=== PATIENT | male | born 1950 | race Caucasian/White ===

== ENCOUNTER → 2018-02-05 | Outpatient (CLI) | payer MEDICARE, MEDICAID ==
[2018-02-05 12:55] LABS: CHOLESTEROL 174.94 mg/dL (0-200); TRIGLYCERIDES 130 mg/dL (<150)
[2018-02-05 13:06] LABS: DIRECT LDL 117 mg/dL (<100)
== END ==
LOC: OD 11:35
PROVIDERS: ATTEND Internal Medicine
DX: E78.4 Other hyperlipidemia (principal); I10 Essential (primary) hypertension; I48.0 Paroxysmal atrial fibrillation; I42.8 Other cardiomyopathies; G47.30 Sleep apnea, unspecified; Z79.899 Other long term (current) drug therapy
CPT/HCPCS: 36415; 80061

== ENCOUNTER → 2018-09-16 | Outpatient (CLI) | payer MEDICARE, MEDICAID ==
--- NOTE | 2018-09-16 11:23 | RADIOLOGY REPORT (SQ) ---
EXAM DESCRIPTION: CT CHEST WITHOUT COMPLETED DATE/TIME: 09/16/2018 9:41 am REASON FOR STUDY: PULMONARY INFILTRATE (R91.8) R91.8 OTHER NONSPECIFIC ABNORMAL FINDING OF LUNG FIE LD COMPARISON: 01/07/2016 TECHNIQUE: CT scan performed of the chest without intravenous contrast. Images reviewed with lung, soft tissue and bone windows. Reconstructed coronal and sagittal MPR images reviewed. All images st ored on PACS. All CT scanners at this facility use dose modulation, iterative reconstruction, and/or weight based d osing when appropriate to reduce radiation dose to as low as reasonably achievable (ALARA). [facility]: Dose Right [facility]: CareDose [facility]: Dose Right [facility]: Teradose 4D [facility]: ADOP RADIATION DOSE: CT Rad equipment meets quality standard of care and radiation dose reduction techniq ues were employed. CTDIvol: 20.1 mGy. DLP: 764 mGy-cm. mGy. LIMITATIONS: No technical limitations. FINDINGS: LUNGS AND PLEURA: There are scattered part solid nodules, majority of which are either sta ble or now partially calcified - image 28 left lower lobe 6 mm nodule, previously same size but now p artially calcified. There are a few new nodules, for example image 41 right lower lobe pleural-based 7 mm. Largest new nodule is 10 mm pleural-based anterior right upper lobe. HILAR AND MEDIASTINAL STRUCTURES: No identified masses or abnormal nodes. No obvious aneurysm. HEART AND VASCULAR STRUCTURES: No aneurysm. No pericardial effusion. UPPER ABDOMEN: No significant findings. Limited exam. THYROID AND OTHER SOFT TISSUES: Subcentimeter nodule left lobe. Partially calcified subcentimeter no dule right lobe, unchanged. BONES: Nothing acute. HARDWARE: None in the chest. OTHER: No other significant findings. IMPRESSION: Mostly stable subcentimeter pulmonary nodules. There is a new 1 cm nodule in the right upper lobe. Low suspicion for malignancy, however accelerated follow-up in 6 months is recommended. Most of the nodules are too small to characterize by PET. TECHNICAL DOCUMENTATION: JOB ID: [id number] Quality ID # [id number]: Final reports with documentation of one or more dose reduction techniques (e.g., Au tomated exposure control, adjustment of the mA and/or kV according to patient size, use of iterative reconstruction technique) 2010 [employer]- All Rights Reserved Reading location - IP/workstation name: [email or web address]
== END ==
LOC: RAD 09:08
PROVIDERS: ATTEND Internal Medicine Critical Care Medicine
DX: R91.8 Other nonspecific abnormal finding of lung field (principal)
CPT/HCPCS: 71250

== ENCOUNTER → 2019-01-26 | Outpatient (CLI) | payer MEDICARE, MEDICAID ==
--- NOTE | 2019-01-26 15:34 | RADIOLOGY REPORT (SQ) ---
EXAM DESCRIPTION: ARTERIAL LOWER EXTREM BILAT COMPLETED DATE/TIME: 01/26/2019 3:23 pm REASON FOR STUDY: PAD I73.9 PERIPHERAL VASCULAR DISEASE, UNSPECIFIED COMPARISON: None. TECHNIQUE: Dynamic and static ronquillo scale and color images acquired of the lower extremity arteries. Additional selected spectral images recorded. ABIs recorded. LIMITATIONS: None. FINDINGS: RIGHT LEG: ABIS: Normal, over 1.0. INFLOW ARTERIES: Normal, no obstruction evident. FEMORAL ARTERIES:Multiphasic waveforms. Normal, no velocity elevation to suggest focal stenosis. Norm al color Doppler evaluation. No aneurysm. POPLITEAL ARTERY:Multiphasic waveforms. Normal, no velocity elevation to suggest focal stenosis. Norm al color Doppler evaluation. No aneurysm. PATENT TIBIOPERONEAL TRUNK AND 3 VESSEL RUNOFF: Yes, normal vessels. TBI: Not performed. OTHER: There is a popliteal cyst noted. This measures 2.8 x 2.6 x 1.0 cm. LEFT LEG: ABIS: Normal, over 1.0. INFLOW ARTERIES: Normal, no obstruction evident. FEMORAL ARTERIES:Multiphasic waveforms. Normal, no velocity elevation to suggest focal stenosis. Norm al color Doppler evaluation. No aneurysm. POPLITEAL ARTERY:Multiphasic waveforms. Normal, no velocity elevation to suggest focal stenosis. Norm al color Doppler evaluation. No aneurysm. PATENT TIBIOPERONEAL TRUNK AND 3 VESSEL RUNOFF: Yes, normal vessels. TBI: Not performed. OTHER: No other significant finding. IMPRESSION: NORMAL BILATERAL LOWER EXTREMITY ARTERIAL DOPPLER WITH ABIs. INCIDENTAL NOTE IS MADE OF A SMALL RIGHT POPLITEAL CYST. COMMENT: [facility] NORMAL: Greater than 1.0 MINIMAL DISEASE: 0.9 to 1.0 CLAUDICATION: 0.5 to 0.9 SEVERE ARTERIAL DISEASE: Less than 0.5 [facility] NORMAL: Greater than 1.0 (1.2 If Heavy Calcifications) NORMAL TO MILD ISCHEMIA: 0.8 to 1.0 MODERATE ISCHEMIA: 0.4 to 0.8 SEVERE ISCHEMIA: Less than 0.4 TECHNICAL DOCUMENTATION: JOB ID: [id number] [employer]- All Rights Reserved Reading location - IP/workstation name: [email or web address]
== END ==
LOC: SP 13:51
PROVIDERS: ATTEND Specialist
DX: I73.9 Peripheral vascular disease, unspecified (principal)
CPT/HCPCS: 93925

== ENCOUNTER → 2019-07-13 | Outpatient (CLI) | payer MEDICAID, MEDICARE ==
--- NOTE | 2019-07-13 10:16 | RADIOLOGY REPORT (SQ) ---
EXAM DESCRIPTION: CT CHEST WITHOUT COMPLETED DATE/TIME: 07/13/2019 9:54 am REASON FOR STUDY: COUGH R05 COUGH R91.1 SOLITARY PULMONARY NODULE COMPARISON: CT chest dated 09/16/2018 and 01/07/2016 TECHNIQUE: CT scan performed of the chest without intravenous contrast. Images reviewed with lung, soft tissue and bone windows. Reconstructed coronal and sagittal MPR images reviewed. All images st ored on PACS. All CT scanners at this facility use dose modulation, iterative reconstruction, and/or weight based d osing when appropriate to reduce radiation dose to as low as reasonably achievable (ALARA). [facility]: Dose Right [facility]: CareDose [facility]: Dose Right [facility]: Teradose 4D [facility]: Smart Dec[employer] RADIATION DOSE: CT Rad equipment meets quality standard of care and radiation dose reduction techniq ues were employed. CTDIvol: 17.8 mGy. DLP: 811 mGy-cm. mGy. LIMITATIONS: No technical limitations. FINDINGS: LUNGS AND PLEURA: Previously described 1 cm nodule in the medial aspect of the right upper lobe adjacent to the anterior mediastinum has increased in size and now 1.7 cm. It is slightly lobu lar in appearance. This is best demonstrated on series 4, image 53. There is a subpleural nodule in the right lower lobe. This is best demonstrated on series 4, image 76. This measures 1.8 cm in darwin meter. It has increased in size as well. Small ground-glass opacity best demonstrated on series 4, image 39 is grossly unchanged. This measures 8.9 mm in diameter. HILAR AND MEDIASTINAL STRUCTURES: Enlarging pretracheal and precarinal lymph nodes. There is bulky s ub- carinal adenopathy. There is right hilar adenopathy. HEART AND VASCULAR STRUCTURES: Unremarkable. UPPER ABDOMEN: No significant findings. Limited exam. THYROID AND OTHER SOFT TISSUES: No masses. No adenopathy. BONES: No significant finding. HARDWARE: None in the chest. OTHER: No other significant findings. IMPRESSION: 1. Enlarging pulmonary nodules in the right upper and lower lobes as described above. F airly extensive mediastinal, right hilar and subcarinal adenopathy. Findings are suspicious for neop lasm. Correlation with PET-CT is recommended. TECHNICAL DOCUMENTATION: JOB ID: [id number] Quality ID # 436: Final reports with documentation of one or more dose reduction techniques (e.g., Au tomated exposure control, adjustment of the mA and/or kV according to patient size, use of iterative reconstruction technique) 2010 [employer]- All Rights Reserved Reading location - IP/workstation name: [email or web address]
== END ==
LOC: RAD 09:43
PROVIDERS: ATTEND Internal Medicine Critical Care Medicine
DX: R05 Cough (principal); R91.1 Solitary pulmonary nodule
CPT/HCPCS: 71250

== ENCOUNTER → 2019-08-03 | Outpatient (CLI) | payer MEDICAID, MEDICARE ==
--- NOTE | 2019-08-03 13:27 | RADIOLOGY REPORT (SQ) ---
EXAM DESCRIPTION: MRI RT LOWER JOINT WITHOUT COMPLETED DATE/TIME: 08/03/2019 9:05 am REASON FOR STUDY: RIGHT KNEE PAIN (M25.561) M25.561 PAIN IN RIGHT KNEE COMPARISON: None. TECHNIQUE: Rightknee images acquired and stored on PACS. Multiplanar images include fat sensitive s equences as T1, water sensitive sequences as FST2 or STIR, cartilage sensitive sequences as FSPD, and gradient echo sequences. LIMITATIONS: Motion. FINDINGS: JOINT AND BURSAE: No effusion. BONE CORTEX AND MARROW: No alteration of signal to suggest marrow replacement. No worrisome bone lesi ons. No occult fracture. ACL: Intact. PCL: Intact. MCL: Intact. No periligamentous edema or fluid. LCL: Intact. No periligamentous edema or fluid. MEDIAL MENISCUS: Medial extrusion. Very little normal remaining meniscal tissue. LATERAL MENISCUS: Lateral extrusion. Very little normal remaining meniscal tissue. MEDIAL COMPARTMENT: Bulky osteophytes. No subchondral edema. LATERAL COMPARTMENT: Bulky osteophytes. Very little remaining normal cartilage. Mild subchondral ed brian tibial plateau. PATELLA: Moderate osteophytes. Subchondral cyst formation. Intact retinaculum EXTENSOR MECHANISM: Intact. Quadriceps and patella tendons normal. SOFT TISSUES: Moderate size Cazares's cyst. OTHER: No other significant finding. IMPRESSION: 1. Chronic medial and lateral meniscal tears. 2. Advanced tricompartment osteoarthritis. TECHNICAL DOCUMENTATION: JOB ID: [id number]- All Rights Reserved Reading location - IP/workstation name: [facility] [facility] [employer] [email or web address]
== END ==
LOC: RAD 07:59
PROVIDERS: ATTEND Orthopaedic Surgery
DX: M17.11 Unilateral primary osteoarthritis, right knee (principal); M23.203 Derangement of unspecified medial meniscus due to old tear or injury, right knee; M23.200 Derangement of unspecified lateral meniscus due to old tear or injury, right knee; M25.561 Pain in right knee

== ENCOUNTER → 2019-11-30 | Outpatient (CLI) | payer MEDICARE ==
[2019-11-30 17:28] LABS: ANION GAP 11 (5-19); BLOOD UREA NITROGEN 21 mg/dL (7-20); CALCIUM 10.9 mg/dL (8.4-10.2); CARBON DIOXIDE 26 mmol/L (22-30); CHLORIDE 101 mmol/L (98-107); GLUCOSE 81 mg/dL (75-110); POTASSIUM 4.8 mmol/L (3.6-5.0)
== END ==
LOC: OD 15:59
PROVIDERS: ATTEND Specialist
DX: I48.0 Paroxysmal atrial fibrillation (principal); R06.02 Shortness of breath; E78.49 Other hyperlipidemia; E78.5 Hyperlipidemia, unspecified
CPT/HCPCS: 36415; 80048

== ENCOUNTER 2020-02-21 11:34 | Inpatient (IN) | payer MEDICARE ==
[~2020-02-21 11:34] MED LIST: ROCURONIUM BROMIDE INJ 50 MG/5 ML VIAL IV ONE; SUCCINYLCHOLINE CHLORIDE INJ 200 MG/10 ML VIAL ONE
[2020-02-21] MEDS ORDERED: LEVOFLOXACIN 750 MG/D5W RTU 750 MG/150 ML RTUPB IV ONE (12:35)
[2020-02-21] MEDS ORDERED: RINGERS LACTATED IV ONE (12:35)
--- NOTE | 2020-02-21 12:38 | ER Document Report ---
ED Medical Screen (RME) - General Chief Complaint: Abdominal Pain Stated Complaint: FLANK PAIN Time Seen by Provider: 02/21/20 12:28 Primary Care Provider: SKYLER RUIZ MD [Primary Care Provider] - Follow up as needed Notes: HPI: 69-year-old male with history of hypertension high cholesterol, atrial fibrillation, cholecystectomy presenting to the emergency department complaining of right flank right lower quadrant pain over the last 4 days. Has had chills at home no definite fevers. No dysuria penile or testicular pain. Denies nausea vomiting. PHYSICAL EXAMINATION: Moderately uncomfortable. Slightly diaphoretic. Irregularly irregular heartbeat. Obese abdomen, moderate tenderness with slight guarding right lower quadrant, limited by triage positioning. Patient was given Toradol 30 mg and fentanyl 100 mcg by EMS already I have greeted and performed a rapid initial assessment of this patient. A comprehensive ED assessment and evaluation of the patient, analysis of test results and completion of medical decision making process will be conducted by an additional ED providers. TRAVEL OUTSIDE OF THE [place] IN LAST 30 DAYS: No - Related Data Allergies/Adverse Reactions: Penicillins Allergy (Severe, Verified 06/16/13 08:53) Anaphylaxis Tetanus Vaccines and Toxoid [Tetanus] Allergy (Severe, Verified 06/16/13 08:53) Anaphylaxis Past Medical History - Social History Frequency of alcohol use: None Drug Abuse: None - Past Medical History Cardiac Medical History: Reports: Hx Congestive Heart Failure, Hx Hypertension Pulmonary Medical History: Reports: Hx COPD Denies: Hx Tuberculosis GI Medical History: Reports: Hx Gastroesophageal Reflux Disease Past Surgical History: Reports: Hx Cardiac Catheterization - ablasion February 2014 Physical Exam - Vital signs Vitals: Temp Pulse Resp BP Pulse Ox 100.4 F 108 H 20 112/61 94 02/21/20 12:01 02/21/20 12:01 02/21/20 12:01 02/21/20 12:01 02/21/20 12:01 Course - Vital Signs Vital signs: Temp Pulse Resp BP Pulse Ox 99.4 F 108 H 20 112/61 94 02/21/20 12:27 02/21/20 12:01 02/21/20 12:01 02/21/20 12:01 02/21/20 12:01 Doctor's Discharge - Discharge Referrals: SKYLER RUIZ MD [Primary Care Provider] - Follow up as needed
[2020-02-21 13:08] LABS: VENOUS BLOOD BASE EXCESS -0.8 mmol/L; VENOUS BLOOD HCO3 21.7 mmol/L (20-32); VENOUS BLOOD PCO2 29.6 mmHg (35-63); VENOUS BLOOD PH 7.48 (7.30-7.42)
[2020-02-21 13:13] LABS: HEMOGLOBIN 11.4 g/dL (13.5-17.0); MEAN CORPUSCULAR HEMOGLOBIN 31.7 pg (27.0-33.4); MEAN CORPUSCULAR HGB CONC 33.4 g/dL (32.0-36.0); MEAN CORPUSCULAR VOLUME 95 fl (80-97); PLATELET COUNT 200 10^3/uL (150-450); RED BLOOD COUNT 3.58 10^6/uL (4.35-5.55); RED CELL DISTRIBUTION WIDTH 13.3 % (11.5-14.0); WHITE BLOOD COUNT 20.4 10^3/uL (4.0-10.5)
[2020-02-21 13:14] LABS: INTERNATIONAL RATION (INR) 1.22; PROTHROMBIN TIME 15.5 SEC (11.4-15.4)
[2020-02-21 13:30] LABS: ALBUMIN 3.9 g/dL (3.5-5.0); ALKALINE PHOSPHATASE 213 U/L (38-126); ANION GAP 10 (5-19); ASPARTATE AMINO TRANSFERASE 27 U/L (17-59); BILIRUBIN,DIRECT 0.4 mg/dL (0.0-0.4); BILIRUBIN,TOTAL 1.7 mg/dL (0.2-1.3); BLOOD UREA NITROGEN 20 mg/dL (7-20); CALCIUM 10.9 mg/dL (8.4-10.2); CARBON DIOXIDE 23 mmol/L (22-30); CHLORIDE 100 mmol/L (98-107); GLUCOSE 111 mg/dL (75-110); POTASSIUM 3.8 mmol/L (3.6-5.0); TOTAL PROTEIN 7.1 g/dL (6.3-8.2)
[2020-02-21 13:41] LABS: ABSOLUTE LYMPHOCYTES# (MANUAL) 1.4 10^3/uL (0.5-4.7); ABSOLUTE MONOCYTES # (MANUAL) 0.6 10^3/uL (0.1-1.4); BAND NEUTROPHILS % (MANUAL) 1 % (3-5); BASOPHILS % (MANUAL) 0 % (0-2); EOSINOPHILS % (MANUAL) 0 % (0-6); LYMPHOCYTES % (MANUAL) 7 % (13-45); MONOCYTES % (MANUAL) 3 % (3-13); RBC MORPHOLOGY COMMENT NORMO-CYTIC/CHROMIC; SEGMENTED NEUTROPHILS % (MAN) 89 % (42-78); TOTAL CELLS COUNTED 100
[2020-02-21 13:43] LABS: PLATELET COMMENT ADEQUATE; PLATELET LARGE PRESENT
[2020-02-21] MEDS ORDERED: DEXAMETHASONE SOD PHOSPHATE INJ 4 MG/1 ML VIAL ONE (14:04)
[2020-02-21] MEDS ORDERED: ONDANSETRON HCL INJ/PF 4 MG/2 ML SDV ONE (14:04)
[2020-02-21] MEDS ORDERED: LIDOCAINE 2% INJ-PF (20 MG/ML) 2 ML AMPUL ONE (14:04)
[2020-02-21] MEDS ORDERED: ROCURONIUM BROMIDE INJ 50 MG/5 ML VIAL IV ONE (14:04)
[2020-02-21] MEDS ORDERED: VECURONIUM BROMIDE INJ 10 MG VIAL IV ONE (14:04)
[2020-02-21] MEDS ORDERED: PHENYLEPHRINE HCL INJ/PF 10 MG/1 ML SDV ONE (14:04)
--- NOTE | 2020-02-21 14:38 | ER Document Report ---
ED General - General Chief Complaint: Abdominal Pain Stated Complaint: FLANK PAIN Time Seen by Provider: 02/21/20 12:28 Mode of Arrival: Medic Information source: Patient TRAVEL OUTSIDE OF THE [place] IN LAST 30 DAYS: No - HPI Onset: Other - over the last 3 days Onset/Duration: Gradual Quality of pain: Stabbing Severity: Moderate Pain Level: 3 Associated symptoms: Other - hematuria, right sided flank and groin pain, chills Exacerbated by: Movement Relieved by: Denies Similar symptoms previously: No Recently seen / treated by doctor: No Notes: 69 year old male with a history of Paroxysmal AFib s/p Ablation, CHF, HTN, HLD, GERD who has had his gallbladder removed here in the ER for right sided flank p ain, RLQ pain, and right groin pain with associated hematuria and chills for the last 3-4 days. The patient has no history of kidney stones and he still has his appendix. The patient denies fevers, sweat, pain with urination. The patient also has been having left shoulder pains for months but this is a chronic issue. - Related Data Allergies/Adverse Reactions: Penicillins Allergy (Severe, Verified 06/16/13 08:53) Anaphylaxis Tetanus Vaccines and Toxoid [Tetanus] Allergy (Severe, Verified 06/16/13 08:53) Anaphylaxis Past Medical History - General Information source: Patient - Social History Smoking Status: Former Smoker Frequency of alcohol use: None Drug Abuse: None Family History: Reviewed & Not Pertinent Patient has homicidal ideation: No - Past Medical History Cardiac Medical History: Reports: Hx Atrial Fibrillation, Hx Congestive Heart Failure, Hx Hypercholesterolemia, Hx Hypertension Pulmonary Medical History: Reports: Hx COPD Denies: Hx Tuberculosis GI Medical History: Reports: Hx Gastroesophageal Reflux Disease Past Surgical History: Reports: Hx Cardiac Catheterization - ablasion February 2014 Review of Systems - Review of Systems Constitutional: Chills EENT: No symptoms reported Cardiovascular: No symptoms reported Respiratory: No symptoms reported Gastrointestinal: Abdominal pain - right sided Genitourinary: Flank pain - right sided, Hematuria Male Genitourinary: No symptoms reported Musculoskeletal: Joint pain - left shoulder Skin: No symptoms reported Hematologic/Lymphatic: No symptoms reported Neurological/Psychological: No symptoms reported -: Yes All other systems reviewed and negative Physical Exam - Vital signs Vitals: Temp Pulse Resp BP Pulse Ox 100.4 F 108 H 20 112/61 94 02/21/20 12:01 02/21/20 12:01 02/21/20 12:01 02/21/20 12:01 02/21/20 12:01 - Notes Notes: GENERAL: Well-appearing, well-nourished and in no acute distress. HEAD: Atraumatic, normocephalic. EYES: Pupils equal round and reactive to light, extraocular movements intact, sclera anicteric, conjunctiva are normal. ENT: External ears normal, nares patent, oropharynx clear without exudates. Moist mucous membranes. NECK: Normal range of motion, supple without lymphadenopathy or JVD. LUNGS: Breath sounds clear to auscultation bilaterally and equal. No wheezes rales or rhonchi. HEART: Regular rate and rhythm without murmurs, rubs or gallops. ABDOMEN: Soft, moderate tenderness in RLQ and Suprapubic area. Mild tenderness in right flank and left lower quadrant. Normoactive bowel sounds. No guarding, no rebound. No masses appreciated. EXTREMITIES: Normal range of motion, no pitting or edema. No clubbing or cyanosis. NEUROLOGICAL: Cranial nerves II through XII grossly intact. Normal speech, normal gait. PSYCH: Normal mood, normal affect. SKIN: Warm, Dry, normal turgor, no rashes or lesions noted. Course - Re-evaluation Re-evalutation: 02/21/20 14:46 I arrived to my shift at 2PM. The patient had been waiting for over 2 hours after his MSE exam to be seen by a provider. Fluids and antibiotics were ordered without an infectious source identified at the time I saw the patient. Patient sounds like he either has a kidney stone or pyelonephrtitis although appendicitis is also on the differential. Will obtain a CT scan at this time. 02/21/20 15:41 The patient has acute appendicitis on CT but he also seems to have diffuse metastatic disease. When speaking with the Radiologist, it would seem the patient had lung nodules about a year ago which now seem bigger and there are now concerning lymph nodes and bone lesions concerning for metastatic disease. The patient was told of all his findings. Patient had already received IV Levaquin so IV Flagyl added. Dr. Doherty of Surgery was consulted and he will see the patient in the ER. 02/21/20 16:24 Dr. Doherty admitted the patient. Medicine was also consulted for help with management of his multiple medical issues. - Vital Signs Vital signs: Temp Pulse Resp BP Pulse Ox 99.4 F 108 H 20 112/61 94 02/21/20 12:27 02/21/20 12:01 02/21/20 12:01 02/21/20 12:01 02/21/20 12:01 - Laboratory Result Diagrams: 02/21/20 12:39 02/21/20 12:39 Laboratory results interpreted by me: 02/21/20 02/21/20 02/21/20 12:39 12:39 12:39 WBC 20.4 H RBC 3.58 L Hgb 11.4 L Hct 34.0 L Seg Neuts % (Manual) 89 H Band Neutrophils % 1 L Lymphocytes % (Manual) 7 L Abs Neuts (Manual) 18.4 H PT 15.5 H VBG pH VBG pCO2 Sodium 132.8 L Glucose 111 H Calcium 10.9 H Total Bilirubin 1.7 H Alkaline Phosphatase 213 H Urine Blood 02/21/20 02/21/20 12:39 14:40 WBC RBC Hgb Hct Seg Neuts % (Manual) Band Neutrophils % Lymphocytes % (Manual) Abs Neuts (Manual) PT VBG pH 7.48 H VBG pCO2 29.6 L Sodium Glucose Calcium Total Bilirubin Alkaline Phosphatase Urine Blood MODERATE H - Diagnostic Test Radiology reviewed: Image reviewed, Reports reviewed Critical Care Note - Critical Care Note Total time excluding time spent on procedures (mins): 31 Discharge - Discharge Clinical Impression: Appendicitis Qualifiers: Appendicitis type: acute appendicitis Acute appendicitis type: with localized peritonitis Appendicitis gangrene presence: unspecified whether gangrene present Appendicitis perforation presence: without perforation Appendicitis abscess presence: unspecified whether abscess present Qualified Code(s): K35.30 - Acute appendicitis with localized peritonitis, without perforation or gangrene Metastasis Qualifiers: Area of secondary neoplastic involvement: bone Qualified Code(s): C79.51 - Secondary malignant neoplasm of bone Condition: Stable Disposition: ADMITTED INPATIENT Admitting Provider: Surgicalist Unit Admitted: [facility]
[2020-02-21 15:01] LABS: APPEARANCE,URINE SLIGHTLY-CLOUDY; BILIRUBIN,URINE NEGATIVE (NEGATIVE); COLOR,URINE YELLOW; GLUCOSE, URINE NEGATIVE (NEGATIVE); KETONES,URINE NEGATIVE (NEGATIVE); LEUKOCYTE ESTERASE,URINE NEGATIVE (NEGATIVE); NITRITE,URINE NEGATIVE (NEGATIVE); PROTEIN,URINE NEGATIVE (NEGATIVE); URINE SPECIFIC GRAVITY 1.013; UROBILINOGEN,URINE NEGATIVE mg/dL (<2.0)
--- NOTE | 2020-02-21 15:25 | RADIOLOGY REPORT (SQ) ---
EXAM DESCRIPTION: CT ABD/PELVIS NO ORAL OR IV IMAGES COMPLETED DATE/TIME: 02/21/2020 2:55 pm REASON FOR STUDY: eval for kidney stone COMPARISON: None. TECHNIQUE: CT scan of the abdomen and pelvis performed without intravenous or oral contrast. Images reviewed with lung, soft tissue, and bone windows. Reconstructed coronal and sagittal MPR images revi ewed. All images stored on PACS. All CT scanners at this facility use dose modulation, iterative reconstruction, and/or weight based d osing when appropriate to reduce radiation dose to as low as reasonably achievable (ALARA). [facility]: Dose Right [facility]: CareDose [facility]: Dose Right [facility]: Teradose 4D [facility]: Smart [employer] RADIATION DOSE: CT Rad equipment meets quality standard of care and radiation dose reduction techniq ues were employed. CTDIvol: 17.9 mGy. DLP: 966 mGy-cm.mGy. LIMITATIONS: None. FINDINGS: LOWER CHEST: Increased size of a 2.1 cm ovoid right lower lobe peripheral pulmonary nodule with low internal attenuation (Hounsfield units 13), previously measuring 1.6 cm (series 3, image 9) . NON-CONTRASTED LIVER, SPLEEN, ADRENALS: Evaluation limited by lack of IV contrast. No identified sign ificant masses. PANCREAS: No masses. No peripancreatic inflammatory changes. GALLBLADDER: Surgically absent. RIGHT KIDNEY AND URETER: No suspicious masses. Assessment limited by lack of IV contrast. Stable exo phytic upper pole cyst. Likely punctate nonobstructing interpolar stone (image 40). No hydronephro sis or hydroureter. LEFT KIDNEY AND URETER: No suspicious masses. Assessment limited by lack of IV contrast. Likely vas cular calcifications, although punctate nonobstructing stones not excluded. No hydronephrosis or hy droureter. AORTA AND RETROPERITONEUM: No aneurysm. No retroperitoneal masses or adenopathy. BOWEL AND PERITONEAL CAVITY: The appendix is dilated measuring up to 18 mm (series 3, image 70) with extensive fatty stranding about the cecum. No evidence of free intraperitoneal gas or focal drainabl e collection. Prominent right lower quadrant lymph nodes measuring up to 16 mm in short axis (series 3, image 44). No evidence of intestinal obstruction. No additional focal bowel wall thickening ski n. Scattered colonic diverticula. Likely intramural lipoma along the rectosigmoid colon (series 3, image 72) APPENDIX: As above. PELVIS, BLADDER, AND ABDOMINAL WALL:Decompressed urinary bladder. Scattered prostatic calcifications with an enlarged prostate gland measuring 5.9 cm transversely. BONES: Multiple lucent lesions throughout the visualized skeleton. For reference there is a left fred ac lesion measuring 3.3 cm (series 3, image 62). Multiple additional lytic lesions involving the sac rum, bilateral ilium and multiple vertebral bodies. There is L2 inferior endplate compression deform ity, possibly pathologic, chronicity uncertain. OTHER: No other significant finding. IMPRESSION: 1. Increased size of the right lower lobe pulmonary nodule measuring 2.1 cm, previously 1.6 cm. Malignancy is highy suspected. PET-CT or tissue sampling should be considered 2. Dilated appendix with significant pericecal inflammatory change compatible with acute appendiciti s. No focal drainable collection. Recommend surgical consultation. 3. Innumerable lucent osseous lesions suggestive neoplasm, likely metastatic disease versus multiple myeloma. Findings discussed with Dr. Gamble At 1519 hours on 02/21/2020. COMMENT: Quality ID # [id number]: Final reports with documentation of one or more dose reduction techniques (e.g., Automated exposure control, adjustment of the mA and/or kV according to patient size, use of iterative reconstruction technique) TECHNICAL DOCUMENTATION: JOB ID: [id number] 2010 [employer]- All Rights Reserved Reading location - IP/workstation name: [email or web address]
[2020-02-21] MEDS: METRONIDAZOLE 500 MG/NS RTU 500 MG/100 ML RTUPB IV ONE ×2 (16:06→17:14)
--- NOTE | 2020-02-21 16:16 | PDOC H&P ---
History of Present Illness Admission Date/PCP: ETELVINA IBRAHIM MD Patient complains of: Abdominal pain History of Present Illness: EDINSON BLOCK is a 69 year old male presenting with 4-day history of right lower quadrant abdominal pain that has progressively worsened along with fevers and chills today. He has had some constipation over the last couple of days. Patient notes that he did have a colonoscopy done 2 years ago and was noted with some polyps at that time. He has a history of laparoscopic cholecystectomy that was complicated requiring open liver resection a number of years ago. No other abdominal surgeries. Patient has known history of pulmonary nodules and currently has multiple bony complaints including left shoulder pain and lower back pain. He has not had completion of his work-up for his pulmonary nodules in the past although CT scan was suspicious for malignancy. He has a remote history of cigarette smoking abuse. Past Medical History Cardiac Medical History: Reports: Atrial Fibrillation, Congestive Heart Failure - Patient notes that he does have good exercise tolerance walking 3 miles/day, Hyperlipidema, Hypertension Pulmonary Medical History: Reports: Sleep Apnea - Patient uses a BiPAP at night. He denies any history of COPD. Denies: Tuberculosis GI Medical History: Reports: Gastroesophageal Reflux Disease Past Surgical History Past Surgical History: Reports: Cardiac Catheterization - ablasion February 2014, Cholecystectomy - Cholecystectomy complicated requiring liver resection. Social History Smoking Status: Former Smoker Frequency of Alcohol Use: None Hx Recreational Drug Use: No Hx Prescription Drug Abuse: No Family History Family History: Reviewed & Not Pertinent Parental Family History Reviewed: No Children Family History Reviewed: No Sibling(s) Family History Reviewed.: No Medication/Allergy Home Medications: Fiber [Fiber Choice] 1 each PO DAILY 06/13/13 Furosemide [Lasix 40 mg Tablet] 40 mg PO QAM #30 tablet 06/20/13 Lisinopril [Prinivil 10 mg Tablet] 10 mg PO DAILY #30 tablet 06/20/13 Spironolactone 25 mg PO DAILY #30 tablet 06/20/13 Albuterol Sulfate [Proair HFA] 1 - 2 puff IH Q4 PRN 10/29/14 Meloxicam [Mobic 7.5 mg Tablet] 7.5 mg PO BID PRN 10/29/14 Omeprazole [Prilosec] 40 mg PO DAILY 10/29/14 Carvedilol [Coreg 12.5 mg Tablet] 12.5 mg PO Q12 10/30/14 Hydrocodone/Chlorphen P-Stirex [Hydrocodone-Chlorphen ER Susp] 5 ml PO Q12H 10/30/14 Levofloxacin [Levaquin 750 mg Tablet] 750 mg PO DAILY #6 tablet 11/03/14 Montelukast Sodium [Singulair 10 mg Tablet] 10 mg PO QHS #30 tablet 11/03/14 Prednisone [Deltasone 10 mg Tablet] 10 mg PO ASDIR PRN #21 tablet 11/04/14 Allergies/Adverse Reactions: Penicillins Allergy (Severe, Verified 06/16/13 08:53) Anaphylaxis Tetanus Vaccines and Toxoid [Tetanus] Allergy (Severe, Verified 06/16/13 08:53) Anaphylaxis Review of Systems All systems: reviewed and no additional remarkable complaints except as stated Constitutional: PRESENT: as per HPI Cardiovascular: PRESENT: as per HPI - Patient denies any active chest pain although he does have some pain in his left shoulder radiating across his upper chest which has been present for several weeks now. Respiratory: PRESENT: as per HPI - Patient denies any active cough. Gastrointestinal: PRESENT: as per HPI Genitourinary: PRESENT: difficulty urinating Musculoskeletal: PRESENT: back pain Physical Exam Vital Signs: Temp Pulse Resp BP Pulse Ox 99.4 F 108 H 20 112/61 94 02/21/20 12:27 02/21/20 12:01 02/21/20 12:01 02/21/20 12:01 02/21/20 12:01 Intake & Output 02/20/20 02/21/20 02/22/20 06:59 06:59 06:59 Weight 110.4 kg General appearance: PRESENT: no acute distress, cooperative Eye exam: PRESENT: conjunctiva pink Neck exam: PRESENT: other - Supple with no masses and no tenderness Respiratory exam: PRESENT: clear to auscultation anshul Cardiovascular exam: PRESENT: RRR GI/Abdominal exam: PRESENT: other - Soft, mildly distended, focal tenderness to palpation the right lower quadrant with guarding and rebound. Well-healed right subcostal scar. Extremities exam: PRESENT: other - No edema and no tenderness Neurological exam: PRESENT: alert, awake Psychiatric exam: PRESENT: appropriate affect Skin exam: PRESENT: warm Results Laboratory Results: 02/21/20 12:39 02/21/20 12:39 02/21/20 02/21/20 02/21/20 12:39 12:39 12:39 WBC 20.4 H RBC 3.58 L Hgb 11.4 L Hct 34.0 L MCV 95 MCH 31.7 MCHC 33.4 RDW 13.3 Plt Count 200 Seg Neutrophils % Not Reportable VBG pH 7.48 H VBG pCO2 29.6 L VBG HCO3 21.7 VBG Base Excess -0.8 Sodium 132.8 L Potassium 3.8 Chloride 100 Carbon Dioxide 23 Anion Gap 10 BUN 20 Creatinine 0.86 Est GFR ( Amer) > 60 Glucose 111 H Lactic Acid Calcium 10.9 H Total Bilirubin 1.7 H AST 27 Alkaline Phosphatase 213 H Total Protein 7.1 Albumin 3.9 Urine Color Urine Appearance Urine pH Ur Specific [place] Urine Protein Urine Glucose (UA) Urine Ketones Urine Blood Urine Nitrite Ur Leukocyte Esterase Urine WBC (Auto) Urine RBC (Auto) 02/21/20 02/21/20 02/21/20 12:39 14:38 14:40 WBC RBC Hgb Hct MCV MCH MCHC RDW Plt Count Seg Neutrophils % VBG pH VBG pCO2 VBG HCO3 VBG Base Excess Sodium Potassium Chloride Carbon Dioxide Anion Gap BUN Creatinine Est GFR ( Amer) Glucose Lactic Acid 0.7 1.0 Calcium Total Bilirubin AST Alkaline Phosphatase Total Protein Albumin Urine Color YELLOW Urine Appearance SLIGHTLY-CLOUDY Urine pH 5.0 Ur Specific [place] 1.013 Urine Protein NEGATIVE Urine Glucose (UA) NEGATIVE Urine Ketones NEGATIVE Urine Blood MODERATE H Urine Nitrite NEGATIVE Ur Leukocyte Esterase NEGATIVE Urine WBC (Auto) 1 Urine RBC (Auto) 2 Impressions: Abdomen/Pelvis CT 02/21/20 14:37 IMPRESSION: 1. Increased size of the right lower lobe pulmonary nodule measuring 2.1 cm, previously 1.6 cm. Malignancy is highy suspected. PET-CT or tissue sampling should be considered 2. Dilated appendix with significant pericecal inflammatory change compatible with acute appendicitis. No focal drainable collection. Recommend surgical consultation. 3. Innumerable lucent osseous lesions suggestive neoplasm, likely metastatic disease versus multiple myeloma. Findings discussed with Dr. Gamble At 1519 hours on 02/21/2020. Assessment & Plan - Diagnosis (1) Appendicitis Qualifiers: Appendicitis type: acute appendicitis Acute appendicitis type: with localized peritonitis Appendicitis gangrene presence: unspecified whether gangrene present Appendicitis perforation presence: without perforation Appendicitis abscess presence: unspecified whether abscess present Qualified Code(s): K35.30 - Acute appendicitis with localized peritonitis, without perforation or gangrene Is this a current diagnosis for this admission?: Yes Plan: Lot of inflammatory changes seen around the cecum in the setting of 4 days of symptoms. But no evidence of perforation by CT scan. Antibiotics have already been given in the ER. We will plan laparoscopic appendectomy possible open appendectomy. May require a hand port. I have had a long discussion with the patient concerning the risks and benefits of the surgery including risk of mistaken diagnosis, distinct possibility of requiring an open or a hand-assisted approach, wound complications including hernia, heart-lung complications, infection, bleeding, adjacent structure injury, and stump leak. Patient understands all my concerns and agrees to proceed. 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 Will need further work-up after he has recovered from his appendicitis.
[2020-02-21] MEDS ORDERED: MORPHINE SULFATE 10 MG/ML INJ IV ONE (16:28)
[2020-02-21] MEDS ORDERED: ALBUTEROL SULFATE 0.083% NEB 2.5 MG/3 ML AMPUL NEB PRN (16:31)
[2020-02-21] MEDS ORDERED: ACETAMINOPHEN 650 MG SUPP.RECT PR PRN (16:33)
[2020-02-21] MEDS ORDERED: ACETAMINOPHEN 325 MG TABLET PO PRN (16:33)
[2020-02-21] MEDS ORDERED: HYDRALAZINE HCL INJ/PF 20 MG/1 ML SDV IV PRN (16:34)
[2020-02-21] MEDS ORDERED: IPRATROPIUM/ALBUTEROL 0.5-2.5 MG/3 ML AMPUL NEB ONE (16:45)
[2020-02-21] MEDS ORDERED: BUPIVACAINE HCL 0.25 % INJ/PF (2.5 MG/1 ML) 30 ML VIAL ONE (17:06)
[2020-02-21 17:22] LABS: HEMATOCRIT 32.2 % (37.9-51.0); HEMOGLOBIN 10.8 g/dL (13.5-17.0); MEAN CORPUSCULAR HEMOGLOBIN 31.8 pg (27.0-33.4); MEAN CORPUSCULAR HGB CONC 33.4 g/dL (32.0-36.0); MEAN CORPUSCULAR VOLUME 95 fl (80-97); PLATELET COUNT 188 10^3/uL (150-450); RED BLOOD COUNT 3.39 10^6/uL (4.35-5.55); RED CELL DISTRIBUTION WIDTH 13.6 % (11.5-14.0); WHITE BLOOD COUNT 20.5 10^3/uL (4.0-10.5)
[2020-02-21 17:47] LABS: ANION GAP 9 (5-19); BLOOD UREA NITROGEN 20 mg/dL (7-20); CALCIUM 10.6 mg/dL (8.4-10.2); CARBON DIOXIDE 24 mmol/L (22-30); CHLORIDE 100 mmol/L (98-107); GLUCOSE 111 mg/dL (75-110); POTASSIUM 3.8 mmol/L (3.6-5.0)
[2020-02-21] MEDS ORDERED: HYDROMORPHONE HCL INJ/PF 2 MG/ML AMPULE ONE (17:47)
[2020-02-21] MEDS ORDERED: MIDAZOLAM 2 MG/2 ML INJ ONE ×2 (17:47→22:44)
[2020-02-21] MEDS ORDERED: PROPOFOL INJ 200 MG/20 ML VIAL IV ONE (17:47)
[2020-02-21 17:55] LABS: ABSOLUTE LYMPHOCYTES# (MANUAL) 1.2 10^3/uL (0.5-4.7); ABSOLUTE MONOCYTES # (MANUAL) 2.3 10^3/uL (0.1-1.4); BASOPHILS % (MANUAL) 0 % (0-2); EOSINOPHILS % (MANUAL) 0 % (0-6); LYMPHOCYTES % (MANUAL) 6 % (13-45); MONOCYTES % (MANUAL) 11 % (3-13); SEGMENTED NEUTROPHILS % (MAN) 83 % (42-78); TOTAL CELLS COUNTED 100
[2020-02-21 17:56] LABS: PLATELET COMMENT ADEQUATE
[2020-02-21 17:59] LABS: OVALOCYTES SLIGHT
[2020-02-21] MEDS ORDERED: TIZANIDINE HCL 4 MG TABLET PO PRN (18:01)
[2020-02-21] MEDS ORDERED: PROMETHAZINE HCL INJ 25 MG/1 ML VIAL IV PRN ×3 (18:12→20:15)
[2020-02-21] MEDS ORDERED: NORMAL SALINE 1000 ML 1,000 ML IV PRN (18:12)
[2020-02-21] MEDS ORDERED: MAGNESIUM HYDROXIDE SUSP 30 ML UDCUP PO PRN (18:12)
[2020-02-21] MEDS ORDERED: MAG HYDROX/AL HYDROX/SIMETH SUSP 30 ML UDCUP PO PRN (18:12)
[2020-02-21] MEDS ORDERED: MORPHINE SULFATE 10 MG/ML INJ IV PRN (18:22)
--- NOTE | 2020-02-21 18:44 | PDOC H&P ---
History of Present Illness Admission Date/PCP: 02/21/20 16:04 ETELVINA IBRAHIM MD Patient complains of: abdominal pain History of Present Illness: EDINSON DIAZ is a 69 year old male with the past medical history significant for chronic CHF, hypertension, atrial fibrillation post ablation (not requiring rhythm/rate control or anticoagulant), COPD, HAIDER (BiPAP nightly), and known lung nodules without completed work-up due to COVID 19 delays who presented to the emergency department today with a complaint of 4 days of progressively worsening abdominal discomfort, nausea, vomiting, anorexia, with generalized sense of unwellness and low-grade temperature. Evaluation emergency department revealed fever (100.4), tachycardia (HR 117), tachypnea (RR 26), leukocytosis (WBCs 20.5 with left-sided shift), and CT imaging demonstrating dilated appendix with significant pericecal inflammatory changes compatible with acute appendicitis, increased size of the pulmonary nodules; malignancy highly suspected. Numerous lucent osseous lesions suggestive of neoplasm; metastatic disease versus multiple myeloma. Patient has been provided IV fluids, IV Levaquin and metronidazole. He has been referred to the surgical service for operative management of his acute si nusitis. Cardiology has been consulted related to elevated troponin of 1.17. Oncology consulted to assist with the metastatic work-up. He is referred to the hospitalist service for admission and management of the above-stated complaints findings. Past Medical History Cardiac Medical History: Reports: Atrial Fibrillation, Congestive Heart Failure, Hyperlipidema, Hypertension Pulmonary Medical History: Reports: Chronic Obstructive Pulmonary Disease (COPD), Sleep Apnea - Patient uses a BiPAP at night. Denies: Tuberculosis EENT Medical History: Reports: None Neurological Medical History: Reports: None Endocrine Medical History: Reports: Obesity Denies: Diabetes Mellitus Type 2, Hypothyroidism Renal/ Medical History: Reports: None Malignancy Medical History: Reports: Other - new Dx lung nodules w/ bone mets GI Medical History: Reports: Gastroesophageal Reflux Disease Skin Medical History: Reports: None Psychiatric Medical History: Reports: None Traumatic Medical History: Reports: None Hematology: Reports: None Infectious Medical History: Reports: None Past Surgical History Past Surgical History: Reports: Cardiac Catheterization - ablasion February 2014, Cholecystectomy - Cholecystectomy complicated requiring liver resection. Social History Information Source: Patient Lives with: Family Smoking Status: Former Smoker Frequency of Alcohol Use: None Hx Recreational Drug Use: No Hx Prescription Drug Abuse: No - Advance Directive Resuscitation Status: Full Code Surrogate healthcare decision maker:: Patient's , Katja Diaz Family History Family History: Reviewed & Not Pertinent Parental Family History Reviewed: Yes Children Family History Reviewed: Yes Sibling(s) Family History Reviewed.: Yes Medication/Allergy Home Medications: Furosemide [Lasix 40 mg Tablet] 40 mg PO QAM #30 tablet 06/20/13 Lisinopril [Prinivil 10 mg Tablet] 10 mg PO DAILY #30 tablet 06/20/13 Spironolactone 25 mg PO DAILY #30 tablet 06/20/13 Carvedilol [Coreg 12.5 mg Tablet] 12.5 mg PO Q12 10/30/14 Montelukast Sodium [Singulair 10 mg Tablet] 10 mg PO QHS #30 tablet 11/03/14 Aspirin [Ecotrin 81 mg EC Tablet] 81 mg PO DAILY 02/21/20 Atorvastatin Calcium [Lipitor 20 mg Tablet] 20 mg PO QHS 02/21/20 Cyanocobalamin (Vitamin B-12) [Vitamin B-12 1000 Mcg Tablet] 2,000 mcg PO BID 02/21/20 Diclofenac Sodium 2 gm TOP QIDP PRN 02/21/20 Docusate Sodium [Colace 100 mg Capsule] 100 mg PO DAILY 02/21/20 Flecainide Acetate [Tambocor 100 mg Tablet] 100 mg PO DAILY 02/21/20 Hydrocodone/Acetaminophen [[place] 5-325 mg Tablet] 1 tab PO Q6HP PRN MDD filled 02/16 for 5 day supply 02/21/20 [place]-3 Fatty Acids/Fish Oil [[place] 3 Fish Oil Softgel] 1 each PO BID 02/21/20 Tizanidine HCl 4 mg PO Q8HP PRN 02/21/20 Allergies/Adverse Reactions: Penicillins Allergy (Severe, Verified 06/16/13 08:53) Anaphylaxis Tetanus Vaccines and Toxoid [Tetanus] Allergy (Severe, Verified 06/16/13 08:53) Anaphylaxis Review of Systems Constitutional: PRESENT: anorexia, fatigue, fever(s). ABSENT: chills, headache(s), weight gain, weight loss Eyes: ABSENT: visual disturbances Ears: ABSENT: hearing changes Cardiovascular: ABSENT: chest pain, dyspnea on exertion, edema, orthropnea, palpitations Respiratory: ABSENT: cough, hemoptysis Gastrointestinal: PRESENT: as per HPI, abdominal pain, nausea. ABSENT: constipation, diarrhea, hematemesis, hematochezia, vomiting Genitourinary: ABSENT: dysuria, hematuria Musculoskeletal: PRESENT: back pain. ABSENT: joint swelling Integumentary: ABSENT: rash, wounds Neurological: ABSENT: abnormal gait, abnormal speech, confusion, dizziness, focal weakness, syncope Psychiatric: ABSENT: anxiety, depression, homidical ideation, suicidal ideation Endocrine: ABSENT: cold intolerance, heat intolerance, polydipsia, polyuria Hematologic/Lymphatic: ABSENT: easy bleeding, easy bruising Physical Exam Vital Signs: Temp Pulse Resp BP Pulse Ox 99.1 F 100 24 H 136/102 H 98 02/21/20 17:48 02/21/20 17:48 02/21/20 17:48 02/21/20 17:48 02/21/20 17:48 Intake & Output 02/20/20 02/21/20 02/22/20 06:59 06:59 06:59 Intake Total 1117 Balance 1117 Weight 110.4 kg General appearance: PRESENT: no acute distress, mild distress - acutely ill appearing, well-developed, well-nourished, other Head exam: PRESENT: atraumatic, normocephalic Eye exam: PRESENT: conjunctiva pink, EOMI, PERRLA. ABSENT: scleral icterus Mouth exam: PRESENT: moist, tongue midline Respiratory exam: PRESENT: rhonchi, symmetrical, unlabored. ABSENT: rales, wheezes Cardiovascular exam: PRESENT: RRR, +S1, +S2, tachycardia. ABSENT: diastolic murmur, rubs, systolic murmur Pulses: PRESENT: normal dorsalis pedis pul Vascular exam: PRESENT: pallor GI/Abdominal exam: PRESENT: guarding, hypoactive bowel sounds, soft, tenderness. ABSENT: distended, mass, organolmegaly, rebound Rectal exam: PRESENT: deferred Extremities exam: PRESENT: full ROM. ABSENT: calf tenderness, clubbing, pedal edema Neurological exam: PRESENT: alert, awake, oriented to person, oriented to place, oriented to time, oriented to situation, CN II-XII grossly intact. ABSENT: motor sensory deficit Psychiatric exam: PRESENT: appropriate affect, normal mood. ABSENT: homicidal ideation, suicidal ideation Skin exam: PRESENT: dry, intact, warm, other - pale/diaphoretic. ABSENT: cyanosis, rash Results Laboratory Results: 02/21/20 16:58 02/21/20 16:58 02/21/20 02/21/20 02/21/20 12:39 12:39 12:39 WBC 20.4 H RBC 3.58 L Hgb 11.4 L Hct 34.0 L MCV 95 MCH 31.7 MCHC 33.4 RDW 13.3 Plt Count 200 Seg Neutrophils % Not Reportable VBG pH 7.48 H VBG pCO2 29.6 L VBG HCO3 21.7 VBG Base Excess -0.8 Sodium 132.8 L Potassium 3.8 Chloride 100 Carbon Dioxide 23 Anion Gap 10 BUN 20 Creatinine 0.86 Est GFR ( Amer) > 60 Glucose 111 H Lactic Acid Calcium 10.9 H Total Bilirubin 1.7 H AST 27 Alkaline Phosphatase 213 H Total Protein 7.1 Albumin 3.9 Urine Color Urine Appearance Urine pH Ur Specific [place] Urine Protein Urine Glucose (UA) Urine Ketones Urine Blood Urine Nitrite Ur Leukocyte Esterase Urine WBC (Auto) Urine RBC (Auto) 02/21/20 02/21/20 02/21/20 12:39 14:38 14:40 WBC RBC Hgb Hct MCV MCH MCHC RDW Plt Count Seg Neutrophils % VBG pH VBG pCO2 VBG HCO3 VBG Base Excess Sodium Potassium Chloride Carbon Dioxide Anion Gap BUN Creatinine Est GFR ( Amer) Glucose Lactic Acid 0.7 1.0 Calcium Total Bilirubin AST Alkaline Phosphatase Total Protein Albumin Urine Color YELLOW Urine Appearance SLIGHTLY-CLOUDY Urine pH 5.0 Ur Specific [place] 1.013 Urine Protein NEGATIVE Urine Glucose (UA) NEGATIVE Urine Ketones NEGATIVE Urine Blood MODERATE H Urine Nitrite NEGATIVE Ur Leukocyte Esterase NEGATIVE Urine WBC (Auto) 1 Urine RBC (Auto) 2 02/21/20 02/21/20 16:58 16:58 WBC 20.5 H RBC 3.39 L Hgb 10.8 L Hct 32.2 L MCV 95 MCH 31.8 MCHC 33.4 RDW 13.6 Plt Count 188 Seg Neutrophils % Not Reportable VBG pH VBG pCO2 VBG HCO3 VBG Base Excess Sodium 132.7 L Potassium 3.8 Chloride 100 Carbon Dioxide 24 Anion Gap 9 BUN 20 Creatinine 0.90 Est GFR ( Amer) > 60 Glucose 111 H Lactic Acid Calcium 10.6 H Total Bilirubin AST Alkaline Phosphatase Total Protein Albumin Urine Color Urine Appearance Urine pH Ur Specific [place] Urine Protein Urine Glucose (UA) Urine Ketones Urine Blood Urine Nitrite Ur Leukocyte Esterase Urine WBC (Auto) Urine RBC (Auto) 02/21/20 16:15 Troponin I 1.170 Impressions: Abdomen/Pelvis CT 02/21/20 14:37 IMPRESSION: 1. Increased size of the right lower lobe pulmonary nodule measuring 2.1 cm, previously 1.6 cm. Malignancy is highy suspected. PET-CT or tissue sampling should be considered 2. Dilated appendix with significant pericecal inflammatory change compatible with acute appendicitis. No focal drainable collection. Recommend surgical consultation. 3. Innumerable lucent osseous lesions suggestive neoplasm, likely metastatic disease versus multiple myeloma. Findings discussed with Dr. Gamble At 1519 hours on 02/21/2020. Assessment and Plan - Diagnosis (1) Appendicitis Qualifiers: Appendicitis type: acute appendicitis Acute appendicitis type: with localized peritonitis Appendicitis gangrene presence: unspecified whether gangrene present Appendicitis perforation presence: without perforation A ppendicitis abscess presence: unspecified whether abscess present Qualified Code(s): K35.30 - Acute appendicitis with localized peritonitis, without perforation or gangrene Is this a current diagnosis for this admission?: Yes Plan: Patient is admitted to [facility] on continuous telemetry. Blood cultures pending. He is empirically placed on IV Levaquin (penicillin allergy; anaphylaxis) and metronidazole. Remain in n.p.o. status with IV fluids for hydration. Surgery is consulted; primary management per Dr. Rondon's expertise. Dr. Vargas consulted for cardiac clearance given elevated troponin and cardiac history. Antiemetics and analgesics as needed. (2) Elevated troponin Is this a current diagnosis for this admission?: Yes Plan: Troponin 1.17; possibly demand ischemia r/t sepsis/acute appendicitis. EKG shows sinus rhythm; nonsepcific intraventricular delay. No ST segment changes. Patient denied chest discomfort and palpitations on my discussion. Admitted to chronic shoulder discomfort to ED provider. Per Dr. Rondon, patient had indicated right shoulder pain that radiated across his chest and to back; unclear if cardiac vs related to his bone mets. Discussed with Dr. Sen. STAT echo ordered per Dr. Sen's request. Cardiology consult placed. Dr. Rondon updated on Dr. Sen's plan to obtain echo and to see patient for surgic al clearance. 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 Known from prior CT imagining last year. Patient reports Dr. Soni had arranged for PET scan that was cancelled in November r/t COVID. Has not had any further work up. Patient reports remote tobacco use. Heme/Onc is consulted for assistance. (4) Metastasis Qualifiers: Area of secondary neoplastic involvement: bone Qualified Code(s): C79.51 - Secondary malignant neoplasm of bone Is this a current diagnosis for this admission?: Yes Plan: As above. (5) HAIDER (obstructive sleep apnea) Is this a current diagnosis for this admission?: Yes Plan: Supplemental oxygen as needed to maintain sats >89% BiPAP qHS and prn sleep - Time Time Spent with patient: 35 or more minutes Medications reviewed and adjusted accordingly: Yes - Inpatient Certification Based on my medical assessment, after consideration of the patient's comorbidities, presenting symptoms, or acuity I expect that the services needed warrant INPATIENT care.: Yes I certify that my determination is in accordance with my understanding of Medicare's requirements for reasonable and necessary INPATIENT services [42 CFR 412.3e].: Yes Medical Necessity: Significant Comorbidiites Make Outpatient Treatment Too Risky, Need Close Monitoring Due to Risk of Patient Decompensation, Need For IV Fluids, Need For Continuous Telemetry Monitoring, Need for Pain Control, Need for IV Antibiotics, Need for Surgery
--- NOTE | 2020-02-21 19:39 | PDOC CONSULTATION ---
Consultation-Blank Consultation: CARDIOLOGY consultation by Dr. Paris Vargas on 02/21/2020. Patient seen at 6:45 PM. 60 minutes spent with patient with more than 50% of time spent in direct patient care. CONSULT REQUESTING PHYSICIAN: Surgicalist , . REASON FOR CONSULTATION: Patient needing urgent surgery for acute appendicitis/ sepsis with elevated troponin levels. Hence preoperative cardiac risk assessment. PRELIMINARY CARDIOLOGY NOTE: Patient examined. After interviewing the patient. Formal consult to follow IMPRESSION/RECOMMENDATION: 1. Elevated troponin I secondary to supply demand mismatch. This is due to the patient's acute appendicitis. No evidence of acute coronary syndrome or non-ST elevation MD. 2. Acute appendicitis. For surgical treatment approach. 3. No evidence of acute coronary syndrome. The patient has no anginal symptoms. The patient on 10/25/2019 has had a negative Cardiolite stress test. Also he has no known history of coronary artery disease. 4. Proximal atrial fibrillation: Status post ablation with no recurrence of atrial fibrillation. Note that the patient is implantable loop monitor/recorder as per Dr. Adithya Castle his EP fundraising coordinator shows no events since 2018. 5. Hypertension: 6. Hyperlipidemia. 7. COPD: Without exacerbation. 8. Most likely lung cancer with bony mets. This needs to be worked up later. 9. Prior history of cardiomyopathy. The patient's echo in September 2019 showed LV ejection fraction 65 to 70%. 10. Preoperative cardiac risk assessment The patient had an echocardiogram done as a stat order and I was there at the bedside when the echo was done. This shows no wall motion normality and normal LV ejection fraction. There is no significant valvular disease. Hence I am fully convinced that the patient's troponin I leak is secondary to supply demand mismatch [type II myocardial infarction and not a non-ST patient MD.] THE PATIENT WILL BE ACCEPTABLE /LOW CARDIAC RISK FOR THIS SURGICAL PROCEDURE. Discussed with the surgicalist, and and the anesthesiologist. Postop would recommend observing the patient for recurrence of atrial fibrillation. Would strongly advise against trending troponins unless there are EKG changes or if the patient is typical or atypical anginal symptoms. Will follow. HISTORY OF PRESENT ILLNESS: Patient is a 69-year-old male with a known history of hypertension, hyperlipidemia, and history of atrial flutter fibrillation status post ablation with no recurrence. The patient has a im plantable loop recorder and on discussion with his EP fundraising coordinator who implanted the loop recorder there has been no recurrence of any arrhythmic events including atrial fibrillation since 2018. The patient has no known history of coronary artery disease. The patient admitted with right lower quadrant pain since Thursday. Patient started getting worse. He has been having nausea but no vomiting. There is no GI bleed. The patient be diagnosed with acute appendicitis. The patient also has a history of pulmonary lung nodule. This is increased in size in the recent CT scanning. The patient was supposedly to have a PET scan and November 2019, but due to the COVID pandemic this was not done. Now there are some osseous lesions suggestive of metastatic disease. The patient denies any chest pain or discomfort. He does have left shoulder pain which is reproducible by movements of the patient's shoulder consistent with arthritis pain. His EKG does not show any acute changes, but his troponin is elevated at 1.17. This is most likely secondary to supply demand mismatch consistent with a type II myocardial infarction and not a non-ST elevation MD. There is no clinical evidence of acute coronary artery disease. Hence we will let the patient have surgery. As discussed with the surgical hist. Please see impression/recommendation. The patient denies any recent palpitations. There is no wheezing or cough and his COPD is stable. He has dyspnea on exertion with more than mild exertion, but the patient is obese, deconditioned and has COPD. He has no palpitations PND orthopnea or typical or atypical anginal symptoms. There is no syncope. There is no leg edema. There is no symptoms consistent with or suggestive of heart failure. The patient had an echocardiogram in September 2019 which showed normal LV ejection fraction and no evidence of pulmonary hypertension. There is no significant valvular disease. The patient had a IV Lexiscan Cardiolite stress test in October 2019 which showed no reversible ischemia and no evidence of MD or scar. Past Medical History Cardiac Medical History: Reports: Atrial Fibrillation, Congestive Heart Failure, Hyperlipidema, Hypertension Pulmonary Medical History: Reports: Chronic Obstructive Pulmonary Disease (COPD), Sleep Apnea - Patient uses a BiPAP at night. Denies: Tuberculosis EENT Medical History: Reports: None Neurological Medical History: Reports: None Endocrine Medical History: Reports: Obesity Denies: Diabetes Mellitus Type 2, Hypothyroidism Renal/ Medical History: Reports: None Malignancy Medical History: Reports: Other - new Dx lung nodules w/ bone mets GI Medical History: Reports: Gastroesophageal Reflux Disease Skin Medical History: Reports: None Psychiatric Medical History: Reports: None Traumatic Medical History: Reports: None Hematology: Reports: None Infectious Medical History: Reports: None. RESUSCITATION STATUS: The patient is a full code. His is his surrogate healthcare decision maker. Past Surgical History Past Surgical History: Reports: Cardiac Catheterization -Atrial Fibrillation ablation February 2014, Cholecystectomy - Cholecystectomy complicated requiring liver resection. Implantable loop recorder implanted in the past. Social History Information Source: Patient Lives with: Family Smoking Status: Former Smoker Frequency of Alcohol Use: None Hx Recreational Drug Use: No Hx Prescription Drug Abuse: No - Advance Directive Resuscitation Status: Full Code Surrogate healthcare decision maker:: Patient's , Katja Diaz Family History Family History: Reviewed & Not Pertinent Parental Family History Reviewed: Yes Children Family History Reviewed: Yes Sibling(s) Family History Reviewed.: Yes Medication/Allergy Home Medications: Furosemide [Lasix 40 mg Tablet] 40 mg PO QAM #30 tablet 06/20/13 Lisinopril [Prinivil 10 mg Tablet] 10 mg PO DAILY #30 tablet 06/20/13 Spironolactone 25 mg PO DAILY #30 tablet 06/20/13 Carvedilol [Coreg 12.5 mg Tablet] 12.5 mg PO Q12 10/30/14 Montelukast Sodium [Singulair 10 mg Tablet] 10 mg PO QHS #30 tablet 11/03/14 Aspirin [Ecotrin 81 mg EC Tablet] 81 mg PO DAILY 02/21/20 Atorvastatin Calcium [Lipitor 20 mg Tablet] 20 mg PO QHS 02/21/20 Cyanocobalamin (Vitamin B-12) [Vitamin B-12 1000 Mcg Tablet] 2,000 mcg PO BID 02/21/20 Diclofenac Sodium 2 gm TOP QIDP PRN 02/21/20 Docusate Sodium [Colace 100 mg Capsule] 100 mg PO DAILY 02/21/20 Flecainide Acetate [Tambocor 100 mg Tablet] 100 mg PO DAILY 02/21/20 Hydrocodone/Acetaminophen [[place]ora 5-325 mg Tablet] 1 tab PO Q6HP PRN MDD filled 02/16 for 5 day supply 02/21/20 [place]-3 Fatty Acids/Fish Oil [[place] 3 Fish Oil Softgel] 1 each PO BID 02/21/20 Tizanidine HCl 4 mg PO Q8HP PRN 02/21/20 Allergies/Adverse Reactions: Penicillins Allergy (Severe, Verified 06/16/13 08:53) Anaphylaxis Tetanus Vaccines and Toxoid [Tetanus] Allergy (Severe, Verified 06/16/13 08:53) Anaphylaxis Current Medications Generic Name Dose Route Start Last Admin Trade Name Freq PRN Reason Stop Dose Admin Acetaminophen 650 mg 02/21/20 16:33 Tylenol 325 Mg Tablet PO 03/22/20 16:32 Q4HP PRN FOR PAIN OR TEMP Acetaminophen 650 mg 02/21/20 16:33 Tylenol 650 Mg Supp [place] 03/22/20 16:32 Q4HP PRN Fever >101; if not taking p.o. Al Hydrox/Mg Hydrox/Simethicone 30 ml 02/21/20 18:12 Maalox Plus Susp 30 Udcup PO 03/22/20 18:11 Q6HP PRN HEARTBURN Albuterol 2.5 mg 02/21/20 16:31 Ventolin 0.083% Neb 2.5 Mg/3 Ml Ampul NEB 03/22/20 16:30 RTQ6HP PRN Shortness Of Breath/wheeze Atorvastatin Calcium 20 mg 02/21/20 22:00 Lipitor 20 Mg Tablet PO 03/22/20 21:59 QHS [facility] Carvedilol 12.5 mg 02/21/20 22:00 Coreg 12.5 Mg Tablet PO 03/22/20 21:59 Q12 [facility] Flecainide Acetate 100 mg 02/22/20 10:00 Tambocor 100 Mg Tablet PO 03/23/20 09:59 DAILY [facility] Heparin Sodium (Porcine) 5,000 unit 02/21/20 22:00 Heparin Inj 5,000 Units/Ml 1 Ml Vial SUBCUT 03/22/20 21:59 Q8 [facility] Hydralazine HCl 10 mg 02/21/20 16:34 Apresoline Inj/Pf 20 Mg/1 Ml Sdv IV 03/22/20 16:33 Q6HP PRN SBP>180, DBP>100 Sodium Chloride 1,000 mls @ 100 mls/hr 02/21/20 18:12 Nacl 0.9% 1000 Ml Iv Soln IV 03/22/20 18:11 CONTINUOUS PRN THIS MED IS NOT "PRN" Metronidazole 500 mg in 100 mls @ 100 mls/hr 02/22/20 00:00 Flagyl Rtu 500 Mg/Ns 100ml Premix IV 02/29/20 00:00 Q6 [facility] Levofloxacin/Dextrose 750 mg in 150 mls @ 100 mls/hr 02/22/20 10:00 Levaquin Rtu 750 Mg/D5w 150 Ml Premix IV 02/29/20 09:59 DAILY [facility] Lisinopril 10 mg 02/22/20 10:00 Prinivil 10 Mg Tablet PO 03/23/20 09:59 DAILY [facility] Magnesium Hydroxide 30 ml 02/21/20 18:12 Milk Of Magnesia 30 Ml Udcup PO 03/22/20 18:11 HSP PRN FOR CONSTIPATION Montelukast Sodium 10 mg 02/21/20 22:00 Singulair 10 Mg Tablet PO 03/22/20 21:59 QHS [facility] Morphine Sulfate 2 mg 02/21/20 18:22 Morphine 10 Mg/Ml Inj IV 02/28/20 18:21 Q4HP PRN FOR PAIN Pantoprazole Sodium 40 mg 02/21/20 22:00 Protonix Iv Inj 40 Mg Vial IV 02/24/20 21:59 Q12 [facility] Promethazine HCl 6.25 mg 02/21/20 18:12 Phenergan Inj 25 Mg/1 Ml Vial IV 03/22/20 18:11 Q4HP PRN FOR NAUSEA/VOMITING Spironolactone 25 mg 02/22/20 10:00 Aldactone 25 Mg Tablet PO 03/23/20 09:59 DAILY [facility] Tizanidine HCl 4 mg 02/21/20 18:01 Zanaflex 4 Mg Tablet PO 03/22/20 18:00 Q8HP PRN MUSCLE SPASMS Discontinued Medications Generic Name Dose Route Start Last Admin Trade Name Freq PRN Reason Stop Dose Admin Albuterol/Ipratropium 3 ml 02/21/20 16:45 02/21/20 16:50 Duoneb 3 Ml Ampul NEB 02/21/20 16:46 3 ml RTNOW ONE Administration Bupivacaine HCl Confirm 02/21/20 17:06 02/21/20 20:23 Sensorcaine-Mpf 0.25% Inj 30 Ml Sdv Administered 02/21/20 17:07 30 ml Dose Administration 30 ml .ROUTE .STK-MED ONE Diphenhydramine HCl 12.5 mg 02/21/20 20:15 Benadryl Inj 50 Mg/1 Ml Vial IV 02/21/20 23:15 .WHILE IN PACU PRN ITCHING Fentanyl Citrate 25 mcg 02/21/20 20:15 Sublimaze Inj/Pf 100 Mcg/2 Ml Ampule IV 02/21/20 23:15 .WHILE IN PACU PRN PAIN SCALE 2-3 Fentanyl Citrate 12.5 mcg 02/21/20 20:15 Sublimaze Inj/Pf 100 Mcg/2 Ml Ampule IV 02/21/20 23:15 .WHILE IN PACU PRN PAIN SCALE OF 1 Fentanyl Citrate 50 mcg 02/21/20 20:15 Sublimaze Inj/Pf 100 Mcg/2 Ml Ampule IV 02/21/20 23:15 .WHILE IN PACU PRN PAIN SCALE 4-5 Hydromorphone HCl Confirm 02/21/20 17:47 Dilaudid Inj/Pf 2 Mg/Ml Ampule Administered 02/21/20 17:48 Dose 2 mg .ROUTE .STK-MED ONE Lactated Ringer's 3,310 mls @ 827.5 mls/hr 02/21/20 12:35 02/21/20 16:40 Lactated Ringers 1000 Ml Iv Soln 30 ml/kg infuse over 4 hr (3310 ml) 02/21/20 16:34 0 mls/hr IV Infusion BOLUS ONE Levofloxacin/Dextrose 750 mg in 150 mls @ 100 mls/hr 02/21/20 12:35 02/21/20 15:06 Levaquin Rtu 750 Mg/D5w 150 Ml Premix IV 02/21/20 14:04 150 ml/hr NOW ONE 150 mls/hr Administration Metronidazole 500 mg in 100 mls @ 100 mls/hr 02/21/20 15:24 02/21/20 17:14 Flagyl Rtu 500 Mg/Ns 100ml Premix IV 02/21/20 16:23 100 mls/hr NOW ONE 100 mls/hr Administration Midazolam HCl Confirm 02/21/20 23:19 Versed Rtu 50 Mg/100 Ml Premix Bag Administered 02/21/20 23:20 Dose 50 mg in 100 mls @ ud .ROUTE .STK-MED ONE Meperidine HCl 12.5 mg 02/21/20 20:15 Demerol Inj 25 Mg/1 Ml Syringe IV 02/21/20 23:15 .WHILE IN PACU PRN Shivering Midazolam HCl Confirm 02/21/20 17:47 Versed 2 Mg/2 Ml Inj Administered 02/21/20 17:48 Dose 2 mg .ROUTE .STK-MED ONE Midazolam HCl Confirm 02/21/20 22:44 Versed 2 Mg/2 Ml Inj Administered 02/21/20 22:45 Dose 2 mg .ROUTE .STK-MED ONE Morphine Sulfate 2 mg 02/21/20 16:28 02/21/20 16:49 Morphine 10 Mg/Ml Inj IV 02/21/20 16:29 2 mg NOW ONE Administration Ondansetron HCl 4 mg 02/21/20 20:15 Zofran Inj/Pf 4 Mg/2 Ml Sdv IV 02/21/20 23:16 .WHILE IN PACU PRN NAUSEA AND VOMITING Oxycodone/Acetaminophen 1 tab 02/21/20 20:15 Percocet 5-325 Mg Tablet PO 02/21/20 23:15 .WHILE IN PACU PRN PAIN SCALE 1-2 Oxycodone/Acetaminophen 2 tab 02/21/20 20:15 Percocet 5-325 Mg Tablet PO 02/21/20 23:15 .WHILE IN PACU PRN PAIN SCALE 3 OR GREATER Promethazine HCl 12.5 mg 02/21/20 20:15 Phenergan Inj 25 Mg/1 Ml Vial IV 02/21/20 23:15 .WHILE IN PACU PRN NAUSEA AND VOMITING Promethazine HCl 25 mg 02/21/20 20:15 Phenergan Inj 25 Mg/1 Ml Vial IV 02/21/20 23:15 .WHILE IN PACU PRN NAUSEA AND VOMITING Propofol Confirm 02/21/20 17:47 Diprivan Inj 200 Mg/20 Ml Vial Administered 02/21/20 17:48 Dose 200 mg IV .STK-MED ONE Review of Systems Constitutional: PRESENT: anorexia, fatigue, fever(s). ABSENT: chills, headache(s), weight gain, weight loss Eyes: ABSENT: visual disturbances Ears: ABSENT: hearing changes Cardiovascular: ABSENT: chest pain, dyspnea on exertion, edema, orthropnea, palpitations Respiratory: ABSENT: cough, hemoptysis Gastrointestinal: PRESENT: as per HPI, abdominal pain, nausea. ABSENT: constipation, diarrhea, hematemesis, hematochezia, vomiting Genitourinary: ABSENT: dysuria, hematuria Musculoskeletal: PRESENT: back pain. ABSENT: joint swelling Integumentary: ABSENT: rash, wounds Neurological: ABSENT: abnormal gait, abnormal speech, confusion, dizziness, focal weakness, syncope Psychiatric: ABSENT: anxiety, depression, homidical ideation, suicidal ideation Endocrine: ABSENT: cold intolerance, heat intolerance, polydipsia, polyuria Hematologic/Lymphatic: ABSENT: easy bleeding, easy bruising. PHYSICAL EXAMINATION: The patient is moderate to morbidly obese. At present in mild distress due to right lower quadrant pain. Selected Entries 02/21/20 02/21/20 02/21/20 17:00 17:40 17:48 Temperature 99.1 F 99.1 F Temperature Oral Source Pulse Rate 100 Heart Rate ( 101 Monitors) Respiratory 16 24 H Rate Blood Pressure 136/102 H [Right Upper Arm] O2 Sat by Pulse 98 98 Oximetry Oxygen Flow 2 Rate HEAD: Is atraumatic normocephalic. EYES: Pupils are equal round regular reactive light accommodation. Extraocular movements are normal. There is no conjunctival pallor. There is no scleral icterus. EARS: Tympanic membranes are intact. External auditory canals are clear. NOSE: There is no deviated nasal septum. There is no inflammation of the nasal mucous membrane. MOUTH: Mucous membranes of mouth are slightly dry. Tongue is dry. There is no bleeding from the gums. THROAT: There is no redness of the oropharynx. There is no exudates. SKIN: There is no skin rashes. There is no skin lesions. There is no miguel- care ecchymosis. NECK: Is supple. There is no JVD. Carotids are equal there is no bruits. There is no lymphadenopathy. There is no goiter. There is no accessory muscle respiration use. LUNGS: There is diminished air entry prolonged expiration. There is no rhonchi rales or wheezing. On percussion there is hyperresonance. HEART: S1-S2 is heard. There is no S3 gallop there is no S4 gallop. There is systolic murmur left sternal border and the apex. There is no rub. ABDOMEN: Is obese. There is tenderness in the right lower quadrant. Bowel sounds well heard. There is no rebound guarding or rigidity. EXTREMITIES femorals are diminished there is no femoral bruits. Leg pulses are diminished. There is no pedal edema. There is no DVT or cellulitis. There is no calf tenderness. There is no cyanosis or clubbing. FRANCHISE SALES MANAGER: The patient is conscious awake alert oriented x3 with no focal deficit. PSYCHIATRIC: The patient judgment insight are intact his affect is normal. Labs- Entire Visit 02/21/20 02/21/20 02/21/20 12:39 12:39 12:39 WBC 20.4 H RBC 3.58 L Hgb 11.4 L Hct 34.0 L MCV 95 MCH 31.7 MCHC 33.4 RDW 13.3 Plt Count 200 Lymph % (Auto) Not Reportable [place] % (Auto) Not Reportable Eos % (Auto) Not Reportable Baso % (Auto) Not Reportable Absolute Neuts (auto) Not Reportable Absolute Lymphs (auto) Not Reportable Absolute Monos (auto) Not Reportable Absolute Eos (auto) Not Reportable Absolute Basos (auto) Not Reportable Total Counted 100 Seg Neutrophils % Not Reportable Seg Neuts % (Manual) 89 H Band Neutrophils % 1 L Lymphocytes % (Manual) 7 L Monocytes % (Manual) 3 Eosinophils % (Manual) 0 Basophils % (Manual) 0 Abs Neuts (Manual) 18.4 H Abs Lymphs (Manual) 1.4 Abs Monocytes (Manual) 0.6 Absolute Eos (Manual) 0.0 Abs Basophils (Manual) 0.0 Large Platelets PRESENT Platelet Comment ADEQUATE Ovalocytes RBC Morph Comment NORMO-CYTIC/CHROMIC PT 15.5 H INR 1.22 VBG pH VBG pCO2 VBG HCO3 VBG Base Excess Sodium 132.8 L Potassium 3.8 Chloride 100 Carbon Dioxide 23 Anion Gap 10 BUN 20 Creatinine 0.86 Est GFR ( Amer) > 60 Est GFR (MDRD) Non-Af > 60 Glucose 111 H Lactic Acid Calcium 10.9 H Total Bilirubin 1.7 H Direct Bilirubin 0.4 Neonat Total Bilirubin Not Reportable Neonat Direct Bilirubin Not Reportable Neonat Indirect Bili Not Reportable AST 27 ALT 26 Alkaline Phosphatase 213 H CK-MB (CK-2) Troponin I Total Protein 7.1 Albumin 3.9 Urine Color Urine Appearance Urine pH Ur Specific [place] Urine Protein Urine Glucose (UA) Urine Ketones Urine Blood Urine Nitrite Urine Bilirubin Urine Urobilinogen Ur Leukocyte Esterase Urine WBC (Auto) Urine RBC (Auto) Urine Mucus (Auto) Urine Ascorbic Acid SARS-CoV-2 (PCR) 02/21/20 02/21/20 02/21/20 12:39 12:39 14:38 WBC RBC Hgb Hct MCV MCH MCHC RDW Plt Count Lymph % (Auto) [place] % (Auto) Eos % (Auto) Baso % (Auto) Absolute Neuts (auto) Absolute Lymphs (auto) Absolute Monos (auto) Absolute Eos (auto) Absolute Basos (auto) Total Counted Seg Neutrophils % Seg Neuts % (Manual) Band Neutrophils % Lymphocytes % (Manual) Monocytes % (Manual) Eosinophils % (Manual) Basophils % (Manual) Abs Neuts (Manual) Abs Lymphs (Manual) Abs Monocytes (Manual) Absolute Eos (Manual) Abs Basophils (Manual) Large Platelets Platelet Comment Ovalocytes RBC Morph Comment PT INR VBG pH 7.48 H VBG pCO2 29.6 L VBG HCO3 21.7 VBG Base Excess -0.8 Sodium Potassium Chloride Carbon Dioxide Anion Gap BUN Creatinine Est GFR ( Amer) Est GFR (MDRD) Non-Af Glucose Lactic Acid 0.7 1.0 Calcium Total Bilirubin Direct Bilirubin Neonat Total Bilirubin Neonat Direct Bilirubin Neonat Indirect Bili AST ALT Alkaline Phosphatase CK-MB (CK-2) Troponin I Total Protein Albumin Urine Color Urine Appearance Urine pH Ur Specific [place] Urine Protein Urine Glucose (UA) Urine Ketones Urine Blood Urine Nitrite Urine Bilirubin Urine Urobilinogen Ur Leukocyte Esterase Urine WBC (Auto) Urine RBC (Auto) Urine Mucus (Auto) Urine Ascorbic Acid SARS-CoV-2 (PCR) 02/21/20 02/21/20 02/21/20 14:40 16:15 16:58 WBC 20.5 H RBC 3.39 L Hgb 10.8 L Hct 32.2 L MCV 95 MCH 31.8 MCHC 33.4 RDW 13.6 Plt Count 188 Lymph % (Auto) Not Reportable [place] % (Auto) Not Reportable Eos % (Auto) Not Reportable Baso % (Auto) Not Reportable Absolute Neuts (auto) Not Reportable Absolute Lymphs (auto) Not Reportable Absolute Monos (auto) Not Reportable Absolute Eos (auto) Not Reportable Absolute Basos (auto) Not Reportable Total Counted 100 Seg Neutrophils % Not Reportable Seg Neuts % (Manual) 83 H Band Neutrophils % Lymphocytes % (Manual) 6 L Monocytes % (Manual) 11 Eosinophils % (Manual) 0 Basophils % (Manual) 0 Abs Neuts (Manual) 17.0 H Abs Lymphs (Manual) 1.2 Abs Monocytes (Manual) 2.3 H Absolute Eos (Manual) 0.0 Abs Basophils (Manual) 0.0 Large Platelets Platelet Comment ADEQUATE Ovalocytes SLIGHT RBC Morph Comment PT INR VBG pH VBG pCO2 VBG HCO3 VBG Base Excess Sodium Potassium Chloride Carbon Dioxide Anion Gap BUN Creatinine Est GFR ( Amer) Est GFR (MDRD) Non-Af Glucose Lactic Acid Calcium Total Bilirubin Direct Bilirubin Neonat Total Bilirubin Neonat Direct Bilirubin Neonat Indirect Bili AST ALT Alkaline Phosphatase CK-MB (CK-2) Troponin I 1.170 Total Protein Albumin Urine Color YELLOW Urine Appearance SLIGHTLY-CLOUDY Urine pH 5.0 Ur Specific [place] 1.013 Urine Protein NEGATIVE Urine Glucose (UA) NEGATIVE Urine Ketones NEGATIVE Urine Blood MODERATE H Urine Nitrite NEGATIVE Urine Bilirubin NEGATIVE Urine Urobilinogen NEGATIVE Ur Leukocyte Esterase NEGATIVE Urine WBC (Auto) 1 Urine RBC (Auto) 2 Urine Mucus (Auto) RARE Urine Ascorbic Acid NEGATIVE SARS-CoV-2 (PCR) 02/21/20 02/21/20 02/21/20 16:58 17:39 19:29 WBC RBC Hgb Hct MCV MCH MCHC RDW Plt Count Lymph % (Auto) [place] % (Auto) Eos % (Auto) Baso % (Auto) Absolute Neuts (auto) Absolute Lymphs (auto) Absolute Monos (auto) Absolute Eos (auto) Absolute Basos (auto) Total Counted Seg Neutrophils % Seg Neuts % (Manual) Band Neutrophils % Lymphocytes % (Manual) Monocytes % (Manual) Eosinophils % (Manual) Basophils % (Manual) Abs Neuts (Manual) Abs Lymphs (Manual) Abs Monocytes (Manual) Absolute Eos (Manual) Abs Basophils (Manual) Large Platelets Platelet Comment Ovalocytes RBC Morph Comment PT INR VBG pH VBG pCO2 VBG HCO3 VBG Base Excess Sodium 132.7 L Potassium 3.8 Chloride 100 Carbon Dioxide 24 Anion Gap 9 BUN 20 Creatinine 0.90 Est GFR ( Amer) > 60 Est GFR (MDRD) Non-Af > 60 Glucose 111 H Lactic Acid 1.0 Calcium 10.6 H Total Bilirubin Direct Bilirubin Neonat Total Bilirubin Neonat Direct Bilirubin Neonat Indirect Bili AST ALT Alkaline Phosphatase CK-MB (CK-2) Troponin I Total Protein Albumin Urine Color Urine Appearance Urine pH Ur Specific [place] Urine Protein Urine Glucose (UA) Urine Ketones Urine Blood Urine Nitrite Urine Bilirubin Urine Urobilinogen Ur Leukocyte Esterase Urine WBC (Auto) Urine RBC (Auto) Urine Mucus (Auto) Urine Ascorbic Acid SARS-CoV-2 (PCR) NEGATIVE 02/21/20 19:29 WBC RBC Hgb Hct MCV MCH MCHC RDW Plt Count Lymph % (Auto) [place] % (Auto) Eos % (Auto) Baso % (Auto) Absolute Neuts (auto) Absolute Lymphs (auto) Absolute Monos (auto) Absolute Eos (auto) Absolute Basos (auto) Total Counted Seg Neutrophils % Seg Neuts % (Manual) Band Neutrophils % Lymphocytes % (Manual) Monocytes % (Manual) Eosinophils % (Manual) Basophils % (Manual) Abs Neuts (Manual) Abs Lymphs (Manual) Abs Monocytes (Manual) Absolute Eos (Manual) Abs Basophils (Manual) Large Platelets Platelet Comment Ovalocytes RBC Morph Comment PT INR VBG pH VBG pCO2 VBG HCO3 VBG Base Excess Sodium Potassium Chloride Carbon Dioxide Anion Gap BUN Creatinine Est GFR ( Amer) Est GFR (MDRD) Non-Af Glucose Lactic Acid Calcium Total Bilirubin Direct Bilirubin Neonat Total Bilirubin Neonat Direct Bilirubin Neonat Indirect Bili AST ALT Alkaline Phosphatase CK-MB (CK-2) 1.34 Troponin I 0.926 Total Protein Albumin Urine Color Urine Appearance Urine pH Ur Specific [place] Urine Protein Urine Glucose (UA) Urine Ketones Urine Blood Urine Nitrite Urine Bilirubin Urine Urobilinogen Ur Leukocyte Esterase Urine WBC (Auto) Urine RBC (Auto) Urine Mucus (Auto) Urine Ascorbic Acid SARS-CoV-2 (PCR) Abdomen/Pelvis CT 02/21/20 14:37 IMPRESSION: 1. Increased size of the right lower lobe pulmonary nodule measuring 2.1 cm, previously 1.6 cm. Malignancy is highy suspected. PET-CT or tissue sampling should be considered 2. Dilated appendix with significant pericecal inflammatory change compatible with acute appendicitis. No focal drainable collection. Recommend surgical consultation. 3. Innumerable lucent osseous lesions suggestive neoplasm, likely metastatic disease versus multiple myeloma. Findings discussed with Dr. Gamble At 1519 hours on 02/21/2020. EKG: Sinus rhythm. There is nonspecific IVCD. No acute ischemia or injury. IMPRESSION and/recommendation as mentioned above. 60-minute spent as patient more than 50% time spent in direct patient care. Medical decision making is of high complexity. Will follow.
--- NOTE | 2020-02-21 19:48 | PDOC PROGRESS REPORT ---
Subjective Reason For Visit: ACUTE APPENDICITIS,METASTATIC DISEASE, Physical Exam Vital Signs: Temp Pulse Resp BP Pulse Ox 99.1 F 100 24 H 136/102 H 98 02/21/20 17:48 02/21/20 17:48 02/21/20 17:48 02/21/20 17:48 02/21/20 17:48 Intake & Output 02/20/20 02/21/20 02/22/20 06:59 06:59 06:59 Intake Total 1117 Balance 1117 Weight 110.4 kg Results Laboratory Results: 02/21/20 16:58 02/21/20 16:58 02/21/20 02/21/20 02/21/20 12:39 12:39 12:39 WBC 20.4 H RBC 3.58 L Hgb 11.4 L Hct 34.0 L MCV 95 MCH 31.7 MCHC 33.4 RDW 13.3 Plt Count 200 Seg Neutrophils % Not Reportable VBG pH 7.48 H VBG pCO2 29.6 L VBG HCO3 21.7 VBG Base Excess -0.8 Sodium 132.8 L Potassium 3.8 Chloride 100 Carbon Dioxide 23 Anion Gap 10 BUN 20 Creatinine 0.86 Est GFR ( Amer) > 60 Glucose 111 H Lactic Acid Calcium 10.9 H Total Bilirubin 1.7 H AST 27 Alkaline Phosphatase 213 H Total Protein 7.1 Albumin 3.9 Urine Color Urine Appearance Urine pH Ur Specific [place] Urine Protein Urine Glucose (UA) Urine Ketones Urine Blood Urine Nitrite Ur Leukocyte Esterase Urine WBC (Auto) Urine RBC (Auto) 02/21/20 02/21/20 02/21/20 12:39 14:38 14:40 WBC RBC Hgb Hct MCV MCH MCHC RDW Plt Count Seg Neutrophils % VBG pH VBG pCO2 VBG HCO3 VBG Base Excess Sodium Potassium Chloride Carbon Dioxide Anion Gap BUN Creatinine Est GFR ( Amer) Glucose Lactic Acid 0.7 1.0 Calcium Total Bilirubin AST Alkaline Phosphatase Total Protein Albumin Urine Color YELLOW Urine Appearance SLIGHTLY-CLOUDY Urine pH 5.0 Ur Specific [place] 1.013 Urine Protein NEGATIVE Urine Glucose (UA) NEGATIVE Urine Ketones NEGATIVE Urine Blood MODERATE H Urine Nitrite NEGATIVE Ur Leukocyte Esterase NEGATIVE Urine WBC (Auto) 1 Urine RBC (Auto) 2 02/21/20 02/21/20 16:58 16:58 WBC 20.5 H RBC 3.39 L Hgb 10.8 L Hct 32.2 L MCV 95 MCH 31.8 MCHC 33.4 RDW 13.6 Plt Count 188 Seg Neutrophils % Not Reportable VBG pH VBG pCO2 VBG HCO3 VBG Base Excess Sodium 132.7 L Potassium 3.8 Chloride 100 Carbon Dioxide 24 Anion Gap 9 BUN 20 Creatinine 0.90 Est GFR ( Amer) > 60 Glucose 111 H Lactic Acid Calcium 10.6 H Total Bilirubin AST Alkaline Phosphatase Total Protein Albumin Urine Color Urine Appearance Urine pH Ur Specific [place] Urine Protein Urine Glucose (UA) Urine Ketones Urine Blood Urine Nitrite Ur Leukocyte Esterase Urine WBC (Auto) Urine RBC (Auto) 02/21/20 16:15 Troponin I 1.170 Impressions: Abdomen/Pelvis CT 02/21/20 14:37 IMPRESSION: 1. Increased size of the right lower lobe pulmonary nodule measuring 2.1 cm, previously 1.6 cm. Malignancy is highy suspected. PET-CT or tissue sampling should be considered 2. Dilated appendix with significant pericecal inflammatory change compatible with acute appendicitis. No focal drainable collection. Recommend surgical consultation. 3. Innumerable lucent osseous lesions suggestive neoplasm, likely metastatic disease versus multiple myeloma. Findings discussed with Dr. Gamble At 1519 hours on 02/21/2020. Assessment & Plan - Diagnosis (1) Appendicitis Qualifiers: Appendicitis type: acute appendicitis Acute appendicitis type: with localized peritonitis Appendicitis gangrene presence: unspecified whether gangrene present Appendicitis perforation presence: without perforation Appendicitis abscess presence: unspecified whether abscess present Qualified Code(s): K35.30 - Acute appendicitis with localized peritonitis, without perforation or gangrene Is this a current diagnosis for this admission?: Yes (2) Lung nodules Is this a current diagnosis for this admission?: Yes (3) Elevated troponin Is this a current diagnosis for this admission?: Yes Plan: Although EKG did not demonstrate acute ischemic changes, his troponin was elevated. Therefore cardiology was consulted. I have discussed this case with Dr. Vargas (cardiology) who feels that the elevated troponin is related with his sepsis and not due to an acute cardiac event. Patient has undergone an echo and he feels that his ejection fraction is preserved and that we can safely pro ceed with surgery. Therefore we will proceed.
[2020-02-21 20:05] LABS: CREATINE KINASE MB 1.34 ng/mL (<4.55); TROPONIN I 0.926 ng/mL
--- NOTE | 2020-02-21 20:07 | EKG REPORT ---
SEVERITY:- ABNORMAL ECG - SINUS RHYTHM NONSPECIFIC INTRAVENTRICULAR CONDUCTION DELAY CONSIDER POSTERIOR INFARCT : Confirmed by: Willie Thompson MD 21-Feb-2020 20:06:31
[2020-02-21] MEDS ORDERED: OXYCODONE-ACETAMINOPHEN 5-325 MG TABLET PO PRN ×2 (20:15)
[2020-02-21] MEDS ORDERED: MEPERIDINE HCL/PF INJ 25 MG/1 ML DISP.SYRIN IV PRN (20:15)
[2020-02-21] MEDS ORDERED: ONDANSETRON HCL INJ/PF 4 MG/2 ML SDV IV PRN (20:15)
[2020-02-21] MEDS ORDERED: DIPHENHYDRAMINE HCL 50 MG/ML VIAL IV PRN (20:15)
[2020-02-21] MEDS ORDERED: FENTANYL CITRATE INJ/PF 100 MCG/2 ML AMPUL IV PRN ×3 (20:15)
[2020-02-21] MEDS ORDERED: HEPARIN SOD (PORCINE) 5,000 UNIT/ML 1 ML VIAL SUBCUT SCH (22:00)
--- NOTE | 2020-02-21 23:07 | XCELERA REPORT ---
[address] [address] Transthoracic Echocardiogram Report Name: EDINSON BLOCK Age: 69 yrs Gender: Male : 1950 Patient Status: Inpatient Patient Location: [place] [address]^A Study Date: 02/21/2020 07:20 PM Height: 67 in Weight: 243 lb BSA: 2.2 m2 Procedure: A two-dimensional transthoracic echocardiogram with color flow and Doppler was performed. Study Quality: Poor. Reason For Study: elevated troponin History: elevated troponin / PRE-OP. Ordering Physician: BRAYDON REYES Performed By: Yoselin Jean Interpretation Summary The left ventricle is normal in size. There is normal left ventricular wall thickness. LV EF is > THAN 65% Left ventricular systolic function is normal. Doppler measurements suggest normal left ventricular diastolic function The left ventricular wall motion is normal. There is no thrombus. The right ventricle is not well visualized secondary to technical limitations Right atrium not well visualized secondary to technical limitations The left atrium is moderately dilated. PROBABLY NO ASD ,VSD,OR PFO SEEN There is no evidence of mitral valve prolapse. There is no vegetation seen on the mitral valve. There is no mitral valve stenosis. There is a trace amount of mitral regurgitation There is no aortic valvular vegetation. There is no aortic valve stenosis There is aortic sclerosis without aortic stenosis. There is no LVOT obstruction. No aortic regurgitation is present. There is no tricuspid stenosis. There is a trace amount of tricuspid regurgitation Tricuspid regurgitation jet envelope not well defined to measure RV systolic pressure accurately. The pulmonic valve is not well visualized. The aortic root is not well visualized but is probably normal size. MMode/2D Measurements & Calculations RVDd: 2.8 cm LVIDd: 0.90 cm FS: -459.4 % Ao root diam: 3.6 cm IVSd: 0.95 cm LVIDs: 5.0 cm EDV(Teich): 1.5 ml Ao root area: 10.1 cm2 LVPWd: 0.96 cm ESV(Teich): 120.3 ml LA dimension: 5.4 cm EF(Teich): -7669 % Doppler Measurements & Calculations MV E max camille: MV P1/2t max camille: Ao V2 max: LV V1 max P.7 cm/sec 105.2 cm/sec 140.9 cm/sec 5.1 mmHg MV A max camille: MV P1/2t: 72.7 msec Ao max PG: LV V1 max: 77.0 cm/sec MVA(P1/2t): 3.0 cm2 7.9 mmHg 112.5 cm/sec MV E/A: 1.3 MV dec slope: 424.1 cm/sec2 MV dec time: 0.19 sec PA V2 max: MV P1/2t-pr_phl: 92.7 cm/sec 72.7 msec PA max P.4 mmHg Left Ventricle The left ventricle is normal in size. There is normal left ventricular wall thickness. LV EF is > THAN 65%. Left ventricular systolic function is normal. Doppler measurements suggest normal left ventricular diastolic function. The left ventricular wall motion is normal. There is no thrombus. Right Ventricle The right ventricle is not well visualized secondary to technical limitations. Atria Right atrium not well visualized secondary to technical limitations. The left atrium is moderately dilated. PROBABLY NO ASD ,VSD,OR PFO SEEN. Mitral Valve There is no evidence of mitral valve prolapse. There is no vegetation seen on the mitral valve. There is no mitral valve stenosis. There is a trace amount of mitral regurgitation. Aortic Valve There is no aortic valvular vegetation. There is no aortic valve stenosis. There is aortic sclerosis without aortic stenosis. There is no LVOT obstruction. No aortic regurgitation is present. Tricuspid Valve There is no tricuspid stenosis. There is a trace amount of tricuspid regurgitation. Tricuspid regurgitation jet envelope not well defined to measure RV systolic pressure accurately. Pulmonic Valve The pulmonic valve is not well visualized. Great Vessels The aortic root is not well visualized but is probably normal size. The inferior vena cava appeared dilated and decreased < 50% with respiration (RAP 15-20 mmHg). Effusions There is no pericardial effusion. : BRAYDON RYEES Lakshmi
[2020-02-21] MEDS ORDERED: MIDAZOLAM HCL 50 MG/100 ML RTUINJ ONE (23:19)
--- NOTE | 2020-02-21 23:34 | Operative Report ---
Operative Report DATE OF SURGERY: 02/21/20 PREOPERATIVE DIAGNOSIS: Appendicitis POSTOPERATIVE DIAGNOSIS: Perforated appendicitis with phlegmon and abscess. OPERATION: Exploratory laparoscopy, hand-assisted laparoscopic cecectomy (partial right colon resection) with ileo-right colon anastomosis SURGEON: BEATRIZ ROCHA ANESTHESIA: GA TISSUE REMOVED OR ALTERED: Cecum and appendix and distal ileum COMPLICATIONS: None ESTIMATED BLOOD LOSS: 300 cc INTRAOPERATIVE FINDINGS: Appendicitis with phlegmon/abscess. PROCEDURE: Informed consent was obtained. Patient was brought to the operating room and placed on the operating table in the supine position. After satisfactory induction of general anesthesia patient's abdomen was prepped and draped in usual sterile fashion. A supraumbilical midline incision was made dissection carried down through the fascia and the peritoneal cavity was entered without difficulty. Araujo trocar was then inserted and pneumoperitoneum produced with good patient toleration. A 5 mm trocar was placed in the right lateral abdomen lateral to the rectus above the level of the umbilicus. An exploratory laparoscopy was performed it demonstrated marked inflammatory changes in the right lower quadrant with firmly adhered bowel to the anterior abdominal wall. There were dense adhesions in the upper abdomen involving the omentum and transverse colon and portion of the right colon. The bowel adhesions to the abdominal wall was gently peeled off entering a abscess cavity. The pus was sent for Gram stain and culture. After sufficient mobility had been achieved, it became very apparent that he had a phlegmon-like process with indistinct anatomy of the base of the appendix. All this area felt very rigid and firm precluding safe laparoscopic dissection. Therefore I converted the case to a hand-assisted case. A infraumbilical midline incision was made dissection carried down through the fascia and a laparoscopic hand port was inserted. Using the hand to assist with blunt as well as sharp dissection the cecum was able to be mobilized. Dissection was difficult due to the marked inflammatory process. Palpation revealed a phlegmon at the base of the appendix involving the cecum that completely precluded safe appendectomy. There was pus extruding from the proximal aspect of the appendix. The right colon was mobilized as was the terminal ileum. Due to the bulky nature of the phlegmon I could not eviscerate the cecal appendix terminal ileum confluence through the hand port incision. Therefore the HandPort incision was connected to the supraumbilical Araujo trocar site incision which allowed sufficient fascial incision to eviscerate this phlegmon confluence. The 5 mm trocar as well as the Araujo trocar was removed. The terminal ileum was divided initially few centimeters from the ileocecal junction using a URSZULA stapling device. Additional section of terminal ileum had to be taken with a URSZULA device due to the inflammatory changes of the ileal sail to facilitate the anastomosis. At the junction of the cecum to the right colon, the colon was divided using a URSZULA stapling device. The mesentery of the cecum was taken with a LigaSure device. As was the mesentery of the resected portion of the terminal ileum. The specimen was passed off the table and opened, revealing no cecal mucosal mass. There was some bleeding points in the residual mesentery that was controlled with suture ligation. The residual right colon end had a small area that appeared ischemic therefore further resection was taken using a URSZULA stapling device to pink bowel. Triphasic Doppler signals were heard at the mesentery going into the end of this residual right colon. The terminal ileum end appeared healthy as well. Bowel continuity was then created using a URSZULA stapling device forming a [id number] functional end-to-end anastomosis between the terminal ileum and the right colon. The enterotomies created to introduce the stapling device was closed with a TA stapling device. The anastomosis appeared secure. Hemostasis appeared excellent. The bowel at the anastomosis appeared pink and healthy. Sponge needle instrument counts were all correct. Omentum was draped over the anastomosis. The fascia was closed with running PDS suture. Skin was loosely closed with rajesh and packing was placed. Marcaine was injected at the operative site. Patient tolerated procedure well with no apparent complications and was taken to the ICU in stable condition.
[2020-02-21] MEDS: MIDAZOLAM HCL 50 MG/100 ML RTUINJ IV PRN (23:50)
[2020-02-21] MEDS ORDERED: GLUCAGON,HUMAN RECOMB 1 MG INJ SUBCUT PRN (23:53)
[2020-02-21] MEDS ORDERED: DEXTROSE 50%-WATER 25 GM/50 ML DISP.SYRIN IV PRN ×2 (23:53)
[2020-02-21] MEDS ORDERED: DEXTROSE 40% GEL 15 GM TUBE PO PRN ×2 (23:53)
[2020-02-22] MEDS: ATORVASTATIN CALCIUM 20 MG TABLET PO SCH ×3 (00:10→21:58)
[2020-02-22] MEDS: PANTOPRAZOLE SODIUM 40 MG VIAL IV SCH ×3 (00:10→22:05)
[2020-02-22] MEDS: CARVEDILOL 12.5 MG TABLET PO SCH ×2 (00:10→11:12)
[2020-02-22] MEDS: MONTELUKAST SODIUM 10 MG TABLET PO SCH ×3 (00:11→21:58)
[2020-02-22] MEDS: RINGERS SOLUTION,LACTATED 1,000 ML IV PRN ×3 (00:17→18:14)
[2020-02-22 00:32] LABS: HEMOGLOBIN 11.7 g/dL (13.5-17.0); MEAN CORPUSCULAR HGB CONC 33.3 g/dL (32.0-36.0); MEAN CORPUSCULAR VOLUME 96 fl (80-97); PLATELET COUNT 184 10^3/uL (150-450); RED BLOOD COUNT 3.64 10^6/uL (4.35-5.55); RED CELL DISTRIBUTION WIDTH 13.7 % (11.5-14.0); WHITE BLOOD COUNT 17.6 10^3/uL (4.0-10.5)
[2020-02-22 00:51] LABS: ALBUMIN 3.3 g/dL (3.5-5.0); ALKALINE PHOSPHATASE 182 U/L (38-126); ANION GAP 9 (5-19); ASPARTATE AMINO TRANSFERASE 27 U/L (17-59); BILIRUBIN,DIRECT 1.1 mg/dL (0.0-0.4); BILIRUBIN,TOTAL 2.1 mg/dL (0.2-1.3); BLOOD UREA NITROGEN 20 mg/dL (7-20); CALCIUM 9.9 mg/dL (8.4-10.2); CARBON DIOXIDE 22 mmol/L (22-30); CHLORIDE 104 mmol/L (98-107); GLUCOSE 127 mg/dL (75-110); POTASSIUM 4.3 mmol/L (3.6-5.0); TOTAL PROTEIN 6.3 g/dL (6.3-8.2)
--- NOTE | 2020-02-22 01:00 | PDOC PROGRESS REPORT ---
Subjective Progress Note for:: 02/22/20 Subjective:: Intubated and sedated but starting to awaken. Reason For Visit: RUPTURED APPENDIX,SEPSIS Physical Exam Vital Signs: Temp Pulse Resp BP Pulse Ox 96.8 F L 88 16 122/56 L 99 02/21/20 23:15 02/21/20 23:15 02/21/20 23:15 02/21/20 23:15 02/22/20 00:44 Intake & Output 02/20/20 02/21/20 02/22/20 06:59 06:59 06:59 Intake Total 1117 Output Total 375 Balance 742 Weight 114.2 kg Respiratory exam: PRESENT: clear to auscultation anshul Cardiovascular exam: PRESENT: RRR GI/Abdominal exam: PRESENT: other - Soft, mildly distended. Dressings intact Results Laboratory Results: 02/22/20 00:21 02/22/20 00:21 02/21/20 02/21/20 02/21/20 12:39 12:39 12:39 WBC 20.4 H RBC 3.58 L Hgb 11.4 L Hct 34.0 L MCV 95 MCH 31.7 MCHC 33.4 RDW 13.3 Plt Count 200 Seg Neutrophils % Not Reportable VBG pH 7.48 H VBG pCO2 29.6 L VBG HCO3 21.7 VBG Base Excess -0.8 Sodium 132.8 L Potassium 3.8 Chloride 100 Carbon Dioxide 23 Anion Gap 10 BUN 20 Creatinine 0.86 Est GFR ( Amer) > 60 Glucose 111 H Lactic Acid Calcium 10.9 H Total Bilirubin 1.7 H AST 27 Alkaline Phosphatase 213 H Total Protein 7.1 Albumin 3.9 Urine Color Urine Appearance Urine pH Ur Specific [place] Urine Protein Urine Glucose (UA) Urine Ketones Urine Blood Urine Nitrite Ur Leukocyte Esterase Urine WBC (Auto) Urine RBC (Auto) 02/21/20 02/21/20 02/21/20 12:39 14:38 14:40 WBC RBC Hgb Hct MCV MCH MCHC RDW Plt Count Seg Neutrophils % VBG pH VBG pCO2 VBG HCO3 VBG Base Excess Sodium Potassium Chloride Carbon Dioxide Anion Gap BUN Creatinine Est GFR ( Amer) Glucose Lactic Acid 0.7 1.0 Calcium Total Bilirubin AST Alkaline Phosphatase Total Protein Albumin Urine Color YELLOW Urine Appearance SLIGHTLY-CLOUDY Urine pH 5.0 Ur Specific [place] 1.013 Urine Protein NEGATIVE Urine Glucose (UA) NEGATIVE Urine Ketones NEGATIVE Urine Blood MODERATE H Urine Nitrite NEGATIVE Ur Leukocyte Esterase NEGATIVE Urine WBC (Auto) 1 Urine RBC (Auto) 2 02/21/20 02/21/20 02/21/20 16:58 16:58 19:29 WBC 20.5 H RBC 3.39 L Hgb 10.8 L Hct 32.2 L MCV 95 MCH 31.8 MCHC 33.4 RDW 13.6 Plt Count 188 Seg Neutrophils % Not Reportable VBG pH VBG pCO2 VBG HCO3 VBG Base Excess Sodium 132.7 L Potassium 3.8 Chloride 100 Carbon Dioxide 24 Anion Gap 9 BUN 20 Creatinine 0.90 Est GFR ( Amer) > 60 Glucose 111 H Lactic Acid 1.0 Calcium 10.6 H Total Bilirubin AST Alkaline Phosphatase Total Protein Albumin Urine Color Urine Appearance Urine pH Ur Specific [place] Urine Protein Urine Glucose (UA) Urine Ketones Urine Blood Urine Nitrite Ur Leukocyte Esterase Urine WBC (Auto) Urine RBC (Auto) 02/22/20 02/22/20 00:21 00:21 WBC 17.6 H RBC 3.64 L Hgb 11.7 L Hct 35.0 L MCV 96 MCH 32.0 MCHC 33.3 RDW 13.7 Plt Count 184 Seg Neutrophils % VBG pH VBG pCO2 VBG HCO3 VBG Base Excess Sodium 134.8 L Potassium 4.3 Chloride 104 Carbon Dioxide 22 Anion Gap 9 BUN 20 Creatinine 0.86 Est GFR ( Amer) > 60 Glucose 127 H Lactic Acid Calcium 9.9 Total Bilirubin 2.1 H AST 27 Alkaline Phosphatase 182 H Total Protein 6.3 Albumin 3.3 L Urine Color Urine Appearance Urine pH Ur Specific [place] Urine Protein Urine Glucose (UA) Urine Ketones Urine Blood Urine Nitrite Ur Leukocyte Esterase Urine WBC (Auto) Urine RBC (Auto) 02/21/20 02/21/20 02/21/20 16:15 19:29 19:29 CK-MB (CK-2) 1.34 Troponin I 1.170 0.926 NT-Pro-B Natriuret Pep 289 H Impressions: Abdomen/Pelvis CT 02/21/20 14:37 IMPRESSION: 1. Increased size of the right lower lobe pulmonary nodule measuring 2.1 cm, previously 1.6 cm. Malignancy is highy suspected. PET-CT or tissue sampling should be considered 2. Dilated appendix with significant pericecal inflammatory change compatible with acute appendicitis. No focal drainable collection. Recommend surgical consultation. 3. Innumerable lucent osseous lesions suggestive neoplasm, likely metastatic disease versus multiple myeloma. Findings discussed with Dr. Gamble At 1519 hours on 02/21/2020. Assessment & Plan - Diagnosis (1) Appendicitis Qualifiers: Appendicitis type: acute appendicitis Acute appendicitis type: with localized peritonitis Appendicitis gangrene presence: unspecified whether gangrene present Appendicitis perforation presence: with perforation Appendicitis abscess presence: with abscess Qualified Code(s): K35.33 - Acute appendicitis with perforation and localized peritonitis, with abscess Is this a current diagnosis for this admission?: Yes Plan: Appendiceal phlegmon with abscess requiring partial colon resection. Patient will require additional sedation and pain control. Possible extubation in the morning. (2) Lung nodules Is this a current diagnosis for this admission?: Yes (3) Elevated troponin Is this a current diagnosis for this admission?: Yes
[2020-02-22 01:02] LABS: CREATINE KINASE MB 1.13 ng/mL (<4.55)
[2020-02-22 01:06] LABS: TROPONIN I 0.587 ng/mL
[2020-02-22] MEDS: METRONIDAZOLE 500 MG/NS RTU 500 MG/100 ML RTUPB IV SCH ×4 (01:26→21:29)
[2020-02-22 01:27] LABS: ARTERIAL BLOOD BASE EXCESS -0.6 mmol/L; ARTERIAL BLOOD H2CO3 1.21 mmol/L (1.05-1.35); ARTERIAL BLOOD HCO3 24.2 mmol/L (20-24); ARTERIAL BLOOD O2 SATURATION 97.5 % (94-98); ARTERIAL BLOOD PCO2 40.1 mmHg (35-45); ARTERIAL BLOOD PO2 99.7 mmHg (80-100); ARTERIAL BLOOD TOTAL CO2 25.4 mmol/L (23-27)
[2020-02-22 01:29] LABS: ARTERIAL BLOOD FIO2 60%
--- NOTE | 2020-02-22 01:32 | RADIOLOGY REPORT (SQ) ---
CHEST 1 VIEW on 02/22/2020 at 12:42 AM CLINICAL INDICATION: ET tube and NG tube placement COMPARISON: 11/01/2014 FINDINGS: ET tube tip is in the midthoracic trachea approximately 6 cm above the level of the rose marie. NG tube extends into the upper body of the stomach. Heart is upper limits normal for size. Minimal bibasilar atelectasis is noted. The lungs are otherwise clear. Multiple wires are noted projecting over the chest. IMPRESSION: Minimal bibasilar atelectasis with otherwise no acute disease.
[2020-02-22] MEDS ORDERED: MORPHINE SULFATE 10 MG/ML INJ ONE (02:09)
[2020-02-22] MEDS: MORPHINE SULFATE 10 MG/ML INJ IV PRN ×2 (02:10→05:15)
--- NOTE | 2020-02-22 02:18 | CRITICAL CARE ADMISSION REPORT ---
<MYRA PANIAGUA - Last Filed: 02/22/20 01:46> HPI Date:: 02/22/20 Time:: 01:00 Reason for ICU Reason:: Sepsis, COPD Admission Date/Time & PCP: Admission Date/Time: 02/21/20 16:04 Primary Care Provider: ETELVINA IBRAHIM MD HPI: 69-year-old male, history of CHF, HTN, A. fib status post ablation, COPD, HAIDER on nocturnal BiPAP. Patient also has a history of known lung nodules without com pleted work-up. He presented to the emergency department today with a 4-day history of worsening abdominal pain, nausea vomiting anorexia and low-grade fever. CT of abdomen showed evidence of inflammatory changes indicative of appendicitis. Also found on CT was an interval increase in the size of his pulmonary nodules with new evidence of bony lesions suggestive of metastatic disease. Patient was taken to the OR for acute appendicitis. Operative evaluation showed right colon ischemia which was included in the resection. (Please see operative report for details). Approximately 1 unit of blood loss was reported during surgery and patient had remained more dynamically stable during the procedure. Cardiology was consulted preop due to elevated troponin levels. Echocardiogram showed no significant wall motion abnormality with normal LVEF. He arrived in the intensive care unit intubated, in critical but stable condition with a normal blood pressure and normal SPO2. History obtained from:: Documentation. - Diagnosis/Plan (1) Appendicitis Qualifiers: Appendicitis type: acute appendicitis Acute appendicitis type: with localized peritonitis Appendicitis gangrene presence: unspecified whether gangrene present Appendicitis perforation presence: with perforation Appendicitis abscess presence: with abscess Qualified Code(s): K35.33 - Acute appendicitis with perforation and localized peritonitis, with abscess Is this a current diagnosis for this admission?: Yes Plan: Status post appendectomy with partial right hemicolectomy. No signs of septic shock. * Continue postoperative volume resuscitation with LR at 125 mL/h * Continue pain control with morphine 2 mg every 2 hours as needed. * Wean to extubate this morning. Incentive spirometer postextubation. * Maintain adequate body temperature * Monitor drainage output. (2) Elevated troponin Is this a current diagnosis for this admission?: Yes Plan: Patient being followed by cardiology. Although he has an extensive cardiac history including CHF, A. fib status post ablation, his echocardiogram appeared normal preop and we are not currently suspecting any cardiac event during this admission. * Follow-up troponins. * Continue to follow closely with cardiology. (3) Lung nodules Is this a current diagnosis for this admission?: Yes Plan: Lung nodules appeared to have increased in size since previous CAT scan. Also f ound to have new bony lesions consistent with metastatic disease. 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 Denies: Tuberculosis EENT Medical History: Reports: None Neurological Medical History: Reports: None Endocrine Medical History: Reports: Obesity Denies: Diabetes Mellitus Type 2, Hypothyroidism Renal/ Medical History: Reports: None Malignancy Medical History: Reports: Other - new Dx lung nodules w/ bone mets GI Medical History: Reports: Gastroesophageal Reflux Disease Skin Medical History: Reports: None Psychiatric Medical History: Reports: None Traumatic Medical History: Reports: None Hematology: Reports: None Infectious Medical History: Reports: None Past Surgical History Past Surgical History: Reports: Cardiac Catheterization - ablasion February 2014, Cholecystectomy - Cholecystectomy complicated requiring liver resection. Social/Family History - Social History Lives with: Family Smoking Status: Former Smoker Frequency of Alcohol Use: None Hx Recreational Drug Use: No Hx Prescription Drug Abuse: No - Medication/Allergies Home Medications: Furosemide [Lasix 40 mg Tablet] 40 mg PO QAM #30 tablet 06/20/13 Lisinopril [Prinivil 10 mg Tablet] 10 mg PO DAILY #30 tablet 06/20/13 Spironolactone 25 mg PO DAILY #30 tablet 06/20/13 Carvedilol [Coreg 12.5 mg Tablet] 12.5 mg PO Q12 10/30/14 Montelukast Sodium [Singulair 10 mg Tablet] 10 mg PO QHS #30 tablet 11/03/14 Aspirin [Ecotrin 81 mg EC Tablet] 81 mg PO DAILY 02/21/20 Atorvastatin Calcium [Lipitor 20 mg Tablet] 20 mg PO QHS 02/21/20 Cyanocobalamin (Vitamin B-12) [Vitamin B-12 1000 Mcg Tablet] 2,000 mcg PO BID 02/21/20 Diclofenac Sodium 2 gm TOP QIDP PRN 02/21/20 Docusate Sodium [Colace 100 mg Capsule] 100 mg PO DAILY 02/21/20 Flecainide Acetate [Tambocor 100 mg Tablet] 100 mg PO DAILY 02/21/20 Hydrocodone/Acetaminophen [[place] 5-325 mg Tablet] 1 tab PO Q6HP PRN MDD filled 02/16 for 5 day supply 02/21/20 [place]-3 Fatty Acids/Fish Oil [[place] 3 Fish Oil Softgel] 1 each PO BID 02/21/20 Tizanidine HCl 4 mg PO Q8HP PRN 02/21/20 Allergies/Adverse Reactions: Penicillins Allergy (Severe, Verified 06/16/13 08:53) Anaphylaxis Tetanus Vaccines and Toxoid [Tetanus] Allergy (Severe, Verified 06/16/13 08:53) Anaphylaxis Review of Systems ROS unobtainable: Due to endotracheal tube, Due to mental status Physical Exam Vital Signs: Temp Pulse Resp BP Pulse Ox 96.8 F L 88 16 122/56 L 99 02/21/20 23:15 02/21/20 23:15 02/21/20 23:15 02/21/20 23:15 02/22/20 00:44 Intake & Output 02/20/20 02/21/20 02/22/20 06:59 06:59 06:59 Intake Total 1117 Output Total 375 Balance 742 Weight 114.2 kg Weight/Height Weight 114.2 kg Height 5 ft 7 in General appearance: PRESENT: no acute distress, morbidly obese Head exam: PRESENT: atraumatic Eye exam: PRESENT: EOMI, PERRLA Mouth exam: PRESENT: dry mucosa, neck supple Neck exam: PRESENT: full ROM. ABSENT: JVD Respiratory exam: PRESENT: clear to auscultation anshul, unlabored. ABSENT: rhonchi, wheezes Cardiovascular exam: PRESENT: RRR, +S1, +S2 Pulses: PRESENT: normal carotid pulses, +2 pedal pulses bilateral Vascular exam: PRESENT: normal capillary refill GI/Abdominal exam: PRESENT: hypoactive bowel sounds Extremities exam: ABSENT: pedal edema Musculoskeletal exam: PRESENT: normal inspection Neurological exam: PRESENT: awake, CN II-XII grossly intact Tubes/Lines: PRESENT: Endotracheal Tube, Nasogastic Tube Laboratory/Radiographs Laboratory Results: 02/22/20 00:21 02/22/20 00:21 02/21/20 02/21/20 02/21/20 12:39 12:39 12:39 WBC 20.4 H RBC 3.58 L Hgb 11.4 L Hct 34.0 L MCV 95 MCH 31.7 MCHC 33.4 RDW 13.3 Plt Count 200 Seg Neutrophils % Not Reportable VBG pH 7.48 H VBG pCO2 29.6 L VBG HCO3 21.7 VBG Base Excess -0.8 Sodium 132.8 L Potassium 3.8 Chloride 100 Carbon Dioxide 23 Anion Gap 10 BUN 20 Creatinine 0.86 Est GFR ( Amer) > 60 Glucose 111 H Lactic Acid Calcium 10.9 H Total Bilirubin 1.7 H AST 27 Alkaline Phosphatase 213 H Total Protein 7.1 Albumin 3.9 Urine Color Urine Appearance Urine pH Ur Specific [place] Urine Protein Urine Glucose (UA) Urine Ketones Urine Blood Urine Nitrite Ur Leukocyte Esterase Urine WBC (Auto) Urine RBC (Auto) 02/21/20 02/21/20 02/21/20 12:39 14:38 14:40 WBC RBC Hgb Hct MCV MCH MCHC RDW Plt Count Seg Neutrophils % VBG pH VBG pCO2 VBG HCO3 VBG Base Excess Sodium Potassium Chloride Carbon Dioxide Anion Gap BUN Creatinine Est GFR ( Amer) Glucose Lactic Acid 0.7 1.0 Calcium Total Bilirubin AST Alkaline Phosphatase Total Protein Albumin Urine Color YELLOW Urine Appearance SLIGHTLY-CLOUDY Urine pH 5.0 Ur Specific [place] 1.013 Urine Protein NEGATIVE Urine Glucose (UA) NEGATIVE Urine Ketones NEGATIVE Urine Blood MODERATE H Urine Nitrite NEGATIVE Ur Leukocyte Esterase NEGATIVE Urine WBC (Auto) 1 Urine RBC (Auto) 2 02/21/20 02/21/20 02/21/20 16:58 16:58 19:29 WBC 20.5 H RBC 3.39 L Hgb 10.8 L Hct 32.2 L MCV 95 MCH 31.8 MCHC 33.4 RDW 13.6 Plt Count 188 Seg Neutrophils % Not Reportable VBG pH VBG pCO2 VBG HCO3 VBG Base Excess Sodium 132.7 L Potassium 3.8 Chloride 100 Carbon Dioxide 24 Anion Gap 9 BUN 20 Creatinine 0.90 Est GFR ( Amer) > 60 Glucose 111 H Lactic Acid 1.0 Calcium 10.6 H Total Bilirubin AST Alkaline Phosphatase Total Protein Albumin Urine Color Urine Appearance Urine pH Ur Specific [place] Urine Protein Urine Glucose (UA) Urine Ketones Urine Blood Urine Nitrite Ur Leukocyte Esterase Urine WBC (Auto) Urine RBC (Auto) 02/22/20 02/22/20 00:21 00:21 WBC 17.6 H RBC 3.64 L Hgb 11.7 L Hct 35.0 L MCV 96 MCH 32.0 MCHC 33.3 RDW 13.7 Plt Count 184 Seg Neutrophils % VBG pH VBG pCO2 VBG HCO3 VBG Base Excess Sodium 134.8 L Potassium 4.3 Chloride 104 Carbon Dioxide 22 Anion Gap 9 BUN 20 Creatinine 0.86 Est GFR ( Amer) > 60 Glucose 127 H Lactic Acid Calcium 9.9 Total Bilirubin 2.1 H AST 27 Alkaline Phosphatase 182 H Total Protein 6.3 Albumin 3.3 L Urine Color Urine Appearance Urine pH Ur Specific [place] Urine Protein Urine Glucose (UA) Urine Ketones Urine Blood Urine Nitrite Ur Leukocyte Esterase Urine WBC (Auto) Urine RBC (Auto) 02/21/20 02/21/20 02/21/20 16:15 19:29 19:29 CK-MB (CK-2) 1.34 Troponin I 1.170 0.926 NT-Pro-B Natriuret Pep 289 H Impressions: Abdomen/Pelvis CT 02/21/20 14:37 IMPRESSION: 1. Increased size of the right lower lobe pulmonary nodule measuring 2.1 cm, previously 1.6 cm. Malignancy is highy suspected. PET-CT or tissue sampling should be considered 2. Dilated appendix with significant pericecal inflammatory change compatible with acute appendicitis. No focal drainable collection. Recommend surgical consultation. 3. Innumerable lucent osseous lesions suggestive neoplasm, likely metastatic disease versus multiple myeloma. Findings discussed with Dr. Gamble At 1519 hours on 02/21/2020. All labs, radiographs, diagnostic studies and EKGs were personally reviewed: Yes In addition, reports of radiographic and diagnostic studies were read: Yes Critical Time Critical Time (minutes): 68 -: The care of a critically ill patient is dynamic. This note represents a static moment in the admission process. Orders and treatments may be given simultaneously and urgently, and time is not environmental marketing representative of the treatment process. This patient requires Critical Care secondary to life threatening organ or limb dysfunction. Without Critical Care services, the patient is at risk for increased mortality and morbidity. <WILLIAMS CALHOUN - Last Filed: 02/22/20 08:27> HPI Admission Date/Time & PCP: Admission Date/Time: 02/21/20 16:04 Primary Care Provider: ETELVINA IBRAHIM MD Plan Summary: I personally saw and evaluated patient after his initial admission and discussed the case findings and care with BONITA Paniagua. Given the complex nature of his illness and medication history I also provided critical care time in the ICU. Please see my note which is a addended to the critical care time provided by BONITA Paniagua Physical Exam Vital Signs: Temp Pulse Resp BP Pulse Ox 100.9 F H 114 H 24 H 124/64 97 02/22/20 08:00 02/22/20 08:00 02/22/20 08:00 02/22/20 08:00 02/22/20 08:20 Intake & Output 02/21/20 02/22/20 02/23/20 06:59 06:59 06:59 Intake Total 1380 37 Output Total 970 210 Balance 410 -173 Weight 114.2 kg Weight/Height Weight 114.2 kg Height 5 ft 7 in Laboratory/Radiographs Laboratory Results: 02/22/20 06:01 02/22/20 06:01 02/21/20 02/21/20 02/21/20 12:39 12:39 12:39 WBC 20.4 H RBC 3.58 L Hgb 11.4 L Hct 34.0 L MCV 95 MCH 31.7 MCHC 33.4 RDW 13.3 Plt Count 200 Seg Neutrophils % Not Reportable Retic Count (auto) Carbonic Acid HCO3/H2CO3 Ratio ABG pH ABG pCO2 ABG pO2 ABG HCO3 ABG O2 Saturation ABG Base Excess VBG pH 7.48 H VBG pCO2 29.6 L VBG HCO3 21.7 VBG Base Excess -0.8 FiO2 Sodium 132.8 L Potassium 3.8 Chloride 100 Carbon Dioxide 23 Anion Gap 10 BUN 20 Creatinine 0.86 Est GFR ( Amer) > 60 Glucose 111 H Lactic Acid Calcium 10.9 H Magnesium Iron TIBC % Saturation Transferrin Ferritin Total Bilirubin 1.7 H AST 27 Alkaline Phosphatase 213 H Total Protein 7.1 Albumin 3.9 Vitamin B12 Folate Urine Color Urine Appearance Urine pH Ur Specific [place] Urine Protein Urine Glucose (UA) Urine Ketones Urine Blood Urine Nitrite Ur Leukocyte Esterase Urine WBC (Auto) Urine RBC (Auto) 02/21/20 02/21/20 02/21/20 12:39 14:38 14:40 WBC RBC Hgb Hct MCV MCH MCHC RDW Plt Count Seg Neutrophils % Retic Count (auto) Carbonic Acid HCO3/H2CO3 Ratio ABG pH ABG pCO2 ABG pO2 ABG HCO3 ABG O2 Saturation ABG Base Excess VBG pH VBG pCO2 VBG HCO3 VBG Base Excess FiO2 Sodium Potassium Chloride Carbon Dioxide Anion Gap BUN Creatinine Est GFR ( Amer) Glucose Lactic Acid 0.7 1.0 Calcium Magnesium Iron TIBC % Saturation Transferrin Ferritin Total Bilirubin AST Alkaline Phosphatase Total Protein Albumin Vitamin B12 Folate Urine Color YELLOW Urine Appearance SLIGHTLY-CLOUDY Urine pH 5.0 Ur Specific [place] 1.013 Urine Protein NEGATIVE Urine Glucose (UA) NEGATIVE Urine Ketones NEGATIVE Urine Blood MODERATE H Urine Nitrite NEGATIVE Ur Leukocyte Esterase NEGATIVE Urine WBC (Auto) 1 Urine RBC (Auto) 2 02/21/20 02/21/20 02/21/20 16:58 16:58 19:29 WBC 20.5 H RBC 3.39 L Hgb 10.8 L Hct 32.2 L MCV 95 MCH 31.8 MCHC 33.4 RDW 13.6 Plt Count 188 Seg Neutrophils % Not Reportable Retic Count (auto) Carbonic Acid HCO3/H2CO3 Ratio ABG pH ABG pCO2 ABG pO2 ABG HCO3 ABG O2 Saturation ABG Base Excess VBG pH VBG pCO2 VBG HCO3 VBG Base Excess FiO2 Sodium 132.7 L Potassium 3.8 Chloride 100 Carbon Dioxide 24 Anion Gap 9 BUN 20 Creatinine 0.90 Est GFR ( Amer) > 60 Glucose 111 H Lactic Acid 1.0 Calcium 10.6 H Magnesium Iron TIBC % Saturation Transferrin Ferritin Total Bilirubin AST Alkaline Phosphatase Total Protein Albumin Vitamin B12 Folate Urine Color Urine Appearance Urine pH Ur Specific [place] Urine Protein Urine Glucose (UA) Urine Ketones Urine Blood Urine Nitrite Ur Leukocyte Esterase Urine WBC (Auto) Urine RBC (Auto) 02/22/20 02/22/20 02/22/20 00:21 00:21 01:19 WBC 17.6 H RBC 3.64 L Hgb 11.7 L Hct 35.0 L MCV 96 MCH 32.0 MCHC 33.3 RDW 13.7 Plt Count 184 Seg Neutrophils % Retic Count (auto) Carbonic Acid 1.21 HCO3/H2CO3 Ratio 20:1 ABG pH 7.40 ABG pCO2 40.1 ABG pO2 99.7 ABG HCO3 24.2 H ABG O2 Saturation 97.5 ABG Base Excess -0.6 VBG pH VBG pCO2 VBG HCO3 VBG Base Excess FiO2 60% Sodium 134.8 L Potassium 4.3 Chloride 104 Carbon Dioxide 22 Anion Gap 9 BUN 20 Creatinine 0.86 Est GFR ( Amer) > 60 Glucose 127 H Lactic Acid Calcium 9.9 Magnesium Iron TIBC % Saturation Transferrin Ferritin Total Bilirubin 2.1 H AST 27 Alkaline Phosphatase 182 H Total Protein 6.3 Albumin 3.3 L Vitamin B12 Folate Urine Color Urine Appearance Urine pH Ur Specific [place] Urine Protein Urine Glucose (UA) Urine Ketones Urine Blood Urine Nitrite Ur Leukocyte Esterase Urine WBC (Auto) Urine RBC (Auto) 02/22/20 02/22/20 02/22/20 06:01 06:01 06:01 WBC 19.3 H RBC 3.32 L Hgb 10.6 L Hct 31.5 L MCV 95 MCH 31.8 MCHC 33.6 RDW 13.6 Plt Count 185 Seg Neutrophils % Retic Count (auto) 1.99 Carbonic Acid HCO3/H2CO3 Ratio ABG pH ABG pCO2 ABG pO2 ABG HCO3 ABG O2 Saturation ABG Base Excess VBG pH VBG pCO2 VBG HCO3 VBG Base Excess FiO2 Sodium 132.7 L Potassium 4.2 Chloride 104 Carbon Dioxide 24 Anion Gap 5 BUN 18 Creatinine 0.78 Est GFR ( Amer) > 60 Glucose 121 H Lactic Acid Calcium 9.7 Magnesium 1.2 L* Iron 13.5 L TIBC 229 L % Saturation 6 Transferrin 154.21 L Ferritin 810.00 H Total Bilirubin AST Alkaline Phosphatase Total Protein Albumin Vitamin B12 975.0 H Folate 13.30 Urine Color Urine Appearance Urine pH Ur Specific [place] Urine Protein Urine Glucose (UA) Urine Ketones Urine Blood Urine Nitrite Ur Leukocyte Esterase Urine WBC (Auto) Urine RBC (Auto) 02/21/20 02/21/20 02/21/20 16:15 19:29 19:29 CK-MB (CK-2) 1.34 Troponin I 1.170 0.926 NT-Pro-B Natriuret Pep 289 H 02/22/20 02/22/20 00:21 06:01 CK-MB (CK-2) 1.13 0.79 Troponin I 0.587 0.409 NT-Pro-B Natriuret Pep Impressions: Abdomen/Pelvis CT 02/21/20 14:37 IMPRESSION: 1. Increased size of the right lower lobe pulmonary nodule measur ing 2.1 cm, previously 1.6 cm. Malignancy is highy suspected. PET-CT or tissue sampling should be considered 2. Dilated appendix with significant pericecal inflammatory change compatible with acute appendicitis. No focal drainable collection. Recommend surgical consultation. 3. Innumerable lucent osseous lesions suggestive neoplasm, likely metastatic disease versus multiple myeloma. Findings discussed with Dr. Gamble At 1519 hours on 02/21/2020. Chest X-Ray 02/22/20 00:00 IMPRESSION: Minimal bibasilar atelectasis with otherwise no acute disease. Critical Time -: The care of a critically ill patient is dynamic. This note represents a static moment in the admission process. Orders and treatments may be given sim ultaneously and urgently, and time is not environmental marketing representative of the treatment process. This patient requires Critical Care secondary to life threatening organ or limb dysfunction. Without Critical Care services, the patient is at risk for increased mortality and morbidity.
[2020-02-22] MEDS: ACETAMINOPHEN 325 MG TABLET PO PRN (03:23)
[2020-02-22] MEDS ORDERED: MORPHINE SULFATE 10 MG/ML INJ IV SCH (04:00)
[2020-02-22] MEDS ORDERED: HEPARIN SOD (PORCINE) 5,000 UNIT/ML 1 ML VIAL SUBCUT SCH (06:00)
[2020-02-22 06:18] LABS: ABSOLUTE RETICS # 0.066 10^6/uL (0.028-0.122); HEMATOCRIT 31.5 % (37.9-51.0); HEMOGLOBIN 10.6 g/dL (13.5-17.0); MEAN CORPUSCULAR HEMOGLOBIN 31.8 pg (27.0-33.4); MEAN CORPUSCULAR HGB CONC 33.6 g/dL (32.0-36.0); MEAN CORPUSCULAR VOLUME 95 fl (80-97); PLATELET COUNT 185 10^3/uL (150-450); RED BLOOD COUNT 3.32 10^6/uL (4.35-5.55); RED CELL DISTRIBUTION WIDTH 13.6 % (11.5-14.0); RETICULOCYTE COUNT (AUTO) 1.99 % (0.66-2.85); WHITE BLOOD COUNT 19.3 10^3/uL (4.0-10.5)
[2020-02-22 06:36] LABS: ANION GAP 5 (5-19); BLOOD UREA NITROGEN 18 mg/dL (7-20); CALCIUM 9.7 mg/dL (8.4-10.2); CARBON DIOXIDE 24 mmol/L (22-30); CHLORIDE 104 mmol/L (98-107); GLUCOSE 121 mg/dL (75-110); IRON(TIBC) 13.5 ug/dL (49-181); POTASSIUM 4.2 mmol/L (3.6-5.0)
[2020-02-22 06:45] LABS: CREATINE KINASE MB 0.79 ng/mL (<4.55); TROPONIN I 0.409 ng/mL
--- NOTE | 2020-02-22 07:04 | Progress Note ---
Provider Note Provider Note: Hematology/Oncology consult was received. Patient underwent appendectomy this morning. I reviewed the chart and will be happy to see him tomorrow morning and complete official consult once he has recovered from his surgery. Please call if needed.
[2020-02-22] MEDS: MIDAZOLAM HCL 50 MG/100 ML RTUINJ IV PRN (07:31)
[2020-02-22] MEDS ORDERED: MAGNESIUM SULFATE 4 GM/100 ML RTUPB IV ONE (08:00)
[2020-02-22] MEDS: DEXMEDETOMIDINE IN 0.9 % NACL 400 MCG/100 ML RTUPB IV PRN ×4 (08:10→21:40)
[2020-02-22] MEDS: FENTANYL CITRATE INJ/PF 100 MCG/2 ML AMPUL IV PRN ×2 (08:24→23:14)
[2020-02-22] MEDS ORDERED: MEROPENEM 1 GM in NORMAL SALINE 50 ML IV SCH (09:00)
[2020-02-22 09:01] LABS: ARTERIAL BLOOD BASE EXCESS 0.5 mmol/L; ARTERIAL BLOOD H2CO3 1.08 mmol/L (1.05-1.35); ARTERIAL BLOOD HCO3 24.1 mmol/L (20-24); ARTERIAL BLOOD O2 SATURATION 95.1 % (94-98); ARTERIAL BLOOD PCO2 35.8 mmHg (35-45); ARTERIAL BLOOD PH 7.45 (7.35-7.45); ARTERIAL BLOOD PO2 71.3 mmHg (80-100); ARTERIAL BLOOD TOTAL CO2 25.2 mmol/L (23-27)
[2020-02-22 09:04] LABS: ARTERIAL BLOOD FIO2 30%
--- NOTE | 2020-02-22 09:47 | EKG REPORT ---
SEVERITY:- ABNORMAL ECG - SINUS TACHYCARDIA INCOMPLETE RIGHT BUNDLE BRANCH BLOCK PROBABLE LEFT VENTRICULAR HYPERTROPHY : Confirmed by: Willie Thompson MD 22-Feb-2020 09:46:44
[2020-02-22] MEDS ORDERED: SPIRONOLACTONE 25 MG TABLET PO SCH (10:00)
[2020-02-22] MEDS ORDERED: LEVOFLOXACIN 750 MG/D5W RTU 750 MG/150 ML RTUPB IV SCH (10:00)
[2020-02-22] MEDS: FLECAINIDE ACETATE 100 MG TABLET PO SCH ×2 (11:12→15:02)
[2020-02-22] MEDS: LISINOPRIL 10 MG TABLET PO SCH (11:12)
[2020-02-22] MEDS: HYDROCORTISONE SOD SUCCINATE INJ/PF 100 MG/2 ML SDV IV SCH ×3 (11:22→22:05)
[2020-02-22] MEDS ORDERED: ALBUMIN HUMAN 500 ML IV ONE (12:00)
[2020-02-22] MEDS ORDERED: RINGERS SOLUTION,LACTATED 1,000 ML IV ONE (12:53)
[2020-02-22] MEDS ORDERED: MIDAZOLAM 2 MG/2 ML INJ IV ONE (13:00)
[2020-02-22] MEDS ORDERED: NOREPINEPHRINE BITARTRATE INJ/PF 4 MG/4 ML SDV IV ONE (13:09)
[2020-02-22] MEDS: DEXTROSE 5%-WATER 250 ML with NOREPINEPHRINE BITARTRATE 4 MG IV PRN ×2 (13:23)
[2020-02-22 13:48] LABS: HEMATOCRIT 24.8 % (37.9-51.0); MEAN CORPUSCULAR HGB CONC 33.4 g/dL (32.0-36.0); MEAN CORPUSCULAR VOLUME 96 fl (80-97); PLATELET COUNT 159 10^3/uL (150-450); RED BLOOD COUNT 2.58 10^6/uL (4.35-5.55); RED CELL DISTRIBUTION WIDTH 13.4 % (11.5-14.0)
--- NOTE | 2020-02-22 13:56 | Progress Note ---
Provider Note Provider Note: I personally saw and evaluated the patient in the ICU after his admission from the operating room. Reviewed history and physical as well as electronic medical records. Also had a lengthy discussion with patient's concerning his condition. That discussion also included his medication history and allergy history. Notably, patient has been listed as having a severe penicillin allergy. Apparently the patient was given penicillin as a child and developed some type of swelling. There is no recollection that this caused any airway compromise. I spoke with pharmacy patient has never had a cephalosporin here. My concern is that the patient is on Levaquin and Tambocor which can cause significant arrhythmic potentials. On examination patient is calm. He is breathing comfortably. He is following commands and able to lift his head. His hemodynamics have been non-labile. He is on Versed drip which is being weaned. He has minimal pain. Incision is clean and dry. Lungs are clear. His abdomen is somewhat rotund and bowel sounds are quiet There is no evidence of mottling. He has good peripheral perfusion and capillary refill. Labs and data were reviewed. EKG shows a QTC which is acceptable at 433 ms, however he does have an intraventricular conduction delay. CXR shows low lung volumes CT scan shows evidence of metastatic disease in bone and there are masses in lung cuts on CT. Respiratory: From a respiratory status we will evaluate for the patient's ability to wean from mechanical ventilation. He does have a peripheral lesion that would be amenable to CT-guided biopsy and will discuss with family the ability to obtain while patient is here in the hospital. We will also discuss with radiology about the feasibility of this as well. Given the reduction in his thoracal abdominal cylinder he may be a difficult liberation. Will provide Precedex for tranquility to prevent any sedated related respiratory compromise. Will provide albuterol short acting beta agonist therapy only and prevent the use of ipratropium or any other parasympathomimetics agents so as to prevent any further bowel issues. Infectious: Patient has walled off abscess. Surgery has certainly been helpful to remove this nidus. We will continue to follow. Given the infection we will place him on meropenem. I have elected to start him on this while he is on mechanical ventilation in an effort to prevent any airway compromise should meropenem because an allergic reaction. The patient has never had skin testing and based on published reports the possibility of a reaction ranges from 0 to 11%. We will provide steroids if there is any evidence to support a reaction. I have discontinued Levaquin because of the arrhythmogenic potential of this drug and other side effects. Approximately 30 minutes after patient was started on meropenem he had a decrease in his blood pressure. At that point his cortiso l level had not been known and we did give steroids. I do not think this is related to anaphylaxis given the fact that his heart rate is stable his respiratory status is stable and he has no evidence as far as erythema or skin lesions to support a reaction. That being said however I did place a call to infectious diseases ([facility]) for a brief discussion. She to feels that it probably was not the meropenem but is in agreement with changing to aztreonam and Flagyl for now. Have given patient IV fluids and started him on Levophed to help support blood pressure until steroid effect improves overall. We will check a CBC for the possibility of hypotension related to blood loss. Cardiac: Patient has been listed as having heart failure. He has an intact ejection fraction and an LV function which is quite suitable. I have discontinued spironolactone which would have an unacceptable safety profile while in the ICU. He is on flecainide and will need to be prudent and following his electrical rhythms and being assured that there is no synergistic collaboration with medications which would cause harm. I have started him on Precedex for sedation and will need to follow his heart rate with this. Hematologic/oncologic: Patient appears to have metastatic disease. Oncology has been consulted. I have ordered a PSA however the lung mass on the right lower lung may be amenable to biopsy. Will speak with radiology and oncology. Endocrine: We will check TSH. Patient's cortisol level is 4 which is dramatically low and consistent with adrenal insufficiency--have supported with Solu-Cortef we will watch for improvement as well as hyperglycemia Renal: Continue to monitor supportively. IV fluids changed to LR to prevent any sodium chloride induced acidosis or renal failure Metabolic: Patient's electrolytes are monitored. Magnesium has been replaced and we will follow supportively Alimentary: Continue to monitor for bowel movements and motility. Prevent use of parasympathomimetics agents and limit narcotics to allow for motility. Neurologic: Sedation and tranquility with dexmedetomidine. Sedation: Changed to dexmedetomidine and PRN fentanyl Lines/Tubes: Peripheral IVs and Ross Other: Patient to be maintained in the ICU and requires critical care secondary to complex illness including the need for mechanical ventilation post surgery secondary to obesity and COPD Diagnoses: 1. Intraperitoneal abscess with appendicitis 2. Postoperative state status post exploratory laparotomy 3. encounter for weaning from mechanical ventilation 4. Multiple lung nodules with concern for metastatic disease unknown primary 5. Obesity with obesity hypoventilation syndrome 6. Leukocytosis secondary to leukemoid reaction from surgery 7. Postoperative pain 8. Adrenal insufficiency 9. Penicillin Allergy Total critical care time excluding any procedures was 100 minutes
[2020-02-22 13:57] LABS: HEMOGLOBIN 8.3 g/dL (13.5-17.0)
--- NOTE | 2020-02-22 14:19 | PDOC PROGRESS REPORT ---
Subjective Progress Note for:: 02/22/20 Reason For Visit: RUPTURED APPENDIX,SEPSIS Physical Exam Vital Signs: Temp Pulse Resp BP Pulse Ox 99.7 F 66 19 128/55 H 98 02/22/20 12:00 02/22/20 12:00 02/22/20 14:04 02/22/20 14:04 02/22/20 14:04 Intake & Output 02/21/20 02/22/20 02/23/20 06:59 06:59 06:59 Intake Total 1380 1199 Output Total 970 260 Balance 410 939 Weight 114.2 kg Results Laboratory Results: 02/22/20 13:20 02/22/20 06:01 02/21/20 02/21/20 02/21/20 14:38 14:40 16:58 WBC 20.5 H RBC 3.39 L Hgb 10.8 L Hct 32.2 L MCV 95 MCH 31.8 MCHC 33.4 RDW 13.6 Plt Count 188 Seg Neutrophils % Not Reportable Retic Count (auto) Carbonic Acid HCO3/H2CO3 Ratio ABG pH ABG pCO2 ABG pO2 ABG HCO3 ABG O2 Saturation ABG Base Excess FiO2 Sodium Potassium Chloride Carbon Dioxide Anion Gap BUN Creatinine Est GFR ( Amer) Glucose Lactic Acid 1.0 Calcium Magnesium Iron TIBC % Saturation Transferrin Ferritin Total Bilirubin AST Alkaline Phosphatase Ammonia Total Protein Albumin Prostate Specific Ag Vitamin B12 Folate TSH Urine Color YELLOW Urine Appearance SLIGHTLY-CLOUDY Urine pH 5.0 Ur Specific Mcgraw 1.013 Urine Protein NEGATIVE Urine Glucose (UA) NEGATIVE Urine Ketones NEGATIVE Urine Blood MODERATE H Urine Nitrite NEGATIVE Ur Leukocyte Esterase NEGATIVE Urine WBC (Auto) 1 Urine RBC (Auto) 2 02/21/20 02/21/20 02/22/20 16:58 19:29 00:21 WBC 17.6 H RBC 3.64 L Hgb 11.7 L Hct 35.0 L MCV 96 MCH 32.0 MCHC 33.3 RDW 13.7 Plt Count 184 Seg Neutrophils % Retic Count (auto) Carbonic Acid HCO3/H2CO3 Ratio ABG pH ABG pCO2 ABG pO2 ABG HCO3 ABG O2 Saturation ABG Base Excess FiO2 Sodium 132.7 L Potassium 3.8 Chloride 100 Carbon Dioxide 24 Anion Gap 9 BUN 20 Creatinine 0.90 Est GFR ( Amer) > 60 Glucose 111 H Lactic Acid 1.0 Calcium 10.6 H Magnesium Iron TIBC % Saturation Transferrin Ferritin Total Bilirubin AST Alkaline Phosphatase Ammonia Total Protein Albumin Prostate Specific Ag Vitamin B12 Folate TSH Urine Color Urine Appearance Urine pH Ur Specific Mcgraw Urine Protein Urine Glucose (UA) Urine Ketones Urine Blood Urine Nitrite Ur Leukocyte Esterase Urine WBC (Auto) Urine RBC (Auto) 02/22/20 02/22/20 02/22/20 00:21 01:19 06:01 WBC 19.3 H RBC 3.32 L Hgb 10.6 L Hct 31.5 L MCV 95 MCH 31.8 MCHC 33.6 RDW 13.6 Plt Count 185 Seg Neutrophils % Retic Count (auto) 1.99 Carbonic Acid 1.21 HCO3/H2CO3 Ratio 20:1 ABG pH 7.40 ABG pCO2 40.1 ABG pO2 99.7 ABG HCO3 24.2 H ABG O2 Saturation 97.5 ABG Base Excess -0.6 FiO2 60% Sodium 134.8 L Potassium 4.3 Chloride 104 Carbon Dioxide 22 Anion Gap 9 BUN 20 Creatinine 0.86 Est GFR ( Amer) > 60 Glucose 127 H Lactic Acid Calcium 9.9 Magnesium Iron TIBC % Saturation Transferrin Ferritin Total Bilirubin 2.1 H AST 27 Alkaline Phosphatase 182 H Ammonia Total Protein 6.3 Albumin 3.3 L Prostate Specific Ag Vitamin B12 Folate TSH Urine Color Urine Appearance Urine pH Ur Specific Mcgraw Urine Protein Urine Glucose (UA) Urine Ketones Urine Blood Urine Nitrite Ur Leukocyte Esterase Urine WBC (Auto) Urine RBC (Auto) 02/22/20 02/22/20 02/22/20 06:01 06:01 06:01 WBC RBC Hgb Hct MCV MCH MCHC RDW Plt Count Seg Neutrophils % Retic Count (auto) Carbonic Acid HCO3/H2CO3 Ratio ABG pH ABG pCO2 ABG pO2 ABG HCO3 ABG O2 Saturation ABG Base Excess FiO2 Sodium 132.7 L Potassium 4.2 Chloride 104 Carbon Dioxide 24 Anion Gap 5 BUN 18 Creatinine 0.78 Est GFR ( Amer) > 60 Glucose 121 H Lactic Acid Calcium 9.7 Magnesium 1.2 L* Iron 13.5 L TIBC 229 L % Saturation 6 Transferrin 154.21 L Ferritin 810.00 H Total Bilirubin AST Alkaline Phosphatase Ammonia Total Protein Albumin Prostate Specific Ag Vitamin B12 975.0 H Folate 13.30 TSH 1.32 Urine Color Urine Appearance Urine pH Ur Specific Mcgraw Urine Protein Urine Glucose (UA) Urine Ketones Urine Blood Urine Nitrite Ur Leukocyte Esterase Urine WBC (Auto) Urine RBC (Auto) 02/22/20 02/22/20 02/22/20 08:35 08:55 08:55 WBC RBC Hgb Hct MCV MCH MCHC RDW Plt Count Seg Neutrophils % Retic Count (auto) Carbonic Acid 1.08 HCO3/H2CO3 Ratio 22:1 ABG pH 7.45 ABG pCO2 35.8 ABG pO2 71.3 L ABG HCO3 24.1 H ABG O2 Saturation 95.1 ABG Base Excess 0.5 FiO2 30% Sodium Potassium Chloride Carbon Dioxide Anion Gap BUN Creatinine Est GFR ( Amer) Glucose Lactic Acid 1.0 Calcium Magnesium Iron TIBC % Saturation Transferrin Ferritin Total Bilirubin AST Alkaline Phosphatase Ammonia < 8.7 L Total Protein Albumin Prostate Specific Ag Vitamin B12 Folate TSH Urine Color Urine Appearance Urine pH Ur Specific Mcgraw Urine Protein Urine Glucose (UA) Urine Ketones Urine Blood Urine Nitrite Ur Leukocyte Esterase Urine WBC (Auto) Urine RBC (Auto) 02/22/20 02/22/20 08:55 13:20 WBC 15.0 H RBC 2.58 L Hgb 8.3 L D Hct 24.8 L MCV 96 MCH 32.0 MCHC 33.4 RDW 13.4 Plt Count 159 Seg Neutrophils % Retic Count (auto) Carbonic Acid HCO3/H2CO3 Ratio ABG pH ABG pCO2 ABG pO2 ABG HCO3 ABG O2 Saturation ABG Base Excess FiO2 Sodium Potassium Chloride Carbon Dioxide Anion Gap BUN Creatinine Est GFR ( Amer) Glucose Lactic Acid Calcium Magnesium Iron TIBC % Saturation Transferrin Ferritin Total Bilirubin AST Alkaline Phosphatase Ammonia Total Protein Albumin Prostate Specific Ag 4.840 H Vitamin B12 Folate TSH Urine Color Urine Appearance Urine pH Ur Specific Mcgraw Urine Protein Urine Glucose (UA) Urine Ketones Urine Blood Urine Nitrite Ur Leukocyte Esterase Urine WBC (Auto) Urine RBC (Auto) 02/21/20 02/21/20 02/21/20 16:15 19:29 19:29 CK-MB (CK-2) 1.34 Troponin I 1.170 0.926 NT-Pro-B Natriuret Pep 289 H 02/22/20 02/22/20 00:21 06:01 CK-MB (CK-2) 1.13 0.79 Troponin I 0.587 0.409 NT-Pro-B Natriuret Pep Impressions: Abdomen/Pelvis CT 02/21/20 14:37 IMPRESSION: 1. Increased size of the right lower lobe pulmonary nodule measuring 2.1 cm, previously 1.6 cm. Malignancy is highy suspected. PET-CT or tissue sampling should be considered 2. Dilated appendix with significant pericecal inflammatory change compatible with acute appendicitis. No focal drainable collection. Recommend surgical consultation. 3. Innumerable lucent osseous lesions suggestive neoplasm, likely metastatic disease versus multiple myeloma. Findings discussed with Dr. Gamble At 1519 hours on 02/21/2020. Chest X-Ray 02/22/20 00:00 IMPRESSION: Minimal bibasilar atelectasis with otherwise no acute disease. Assessment & Plan - Diagnosis (1) Appendicitis Qualifiers: Appendicitis type: acute appendicitis Acute appendicitis type: with localized peritonitis Appendicitis gangrene presence: unspecified whether gangrene present Appendicitis perforation presence: with perforation Appendicitis abscess presence: with abscess Qualified Code(s): K35.33 - Acute appendicitis with perforation and localized peritonitis, with abscess Is this a current diagnosis for this admission?: Yes - Plan Summary Plan Summary: This is a 69-year-old male with. Severe acute appendicitis with abscess formation. The patient remains intubated and sedated. He was slightly hypotensive earlier in the day, but responded to a fluid challenge. The dental hygiene teacher service is following the patient. The patient's incision appears clean, dry, and intact. Continue with supportive care. Continue antibiotics.
[2020-02-22] MEDS: HEPARIN SOD (PORCINE) 5,000 UNIT/ML 1 ML VIAL SUBCUT SCH ×2 (15:06→22:01)
[2020-02-22] MEDS: AZTREONAM 2 GM in DEXTROSE 5%-WATER 100 ML IV SCH ×2 (17:10→22:11)
[2020-02-22 18:30] LABS: HEMATOCRIT 29.4 % (37.9-51.0); MEAN CORPUSCULAR HEMOGLOBIN 32.2 pg (27.0-33.4); MEAN CORPUSCULAR VOLUME 95 fl (80-97); PLATELET COUNT 187 10^3/uL (150-450); RED CELL DISTRIBUTION WIDTH 13.5 % (11.5-14.0); WHITE BLOOD COUNT 17.3 10^3/uL (4.0-10.5)
--- NOTE | 2020-02-22 23:35 | Progress Note ---
Provider Note Provider Note: CARDIOLOGY PROGRESS NOTE by Dr. Paris Vargas on 02/22/2020. SUBJECTIVE: The patient is postoperative day 1. He is intubated and sedated. But appropriate but responds appropriately. There are no arrhythmias seen on the monitor. There is no recurrence of atrial fibrillation. PHYSICAL EXAMINATION: The patient is moderate to morbidly obese. He is intubated and sedated, but in no acute distress. Selected Entries 02/22/20 02/22/20 02/22/20 08:00 09:00 09:46 Core 100.9 F H Temperature Heart Rate ( 112 Monitors) Respiratory 24 H Rate Blood Pressure Blood Pressure 124/64 [Right 1] Blood Pressure Mean Blood Pressure 84 Mean [Right 1] Blood Pressure Supine Position [Right 1] O2 Sat by Pulse 98 Oximetry Oxygen Delivery Mechanical Method ( Ventilator includes room air) Fraction of 30 Inspired Oxygen (FIO2) 02/22/20 02/22/20 09:47 10:00 Core Temperature Heart Rate ( Monitors) Respiratory 19 Rate Blood Pressure 131/66 H Blood Pressure [Right 1] Blood Pressure 87 Mean Blood Pressure Mean [Right 1] Blood Pressure Position [Right 1] O2 Sat by Pulse 94 Oximetry Oxygen Delivery Mechanical Method ( Ventilator includes room air) Fraction of Inspired Oxygen (FIO2) HEAD: Is atraumatic normocephalic. EYES: Pupils are equal round regular reactive light accommodation. ENT is negative NECK: Is supple. There is no JVD. Carotids are equal there is no bruits. There is no lymphadenopathy. There is no goiter. There is no accessory muscle respiration use. LUNGS: There is diminished air entry prolonged expiration. There is no rhonchi rales or wheezing. On percussion there is hyperresonance. HEART: S1-S2 is heard. There is no S3 gallop there is no S4 gallop. There is systolic murmur left sternal border and the apex. There is no rub. ABDOMEN: Is obese. Mildly distended. Bowel sounds are absent. Surgical dressing is dry and clean.. EXTREMITIES femorals are diminished there is no femoral bruits. Leg pulses are diminished. There is no pedal edema. There is no DVT or cellulitis. There is no calf tenderness. There is no cyanosis or clubbing. RAZOR SHARPENER: The patient is intubated. But he appears to be oriented and nods his head appropriately to questions asked. PSYCHIATRIC the patient does not appear to be agitated. He does not appear to be anxious. Abdomen/Pelvis CT 02/21/20 14:37 IMPRESSION: 1. Increased size of the right lower lobe pulmonary nodule measuring 2.1 cm, previously 1.6 cm. Malignancy is highy suspected. PET-CT or tissue sampling should be considered 2. Dilated appendix with significant pericecal inflammatory change compatible with acute appendicitis. No focal drainable collection. Recommend surgical consultation. 3. Innumerable lucent osseous lesions suggestive neoplasm, likely metastatic disease versus multiple myeloma. Findings discussed with Dr. Gamble At 1519 hours on 02/21/2020. Chest X-Ray 02/22/20 00:00 IMPRESSION: Minimal bibasilar atelectasis with otherwise no acute disease. Labs- All tests 24 hr 02/21/20 02/22/20 02/22/20 19:29 00:21 00:21 WBC 17.6 H RBC 3.64 L Hgb 11.7 L Hct 35.0 L MCV 96 MCH 32.0 MCHC 33.3 RDW 13.7 Plt Count 184 Reticulocyte # Retic Count (auto) Carbonic Acid HCO3/H2CO3 Ratio ABG pH ABG pCO2 ABG pO2 ABG HCO3 ABG Total CO2 ABG O2 Saturation ABG Base Excess FiO2 Sodium Potassium Chloride Carbon Dioxide Anion Gap BUN Creatinine Est GFR ( Amer) Est GFR (MDRD) Non-Af Glucose POC Glucose Lactic Acid Calcium Magnesium Iron TIBC % Saturation Transferrin Ferritin Total Bilirubin Direct Bilirubin Neonat Total Bilirubin Neonat Direct Bilirubin Neonat Indirect Bili AST ALT Alkaline Phosphatase Ammonia CK-MB (CK-2) 1.13 Troponin I 0.587 NT-Pro-B Natriuret Pep 289 H Total Protein Albumin Prostate Specific Ag Vitamin B12 Folate TSH Random Cortisol 02/22/20 02/22/20 02/22/20 00:21 00:59 01:19 WBC RBC Hgb Hct MCV MCH MCHC RDW Plt Count Reticulocyte # Retic Count (auto) Carbonic Acid 1.21 HCO3/H2CO3 Ratio 20:1 ABG pH 7.40 ABG pCO2 40.1 ABG pO2 99.7 ABG HCO3 24.2 H ABG Total CO2 25.4 ABG O2 Saturation 97.5 ABG Base Excess -0.6 FiO2 60% Sodium 134.8 L Potassium 4.3 Chloride 104 Carbon Dioxide 22 Anion Gap 9 BUN 20 Creatinine 0.86 Est GFR ( Amer) > 60 Est GFR (MDRD) Non-Af > 60 Glucose 127 H POC Glucose 127 H Lactic Acid Calcium 9.9 Magnesium Iron TIBC % Saturation Transferrin Ferritin Total Bilirubin 2.1 H Direct Bilirubin 1.1 H Neonat Total Bilirubin Not Reportable Neonat Direct Bilirubin Not Reportable Neonat Indirect Bili Not Reportable AST 27 ALT 27 Alkaline Phosphatase 182 H Ammonia CK-MB (CK-2) Troponin I NT-Pro-B Natriuret Pep Total Protein 6.3 Albumin 3.3 L Prostate Specific Ag Vitamin B12 Folate TSH Random Cortisol 02/22/20 02/22/20 02/22/20 06:01 06:01 06:01 WBC 19.3 H RBC 3.32 L Hgb 10.6 L Hct 31.5 L MCV 95 MCH 31.8 MCHC 33.6 RDW 13.6 Plt Count 185 Reticulocyte # 0.066 Retic Count (auto) 1.99 Carbonic Acid HCO3/H2CO3 Ratio ABG pH ABG pCO2 ABG pO2 ABG HCO3 ABG Total CO2 ABG O2 Saturation ABG Base Excess FiO2 Sodium 132.7 L Potassium 4.2 Chloride 104 Carbon Dioxide 24 Anion Gap 5 BUN 18 Creatinine 0.78 Est GFR ( Amer) > 60 Est GFR (MDRD) Non-Af > 60 Glucose 121 H POC Glucose Lactic Acid Calcium 9.7 Magnesium 1.2 L* Iron 13.5 L TIBC 229 L % Saturation 6 Transferrin 154.21 L Ferritin 810.00 H Total Bilirubin Direct Bilirubin Neonat Total Bilirubin Neonat Direct Bilirubin Neonat Indirect Bili AST ALT Alkaline Phosphatase Ammonia CK-MB (CK-2) Troponin I NT-Pro-B Natriuret Pep Total Protein Albumin Prostate Specific Ag Vitamin B12 975.0 H Folate 13.30 TSH Random Cortisol 02/22/20 02/22/20 02/22/20 06:01 06:01 06:02 WBC RBC Hgb Hct MCV MCH MCHC RDW Plt Count Reticulocyte # Retic Count (auto) Carbonic Acid HCO3/H2CO3 Ratio ABG pH ABG pCO2 ABG pO2 ABG HCO3 ABG Total CO2 ABG O2 Saturation ABG Base Excess FiO2 Sodium Potassium Chloride Carbon Dioxide Anion Gap BUN Creatinine Est GFR ( Amer) Est GFR (MDRD) Non-Af Glucose POC Glucose 128 H Lactic Acid Calcium Magnesium Iron TIBC % Saturation Transferrin Ferritin Total Bilirubin Direct Bilirubin Neonat Total Bilirubin Neonat Direct Bilirubin Neonat Indirect Bili AST ALT Alkaline Phosphatase Ammonia CK-MB (CK-2) 0.79 Troponin I 0.409 NT-Pro-B Natriuret Pep Total Protein Albumin Prostate Specific Ag Vitamin B12 Folate TSH 1.32 Random Cortisol 02/22/20 02/22/20 02/22/20 08:35 08:55 08:55 WBC RBC Hgb Hct MCV MCH MCHC RDW Plt Count Reticulocyte # Retic Count (auto) Carbonic Acid 1.08 HCO3/H2CO3 Ratio 22:1 ABG pH 7.45 ABG pCO2 35.8 ABG pO2 71.3 L ABG HCO3 24.1 H ABG Total CO2 25.2 ABG O2 Saturation 95.1 ABG Base Excess 0.5 FiO2 30% Sodium Potassium Chloride Carbon Dioxide Anion Gap BUN Creatinine Est GFR ( Amer) Est GFR (MDRD) Non-Af Glucose POC Glucose Lactic Acid 1.0 Calcium Magnesium Iron TIBC % Saturation Transferrin Ferritin Total Bilirubin Direct Bilirubin Neonat Total Bilirubin Neonat Direct Bilirubin Neonat Indirect Bili AST ALT Alkaline Phosphatase Ammonia < 8.7 L CK-MB (CK-2) Troponin I NT-Pro-B Natriuret Pep Total Protein Albumin Prostate Specific Ag Vitamin B12 Folate TSH Random Cortisol 02/22/20 02/22/20 02/22/20 08:55 08:55 12:51 WBC RBC Hgb Hct MCV MCH MCHC RDW Plt Count Reticulocyte # Retic Count (auto) Carbonic Acid HCO3/H2CO3 Ratio ABG pH ABG pCO2 ABG pO2 ABG HCO3 ABG Total CO2 ABG O2 Saturation ABG Base Excess FiO2 Sodium Potassium Chloride Carbon Dioxide Anion Gap BUN Creatinine Est GFR ( Amer) Est GFR (MDRD) Non-Af Glucose POC Glucose 131 H Lactic Acid Calcium Magnesium Iron TIBC % Saturation Transferrin Ferritin Total Bilirubin Direct Bilirubin Neonat Total Bilirubin Neonat Direct Bilirubin Neonat Indirect Bili AST ALT Alkaline Phosphatase Ammonia CK-MB (CK-2) Troponin I NT-Pro-B Natriuret Pep Total Protein Albumin Prostate Specific Ag 4.840 H Vitamin B12 Folate TSH Random Cortisol 4.84 02/22/20 02/22/20 02/22/20 13:20 17:19 18:12 WBC 15.0 H 17.3 H RBC 2.58 L 3.10 L Hgb 8.3 L D 10.0 L Hct 24.8 L 29.4 L MCV 96 95 MCH 32.0 32.2 MCHC 33.4 34.0 RDW 13.4 13.5 Plt Count 159 187 Reticulocyte # Retic Count (auto) Carbonic Acid HCO3/H2CO3 Ratio ABG pH ABG pCO2 ABG pO2 ABG HCO3 ABG Total CO2 ABG O2 Saturation ABG Base Excess FiO2 Sodium Potassium Chloride Carbon Dioxide Anion Gap BUN Creatinine Est GFR ( Amer) Est GFR (MDRD) Non-Af Glucose POC Glucose 158 H Lactic Acid Calcium Magnesium Iron TIBC % Saturation Transferrin Ferritin Total Bilirubin Direct Bilirubin Neonat Total Bilirubin Neonat Direct Bilirubin Neonat Indirect Bili AST ALT Alkaline Phosphatase Ammonia CK-MB (CK-2) Troponin I NT-Pro-B Natriuret Pep Total Protein Albumin Prostate Specific Ag Vitamin B12 Folate TSH Random Cortisol EKG: Sinus tachycardia. Incomplete right bundle branch block pattern. Probable left ventricular hypertrophy. IMPRESSION/RECOMMENDATION: 1. Elevated troponin I secondary to supply demand mismatch. This is due to the patient's acute appendicitis. No evidence of acute coronary syndrome or non-ST elevation KS. The patient's troponin is trended down. There are no acute EKG changes. 2. Acute appendicitis. S/p surgery. The patient has a phlegmon and an ruptured appendiceal abscess. 3. No evidence of acute coronary syndrome. The patient has no anginal symptoms. The patient on 10/25/2019 has had a negative Cardiolite stress test. Also he has no known history of coronary artery disease. 4. History of paroxysmal l atrial fibrillation: Would recommend continuing the patient's flecainide to prevent the patient reverting back into atrial fibrillation. Agree with stopping Levaquin since the possibility of prolonged QT interval causing ventricular arrhythmias. 5. Hypomagnesemia: Replace magnesium. 6. Hypertension: BP well controlled 7. Hyperlipidemia. 8. COPD: Without exacerbation. 8. Most likely lung cancer with bony mets. This needs to be worked up later. 9. Prior history of cardiomyopathy. The patient's echo in September 2019 showed LV ejection fraction 65 to 70%. 10. Postoperative ventilatory support: Patient will be weaned off as per academic success coordinator. Medications reviewed. Medication recommendations, medical regimen and management plan discussed with academic success coordinator. Medical decision making is of high complexity. 40 minutes spent with patient with more than 50% of time spent in direct patient care. Will follow
[2020-02-23] MEDS: DEXMEDETOMIDINE IN 0.9 % NACL 400 MCG/100 ML RTUPB IV PRN ×2 (01:00→04:29)
[2020-02-23] MEDS: METRONIDAZOLE 500 MG/NS RTU 500 MG/100 ML RTUPB IV SCH ×4 (02:55→21:16)
[2020-02-23] MEDS: RINGERS SOLUTION,LACTATED 1,000 ML IV PRN ×2 (04:01→11:24)
[2020-02-23 04:42] LABS: ABSOLUTE LYMPHOCYTES (AUTO) 1.1 10^3/uL (0.5-4.7); ABSOLUTE MONOCYTES (AUTO) 1.4 10^3/uL (0.1-1.4); ABSOLUTE NEUT (AUTO) 13.6 10^3/uL (1.7-8.2); HEMATOCRIT 28.2 % (37.9-51.0); HEMOGLOBIN 9.6 g/dL (13.5-17.0); LYMPHOCYTES % (AUTO) 6.9 % (13-45); MEAN CORPUSCULAR HEMOGLOBIN 32.4 pg (27.0-33.4); MEAN CORPUSCULAR VOLUME 95 fl (80-97); MONOCYTES % (AUTO) 8.8 % (3-13); PLATELET COUNT 183 10^3/uL (150-450); RED BLOOD COUNT 2.96 10^6/uL (4.35-5.55); RED CELL DISTRIBUTION WIDTH 13.4 % (11.5-14.0); SEGMENTED NEUTROPHILS % (AUTO) 84.3 % (42-78); TOTAL CELLS COUNTED % (AUTO) 100 %; WHITE BLOOD COUNT 16.1 10^3/uL (4.0-10.5)
[2020-02-23 04:58] LABS: PHOSPHORUS 2.9 mg/dL (2.5-4.5)
[2020-02-23] MEDS: AZTREONAM 2 GM in DEXTROSE 5%-WATER 100 ML IV SCH ×3 (06:02→23:28)
[2020-02-23] MEDS: HYDROCORTISONE SOD SUCCINATE INJ/PF 100 MG/2 ML SDV IV SCH ×3 (06:05→21:34)
[2020-02-23] MEDS: HEPARIN SOD (PORCINE) 5,000 UNIT/ML 1 ML VIAL SUBCUT SCH ×3 (06:06→21:33)
[2020-02-23 07:23] LABS: ALKALINE PHOSPHATASE 118 U/L (38-126); ASPARTATE AMINO TRANSFERASE 27 U/L (17-59); BILIRUBIN,DIRECT 0.1 mg/dL (0.0-0.4); BILIRUBIN,TOTAL 0.7 mg/dL (0.2-1.3); TOTAL PROTEIN 5.6 g/dL (6.3-8.2)
--- NOTE | 2020-02-23 09:31 | PDOC CONSULTATION ---
Consultation Consult Date: 02/23/20 Provider Consulted: DEVANTE BUENO Consult reason:: Hematology/Oncology consultation was requested for patient with abnormal CT scan showeing lung and bone masses highly suspicious for metastatic cancer. History of Present Illness Admission Date/PCP: 02/21/20 16:04 ETELVINA WANG MD History of Present Illness: EDINSON BLOCK is a 69 year old male EDINSON BLOCK is a 69 year old male who follows with Dr. Barbara Wang. He presented to the emergency department with a complaint of 4 days of progressively worsening abdominal discomfort, nausea, vomiting, anorexia, with generalized sense of unwell and low-grade temperature. Evaluation emergency department revealed CT imaging demonstrating dilated appendix with significant pericecal inflammatory changes compatible with acute appendicitis, increased size of the pulmonary nodules; malignancy highly susp ected. Numerous lucent osseous lesions suggestive of neoplasm; metastatic disease versus multiple myeloma. He underwent appendectomy yesterday. Today, he is in the ICU still recovering from surgery. He is on BiPAP machine and is a bit difficult to understand, but he states that he has been on CPAP at home for many years and that today he feels well overall. No significant pain or breathing problems. He was working with PCP to get lung biopsy performed on the known pulmonary mass, but due to COVID-19 restrictions, this was delayed. Past Medical History Cardiac Medical History: Reports: Atrial Fibrillation, Congestive Heart Failure, Hyperlipidema, Hypertension Pulmonary Medical History: Reports: Chronic Obstructive Pulmonary Disease (COPD), Sleep Apnea - Patient uses a BiPAP at night. Denies: Tuberculosis EENT Medical History: Reports: None Neurological Medical History: Reports: None Endocrine Medical History: Reports: Obesity Denies: Diabetes Mellitus Type 2, Hypothyroidism Renal/ Medical History: Reports: None Malignancy Medical History: Reports: Other - new Dx lung nodules w/ bone mets GI Medical History: Reports: Gastroesophageal Reflux Disease Skin Medical History: Reports: None Psychiatric Medical History: Reports: None Denies: Depression - Unable to assess, Pt intubated & sedated Traumatic Medical History: Reports: None Hematology: Reports: None Infectious Medical History: Reports: None Past Surgical History Past Surgical History: Reports: Cardiac Catheterization - ablasion February 2014, Cholecystectomy - Cholecystectomy complicated requiring liver resection. Social History Lives with: Family Smoking Status: Former Smoker Frequency of Alcohol Use: None Hx Recreational Drug Use: No Hx Prescription Drug Abuse: No - Advance Directive Resuscitation Status: Full Code Family History Family History: I will review family history when patient is a bit more alert once he has recovered from surgery. Parental Family History Reviewed: No Children Family History Reviewed: No Sibling(s) Family History Reviewed.: No Medication/Allergy Home Medications: Furosemide [Lasix 40 mg Tablet] 40 mg PO QAM #30 tablet 06/20/13 Lisinopril [Prinivil 10 mg Tablet] 10 mg PO DAILY #30 tablet 06/20/13 Spironolactone 25 mg PO DAILY #30 tablet 06/20/13 Carvedilol [Coreg 12.5 mg Tablet] 12.5 mg PO Q12 10/30/14 Montelukast Sodium [Singulair 10 mg Tablet] 10 mg PO QHS #30 tablet 11/03/14 Aspirin [Ecotrin 81 mg EC Tablet] 81 mg PO DAILY 02/21/20 Atorvastatin Calcium [Lipitor 20 mg Tablet] 20 mg PO QHS 02/21/20 Cyanocobalamin (Vitamin B-12) [Vitamin B-12 1000 Mcg Tablet] 2,000 mcg PO BID 02/21/20 Diclofenac Sodium 2 gm TOP QIDP PRN 02/21/20 Docusate Sodium [Colace 100 mg Capsule] 100 mg PO DAILY 02/21/20 Flecainide Acetate [Tambocor 100 mg Tablet] 100 mg PO DAILY 02/21/20 Hydrocodone/Acetaminophen [[place] 5-325 mg Tablet] 1 tab PO Q6HP PRN MDD filled 02/16 for 5 day supply 02/21/20 [place]-3 Fatty Acids/Fish Oil [[place] 3 Fish Oil Softgel] 1 each PO BID 02/21/20 Tizanidine HCl 4 mg PO Q8HP PRN 02/21/20 Allergies/Adverse Reactions: Penicillins Allergy (Severe, Verified 06/16/13 08:53) Anaphylaxis Tetanus Vaccines and Toxoid [Tetanus] Allergy (Severe, Verified 06/16/13 08:53) Anaphylaxis Review of Systems Constitutional: PRESENT: fever(s), weakness Eyes: ABSENT: visual disturbances Ears: ABSENT: hearing changes Nose, Mouth, and Throat: ABSENT: sore throat Cardiovascular: ABSENT: chest pain Respiratory: ABSENT: dyspnea Gastrointestinal: PRESENT: as per HPI, abdominal pain Genitourinary: ABSENT: dysuria Integumentary: ABSENT: rash Neurological: ABSENT: confusion, dizziness Hematologic/Lymphatic: ABSENT: easy bleeding Physical Exam Vital Signs: Temp Pulse Resp BP Pulse Ox 96.8 F L 61 23 H 115/64 99 02/23/20 05:00 02/22/20 23:00 02/23/20 06:59 02/23/20 06:19 02/23/20 06:59 Intake & Output 02/22/20 02/23/20 02/24/20 06:59 06:59 06:59 Intake Total 1380 3912 Output Total 970 1685 Balance 410 2227 Weight 114.2 kg 115.9 kg General appearance: PRESENT: no acute distress, obese Exam: 69 year old male. Head exam: PRESENT: atraumatic, normocephalic Eye exam: PRESENT: EOMI Mouth exam: PRESENT: moist Neck exam: ABSENT: JVD, tenderness Respiratory exam: PRESENT: clear to auscultation anshul, unlabored Cardiovascular exam: PRESENT: RRR GI/Abdominal exam: PRESENT: distended, firm, other - Midline incision covered. Extremities exam: ABSENT: pedal edema Musculoskeletal exam: PRESENT: normal inspection Neurological exam: PRESENT: alert, awake Psychiatric exam: PRESENT: appropriate affect Skin exam: PRESENT: normal color Results Laboratory Results: 02/23/20 04:00 02/22/20 06:01 02/22/20 02/22/20 02/22/20 06:01 08:35 08:55 WBC RBC Hgb Hct MCV MCH MCHC RDW Plt Count Seg Neutrophils % Carbonic Acid 1.08 HCO3/H2CO3 Ratio 22:1 ABG pH 7.45 ABG pCO2 35.8 ABG pO2 71.3 L ABG HCO3 24.1 H ABG O2 Saturation 95.1 ABG Base Excess 0.5 FiO2 30% Lactic Acid 1.0 Phosphorus Magnesium Total Bilirubin AST Alkaline Phosphatase Ammonia Total Protein Albumin Prostate Specific Ag TSH 1.32 02/22/20 02/22/20 02/22/20 08:55 08:55 13:20 WBC 15.0 H RBC 2.58 L Hgb 8.3 L D Hct 24.8 L MCV 96 MCH 32.0 MCHC 33.4 RDW 13.4 Plt Count 159 Seg Neutrophils % Carbonic Acid HCO3/H2CO3 Ratio ABG pH ABG pCO2 ABG pO2 ABG HCO3 ABG O2 Saturation ABG Base Excess FiO2 Lactic Acid Phosphorus Magnesium Total Bilirubin AST Alkaline Phosphatase Ammonia < 8.7 L Total Protein Albumin Prostate Specific Ag 4.840 H TSH 02/22/20 02/23/20 02/23/20 18:12 04:00 04:00 WBC 17.3 H 16.1 H RBC 3.10 L 2.96 L Hgb 10.0 L 9.6 L Hct 29.4 L 28.2 L MCV 95 95 MCH 32.2 32.4 MCHC 34.0 34.0 RDW 13.5 13.4 Plt Count 187 183 Seg Neutrophils % 84.3 H Carbonic Acid HCO3/H2CO3 Ratio ABG pH ABG pCO2 ABG pO2 ABG HCO3 ABG O2 Saturation ABG Base Excess FiO2 Lactic Acid Phosphorus 2.9 Magnesium 2.2 D Total Bilirubin AST Alkaline Phosphatase Ammonia Total Protein Albumin Prostate Specific Ag TSH 02/23/20 06:45 WBC RBC Hgb Hct MCV MCH MCHC RDW Plt Count Seg Neutrophils % Carbonic Acid HCO3/H2CO3 Ratio ABG pH ABG pCO2 ABG pO2 ABG HCO3 ABG O2 Saturation ABG Base Excess FiO2 Lactic Acid Phosphorus Magnesium Total Bilirubin 0.7 AST 27 Alkaline Phosphatase 118 Ammonia Total Protein 5.6 L Albumin 3.0 L Prostate Specific Ag TSH 02/21/20 02/21/20 02/21/20 16:15 19:29 19:29 CK-MB (CK-2) 1.34 Troponin I 1.170 0.926 NT-Pro-B Natriuret Pep 289 H 02/22/20 02/22/20 00:21 06:01 CK-MB (CK-2) 1.13 0.79 Troponin I 0.587 0.409 NT-Pro-B Natriuret Pep Impressions: Abdomen/Pelvis CT 02/21/20 14:37 IMPRESSION: 1. Increased size of the right lower lobe pulmonary nodule measuring 2.1 cm, previously 1.6 cm. Malignancy is highy suspected. PET-CT or tissue sampling should be considered 2. Dilated appendix with significant pericecal inflammatory change compatible with acute appendicitis. No focal drainable collection. Recommend surgical consultation. 3. Innumerable lucent osseous lesions suggestive neoplasm, likely metastatic disease versus multiple myeloma. Findings discussed with Dr. Gamble At 1519 hours on 02/21/2020. Chest X-Ray 02/22/20 00:00 IMPRESSION: Minimal bibasilar atelectasis with otherwise no acute disease. Status: Image reviewed by me Assessment & Plan - Diagnosis (1) Appendicitis Qualifiers: Appendicitis type: acute appendicitis Acute appendicitis type: with localized peritonitis Appendicitis gangrene presence: unspecified whether gangrene present Appendicitis perforation presence: with perforation Appendicitis abscess presence: with abscess Qualified Code(s): K35.33 - Acute appendicitis with perforation and localized peritonitis, with abscess Is this a current diagnosis for this admission?: Yes Plan: s/p appendectomy. Await final path to make sure no underlying cancer. (2) Lung nodules Is this a current diagnosis for this admission?: Yes Plan: Once patient has recovered, will plan CT guided biopsy of the lung mass. His PSA is mildly elevated. I am not convinced that now is the best time to check a CEA as it should be falsely elevated due to the appendicitis. Would prefer to wait for lung biopsy until patient has been discharged from hospital. - Plan Summary Plan Summary: Patient was discussed with Dr. Seay. I will be happy to continue to follow him with you.
--- NOTE | 2020-02-23 09:37 | PDOC PROGRESS REPORT ---
Subjective Progress Note for:: 02/23/20 Subjective:: Feels much better. Extubated. Abdominal pain much improved from preoperative state. Reason For Visit: RUPTURED APPENDIX,SEPSIS Physical Exam Vital Signs: Temp Pulse Resp BP Pulse Ox 96.6 F L 68 19 116/69 99 02/23/20 08:00 02/23/20 08:00 02/23/20 08:00 02/23/20 08:00 02/23/20 08:00 Intake & Output 02/22/20 02/23/20 02/24/20 06:59 06:59 06:59 Intake Total 1380 3912 Output Total 970 1685 250 Balance 410 2227 -250 Weight 114.2 kg 115.9 kg General appearance: PRESENT: no acute distress, cooperative Respiratory exam: PRESENT: wheezes Cardiovascular exam: PRESENT: RRR GI/Abdominal exam: PRESENT: other - Distended but soft, wound packing removed. Wound appears very clean. There is mild diffuse abdominal tenderness that is m arkedly improved from his preoperative exam. Extremities exam: PRESENT: other - No leg swelling or tenderness Results Laboratory Results: 02/23/20 04:00 02/22/20 06:01 02/22/20 02/22/20 02/22/20 08:55 08:55 08:55 WBC RBC Hgb Hct MCV MCH MCHC RDW Plt Count Seg Neutrophils % Lactic Acid 1.0 Phosphorus Magnesium Total Bilirubin AST Alkaline Phosphatase Ammonia < 8.7 L Total Protein Albumin Prostate Specific Ag 4.840 H 02/22/20 02/22/20 02/23/20 13:20 18:12 04:00 WBC 15.0 H 17.3 H 16.1 H RBC 2.58 L 3.10 L 2.96 L Hgb 8.3 L D 10.0 L 9.6 L Hct 24.8 L 29.4 L 28.2 L MCV 96 95 95 MCH 32.0 32.2 32.4 MCHC 33.4 34.0 34.0 RDW 13.4 13.5 13.4 Plt Count 159 187 183 Seg Neutrophils % 84.3 H Lactic Acid Phosphorus Magnesium Total Bilirubin AST Alkaline Phosphatase Ammonia Total Protein Albumin Prostate Specific Ag 02/23/20 02/23/20 04:00 06:45 WBC RBC Hgb Hct MCV MCH MCHC RDW Plt Count Seg Neutrophils % Lactic Acid Phosphorus 2.9 Magnesium 2.2 D Total Bilirubin 0.7 AST 27 Alkaline Phosphatase 118 Ammonia Total Protein 5.6 L Albumin 3.0 L Prostate Specific Ag 02/21/20 02/21/20 02/21/20 16:15 19:29 19:29 CK-MB (CK-2) 1.34 Troponin I 1.170 0.926 NT-Pro-B Natriuret Pep 289 H 02/22/20 02/22/20 00:21 06:01 CK-MB (CK-2) 1.13 0.79 Troponin I 0.587 0.409 NT-Pro-B Natriuret Pep Impressions: Abdomen/Pelvis CT 02/21/20 14:37 IMPRESSION: 1. Increased size of the right lower lobe pulmonary nodule measuring 2.1 cm, previously 1.6 cm. Malignancy is highy suspected. PET-CT or tissue sampling should be considered 2. Dilated appendix with significant pericecal inflammatory change compatible with acute appendicitis. No focal drainable collection. Recommend surgical consultation. 3. Innumerable lucent osseous lesions suggestive neoplasm, likely metastatic disease versus multiple myeloma. Findings discussed with Dr. Gamble At 1519 hours on 02/21/2020. Chest X-Ray 02/22/20 00:00 IMPRESSION: Minimal bibasilar atelectasis with otherwise no acute disease. Assessment & Plan - Diagnosis (1) Appendicitis Qualifiers: Appendicitis type: acute appendicitis Acute appendicitis type: with locali zed peritonitis Appendicitis gangrene presence: unspecified whether gangrene present Appendicitis perforation presence: with perforation Appendicitis abscess presence: with abscess Qualified Code(s): K35.33 - Acute appendicitis with perforation and localized peritonitis, with abscess Is this a current diagnosis for this admission?: Yes Plan: Patient looks good after his partial colon resection for complicated appendicitis. Await bowel function. Likely will transfer patient out of the unit tomorrow provided he continues to do well. Out of bed today. (2) Lung nodules Is this a current diagnosis for this admission?: Yes (3) Elevated troponin Is this a current diagnosis for this admission?: Yes
[2020-02-23] MEDS: PANTOPRAZOLE SODIUM 40 MG VIAL IV SCH (09:59)
[2020-02-23] MEDS: FENTANYL CITRATE INJ/PF 100 MCG/2 ML AMPUL IV PRN ×3 (09:59→19:47)
[2020-02-23] MEDS: FLECAINIDE ACETATE 100 MG TABLET PO SCH (11:11)
[2020-02-23] MEDS ORDERED: METHOCARBAMOL 500 MG in DEXTROSE 5%-WATER 50 ML IV PRN (15:22)
--- NOTE | 2020-02-23 15:45 | Progress Note ---
Provider Note Provider Note: CARDIOLOGY PROGRESS NOTE by Dr. Bladimir Jerome on 02/23/2020. SUBJECTIVE: The patient's been extubated. He is on a nasal BiPAP. He states he feels a little congested but once he coughs he cleared his lungs. He denies any shortness of breath. There is no PND orthopnea or leg edema. There is no recurrence of atrial fibrillation. There is no ventricular arrhythmias seen. The patient denies any chest pain or discomfort. He is tolerating flecainide. He has been seen by oncology and they are planning a biopsy of the lung mass. PHYSICAL EXAMINATION: The patient is morbidly obese. In no acute distress. Selected Entries 02/23/20 02/23/20 02/23/20 08:00 08:03 08:04 Core 96.6 F L Temperature Heart Rate ( 69 Monitors) Respiratory 19 Rate Blood Pressure 133/64 H Blood Pressure 87 Mean O2 Sat by Pulse 100 Oximetry Fraction of 40 Inspired Oxygen (FIO2) Oxygen Flow 2 Rate HEAD: Is atraumatic normocephalic. EYES: Pupils are equal round regular reactive light accommodation. ENT is negative NECK: Is supple. There is no JVD. Carotids are equal there is no bruits. There is no lymphadenopathy. There is no goiter. There is no accessory muscle respiration use. LUNGS: There is diminished air entry prolonged expiration. There is no rhonchi rales or wheezing. On percussion there is hyperresonance. HEART: S1-S2 is heard. There is no S3 gallop there is no S4 gallop. There is systolic murmur left sternal border and the apex. There is no rub. ABDOMEN: Is obese. Mildly distended. Bowel sounds are absent. Surgical dressing is dry and clean.. EXTREMITIES femorals are diminished there is no femoral bruits. Leg pulses are diminished. There is no pedal edema. There is no DVT or cellulitis. There is no calf tenderness. There is no cyanosis or clubbing. LINE INSPECTOR: The patient is conscious awake oriented x3 with no focal deficit. PSYCHIATRIC: Patient judgment insight are intact his affect is normal. Labs- All tests 24 hr 02/23/20 02/23/20 02/23/20 04:00 04:00 06:23 WBC 16.1 H RBC 2.96 L Hgb 9.6 L Hct 28.2 L MCV 95 MCH 32.4 MCHC 34.0 RDW 13.4 Plt Count 183 Lymph % (Auto) 6.9 L Rhea % (Auto) 8.8 Eos % (Auto) 0.0 Baso % (Auto) 0.0 Absolute Neuts (auto) 13.6 H Absolute Lymphs (auto) 1.1 Absolute Monos (auto) 1.4 Absolute Eos (auto) 0.0 Absolute Basos (auto) 0.0 Seg Neutrophils % 84.3 H POC Glucose 141 H Phosphorus 2.9 Magnesium 2.2 D Total Bilirubin Direct Bilirubin Neonat Total Bilirubin Neonat Direct Bilirubin Neonat Indirect Bili AST ALT Alkaline Phosphatase Total Protein Albumin 02/23/20 02/23/20 02/23/20 06:45 13:03 18:23 WBC RBC Hgb Hct MCV MCH MCHC RDW Plt Count Lymph % (Auto) Rhea % (Auto) Eos % (Auto) Baso % (Auto) Absolute Neuts (auto) Absolute Lymphs (auto) Absolute Monos (auto) Absolute Eos (auto) Absolute Basos (auto) Seg Neutrophils % POC Glucose 111 H 109 Phosphorus Magnesium Total Bilirubin 0.7 Direct Bilirubin 0.1 Neonat Total Bilirubin Not Reportable Neonat Direct Bilirubin Not Reportable Neonat Indirect Bili Not Reportable AST 27 ALT 30 Alkaline Phosphatase 118 Total Protein 5.6 L Albumin 3.0 L Abdomen/Pelvis CT 02/21/20 14:37 IMPRESSION: 1. Increased size of the right lower lobe pulmonary nodule measuring 2.1 cm, previously 1.6 cm. Malignancy is highy suspected. PET-CT or tissue sampling should be considered 2. Dilated appendix with significant pericecal inflammatory change compatible with acute appendicitis. No focal drainable collection. Recommend surgical consultation. 3. Innumerable lucent osseous lesions suggestive neoplasm, likely metastatic disease versus multiple myeloma. Findings discussed with Dr. Gamble At 1519 hours on 02/21/2020. Chest X-Ray 02/22/20 00:00 IMPRESSION: Minimal bibasilar atelectasis with otherwise no acute disease. IMPRESSION/RECOMMENDATION: 1. Elevated troponin I secondary to supply demand mismatch. This is due to the patient's acute appendicitis. No evidence of acute coronary syndrome or non-ST elevation OR. The patient's troponin is trended down. There are no acute EKG changes. 2. Acute appendicitis. S/p surgery. The patient has a phlegmon and an ruptured appendiceal abscess. 3. No evidence of acute coronary syndrome. The patient has no anginal symptoms. The patient on 10/25/2019 has had a negative Cardiolite stress test. Also he has no known history of coronary artery disease. 4. History of paroxysmal l atrial fibrillation: Would recommend continuing the patient's flecainide to prevent the patient reverting back into atrial fibrillation. Agree with stopping Levaquin since the possibility of prolonged QT interval causing ventricular arrhythmias. 5. Hypomagnesemia: Replace magnesium. 6. Hypertension: BP well controlled 7. Hyperlipidemia. 8. COPD: Without exacerbation. 8. Most likely lung cancer with bony mets. This needs to be worked up later. 9. Prior history of cardiomyopathy. The patient's echo in September 2019 showed LV ejection fraction 65 to 70%. Medications reviewed. Medication recommendations, medical regimen and managemen t plan discussed with automation control integrator. Medical decision making is of high complexity. 40 minutes spent with patient with more than 50% of time spent in direct patient care. Will follow
[2020-02-23] MEDS ORDERED: FENTANYL CITRATE INJ/PF 100 MCG/2 ML AMPUL IV ONE (16:00)
[2020-02-23] MEDS: METHOCARBAMOL INJ/PF 1000 MG/10 ML SDV IV PRN ×2 (16:43→23:49)
[2020-02-23] MEDS ORDERED: VANCOMYCIN HCL 0 MG in DEXTROSE 5%-WATER 250 ML IV NR (17:15)
--- NOTE | 2020-02-23 17:27 | PDOC CRITICAL CARE PROG REPORT ---
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 He had had intermittent tachycardia which responded to his flecainide. In the graphic illustrator he self extubated and did not require reintubation. Review of systems relevant to events:: 02.23.2020: Wake up patient had hypotension approximately 30 to 45 minutes after starting meropenem. Of note his cortisol level was 4.5 but in concern for possible reaction to antibiotic he was transitioned to Azactam. Gram-negative's were noted on initial wound peritoneal cultures. He did not have any airway compromise erythema or swelling during the instillation of antibiotics. Microbiological studies on peritoneal cultures show Enterobacter cloaca K which interestingly was resistant to levoFloxin and Cipro but sensitive to aztreonam. Reason for ICU Addmission:: Sepsis, COPD - Medications: Medications reviewed and adjusted accordingly: Yes Sedation:: None Physical Exam Vital Signs: Temp Pulse Resp BP Pulse Ox 96.8 F L 61 23 H 115/64 99 02/23/20 05:00 02/22/20 23:00 02/23/20 06:59 02/23/20 06:19 02/23/20 06:59 Intake & Output 02/22/20 02/23/20 02/24/20 06:59 06:59 06:59 Intake Total 1380 3912 Output Total 970 1685 Balance 410 2227 Weight 114.2 kg 115.9 kg Weight/Height Weight 115.9 kg Height 5 ft 7 in General appearance: PRESENT: no acute distress, cooperative, morbidly obese Exam: Nonintubated chronically ill-appearing 69-year-old male no active distress. He is awake alert oriented x4 Eye exam: PRESENT: conjunctiva pink, EOMI, PERRLA. ABSENT: nystagmus, scleral icterus Mouth exam: PRESENT: dry mucosa, neck supple Neck exam: ABSENT: carotid bruit, JVD, lymphadenopathy, thyromegaly, tracheal deviation Respiratory exam: PRESENT: decreased breath sounds - At bases, other - During additional examination patient developed coughing and had good clearance of airway.. ABSENT: accessory muscle use, retraction, tachypnea, unlabored Cardiovascular exam: PRESENT: RRR, +S1, +S2 Pulses: PRESENT: +1 pedal pulses bilateral GI/Abdominal exam: PRESENT: diminished bowel sounds, firm, hypoactive bowel sounds, tenderness - Near incision site. ABSENT: guarding, rigid Gentrourinary exam: PRESENT: indwelling catheter Extremities exam: PRESENT: +1 edema Musculoskeletal exam: ABSENT: deformity, dislocation Neurological exam: PRESENT: awake, oriented to person, oriented to place, oriented to time, oriented to situation, CN II-XII grossly intact. ABSENT: motor sensory deficit Psychiatric exam: PRESENT: anxious Focused psych exam: ABSENT: pressured speech, psychomotor agitation, restlessness Skin exam: PRESENT: dry, intact, warm. ABSENT: cyanosis, rash Tubes/Lines: PRESENT: Nasogastic Tube, Other - Ross type urinary catheter Laboratory/Radiographs Laboratory Results: 02/23/20 04:00 02/22/20 06:01 02/22/20 02/22/20 02/22/20 06:01 08:35 08:55 WBC RBC Hgb Hct MCV MCH MCHC RDW Plt Count Seg Neutrophils % Carbonic Acid 1.08 HCO3/H2CO3 Ratio 22:1 ABG pH 7.45 ABG pCO2 35.8 ABG pO2 71.3 L ABG HCO3 24.1 H ABG O2 Saturation 95.1 ABG Base Excess 0.5 FiO2 30% Lactic Acid 1.0 Phosphorus Magnesium Total Bilirubin AST Alkaline Phosphatase Ammonia Total Protein Albumin Prostate Specific Ag TSH 1.32 02/22/20 02/22/20 02/22/20 08:55 08:55 13:20 WBC 15.0 H RBC 2.58 L Hgb 8.3 L D Hct 24.8 L MCV 96 MCH 32.0 MCHC 33.4 RDW 13.4 Plt Count 159 Seg Neutrophils % Carbonic Acid HCO3/H2CO3 Ratio ABG pH ABG pCO2 ABG pO2 ABG HCO3 ABG O2 Saturation ABG Base Excess FiO2 Lactic Acid Phosphorus Magnesium Total Bilirubin AST Alkaline Phosphatase Ammonia < 8.7 L Total Protein Albumin Prostate Specific Ag 4.840 H TSH 02/22/20 02/23/20 02/23/20 18:12 04:00 04:00 WBC 17.3 H 16.1 H RBC 3.10 L 2.96 L Hgb 10.0 L 9.6 L Hct 29.4 L 28.2 L MCV 95 95 MCH 32.2 32.4 MCHC 34.0 34.0 RDW 13.5 13.4 Plt Count 187 183 Seg Neutrophils % 84.3 H Carbonic Acid HCO3/H2CO3 Ratio ABG pH ABG pCO2 ABG pO2 ABG HCO3 ABG O2 Saturation ABG Base Excess FiO2 Lactic Acid Phosphorus 2.9 Magnesium 2.2 D Total Bilirubin AST Alkaline Phosphatase Ammonia Total Protein Albumin Prostate Specific Ag TSH 02/23/20 06:45 WBC RBC Hgb Hct MCV MCH MCHC RDW Plt Count Seg Neutrophils % Carbonic Acid HCO3/H2CO3 Ratio ABG pH ABG pCO2 ABG pO2 ABG HCO3 ABG O2 Saturation ABG Base Excess FiO2 Lactic Acid Phosphorus Magnesium Total Bilirubin 0.7 AST 27 Alkaline Phosphatase 118 Ammonia Total Protein 5.6 L Albumin 3.0 L Prostate Specific Ag TSH 02/21/20 02/21/20 02/21/20 16:15 19:29 19:29 CK-MB (CK-2) 1.34 Troponin I 1.170 0.926 NT-Pro-B Natriuret Pep 289 H 02/22/20 02/22/20 00:21 06:01 CK-MB (CK-2) 1.13 0.79 Troponin I 0.587 0.409 NT-Pro-B Natriuret Pep Impressions: Abdomen/Pelvis CT 02/21/20 14:37 IMPRESSION: 1. Increased size of the right lower lobe pulmonary nodule measur ing 2.1 cm, previously 1.6 cm. Malignancy is highy suspected. PET-CT or tissue sampling should be considered 2. Dilated appendix with significant pericecal inflammatory change compatible with acute appendicitis. No focal drainable collection. Recommend surgical consultation. 3. Innumerable lucent osseous lesions suggestive neoplasm, likely metastatic disease versus multiple myeloma. Findings discussed with Dr. Gamble At 1519 hours on 02/21/2020. Chest X-Ray 02/22/20 00:00 IMPRESSION: Minimal bibasilar atelectasis with otherwise no acute disease. All labs, radiographs, diagnostic studies and EKGs were personally reviewed: Yes In addition, reports of radiographic and diagnostic studies were read: Yes Assessment and Plan - Diagnosis (1) Sepsis with encephalopathy and septic shock Is this a current diagnosis for this admission?: Yes Plan: Due to enterobacter cloacae and anerobes (2) Peritonitis with abscess of intestine Is this a current diagnosis for this admission?: Yes (3) Enterobacter sepsis Is this a current diagnosis for this admission?: Yes (4) Adrenal insufficiency Is this a current diagnosis for this admission?: Yes (5) Post-operative state Is this a current diagnosis for this admission?: Yes (6) Post-operative pain Is this a current diagnosis for this admission?: Yes (7) Self extubation Is this a current diagnosis for this admission?: Yes (8) Encounter for weaning from ventilator Is this a current diagnosis for this admission?: Yes (9) Obesity hypoventilation syndrome Is this a current diagnosis for this admission?: Yes Plan Summary: Respiratory: Patient's respiratory status is somewhat tenuous given his size, obesity and recent surgery. He has been transition off BiPAP this morning and will place him on high flow during the day to maintain open lung ventilation. Have placed him on BiPAP at night. We will continue to monitor for any respiratory decline. Infectious: Patient has gram-positive gram-negative and anaerobic organisms growing in his peritoneal culture. Have added vancomycin to the armamentarium. Continue to monitor for worsening peritonitis. He does have abdominal pain from the surgery and will need to be vigilant to watch for abscess formation. Gram- negative's are sensitive to aztreonam and he had was started on this yesterday. As far as a potential allergy to meropenem this does not appear to be the case however given the complexity of his hypotension yesterday we will transition to aztreonam. Cardiac: Patient's blood pressure has improved and I have reinstituted his lisinopril. Will reduce steroids to 50 mg every 8 with goal of diurnal zoroastrian. He is on his flecainide and is heart rate is acceptable. Beta- roel has been restarted. He is no longer hypotensive or in shock. Hematologic/oncologic: Continue to monitor white count. White count elevation secondary to surgery and steroid use. This should resolve in the next 3 to 4 days. Patient has what appears to be metastatic disease without known primary. PSA is elevated but not significantly. He does have lung masses which may be amenable to biopsy. Discussed with oncology who will be following up with him for outpatient evaluation. Endocrine: Patient has relative adrenal insufficiency with a cortisol level 4 in the face of shock. His blood pressure has improved with initiation of steroid therapy. Will reduce to 50 mg every 8 with the goal being a physiologic diurnal pattern. Physiologically 75% would be in the morning and 25% at night. Given the reduction in his cortisol level on admission would move slowly. This also may be indicative of adrenal infiltration by malignancy. Renal: Despite shock like state and overall illness patient's renal function has remained stable without any change in GFR. Continue LR or balance pH solution IV fluids until he can take p.o. Metabolic: Continue to monitor electrolyte status. Continue to replace and monitor accordingly Alimentary: Patient has secondary peritonitis secondary to abscess from ruptured appendiceal inflammation. Continue to monitor abdominal pain and watch for worsening distention which may compromise patient's respiratory status. Neurologic: Sedation has been weaned off. Controlling for pain. Sedation/analgesia: Fentanyl PRN for pain Lines/Tubes: Peripheral IVs, NG tube Ross catheter Other: Patient requires continued ICU care secondary to is arrhythmogenic potential, respiratory status and peritonitis. Critical Time Critical Time (minutes): 40 Level of Care: ICU Anticipated discharge: Acute Rehab Within: within 72 hours -: 1. The care of a critical patient is a dynamic process. This note is a employment program representative synopsis but static in nature. The timeframe for treatments given in order is not necessarily the actual time these treatments may have been done. 2. This patient requires critical care secondary to ongoing requirements for therapy not offered or safe outside the critical care environment. Transfer to a lower level of care will result in altered life or limb morbidity and mortality. 3. Multidisciplinary rounds completed. 4. ABCDE bundle addressed.
[2020-02-23] MEDS: VANCOMYCIN HCL 1,500 MG in DEXTROSE 5%-WATER 250 ML IV SCH (21:14)
[2020-02-23] MEDS: ACETAMINOPHEN 325 MG TABLET PO PRN (21:23)
[2020-02-23] MEDS: ATORVASTATIN CALCIUM 20 MG TABLET PO SCH (23:28)
[2020-02-23] MEDS: MONTELUKAST SODIUM 10 MG TABLET PO SCH (23:28)
[2020-02-24] MEDS ORDERED: CARVEDILOL 12.5 MG TABLET PO ONE (00:56)
[2020-02-24] MEDS ORDERED: CARVEDILOL 6.25 MG TABLET ONE (01:00)
[2020-02-24] MEDS ORDERED: METOPROLOL TARTRATE PF/INJ 5 MG/5 ML SDV IV ONE ×5 (01:20→05:18)
[2020-02-24 01:36] LABS: ALK PHOS BONE FRACTION 28 % (12-68); ALK PHOS LIVER FRACTION 72 % (13-88); ALKALINE PHOSPHATASE TOTAL 169 IU/L (39-117)
[2020-02-24] MEDS: FENTANYL CITRATE INJ/PF 100 MCG/2 ML AMPUL IV PRN ×2 (02:57→07:36)
[2020-02-24] MEDS: METRONIDAZOLE 500 MG/NS RTU 500 MG/100 ML RTUPB IV SCH ×4 (03:46→21:33)
[2020-02-24 04:40] LABS: ABSOLUTE LYMPHOCYTES (AUTO) 1.6 10^3/uL (0.5-4.7); ABSOLUTE MONOCYTES (AUTO) 1.7 10^3/uL (0.1-1.4); ABSOLUTE NEUT (AUTO) 16.4 10^3/uL (1.7-8.2); BASOPHILS % (AUTO) 0.1 % (0-2); EOSINOPHILS % (AUTO) 0.1 % (0-6); HEMATOCRIT 32.8 % (37.9-51.0); LYMPHOCYTES % (AUTO) 8.1 % (13-45); MEAN CORPUSCULAR HEMOGLOBIN 31.7 pg (27.0-33.4); MEAN CORPUSCULAR HGB CONC 33.7 g/dL (32.0-36.0); MEAN CORPUSCULAR VOLUME 94 fl (80-97); MONOCYTES % (AUTO) 8.8 % (3-13); PLATELET COUNT 260 10^3/uL (150-450); RED BLOOD COUNT 3.48 10^6/uL (4.35-5.55); RED CELL DISTRIBUTION WIDTH 13.7 % (11.5-14.0); SEGMENTED NEUTROPHILS % (AUTO) 82.9 % (42-78); TOTAL CELLS COUNTED % (AUTO) 100 %; WHITE BLOOD COUNT 19.8 10^3/uL (4.0-10.5)
[2020-02-24 04:55] LABS: ANION GAP 9 (5-19); BLOOD UREA NITROGEN 27 mg/dL (7-20); CALCIUM 9.7 mg/dL (8.4-10.2); CARBON DIOXIDE 24 mmol/L (22-30); CHLORIDE 106 mmol/L (98-107); GLUCOSE 114 mg/dL (75-110); POTASSIUM 3.4 mmol/L (3.6-5.0)
[2020-02-24] MEDS: HYDROCORTISONE SOD SUCCINATE INJ/PF 100 MG/2 ML SDV IV SCH ×3 (05:41→22:57)
[2020-02-24] MEDS: HEPARIN SOD (PORCINE) 5,000 UNIT/ML 1 ML VIAL SUBCUT SCH ×3 (05:41→22:57)
[2020-02-24] MEDS: AZTREONAM 2 GM in DEXTROSE 5%-WATER 100 ML IV SCH ×3 (05:42→22:57)
[2020-02-24] MEDS: VANCOMYCIN HCL 1,500 MG in DEXTROSE 5%-WATER 250 ML IV SCH ×2 (07:35→20:11)
[2020-02-24] MEDS: LISINOPRIL 10 MG TABLET PO SCH (09:12)
[2020-02-24] MEDS: FLECAINIDE ACETATE 100 MG TABLET PO SCH (09:14)
--- NOTE | 2020-02-24 09:27 | PDOC PROGRESS REPORT ---
Subjective Progress Note for:: 02/24/20 Subjective:: Patient is in more discomfort today. He states that he did not get any sleep last night. His NG tube had to be replaced. Pain has increased but nausea improved after NG was replaced. He is passing some gas, but very little. He is not yet drinking, but only had a few sips of water with placement of the NG. ROS: He denies dyspnea. No headaches or pain other than abdomen. Reason For Visit: RUPTURED APPENDIX,SEPSIS Physical Exam Vital Signs: Temp Pulse Resp BP Pulse Ox 99.0 F 115 H 24 H 125/92 H 98 02/24/20 05:23 02/23/20 23:00 02/24/20 08:09 02/24/20 08:09 02/24/20 08:09 Intake & Output 02/23/20 02/24/20 02/25/20 06:59 06:59 06:59 Intake Total 3912 2573 Output Total 1685 3985 100 Balance 2227 -1412 -100 Weight 115.9 kg 118.2 kg General appearance: PRESENT: no acute distress, obese Exam: Tachy and irregular. Head exam: PRESENT: atraumatic Respiratory exam: PRESENT: decreased breath sounds Cardiovascular exam: PRESENT: irregular rhythm, tachycardia GI/Abdominal exam: PRESENT: distended, firm Extremities exam: ABSENT: pedal edema Neurological exam: PRESENT: alert, awake Skin exam: PRESENT: normal color Results Laboratory Results: 02/24/20 04:13 02/24/20 04:13 02/24/20 02/24/20 04:13 04:13 WBC 19.8 H RBC 3.48 L Hgb 11.0 L Hct 32.8 L MCV 94 MCH 31.7 MCHC 33.7 RDW 13.7 Plt Count 260 Seg Neutrophils % 82.9 H Sodium 139.1 Potassium 3.4 L Chloride 106 Carbon Dioxide 24 Anion Gap 9 BUN 27 H Creatinine 0.74 Est GFR ( Amer) > 60 Glucose 114 H Calcium 9.7 Phosphorus 3.0 Magnesium 2.1 02/21/20 20:32 Peritoneal Gram Stain - Final 02/21/20 20:32 Peritoneal Wound Culture - Final Enterobacter Cloacae Streptococcus Salivarius Peptostreptococcus Species Bacteroides Fragilis Group 02/21/20 14:40 Clean Catch Midstream Urine Culture - Final Mixed Urogenital [place] 0602/21/20 02/21/20 16:15 19:29 19:29 CK-MB (CK-2) 1.34 Troponin I 1.170 0.926 NT-Pro-B Natriuret Pep 289 H 02/22/20 02/22/20 00:21 06:01 CK-MB (CK-2) 1.13 0.79 Troponin I 0.587 0.409 NT-Pro-B Natriuret Pep Impressions: Abdomen/Pelvis CT 02/21/20 14:37 IMPRESSION: 1. Increased size of the right lower lobe pulmonary nodule measuring 2.1 cm, previously 1.6 cm. Malignancy is highy suspected. PET-CT or tissue sampling should be considered 2. Dilated appendix with significant pericecal inflammatory change compatible with acute appendicitis. No focal drainable collection. Recommend surgical consultation. 3. Innumerable lucent osseous lesions suggestive neoplasm, likely metastatic disease versus multiple myeloma. Findings discussed with Dr. Gamble At 1519 hours on 02/21/2020. Chest X-Ray 02/22/20 00:00 IMPRESSION: Minimal bibasilar atelectasis with otherwise no acute disease. Assessment & Plan - Diagnosis (1) Appendicitis Qualifiers: Appendicitis type: acute appendicitis Acute appendicitis type: with localized peritonitis Appendicitis gangrene presence: unspecified whether gangrene present Appendicitis perforation presence: with perforation Appendicitis abscess presence: with abscess Qualified Code(s): K35.33 - Acute appendicitis with perforation and localized peritonitis, with abscess Is this a current diagnosis for this admission?: Yes Plan: Still recovering. (2) Lung nodules Is this a current diagnosis for this admission?: Yes Plan: Plan further work-up after discharge. I will follow from a distance. Please call with any concerns. - Time Time Spent with patient: Less than 15 minutes
--- NOTE | 2020-02-24 09:30 | PDOC PROGRESS REPORT ---
Subjective Progress Note for:: 02/24/20 Subjective:: Patient had some chest pain last night but has since resolved. Feels okay. States that his abdominal exam is improved from his preoperative state. Has some pain at the midline. Has passed some gas. Reason For Visit: RUPTURED APPENDIX,SEPSIS Physical Exam Vital Signs: Temp Pulse Resp BP Pulse Ox 99.0 F 115 H 24 H 125/92 H 98 02/24/20 05:23 02/23/20 23:00 02/24/20 08:09 02/24/20 08:09 02/24/20 08:09 Intake & Output 02/23/20 02/24/20 02/25/20 06:59 06:59 06:59 Intake Total 3912 2573 Output Total 1685 3985 100 Balance 2227 -1412 -100 Weight 115.9 kg 118.2 kg General appearance: PRESENT: no acute distress, cooperative Respiratory exam: PRESENT: rhonchi Cardiovascular exam: PRESENT: irregular rhythm GI/Abdominal exam: PRESENT: other - Mildly distended, but soft, very mild the right lower quadrant abdominal tenderness that is much improved from his preoperative exam. Some tenderness at his midline. Neurological exam: PRESENT: awake Psychiatric exam: PRESENT: appropriate affect Results Laboratory Results: 02/24/20 04:13 02/24/20 04:13 02/24/20 02/24/20 04:13 04:13 WBC 19.8 H RBC 3.48 L Hgb 11.0 L Hct 32.8 L MCV 94 MCH 31.7 MCHC 33.7 RDW 13.7 Plt Count 260 Seg Neutrophils % 82.9 H Sodium 139.1 Potassium 3.4 L Chloride 106 Carbon Dioxide 24 Anion Gap 9 BUN 27 H Creatinine 0.74 Est GFR ( Amer) > 60 Glucose 114 H Calcium 9.7 Phosphorus 3.0 Magnesium 2.1 02/21/20 20:32 Peritoneal Gram Stain - Final 02/21/20 20:32 Peritoneal Wound Culture - Final Enterobacter Cloacae Streptococcus Salivarius Peptostreptococcus Species Bacteroides Fragilis Group 02/21/20 14:40 Clean Catch Midstream Urine Culture - Final Mixed Urogenital [place] 02/21/20 02/21/20 02/21/20 16:15 19:29 19:29 CK-MB (CK-2) 1.34 Troponin I 1.170 0.926 NT-Pro-B Natriuret Pep 289 H 02/22/20 02/22/20 00:21 06:01 CK-MB (CK-2) 1.13 0.79 Troponin I 0.587 0.409 NT-Pro-B Natriuret Pep Impressions: Abdomen/Pelvis CT 02/21/20 14:37 IMPRESSION: 1. Increased size of the right lower lobe pulmonary nodule measur ing 2.1 cm, previously 1.6 cm. Malignancy is highy suspected. PET-CT or tissue sampling should be considered 2. Dilated appendix with significant pericecal inflammatory change compatible with acute appendicitis. No focal drainable collection. Recommend surgical consultation. 3. Innumerable lucent osseous lesions suggestive neoplasm, likely metastatic disease versus multiple myeloma. Findings discussed with Dr. Gamble At 1519 hours on 02/21/2020. Chest X-Ray 02/22/20 00:00 IMPRESSION: Minimal bibasilar atelectasis with otherwise no acute disease. Assessment & Plan - Diagnosis (1) Appendicitis Qualifiers: Qualified Code(s): K35.33 - Acute appendicitis with perforation and localized peritonitis, with abscess Is this a current diagnosis for this admission?: Yes Plan: Status post partial colon resection for appendiceal phlegmon and abscess. Abdominal exam looks reasonable this morning with no peritoneal signs and only mild tenderness in the right lower quadrant. However, patient went into atrial fib with a rapid ventricular rate last night. Had some chest pain as well. I have discussed his case with Dr. Vargas who will see the patient this morning. Continue NG tube for right now until his distention is improved and he has better bowel function. Potassium supplementation written for. Continue an tibiotic therapy. (2) Lung nodules Is this a current diagnosis for this admission?: Yes (3) Elevated troponin Is this a current diagnosis for this admission?: Yes
[2020-02-24] MEDS ORDERED: PANTOPRAZOLE SODIUM 40 MG VIAL IV SCH (10:00)
[2020-02-24] MEDS: RINGERS SOLUTION,LACTATED 1,000 ML IV PRN ×3 (10:46→19:00)
[2020-02-24] MEDS: POTASSI CL 20 MEQ/50 ML RIDER 20 MEQ/50 ML RTUPB IV SCH ×2 (10:46→12:18)
--- NOTE | 2020-02-24 11:06 | PDOC CRITICAL CARE PROG REPORT ---
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 Nearl ready for downgrade. Review of systems relevant to events:: Pulmonary, GI, CV. Reason for ICU Addmission:: Sepsis, COPD, on bipap and at risk for reintubation. Rapid Afib. - Medications: Medications reviewed and adjusted accordingly: Yes Vasopressors:: None Sedation:: None Physical Exam Vital Signs: Temp Pulse Resp BP Pulse Ox 99.0 F 115 H 22 H 129/78 H 98 02/24/20 05:23 02/23/20 23:00 02/24/20 10:00 02/24/20 09:24 02/24/20 10:00 Intake & Output 02/23/20 02/24/20 02/25/20 06:59 06:59 06:59 Intake Total 3912 2573 Output Total 1685 3985 175 Balance 2227 -1412 -175 Weight 115.9 kg 118.2 kg Weight/Height Weight 118.2 kg Height 5 ft 7 in General appearance: PRESENT: no acute distress, morbidly obese, well-developed, well-nourished Head exam: PRESENT: atraumatic, normocephalic Eye exam: PRESENT: conjunctiva pink, EOMI, PERRLA. ABSENT: scleral icterus Ear exam: PRESENT: normal external ear exam Mouth exam: PRESENT: moist, tongue midline Respiratory exam: PRESENT: clear to auscultation anshul, decreased breath sounds. ABSENT: rales, rhonchi, wheezes Cardiovascular exam: PRESENT: tachycardia GI/Abdominal exam: PRESENT: normal bowel sounds, soft. ABSENT: distended, guarding, mass, organolmegaly, rebound, tenderness Rectal exam: PRESENT: deferred Gentrourinary exam: PRESENT: indwelling catheter Extremities exam: PRESENT: full ROM. ABSENT: calf tenderness, clubbing, pedal edema Musculoskeletal exam: PRESENT: normal inspection Neurological exam: PRESENT: alert, awake, oriented to person, oriented to place, oriented to time, oriented to situation, CN II-XII grossly intact. ABSENT: motor sensory deficit Skin exam: PRESENT: dry, intact, warm. ABSENT: cyanosis, rash Tubes/Lines: PRESENT: Nasogastic Tube Laboratory/Radiographs Laboratory Results: 02/24/20 04:13 02/24/20 04:13 02/24/20 02/24/20 04:13 04:13 WBC 19.8 H RBC 3.48 L Hgb 11.0 L Hct 32.8 L MCV 94 MCH 31.7 MCHC 33.7 RDW 13.7 Plt Count 260 Seg Neutrophils % 82.9 H Sodium 139.1 Potassium 3.4 L Chloride 106 Carbon Dioxide 24 Anion Gap 9 BUN 27 H Creatinine 0.74 Est GFR ( Amer) > 60 Glucose 114 H Calcium 9.7 Phosphorus 3.0 Magnesium 2.1 02/21/20 20:32 Peritoneal Gram Stain - Final 02/21/20 20:32 Peritoneal Wound Culture - Final Enterobacter Cloacae Streptococcus Salivarius Peptostreptococcus Species Bacteroides Fragilis Group 02/21/20 14:40 Clean Catch Midstream Urine Culture - Final Mixed Urogenital [place] 02/21/20 02/21/20 02/21/20 16:15 19:29 19:29 CK-MB (CK-2) 1.34 Troponin I 1.170 0.926 NT-Pro-B Natriuret Pep 289 H 02/22/20 02/22/20 00:21 06:01 CK-MB (CK-2) 1.13 0.79 Troponin I 0.587 0.409 NT-Pro-B Natriuret Pep Impressions: Abdomen/Pelvis CT 02/21/20 14:37 IMPRESSION: 1. Increased size of the right lower lobe pulmonary nodule measuring 2.1 cm, previously 1.6 cm. Malignancy is highy suspected. PET-CT or tissue sampling should be considered 2. Dilated appendix with significant pericecal inflammatory change compatible with acute appendicitis. No focal drainable collection. Recommend surgical c onsultation. 3. Innumerable lucent osseous lesions suggestive neoplasm, likely metastatic disease versus multiple myeloma. Findings discussed with Dr. Gamble At 1519 hours on 02/21/2020. Chest X-Ray 02/22/20 00:00 IMPRESSION: Minimal bibasilar atelectasis with otherwise no acute disease. All labs, radiographs, diagnostic studies and EKGs were personally reviewed: Yes In addition, reports of radiographic and diagnostic studies were read: Yes Assessment and Plan - Diagnosis (1) Appendicitis Qualifiers: Appendicitis type: acute appendicitis Acute appendicitis type: with localized peritonitis Appendicitis gangrene presence: unspecified whether gangrene present Appendicitis perforation presence: with perforation Appendicitis abscess presence: with abscess Qualified Code(s): K35.33 - Acute appendicitis with perforation and localized peritonitis, with abscess Is this a current diagnosis for this admission?: Yes Plan: Resolved with surgery (2) Lung nodules Is this a current diagnosis for this admission?: Yes Plan: Dr. Porter aware and he will need an evaluation and biopsy at a later date after recovery fron OR (3) HAIDER (obstructive sleep apnea) Is this a current diagnosis for this admission?: Yes Plan: He uses bipap at night. (4) Obesity hypoventilation syndrome Is this a current diagnosis for this admission?: Yes Plan: He has needed bipap now off, will order at night. (5) Peritonitis with abscess of intestine Is this a current diagnosis for this admission?: Yes Plan: Continue antibiotics (6) Post-operative pain Is this a current diagnosis for this admission?: Yes Plan: Fentanyl changed to morphine for longer effect. (7) Self extubation Is this a current diagnosis for this admission?: Yes Plan: He seems to be doing fairly well. (8) Tachycardia Is this a current diagnosis for this admission?: Yes Plan: He has been in AF, now in ST and home flecinide restarted. Plan Summary: When HR is better controled and resp status more stable, plan to downgrade. Critical Time Critical Time (minutes): 35 Level of Care: ICU Anticipated discharge: Home Within: Other -: 1. The care of a critical patient is a dynamic process. This note is a medical center representative synopsis but static in nature. The timeframe for treatments given in order is not necessarily the actual time these treatments may have been done. 2. This patient requires critical care secondary to ongoing requirements for therapy not offered or safe outside the critical care environment. Transfer to a lower level of care will result in altered life or limb morbidity and mortality. 3. Multidisciplinary rounds completed. 4. ABCDE bundle addressed.
[2020-02-24] MEDS: ASPIRIN 81 MG TABLET, ENT COATED PO SCH (11:34)
[2020-02-24] MEDS: MORPHINE SULFATE 10 MG/ML INJ IV PRN ×2 (11:34→20:26)
[2020-02-24 14:08] LABS: ALK PHOS INTESTINAL FRACTION 0 % (0-18)
[2020-02-24] MEDS ORDERED: (PENDING PHARMACY ID) (Omega-3 Fatty Acids/Fish Oil [Omega 3 Fish Oil Softgel] 1 EACH) PO SCH (18:00)
[2020-02-24] MEDS: OMEGA-3 ACID ETHYL ESTERS 1 GM CAPSULE PO SCH (18:28)
--- NOTE | 2020-02-24 19:08 | Progress Note ---
Provider Note Provider Note: CARDIOLOGY PROGRESS NOTE by Dr. Paris Vargas on 02/24/2020. SUBJECTIVE: The patient last night and early this morning was in atrial fibrillation with rapid ventricular response. At that time he seemingly had chest tightness. The patient was given flecainide dose earlier than his usual scheduled dose and the patient converted to sinus rhythm. The patient prefers to be use nasal BiPAP. He denies any chest pain or discomfort at present. There is no ventricle arrhythmia seen on the monitor. He still has not passed flatus. His troponin is trended down. He has no evidence of angina. PHYSICAL EXAMINATION: The patient morbidly obese. In no acute distress. Selected Entries 02/24/20 02/24/20 02/24/20 10:00 10:09 10:23 Temperature Temperature Source Core 99.1 F Temperature Pulse Rate Heart Rate ( 89 Monitors) Respiratory 20 Rate Blood Pressure 136/68 H Blood Pressure [Right 1] Blood Pressure 90 Mean Blood Pressure Mean [Right 1] Blood Pressure Position [Right 1] O2 Sat by Pulse 99 Oximetry Oxygen Delivery Nasal Cannula Method ( includes room air) Percent of Oxygen 02/24/20 02/24/20 10:24 16:00 Temperature 98.4 F Temperature Core Source Core Temperature Pulse Rate 85 Heart Rate ( Monitors) Respiratory 12 Rate Blood Pressure Blood Pressure 124/61 [Right 1] Blood Pressure Mean Blood Pressure 82 Mean [Right 1] Blood Pressure Supine Position [Right 1] O2 Sat by Pulse 99 100 Oximetry Oxygen Delivery Bi-pap Method ( includes room air) Percent of 40 Oxygen HEAD: Is atraumatic normocephalic. EYES: Pupils are equal round regular reactive light accommodation. ENT is negative NECK: Is supple. There is no JVD. Carotids are equal there is no bruits. There is no lymphadenopathy. There is no goiter. There is no accessory muscle respiration use. LUNGS: There is diminished air entry prolonged expiration. There is no rhonchi rales or wheezing. On percussion there is hyperresonance. HEART: S1-S2 is heard. There is no S3 gallop there is no S4 gallop. There is systolic murmur left sternal border and the apex. There is no rub. ABDOMEN: Is obese. Mildly distended. Bowel sounds are present but weak.. Surgical dressing is dry and clean.. EXTREMITIES femorals are diminished there is no femoral bruits. Leg pulses are diminished. There is no pedal edema. There is no DVT or cellulitis. There is no calf tenderness. There is no cyanosis or clubbing. ECONOMICS ANALYST: The patient is conscious awake oriented x3 with no focal deficit. PSYCHIATRIC: Patient judgment insight are intact his affect is normal. EKG: Interpreted by me.: Sinus rhythm. Nonspecific IVCD. QTC is 451. Labs- All tests 24 hr 02/22/20 02/24/20 02/24/20 08:55 02:35 04:13 WBC 19.8 H RBC 3.48 L Hgb 11.0 L Hct 32.8 L MCV 94 MCH 31.7 MCHC 33.7 RDW 13.7 Plt Count 260 Lymph % (Auto) 8.1 L [place] % (Auto) 8.8 Eos % (Auto) 0.1 Baso % (Auto) 0.1 Absolute Neuts (auto) 16.4 H Absolute Lymphs (auto) 1.6 Absolute Monos (auto) 1.7 H Absolute Eos (auto) 0.0 Absolute Basos (auto) 0.0 Seg Neutrophils % 82.9 H Sodium Potassium Chloride Carbon Dioxide Anion Gap BUN Creatinine Est GFR ( Amer) Est GFR (MDRD) Non-Af Glucose POC Glucose 112 H Calcium Phosphorus Magnesium Total Alk Phosphatase 169 H Alk Phos Iso-Intestine 0 Alk Phos Iso-Bone 28 Alk Phos Iso-Liver 72 02/24/20 02/24/20 02/24/20 04:13 06:53 11:54 WBC RBC Hgb Hct MCV MCH MCHC RDW Plt Count Lymph % (Auto) [place] % (Auto) Eos % (Auto) Baso % (Auto) Absolute Neuts (auto) Absolute Lymphs (auto) Absolute Monos (auto) Absolute Eos (auto) Absolute Basos (auto) Seg Neutrophils % Sodium 139.1 Potassium 3.4 L Chloride 106 Carbon Dioxide 24 Anion Gap 9 BUN 27 H Creatinine 0.74 Est GFR ( Amer) > 60 Est GFR (MDRD) Non-Af > 60 Glucose 114 H POC Glucose 111 H 101 Calcium 9.7 Phosphorus 3.0 Magnesium 2.1 Total Alk Phosphatase Alk Phos Iso-Intestine Alk Phos Iso-Bone Alk Phos Iso-Liver 02/24/20 17:34 WBC RBC Hgb Hct MCV MCH MCHC RDW Plt Count Lymph % (Auto) [place] % (Auto) Eos % (Auto) Baso % (Auto) Absolute Neuts (auto) Absolute Lymphs (auto) Absolute Monos (auto) Absolute Eos (auto) Absolute Basos (auto) Seg Neutrophils % Sodium Potassium Chloride Carbon Dioxide Anion Gap BUN Creatinine Est GFR ( Amer) Est GFR (MDRD) Non-Af Glucose POC Glucose 101 Calcium Phosphorus Magnesium Total Alk Phosphatase Alk Phos Iso-Intestine Alk Phos Iso-Bone Alk Phos Iso-Liver Abdomen/Pelvis CT 02/21/20 14:37 IMPRESSION: 1. Increased size of the right lower lobe pulmonary nodule measuring 2.1 cm, previously 1.6 cm. Malignancy is highy suspected. PET-CT or tissue sampling should be considered 2. Dilated appendix with significant pericecal inflammatory change compatible with acute appendicitis. No focal drainable collection. Recommend surgical consultation. 3. Innumerable lucent osseous lesions suggestive neoplasm, likely metastatic disease versus multiple myeloma. Findings discussed with Dr. Gamble At 1519 hours on 02/21/2020. Chest X-Ray 02/22/20 00:00 IMPRESSION: Minimal bibasilar atelectasis with otherwise no acute disease. IMPRESSION/RECOMMENDATION: 1. Elevated troponin I secondary to supply demand mismatch. This is due to the patient's acute appendicitis. No evidence of acute coronary syndrome or non-ST elevation [place]. The patient's troponin is trended down. There are no acute EKG changes. 2. Acute appendicitis. S/p surgery. The patient has a phlegmon and an ruptured appendiceal abscess. 3. No evidence of acute coronary syndrome. The patient has no anginal symptoms. The patient on 10/25/2019 has had a negative Cardiolite stress test. Also he has no known history of coronary artery disease. 4. History of paroxysmal l atrial fibrillation: The patient had a brief run of recurrent atrial fibrillation with rapid ventricle response. This reverted back to sinus rhythm when the patient was given flecainide at an earlier time. 5. Hypokalemia mild. Replace patient potassium. Note the patient's magnesium is now normal. 6. Hypertension: BP well controlled 7. Hyperlipidemia. 8. COPD: Without exacerbation. 8. Most likely lung cancer with bony mets. This needs to be worked up later. 9. Prior history of cardiomyopathy. The patient's echo in September 2019 showed LV ejection fraction 65 to 70%. Medications reviewed. Medication recommendations, medical regimen and management plan discussed with executive coach. Medical decision making is of high complexity. 40 minutes spent with patient with more than 50% of time spent in direct patient care. Will follow
--- NOTE | 2020-02-24 20:24 | EKG REPORT ---
SEVERITY:- ABNORMAL ECG - SINUS RHYTHM NONSPECIFIC INTRAVENTRICULAR CONDUCTION DELAY : Confirmed by: Willie Thompson MD 24-Feb-2020 20:23:23
[2020-02-24] MEDS: ATORVASTATIN CALCIUM 20 MG TABLET PO SCH (22:58)
[2020-02-24] MEDS: MONTELUKAST SODIUM 10 MG TABLET PO SCH (22:58)
[2020-02-25] MEDS: MORPHINE SULFATE 10 MG/ML INJ IV PRN ×3 (02:27→21:12)
[2020-02-25] MEDS: METRONIDAZOLE 500 MG/NS RTU 500 MG/100 ML RTUPB IV SCH ×4 (02:28→21:24)
[2020-02-25] MEDS: RINGERS SOLUTION,LACTATED 1,000 ML IV PRN (03:03)
[2020-02-25] MEDS: HEPARIN SOD (PORCINE) 5,000 UNIT/ML 1 ML VIAL SUBCUT SCH ×3 (05:56→21:25)
[2020-02-25] MEDS: AZTREONAM 2 GM in DEXTROSE 5%-WATER 100 ML IV SCH ×3 (05:57→23:49)
[2020-02-25] MEDS: HYDROCORTISONE SOD SUCCINATE INJ/PF 100 MG/2 ML SDV IV SCH ×3 (05:57→21:23)
--- NOTE | 2020-02-25 08:04 | PDOC CRITICAL CARE PROG REPORT ---
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 Sepsis resolved. - Medications: Medications reviewed and adjusted accordingly: Yes Vasopressors:: None Sedation:: None Physical Exam Vital Signs: Temp Pulse Resp BP Pulse Ox 97.3 F 62 11 L 125/55 L 100 02/25/20 06:00 02/25/20 06:00 02/25/20 06:00 02/25/20 06:00 02/25/20 06:00 Intake & Output 02/24/20 02/25/20 02/26/20 06:59 06:59 06:59 Intake Total 2573 3638 Output Total 3985 3595 Balance -1412 43 Weight 118.2 kg 117.9 kg Weight/Height Weight 117.9 kg Height 5 ft 7 in General appearance: PRESENT: no acute distress, cooperative, morbidly obese Head exam: PRESENT: atraumatic, normocephalic Eye exam: PRESENT: conjunctiva pink, EOMI, PERRLA. ABSENT: scleral icterus Ear exam: PRESENT: normal external ear exam Mouth exam: PRESENT: moist, tongue midline Respiratory exam: PRESENT: clear to auscultation anshul. ABSENT: rales, rhonchi, wheezes Cardiovascular exam: PRESENT: RRR. ABSENT: diastolic murmur, rubs, systolic murmur GI/Abdominal exam: PRESENT: normal bowel sounds, soft. ABSENT: distended, guard ing, mass, organolmegaly, rebound, tenderness Rectal exam: PRESENT: deferred Gentrourinary exam: PRESENT: indwelling catheter Musculoskeletal exam: PRESENT: normal inspection Neurological exam: PRESENT: alert, awake, oriented to person, oriented to place, oriented to time, oriented to situation, CN II-XII grossly intact. ABSENT: motor sensory deficit Psychiatric exam: PRESENT: appropriate affect, normal mood. ABSENT: homicidal ideation, suicidal ideation Skin exam: PRESENT: dry, intact, warm. ABSENT: cyanosis, rash Tubes/Lines: PRESENT: Nasogastic Tube Laboratory/Radiographs Laboratory Results: 02/21/20 20:32 Peritoneal Gram Stain - Final 02/21/20 20:32 Peritoneal Wound Culture - Final Enterobacter Cloacae Streptococcus Salivarius Peptostreptococcus Species Bacteroides Fragilis Group 02/21/20 02/21/20 02/21/20 16:15 19:29 19:29 CK-MB (CK-2) 1.34 Troponin I 1.170 0.926 NT-Pro-B Natriuret Pep 289 H 02/22/20 02/22/20 00:21 06:01 CK-MB (CK-2) 1.13 0.79 Troponin I 0.587 0.409 NT-Pro-B Natriuret Pep Impressions: Abdomen/Pelvis CT 02/21/20 14:37 IMPRESSION: 1. Increased size of the right lower lobe pulmonary nodule measuring 2.1 cm, previously 1.6 cm. Malignancy is highy suspected. PET-CT or tissue sampling should be considered 2. Dilated appendix with significant pericecal inflammatory change compatible with acute appendicitis. No focal drainable collection. Recommend surgical consultation. 3. Innumerable lucent osseous lesions suggestive neoplasm, likely metastatic disease versus multiple myeloma. Findings discussed with Dr. Gamble At 1519 hours on 02/21/2020. Chest X-Ray 02/22/20 00:00 IMPRESSION: Minimal bibasilar atelectasis with otherwise no acute disease. All labs, radiographs, diagnostic studies and EKGs were personally reviewed: Yes In addition, reports of radiographic and diagnostic studies were read: Yes Assessment and Plan - Diagnosis (1) Appendicitis Qualifiers: Appendicitis type: acute appendicitis Acute appendicitis type: with localized peritonitis Appendicitis gangrene presence: unspecified whether gangrene present Appendicitis perforation presence: with perforation Appendicitis abscess presence: with abscess Qualified Code(s): K35.33 - Acute appendicitis with perforation and localized peritonitis, with abscess Is this a current diagnosis for this admission?: Yes Plan: Resolved. Wants to drink. May remove NG today. (2) Lung nodules Is this a current diagnosis for this admission?: Yes Plan: Work up in progress. Needs to recover more from appendectomy (3) HIADER (obstructive sleep apnea) Is this a current diagnosis for this admission?: Yes Plan: He uses bipap at night. (4) Obesity hypoventilation syndrome Is this a current diagnosis for this admission?: Yes (5) Peritonitis with abscess of intestine Is this a current diagnosis for this admission?: Yes Plan: Seems to be recovering. (6) Post-operative pain Is this a current diagnosis for this admission?: Yes Plan: Controlled. (7) Self extubation Is this a current diagnosis for this admission?: Yes Plan: He is quite stable. (8) Tachycardia Is this a current diagnosis for this admission?: Yes Plan: Back on flecanide with good results. Plan Summary: Need to confirm with Dr. Doherty advise to D/C NG, feed. Ok to transfer out of ICU. Critical Time Critical Time (minutes): 25 Level of Care: IMCU Anticipated discharge: Home with Homehealth Within: Other -: 1. The care of a critical patient is a dynamic process. This note is a client support representative synopsis but static in nature. The timeframe for treatments given in order is not necessarily the actual time these treatments may have been done. 2. This patient requires critical care secondary to ongoing requirements for therapy not offered or safe outside the critical care environment. Transfer to a lower level of care will result in altered life or limb morbidity and mortality. 3. Multidisciplinary rounds completed. 4. ABCDE bundle addressed.
[2020-02-25 08:06] LABS: ABSOLUTE EOSINOPHILS # (AUTO) 0.1 10^3/uL (0.0-0.6); ABSOLUTE LYMPHOCYTES (AUTO) 1.5 10^3/uL (0.5-4.7); ABSOLUTE MONOCYTES (AUTO) 1.3 10^3/uL (0.1-1.4); ABSOLUTE NEUT (AUTO) 10.5 10^3/uL (1.7-8.2); BASOPHILS % (AUTO) 0.4 % (0-2); HEMATOCRIT 29.2 % (37.9-51.0); HEMOGLOBIN 9.8 g/dL (13.5-17.0); LYMPHOCYTES % (AUTO) 11.4 % (13-45); MEAN CORPUSCULAR HEMOGLOBIN 32.1 pg (27.0-33.4); MEAN CORPUSCULAR HGB CONC 33.7 g/dL (32.0-36.0); MEAN CORPUSCULAR VOLUME 95 fl (80-97); MONOCYTES % (AUTO) 9.3 % (3-13); PLATELET COUNT 254 10^3/uL (150-450); RED BLOOD COUNT 3.06 10^6/uL (4.35-5.55); RED CELL DISTRIBUTION WIDTH 14.1 % (11.5-14.0); SEGMENTED NEUTROPHILS % (AUTO) 77.9 % (42-78); TOTAL CELLS COUNTED % (AUTO) 100 %; WHITE BLOOD COUNT 13.5 10^3/uL (4.0-10.5)
[2020-02-25 08:21] LABS: BLOOD UREA NITROGEN 23 mg/dL (7-20); CALCIUM 9.7 mg/dL (8.4-10.2); CARBON DIOXIDE 29 mmol/L (22-30); CHLORIDE 106 mmol/L (98-107); GLUCOSE 111 mg/dL (75-110)
[2020-02-25 08:24] LABS: VANCOMYCIN,TROUGH 8.4 ug/mL (5.0-20.0)
[2020-02-25 08:30] LABS: ANION GAP 4 (5-19)
[2020-02-25] MEDS: ASPIRIN 81 MG TABLET, ENT COATED PO SCH (09:09)
[2020-02-25] MEDS: POLYETHYLENE GLYCOL 3350 POWDER 17 GM/1 PACKET PO SCH ×2 (09:09)
[2020-02-25] MEDS: FLECAINIDE ACETATE 100 MG TABLET PO SCH (09:09)
[2020-02-25] MEDS: OMEGA-3 ACID ETHYL ESTERS 1 GM CAPSULE PO SCH ×2 (09:09→17:15)
[2020-02-25] MEDS: LISINOPRIL 10 MG TABLET PO SCH (09:09)
--- NOTE | 2020-02-25 09:34 | PDOC PROGRESS REPORT ---
Subjective Progress Note for:: 02/25/20 Subjective:: feels ok, passing flatus ng wiht min op on cpap Reason For Visit: RUPTURED APPENDIX,SEPSIS Physical Exam Vital Signs: Temp Pulse Resp BP Pulse Ox 97.3 F 85 11 L 125/55 L 100 02/25/20 06:00 02/25/20 08:00 02/25/20 06:00 02/25/20 06:00 02/25/20 06:00 Intake & Output 02/24/20 02/25/20 02/26/20 06:59 06:59 06:59 Intake Total 2573 3738 Output Total 3985 3595 200 Balance -1412 143 -200 Weight 118.2 kg 117.9 kg General appearance: PRESENT: no acute distress Head exam: PRESENT: normocephalic Eye exam: PRESENT: EOMI Ear exam: PRESENT: normal external ear exam Mouth exam: PRESENT: moist Neck exam: PRESENT: full ROM Respiratory exam: PRESENT: rhonchi Cardiovascular exam: PRESENT: RRR Pulses: PRESENT: +2 pedal pulses bilateral Breast: PRESENT: Normal GI/Abdominal exam: PRESENT: normal bowel sounds, other Rectal exam: PRESENT: deferred Neurological exam: PRESENT: alert, awake, oriented to person, oriented to place Psychiatric exam: PRESENT: appropriate affect Skin exam: PRESENT: dry Results Laboratory Results: 02/25/20 07:49 02/25/20 07:49 02/25/20 02/25/20 07:49 07:49 WBC 13.5 H RBC 3.06 L Hgb 9.8 L Hct 29.2 L MCV 95 MCH 32.1 MCHC 33.7 RDW 14.1 H Plt Count 254 Seg Neutrophils % 77.9 Sodium 139.3 Potassium 4.0 Chloride 106 Carbon Dioxide 29 Anion Gap 4 L BUN 23 H Creatinine 0.70 Est GFR ( Amer) > 60 Glucose 111 H Calcium 9.7 02/21/20 20:32 Peritoneal Gram Stain - Final 02/21/20 20:32 Peritoneal Wound Culture - Final Enterobacter Cloacae Streptococcus Salivarius Peptostreptococcus Species Bacteroides Fragilis Group 02/21/20 02/21/20 02/21/20 16:15 19:29 19:29 CK-MB (CK-2) 1.34 Troponin I 1.170 0.926 NT-Pro-B Natriuret Pep 289 H 02/22/20 02/22/20 00:21 06:01 CK-MB (CK-2) 1.13 0.79 Troponin I 0.587 0.409 NT-Pro-B Natriuret Pep Impressions: Abdomen/Pelvis CT 02/21/20 14:37 IMPRESSION: 1. Increased size of the right lower lobe pulmonary nodule measuring 2.1 cm, previously 1.6 cm. Malignancy is highy suspected. PET-CT or tissue sampling should be considered 2. Dilated appendix with significant pericecal inflammatory change compatible with acute appendicitis. No focal drainable collection. Recommend surgical consultation. 3. Innumerable lucent osseous lesions suggestive neoplasm, likely metastatic disease versus multiple myeloma. Findings discussed with Dr. Gamble At 1519 hours on 02/21/2020. Chest X-Ray 02/22/20 00:00 IMPRESSION: Minimal bibasilar atelectasis with otherwise no acute disease. Assessment & Plan - Plan Summary Plan Summary: s/p partial colectomy for perforated appendicits with phlegmon now iwth slowely returing bowel function on cpap in icu\ copd morbidly obese plan ok to dc ng tube today start sips and bowel function returing icu plans on tx to floor ]surgery will cont to follow.
[2020-02-25] MEDS: CARVEDILOL 12.5 MG TABLET PO SCH ×2 (11:12→21:23)
[2020-02-25] MEDS ORDERED: RINGERS SOLUTION,LACTATED 1,000 ML IV PRN (11:42)
[2020-02-25] MEDS: ATORVASTATIN CALCIUM 20 MG TABLET PO SCH (21:22)
[2020-02-25] MEDS: MONTELUKAST SODIUM 10 MG TABLET PO SCH (21:22)
--- NOTE | 2020-02-25 22:39 | Progress Note ---
Provider Note Provider Note: CARDIOLOGY PROGRESS NOTE by Dr. Paris Vargas on 02/25/2020. SUBJECTIVE: The patient continues to be in sinus mechanism. There is no atrial fibrillation recurrence. He denies any chest pain or discomfort. His shortness of breath is much improved. He has no PND or orthopnea. There is no anginal symptoms. There is no TIA CVA symptoms. The patient is being transferred out of the ICU. PHYSICAL EXAMINATION: The patient is morbidly obese at present in no acute distress Selected Entries 02/25/20 02/25/20 11:24 12:00 Core 97.3 F Temperature Heart Rate ( 65 Monitors) Respiratory 10 L Rate Blood Pressure 131/68 H Blood Pressure 89 Mean O2 Sat by Pulse 100 Oximetry Oxygen Delivery Nasal Cannula Method ( includes room air) Oxygen Flow 4 Rate HEAD: Is atraumatic normocephalic. EYES: Pupils are equal round regular reactiv e light accommodation. ENT is negative NECK: Is supple. There is no JVD. Carotids are equal there is no bruits. There is no lymphadenopathy. There is no goiter. There is no accessory muscle respiration use. LUNGS: There is diminished air entry prolonged expiration. There is no rhonchi rales or wheezing. On percussion there is hyperresonance. HEART: S1-S2 is heard. There is no S3 gallop there is no S4 gallop. There is systolic murmur left sternal border and the apex. There is no rub. ABDOMEN: Is obese. Mildly distended. Bowel sounds are present but weak.. Surgical dressing is dry and clean.. EXTREMITIES femorals are diminished there is no femoral bruits. Leg pulses are diminished. There is no pedal edema. There is no DVT or cellulitis. There is no calf tenderness. There is no cyanosis or clubbing. 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 PSYCHIATRIC: Patient judgment insight are intact his affect is normal. Abdomen/Pelvis CT 02/21/20 14:37 IMPRESSION: 1. Increased size of the right lower lobe pulmonary nodule measuring 2.1 cm, previously 1.6 cm. Malignancy is highy suspected. PET-CT or tissue sampling should be considered 2. Dilated appendix with significant pericecal inflammatory change compatible with acute appendicitis. No focal drainable collection. Recommend surgical consultation. 3. Innumerable lucent osseous lesions suggestive neoplasm, likely metastatic disease versus multiple myeloma. Findings discussed with Dr. Gamble At 1519 hours on 02/21/2020. Chest X-Ray 02/22/20 00:00 IMPRESSION: Minimal bibasilar atelectasis with otherwise no acute disease. Labs- All tests 24 hr 02/24/20 02/25/20 02/25/20 23:34 07:49 07:49 WBC 13.5 H RBC 3.06 L Hgb 9.8 L Hct 29.2 L MCV 95 MCH 32.1 MCHC 33.7 RDW 14.1 H Plt Count 254 Lymph % (Auto) 11.4 L [place] % (Auto) 9.3 Eos % (Auto) 1.0 Baso % (Auto) 0.4 Absolute Neuts (auto) 10.5 H Absolute Lymphs (auto) 1.5 Absolute Monos (auto) 1.3 Absolute Eos (auto) 0.1 Absolute Basos (auto) 0.0 Seg Neutrophils % 77.9 Sodium Potassium Chloride Carbon Dioxide Anion Gap BUN Creatinine Est GFR ( Amer) Est GFR (MDRD) Non-Af Glucose POC Glucose 108 Calcium Time Trough Drawn 0749 Vancomycin Trough 8.4 02/25/20 07:49 WBC RBC Hgb Hct MCV MCH MCHC RDW Plt Count Lymph % (Auto) [place] % (Auto) Eos % (Auto) Baso % (Auto) Absolute Neuts (auto) Absolute Lymphs (auto) Absolute Monos (auto) Absolute Eos (auto) Absolute Basos (auto) Seg Neutrophils % Sodium 139.3 Potassium 4.0 Chloride 106 Carbon Dioxide 29 Anion Gap 4 L BUN 23 H Creatinine 0.70 Est GFR ( Amer) > 60 Est GFR (MDRD) Non-Af > 60 Glucose 111 H POC Glucose Calcium 9.7 Time Trough Drawn Vancomycin Trough IMPRESSION/RECOMMENDATION: 1. Elevated troponin I secondary to supply demand mismatch. This is due to the patient's acute appendicitis. No evidence of acute coronary syndrome or non-ST elevation [place]. The patient's troponin is trended down. There are no acute EKG changes. 2. Acute appendicitis. S/p surgery. The patient has a phlegmon and an ruptured appendiceal abscess. 3. No evidence of acute coronary syndrome. The patient has no anginal symptoms. The patient on 10/25/2019 has had a negative Cardiolite stress test. Also he has no known history of coronary artery disease. 4. History of paroxysmal l atrial fibrillation: The patient had a brief run of recurrent atrial fibrillation with rapid ventricle response. This reverted back to sinus rhythm when the patient was given flecainide at an earlier time. 5. Hypokalemia: This is resolved. Potassium today is 4.0 6. Hypertension: BP well controlled 7. Hyperlipidemia. 8. COPD: Without exacerbation. 8. Most likely lung cancer with bony mets. This will be worked up by oncology. 9. Prior history of cardiomyopathy. The patient's echo in September 2019 showed LV ejection fraction 65 to 70%. Medications reviewed. Medication recommendations, medical regimen and management plan discussed with public relations director. Medical decision making is of moderate complexity. 40 minutes spent with patient with more than 50% of time spent in direct patient care. Will follow
[2020-02-26] MEDS ORDERED: METOPROLOL TARTRATE PF/INJ 5 MG/5 ML SDV IV ONE ×2 (01:52→02:00)
[2020-02-26] MEDS ORDERED: FLECAINIDE ACETATE 100 MG TABLET ONE (01:56)
[2020-02-26] MEDS ORDERED: FLECAINIDE ACETATE 100 MG TABLET PO ONE (02:00)
[2020-02-26] MEDS ORDERED: DILTIAZEM HCL/D5W 125 MG/125 ML RTUINJ IV ONE (02:29)
[2020-02-26] MEDS ORDERED: DILTIAZEM HCL/D5W 125 MG/125 ML RTUINJ IV PRN (02:33)
[2020-02-26] MEDS: METRONIDAZOLE 500 MG/NS RTU 500 MG/100 ML RTUPB IV SCH ×4 (03:16→22:09)
[2020-02-26] MEDS: MORPHINE SULFATE 10 MG/ML INJ IV PRN ×3 (03:46→22:06)
[2020-02-26 05:39] LABS: ABSOLUTE EOSINOPHILS # (AUTO) 0.1 10^3/uL (0.0-0.6); ABSOLUTE LYMPHOCYTES (AUTO) 1.7 10^3/uL (0.5-4.7); ABSOLUTE MONOCYTES (AUTO) 1.4 10^3/uL (0.1-1.4); ABSOLUTE NEUT (AUTO) 10.9 10^3/uL (1.7-8.2); BASOPHILS % (AUTO) 0.2 % (0-2); EOSINOPHILS % (AUTO) 0.9 % (0-6); HEMATOCRIT 31.7 % (37.9-51.0); HEMOGLOBIN 10.4 g/dL (13.5-17.0); LYMPHOCYTES % (AUTO) 12.4 % (13-45); MEAN CORPUSCULAR HEMOGLOBIN 31.3 pg (27.0-33.4); MEAN CORPUSCULAR HGB CONC 32.8 g/dL (32.0-36.0); MEAN CORPUSCULAR VOLUME 95 fl (80-97); MONOCYTES % (AUTO) 9.7 % (3-13); PLATELET COUNT 277 10^3/uL (150-450); RED BLOOD COUNT 3.32 10^6/uL (4.35-5.55); RED CELL DISTRIBUTION WIDTH 14.1 % (11.5-14.0); SEGMENTED NEUTROPHILS % (AUTO) 76.8 % (42-78); TOTAL CELLS COUNTED % (AUTO) 100 %; WHITE BLOOD COUNT 14.1 10^3/uL (4.0-10.5)
[2020-02-26] MEDS: PANTOPRAZOLE SODIUM 40 MG TABLET.DR PO SCH (06:03)
[2020-02-26] MEDS: HYDROCORTISONE SOD SUCCINATE INJ/PF 100 MG/2 ML SDV IV SCH ×2 (06:03→14:37)
[2020-02-26] MEDS: HEPARIN SOD (PORCINE) 5,000 UNIT/ML 1 ML VIAL SUBCUT SCH ×3 (06:03→22:09)
[2020-02-26] MEDS: AZTREONAM 2 GM in DEXTROSE 5%-WATER 100 ML IV SCH ×2 (06:03→14:51)
[2020-02-26 06:11] LABS: ANION GAP 7 (5-19); BLOOD UREA NITROGEN 22 mg/dL (7-20); CALCIUM 9.5 mg/dL (8.4-10.2); CARBON DIOXIDE 25 mmol/L (22-30); CHLORIDE 106 mmol/L (98-107); GLUCOSE 93 mg/dL (75-110); POTASSIUM 3.5 mmol/L (3.6-5.0)
--- NOTE | 2020-02-26 10:08 | EKG REPORT ---
SEVERITY:- ABNORMAL ECG - SINUS RHYTHM NONSPECIFIC INTRAVENTRICULAR CONDUCTION DELAY : Confirmed by: Willie Thompson MD 26-Feb-2020 10:07:44
[2020-02-26] MEDS: CARVEDILOL 12.5 MG TABLET PO SCH ×2 (10:57→22:17)
[2020-02-26] MEDS: LISINOPRIL 10 MG TABLET PO SCH (10:57)
[2020-02-26] MEDS: OMEGA-3 ACID ETHYL ESTERS 1 GM CAPSULE PO SCH ×2 (10:58→17:21)
[2020-02-26] MEDS: ASPIRIN 81 MG TABLET, ENT COATED PO SCH (10:58)
[2020-02-26] MEDS: POLYETHYLENE GLYCOL 3350 POWDER 17 GM/1 PACKET PO SCH (10:58)
[2020-02-26] MEDS: FLECAINIDE ACETATE 100 MG TABLET PO SCH (11:01)
--- NOTE | 2020-02-26 13:53 | PDOC PROGRESS REPORT ---
Subjective Progress Note for:: 02/26/20 Subjective:: feels better, up ambulating passing flatus, no stool Reason For Visit: RUPTURED APPENDIX,SEPSIS Physical Exam Vital Signs: Temp Pulse Resp BP Pulse Ox 97.6 F 79 22 H 127/56 H 100 02/26/20 11:35 02/26/20 11:35 02/26/20 11:35 02/26/20 11:35 02/26/20 11:35 Intake & Output 02/25/20 02/26/20 02/27/20 06:59 06:59 06:59 Intake Total 3738 400 682 Output Total 3595 1250 370 Balance 143 -850 312 Weight 117.9 kg 118 kg General appearance: PRESENT: no acute distress Head exam: PRESENT: normocephalic Eye exam: PRESENT: EOMI Ear exam: PRESENT: normal external ear exam Mouth exam: PRESENT: moist Neck exam: PRESENT: full ROM Respiratory exam: PRESENT: clear to auscultation anshul Cardiovascular exam: PRESENT: RRR Pulses: PRESENT: normal radial pulses, normal femoral pulses GI/Abdominal exam: PRESENT: soft Rectal exam: PRESENT: deferred Extremities exam: PRESENT: full ROM Musculoskeletal exam: PRESENT: full ROM Neurological exam: PRESENT: alert, awake, oriented to person, oriented to place Psychiatric exam: PRESENT: appropriate affect Skin exam: PRESENT: dry - s/p ileocecectomy for perforated appendicitis now with returning bowel function will start clear liquids Results Laboratory Results: 02/26/20 05:03 02/26/20 05:03 02/26/20 02/26/20 05:03 05:03 WBC 14.1 H RBC 3.32 L Hgb 10.4 L Hct 31.7 L MCV 95 MCH 31.3 MCHC 32.8 RDW 14.1 H Plt Count 277 Seg Neutrophils % 76.8 Sodium 138.0 Potassium 3.5 L Chloride 106 Carbon Dioxide 25 Anion Gap 7 BUN 22 H Creatinine 0.56 Est GFR ( Amer) > 60 Glucose 93 Calcium 9.5 Magnesium 2.0 02/21/20 12:39 Blood Blood Culture - Final NO GROWTH IN 5 DAYS 02/21/20 02/21/20 02/21/20 16:15 19:29 19:29 CK-MB (CK-2) 1.34 Troponin I 1.170 0.926 NT-Pro-B Natriuret Pep 289 H 02/22/20 02/22/20 00:21 06:01 CK-MB (CK-2) 1.13 0.79 Troponin I 0.587 0.409 NT-Pro-B Natriuret Pep Impressions: Abdomen/Pelvis CT 02/21/20 14:37 IMPRESSION: 1. Increased size of the right lower lobe pulmonary nodule measuring 2.1 cm, previously 1.6 cm. Malignancy is highy suspected. PET-CT or tissue sampling should be considered 2. Dilated appendix with significant pericecal inflammatory change compatible with acute appendicitis. No focal drainable collection. Recommend surgical consultation. 3. Innumerable lucent osseous lesions suggestive neoplasm, likely metastatic disease versus multiple myeloma. Findings discussed with Dr. Gamble At 1519 hours on 02/21/2020. Chest X-Ray 02/22/20 00:00 IMPRESSION: Minimal bibasilar atelectasis with otherwise no acute disease.
[2020-02-26] MEDS ORDERED: POTASSIUM CHLORIDE 10 MEQ TABLET.ER PO ONE (14:00)
--- NOTE | 2020-02-26 14:06 | PDOC PROGRESS REPORT ---
Subjective Progress Note for:: 02/26/20 Subjective:: Mr. Adithya Diaz is 69 years old with past medical history of A. fib, CHF, hypertension, hyperlipidemia, COPD, sleep apnea, GERD, who was admitted on 02/22/2020 complaining of abdominal discomfort, nausea, vomiting, anorexia with fever and was found to have a perforated appendix, he is status post partial colectomy by surgery patient initially admitted to ICU and transferred to floor on 02/25/2020. 02/26/2020. No acute events overnight. Patient comfortably sitting up in distress, still complaining of mild abdominal pain otherwise tolerating clear liquids, passing flatus, has not had a bowel movement, denies any shortness of breath, chest pain, nausea, vomiting, diarrhea, constipation or any urinary symptoms. Reason For Visit: RUPTURED APPENDIX,SEPSIS Physical Exam Vital Signs: Temp Pulse Resp BP Pulse Ox 97.6 F 79 22 H 127/56 H 100 02/26/20 11:35 02/26/20 11:35 02/26/20 11:35 02/26/20 11:35 02/26/20 11:35 Intake & Output 02/25/20 02/26/20 02/27/20 06:59 06:59 06:59 Intake Total 3738 400 682 Output Total 3595 1250 370 Balance 143 -850 312 Weight 117.9 kg 118 kg General appearance: PRESENT: obese Head exam: PRESENT: atraumatic, normocephalic Respiratory exam: PRESENT: clear to auscultation anshul. ABSENT: rales, rhonchi, wheezes Cardiovascular exam: PRESENT: RRR. ABSENT: diastolic murmur, rubs, systolic murmur GI/Abdominal exam: PRESENT: normal bowel sounds, soft, other - Surgical wound looks clean,. ABSENT: distended, guarding, mass, organolmegaly, rebound, tenderness Neurological exam: PRESENT: alert, awake, oriented to person, oriented to place, oriented to time, oriented to situation, CN II-XII grossly intact. ABSENT: motor sensory deficit Results Laboratory Results: 02/26/20 05:03 02/26/20 05:03 02/26/20 02/26/20 05:03 05:03 WBC 14.1 H RBC 3.32 L Hgb 10.4 L Hct 31.7 L MCV 95 MCH 31.3 MCHC 32.8 RDW 14.1 H Plt Count 277 Seg Neutrophils % 76.8 Sodium 138.0 Potassium 3.5 L Chloride 106 Carbon Dioxide 25 Anion Gap 7 BUN 22 H Creatinine 0.56 Est GFR ( Amer) > 60 Glucose 93 Calcium 9.5 Magnesium 2.0 02/21/20 12:39 Blood Blood Culture - Final NO GROWTH IN 5 DAYS 02/21/20 02/21/20 02/21/20 16:15 19:29 19:29 CK-MB (CK-2) 1.34 Troponin I 1.170 0.926 NT-Pro-B Natriuret Pep 289 H 02/22/20 02/22/20 00:21 06:01 CK-MB (CK-2) 1.13 0.79 Troponin I 0.587 0.409 NT-Pro-B Natriuret Pep Impressions: Abdomen/Pelvis CT 02/21/20 14:37 IMPRESSION: 1. Increased size of the right lower lobe pulmonary nodule measuring 2.1 cm, previously 1.6 cm. Malignancy is highy suspected. PET-CT or tissue sampling should be considered 2. Dilated appendix with significant pericecal inflammatory change compatible with acute appendicitis. No focal drainable collection. Recommend surgical consultation. 3. Innumerable lucent osseous lesions suggestive neoplasm, likely metastatic disease versus multiple myeloma. Findings discussed with Dr. Gamble At 1519 hours on 02/21/2020. Chest X-Ray 02/22/20 00:00 IMPRESSION: Minimal bibasilar atelectasis with otherwise no acute disease. Assessment and Plan - Diagnosis (1) Peritonitis with abscess of intestine Is this a current diagnosis for this admission?: Yes Plan: Secondary to perforated appendix. Abdominal fluid growing Enterobacter, Streptococcus, Peptostreptococcus and Bacteroides. Leukocytosis improving. Afebrile. On aztreonam and metronidazole. Consult ID on duration of antibiotics. (2) Appendicitis Qualifiers: Appendicitis type: acute appendicitis Acute appendicitis type: with localized peritonitis Appendicitis gangrene presence: unspecified whether gangrene present Appendicitis perforation presence: with perforation Appendicitis abscess presence: with abscess Qualified Code(s): K35.33 - Acute appendicitis with perforation and localized peritonitis, with abscess Is this a current diagnosis for this admission?: Yes Plan: Complicated perforated sinusitis status post exploratory laparotomy and hemicolectomy. Abdominal pain is minimal, passing flatus, afebrile, tolerated clear liquid. (3) HAIDER (obstructive sleep apnea) Is this a current diagnosis for this admission?: Yes Plan: Nocturnal BiPAP. Supplemental oxygen. (4) Obesity hypoventilation syndrome Is this a current diagnosis for this admission?: Yes Plan: Nocturnal BiPAP. Supplemental oxygen. (5) COPD exacerbation Is this a current diagnosis for this admission?: Yes Plan: Does not seem to be acutely exacerbated. History of COPD oxygen dependent on 2 L nasal cannula. Him home meds. PRN duo nebs. PRN BiPAP. (6) Lung nodules Is this a current diagnosis for this admission?: Yes Plan: Oncology on board. Outpatient follow-up is recommended. (7) Atrial fibrillation Qualifiers: Atrial fibrillation type: paroxysmal Qualified Code(s): I48.0 - Paroxysmal atrial fibrillation Is this a current diagnosis for this admission?: Yes Plan: Rate controlled. On Cardizem drip. Cardiology on board. Recommendations noted.
[2020-02-26] MEDS ORDERED: DILTIAZEM HCL INJ 25 MG/5 ML VIAL IV ONE (15:00)
[2020-02-26] MEDS: FLUTICASONE/UMECLIDIN/VILANTER 100-62.5-25 MCG/DOSE IH SCH (17:19)
[2020-02-26] MEDS: IPRATROPIUM BROMIDE 0.02% NEB 0.5 MG/2.5 ML AMPUL NEB SCH (20:45)
[2020-02-26] MEDS ORDERED: HEPARIN SOD (PORCINE) 5,000 UNIT/ML 1 ML VIAL ONE (21:55)
[2020-02-26] MEDS: DILTIAZEM HCL 30 MG TABLET PO SCH (22:17)
[2020-02-26] MEDS: MONTELUKAST SODIUM 10 MG TABLET PO SCH (22:17)
[2020-02-26] MEDS: ATORVASTATIN CALCIUM 20 MG TABLET PO SCH (22:17)
--- NOTE | 2020-02-26 23:00 | Progress Note ---
Provider Note Provider Note: Cardiology PROGRESS NOTE by Dr. Paris Varags on 02/26/2020. Subjective: The patient last night went into atrial fibrillation with rapid ventricular response. His blood pressure was stable. He was placed on a Cardizem drip and converted to sinus rhythm. This morning his Cardizem drip was discontinued and the patient was placed on p.o. Cardizem. Last night the patient also received an extra dose of flecainide and 2.5 mg of IV Lopressor prior to starting of the Cardizem drip. Since with the Lopressor and the extra dose of flecainide the patient did not convert to sinus rhythm. But with IV Cardizem the patient did convert to sinus rhythm and she will place the patient on a Cardizem at 30 mg p.o. every 8 hours along with the flecainide 100 mg p.o. twice daily. At present the patient has no chest pain discomfort. There is no shortness of breath. He is lung cancer work-up is pending. There is no ventricle arrhythmia seen on the monitor. He has no TIA CVA symptoms. Later need to revisit the option of starting anticoagulation with the patient. I have discussed this with the patient and patient's . Will discuss with Dr. Kramer the calender inspector in [place] prior to doing doing so. At present we will hold off until the lung work-up is completed, since this may involve lung biopsy. PHYSICAL EXAMINATION: The patient is morbidly obese. In no acute distress. Selected Entries 02/26/20 11:35 Temperature 97.6 F Temperature Oral Source Pulse Rate 79 Respiratory 22 H Rate Blood Pressure 127/56 H Blood Pressure 79 Mean BP Location Left Arm BP Position Sitting O2 Sat by Pulse 100 Oximetry Oxygen Flow 3.00 Rate Oxygen Delivery Nasal Cannula Method HEAD: Is atraumatic normocephalic. EYES: Pupils are equal round regular reactive light accommodation. ENT is negative NECK: Is supple. There is no JVD. Carotids are equal there is no bruits. There is no lymphadenopathy. There is no goiter. There is no accessory muscle respiration use. LUNGS: There is diminished air entry prolonged expiration. There is no rhonchi rales or wheezing. On percussion there is hyperresonance. HEART: S1-S2 is heard. There is no S3 gallop there is no S4 gallop. There is systolic murmur left sternal border and the apex. There is no rub. ABDOMEN: Is obese. Mildly distended. Bowel sounds are present but weak.. Surgical dressing is dry and clean.. EXTREMITIES femorals are diminished there is no femoral bruits. Leg pulses are diminished. There is no pedal edema. There is no DVT or cellulitis. There is no calf tenderness. There is no cyanosis or clubbing. 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 PSYCHIATRIC: Patient judgment insight are intact his affect is normal. Labs- All tests 24 hr 02/26/20 02/26/20 05:03 05:03 WBC 14.1 H RBC 3.32 L Hgb 10.4 L Hct 31.7 L MCV 95 MCH 31.3 MCHC 32.8 RDW 14.1 H Plt Count 277 Lymph % (Auto) 12.4 L [place] % (Auto) 9.7 Eos % (Auto) 0.9 Baso % (Auto) 0.2 Absolute Neuts (auto) 10.9 H Absolute Lymphs (auto) 1.7 Absolute Monos (auto) 1.4 Absolute Eos (auto) 0.1 Absolute Basos (auto) 0.0 Seg Neutrophils % 76.8 Sodium 138.0 Potassium 3.5 L Chloride 106 Carbon Dioxide 25 Anion Gap 7 BUN 22 H Creatinine 0.56 Est GFR ( Amer) > 60 Est GFR (MDRD) Non-Af > 60 Glucose 93 Calcium 9.5 Magnesium 2.0 Abdomen/Pelvis CT 02/21/20 14:37 IMPRESSION: 1. Increased size of the right lower lobe pulmonary nodule measuring 2.1 cm, previously 1.6 cm. Malignancy is highy suspected. PET-CT or tissue sampling should be considered 2. Dilated appendix with significant pericecal inflammatory change compatible with acute appendicitis. No focal drainable collection. Recommend surgical consultation. 3. Innumerable lucent osseous lesions suggestive neoplasm, likely metastatic disease versus multiple myeloma. Findings discussed with Dr. Gamble At 1519 hours on 02/21/2020. Chest X-Ray 02/22/20 00:00 IMPRESSION: Minimal bibasilar atelectasis with otherwise no acute disease. IMPRESSION/RECOMMENDATION: 1. Elevated troponin I secondary to supply demand mismatch. This is due to the patient's acute appendicitis. No evidence of acute coronary syndrome or non-ST elevation [place]. The patient's troponin is trended down. There are no acute EKG changes. 2. Acute appendicitis. S/p surgery. The patient has a phlegmon and an ruptured appendiceal abscess. 3. No evidence of acute coronary syndrome. The patient has no anginal symptoms. The patient on 10/25/2019 has had a negative Cardiolite stress test. Also he has no known history of coronary artery disease. 4. History of paroxysmal l atrial fibrillation: The patient had a brief run of recurrent atrial fibrillation with rapid ventricle response. This reverted back to sinus rhythm when the patient was given flecainide at an earlier time. 5. Hypokalemia: This is resolved. Potassium today is 4.0 6. Hypertension: BP well controlled 7. Hyperlipidemia. 8. COPD: Without exacerbation. 8. Most likely lung cancer with bony mets. This will be worked up by oncology. 9. Prior history of cardiomyopathy. The patient's echo in September 2019 showed LV ejection fraction 65 to 70%. Medications reviewed. Medications added. Medical regimen management plan discussed with the attending provider. Medical decision making is of high complexity. 40 minutes (patient more than 50% time spent in direct patient care. Will follow.
[2020-02-27] MEDS: AZTREONAM 2 GM in DEXTROSE 5%-WATER 100 ML IV SCH ×2 (00:20→06:05)
[2020-02-27] MEDS: MORPHINE SULFATE 10 MG/ML INJ IV PRN (02:40)
[2020-02-27] MEDS: METRONIDAZOLE 500 MG/NS RTU 500 MG/100 ML RTUPB IV SCH ×2 (03:49→11:07)
[2020-02-27 05:25] LABS: HEMATOCRIT 30.9 % (37.9-51.0); HEMOGLOBIN 10.3 g/dL (13.5-17.0); MEAN CORPUSCULAR HEMOGLOBIN 31.5 pg (27.0-33.4); MEAN CORPUSCULAR HGB CONC 33.2 g/dL (32.0-36.0); MEAN CORPUSCULAR VOLUME 95 fl (80-97); PLATELET COUNT 286 10^3/uL (150-450); RED BLOOD COUNT 3.26 10^6/uL (4.35-5.55); RED CELL DISTRIBUTION WIDTH 13.9 % (11.5-14.0); WHITE BLOOD COUNT 15.6 10^3/uL (4.0-10.5)
[2020-02-27 05:40] LABS: ANION GAP 7 (5-19); BLOOD UREA NITROGEN 22 mg/dL (7-20); CALCIUM 9.6 mg/dL (8.4-10.2); CARBON DIOXIDE 28 mmol/L (22-30); CHLORIDE 103 mmol/L (98-107); GLUCOSE 105 mg/dL (75-110)
[2020-02-27 05:42] LABS: ABSOLUTE LYMPHOCYTES# (MANUAL) 1.7 10^3/uL (0.5-4.7); ABSOLUTE MONOCYTES # (MANUAL) 0.5 10^3/uL (0.1-1.4); BASOPHILS % (MANUAL) 1 % (0-2); EOSINOPHILS % (MANUAL) 1 % (0-6); LYMPHOCYTES % (MANUAL) 11 % (13-45); MONOCYTES % (MANUAL) 3 % (3-13); SEGMENTED NEUTROPHILS % (MAN) 84 % (42-78); TOTAL CELLS COUNTED 100
[2020-02-27 05:43] LABS: PLATELET COMMENT ADEQUATE; RBC MORPHOLOGY COMMENT NORMO-CYTIC/CHROMIC
[2020-02-27] MEDS: DILTIAZEM HCL 30 MG TABLET PO SCH ×3 (06:03→21:55)
[2020-02-27] MEDS: PANTOPRAZOLE SODIUM 40 MG TABLET.DR PO SCH (06:04)
[2020-02-27] MEDS: HEPARIN SOD (PORCINE) 5,000 UNIT/ML 1 ML VIAL SUBCUT SCH ×2 (06:04→14:12)
[2020-02-27] MEDS: IPRATROPIUM BROMIDE 0.02% NEB 0.5 MG/2.5 ML AMPUL NEB SCH ×3 (07:58→19:54)
[2020-02-27] MEDS ORDERED: HYDRALAZINE HCL INJ/PF 20 MG/1 ML SDV IV PRN (10:19)
[2020-02-27] MEDS ORDERED: METOPROLOL TARTRATE PF/INJ 5 MG/5 ML SDV IV PRN (10:19)
[2020-02-27] MEDS: POLYETHYLENE GLYCOL 3350 POWDER 17 GM/1 PACKET PO SCH (10:37)
[2020-02-27] MEDS: OMEGA-3 ACID ETHYL ESTERS 1 GM CAPSULE PO SCH (11:04)
[2020-02-27] MEDS: CARVEDILOL 12.5 MG TABLET PO SCH ×2 (11:07→21:56)
[2020-02-27] MEDS: ASPIRIN 81 MG TABLET, ENT COATED PO SCH (11:07)
[2020-02-27] MEDS: LISINOPRIL 10 MG TABLET PO SCH (11:07)
[2020-02-27] MEDS: FLECAINIDE ACETATE 100 MG TABLET PO SCH (11:09)
[2020-02-27] MEDS: FLUTICASONE/UMECLIDIN/VILANTER 100-62.5-25 MCG/DOSE IH SCH (11:09)
--- NOTE | 2020-02-27 13:25 | PDOC PROGRESS REPORT ---
Subjective Progress Note for:: 02/27/20 Reason For Visit: RUPTURED APPENDIX,SEPSIS Patient belching, states he has reflux. Has not farted much. Physical Exam Vital Signs: Temp Pulse Resp BP Pulse Ox 97.6 F 90 16 176/66 H 95 02/27/20 11:34 02/27/20 11:34 02/27/20 11:34 02/27/20 11:34 02/27/20 11:34 Intake & Output 02/26/20 02/27/20 02/28/20 06:59 06:59 06:59 Intake Total 400 1253 100 Output Total 1250 945 Balance -850 308 100 Weight 118 kg 121.5 kg General appearance: PRESENT: no acute distress, mild distress GI/Abdominal exam: PRESENT: other - Abdomen is distended; incisions dry and intact. There is moderate tympany, but no tenderness. Results Laboratory Results: 02/27/20 05:05 02/27/20 05:05 02/27/20 02/27/20 05:05 05:05 WBC 15.6 H RBC 3.26 L Hgb 10.3 L Hct 30.9 L MCV 95 MCH 31.5 MCHC 33.2 RDW 13.9 Plt Count 286 Seg Neutrophils % Not Reportable Sodium 137.9 Potassium 4.0 Chloride 103 Carbon Dioxide 28 Anion Gap 7 BUN 22 H Creatinine 0.60 Est GFR ( Amer) > 60 Glucose 105 Calcium 9.6 Magnesium 2.0 02/22/20 00:47 Blood Blood Culture - Final NO GROWTH IN 5 DAYS 02/22/20 00:21 Blood Blood Culture - Final NO GROWTH IN 5 DAYS 02/21/20 14:38 Blood Blood Culture - Final NO GROWTH IN 5 DAYS 02/21/20 12:39 Blood Blood Culture - Final NO GROWTH IN 5 DAYS 02/21/20 02/21/20 02/21/20 16:15 19:29 19:29 CK-MB (CK-2) 1.34 Troponin I 1.170 0.926 NT-Pro-B Natriuret Pep 289 H 02/22/20 02/22/20 00:21 06:01 CK-MB (CK-2) 1.13 0.79 Troponin I 0.587 0.409 NT-Pro-B Natriuret Pep Impressions: Abdomen/Pelvis CT 02/21/20 14:37 IMPRESSION: 1. Increased size of the right lower lobe pulmonary nodule measuring 2.1 cm, previously 1.6 cm. Malignancy is highy suspected. PET-CT or tissue sampling should be considered 2. Dilated appendix with significant pericecal inflammatory change compatible with acute appendicitis. No focal drainable collection. Recommend surgical consultation. 3. Innumerable lucent osseous lesions suggestive neoplasm, likely metastatic disease versus multiple myeloma. Findings discussed with Dr. Gamble At 1519 hours on 02/21/2020. Chest X-Ray 02/22/20 00:00 IMPRESSION: Minimal bibasilar atelectasis with otherwise no acute disease. Assessment & Plan - Diagnosis (1) Status post colon resection Is this a current diagnosis for this admission?: Yes Plan: Impression: Patient is 6 days status post ileocolectomy, with intermittent ileus, minimal bowel function. No evidence of acute abdomen. Final pathology shows 10 cm tumor consistent with lung malignancy with 7 out of 8 lymph nodes positive for metastatic disease. Plan: 1. We will get patient up ambulating, and evacuation of gas 2. We have requested oncologic consultation. 3. We will discontinue intravenous antibiotics (2) COPD exacerbation Is this a current diagnosis for this admission?: Yes - Time Time Spent: 30 to 50 Minutes
[2020-02-27] MEDS ORDERED: LORAZEPAM INJ 2 MG/1 ML VIAL IV ONE (14:11)
[2020-02-27] MEDS ORDERED: CHLORPROMAZINE HCL INJ 25 MG/1 ML AMPULE IV ONE (14:12)
--- NOTE | 2020-02-27 14:26 | PDOC PROGRESS REPORT ---
Subjective Progress Note for:: 02/27/20 Subjective:: Mr. Adithya Diaz is 69 years old with past medical history of A. fib, CHF, hypertension, hyperlipidemia, COPD, sleep apnea, GERD, who was admitted on 02/22/2020 complaining of abdominal discomfort, nausea, vomiting, anorexia with fever and was found to have a perforated appendix, he is status post partial colectomy by surgery patient initially admitted to ICU and transferred to floor on 02/25/2020. 02/26/2020. No acute events overnight. Patient comfortably sitting up in distress, still complaining of mild abdominal pain otherwise tolerating clear liquids, passing flatus, has not had a bowel movement, denies any shortness of breath, chest pain, nausea, vomiting, diarrhea, constipation or any urinary symptoms. 02/27/2020. Patient complaining of excessive belching and nausea, is passing minimal flatus, has not had a bowel movement, complaining of abdominal d istention and feeling uncomfortable, denies any abdominal pain, shortness of breath, chills, fever, chest pain. Reason For Visit: RUPTURED APPENDIX,SEPSIS Physical Exam Vital Signs: Temp Pulse Resp BP Pulse Ox 97.6 F 89 16 176/66 H 94 02/27/20 11:34 02/27/20 14:12 02/27/20 14:12 02/27/20 11:34 02/27/20 14:12 Intake & Output 02/26/20 02/27/20 02/28/20 06:59 06:59 06:59 Intake Total 400 1253 620 Output Total 1250 945 225 Balance -850 308 395 Weight 118 kg 121.5 kg General appearance: PRESENT: mild distress, morbidly obese Head exam: PRESENT: atraumatic, normocephalic Respiratory exam: PRESENT: clear to auscultation anshul. ABSENT: rales, rhonchi, wheezes Cardiovascular exam: PRESENT: RRR. ABSENT: diastolic murmur, rubs, systolic murmur GI/Abdominal exam: PRESENT: distended, hypoactive bowel sounds, soft. ABSENT: guarding, mass, organolmegaly, rebound, tenderness Neurological exam: PRESENT: alert, awake, oriented to person, oriented to place, oriented to time, oriented to situation, CN II-XII grossly intact. ABSENT: motor sensory deficit Results Laboratory Results: 02/27/20 05:05 06/22/20 05:05 02/27/20 02/27/20 05:05 05:05 WBC 15.6 H RBC 3.26 L Hgb 10.3 L Hct 30.9 L MCV 95 MCH 31.5 MCHC 33.2 RDW 13.9 Plt Count 286 Seg Neutrophils % Not Reportable Sodium 137.9 Potassium 4.0 Chloride 103 Carbon Dioxide 28 Anion Gap 7 BUN 22 H Creatinine 0.60 Est GFR ( Amer) > 60 Glucose 105 Calcium 9.6 Magnesium 2.0 02/22/20 00:47 Blood Blood Culture - Final NO GROWTH IN 5 DAYS 02/22/20 00:21 Blood Blood Culture - Final NO GROWTH IN 5 DAYS 02/21/20 14:38 Blood Blood Culture - Final NO GROWTH IN 5 DAYS 02/21/20 12:39 Blood Blood Culture - Final NO GROWTH IN 5 DAYS 02/21/20 02/21/20 02/21/20 16:15 19:29 19:29 CK-MB (CK-2) 1.34 Troponin I 1.170 0.926 NT-Pro-B Natriuret Pep 289 H 02/22/20 02/22/20 00:21 06:01 CK-MB (CK-2) 1.13 0.79 Troponin I 0.587 0.409 NT-Pro-B Natriuret Pep Impressions: Abdomen/Pelvis CT 02/21/20 14:37 IMPRESSION: 1. Increased size of the right lower lobe pulmonary nodule measuring 2.1 cm, previously 1.6 cm. Malignancy is highy suspected. PET-CT or tissue sampling should be considered 2. Dilated appendix with significant pericecal inflammatory change compatible with acute appendicitis. No focal drainable collection. Recommend surgical consultation. 3. Innumerable lucent osseous lesions suggestive neoplasm, likely metastatic disease versus multiple myeloma. Findings discussed with Dr. Gamble At 1519 hours on 02/21/2020. Chest X-Ray 02/22/20 00:00 IMPRESSION: Minimal bibasilar atelectasis with otherwise no acute disease. Assessment and Plan - Diagnosis (1) Status post colon resection Is this a current diagnosis for this admission?: Yes Plan: POD 6 status post ileocolectomy, with intermittent ileus. Secondary to perforated appendiceal metastasis from lung cancer. Passing minimal flatus. Not able to tolerate p.o. intake yet. Planing of abdominal distention. Continue p.o. Monitor his vitals. Encourage ambulation. Surgery on board. Recommendations noted. (2) Peritonitis with abscess of intestine Is this a current diagnosis for this admission?: Yes Plan: Secondary to perforated appendix. Abdominal fluid growing Enterobacter, Streptococcus, Peptostreptococcus and Bacteroides. Leukocytosis improving. Afebrile. On aztreonam and metronidazole. Consult ID on duration of antibiotics. (3) Lung cancer Qualifiers: Laterality: unspecified laterality Lung location: unspecified part of lung Qualified Code(s): C34.90 - Malignant neoplasm of unspecified part of unspecified bronchus or lung Is this a current diagnosis for this admission?: Yes Plan: Metastatic stage IV lung cancer. Perforated appendix turned out to be lung metastasis to abdomen. Oncology consult. Pending recommendation. (4) HAIDER (obstructive sleep apnea) Is this a current diagnosis for this admission?: Yes Plan: Nocturnal BiPAP. Supplemental oxygen. (5) Obesity hypoventilation syndrome Is this a current diagnosis for this admission?: Yes Plan: Nocturnal BiPAP. Supplemental oxygen. (6) COPD exacerbation Is this a current diagnosis for this admission?: Yes Plan: Does not seem to be acutely exacerbated. History of COPD oxygen dependent on 2 L nasal cannula. Him home meds. PRN duo nebs. PRN BiPAP. (7) Atrial fibrillation Qualifiers: Atrial fibrillation type: paroxysmal Qualified Code(s): I48.0 - Paroxysmal atrial fibrillation Is this a current diagnosis for this admission?: Yes Plan: Rate controlled. Status post ablation. On beta-blockers and Cardizem. Not anticoagulated, due to recent abdominal surgery. Home medication is Eliquis 5 mg p.o. twice daily. Continue Cardizem. Continue beta-blockers. Resume Eliquis once appropriate. Cardiology consulted recommendations noted. (8) Appendicitis Qualifiers: Appendicitis type: acute appendicitis Acute appendicitis type: with localized peritonitis Appendicitis gangrene presence: unspecified whether gangrene present Appendicitis perforation presence: with perforation Appendicitis abscess presence: with abscess Qualified Code(s): K35.33 - Acute appendicitis with perforation and localized peritonitis, with abscess Is this a current diagnosis for this admission?: Yes Plan: Initially thought to be deep and started to return at to be metastatic lung cancer as per pathology report. Complicated perforated appendix status post exploratory laparotomy and hemicolectomy.
[2020-02-27 15:27] LABS: HEMATOCRIT 31.2 % (37.9-51.0); HEMOGLOBIN 10.6 g/dL (13.5-17.0); MEAN CORPUSCULAR VOLUME 94 fl (80-97); PLATELET COUNT 325 10^3/uL (150-450); RED BLOOD COUNT 3.31 10^6/uL (4.35-5.55); RED CELL DISTRIBUTION WIDTH 14.2 % (11.5-14.0); WHITE BLOOD COUNT 17.3 10^3/uL (4.0-10.5)
[2020-02-27 15:41] LABS: ALBUMIN 3.1 g/dL (3.5-5.0); ALKALINE PHOSPHATASE 180 U/L (38-126); ANION GAP 7 (5-19); ASPARTATE AMINO TRANSFERASE 45 U/L (17-59); BILIRUBIN,DIRECT 0.1 mg/dL (0.0-0.4); BILIRUBIN,TOTAL 0.9 mg/dL (0.2-1.3); BLOOD UREA NITROGEN 21 mg/dL (7-20); CALCIUM 9.8 mg/dL (8.4-10.2); CARBON DIOXIDE 29 mmol/L (22-30); CHLORIDE 102 mmol/L (98-107); GLUCOSE 98 mg/dL (75-110); POTASSIUM 3.7 mmol/L (3.6-5.0)
[2020-02-27 15:51] LABS: ABSOLUTE LYMPHOCYTES# (MANUAL) 2.8 10^3/uL (0.5-4.7); ABSOLUTE MONOCYTES # (MANUAL) 0.7 10^3/uL (0.1-1.4); BASOPHILS % (MANUAL) 0 % (0-2); EOSINOPHILS % (MANUAL) 0 % (0-6); LYMPHOCYTES % (MANUAL) 16 % (13-45); MONOCYTES % (MANUAL) 4 % (3-13); SEGMENTED NEUTROPHILS % (MAN) 80 % (42-78); TOTAL CELLS COUNTED 100
[2020-02-27 15:53] LABS: PLATELET COMMENT ADEQUATE; TOXIC GRANULATION SLIGHT
[2020-02-27 15:54] LABS: ANISOCYTOSIS SLIGHT
--- NOTE | 2020-02-27 21:48 | Progress Note ---
Provider Note Provider Note: CARDIOLOGY PROGRESS NOTE by Dr. Paris Vargas on 02/27/2020. SUBJECTIVE: The patient states he is distressed by recent development of hiccups. He also be due to hiccups there is pain at the incisional area in the abdomen. He has no chest pain or discomfort. There is no further recurrence of atrial fibrillation. There is no ventricle arrhythmia seen on the monitor. He denies any chest pain or discomfort. There is no PND orthopnea. He does have some trace leg edema. PHYSICAL EXAMINATION: The patient morbidly obese in no acute distress Selected Entries 02/27/20 02/27/20 02/27/20 11:34 16:25 17:00 Temperature 97.6 F 97.2 F Temperature Oral Oral Source Pulse Rate 90 Heart Rate ( 96 Monitors) Respiratory 16 15 Rate Blood Pressure 176/66 H 147/76 H Blood Pressure 102 99 Mean BP Location Left Arm Left Arm BP Position Sitting Sitting O2 Sat by Pulse 95 96 Oximetry Oxygen Delivery Room Air Room Air Method HEAD: Is atraumatic normocephalic. EYES: Pupils are equal round regular reactive light accommodation. ENT is negative NECK: Is supple. There is no JVD. Carotids are equal there is no bruits. There is no lymphadenopathy. There is no goiter. There is no accessory muscle respiration use. LUNGS: There is diminished air entry prolonged expiration. There is no rhonchi rales or wheezing. On percussion there is hyperresonance. HEART: S1-S2 is heard. There is no S3 gallop there is no S4 gallop. There is systolic murmur left sternal border and the apex. There is no rub. ABDOMEN: Is obese. Mildly distended. Bowel sounds are present but weak.. Surgical dressing is dry and clean.. EXTREMITIES femorals are diminished there is no femoral bruits. Leg pulses are diminished. There is no pedal edema. There is no DVT or cellulitis. There is no calf tenderness. There is no cyanosis or clubbing. [employer]: The patient is conscious awake oriented x3 with no focal deficit. PSYCHIATRIC: Patient judgment insight are intact his affect is normal. Labs- All tests 24 hr 02/27/20 02/27/20 02/27/20 05:05 05:05 06:07 WBC 15.6 H RBC 3.26 L Hgb 10.3 L Hct 30.9 L MCV 95 MCH 31.5 MCHC 33.2 RDW 13.9 Plt Count 286 Lymph % (Auto) Not Reportable Carolina % (Auto) Not Reportable Eos % (Auto) Not Reportable Baso % (Auto) Not Reportable Absolute Neuts (auto) Not Reportable Absolute Lymphs (auto) Not Reportable Absolute Monos (auto) Not Reportable Absolute Eos (auto) Not Reportable Absolute Basos (auto) Not Reportable Total Counted 100 Seg Neutrophils % Not Reportable Seg Neuts % (Manual) 84 H Lymphocytes % (Manual) 11 L Monocytes % (Manual) 3 Eosinophils % (Manual) 1 Basophils % (Manual) 1 Abs Neuts (Manual) 13.1 H Abs Lymphs (Manual) 1.7 Abs Monocytes (Manual) 0.5 Absolute Eos (Manual) 0.2 Abs Basophils (Manual) 0.2 Toxic Granulation Platelet Comment ADEQUATE Anisocytosis Microcytosis RBC Morph Comment NORMO-CYTIC/CHROMIC Sodium 137.9 Potassium 4.0 Chloride 103 Carbon Dioxide 28 Anion Gap 7 BUN 22 H Creatinine 0.60 Est GFR ( Amer) > 60 Est GFR (MDRD) Non-Af > 60 Glucose 105 POC Glucose 104 Calcium 9.6 Magnesium 2.0 Total Bilirubin Direct Bilirubin Neonat Total Bilirubin Neonat Direct Bilirubin Neonat Indirect Bili AST ALT Alkaline Phosphatase Total Protein Albumin 02/27/20 02/27/20 02/27/20 11:36 14:47 14:47 WBC 17.3 H RBC 3.31 L Hgb 10.6 L Hct 31.2 L MCV 94 MCH 32.0 MCHC 34.0 RDW 14.2 H Plt Count 325 Lymph % (Auto) Not Reportable Carolina % (Auto) Not Reportable Eos % (Auto) Not Reportable Baso % (Auto) Not Reportable Absolute Neuts (auto) Not Reportable Absolute Lymphs (auto) Not Reportable Absolute Monos (auto) Not Reportable Absolute Eos (auto) Not Reportable Absolute Basos (auto) Not Reportable Total Counted 100 Seg Neutrophils % Not Reportable Seg Neuts % (Manual) 80 H Lymphocytes % (Manual) 16 Monocytes % (Manual) 4 Eosinophils % (Manual) 0 Basophils % (Manual) 0 Abs Neuts (Manual) 13.8 H Abs Lymphs (Manual) 2.8 Abs Monocytes (Manual) 0.7 Absolute Eos (Manual) 0.0 Abs Basophils (Manual) 0.0 Toxic Granulation SLIGHT Platelet Comment ADEQUATE Anisocytosis SLIGHT Microcytosis Not Reportable RBC Morph Comment Sodium 137.7 Potassium 3.7 Chloride 102 Carbon Dioxide 29 Anion Gap 7 BUN 21 H Creatinine 0.61 Est GFR ( Amer) > 60 Est GFR (MDRD) Non-Af > 60 Glucose 98 POC Glucose 116 H Calcium 9.8 Magnesium Total Bilirubin 0.9 Direct Bilirubin 0.1 Neonat Total Bilirubin Not Reportable Neonat Direct Bilirubin Not Reportable Neonat Indirect Bili Not Reportable AST 45 ALT 45 Alkaline Phosphatase 180 H Total Protein 6.0 L Albumin 3.1 L 02/27/20 02/27/20 18:43 23:50 WBC RBC Hgb Hct MCV MCH MCHC RDW Plt Count Lymph % (Auto) Carolina % (Auto) Eos % (Auto) Baso % (Auto) Absolute Neuts (auto) Absolute Lymphs (auto) Absolute Monos (auto) Absolute Eos (auto) Absolute Basos (auto) Total Counted Seg Neutrophils % Seg Neuts % (Manual) Lymphocytes % (Manual) Monocytes % (Manual) Eosinophils % (Manual) Basophils % (Manual) Abs Neuts (Manual) Abs Lymphs (Manual) Abs Monocytes (Manual) Absolute Eos (Manual) Abs Basophils (Manual) Toxic Granulation Platelet Comment Anisocytosis Microcytosis RBC Morph Comment Sodium Potassium Chloride Carbon Dioxide Anion Gap BUN Creatinine Est GFR ( Amer) Est GFR (MDRD) Non-Af Glucose POC Glucose 105 105 Calcium Magnesium Total Bilirubin Direct Bilirubin Neonat Total Bilirubin Neonat Direct Bilirubin Neonat Indirect Bili AST ALT Alkaline Phosphatase Total Protein Albumin Abdomen/Pelvis CT 02/21/20 14:37 IMPRESSION: 1. Increased size of the right lower lobe pulmonary nodule measuring 2.1 cm, previously 1.6 cm. Malignancy is highy suspected. PET-CT or tissue sampling should be considered 2. Dilated appendix with significant pericecal inflammatory change compatible with acute appendicitis. No focal drainable collection. Recommend surgical consultation. 3. Innumerable lucent osseous lesions suggestive neoplasm, likely metastatic disease versus multiple myeloma. Findings discussed with Dr. Gamble At 1519 hours on 02/21/2020. Chest X-Ray 02/22/20 00:00 IMPRESSION: Minimal bibasilar atelectasis with otherwise no acute disease. IMPRESSION/RECOMMENDATION: 1. Elevated troponin I secondary to supply demand mismatch. This is due to the patient's acute appendicitis. No evidence of acute coronary syndrome or non-ST elevation CA. The patient's troponin is trended down. There are no acute EKG changes. 2. Acute appendicitis. S/p surgery. The patient has a phlegmon and an ruptured appendiceal abscess. 3. No evidence of acute coronary syndrome. The patient has no anginal symptoms. The patient on 10/25/2019 has had a negative Cardiolite stress test. Also he has no known history of coronary artery disease. 4. History of paroxysmal l atrial fibrillation: The patient had a brief run of recurrent atrial fibrillation with rapid ventricle response. This reverted back to sinus rhythm when the patient was given flecainide at an earlier time. 5. Hypokalemia: This is resolved. Potassium today is 4.0 6. Hypertension: BP well controlled 7. Hyperlipidemia. 8. COPD: Without exacerbation. 8. Most likely lung cancer with bony mets. This will be worked up by oncology. 9. Prior history of cardiomyopathy. The patient's echo in September 2019 showed LV ejection fraction 65 to 70%. 10. Hiccups? Etiology Medications reviewed. Medications added. Medical regimen management plan discussed with the attending provider. Medical decision making is of high complexity. 40 minutes (patient more than 50% time spent in direct patient care. Will follow.
[2020-02-27] MEDS: PANTOPRAZOLE SODIUM 40 MG VIAL IV SCH (21:56)
[2020-02-27] MEDS: MONTELUKAST SODIUM 10 MG TABLET PO SCH (21:56)
[2020-02-27] MEDS: ATORVASTATIN CALCIUM 20 MG TABLET PO SCH (21:56)
[2020-02-28] MEDS ORDERED: FUROSEMIDE INJ/PF 20 MG/2 ML SDV IV ONE (00:15)
[2020-02-28] MEDS: DILTIAZEM HCL 30 MG TABLET PO SCH ×3 (06:16→21:25)
[2020-02-28 07:31] LABS: ANION GAP 8 (5-19); BLOOD UREA NITROGEN 21 mg/dL (7-20); CALCIUM 9.3 mg/dL (8.4-10.2); CARBON DIOXIDE 28 mmol/L (22-30); CHLORIDE 102 mmol/L (98-107); GLUCOSE 102 mg/dL (75-110); POTASSIUM 3.5 mmol/L (3.6-5.0)
[2020-02-28] MEDS: IPRATROPIUM BROMIDE 0.02% NEB 0.5 MG/2.5 ML AMPUL NEB SCH ×3 (07:50→19:58)
[2020-02-28] MEDS ORDERED: POTASSI CL 20 MEQ/50 ML RIDER 20 MEQ/50 ML RTUPB IV ONE (08:15)
--- NOTE | 2020-02-28 08:29 | Progress Note ---
Provider Note Provider Note: [facility] Telephone Advice Consultation Chart reviewed. Patient is a 69-year-old man with CHF, COPD, HAIDER, hypertension, atrial fibrillation s/p ablation and pulmonary nodules who was admitted on 02/20 due to fever, chills, abdominal pain x 4 days. In the ED he had a CT scan of abdomen and pelvis that demonstrated acute appendicitis with significant pericecal inflammation, also pulmonary nodules and bone lesions. He was evaluated by surgery, cleared by cardiology and was taken to the OR for partial right colon resection with ileo right colon anastomosis. The surgery was complex as it started as laparoscopic and was transitioned to open for better approach as there was an abscess and significant amount of pus. Peritoneal fluid cultures were positive for colonic haylee including Enterobacter cloacae, Bacteroides spp, Streptococcus salivarius, Peptostreptococcus. Blood cultures from 02/20 and 02/21 are negative. Patient has a remote history of penicillin allergy (anaphylaxis) for which levofloxacin was started, this was transitioned to meropenem to avoid further cardiac complications. There was hypotension but probably not related to meropenem. A decision was made by primary team to start patient on aztreonam and metronidazole. He was briefly in the ICU, he extubated himself, he was transferred to floor and apparently doing better, although has not had a a BM yet per notes. ID consulted for recommendations. PMH: CHF HAIDER HTN A fib s/p ablation COPD Pulmonary nodules Allergies Penicillins Allergy (Severe, Verified 06/16/13 08:53) Anaphylaxis Tetanus Vaccines and Toxoid [Tetanus] Allergy (Severe, Verified 06/16/13 08:53) Anaphylaxis Medications: Carvedilol [Coreg 12.5 mg Tablet] 12.5 mg PO Q12 10/30/14 Aspirin [Ecotrin 81 mg EC Tablet] 81 mg PO DAILY 02/21/20 Atorvastatin Calcium [Lipitor 20 mg Tablet] 20 mg PO QHS 02/21/20 Cyanocobalamin (Vitamin B-12) [Vitamin B-12 1000 Mcg Tablet] 2,000 mcg PO BID 02/21/20 Diclofenac Sodium 2 gm TOP QIDP PRN 02/21/20 Docusate Sodium [Colace 100 mg Capsule] 100 mg PO DAILY 02/21/20 Flecainide Acetate [Tambocor 100 mg Tablet] 100 mg PO DAILY 02/21/20 Hydrocodone/Acetaminophen [Occidental 5-325 mg Tablet] 1 tab PO Q6HP PRN MDD filled 02/16 for 5 day supply 02/21/20 [place]-3 Fatty Acids/Fish Oil [[place] 3 Fish Oil Softgel] 1 each PO BID 02/21/20 Tizanidine HCl 4 mg PO Q8HP PRN 02/21/20 Vital Signs: Temp Pulse Resp BP Pulse Ox 97.8 F 72 19 153/66 H 100 02/28/20 07:58 02/28/20 07:58 02/28/20 07:58 02/28/20 07:58 02/28/20 07:58 Laboratories: 02/27/20 14:47 02/28/20 06:10 MCV 94 fl (80-97) 02/27/20 14:47 MCH 32.0 pg (27.0-33.4) 02/27/20 14:47 MCHC 34.0 g/dL (32.0-36.0) 02/27/20 14:47 RDW 14.2 % (11.5-14.0) H 02/27/20 14:47 Seg Neutrophils % Not Reportable 02/27/20 14:47 Retic Count (auto) 1.99 % (0.66-2.85) 02/22/20 06:01 Carbonic Acid 1.08 mmol/L (1.05-1.35) 02/22/20 08:35 HCO3/H2CO3 Ratio 22:1 02/22/20 08:35 ABG pH 7.45 (7.35-7.45) 02/22/20 08:35 ABG pCO2 35.8 mmHg (35-45) 02/22/20 08:35 ABG pO2 71.3 mmHg (80-100) L 02/22/20 08:35 ABG HCO3 24.1 mmol/L (20-24) H 02/22/20 08:35 ABG O2 Saturation 95.1 % (94-98) 02/22/20 08:35 ABG Base Excess 0.5 mmol/L 02/22/20 08:35 VBG pH 7.48 (7.30-7.42) H 02/21/20 12:39 VBG pCO2 29.6 mmHg (35-63) L 02/21/20 12:39 VBG HCO3 21.7 mmol/L (20-32) 02/21/20 12:39 VBG Base Excess -0.8 mmol/L 02/21/20 12:39 FiO2 30% 02/22/20 08:35 Chloride 102 mmol/L (98-107) 02/28/20 06:10 Carbon Dioxide 28 mmol/L (22-30) 02/28/20 06:10 Anion Gap 8 (5-19) 02/28/20 06:10 Est GFR ( Amer) > 60 (>60) 02/28/20 06:10 Glucose 102 mg/dL (75-110) 02/28/20 06:10 Lactic Acid 1.0 mmol/L (0.7-2.1) 02/22/20 08:55 Calcium 9.3 mg/dL (8.4-10.2) 02/28/20 06:10 Phosphorus 3.0 mg/dL (2.5-4.5) 02/24/20 04:13 Magnesium 2.0 mg/dL (1.6-2.3) 02/28/20 06:10 Iron 13.5 ug/dL (49-181) L 02/22/20 06:01 TIBC 229 ug/dL (250-450) L 02/22/20 06:01 % Saturation 6 % 02/22/20 06:01 Transferrin 154.21 mg/dL (206.00-381.00) L 02/22/20 06:01 Ferritin 810.00 ng/mL (17.9-464.0) H 02/22/20 06:01 Total Bilirubin 0.9 mg/dL (0.2-1.3) 02/27/20 14:47 AST 45 U/L (17-59) 02/27/20 14:47 Alkaline Phosphatase 180 U/L (38-126) H 02/27/20 14:47 Ammonia < 8.7 umol/L (9-33) L 02/22/20 08:55 Total Protein 6.0 g/dL (6.3-8.2) L 02/27/20 14:47 Albumin 3.1 g/dL (3.5-5.0) L 02/27/20 14:47 Prostate Specific Ag 4.840 ng/mL (<4.00) H 02/22/20 08:55 Vitamin B12 975.0 pg/mL (239-931) H 02/22/20 06:01 Folate 13.30 ng/mL (>2.76) 02/22/20 06:01 TSH 1.32 uIU/mL (0.47-4.68) 02/22/20 06:01 Urine Color YELLOW 02/21/20 14:40 Urine Appearance SLIGHTLY-CLOUDY 02/21/20 14:40 Urine pH 5.0 (5.0-9.0) 02/21/20 14:40 Ur Specific [place] 1.013 02/21/20 14:40 Urine Protein NEGATIVE mg/dL (NEGATIVE) 02/21/20 14:40 Urine Glucose (UA) NEGATIVE mg/dL (NEGATIVE) 02/21/20 14:40 Urine Ketones NEGATIVE mg/dL (NEGATIVE) 02/21/20 14:40 Urine Blood MODERATE (NEGATIVE) H 02/21/20 14:40 Urine Nitrite NEGATIVE (NEGATIVE) 02/21/20 14:40 Ur Leukocyte Esterase NEGATIVE (NEGATIVE) 02/21/20 14:40 Urine WBC (Auto) 1 /HPF 02/21/20 14:40 Urine RBC (Auto) 2 /HPF 02/21/20 14:40 02/21/20 02/21/20 02/21/20 16:15 19:29 19:29 CK-MB (CK-2) 1.34 Troponin I 1.170 0.926 NT-Pro-B Natriuret Pep 289 H 02/22/20 02/22/20 00:21 06:01 CK-MB (CK-2) 1.13 0.79 Troponin I 0.587 0.409 NT-Pro-B Natriuret Pep Microbiology: Blood cultures: 02/20 NGTD 02/21 NGTD Peritoneal fluid cultures: 02/20 Enterobacter cloacae, Bacteroides, Peptostreptococcus, Streptococcus salivarius Radiology: Abdomen/Pelvis CT 02/21/20 14:37 IMPRESSION: 1. Increased size of the right lower lobe pulmonary nodule measuring 2.1 cm, previously 1.6 cm. Malignancy is highy suspected. PET-CT or tissue sampling should be considered 2. Dilated appendix with significant pericecal inflammatory change compatible with acute appendicitis. No focal drainable collection. Recommend surgical consultation. 3. Innumerable lucent osseous lesions suggestive neoplasm, likely metastatic disease versus multiple myeloma. Findings discussed with Dr. Gamble At 1519 hours on 02/21/2020. Chest X-Ray 02/22/20 00:00 IMPRESSION: Minimal bibasilar atelectasis with otherwise no acute disease. Assessment and Recommendations: Patient with acute appendicitis and perforation complicated with peritonitis due to colonic haylee including Enterobacter cloacae, Bacteroides, Peptostreptococcus and Streptococcus salivarius. He has had surgery and has been clinically improving. He did have an atrial fibrillation decompensation with RVR which was controlled. His WBC remains elevated. Considering the severity of his presentation, will have low threshold to repeat CT scan of abdomen and pelvis due to high risk of abscess formation that may require further source control. In terms of antibiotic therapy, STOP IT trial recommends a short course of antibiotics after adequate source control, however in this case due to perforation and high risk for abscess formation due to contaminated environment, I suspect he will need at least 2 weeks from the time of source control. Duration of therapy will be determined depending on clinical response. As leukocytosis is worsening, will recommend to repeat CT scan of abdomen and pelvis to rule out an abscess. Aztreonam and metronidazole are adequate, would not transition to oral therapy, he will need probably a minimum of 2 weeks of IV antibiotics. Please call with updates or questions. Catalina Novoa MD [facility] [phone]
[2020-02-28] MEDS: CARVEDILOL 12.5 MG TABLET PO SCH ×2 (10:07→21:25)
[2020-02-28] MEDS: FLECAINIDE ACETATE 100 MG TABLET PO SCH (10:08)
[2020-02-28] MEDS: ASPIRIN 81 MG TABLET, ENT COATED PO SCH (10:08)
[2020-02-28] MEDS: LISINOPRIL 10 MG TABLET PO SCH (10:08)
[2020-02-28] MEDS: FLUTICASONE/UMECLIDIN/VILANTER 100-62.5-25 MCG/DOSE IH SCH (10:09)
[2020-02-28] MEDS: PANTOPRAZOLE SODIUM 40 MG VIAL IV SCH ×2 (10:11→21:25)
[2020-02-28] MEDS: POLYETHYLENE GLYCOL 3350 POWDER 17 GM/1 PACKET PO SCH (10:15)
--- NOTE | 2020-02-28 12:36 | PDOC PROGRESS REPORT ---
Subjective Progress Note for:: 02/28/20 Subjective:: Mr. Adithya Diaz is 69 years old with past medical history of A. fib, CHF, hypertension, hyperlipidemia, COPD, sleep apnea, GERD, who was admitted on 02/22/2020 complaining of abdominal discomfort, nausea, vomiting, anorexia with fever and was found to have a perforated appendix, he is status post partial colectomy by surgery patient initially admitted to ICU and transferred to floor on 02/25/2020. 02/26/2020. No acute events overnight. Patient comfortably sitting up in distress, still complaining of mild abdominal pain otherwise tolerating clear liquids, passing flatus, has not had a bowel movement, denies any shortness of breath, chest pain, nausea, vomiting, diarrhea, constipation or any urinary symptoms. 02/27/2020. Patient complaining of excessive belching and nausea, is passing minimal flatus, has not had a bowel movement, complaining of abdominal d istention and feeling uncomfortable, denies any abdominal pain, shortness of breath, chills, fever, chest pain. 02/28/2020. No acute events overnight. Patient still complaining of some belching otherwise his nausea and abdominal pain are improving, patient is passing some flatus and has tolerated some clear liquids, denies any fever, chills, chest pain, diarrhea, constipation or any urinary symptoms. Reason For Visit: RUPTURED APPENDIX,SEPSIS Physical Exam Vital Signs: Temp Pulse Resp BP Pulse Ox 97.9 F 77 19 152/67 H 95 02/28/20 11:30 02/28/20 11:30 02/28/20 11:30 02/28/20 11:30 02/28/20 11:30 Intake & Output 02/27/20 02/28/20 02/29/20 06:59 06:59 06:59 Intake Total 1253 1091 Output Total 945 225 Balance 308 866 Weight 121.5 kg 121 kg 121 kg General appearance: PRESENT: no acute distress, morbidly obese, well-developed, well-nourished Head exam: PRESENT: atraumatic, normocephalic Respiratory exam: PRESENT: clear to auscultation anshul. ABSENT: rales, rhonchi, wheezes Cardiovascular exam: PRESENT: RRR. ABSENT: diastolic murmur, rubs, systolic m urmur GI/Abdominal exam: PRESENT: distended, hypoactive bowel sounds, soft. ABSENT: guarding, mass, organolmegaly, rebound, tenderness Extremities exam: PRESENT: full ROM. ABSENT: calf tenderness, clubbing, pedal edema Neurological exam: PRESENT: alert, awake, oriented to person, oriented to place, oriented to time, oriented to situation, CN II-XII grossly intact. ABSENT: motor sensory deficit Results Laboratory Results: 02/27/20 14:47 02/28/20 06:10 02/27/20 02/27/20 02/28/20 14:47 14:47 06:10 WBC 17.3 H RBC 3.31 L Hgb 10.6 L Hct 31.2 L MCV 94 MCH 32.0 MCHC 34.0 RDW 14.2 H Plt Count 325 Seg Neutrophils % Not Reportable Sodium 137.7 Potassium 3.7 Chloride 102 Carbon Dioxide 29 Anion Gap 7 BUN 21 H Creatinine 0.61 Est GFR ( Amer) > 60 Glucose 98 Calcium 9.8 Magnesium 2.0 Total Bilirubin 0.9 AST 45 Alkaline Phosphatase 180 H Total Protein 6.0 L Albumin 3.1 L 02/28/20 06:10 WBC RBC Hgb Hct MCV MCH MCHC RDW Plt Count Seg Neutrophils % Sodium 137.6 Potassium 3.5 L Chloride 102 Carbon Dioxide 28 Anion Gap 8 BUN 21 H Creatinine 0.64 Est GFR ( Amer) > 60 Glucose 102 Calcium 9.3 Magnesium Total Bilirubin AST Alkaline Phosphatase Total Protein Albumin 02/21/20 02/21/20 02/21/20 16:15 19:29 19:29 CK-MB (CK-2) 1.34 Troponin I 1.170 0.926 NT-Pro-B Natriuret Pep 289 H 02/22/20 02/22/20 00:21 06:01 CK-MB (CK-2) 1.13 0.79 Troponin I 0.587 0.409 NT-Pro-B Natriuret Pep Impressions: Abdomen/Pelvis CT 02/21/20 14:37 IMPRESSION: 1. Increased size of the right lower lobe pulmonary nodule measuring 2.1 cm, previously 1.6 cm. Malignancy is highy suspected. PET-CT or tissue sampling should be considered 2. Dilated appendix with significant pericecal inflammatory change compatible with acute appendicitis. No focal drainable collection. Recommend surgical consultation. 3. Innumerable lucent osseous lesions suggestive neoplasm, likely metastatic disease versus multiple myeloma. Findings discussed with Dr. Gamble At 1519 hours on 02/21/2020. Chest X-Ray 02/22/20 00:00 IMPRESSION: Minimal bibasilar atelectasis with otherwise no acute disease. Assessment and Plan - Diagnosis (1) Status post colon resection Is this a current diagnosis for this admission?: Yes Plan: POD 7 status post ileocolectomy, with intermittent ileus. Secondary to perforated appendiceal metastasis from lung cancer. Passing minimal flatus. Tolerating clear liquid. Advance diet as tolerated. Monitor his vitals. Encourage ambulation. Surgery on board. Recommendations noted. (2) Peritonitis with abscess of intestine Is this a current diagnosis for this admission?: Yes Plan: Secondary to perforated appendiceal metastasis. Abdominal fluid growing Enterobacter, Streptococcus, Peptostreptococcus and Bacteroides. Afebrile. Worsening leukocytosis. Day #5 IV aztreonam. Day #5 IV metronidazole. Day #5/14 IV antibiotics. Infectious disease specialist consulted. Recommendation is IV antibiotics for 14 days post source control. (3) Lung cancer Qualifiers: Laterality: unspecified laterality Lung location: unspecified part of lung Qualified Code(s): C34.90 - Malignant neoplasm of unspecified part of unspecified bronchus or lung Is this a current diagnosis for this admission?: Yes Plan: Metastatic stage IV lung cancer. Perforated appendix turned out to be lung metastasis to abdomen. Oncology consult. Chemotherapy is planned once patient is discharged from the hospital. (4) HAIDER (obstructive sleep apnea) Is this a current diagnosis for this admission?: Yes Plan: Nocturnal BiPAP. Supplemental oxygen. (5) Obesity hypoventilation syndrome Is this a current diagnosis for this admission?: Yes Plan: Nocturnal BiPAP. Supplemental oxygen. (6) COPD exacerbation Is this a current diagnosis for this admission?: Yes Plan: Does not seem to be acutely exacerbated. History of COPD oxygen dependent on 2 L nasal cannula. Resume home meds. PRN duo nebs. PRN BiPAP. (7) Atrial fibrillation Qualifiers: Atrial fibrillation type: paroxysmal Qualified Code(s): I48.0 - Paroxysmal atrial fibrillation Is this a current diagnosis for this admission?: Yes Plan: Rate controlled. Status post ablation. On beta-blockers and Cardizem. Not anticoagulated, due to recent abdominal surgery. Home medication is Eliquis 5 mg p.o. twice daily. Continue Cardizem. Continue beta-blockers. Resume Eliquis once appropriate. Cardiology consulted recommendations noted. (8) Appendicitis Qualifiers: Appendicitis type: acute appendicitis Acute appendicitis type: with localized peritonitis Appendicitis gangrene presence: unspecified whether gangrene present Appendicitis perforation presence: with perforation Appendicitis abscess presence: with abscess Qualified Code(s): K35.33 - Acute appendicitis with perforation and localized peritonitis, with abscess Is this a current diagnosis for this admission?: Yes Plan: As above. Initially thought to be deep and started to return at to be metastatic lung cancer as per pathology report. Complicated perforated appendix status post exploratory laparotomy and hemicolectomy.
--- NOTE | 2020-02-28 13:27 | PDOC PROGRESS REPORT ---
Subjective Progress Note for:: 02/28/20 Reason For Visit: RUPTURED APPENDIX,SEPSIS Physical Exam Vital Signs: Temp Pulse Resp BP Pulse Ox 97.9 F 77 19 152/67 H 95 02/28/20 11:30 02/28/20 11:30 02/28/20 11:30 02/28/20 11:30 02/28/20 11:30 Intake & Output 02/27/20 02/28/20 02/29/20 06:59 06:59 06:59 Intake Total 1253 1091 Output Total 945 225 Balance 308 866 Weight 121.5 kg 121 kg 121 kg Results Laboratory Results: 02/27/20 14:47 02/28/20 06:10 02/27/20 02/27/20 02/28/20 14:47 14:47 06:10 WBC 17.3 H RBC 3.31 L Hgb 10.6 L Hct 31.2 L MCV 94 MCH 32.0 MCHC 34.0 RDW 14.2 H Plt Count 325 Seg Neutrophils % Not Reportable Sodium 137.7 Potassium 3.7 Chloride 102 Carbon Dioxide 29 Anion Gap 7 BUN 21 H Creatinine 0.61 Est GFR ( Amer) > 60 Glucose 98 Calcium 9.8 Magnesium 2.0 Total Bilirubin 0.9 AST 45 Alkaline Phosphatase 180 H Total Protein 6.0 L Albumin 3.1 L 02/28/20 06:10 WBC RBC Hgb Hct MCV MCH MCHC RDW Plt Count Seg Neutrophils % Sodium 137.6 Potassium 3.5 L Chloride 102 Carbon Dioxide 28 Anion Gap 8 BUN 21 H Creatinine 0.64 Est GFR ( Amer) > 60 Glucose 102 Calcium 9.3 Magnesium Total Bilirubin AST Alkaline Phosphatase Total Protein Albumin 02/21/20 02/21/20 02/21/20 16:15 19:29 19:29 CK-MB (CK-2) 1.34 Troponin I 1.170 0.926 NT-Pro-B Natriuret Pep 289 H 02/22/20 02/22/20 00:21 06:01 CK-MB (CK-2) 1.13 0.79 Troponin I 0.587 0.409 NT-Pro-B Natriuret Pep Impressions: Abdomen/Pelvis CT 02/21/20 14:37 IMPRESSION: 1. Increased size of the right lower lobe pulmonary nodule measuring 2.1 cm, previously 1.6 cm. Malignancy is highy suspected. PET-CT or tissue sampling should be considered 2. Dilated appendix with significant pericecal inflammatory change compatible with acute appendicitis. No focal drainable collection. Recommend surgical consultation. 3. Innumerable lucent osseous lesions suggestive neoplasm, likely metastatic disease versus multiple myeloma. Findings discussed with Dr. Gamble At 1519 hours on 02/21/2020. Chest X-Ray 02/22/20 00:00 IMPRESSION: Minimal bibasilar atelectasis with otherwise no acute disease. Assessment & Plan - Diagnosis (1) Metastatic lung cancer (metastasis from lung to other site) Qualifiers: Laterality: unspecified laterality Qualified Code(s): C34.90 - Malignant neoplasm of unspecified part of unspecified bronchus or lung Is this a current diagnosis for this admission?: Yes - Plan Summary Plan Summary: This is a 69-year-old male with metastatic lung cancer, involving the cecum and appendix. The patient is doing reasonably well today. He still complains of distention and mild nausea. He is passing a very small amount of flatus. He is not having bowel movements. He is ambulating. I have examined his midline wound today. He continues to have serous drainage, however there is no sign of obvious fascial dehiscence. I have encouraged him to take in only sips of clear liquids. He should not drink aggressively, due to his ileus. X-ray today to evaluate his bowel gas pattern. Leukocytosis worsening. Start vancomycin to cover any gram-positives, not covered by Flagyl. The case was personally discussed with the infectious disease doctor as well as the hospitalist. Surgery will continue to follow.
[2020-02-28] MEDS ORDERED: VANCOMYCIN HCL 0 MG in DEXTROSE 5%-WATER 250 ML IV NR (13:30)
--- NOTE | 2020-02-28 14:02 | RADIOLOGY REPORT (SQ) ---
EXAM DESCRIPTION: KUB/ABDOMEN (SINGLE VIEW) IMAGES COMPLETED DATE/TIME: 02/28/2020 1:33 pm REASON FOR STUDY: distention COMPARISON: None. NUMBER OF VIEWS: One view. TECHNIQUE: Supine radiographic image of the abdomen acquired. LIMITATIONS: None. FINDINGS: BOWEL GAS PATTERN: Dilated loops of small bowel CALCIFICATIONS: No suspicious calcifications. SOFT TISSUES: No gross mass or suggestion of organomegaly. HARDWARE: Skin rajesh. BONES: No acute fracture. No worrisome bone lesions. OTHER: No other significant finding. IMPRESSION: Ileus versus small-bowel obstruction. TECHNICAL DOCUMENTATION: JOB ID: [id number] 2010 [employer]- All Rights Reserved Reading location - IP/workstation name: [email or web address]
--- NOTE | 2020-02-28 14:18 | PDOC PROGRESS REPORT ---
Subjective Progress Note for:: 02/28/20 Subjective:: Patient states that he is slowly improving. He denies significant pain. He is drinking and belching and trying to pass gas. He is trying to walk in [place] as much as possible. ROS: No dyspnea. No nausea. Reason For Visit: RUPTURED APPENDIX,SEPSIS Physical Exam Vital Signs: Temp Pulse Resp BP Pulse Ox 97.9 F 89 20 152/67 H 94 02/28/20 11:30 02/28/20 13:46 02/28/20 13:46 02/28/20 11:30 02/28/20 13:46 Intake & Output 02/27/20 02/28/20 02/29/20 06:59 06:59 06:59 Intake Total 1253 1091 Output Total 945 225 Balance 308 866 Weight 121.5 kg 121 kg 121 kg General appearance: PRESENT: obese Head exam: PRESENT: normocephalic Respiratory exam: PRESENT: unlabored GI/Abdominal exam: PRESENT: distended, firm Neurological exam: PRESENT: alert, awake Psychiatric exam: PRESENT: appropriate affect Skin exam: PRESENT: normal color Results Laboratory Results: 02/27/20 14:47 02/28/20 06:10 02/27/20 02/27/20 02/28/20 14:47 14:47 06:10 WBC 17.3 H RBC 3.31 L Hgb 10.6 L Hct 31.2 L MCV 94 MCH 32.0 MCHC 34.0 RDW 14.2 H Plt Count 325 Seg Neutrophils % Not Reportable Sodium 137.7 Potassium 3.7 Chloride 102 Carbon Dioxide 29 Anion Gap 7 BUN 21 H Creatinine 0.61 Est GFR ( Amer) > 60 Glucose 98 Calcium 9.8 Magnesium 2.0 Total Bilirubin 0.9 AST 45 Alkaline Phosphatase 180 H Total Protein 6.0 L Albumin 3.1 L 02/28/20 06:10 WBC RBC Hgb Hct MCV MCH MCHC RDW Plt Count Seg Neutrophils % Sodium 137.6 Potassium 3.5 L Chloride 102 Carbon Dioxide 28 Anion Gap 8 BUN 21 H Creatinine 0.64 Est GFR ( Amer) > 60 Glucose 102 Calcium 9.3 Magnesium Total Bilirubin AST Alkaline Phosphatase Total Protein Albumin 02/21/20 02/21/20 02/21/20 16:15 19:29 19:29 CK-MB (CK-2) 1.34 Troponin I 1.170 0.926 NT-Pro-B Natriuret Pep 289 H 02/22/20 02/22/20 00:21 06:01 CK-MB (CK-2) 1.13 0.79 Troponin I 0.587 0.409 NT-Pro-B Natriuret Pep Impressions: Abdomen/Pelvis CT 02/21/20 14:37 IMPRESSION: 1. Increased size of the right lower lobe pulmonary nodule measuring 2.1 cm, previously 1.6 cm. Malignancy is highy suspected. PET-CT or tissue sampling should be considered 2. Dilated appendix with significant pericecal inflammatory change compatible with acute appendicitis. No focal drainable collection. Recommend surgical consultation. 3. Innumerable lucent osseous lesions suggestive neoplasm, likely metastatic disease versus multiple myeloma. Findings discussed with Dr. Gamble At 1519 hours on 02/21/2020. Chest X-Ray 02/22/20 00:00 IMPRESSION: Minimal bibasilar atelectasis with otherwise no acute disease. KUB X-Ray 02/28/20 00:00 IMPRESSION: Ileus versus small-bowel obstruction. Assessment & Plan - Diagnosis (1) Appendicitis Qualifiers: Appendicitis type: acute appendicitis Acute appendicitis type: with localized peritonitis Appendicitis gangrene presence: unspecified whether gangrene present Appendicitis perforation presence: with perforation Appendicitis abscess presence: with abscess Qualified Code(s): K35.33 - Acute appendicitis with perforation and localized peritonitis, with abscess Is this a current diagnosis for this admission?: Yes Plan: Sadly enough, his pathology came back with metastatic lung cancer. I discussed this with the patient in detail. I have explained that he will NOT need lung biopsy or PET CT as outpatient now. However, he does have stage IV lung cancer. (2) Lung nodules Is this a current diagnosis for this admission?: Yes (3) Lung cancer Qualifiers: Laterality: right Lung location: lower lobe of lung Qualified Code(s): C34.31 - Malignant neoplasm of lower lobe, right bronchus or lung Is this a current diagnosis for this admission?: Yes Plan: This is stage IV with mets to the bones and appendix. We discussed the fact that it is not curable, but may be treatable. I will try to obtain PD-L1 and hope to start systemic chemotherapy in 2-4 weeks, after he has recovered from surgery. If CT with contrast of the brain has not yet been done, this should be obtained to complete staging. I will continue to follow. - Time Time Spent with patient: 15-24 minutes
[2020-02-28] MEDS: AZTREONAM 1 GM in DEXTROSE 5%-WATER 50 ML IV SCH ×2 (16:47→21:25)
[2020-02-28] MEDS: VANCOMYCIN HCL 1,250 MG in DEXTROSE 5%-WATER 250 ML IV SCH ×2 (16:52→22:38)
[2020-02-28] MEDS: METRONIDAZOLE 500 MG/NS RTU 500 MG/100 ML RTUPB IV SCH ×2 (16:56→20:00)
[2020-02-28] MEDS: ATORVASTATIN CALCIUM 20 MG TABLET PO SCH (21:25)
[2020-02-28] MEDS: MONTELUKAST SODIUM 10 MG TABLET PO SCH (22:38)
--- NOTE | 2020-02-28 22:53 | Progress Note ---
Provider Note Provider Note: CARDIOLOGY PROGRESS NOTE by Dr. Paris Vargas on 02/28/2020. SUBJECTIVE: The patient is belching and his hiccups have resolved. He is trying to walk. He denies any chest pain discomfort. There is no shortness of breath PND or orthopnea. There is no recurrence of atrial fibrillation. There pathology report came back that the patient's appendix is consistent with metastatic lung cancer. Further recommendations from oncology. There is no ventricle arrhythmia seen on the monitor. PHYSICAL EXAMINATION: The patient is morbidly obese. In no acute distress. Selected Entries 02/28/20 16:22 Temperature 98.3 F Temperature Oral Source Pulse Rate 76 Respiratory 17 Rate Blood Pressure 144/65 H Blood Pressure 91 Mean BP Location Left Arm BP Position Supine O2 Sat by Pulse 97 Oximetry Oxygen Delivery Room Air Method HEAD: Is atraumatic normocephalic. EYES: Pupils are equal round regular reactive light accommodation. ENT is negative NECK: Is supple. There is no JVD. Carotids are equal there is no bruits. There is no lymphadenopathy. There is no goiter. There is no accessory muscle respiration use. LUNGS: There is diminished air entry prolonged expiration. There is no rhonchi rales or wheezing. On percussion there is hyperresonance. HEART: S1-S2 is heard. There is no S3 gallop there is no S4 gallop. There is systolic murmur left sternal border and the apex. There is no rub. ABDOMEN: Is obese. Mildly distended. Bowel sounds are present but weak.. Surgical dressing is dry and clean.. EXTREMITIES femorals are diminished there is no femoral bruits. Leg pulses are diminished. There is no pedal edema. There is no DVT or cellulitis. There is no calf tenderness. There is no cyanosis or clubbing. 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 PSYCHIATRIC: Patient judgment insight are intact his affect is normal. Labs- All tests 24 hr 02/27/20 02/28/20 02/28/20 23:50 05:54 06:10 Sodium Potassium Chloride Carbon Dioxide Anion Gap BUN Creatinine Est GFR ( Amer) Est GFR (MDRD) Non-Af Glucose POC Glucose 105 101 Calcium Magnesium 2.0 02/28/20 02/28/20 02/28/20 06:10 11:30 16:22 Sodium 137.6 Potassium 3.5 L Chloride 102 Carbon Dioxide 28 Anion Gap 8 BUN 21 H Creatinine 0.64 Est GFR ( Amer) > 60 Est GFR (MDRD) Non-Af > 60 Glucose 102 POC Glucose 112 H 109 Calcium 9.3 Magnesium Abdomen/Pelvis CT 02/21/20 14:37 IMPRESSION: 1. Increased size of the right lower lobe pulmonary nodule measuring 2.1 cm, previously 1.6 cm. Malignancy is highy suspected. PET-CT or tissue sampling should be considered 2. Dilated appendix with significant pericecal inflammatory change compatible with acute appendicitis. No focal drainable collection. Recommend surgical consultation. 3. Innumerable lucent osseous lesions suggestive neoplasm, likely metastatic disease versus multiple myeloma. Findings discussed with Dr. Gamble At 1519 hours on 02/21/2020. Chest X-Ray 02/22/20 00:00 IMPRESSION: Minimal bibasilar atelectasis with otherwise no acute disease. KUB X-Ray 02/28/20 00:00 IMPRESSION: Ileus versus small-bowel obstruction. IMPRESSION/RECOMMENDATION: 1. Elevated troponin I secondary to supply demand mismatch. This is due to the patient's acute appendicitis. No evidence of acute coronary syndrome or non-ST elevation NM. The patient's troponin is trended down. There are no acute EKG changes. 2. Acute appendicitis. S/p surgery. The patient has a phlegmon and an ruptured appendiceal abscess. Pathology report shows metastatic lung cancer in the appendicectomy specimen. Primary 3. No evidence of acute coronary syndrome. The patient has no anginal symptoms. The patient on 10/25/2019 has had a negative Cardiolite stress test. Also he has no known history of coronary artery disease. 4. History of paroxysmal l atrial fibrillation: The patient had a brief run of recurrent atrial fibrillation with rapid ventricle response. This reverted back to sinus rhythm when the patient was given flecainide at an earlier time. 5. Hypokalemia: This is resolved. Potassium today is 4.0 6. Hypertension: BP well controlled 7. Hyperlipidemia. 8. COPD: Without exacerbation. 8. Primary lung cancer with bony mets. This will be worked up by oncology. 9. Prior history of cardiomyopathy. The patient's echo in September 2019 showed LV ejection fraction 65 to 70%. 10. Hiccups.This has resolved. Medications reviewed. Medications added. Medical regimen management plan discussed with the attending provider. Medical decision making is of high complexity. 40 minutes (patient more than 50% time spent in direct patient care. Will follow
[2020-02-29] MEDS: METRONIDAZOLE 500 MG/NS RTU 500 MG/100 ML RTUPB IV SCH ×5 (00:53→23:52)
[2020-02-29] MEDS: AZTREONAM 1 GM in DEXTROSE 5%-WATER 50 ML IV SCH ×3 (05:35→21:28)
[2020-02-29] MEDS: DILTIAZEM HCL 30 MG TABLET PO SCH (06:34)
[2020-02-29] MEDS: VANCOMYCIN HCL 1,250 MG in DEXTROSE 5%-WATER 250 ML IV SCH ×3 (07:01→22:11)
[2020-02-29 07:05] LABS: HEMATOCRIT 28.8 % (37.9-51.0); HEMOGLOBIN 9.7 g/dL (13.5-17.0); MEAN CORPUSCULAR HEMOGLOBIN 31.9 pg (27.0-33.4); MEAN CORPUSCULAR HGB CONC 33.8 g/dL (32.0-36.0); MEAN CORPUSCULAR VOLUME 94 fl (80-97); PLATELET COUNT 331 10^3/uL (150-450); RED BLOOD COUNT 3.06 10^6/uL (4.35-5.55); RED CELL DISTRIBUTION WIDTH 13.9 % (11.5-14.0); WHITE BLOOD COUNT 12.6 10^3/uL (4.0-10.5)
[2020-02-29 07:32] LABS: ANION GAP 6 (5-19); BLOOD UREA NITROGEN 15 mg/dL (7-20); CALCIUM 9.2 mg/dL (8.4-10.2); CARBON DIOXIDE 26 mmol/L (22-30); CHLORIDE 102 mmol/L (98-107); GLUCOSE 101 mg/dL (75-110); POTASSIUM 3.8 mmol/L (3.6-5.0)
[2020-02-29 07:39] LABS: ABSOLUTE MONOCYTES # (MANUAL) 0.6 10^3/uL (0.1-1.4); BAND NEUTROPHILS % (MANUAL) 1 % (3-5); BASOPHILS % (MANUAL) 0 % (0-2); EOSINOPHILS % (MANUAL) 1 % (0-6); LYMPHOCYTES % (MANUAL) 15 % (13-45); MONOCYTES % (MANUAL) 5 % (3-13); SEGMENTED NEUTROPHILS % (MAN) 77 % (42-78); TOTAL CELLS COUNTED 100
[2020-02-29 07:41] LABS: ANISOCYTOSIS SLIGHT; HELMET CELLS SLIGHT; PLATELET COMMENT ADEQUATE; PLATELET GIANT PRESENT; POLYCHROMASIA 1+; TEAR DROP CELLS SLIGHT
[2020-02-29] MEDS ORDERED: FUROSEMIDE 40 MG TABLET PO SCH ×2 (08:00→18:00)
--- NOTE | 2020-02-29 08:10 | PDOC PROGRESS REPORT ---
Subjective Progress Note for:: 02/29/20 Subjective:: c/o hiccups distension Reason For Visit: RUPTURED APPENDIX,SEPSIS Physical Exam Vital Signs: Temp Pulse Resp BP Pulse Ox 97.8 F 74 19 132/62 H 100 02/29/20 03:32 02/29/20 07:00 02/29/20 03:32 02/29/20 03:32 02/29/20 03:32 Intake & Output 02/28/20 02/29/20 03/01/20 06:59 06:59 06:59 Intake Total 1091 2479 77 Output Total 225 Balance 866 2479 77 Weight 121 kg 121.7 kg General appearance: PRESENT: mild distress Head exam: PRESENT: normocephalic Eye exam: PRESENT: EOMI Ear exam: PRESENT: normal external ear exam Mouth exam: PRESENT: dry mucosa Neck exam: PRESENT: full ROM Respiratory exam: PRESENT: clear to auscultation anshul Cardiovascular exam: PRESENT: RRR Pulses: PRESENT: normal radial pulses, normal femoral pulses Breast: PRESENT: Normal GI/Abdominal exam: PRESENT: distended, hypoactive bowel sounds Rectal exam: PRESENT: deferred Extremities exam: PRESENT: full ROM Musculoskeletal exam: PRESENT: full ROM Neurological exam: PRESENT: alert, awake, oriented to person, oriented to place Psychiatric exam: PRESENT: appropriate affect Skin exam: PRESENT: dry Results Laboratory Results: 02/29/20 06:36 02/29/20 06:36 02/29/20 02/29/20 06:36 06:36 WBC 12.6 H RBC 3.06 L Hgb 9.7 L Hct 28.8 L MCV 94 MCH 31.9 MCHC 33.8 RDW 13.9 Plt Count 331 Seg Neutrophils % Not Reportable Sodium 133.5 L Potassium 3.8 Chloride 102 Carbon Dioxide 26 Anion Gap 6 BUN 15 Creatinine 0.61 Est GFR ( Amer) > 60 Glucose 101 Calcium 9.2 Magnesium 1.9 02/21/20 02/21/20 02/21/20 16:15 19:29 19:29 CK-MB (CK-2) 1.34 Troponin I 1.170 0.926 NT-Pro-B Natriuret Pep 289 H 02/22/20 02/22/20 00:21 06:01 CK-MB (CK-2) 1.13 0.79 Troponin I 0.587 0.409 NT-Pro-B Natriuret Pep Impressions: Abdomen/Pelvis CT 02/21/20 14:37 IMPRESSION: 1. Increased size of the right lower lobe pulmonary nodule measuring 2.1 cm, previously 1.6 cm. Malignancy is highy suspected. PET-CT or tissue sampling should be considered 2. Dilated appendix with significant pericecal inflammatory change compatible with acute appendicitis. No focal drainable collection. Recommend surgical consultation. 3. Innumerable lucent osseous lesions suggestive neoplasm, likely metastatic disease versus multiple myeloma. Findings discussed with Dr. Gamble At 1519 hours on 02/21/2020. Chest X-Ray 02/22/20 00:00 IMPRESSION: Minimal bibasilar atelectasis with otherwise no acute disease. KUB X-Ray 02/28/20 00:00 IMPRESSION: Ileus versus small-bowel obstruction. Assessment & Plan - Plan Summary Plan Summary: s/p iliocecectomy for cecal mass secondary to metastatic lung cnacer now iwth ileus distension hiccups labs reviwed will cnt iv abx ng placement.
[2020-02-29] MEDS ORDERED: PHARMACY COMMUNICATION ORDER MC NR (08:15)
[2020-02-29] MEDS ORDERED: ACETAMINOPHEN 325 MG TABLET NG PRN (08:30)
[2020-02-29] MEDS: IPRATROPIUM BROMIDE 0.02% NEB 0.5 MG/2.5 ML AMPUL NEB SCH ×3 (09:21→19:55)
--- NOTE | 2020-02-29 10:47 | RADIOLOGY REPORT (SQ) ---
EXAM DESCRIPTION: KUB/ABDOMEN (SINGLE VIEW) IMAGES COMPLETED DATE/TIME: 02/29/2020 9:22 am REASON FOR STUDY: Check Placement of NG Tube COMPARISON: 02/28/2020 NUMBER OF VIEWS: One view. TECHNIQUE: Supine radiographic image of the abdomen acquired. LIMITATIONS: None. FINDINGS: BOWEL GAS PATTERN: Normal bowel gas pattern. No dilated loops. CALCIFICATIONS: No suspicious calcifications. SOFT TISSUES: No gross mass or suggestion of organomegaly. HARDWARE: Interval placement of nasogastric tube, with the tip in the fundus of the stomach, directe d toward the gastroesophageal junction. BONES: No acute fracture. No worrisome bone lesions. OTHER: No other significant finding. IMPRESSION: 1. Interval placement of nasogastric tube since the prior study dated 02/28/2020 as lee hathaway TECHNICAL DOCUMENTATION: JOB ID: [id number] 2010 [employer]- All Rights Reserved Reading location - IP/workstation name: [email or web address]
[2020-02-29] MEDS: LISINOPRIL 10 MG TABLET NG SCH (10:51)
[2020-02-29] MEDS: FLECAINIDE ACETATE 100 MG TABLET NG SCH (10:51)
[2020-02-29] MEDS: ASPIRIN 81 MG TABLET, CHEWABLE NG SCH (10:51)
[2020-02-29] MEDS: FLUTICASONE/UMECLIDIN/VILANTER 100-62.5-25 MCG/DOSE IH SCH (10:52)
[2020-02-29] MEDS: PANTOPRAZOLE SODIUM 40 MG VIAL IV SCH ×2 (10:52→21:28)
[2020-02-29] MEDS: CARVEDILOL 12.5 MG TABLET NG SCH ×2 (10:52→21:27)
[2020-02-29] MEDS: POLYETHYLENE GLYCOL 3350 POWDER 17 GM/1 PACKET NG SCH (10:52)
--- NOTE | 2020-02-29 11:39 | PDOC PROGRESS REPORT ---
Subjective Progress Note for:: 02/29/20 Subjective:: Mr. Adithya Diaz is 69 years old with past medical history of A. fib, CHF, hypertension, hyperlipidemia, COPD, sleep apnea, GERD, who was admitted on 02/22/2020 complaining of abdominal discomfort, nausea, vomiting, anorexia with fever and was found to have a perforated appendix, he is status post partial colectomy by surgery patient initially admitted to ICU and transferred to floor on 02/25/2020. 02/26/2020. No acute events overnight. Patient comfortably sitting up in distress, still complaining of mild abdominal pain otherwise tolerating clear liquids, passing flatus, has not had a bowel movement, denies any shortness of breath, chest pain, nausea, vomiting, diarrhea, constipation or any urinary symptoms. 02/27/2020. Patient complaining of excessive belching and nausea, is passing minimal flatus, has not had a bowel movement, complaining of abdominal d istention and feeling uncomfortable, denies any abdominal pain, shortness of breath, chills, fever, chest pain. 02/28/2020. No acute events overnight. Patient still complaining of some belching otherwise his nausea and abdominal pain are improving, patient is passing some flatus and has tolerated some clear liquids, denies any fever, chills, chest pain, diarrhea, constipation or any urinary symptoms. 02/29/2020. Patient complaining of not getting enough sleep last night, this morning patient having worsening abdominal distention and noted to have a lot of residual after NG tube was placed, patient is passing minimal flatus, has not had a bowel movement, denies any shortness of breath, chest pain, fever or chills. Reason For Visit: RUPTURED APPENDIX,SEPSIS Physical Exam Vital Signs: Temp Pulse Resp BP Pulse Ox 97.8 F 69 18 132/62 H 92 02/29/20 03:32 02/29/20 09:21 02/29/20 09:21 02/29/20 03:32 02/29/20 09:21 Intake & Output 02/28/20 02/29/20 03/01/20 06:59 06:59 06:59 Intake Total 1091 2479 327 Output Total 225 Balance 866 2479 327 Weight 121 kg 121.7 kg General appearance: PRESENT: mild distress, morbidly obese Head exam: PRESENT: atraumatic, normocephalic Respiratory exam: PRESENT: clear to auscultation anshul. ABSENT: rales, rhonchi, wheezes Cardiovascular exam: PRESENT: RRR. ABSENT: diastolic murmur, rubs, systolic murmur GI/Abdominal exam: PRESENT: normal bowel sounds, soft. ABSENT: distended, guarding, mass, organolmegaly, rebound, tenderness Extremities exam: PRESENT: +1 edema Neurological exam: PRESENT: alert, awake, oriented to person, oriented to place, oriented to time, oriented to situation, CN II-XII grossly intact. ABSENT: motor sensory deficit Results Laboratory Results: 02/29/20 06:36 02/29/20 06:36 02/29/20 02/29/20 06:36 06:36 WBC 12.6 H RBC 3.06 L Hgb 9.7 L Hct 28.8 L MCV 94 MCH 31.9 MCHC 33.8 RDW 13.9 Plt Count 331 Seg Neutrophils % Not Reportable Sodium 133.5 L Potassium 3.8 Chloride 102 Carbon Dioxide 26 Anion Gap 6 BUN 15 Creatinine 0.61 Est GFR ( Amer) > 60 Glucose 101 Calcium 9.2 Magnesium 1.9 02/21/20 02/21/20 02/21/20 16:15 19:29 19:29 CK-MB (CK-2) 1.34 Troponin I 1.170 0.926 NT-Pro-B Natriuret Pep 289 H 02/22/20 02/22/20 00:21 06:01 CK-MB (CK-2) 1.13 0.79 Troponin I 0.587 0.409 NT-Pro-B Natriuret Pep Impressions: Abdomen/Pelvis CT 02/21/20 14:37 IMPRESSION: 1. Increased size of the right lower lobe pulmonary nodule measuring 2.1 cm, previously 1.6 cm. Malignancy is highy suspected. PET-CT or tissue sampling should be considered 2. Dilated appendix with significant pericecal inflammatory change compatible with acute appendicitis. No focal drainable collection. Recommend surgical consultation. 3. Innumerable lucent osseous lesions suggestive neoplasm, likely metastatic disease versus multiple myeloma. Findings discussed with Dr. Gamble At 1519 hours on 02/21/2020. Chest X-Ray 02/22/20 00:00 IMPRESSION: Minimal bibasilar atelectasis with otherwise no acute disease. KUB X-Ray 02/29/20 08:07 IMPRESSION: 1. Interval placement of nasogastric tube since the prior study dated 02/28/2020 as above. Assessment and Plan - Diagnosis (1) Status post colon resection Is this a current diagnosis for this admission?: Yes Plan: POD 8 status post ileocolectomy, with intermittent ileus. Secondary to perforated appendiceal metastasis from lung cancer. Passing minimal flatus. High bilious nonbloody residual. Advance diet as tolerated. Monitor his vitals. Encourage ambulation. Surgery on board. Recommendations noted. (2) Peritonitis with abscess of intestine Is this a current diagnosis for this admission?: Yes Plan: Secondary to perforated appendiceal metastasis. Abdominal fluid growing Enterobacter, Streptococcus, Peptostreptococcus and Bacteroides. Afebrile. Worsening leukocytosis. Day #2 IV vancomycin. Day #6 IV aztreonam. Day #6 IV metronidazole. Day #5/14 IV antibiotics. Infectious disease specialist consulted. Recommendation is IV antibiotics for 14 days post source control. (3) Lung cancer Qualifiers: Laterality: unspecified laterality Lung location: unspecified part of lung Qualified Code(s): C34.90 - Malignant neoplasm of unspecified part of unspecified bronchus or lung Is this a current diagnosis for this admission?: Yes Plan: Metastatic stage IV lung cancer. Perforated appendix turned out to be lung metastasis to abdomen. Oncology consult. Chemotherapy is planned once patient is discharged from the hospital. (4) HAIDER (obstructive sleep apnea) Is this a current diagnosis for this admission?: Yes Plan: Nocturnal BiPAP. Supplemental oxygen. (5) Obesity hypoventilation syndrome Is this a current diagnosis for this admission?: Yes Plan: Nocturnal BiPAP. Supplemental oxygen. (6) COPD exacerbation Is this a current diagnosis for this admission?: Yes Plan: Does not seem to be acutely exacerbated. History of COPD oxygen dependent on 2 L nasal cannula. Resume home meds. PRN duo nebs. PRN BiPAP. (7) Atrial fibrillation Qualifiers: Atrial fibrillation type: paroxysmal Qualified Code(s): I48.0 - Paroxysmal atrial fibrillation Is this a current diagnosis for this admission?: Yes Plan: Rate controlled. Status post ablation. On beta-blockers and Cardizem. Not anticoagulated, due to recent abdominal surgery. Home medication is Eliquis 5 mg p.o. twice daily. Continue Cardizem. Continue beta-blockers. Resume Eliquis once appropriate. Cardiology consulted recommendations noted. (8) Appendicitis Qualifiers: Appendicitis type: acute appendicitis Acute appendicitis type: with localized peritonitis Appendicitis gangrene presence: unspecified whether gangrene present Appendicitis perforation presence: with perforation Appendicitis abscess presence: with abscess Qualified Code(s): K35.33 - Acute appendicitis with perforation and localized peritonitis, with abscess Is this a current diagnosis for this admission?: Yes Plan: As above. Initially thought to be deep and started to return at to be metastatic lung cancer as per pathology report. Complicated perforated appendix status post exploratory laparotomy and hemicolectomy.
[2020-02-29] MEDS ORDERED: TEMAZEPAM 15 MG CAPSULE PO PRN (11:42)
--- NOTE | 2020-02-29 11:57 | Progress Note ---
Provider Note Provider Note: CARDIOLOGY PROGRESS NOTE by Dr. Paris Vargas on 02/29/2020. SUBJECTIVE: The patient has developed an ileus and does not NG tube which is draining gastric contents. The patient remains in sinus rhythm with no recurrence of atrial fibrillation. He denies any chest pain or discomfort. There is no cough wheezing or shortness of breath. There is no PND orthopnea or leg edema. There is no ventricle arrhythmia seen on the monitor. PHYSICAL EXAMINATION: The patient is morbidly obese. In no acute distress. Selected Entries 02/29/20 07:38 Temperature 98.1 F Temperature Oral Source Pulse Rate 74 Respiratory 18 Rate Blood Pressure 138/68 H Blood Pressure 91 Mean BP Location Left Arm BP Position Supine O2 Sat by Pulse 97 Oximetry Oxygen Delivery Room Air Method HEAD: Is atraumatic normocephalic. EYES: Pupils are equal round regular reactive light accommodation. ENT is negative NECK: Is supple. There is no JVD. Carotids are equal there is no bruits. There is no lymphadenopathy. There is no goiter. There is no accessory muscle respiration use. LUNGS: There is diminished air entry prolonged expiration. There is no rhonchi rales or wheezing. On percussion there is hyperresonance. HEART: S1-S2 is heard. There is no S3 gallop there is no S4 gallop. There is systolic murmur left sternal border and the apex. There is no rub. ABDOMEN: Is obese. Mildly distended. Bowel sounds are present but very weak.. The patient has an NG tube in situ which is draining fluid. Surgical dressing is dry and clean.. EXTREMITIES femorals are diminished there is no femoral bruits. Leg pulses are diminished. There is no pedal edema. There is no DVT or cellulitis. There is no calf tenderness. There is no cyanosis or clubbing. [employer]: The patient is conscious awake oriented x3 with no focal deficit. PSYCHIATRIC: Patient judgment insight are intact his affect is normal. Labs- All tests 24 hr 02/28/20 02/28/20 02/29/20 16:22 23:43 06:08 WBC RBC Hgb Hct MCV MCH MCHC RDW Plt Count Lymph % (Auto) [place] % (Auto) Eos % (Auto) Baso % (Auto) Absolute Neuts (auto) Absolute Lymphs (auto) Absolute Monos (auto) Absolute Eos (auto) Absolute Basos (auto) Total Counted Seg Neutrophils % Seg Neuts % (Manual) Band Neutrophils % Lymphocytes % (Manual) Atypical Lymphs % Monocytes % (Manual) Eosinophils % (Manual) Basophils % (Manual) Abs Neuts (Manual) Abs Lymphs (Manual) Abs Monocytes (Manual) Absolute Eos (Manual) Abs Basophils (Manual) Giant Platelets Platelet Comment Polychromasia Anisocytosis Tear Drop Cells Helmet Cells Sodium Potassium Chloride Carbon Dioxide Anion Gap BUN Creatinine Est GFR ( Amer) Est GFR (MDRD) Non-Af Glucose POC Glucose 109 119 H 107 Calcium Magnesium 02/29/20 02/29/20 06:36 06:36 WBC 12.6 H RBC 3.06 L Hgb 9.7 L Hct 28.8 L MCV 94 MCH 31.9 MCHC 33.8 RDW 13.9 Plt Count 331 Lymph % (Auto) Not Reportable [place] % (Auto) Not Reportable Eos % (Auto) Not Reportable Baso % (Auto) Not Reportable Absolute Neuts (auto) Not Reportable Absolute Lymphs (auto) Not Reportable Absolute Monos (auto) Not Reportable Absolute Eos (auto) Not Reportable Absolute Basos (auto) Not Reportable Total Counted 100 Seg Neutrophils % Not Reportable Seg Neuts % (Manual) 77 Band Neutrophils % 1 L Lymphocytes % (Manual) 15 Atypical Lymphs % 1 Monocytes % (Manual) 5 Eosinophils % (Manual) 1 Basophils % (Manual) 0 Abs Neuts (Manual) 9.8 H Abs Lymphs (Manual) 2.0 Abs Monocytes (Manual) 0.6 Absolute Eos (Manual) 0.1 Abs Basophils (Manual) 0.0 Giant Platelets PRESENT Platelet Comment ADEQUATE Polychromasia 1+ Anisocytosis SLIGHT Tear Drop Cells SLIGHT Helmet Cells SLIGHT Sodium 133.5 L Potassium 3.8 Chloride 102 Carbon Dioxide 26 Anion Gap 6 BUN 15 Creatinine 0.61 Est GFR ( Amer) > 60 Est GFR (MDRD) Non-Af > 60 Glucose 101 POC Glucose Calcium 9.2 Magnesium 1.9 Abdomen/Pelvis CT 02/21/20 14:37 IMPRESSION: 1. Increased size of the right lower lobe pulmonary nodule measuring 2.1 cm, previously 1.6 cm. Malignancy is highy suspected. PET-CT or tissue sampling should be considered 2. Dilated appendix with significant pericecal inflammatory change compatible with acute appendicitis. No focal drainable collection. Recommend surgical consultation. 3. Innumerable lucent osseous lesions suggestive neoplasm, likely metastatic disease versus multiple myeloma. Findings discussed with Dr. Gamble At 1519 hours on 02/21/2020. Chest X-Ray 02/22/20 00:00 IMPRESSION: Minimal bibasilar atelectasis with otherwise no acute disease. KUB X-Ray 02/28/20 00:00 IMPRESSION: Ileus versus small-bowel obstruction. KUB X-Ray 02/29/20 08:07 IMPRESSION: 1. Interval placement of nasogastric tube since the prior study dated 02/28/2020 as above. IMPRESSION/RECOMMENDATION: 1. Postop ileus: Patient with NG tube. But in view of the patient being on flecainide would recommend that the patient's flecainide be given through the NG tube and to keep the NG tube clamped for at least half an hour after the dose of flecainide. 2. Acute appendicitis. S/p surgery. The patient has a phlegmon and an ruptured appendiceal abscess. Pathology report shows metastatic lung cancer in the appendicectomy specimen. Primary 3. No evidence of acute coronary syndrome. The patient has no anginal symptoms. The patient on 10/25/2019 has had a negative Cardiolite stress test. Also he has no known history of coronary artery disease. Elevated troponin I secondary to supply demand mismatch. This is resolved. 4. History of paroxysmal l atrial fibrillation: The patient had a brief run of recurrent atrial fibrillation with rapid ventricle response. This reverted back to sinus rhythm when the patient was given flecainide at an earlier time. No further recurrence of paroxysmal atrial fibrillation. 5. Hypertension: BP well controlled 6. Hyperlipidemia. 7. COPD: Without exacerbation. 8. Primary lung cancer with bony mets. This will be worked up by oncology. 9. Prior history of cardiomyopathy. The patient's echo in September 2019 showed LV ejection fraction 65 to 70%. Medications reviewed medical regimen and management plan discussed with attending provider. Medical decision making is a moderate complexity. 40 minutes spent as patient more than 50% time spent direct patient care. Will follow.
[2020-02-29] MEDS: DILTIAZEM HCL 30 MG TABLET NG SCH ×2 (14:20→21:28)
[2020-02-29] MEDS: FUROSEMIDE 20 MG TABLET PO SCH (17:27)
[2020-02-29] MEDS: ATORVASTATIN CALCIUM 20 MG TABLET NG SCH (21:28)
[2020-02-29] MEDS: MONTELUKAST SODIUM 10 MG TABLET NG SCH (21:28)
--- NOTE | 2020-02-29 21:37 | RADIOLOGY REPORT (SQ) ---
EXAM DESCRIPTION: CT ABDOMEN PELVIS WITH IV CONTRAST COMPLETED DATE/TME: 02/29/2020 00:00 CLINICAL HISTORY: 69 years, Male, abdominal pain. Partial colectomy. Postoperative ileus., Hx Met Lung Ca COMPARISON: KUB from today and yesterday. TECHNIQUE: Axial images with IV and oral contrast. Sagittal coronal reconstruction. This exam was performed according to our departmental dose-optimization program, which includes automated exposure control, adjustment of the mA and/or kV according to patient size and/or use of iterative reconstruction technique.. Images stored on PACS. FINDINGS: Right lower lobe nodule measures 20 x 17 x 12 mm. Suspicious for metastatic disease. Minimal atelectasis in the left lower lobe. Liver without obvious focal lesions. Cholecystectomy. No evidence for biliary dilatation. Spleen, pancreas, adrenal glands and para-aortic regions are unremarkable. Moderately atherosclerotic aorta without suspicious narrowing or dilatation. Mild atherosclerotic disease at the origin of the branches of the abdominal aorta. Kidneys without acute findings. Small cyst upper pole right kidney. Moderate to prominent gastric distention possibly exaggerated by administered oral contrast. Mild to moderate dilatation of the majority of the small bowel. Distal ileum not dilated. Transition zone suspected in the right lower quadrant. Series 601 image 28 with associated minimal thickening of the small bowel. Surgical clips associated with the right colon which presumably was partially resected. The colon is contracted. No significant peritoneal abnormality. Evaluation of the spine demonstrates erosive changes in the inferior endplate of L2 vertebral body. This is possibly metastatic disease. Cannot exclude aggressive disc abnormality. There are low densities of T7 and T8 vertebral bodies. Series 602 bone windows images 58-62. Also suspected in the anterior aspect of T12, L5 and sacrum. These could represent metastatic disease. CT of the pelvis demonstrates a redundant contracted mildly thickened sigmoid colon. Mild stranding noted in the left pelvis. Series 7 images 70-80. Urinary bladder unremarkable. Prostate mildly enlarged with incidental prostatic stones. IMPRESSION: 1. History of recent colonic resection. On the images from the study, it appears that some portion of the right colon was removed. The remaining colon is not dilated. There is mild thickening in the rectosigmoid colon. There is mild thickening outside the distal colon in the left pelvis. 2. Suspected distal small bowel obstruction. Transition zone possibly identify in right lower quadrant. Very minimal thickening of the small bowel. However this is more likely due to adhesions. 3. Suspected metastatic bone disease in lower thoracic spine and the lumbar spine and sacrum. 4. Right lower lobe nodule more likely metastatic. Mild atelectasis left lower lobe.
[2020-02-29 21:59] LABS: VANCOMYCIN,TROUGH 16.3 ug/mL (5.0-20.0)
--- NOTE | 2020-02-29 23:01 | RADIOLOGY REPORT (SQ) ---
EXAM DESCRIPTION: CT brain with and without contrast. February 29, 2020 at 847 PM CLINICAL HISTORY: Metastatic Lung Cancer COMPARISON: None Available. TECHNIQUE: Contiguous axial images of the brain were obtained before and after the administration of intravenous contrast. This exam was performed according to our departmental dose-optimization program, which includes automated exposure control, adjustment of the mA and/or kV according to patient size and/or use of iterative reconstruction technique. FINDINGS: There is a focal peripherally enhancing mass within the posterior/left occipital lobe measuring approximately 1.1 cm with surrounding edema compatible with metastatic disease. There is atherosclerosis. There is no acute intracranial hemorrhage. Ventricular system is within normal limits. There is no skull fracture. Abnormal opacification of the dependent portion of the maxillary sinuses compatible with sinusitis changes.. IMPRESSION: Peripherally enhancing mass with surrounding edema at the level of the left occipital lobe compatible with metastatic disease.
[2020-03-01] MEDS: AZTREONAM 1 GM in DEXTROSE 5%-WATER 50 ML IV SCH ×3 (05:02→21:20)
[2020-03-01] MEDS: DILTIAZEM HCL 30 MG TABLET NG SCH ×3 (05:55→21:24)
[2020-03-01] MEDS: VANCOMYCIN HCL 1,250 MG in DEXTROSE 5%-WATER 250 ML IV SCH ×3 (06:30→21:56)
[2020-03-01] MEDS: METRONIDAZOLE 500 MG/NS RTU 500 MG/100 ML RTUPB IV SCH ×4 (06:30→23:15)
[2020-03-01] MEDS: IPRATROPIUM BROMIDE 0.02% NEB 0.5 MG/2.5 ML AMPUL NEB SCH ×3 (08:34→19:40)
--- NOTE | 2020-03-01 09:31 | PDOC PROGRESS REPORT ---
Subjective Progress Note for:: 03/01/20 Reason For Visit: RUPTURED APPENDIX,SEPSIS Physical Exam Vital Signs: Temp Pulse Resp BP Pulse Ox 97.5 F 73 16 122/43 L 94 03/01/20 07:00 03/01/20 08:34 03/01/20 08:34 03/01/20 07:00 03/01/20 08:34 Intake & Output 02/29/20 03/01/20 03/02/20 06:59 06:59 06:59 Intake Total 2479 1467 Output Total 3800 Balance 2479 -2333 Weight 121.7 kg 121.8 kg Results Laboratory Results: 02/29/20 06:36 02/29/20 06:36 02/21/20 02/21/20 02/21/20 16:15 19:29 19:29 CK-MB (CK-2) 1.34 Troponin I 1.170 0.926 NT-Pro-B Natriuret Pep 289 H 02/22/20 02/22/20 00:21 06:01 CK-MB (CK-2) 1.13 0.79 Troponin I 0.587 0.409 NT-Pro-B Natriuret Pep Impressions: Chest X-Ray 02/22/20 00:00 IMPRESSION: Minimal bibasilar atelectasis with otherwise no acute disease. Abdomen/Pelvis CT 02/29/20 00:00 IMPRESSION: 1. History of recent colonic resection. On the images from the study, it appears that some portion of the right colon was removed. The remaining colon is not dilated. There is mild thickening in the rectosigmoid colon. There is mild thickening outside the distal colon in the left pelvis. 2. Suspected distal small bowel obstruction. Transition zone possibly identify in right lower quadrant. Very minimal thickening of the small bowel. However this is more likely due to adhesions. 3. Suspected metastatic bone disease in lower thoracic spine and the lumbar spine and sacrum. 4. Right lower lobe nodule more likely metastatic. Mild atelectasis left lower lobe. Head CT 02/29/20 00:00 IMPRESSION: Peripherally enhancing mass with surrounding edema at the level of the left occipital lobe compatible with metastatic disease. KUB X-Ray 02/29/20 08:07 IMPRESSION: 1. Interval placement of nasogastric tube since the prior study dated 02/28/2020 as above. Assessment & Plan - Diagnosis (1) Metastatic lung cancer (metastasis from lung to other site) Qualifiers: Laterality: unspecified laterality Qualified Code(s): C34.90 - Malignant neoplasm of unspecified part of unspecified bronchus or lung Is this a current diagnosis for this admission?: Yes - Plan Summary Plan Summary: This is a 69-year-old male with metastatic lung cancer, involving the cecum and appendix. The patient required insertion of an NG tube, with a large amount of output overnight. He reports passing flatus and having a bowel movement overnight. He is ambulating. I have examined his midline wound today. He con tinues to have serous drainage, however there is no sign of obvious fascial dehiscence. The patient underwent CT scanning of his abdomen last night. There is decompression of his terminal ileum, consistent with a partial obstruction. Repeat x-ray today to evaluate his bowel gas pattern. The patient may require reexploration, if his symptoms of obstruction continue. Further planning to be determined after x-rays.
[2020-03-01] MEDS: POLYETHYLENE GLYCOL 3350 POWDER 17 GM/1 PACKET NG SCH (09:35)
[2020-03-01] MEDS: CARVEDILOL 12.5 MG TABLET NG SCH ×2 (09:35→21:20)
[2020-03-01] MEDS: PANTOPRAZOLE SODIUM 40 MG VIAL IV SCH (09:35)
[2020-03-01] MEDS: FUROSEMIDE 20 MG TABLET PO SCH ×2 (09:36→17:54)
[2020-03-01] MEDS: ASPIRIN 81 MG TABLET, CHEWABLE NG SCH (09:36)
[2020-03-01] MEDS: LISINOPRIL 10 MG TABLET NG SCH (09:36)
[2020-03-01] MEDS: FLECAINIDE ACETATE 100 MG TABLET NG SCH (09:36)
[2020-03-01] MEDS: FLUTICASONE/UMECLIDIN/VILANTER 100-62.5-25 MCG/DOSE IH SCH (09:46)
[2020-03-01] MEDS ORDERED: ACETAMINOPHEN SOLN 325 MG/10.15 ML UDCUP NG PRN (10:56)
--- NOTE | 2020-03-01 10:56 | RADIOLOGY REPORT (SQ) ---
EXAM DESCRIPTION: KUB/ABDOMEN (SINGLE VIEW) IMAGES COMPLETED DATE/TIME: 03/01/2020 10:24 am REASON FOR STUDY: sbo COMPARISON: 02/29/2020 NUMBER OF VIEWS: One view. TECHNIQUE: Supine radiographic image of the abdomen acquired. LIMITATIONS: None. FINDINGS: BOWEL GAS PATTERN: Persistent appearance of multiple gas distended loops of bowel. CALCIFICATIONS: No suspicious calcifications. SOFT TISSUES: No gross mass or suggestion of organomegaly. HARDWARE: Enteric tube with the tip and proximal port projecting subdiaphragmatically. Right upper q uadrant surgical clips. Right hemiabdomen chain suture. BONES: No acute fracture. No worrisome bone lesions. OTHER: A subtle crescentic lucency is seen subjacent to the left hemidiaphragm likely represents a sm all amount of residual intra-abdominal gas in this patient status post laparoscopic surgery 24 hours ago. IMPRESSION: Persistent appearance of multiple gas distended loops of bowel. Enteric tube terminatin g subdiaphragmatically within the left upper quadrant. A small focus of gas seen subjacent to the le ft hemidiaphragm likely represents residual post laparoscopic insufflation gas. TECHNICAL DOCUMENTATION: JOB ID: [id number] 2010 [employer]- All Rights Reserved Reading location - IP/workstation name: [email or web address]
--- NOTE | 2020-03-01 15:51 | PDOC PROGRESS REPORT ---
Subjective Progress Note for:: 03/01/20 Subjective:: Mr. Adithya Diaz is 69 years old with past medical history of A. fib, CHF, hypertension, hyperlipidemia, COPD, sleep apnea, GERD, who was admitted on 02/22/2020 complaining of abdominal discomfort, nausea, vomiting, anorexia with fever and was found to have a perforated appendix, he is status post partial colectomy by surgery patient initially admitted to ICU and transferred to floor on 02/25/2020. 02/26/2020. No acute events overnight. Patient comfortably sitting up in distress, still complaining of mild abdominal pain otherwise tolerating clear liquids, passing flatus, has not had a bowel movement, denies any shortness of breath, chest pain, nausea, vomiting, diarrhea, constipation or any urinary symptoms. 02/27/2020. Patient complaining of excessive belching and nausea, is passing minimal flatus, has not had a bowel movement, complaining of abdominal d istention and feeling uncomfortable, denies any abdominal pain, shortness of breath, chills, fever, chest pain. 02/28/2020. No acute events overnight. Patient still complaining of some belching otherwise his nausea and abdominal pain are improving, patient is passing some flatus and has tolerated some clear liquids, denies any fever, chills, chest pain, diarrhea, constipation or any urinary symptoms. 02/29/2020. Patient complaining of not getting enough sleep last night, this morning patient having worsening abdominal distention and noted to have a lot of residual after NG tube was placed, patient is passing minimal flatus, has not had a bowel movement, denies any shortness of breath, chest pain, fever or chills. 03/01/2020. Patient is still having excessive residual from his NG tube however stating that he is passing more flatus and has had one small bowel movement, abdominal distention is improving, patient is ambulating and tolerating his p.o. intake, denies any chest pain, shortness of breath, fever, chills. Reason For Visit: RUPTURED APPENDIX,SEPSIS Physical Exam Vital Signs: Temp Pulse Resp BP Pulse Ox 97.9 F 66 16 143/63 H 96 03/01/20 12:34 03/01/20 14:00 03/01/20 13:48 03/01/20 12:34 03/01/20 13:48 Intake & Output 02/29/20 03/01/20 03/02/20 06:59 06:59 06:59 Intake Total 2475 1467 950 Output Total 3800 Balance 9339 -2334 950 Weight 121.7 kg 121.8 kg General appearance: PRESENT: no acute distress, well-developed, well-nourished Head exam: PRESENT: atraumatic, normocephalic Respiratory exam: PRESENT: clear to auscultation anshul. ABSENT: rales, rhonchi, wheezes Cardiovascular exam: PRESENT: RRR. ABSENT: diastolic murmur, rubs, systolic murmur GI/Abdominal exam: PRESENT: hypoactive bowel sounds, soft, other - Wound looks clean, no discharge, packing in place, no sign of dehiscence, no tenderness, no erythema.. ABSENT: distended, guarding, mass, organolmegaly, rebound, tenderness Extremities exam: PRESENT: +2 edema Neurological exam: PRESENT: alert, awake, oriented to person, oriented to place, oriented to time, oriented to situation, CN II-XII grossly intact. ABSENT: motor sensory deficit Results Laboratory Results: 02/29/20 06:36 02/29/20 06:36 02/21/20 02/21/20 02/21/20 16:15 19:29 19:29 CK-MB (CK-2) 1.34 Troponin I 1.170 0.926 NT-Pro-B Natriuret Pep 289 H 02/22/20 02/22/20 00:21 06:01 CK-MB (CK-2) 1.13 0.79 Troponin I 0.587 0.409 NT-Pro-B Natriuret Pep Impressions: Chest X-Ray 02/22/20 00:00 IMPRESSION: Minimal bibasilar atelectasis with otherwise no acute disease. Abdomen/Pelvis CT 02/29/20 00:00 IMPRESSION: 1. History of recent colonic resection. On the images from the study, it appears that some portion of the right colon was removed. The remaining colon is not dilated. There is mild thickening in the rectosigmoid colon. There is mild thickening outside the distal colon in the left pelvis. 2. Suspected distal small bowel obstruction. Transition zone possibly identify in right lower quadrant. Very minimal thickening of the small bowel. However this is more likely due to adhesions. 3. Suspected metastatic bone disease in lower thoracic spine and the lumbar spine and sacrum. 4. Right lower lobe nodule more likely metastatic. Mild atelectasis left lower lobe. Head CT 02/29/20 00:00 IMPRESSION: Peripherally enhancing mass with surrounding edema at the level of the left occipital lobe compatible with metastatic disease. KUB X-Ray 03/01/20 00:00 IMPRESSION: Persistent appearance of multiple gas distended loops of bowel. Enteric tube terminating subdiaphragmatically within the left upper quadrant. A small focus of gas seen subjacent to the left hemidiaphragm likely represents residual post laparoscopic insufflation gas. Assessment and Plan - Diagnosis (1) Ileus, postoperative Is this a current diagnosis for this admission?: Yes Plan: POD #9. Patient is passing minimal flatus. Repeat abdominal CT with and without contrast shows suspected distal small bowel obstruction. Surgery following. Repeat KUB pending. Might need repeat laparotomy if no resolution as per surgery note. (2) Status post colon resection Is this a current diagnosis for this admission?: Yes Plan: POD 9 status post ileocolectomy, with intermittent ileus. Secondary to perforated appendiceal metastasis from lung cancer. Passing minimal flatus. High bilious nonbloody residual. Advance diet as tolerated. Monitor his vitals. Encourage ambulation. Surgery on board. Recommendations noted. (3) Peritonitis with abscess of intestine Is this a current diagnosis for this admission?: Yes Plan: Secondary to perforated appendiceal metastasis. Abdominal fluid growing Enterobacter, Streptococcus, Peptostreptococcus and Bacteroides. Afebrile. Worsening leukocytosis. Day #3 IV vancomycin. Day #7 IV aztreonam. Day #7 IV metronidazole. Day #6/14 IV antibiotics. Infectious disease specialist consulted. Recommendation is IV antibiotics for 14 days post source control. (4) Lung cancer Qualifiers: Laterality: unspecified laterality Lung location: unspecified part of lung Qualified Code(s): C34.90 - Malignant neoplasm of unspecified part of unspecified bronchus or lung Is this a current diagnosis for this admission?: Yes Plan: Metastatic stage IV lung cancer. Perforated appendix turned out to be lung metastasis to abdomen. CT head is also positive for metastatic lesion. Oncology consult. Chemotherapy is planned once patient is discharged from the hospital. (5) HAIDER (obstructive sleep apnea) Is this a current diagnosis for this admission?: Yes Plan: Nocturnal BiPAP. Supplemental oxygen. (6) Obesity hypoventilation syndrome Is this a current diagnosis for this admission?: Yes Plan: Nocturnal BiPAP. Supplemental oxygen. (7) COPD exacerbation Is this a current diagnosis for this admission?: Yes Plan: Does not seem to be acutely exacerbated. History of COPD oxygen dependent on 2 L nasal cannula. Resume home meds. PRN duo nebs. PRN BiPAP. (8) Atrial fibrillation Qualifiers: Atrial fibrillation type: paroxysmal Qualified Code(s): I48.0 - Paroxysmal atrial fibrillation Is this a current diagnosis for this admission?: Yes Plan: Rate controlled. Status post ablation. On beta-blockers and Cardizem. Not anticoagulated, due to recent abdominal surgery. Home medication is Eliquis 5 mg p.o. twice daily. Continue Cardizem. Continue beta-blockers. Resume Eliquis once appropriate. Cardiology consulted recommendations noted. (9) Appendicitis Qualifiers: Appendicitis type: acute appendicitis Acute appendicitis type: with localized peritonitis Appendicitis gangrene presence: unspecified whether gangrene present Appendicitis perforation presence: with perforation Appendicitis abscess presence: with abscess Qualified Code(s): K35.33 - Acute appendicitis with perforation and localized peritonitis, with abscess Is this a current diagnosis for this admission?: Yes Plan: As above. Initially thought to be deep and started to return at to be metastatic lung cancer as per pathology report. Complicated perforated appendix status post exploratory laparotomy and hemicolectomy.
[2020-03-01] MEDS: MORPHINE SULFATE 10 MG/ML INJ IV PRN (20:28)
[2020-03-01] MEDS: MONTELUKAST SODIUM 10 MG TABLET NG SCH (21:19)
[2020-03-01] MEDS: ATORVASTATIN CALCIUM 20 MG TABLET NG SCH (21:19)
--- NOTE | 2020-03-01 21:27 | RADIOLOGY REPORT (SQ) ---
EXAM DESCRIPTION: CLINICAL HISTORY: 69 years Male ,through NG, SBO COMPARISON: None. TECHNIQUE: Multiple views of the abdomen were provided prior to and following administration of oral contrast for small bowel follow-through. FINDINGS: Study is limited by body habitus. Preliminary radiograph demonstrates postsurgical change of the midline. There is moderate distention of loops of gas-filled small bowel which may reflect obstruction. Administration of oral contrast via a nasogastric tube. Gastric distention is noted. There is relatively prompt passage of contrast into dilated proximal small bowel. On the one-hour image there has been minimal passage of contrast into small bowel with large volume of contrast remaining in the stomach. Imaging was obtained at five hours without filling of distal small bowel. Large volume of contrast remains in the stomach. Patient vomited 32 ounces of contrast. IMPRESSION: Nonfilling of mid and distal loops of small bowel at five hours. The patient vomited large volume of contrast from the stomach. Delayed imaging to be acquired at two hours
[2020-03-02] MEDS: MORPHINE SULFATE 10 MG/ML INJ IV PRN (01:29)
[2020-03-02] MEDS: VANCOMYCIN HCL 1,250 MG in DEXTROSE 5%-WATER 250 ML IV SCH ×3 (05:06→21:27)
[2020-03-02] MEDS: AZTREONAM 1 GM in DEXTROSE 5%-WATER 50 ML IV SCH ×3 (05:07→21:27)
[2020-03-02] MEDS: DILTIAZEM HCL 30 MG TABLET NG SCH ×3 (05:07→21:26)
[2020-03-02] MEDS: METRONIDAZOLE 500 MG/NS RTU 500 MG/100 ML RTUPB IV SCH ×4 (05:48→23:43)
[2020-03-02 05:58] LABS: ABSOLUTE BASOPHILS # (AUTO) 0.1 10^3/uL (0.0-0.2); ABSOLUTE EOSINOPHILS # (AUTO) 0.2 10^3/uL (0.0-0.6); ABSOLUTE LYMPHOCYTES (AUTO) 2.3 10^3/uL (0.5-4.7); ABSOLUTE MONOCYTES (AUTO) 1.4 10^3/uL (0.1-1.4); ABSOLUTE NEUT (AUTO) 12.3 10^3/uL (1.7-8.2); BASOPHILS % (AUTO) 0.7 % (0-2); EOSINOPHILS % (AUTO) 1.2 % (0-6); HEMATOCRIT 31.7 % (37.9-51.0); HEMOGLOBIN 10.5 g/dL (13.5-17.0); LYMPHOCYTES % (AUTO) 14.4 % (13-45); MEAN CORPUSCULAR HEMOGLOBIN 30.9 pg (27.0-33.4); MEAN CORPUSCULAR HGB CONC 33.1 g/dL (32.0-36.0); MEAN CORPUSCULAR VOLUME 93 fl (80-97); MONOCYTES % (AUTO) 8.5 % (3-13); RED BLOOD COUNT 3.39 10^6/uL (4.35-5.55); RED CELL DISTRIBUTION WIDTH 14.2 % (11.5-14.0); SEGMENTED NEUTROPHILS % (AUTO) 75.2 % (42-78); TOTAL CELLS COUNTED % (AUTO) 100 %; WHITE BLOOD COUNT 16.3 10^3/uL (4.0-10.5)
[2020-03-02 06:13] LABS: ALBUMIN 3.2 g/dL (3.5-5.0); ALKALINE PHOSPHATASE 199 U/L (38-126); ANION GAP 6 (5-19); ASPARTATE AMINO TRANSFERASE 45 U/L (17-59); BILIRUBIN,DIRECT 0.1 mg/dL (0.0-0.4); BILIRUBIN,TOTAL 0.8 mg/dL (0.2-1.3); BLOOD UREA NITROGEN 11 mg/dL (7-20); CALCIUM 9.4 mg/dL (8.4-10.2); CARBON DIOXIDE 30 mmol/L (22-30); CHLORIDE 99 mmol/L (98-107); GLUCOSE 109 mg/dL (75-110); POTASSIUM 3.4 mmol/L (3.6-5.0); TOTAL PROTEIN 6.3 g/dL (6.3-8.2)
[2020-03-02 07:32] LABS: PLATELET COUNT 335 10^3/uL (150-450)
[2020-03-02] MEDS: IPRATROPIUM BROMIDE 0.02% NEB 0.5 MG/2.5 ML AMPUL NEB SCH ×3 (07:39→20:07)
--- NOTE | 2020-03-02 08:06 | PDOC PROGRESS REPORT ---
Subjective Progress Note for:: 03/02/20 Subjective:: abd distended, vomited yesterday ng in place Reason For Visit: RUPTURED APPENDIX,SEPSIS metastatic lung cancer Physical Exam Vital Signs: Temp Pulse Resp BP Pulse Ox 97.5 F 77 16 123/56 L 91 L 03/02/20 03:44 03/02/20 03:44 03/02/20 03:44 03/02/20 03:44 03/02/20 03:44 Intake & Output 03/01/20 03/02/20 03/03/20 06:59 06:59 06:59 Intake Total 1467 2590 Output Total 3800 Balance -2333 2590 Weight 121.8 kg 116.7 kg General appearance: PRESENT: mild distress Head exam: PRESENT: normocephalic Eye exam: PRESENT: EOMI Ear exam: PRESENT: normal external ear exam Mouth exam: PRESENT: moist Neck exam: PRESENT: full ROM Respiratory exam: PRESENT: clear to auscultation anshul Cardiovascular exam: PRESENT: RRR Pulses: PRESENT: normal radial pulses, normal femoral pulses Breast: PRESENT: Normal GI/Abdominal exam: PRESENT: distended, hypoactive bowel sounds Rectal exam: PRESENT: deferred Extremities exam: PRESENT: full ROM Musculoskeletal exam: PRESENT: full ROM Neurological exam: PRESENT: alert, awake, oriented to person, oriented to place Psychiatric exam: PRESENT: appropriate affect Skin exam: PRESENT: dry Results Laboratory Results: 03/02/20 05:32 03/02/20 05:32 03/02/20 03/02/20 05:32 05:32 WBC 16.3 H RBC 3.39 L Hgb 10.5 L Hct 31.7 L MCV 93 MCH 30.9 MCHC 33.1 RDW 14.2 H Plt Count 335 Seg Neutrophils % 75.2 Sodium 135.0 L Potassium 3.4 L Chloride 99 Carbon Dioxide 30 Anion Gap 6 BUN 11 Creatinine 0.64 Est GFR ( Amer) > 60 Glucose 109 Calcium 9.4 Magnesium 2.0 Total Bilirubin 0.8 AST 45 Alkaline Phosphatase 199 H Total Protein 6.3 Albumin 3.2 L 02/21/20 02/21/20 02/21/20 16:15 19:29 19:29 CK-MB (CK-2) 1.34 Troponin I 1.170 0.926 NT-Pro-B Natriuret Pep 289 H 02/22/20 02/22/20 00:21 06:01 CK-MB (CK-2) 1.13 0.79 Troponin I 0.587 0.409 NT-Pro-B Natriuret Pep Impressions: Chest X-Ray 02/22/20 00:00 IMPRESSION: Minimal bibasilar atelectasis with otherwise no acute disease. Abdomen/Pelvis CT 02/29/20 00:00 IMPRESSION: 1. History of recent colonic resection. On the images from the study, it appears that some portion of the right colon was removed. The remaining colon is not dilated. There is mild thickening in the rectosigmoid colon. There is mild thickening outside the distal colon in the left pelvis. 2. Suspected distal small bowel obstruction. Transition zone possibly identify in right lower quadrant. Very minimal thickening of the small bowel. However this is more likely due to adhesions. 3. Suspected metastatic bone disease in lower thoracic spine and the lumbar spine and sacrum. 4. Right lower lobe nodule more likely metastatic. Mild atelectasis left lower lobe. Head CT 02/29/20 00:00 IMPRESSION: Peripherally enhancing mass with surrounding edema at the level of the left occipital lobe compatible with metastatic disease. KUB X-Ray 03/01/20 00:00 IMPRESSION: Persistent appearance of multiple gas distended loops of bowel. Enteric tube terminating subdiaphragmatically within the left upper quadrant. A small focus of gas seen subjacent to the left hemidiaphragm likely represents residual post laparoscopic insufflation gas. Small Bowel X-Ray 03/01/20 00:00 IMPRESSION: Nonfilling of mid and distal loops of small bowel at five hours. The patient vomited large volume of contrast from the stomach. Delayed imaging to be acquired at two hours Assessment & Plan - Plan Summary Plan Summary: s/p ilealcecectomy for metastaic lung cancer now with sbo unclear wheather sbo is at the surgical anastomosis vs mets review of small bowel series surggests more prox obstruction if so, could consider starting chemo with' ng in place vs surgery for sbo will discuss possiblility of multiple tumor mets causing sbo at different locations vs anastomosis obstructin iwth operating surgeon
[2020-03-02] MEDS ORDERED: POTASSI CL 20 MEQ/50 ML RIDER 20 MEQ/50 ML RTUPB IV ONE (08:30)
[2020-03-02] MEDS ORDERED: BUPIVACAINE HCL 0.25 % INJ/PF (2.5 MG/1 ML) 30 ML VIAL ONE (10:01)
[2020-03-02] MEDS ORDERED: ONDANSETRON HCL INJ/PF 4 MG/2 ML SDV ONE (10:05)
[2020-03-02] MEDS ORDERED: MIDAZOLAM 2 MG/2 ML INJ ONE (10:05)
[2020-03-02] MEDS ORDERED: DEXAMETHASONE SOD PHOSPHATE INJ 4 MG/1 ML VIAL ONE (10:05)
[2020-03-02] MEDS ORDERED: SUGAMMADEX SODIUM 200 MG/2 ML SDV IV ONE (10:05)
[2020-03-02] MEDS ORDERED: FENTANYL CITRATE INJ/PF 100 MCG/2 ML AMPUL ONE (10:05)
[2020-03-02] MEDS ORDERED: PROPOFOL INJ 200 MG/20 ML VIAL IV ONE (10:06)
--- NOTE | 2020-03-02 11:28 | PDOC PROGRESS REPORT ---
Subjective Progress Note for:: 03/02/20 Subjective:: Patient states taht he had been doing better, only a small smear of BM yesterday. Some flatus. However, after contrast given for small bowel follow through, he states that "all hell broke loose." He had vomiting, abdominal pain, distension. NG is still in place to suction. He is frustrated about lack of progress and wants to go home. Reason For Visit: RUPTURED APPENDIX,SEPSIS Physical Exam Vital Signs: Temp Pulse Resp BP Pulse Ox 97.8 F 76 21 H 143/60 H 93 03/02/20 08:19 03/02/20 08:19 03/02/20 08:19 03/02/20 08:19 03/02/20 08:19 Intake & Output 03/01/20 03/02/20 03/03/20 06:59 06:59 06:59 Intake Total 1467 2590 Output Total 3800 Balance -2333 2590 Weight 121.8 kg 116.7 kg General appearance: PRESENT: obese Head exam: PRESENT: normocephalic Eye exam: PRESENT: EOMI Respiratory exam: PRESENT: unlabored GI/Abdominal exam: PRESENT: distended, rigid, tenderness Neurological exam: PRESENT: alert, awake, oriented to person, oriented to place, oriented to time, oriented to situation Psychiatric exam: PRESENT: appropriate affect Skin exam: PRESENT: normal color Results Laboratory Results: 03/02/20 05:32 03/02/20 05:32 03/02/20 03/02/20 05:32 05:32 WBC 16.3 H RBC 3.39 L Hgb 10.5 L Hct 31.7 L MCV 93 MCH 30.9 MCHC 33.1 RDW 14.2 H Plt Count 335 Seg Neutrophils % 75.2 Sodium 135.0 L Potassium 3.4 L Chloride 99 Carbon Dioxide 30 Anion Gap 6 BUN 11 Creatinine 0.64 Est GFR ( Amer) > 60 Glucose 109 Calcium 9.4 Magnesium 2.0 Total Bilirubin 0.8 AST 45 Alkaline Phosphatase 199 H Total Protein 6.3 Albumin 3.2 L 02/21/20 02/21/20 02/21/20 16:15 19:29 19:29 CK-MB (CK-2) 1.34 Troponin I 1.170 0.926 NT-Pro-B Natriuret Pep 289 H 02/22/20 02/22/20 00:21 06:01 CK-MB (CK-2) 1.13 0.79 Troponin I 0.587 0.409 NT-Pro-B Natriuret Pep Impressions: Chest X-Ray 02/22/20 00:00 IMPRESSION: Minimal bibasilar atelectasis with otherwise no acute disease. Abdomen/Pelvis CT 02/29/20 00:00 IMPRESSION: 1. History of recent colonic resection. On the images from the study, it appears that some portion of the right colon was removed. The remaining colon is not dilated. There is mild thickening in the rectosigmoid colon. There is mild thickening outside the distal colon in the left pelvis. 2. Suspected distal small bowel obstruction. Transition zone possibly identify in right lower quadrant. Very minimal thickening of the small bowel. However this is more likely due to adhesions. 3. Suspected metastatic bone disease in lower thoracic spine and the lumbar spine and sacrum. 4. Right lower lobe nodule more likely metastatic. Mild atelectasis left lower lobe. Head CT 02/29/20 00:00 IMPRESSION: Peripherally enhancing mass with surrounding edema at the level of the left occipital lobe compatible with metastatic disease. KUB X-Ray 03/01/20 00:00 IMPRESSION: Persistent appearance of multiple gas distended loops of bowel. Enteric tube terminating subdiaphragmatically within the left upper quadrant. A small focus of gas seen subjacent to the left hemidiaphragm likely represents residual post laparoscopic insufflation gas. Small Bowel X-Ray 03/01/20 00:00 IMPRESSION: Nonfilling of mid and distal loops of small bowel at five hours. The patient vomited large volume of contrast from the stomach. Delayed imaging to be acquired at two hours Assessment & Plan - Diagnosis (1) Appendicitis Qualifiers: Appendicitis type: acute appendicitis Acute appendicitis type: with localized peritonitis Appendicitis gangrene presence: unspecified whether gangrene present Appendicitis perforation presence: with perforation Appendicitis abscess presence: with abscess Qualified Code(s): K35.33 - Acute appendicitis with perforation and localized peritonitis, with abscess Is this a current diagnosis for this admission?: Yes (2) Lung nodules Is this a current diagnosis for this admission?: Yes (3) Lung cancer Qualifiers: Laterality: right Lung location: lower lobe of lung Qualified Code(s): C34.31 - Malignant neoplasm of lower lobe, right bronchus or lung Is this a current diagnosis for this admission?: Yes Plan: I discussed further with the patient and his by conference call. I have explained that the cancer may be the cause of the further bowel obstruction. However, since he has just had surgery, giving chemo now, before current surgical wound has healed a bit more is quite risky. He also has the brain mets which although are currently asymptomatic, could become more of an issue very quickly. I would prefer to start brain radiation in the 2 weeks that he is healing from the surgery and then start chemo once all of this has completed. I discussed his problem with both Dr. Rowell as well as Dr. Reza. Will see how the bowels are doing by Thursday and re-evaluate for possible chemo or radiation at that time. - Time Time Spent with patient: 15-24 minutes
[2020-03-02] MEDS ORDERED: FENTANYL CITRATE INJ/PF 100 MCG/2 ML AMPUL IV PRN ×3 (11:51)
[2020-03-02] MEDS ORDERED: ONDANSETRON HCL INJ/PF 4 MG/2 ML SDV IV PRN (11:51)
[2020-03-02] MEDS ORDERED: MORPHINE SULFATE 10 MG/ML INJ IV PRN (11:51)
[2020-03-02] MEDS ORDERED: PROMETHAZINE HCL INJ 25 MG/1 ML VIAL IV PRN ×2 (11:51)
[2020-03-02] MEDS ORDERED: MEPERIDINE HCL/PF INJ 25 MG/1 ML DISP.SYRIN IV PRN (11:51)
[2020-03-02] MEDS ORDERED: DIPHENHYDRAMINE HCL 50 MG/ML VIAL IV PRN (11:51)
--- NOTE | 2020-03-02 12:46 | Operative Report ---
Nonrecallable Operative Report DATE OF SURGERY: 03/02/20 PREOPERATIVE DIAGNOSIS: small bowel obstruction POSTOPERATIVE DIAGNOSIS: small bowel obstruction OPERATION: exploratory laparotomy and lysis of adhesions with. revision of the ileocolonic anastomosis and completion rt hemicolectomy SURGEON: LEIGH WARREN 1ST SAFETY COMPANION: EDIN MULLER ANESTHESIA: GA TISSUE REMOVED OR ALTERED: ileocolonic anastomosis and rt colon COMPLICATIONS: none ESTIMATED BLOOD LOSS: 200 INTRAOPERATIVE FINDINGS: twisted ileocolonic anastomosis and small anastomotic leak PROCEDURE: Patient was brought to the operating awake alert stable condition placed on the operating table supine position induced under general anesthesia intubated. The abdomen was prepped and draped in usual sterile fashion. After proper timeout site verification the procedure commenced. The previous midline incision was opened the previous placed PDS sutures were removed. Upon entering the abdominal cavity there was some ascitic fluid within it but there was no evidence of any purulent material or enteric contents. I extended the abdominal incision proximally proc 8 to 10 cm and distally to the pubic symphysis I then eviscerated the small bowel was all dilated all the way from the ligament of Treitz to the previous ileocolonic anastomosis it appeared that the ileocolonic anastomosis was fixed posteriorly and twisted upon itself causing a twisting of the distal small bowel about 5 to 10 cm from the anastomosis. Once I untwisted it I was able to milk enteric contents from the small bowel into the anastomosis and upon manipulating the anastomosis there was some small leakage of stool from between the staple lines. Therefore elected to revise this. I mobilized the right colon along the white line of Toldt with Bovie cautery to the middle colic vessels. I took the omentum off the transverse colon with the LigaSure device. We then divided the distal small bowel with 1 firing of the Endo URSZULA stapler with a blue load and came across the mesentery with multiple firings of the LigaSure device to the mid transverse colon. I then approximated the transverse colon to the distal ileum and performed a sewn anastomosis in 2 layers to the posterior layer being 3-0 silk interrupted in the running inner layer 3-0 Vicryl. At this point we checked anastomosis with compression and there was no evidence of leak and closed the mesenteric defect with interrupted [id number] placed 2-0 silk sutures. We then copiously irrigated the abdominal cavity suctioned dry. I ran the small bowel from the ligament of Treitz to the anastomosis noted no evidence of any twisting or other sites of stricture or metastatic deposits. I also palpated the stomach and replaced the NG tube having anesthesia placed a new NG tube in manipulating and placed into the antrum. There is a large amount of enteric contents within the stomach that was suctioned out. We then closed the midline fascia with and with a running double looped 0 Maxon suture and closed the skin with standard skin clips which completed the procedure estimated blood loss was 200 cc sponge needle counts were correct x2. BONITA Villarreal was present for the entire case for help with wound retraction wound closure.
[2020-03-02] MEDS: POLYETHYLENE GLYCOL 3350 POWDER 17 GM/1 PACKET NG SCH (12:52)
[2020-03-02] MEDS: ASPIRIN 81 MG TABLET, CHEWABLE NG SCH (12:52)
[2020-03-02] MEDS: FUROSEMIDE 20 MG TABLET PO SCH ×2 (12:52→17:13)
[2020-03-02] MEDS: CARVEDILOL 12.5 MG TABLET NG SCH ×2 (12:52→21:25)
[2020-03-02] MEDS: LISINOPRIL 10 MG TABLET NG SCH (12:52)
[2020-03-02] MEDS: FLUTICASONE/UMECLIDIN/VILANTER 100-62.5-25 MCG/DOSE IH SCH (12:53)
[2020-03-02] MEDS: FLECAINIDE ACETATE 100 MG TABLET NG SCH (12:53)
[2020-03-02] MEDS ORDERED: MORPHINE SULFATE 10 MG/ML INJ ONE (13:15)
[2020-03-02] MEDS: HEPARIN SOD (PORCINE) 5,000 UNIT/ML 1 ML VIAL SUBCUT SCH ×2 (15:06→21:24)
[2020-03-02] MEDS: HYDROMORPHONE HCL INJ/PF 2 MG/ML AMPULE IV PRN ×4 (15:15→23:54)
--- NOTE | 2020-03-02 18:43 | PDOC PROGRESS REPORT ---
Subjective Progress Note for:: 03/02/20 Subjective:: Mr. Adithya Diaz is 69 years old with past medical history of A. fib, CHF, hypertension, hyperlipidemia, COPD, sleep apnea, GERD, who was admitted on 02/22/2020 complaining of abdominal discomfort, nausea, vomiting, anorexia with fever and was found to have a perforated appendix, he is status post partial colectomy by surgery patient initially admitted to ICU and transferred to floor on 02/25/2020. 02/26/2020. No acute events overnight. Patient comfortably sitting up in distress, still complaining of mild abdominal pain otherwise tolerating clear liquids, passing flatus, has not had a bowel movement, denies any shortness of breath, chest pain, nausea, vomiting, diarrhea, constipation or any urinary symptoms. 02/27/2020. Patient complaining of excessive belching and nausea, is passing minimal flatus, has not had a bowel movement, complaining of abdominal d istention and feeling uncomfortable, denies any abdominal pain, shortness of breath, chills, fever, chest pain. 02/28/2020. No acute events overnight. Patient still complaining of some belching otherwise his nausea and abdominal pain are improving, patient is passing some flatus and has tolerated some clear liquids, denies any fever, chills, chest pain, diarrhea, constipation or any urinary symptoms. 02/29/2020. Patient complaining of not getting enough sleep last night, this morning patient having worsening abdominal distention and noted to have a lot of residual after NG tube was placed, patient is passing minimal flatus, has not had a bowel movement, denies any shortness of breath, chest pain, fever or chills. 03/01/2020. Patient is still having excessive residual from his NG tube however stating that he is passing more flatus and has had one small bowel movement, abdominal distention is improving, patient is ambulating and tolerating his p.o. intake, denies any chest pain, shortness of breath, fever, chills. 03/02/2020. No acute events overnight but unfortunately patient's SBO did not improve and he underwent status post revision of ileocolonic anastomosis and right hemicolectomy. Saw patient this morning before going to the OR, still have high residual and has not passed a bowel movement, passing minimal flatus. Complaining of abdominal distention and worsening shortness of breath. Denies any chest pain. shortness of breath.. Reason For Visit: RUPTURED APPENDIX,SEPSIS Physical Exam Vital Signs: Temp Pulse Resp BP Pulse Ox 97.9 F 93 17 103/78 93 03/02/20 16:54 03/02/20 17:12 03/02/20 16:54 03/02/20 16:54 03/02/20 17:12 Intake & Output 03/01/20 03/02/20 03/03/20 06:59 06:59 06:59 Intake Total 1467 2590 3450 Output Total 3800 2950 Balance -2333 2590 500 Weight 121.8 kg 116.7 kg General appearance: PRESENT: mild distress, obese, well-developed, well- nourished Head exam: PRESENT: atraumatic, normocephalic Respiratory exam: PRESENT: clear to auscultation anshul, tachypnea. ABSENT: rales, rhonchi, wheezes Cardiovascular exam: PRESENT: irregular rhythm. ABSENT: diastolic murmur, rubs, systolic murmur GI/Abdominal exam: PRESENT: distended, hypoactive bowel sounds, soft. ABSENT: guarding, mass, organolmegaly, rebound, tenderness Neurological exam: PRESENT: alert, awake, oriented to person, oriented to place, oriented to time, oriented to situation, CN II-XII grossly intact. ABSENT: motor sensory deficit Results Laboratory Results: 03/02/20 05:32 03/02/20 05:32 03/02/20 03/02/20 05:32 05:32 WBC 16.3 H RBC 3.39 L Hgb 10.5 L Hct 31.7 L MCV 93 MCH 30.9 MCHC 33.1 RDW 14.2 H Plt Count 335 Seg Neutrophils % 75.2 Sodium 135.0 L Potassium 3.4 L Chloride 99 Carbon Dioxide 30 Anion Gap 6 BUN 11 Creatinine 0.64 Est GFR ( Amer) > 60 Glucose 109 Calcium 9.4 Magnesium 2.0 Total Bilirubin 0.8 AST 45 Alkaline Phosphatase 199 H Total Protein 6.3 Albumin 3.2 L 02/21/20 02/21/20 02/21/20 16:15 19:29 19:29 CK-MB (CK-2) 1.34 Troponin I 1.170 0.926 NT-Pro-B Natriuret Pep 289 H 02/22/20 02/22/20 00:21 06:01 CK-MB (CK-2) 1.13 0.79 Troponin I 0.587 0.409 NT-Pro-B Natriuret Pep Impressions: Chest X-Ray 02/22/20 00:00 IMPRESSION: Minimal bibasilar atelectasis with otherwise no acute disease. Abdomen/Pelvis CT 02/29/20 00:00 IMPRESSION: 1. History of recent colonic resection. On the images from the study, it appears that some portion of the right colon was removed. The remaining colon is not dilated. There is mild thickening in the rectosigmoid colon. There is mild thickening outside the distal colon in the left pelvis. 2. Suspected distal small bowel obstruction. Transition zone possibly identify in right lower quadrant. Very minimal thickening of the small bowel. However this is more likely due to adhesions. 3. Suspected metastatic bone disease in lower thoracic spine and the lumbar spine and sacrum. 4. Right lower lobe nodule more likely metastatic. Mild atelectasis left lower lobe. Head CT 02/29/20 00:00 IMPRESSION: Peripherally enhancing mass with surrounding edema at the level of the left occipital lobe compatible with metastatic disease. KUB X-Ray 03/01/20 00:00 IMPRESSION: Persistent appearance of multiple gas distended loops of bowel. Enteric tube terminating subdiaphragmatically within the left upper quadrant. A small focus of gas seen subjacent to the left hemidiaphragm likely represents residual post laparoscopic insufflation gas. Small Bowel X-Ray 03/01/20 00:00 IMPRESSION: Nonfilling of mid and distal loops of small bowel at five hours. The patient vomited large volume of contrast from the stomach. Delayed imaging to be acquired at two hours Assessment and Plan - Diagnosis (1) Ileus, postoperative Is this a current diagnosis for this admission?: Yes Plan: status post revision of ileocolonic anastomosis and right hemicolectomy. Surgery following. (2) Status post colon resection Is this a current diagnosis for this admission?: Yes Plan: POD 1 status post revision of ileocolonic anastomosis and right hemicolectomy. POD 9 status post ileocolectomy, with intermittent ileus. Secondary to perforated appendiceal metastasis from lung cancer. Advance diet as tolerated. Monitor his vitals. Encourage ambulation. Surgery on board. Recommendations noted. (3) Peritonitis with abscess of intestine Is this a current diagnosis for this admission?: Yes Plan: Secondary to perforated appendiceal metastasis. Abdominal fluid growing Enterobacter, Streptococcus, Peptostreptococcus and Bacteroides. Afebrile. Worsening leukocytosis. Day #4 IV vancomycin. Day #8 IV aztreonam. Day #8 IV metronidazole. Day #7/14 IV antibiotics. Infectious disease specialist consulted. Recommendation is IV antibiotics for 14 days post source control. (4) Lung cancer Qualifiers: Laterality: unspecified laterality Lung location: unspecified part of lung Qualified Code(s): C34.90 - Malignant neoplasm of unspecified part of unspecified bronchus or lung Is this a current diagnosis for this admission?: Yes Plan: Metastatic stage IV lung cancer. Perforated appendix turned out to be lung metastasis to abdomen. CT head is also positive for metastatic lesion. Oncology consult. Chemotherapy is planned once patient is discharged from the hospital. (5) HAIDER (obstructive sleep apnea) Is this a current diagnosis for this admission?: Yes Plan: Nocturnal BiPAP. Supplemental oxygen. (6) Obesity hypoventilation syndrome Is this a current diagnosis for this admission?: Yes Plan: Nocturnal BiPAP. Supplemental oxygen. (7) COPD exacerbation Is this a current diagnosis for this admission?: Yes Plan: Does not seem to be acutely exacerbated. History of COPD oxygen dependent on 2 L nasal cannula. Resume home meds. PRN duo nebs. PRN BiPAP. (8) Atrial fibrillation Qualifiers: Atrial fibrillation type: paroxysmal Qualified Code(s): I48.0 - Paroxysmal atrial fibrillation Is this a current diagnosis for this admission?: Yes Plan: Rate controlled. Status post ablation. On beta-blockers and Cardizem. Not anticoagulated, due to recent abdominal surgery. Home medication is Eliquis 5 mg p.o. twice daily. Continue Cardizem. Continue beta-blockers. Resume Eliquis once appropriate. Cardiology consulted recommendations noted. (9) Appendicitis Qualifiers: Appendicitis type: acute appendicitis Acute appendicitis type: with localized peritonitis Appendicitis gangrene presence: unspecified whether gangrene present Appendicitis perforation presence: with perforation Appendicitis abscess presence: with abscess Qualified Code(s): K35.33 - Acute appendicitis with perforation and localized peritonitis, with abscess Is this a current diagnosis for this admission?: Yes Plan: As above. Initially thought to be deep and started to return at to be metastatic lung cancer as per pathology report. Complicated perforated appendix status post exploratory laparotomy and [place] colectomy.
[2020-03-02] MEDS: ATORVASTATIN CALCIUM 20 MG TABLET NG SCH (21:26)
[2020-03-02] MEDS: MONTELUKAST SODIUM 10 MG TABLET NG SCH (21:27)
--- NOTE | 2020-03-02 22:53 | Progress Note ---
Provider Note Provider Note: CARDIOLOGY PROGRESS NOTE by Dr. Paris Vargas on 03/02/2020. SUBJECTIVE: The patient had abdominal pain and had to be taken back to the operating room where he was found to have a small bowel obstruction after exploratory laparotomy. He had lysis of additions and revision of ileo-cecal anastomosis. He also had a right hemicolectomy. The patient at present with postop pain. He remains in sinus rhythm. There is no anginal symptoms. There is no TIA CVA symptoms. PHYSICAL EXAMINATION: The patient is morbidly obese. At present in distress due to postop pain. Selected Entries 03/02/20 13:50 Temperature 98.2 F Pulse Rate 72 Respiratory 14 Rate Blood Pressure 108/42 L O2 Sat by Pulse 99 Oximetry HEAD: Is atraumatic normocephalic. EYES: Pupils are equal round regular reactive light accommodation. ENT is negative NECK: Is supple. There is no JVD. Carotids are equal there is no bruits. There is no lymphadenopathy. There is no goiter. There is no accessory muscle respiration use. LUNGS: There is diminished air entry prolonged expiration. There is no rhonchi rales or wheezing. On percussion there is hyperresonance. HEART: S1-S2 is heard. There is no S3 gallop there is no S4 gallop. There is systolic murmur left sternal border and the apex. There is no rub. ABDOMEN: Is obese. Mildly distended. Bowel sounds are present but very weak.. The patient has an NG tube in situ which is draining fluid. Surgical dressing is dry and clean.. EXTREMITIES femorals are diminished there is no femoral bruits. Leg pulses are diminished. There is no pedal edema. There is no DVT or cellulitis. There is no calf tenderness. There is no cyanosis or clubbing. INTERIOR PAINTER: The patient is conscious awake oriented x3 with no focal deficit. PSYCHIATRIC: Patient judgment insight are intact his affect is normal. Labs- All tests 24 hr 03/02/20 03/02/20 03/02/20 05:32 05:32 16:53 WBC 16.3 H RBC 3.39 L Hgb 10.5 L Hct 31.7 L MCV 93 MCH 30.9 MCHC 33.1 RDW 14.2 H Plt Count 335 Lymph % (Auto) 14.4 Potter % (Auto) 8.5 Eos % (Auto) 1.2 Baso % (Auto) 0.7 Absolute Neuts (auto) 12.3 H Absolute Lymphs (auto) 2.3 Absolute Monos (auto) 1.4 Absolute Eos (auto) 0.2 Absolute Basos (auto) 0.1 Seg Neutrophils % 75.2 Sodium 135.0 L Potassium 3.4 L Chloride 99 Carbon Dioxide 30 Anion Gap 6 BUN 11 Creatinine 0.64 Est GFR ( Amer) > 60 Est GFR (MDRD) Non-Af > 60 Glucose 109 POC Glucose 138 H Calcium 9.4 Magnesium 2.0 Total Bilirubin 0.8 Direct Bilirubin 0.1 Neonat Total Bilirubin Not Reportable Neonat Direct Bilirubin Not Reportable Neonat Indirect Bili Not Reportable AST 45 ALT 24 Alkaline Phosphatase 199 H Total Protein 6.3 Albumin 3.2 L Abdomen/Pelvis CT 02/21/20 14:37 IMPRESSION: 1. Increased size of the right lower lobe pulmonary nodule measuring 2.1 cm, previously 1.6 cm. Malignancy is highy suspected. PET-CT or tissue sampling should be considered 2. Dilated appendix with significant pericecal inflammatory change compatible with acute appendicitis. No focal drainable collection. Recommend surgical consultation. 3. Innumerable lucent osseous lesions suggestive neoplasm, likely metastatic disease versus multiple myeloma. Findings discussed with Dr. Gamble At 1519 hours on 02/21/2020. Chest X-Ray 02/22/20 00:00 IMPRESSION: Minimal bibasilar atelectasis with otherwise no acute disease. KUB X-Ray 02/28/20 00:00 IMPRESSION: Ileus versus small-bowel obstruction. Abdomen/Pelvis CT 02/29/20 00:00 IMPRESSION: 1. History of recent colonic resection. On the images from the study, it appears that some portion of the right colon was removed. The remaining colon is not dilated. There is mild thickening in the rectosigmoid colon. There is mild thickening outside the distal colon in the left pelvis. 2. Suspected distal small bowel obstruction. Transition zone possibly identify in right lower quadrant. Very minimal thickening of the small bowel. However this is more likely due to adhesions. 3. Suspected metastatic bone disease in lower thoracic spine and the lumbar spine and sacrum. 4. Right lower lobe nodule more likely metastatic. Mild atelectasis left lower lobe. Head CT 02/29/20 00:00 IMPRESSION: Peripherally enhancing mass with surrounding edema at the level of the left occipital lobe compatible with metastatic disease. KUB X-Ray 02/29/20 08:07 IMPRESSION: 1. Interval placement of nasogastric tube since the prior study dated 02/28/2020 as above. KUB X-Ray 03/01/20 00:00 IMPRESSION: Persistent appearance of multiple gas distended loops of bowel. Enteric tube terminating subdiaphragmatically within the left upper quadrant. A small focus of gas seen subjacent to the left hemidiaphragm likely represents residual post laparoscopic insufflation gas. Small Bowel X-Ray 03/01/20 00:00 IMPRESSION: Nonfilling of mid and distal loops of small bowel at five hours. The patient vomited large volume of contrast from the stomach. Delayed imaging to be acquired at two hours IMPRESSION/RECOMMENDATION: 1. Postop ileus secondary small bowel obstruction s/p revision of earlier cecal anastomosis and lysis of additions. But in view of the patient being on flecainide would recommend that the patient's flecainide be given through the NG tube and to keep the NG tube clamped for at least half an hour after the dose of flecainide. 2. Acute appendicitis. S/p surgery. The patient has a phlegmon and an rupture d appendiceal abscess. Pathology report shows metastatic lung cancer in the appendicectomy specimen. Primary 3. No evidence of acute coronary syndrome. The patient has no anginal symptoms. The patient on 10/25/2019 has had a negative Cardiolite stress test. Also he has no known history of coronary artery disease. Elevated troponin I secondary to supply demand mismatch. This is resolved. 4. History of paroxysmal l atrial fibrillation: The patient had a brief run of recurrent atrial fibrillation with rapid ventricle response. This reverted back to sinus rhythm when the patient was given flecainide at an earlier time. No further recurrence of paroxysmal atrial fibrillation. 5. Hypertension: BP well controlled 6. Hyperlipidemia. 7. COPD: Without exacerbation. 8. Primary lung cancer with bony mets. This will be worked up by oncology. 9. Prior history of cardiomyopathy. The patient's echo in September 2019 showed LV ejection fraction 65 to 70%. Medications reviewed medical regimen and management plan discussed with attending provider. Medical decision making is a moderate complexity. 40 minutes spent as patient more than 50% time spent direct patient care. Will follow.
[2020-03-03] MEDS: HYDROMORPHONE HCL INJ/PF 2 MG/ML AMPULE IV PRN ×5 (04:03→21:00)
[2020-03-03] MEDS: VANCOMYCIN HCL 1,250 MG in DEXTROSE 5%-WATER 250 ML IV SCH (06:00)
[2020-03-03] MEDS: HEPARIN SOD (PORCINE) 5,000 UNIT/ML 1 ML VIAL SUBCUT SCH ×4 (06:01→23:48)
[2020-03-03] MEDS: AZTREONAM 1 GM in DEXTROSE 5%-WATER 50 ML IV SCH ×3 (06:01→23:44)
[2020-03-03] MEDS: DILTIAZEM HCL 30 MG TABLET NG SCH ×2 (06:13→14:30)
[2020-03-03] MEDS: METRONIDAZOLE 500 MG/NS RTU 500 MG/100 ML RTUPB IV SCH ×3 (06:30→18:41)
[2020-03-03 06:32] LABS: HEMATOCRIT 34.7 % (37.9-51.0); HEMOGLOBIN 11.8 g/dL (13.5-17.0); MEAN CORPUSCULAR HEMOGLOBIN 31.8 pg (27.0-33.4); MEAN CORPUSCULAR HGB CONC 33.9 g/dL (32.0-36.0); MEAN CORPUSCULAR VOLUME 94 fl (80-97); PLATELET COUNT 416 10^3/uL (150-450); RED BLOOD COUNT 3.69 10^6/uL (4.35-5.55); RED CELL DISTRIBUTION WIDTH 14.7 % (11.5-14.0)
[2020-03-03 06:37] LABS: ALBUMIN 2.5 g/dL (3.5-5.0); ALKALINE PHOSPHATASE 161 U/L (38-126); ANION GAP 10 (5-19); ASPARTATE AMINO TRANSFERASE 25 U/L (17-59); BILIRUBIN,TOTAL 0.7 mg/dL (0.2-1.3); BLOOD UREA NITROGEN 20 mg/dL (7-20); CALCIUM 8.6 mg/dL (8.4-10.2); CARBON DIOXIDE 27 mmol/L (22-30); CHLORIDE 96 mmol/L (98-107); GLUCOSE 86 mg/dL (75-110); POTASSIUM 4.2 mmol/L (3.6-5.0); TOTAL PROTEIN 5.1 g/dL (6.3-8.2)
[2020-03-03 06:58] LABS: WHITE BLOOD COUNT 30.3 10^3/uL (4.0-10.5)
[2020-03-03] MEDS ORDERED: NORMAL SALINE 1000 ML 1,000 ML IV ONE (07:00)
[2020-03-03] MEDS: IPRATROPIUM BROMIDE 0.02% NEB 0.5 MG/2.5 ML AMPUL NEB SCH ×3 (08:08→20:12)
--- NOTE | 2020-03-03 08:09 | PDOC PROGRESS REPORT ---
Subjective Progress Note for:: 03/03/20 Subjective:: feels a little better Reason For Visit: RUPTURED APPENDIX,SEPSIS Physical Exam Vital Signs: Temp Pulse Resp BP Pulse Ox 97.2 F 106 H 21 H 96/44 L 93 03/03/20 07:30 03/03/20 07:30 03/03/20 07:30 03/03/20 07:30 03/03/20 07:30 Intake & Output 03/02/20 03/03/20 03/04/20 06:59 06:59 06:59 Intake Total 2590 4200 Output Total 3800 Balance 2590 400 Weight 116.7 kg 115.9 kg General appearance: PRESENT: mild distress Head exam: PRESENT: normocephalic Eye exam: PRESENT: EOMI Ear exam: PRESENT: normal external ear exam Mouth exam: PRESENT: moist Neck exam: PRESENT: full ROM Respiratory exam: PRESENT: clear to auscultation anshul Cardiovascular exam: PRESENT: RRR Pulses: PRESENT: normal radial pulses, normal femoral pulses Breast: PRESENT: Normal GI/Abdominal exam: PRESENT: soft - midline incision clean. Rectal exam: PRESENT: deferred Extremities exam: PRESENT: +2 edema Musculoskeletal exam: PRESENT: full ROM Neurological exam: PRESENT: alert, oriented to place Psychiatric exam: PRESENT: appropriate affect Skin exam: PRESENT: dry Results Laboratory Results: 03/03/20 05:38 03/03/20 05:38 03/03/20 03/03/20 05:38 05:38 WBC 30.3 H* RBC 3.69 L Hgb 11.8 L Hct 34.7 L MCV 94 MCH 31.8 MCHC 33.9 RDW 14.7 H Plt Count 416 Sodium 132.8 L Potassium 4.2 Chloride 96 L Carbon Dioxide 27 Anion Gap 10 BUN 20 Creatinine 2.09 H Est GFR ( Amer) 39 L Glucose 86 Calcium 8.6 Magnesium 1.8 Total Bilirubin 0.7 AST 25 Alkaline Phosphatase 161 H Total Protein 5.1 L Albumin 2.5 L 02/21/20 02/21/20 02/21/20 16:15 19:29 19:29 CK-MB (CK-2) 1.34 Troponin I 1.170 0.926 NT-Pro-B Natriuret Pep 289 H 02/22/20 02/22/20 00:21 06:01 CK-MB (CK-2) 1.13 0.79 Troponin I 0.587 0.409 NT-Pro-B Natriuret Pep Impressions: Chest X-Ray 02/22/20 00:00 IMPRESSION: Minimal bibasilar atelectasis with otherwise no acute disease. Abdomen/Pelvis CT 02/29/20 00:00 IMPRESSION: 1. History of recent colonic resection. On the images from the study, it appears that some portion of the right colon was removed. The remaining colon is not dilated. There is mild thickening in the rectosigmoid colon. There is mild thickening outside the distal colon in the left pelvis. 2. Suspected distal small bowel obstruction. Transition zone possibly identify in right lower quadrant. Very minimal thickening of the small bowel. However this is more likely due to adhesions. 3. Suspected metastatic bone disease in lower thoracic spine and the lumbar spine and sacrum. 4. Right lower lobe nodule more likely metastatic. Mild atelectasis left lower lobe. Head CT 02/29/20 00:00 IMPRESSION: Peripherally enhancing mass with surrounding edema at the level of the left occipital lobe compatible with metastatic disease. KUB X-Ray 03/01/20 00:00 IMPRESSION: Persistent appearance of multiple gas distended loops of bowel. Enteric tube terminating subdiaphragmatically within the left upper quadrant. A small focus of gas seen subjacent to the left hemidiaphragm likely represents residual post laparoscopic insufflation gas. Small Bowel X-Ray 03/01/20 00:00 IMPRESSION: Nonfilling of mid and distal loops of small bowel at five hours. The patient vomited large volume of contrast from the stomach. Delayed imaging to be acquired at two hours Assessment & Plan - Plan Summary Plan Summary: pod 1 s/p exploratory laparotomy for sbo and revision of ileocolonic anastomosis pt feels abit better today less abd distension wbc up to 30k hct sl elevated suspect dehydration will bolus iwth 1 liter ns cont observation, ng suction
[2020-03-03] MEDS: CARVEDILOL 12.5 MG TABLET NG SCH ×2 (11:10→23:52)
[2020-03-03] MEDS: LISINOPRIL 10 MG TABLET NG SCH (11:11)
[2020-03-03] MEDS: FLECAINIDE ACETATE 100 MG TABLET NG SCH (11:16)
[2020-03-03] MEDS: POLYETHYLENE GLYCOL 3350 POWDER 17 GM/1 PACKET NG SCH (11:16)
[2020-03-03] MEDS: FLUTICASONE/UMECLIDIN/VILANTER 100-62.5-25 MCG/DOSE IH SCH (11:16)
[2020-03-03] MEDS: ASPIRIN 81 MG TABLET, CHEWABLE NG SCH (11:16)
--- NOTE | 2020-03-03 12:29 | PDOC PROGRESS REPORT ---
Subjective Progress Note for:: 03/03/20 Subjective:: Mr. Adithya Diaz is 69 years old with past medical history of A. fib, CHF, hypertension, hyperlipidemia, COPD, sleep apnea, GERD, who was admitted on 02/22/2020 complaining of abdominal discomfort, nausea, vomiting, anorexia with fever and was found to have a perforated appendix, he is status post partial colectomy by surgery patient initially admitted to ICU and transferred to floor on 02/25/2020. 02/26/2020. No acute events overnight. Patient comfortably sitting up in distress, still complaining of mild abdominal pain otherwise tolerating clear liquids, passing flatus, has not had a bowel movement, denies any shortness of breath, chest pain, nausea, vomiting, diarrhea, constipation or any urinary symptoms. 02/27/2020. Patient complaining of excessive belching and nausea, is passing minimal flatus, has not had a bowel movement, complaining of abdominal d istention and feeling uncomfortable, denies any abdominal pain, shortness of breath, chills, fever, chest pain. 02/28/2020. No acute events overnight. Patient still complaining of some belching otherwise his nausea and abdominal pain are improving, patient is passing some flatus and has tolerated some clear liquids, denies any fever, chills, chest pain, diarrhea, constipation or any urinary symptoms. 02/29/2020. Patient complaining of not getting enough sleep last night, this morning patient having worsening abdominal distention and noted to have a lot of residual after NG tube was placed, patient is passing minimal flatus, has not had a bowel movement, denies any shortness of breath, chest pain, fever or chills. 03/01/2020. Patient is still having excessive residual from his NG tube however stating that he is passing more flatus and has had one small bowel movement, abdominal distention is improving, patient is ambulating and tolerating his p.o. intake, denies any chest pain, shortness of breath, fever, chills. 03/02/2020. No acute events overnight but unfortunately patient's SBO did not improve and he underwent status post revision of ileocolonic anastomosis and right hemicolectomy. Saw patient this morning before going to the OR, still have high residual and has not passed a bowel movement, passing minimal flatus. Complaining of abdominal distention and worsening shortness of breath. Denies any chest pain. shortness of breath. 03/03/2020. Saw patient this morning, complaining of neck pain and persistent abdominal distention, has not passed a bowel movement, is passing minimal flatus, feels groggy today could be due to Dilaudid, following commands and cooperative with physical examination. Denies any shortness of breath, fever, chills, chest pain. Reason For Visit: RUPTURED APPENDIX,SEPSIS Physical Exam Vital Signs: Temp Pulse Resp BP Pulse Ox 97.8 F 100 18 95/42 L 91 L 03/03/20 11:23 03/03/20 11:23 03/03/20 11:23 03/03/20 11:19 03/03/20 11:23 Intake & Output 03/02/20 03/03/20 03/04/20 06:59 06:59 06:59 Intake Total 2590 4200 1350 Output Total 3800 Balance 2590 400 1350 Weight 116.7 kg 115.9 kg General appearance: PRESENT: no acute distress, obese, well-developed, well- nourished Head exam: PRESENT: atraumatic, normocephalic Respiratory exam: PRESENT: clear to auscultation anshul. ABSENT: rales, rhonchi, wheezes Cardiovascular exam: PRESENT: RRR. ABSENT: diastolic murmur, rubs, systolic murmur GI/Abdominal exam: PRESENT: distended, hypoactive bowel sounds, other - Surgical scar looks clean, no discharge. No erythema. Neurological exam: PRESENT: alert, awake, oriented to person, oriented to place, CN II-XII grossly intact. ABSENT: motor sensory deficit Results Laboratory Results: 03/03/20 05:38 03/03/20 05:38 03/03/20 03/03/20 05:38 05:38 WBC 30.3 H* RBC 3.69 L Hgb 11.8 L Hct 34.7 L MCV 94 MCH 31.8 MCHC 33.9 RDW 14.7 H Plt Count 416 Sodium 132.8 L Potassium 4.2 Chloride 96 L Carbon Dioxide 27 Anion Gap 10 BUN 20 Creatinine 2.09 H Est GFR ( Amer) 39 L Glucose 86 Calcium 8.6 Magnesium 1.8 Total Bilirubin 0.7 AST 25 Alkaline Phosphatase 161 H Total Protein 5.1 L Albumin 2.5 L 02/21/20 02/21/20 02/21/20 16:15 19:29 19:29 CK-MB (CK-2) 1.34 Troponin I 1.170 0.926 NT-Pro-B Natriuret Pep 289 H 02/22/20 02/22/20 00:21 06:01 CK-MB (CK-2) 1.13 0.79 Troponin I 0.587 0.409 NT-Pro-B Natriuret Pep Impressions: Chest X-Ray 02/22/20 00:00 IMPRESSION: Minimal bibasilar atelectasis with otherwise no acute disease. Abdomen/Pelvis CT 02/29/20 00:00 IMPRESSION: 1. History of recent colonic resection. On the images from the study, it appears that some portion of the right colon was removed. The remaining colon is not dilated. There is mild thickening in the rectosigmoid colon. There is mild thickening outside the distal colon in the left pelvis. 2. Suspected distal small bowel obstruction. Transition zone possibly identify in right lower quadrant. Very minimal thickening of the small bowel. However this is more likely due to adhesions. 3. Suspected metastatic bone disease in lower thoracic spine and the lumbar spine and sacrum. 4. Right lower lobe nodule more likely metastatic. Mild atelectasis left lower lobe. Head CT 02/29/20 00:00 IMPRESSION: Peripherally enhancing mass with surrounding edema at the level of the left occipital lobe compatible with metastatic disease. KUB X-Ray 03/01/20 00:00 IMPRESSION: Persistent appearance of multiple gas distended loops of bowel. Enteric tube terminating subdiaphragmatically within the left upper quadrant. A small focus of gas seen subjacent to the left hemidiaphragm likely represents residual post laparoscopic insufflation gas. Small Bowel X-Ray 03/01/20 00:00 IMPRESSION: Nonfilling of mid and distal loops of small bowel at five hours. The patient vomited large volume of contrast from the stomach. Delayed imaging to be acquired at two hours Assessment and Plan - Diagnosis (1) Ileus, postoperative Is this a current diagnosis for this admission?: Yes Plan: POD #1 status post laparotomy and revision of ileocolonic anastomosis and right hemicolectomy. Surgery following. (2) Hypotension Qualifiers: Hypotension type: hypotension due to hypovolemia Qualified Code(s): I95.89 - Other hypotension; E86.1 - Hypovolemia Is this a current diagnosis for this admission?: Yes Plan: Patient has low p.o. intake and excessive gastric drainage. Monitor vitals volume status. Continue fluid resuscitation guided by volume status. (3) Status post colon resection Is this a current diagnosis for this admission?: Yes Plan: POD 1 status post 2nd laparotomy and revision of ileocolonic anastomosis and right hemicolectomy. POD 9 status post ileocolectomy, with intermittent ileus. Secondary to perforated appendiceal metastasis from lung cancer. Advance diet as tolerated. Monitor his vitals. Encourage ambulation. Surgery on board. Recommendations noted. (4) Peritonitis with abscess of intestine Is this a current diagnosis for this admission?: Yes Plan: Secondary to perforated appendiceal metastasis. Abdominal fluid growing Enterobacter, Streptococcus, Peptostreptococcus and Bacteroides. Afebrile. Worsening leukocytosis. Day #5 IV vancomycin. Day #9 IV aztreonam. Day #9 IV metronidazole. Day #8/14 IV antibiotics. Infectious disease specialist consulted. Recommendation is IV antibiotics for 14 days post source control. (5) Lung cancer Qualifiers: Laterality: unspecified laterality Lung location: unspecified part of lung Qualified Code(s): C34.90 - Malignant neoplasm of unspecified part of unspecified bronchus or lung Is this a current diagnosis for this admission?: Yes Plan: Metastatic stage IV lung cancer. Perforated appendix turned out to be lung metastasis to abdomen. CT head is also positive for metastatic lesion. Oncology consult. Chemotherapy is planned once patient is discharged from the hospital. (6) HAIDER (obstructive sleep apnea) Is this a current diagnosis for this admission?: Yes Plan: Nocturnal BiPAP. Supplemental oxygen. (7) Obesity hypoventilation syndrome Is this a current diagnosis for this admission?: Yes Plan: Nocturnal BiPAP. Supplemental oxygen. (8) COPD exacerbation Is this a current diagnosis for this admission?: Yes Plan: Does not seem to be acutely exacerbated. History of COPD oxygen dependent on 2 L nasal cannula. Resume home meds. PRN duo nebs. PRN BiPAP. (9) Atrial fibrillation Qualifiers: Atrial fibrillation type: paroxysmal Qualified Code(s): I48.0 - Paroxysmal atrial fibrillation Is this a current diagnosis for this admission?: Yes Plan: Rate controlled. Status post ablation. On beta-blockers and Cardizem. Not anticoagulated, due to recent abdominal surgery. Home medication is Eliquis 5 mg p.o. twice daily. Continue Cardizem. Continue beta-blockers. Resume Eliquis once appropriate. Cardiology consulted recommendations noted. (10) Appendicitis Qualifiers: Appendicitis type: acute appendicitis Acute appendicitis type: with localized peritonitis Appendicitis gangrene presence: unspecified whether gangrene present Appendicitis perforation presence: with perforation Appendicitis abscess presence: with abscess Qualified Code(s): K35.33 - Acute appendicitis with perforation and localized peritonitis, with abscess Is this a current diagnosis for this admission?: Yes Plan: As above. Initially thought to be deep and started to return at to be metastatic lung cancer as per pathology report. Complicated perforated appendix status post exploratory laparotomy and hemicolectomy. (11) VICENTE (acute kidney injury) Is this a current diagnosis for this admission?: Yes Plan: Likely vancomycin induced. Trough is 39.6. Hold vancomycin. Monitor volume status and electrolytes. Replace electrolytes as needed. BMP tomorrow. If no improvement will consult nephrology.
[2020-03-03 14:05] LABS: VANCOMYCIN,TROUGH 39.6 ug/mL (5.0-20.0)
[2020-03-03] MEDS: NORMAL SALINE 1000 ML 1,000 ML IV PRN (14:15)
--- NOTE | 2020-03-03 22:45 | Progress Note ---
Provider Note Provider Note: CARDIOLOGY PROGRESS NOTE by Dr. Paris Vargas on 03/03/2020. SUBJECTIVE: The patient remains in sinus rhythm. He is still his abdomen is distended and bowel sounds are absent. He has not passed any flatus. He has no nausea vomiting he has an NG tube in situ. Intermittently he has been getting flecainide and remains in sinus rhythm. There is no TIA CVA symptoms. His postoperative pain is fairly well controlled. The patient's kidney function has suddenly deteriorated. PHYSICAL EXAMINATION: The patient is morbidly obese. In no major distress. Selected Entries 03/03/20 03/03/20 03/03/20 11:23 12:00 14:30 Temperature 97.8 F Temperature Axillary Source Pulse Rate 100 Heart Rate ( 95 Monitors) Respiratory 18 18 Rate Respiratory Normal Effort Blood Pressure Blood Pressure Mean BP Location Left Arm BP Position Supine O2 Sat by Pulse 94 Oximetry Oxygen Delivery Method ( includes room air) Oxygen Flow 3 Rate 03/03/20 03/03/20 03/03/20 15:00 15:33 15:40 Temperature Temperature Source Pulse Rate Heart Rate ( 97 Monitors) Respiratory Rate Respiratory Effort Blood Pressure 104/50 L Blood Pressure 68 Mean BP Location BP Position O2 Sat by Pulse Oximetry Oxygen Delivery Nasal Cannula Method ( includes room air) Oxygen Flow 3 Rate HEAD: Is atraumatic normocephalic. EYES: Pupils are equal round regular reactive light accommodation. ENT is negative NECK: Is supple. There is no JVD. Carotids are equal there is no bruits. There is no lymphadenopathy. There is no goiter. There is no accessory muscle respiration use. LUNGS: There is diminished air entry prolonged expiration. There is no rhonchi rales or wheezing. On percussion there is hyperresonance. HEART: S1-S2 is heard. There is no S3 gallop there is no S4 gallop. There is systolic murmur left sternal border and the apex. There is no rub. ABDOMEN: Is obese. Mildly distended. Bowel sounds are present but very weak.. The patient has an NG tube in situ which is draining fluid. Surgical dressing is dry and clean.. EXTREMITIES femorals are diminished there is no femoral bruits. Leg pulses are diminished. There is no pedal edema. There is no DVT or cellulitis. There is no calf tenderness. There is no cyanosis or clubbing. 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 PSYCHIATRIC: Patient judgment insight are intact his affect is normal. Labs- All tests 24 hr 03/03/20 03/03/20 03/03/20 05:38 05:38 13:30 WBC 30.3 H* RBC 3.69 L Hgb 11.8 L Hct 34.7 L MCV 94 MCH 31.8 MCHC 33.9 RDW 14.7 H Plt Count 416 Sodium 132.8 L Potassium 4.2 Chloride 96 L Carbon Dioxide 27 Anion Gap 10 BUN 20 Creatinine 2.09 H 2.74 H Est GFR ( Amer) 39 L 28 L Est GFR (MDRD) Non-Af 32 L 23 L Glucose 86 POC Glucose Calcium 8.6 Magnesium 1.8 Total Bilirubin 0.7 Direct Bilirubin 0.0 Neonat Total Bilirubin Not Reportable Neonat Direct Bilirubin Not Reportable Neonat Indirect Bili Not Reportable AST 25 ALT 20 Alkaline Phosphatase 161 H Total Protein 5.1 L Albumin 2.5 L Time Trough Drawn Vancomycin Trough 03/03/20 03/03/20 13:30 16:32 WBC RBC Hgb Hct MCV MCH MCHC RDW Plt Count Sodium Potassium Chloride Carbon Dioxide Anion Gap BUN Creatinine Est GFR ( Amer) Est GFR (MDRD) Non-Af Glucose POC Glucose 120 H Calcium Magnesium Total Bilirubin Direct Bilirubin Neonat Total Bilirubin Neonat Direct Bilirubin Neonat Indirect Bili AST ALT Alkaline Phosphatase Total Protein Albumin Time Trough Drawn 1330 Vancomycin Trough 39.6 H Abdomen/Pelvis CT 02/21/20 14:37 IMPRESSION: 1. Increased size of the right lower lobe pulmonary nodule measuring 2.1 cm, previously 1.6 cm. Malignancy is highy suspected. PET-CT or tissue sampling should be considered 2. Dilated appendix with significant pericecal inflammatory change compatible with acute appendicitis. No focal drainable collection. Recommend surgical consultation. 3. Innumerable lucent osseous lesions suggestive neoplasm, likely metastatic disease versus multiple myeloma. Findings discussed with Dr. Gamble At 1519 hours on 02/21/2020. Chest X-Ray 02/22/20 00:00 IMPRESSION: Minimal bibasilar atelectasis with otherwise no acute disease. KUB X-Ray 02/28/20 00:00 IMPRESSION: Ileus versus small-bowel obstruction. Abdomen/Pelvis CT 02/29/20 00:00 IMPRESSION: 1. History of recent colonic resection. On the images from the study, it appears that some portion of the right colon was removed. The remaining colon is not dilated. There is mild thickening in the rectosigmoid colon. There is mild thickening outside the distal colon in the left pelvis. 2. Suspected distal small bowel obstruction. Transition zone possibly identify in right lower quadrant. Very minimal thickening of the small bowel. However this is more likely due to adhesions. 3. Suspected metastatic bone disease in lower thoracic spine and the lumbar spine and sacrum. 4. Right lower lobe nodule more likely metastatic. Mild atelectasis left lower lobe. Head CT 02/29/20 00:00 IMPRESSION: Peripherally enhancing mass with surrounding edema at the level of the left occipital lobe compatible with metastatic disease. KUB X-Ray 02/29/20 08:07 IMPRESSION: 1. Interval placement of nasogastric tube since the prior study dated 02/28/2020 as above. KUB X-Ray 03/01/20 00:00 IMPRESSION: Persistent appearance of multiple gas distended loops of bowel. Enteric tube terminating subdiaphragmatically within the left upper quadrant. A small focus of gas seen subjacent to the left hemidiaphragm likely represents residual post laparoscopic insufflation gas. Small Bowel X-Ray 03/01/20 00:00 IMPRESSION: Nonfilling of mid and distal loops of small bowel at five hours. The patient vomited large volume of contrast from the stomach. Delayed imaging to be acquired at two hours IMPRESSION/RECOMMENDATION: 1. Postop ileus secondary small bowel obstruction s/p revision of earlier cecal anastomosis and lysis of adhesions. But in view of the patient being on flecainide would recommend that the patient's flecainide be given through the NG tube and to keep the NG tube clamped for at least half an hour after the dose of flecainide. 2. Acute renal failure: Most likely secondary to dehydration. Recommend avoid nephrotoxic drugs. Increase hydration. 3. Acute appendicitis. S/p surgery. The patient has a phlegmon and an ruptured appendiceal abscess. Pathology report shows metastatic lung cancer in the appendicectomy specimen. Primary 4. No evidence of acute coronary syndrome. The patient has no anginal symptoms. The patient on 10/25/2019 has had a negative Cardiolite stress test. Also he has no known history of coronary artery disease. Elevated troponin I secondary to supply demand mismatch. This is resolved. 5. History of paroxysmal l atrial fibrillation: The patient had a brief run of recurrent atrial fibrillation with rapid ventricle response. This reverted back to sinus rhythm when the patient was given flecainide at an earlier time. No further recurrence of paroxysmal atrial fibrillation. 6. Hypertension: BP well controlled 7. Hyperlipidemia. 8. COPD: Without exacerbation. 9. Primary lung cancer with bony mets. This will be worked up by oncology 10.. Prior history of cardiomyopathy. The patient's echo in September 2019 showed LV ejection fraction 65 to 70%. Medications reviewed medical regimen and management plan discussed with attending provider. Medical decision making is a moderate complexity. 40 minutes spent as patient more than 50% time spent direct patient care. Will fol low.
[2020-03-03] MEDS: MONTELUKAST SODIUM 10 MG TABLET NG SCH (23:52)
[2020-03-03] MEDS: ATORVASTATIN CALCIUM 20 MG TABLET NG SCH (23:52)
[2020-03-04] MEDS: DILTIAZEM HCL 30 MG TABLET NG SCH ×4 (00:03→21:45)
[2020-03-04] MEDS: HYDROMORPHONE HCL INJ/PF 2 MG/ML AMPULE IV PRN ×7 (01:14→20:28)
[2020-03-04] MEDS: METRONIDAZOLE 500 MG/NS RTU 500 MG/100 ML RTUPB IV SCH ×4 (01:18→17:02)
[2020-03-04] MEDS: AZTREONAM 1 GM in DEXTROSE 5%-WATER 50 ML IV SCH ×3 (06:07→21:44)
[2020-03-04] MEDS: HEPARIN SOD (PORCINE) 5,000 UNIT/ML 1 ML VIAL SUBCUT SCH ×3 (06:08→21:44)
[2020-03-04 06:26] LABS: HEMATOCRIT 28.7 % (37.9-51.0); MEAN CORPUSCULAR HEMOGLOBIN 31.9 pg (27.0-33.4); MEAN CORPUSCULAR HGB CONC 33.8 g/dL (32.0-36.0); MEAN CORPUSCULAR VOLUME 95 fl (80-97); PLATELET COUNT 376 10^3/uL (150-450); RED BLOOD COUNT 3.04 10^6/uL (4.35-5.55); RED CELL DISTRIBUTION WIDTH 14.7 % (11.5-14.0); WHITE BLOOD COUNT 24.4 10^3/uL (4.0-10.5)
[2020-03-04 06:47] LABS: ANION GAP 9 (5-19); BLOOD UREA NITROGEN 34 mg/dL (7-20); CALCIUM 8.4 mg/dL (8.4-10.2); CARBON DIOXIDE 29 mmol/L (22-30); CHLORIDE 96 mmol/L (98-107); GLUCOSE 88 mg/dL (75-110); PHOSPHORUS 4.4 mg/dL (2.5-4.5); POTASSIUM 3.7 mmol/L (3.6-5.0)
[2020-03-04 06:49] LABS: HEMOGLOBIN 9.7 g/dL (13.5-17.0); VANCOMYCIN,TROUGH 26.5 ug/mL (5.0-20.0)
[2020-03-04] MEDS: IPRATROPIUM BROMIDE 0.02% NEB 0.5 MG/2.5 ML AMPUL NEB SCH ×3 (08:11→19:55)
[2020-03-04] MEDS: POLYETHYLENE GLYCOL 3350 POWDER 17 GM/1 PACKET NG SCH (09:31)
[2020-03-04] MEDS: LISINOPRIL 10 MG TABLET NG SCH (09:31)
[2020-03-04] MEDS: CARVEDILOL 12.5 MG TABLET NG SCH ×2 (09:32→21:45)
[2020-03-04] MEDS: FLECAINIDE ACETATE 100 MG TABLET NG SCH (09:33)
[2020-03-04] MEDS: ASPIRIN 81 MG TABLET, CHEWABLE NG SCH (09:33)
[2020-03-04] MEDS: FLUTICASONE/UMECLIDIN/VILANTER 100-62.5-25 MCG/DOSE IH SCH (09:33)
[2020-03-04 12:19] LABS: AMORPHOUS SEDIMENT,URINE TRACE /HPF; APPEARANCE,URINE CLOUDY; BILIRUBIN,URINE NEGATIVE (NEGATIVE); COLOR,URINE AMBER; GLUCOSE, URINE NEGATIVE (NEGATIVE); KETONES,URINE NEGATIVE (NEGATIVE); PROTEIN,URINE 30 mg/dL (NEGATIVE); URINE SPECIFIC GRAVITY 1.021; UROBILINOGEN,URINE NEGATIVE mg/dL (<2.0)
--- NOTE | 2020-03-04 13:23 | PDOC PROGRESS REPORT ---
Subjective Progress Note for:: 03/04/20 Subjective:: Mr. Adithya Diaz is 69 years old with past medical history of A. fib, CHF, hypertension, hyperlipidemia, COPD, sleep apnea, GERD, who was admitted on 02/22/2020 complaining of abdominal discomfort, nausea, vomiting, anorexia with fever and was found to have a perforated appendix, he is status post partial colectomy by surgery patient initially admitted to ICU and transferred to floor on 02/25/2020. 02/26/2020. No acute events overnight. Patient comfortably sitting up in distress, still complaining of mild abdominal pain otherwise tolerating clear liquids, passing flatus, has not had a bowel movement, denies any shortness of breath, chest pain, nausea, vomiting, diarrhea, constipation or any urinary symptoms. 02/27/2020. Patient complaining of excessive belching and nausea, is passing minimal flatus, has not had a bowel movement, complaining of abdominal d istention and feeling uncomfortable, denies any abdominal pain, shortness of breath, chills, fever, chest pain. 02/28/2020. No acute events overnight. Patient still complaining of some belching otherwise his nausea and abdominal pain are improving, patient is passing some flatus and has tolerated some clear liquids, denies any fever, chills, chest pain, diarrhea, constipation or any urinary symptoms. 02/29/2020. Patient complaining of not getting enough sleep last night, this morning patient having worsening abdominal distention and noted to have a lot of residual after NG tube was placed, patient is passing minimal flatus, has not had a bowel movement, denies any shortness of breath, chest pain, fever or chills. 03/01/2020. Patient is still having excessive residual from his NG tube however stating that he is passing more flatus and has had one small bowel movement, abdominal distention is improving, patient is ambulating and tolerating his p.o. intake, denies any chest pain, shortness of breath, fever, chills. 03/02/2020. No acute events overnight but unfortunately patient's SBO did not improve and he underwent status post revision of ileocolonic anastomosis and right hemicolectomy. Saw patient this morning before going to the OR, still have high residual and has not passed a bowel movement, passing minimal flatus. Complaining of abdominal distention and worsening shortness of breath. Denies any chest pain. shortness of breath. 03/03/2020. Saw patient this morning, complaining of neck pain and persistent abdominal distention, has not passed a bowel movement, is passing minimal flatus, feels groggy today could be due to Dilaudid, following commands and cooperative with physical examination. Denies any shortness of breath, fever, chills, chest pain. 03/04/2020. Patient reporting having a rough night last night, stating he was not able to sleep, was having neck and abdominal pain and was feeling very uncomfortable, this morning he is feeling much better, resting in his recliner, NG tube is out unfortunately patient has not passed any flatus since his rev ision surgery, his pressure been on the soft side and his urine output has not been adequate. Patient denies any nausea or vomiting, still complaining of persistent abdominal distention, denies any shortness of breath, chest pain or fever. Reason For Visit: RUPTURED APPENDIX,SEPSIS Physical Exam Vital Signs: Temp Pulse Resp BP Pulse Ox 98.2 F 103 H 19 98/60 L 91 L 03/04/20 11:12 03/04/20 11:12 03/04/20 11:12 03/04/20 11:34 03/04/20 11:12 Intake & Output 03/03/20 03/04/20 03/05/20 06:59 06:59 06:59 Intake Total 4200 2682 1580 Output Total 5000 1500 350 Balance -800 1182 1230 Weight 115.9 kg 117.3 kg General appearance: PRESENT: mild distress, obese Head exam: PRESENT: atraumatic, normocephalic Respiratory exam: PRESENT: clear to auscultation anshul. ABSENT: rales, rhonchi, wheezes Cardiovascular exam: PRESENT: RRR. ABSENT: diastolic murmur, rubs, systolic murmur GI/Abdominal exam: PRESENT: distended, hypoactive bowel sounds, normal bowel sounds, soft. ABSENT: guarding, mass, organolmegaly, rebound, tenderness Extremities exam: PRESENT: full ROM, +1 edema. ABSENT: calf tenderness, clubbing, pedal edema Neurological exam: PRESENT: alert, awake, oriented to person, oriented to place, oriented to time, oriented to situation, CN II-XII grossly intact. ABSENT: motor sensory deficit Skin exam: PRESENT: dry, intact, warm. ABSENT: cyanosis, rash Results Laboratory Results: 03/04/20 06:05 03/04/20 06:05 03/03/20 03/04/20 03/04/20 13:30 06:05 06:05 WBC 24.4 H RBC 3.04 L Hgb 9.7 L D Hct 28.7 L MCV 95 MCH 31.9 MCHC 33.8 RDW 14.7 H Plt Count 376 Sodium 133.6 L Potassium 3.7 Chloride 96 L Carbon Dioxide 29 Anion Gap 9 BUN 34 H Creatinine 2.74 H 2.93 H Est GFR ( Amer) 28 L 26 L Glucose 88 Calcium 8.4 Phosphorus 4.4 Magnesium 1.9 Urine Color Urine Appearance Urine pH Ur Specific [place] Urine Protein Urine Glucose (UA) Urine Ketones Urine Blood Urine RBC (Auto) 03/04/20 12:00 WBC RBC Hgb Hct MCV MCH MCHC RDW Plt Count Sodium Potassium Chloride Carbon Dioxide Anion Gap BUN Creatinine Est GFR ( Amer) Glucose Calcium Phosphorus Magnesium Urine Color CELESTINO Urine Appearance CLOUDY Urine pH 5.0 Ur Specific [place] 1.021 Urine Protein 30 H Urine Glucose (UA) NEGATIVE Urine Ketones NEGATIVE Urine Blood LARGE H Urine RBC (Auto) 79 02/21/20 02/21/20 02/21/20 16:15 19:29 19:29 CK-MB (CK-2) 1.34 Troponin I 1.170 0.926 NT-Pro-B Natriuret Pep 289 H 02/22/20 02/22/20 00:21 06:01 CK-MB (CK-2) 1.13 0.79 Troponin I 0.587 0.409 NT-Pro-B Natriuret Pep Impressions: Chest X-Ray 02/22/20 00:00 IMPRESSION: Minimal bibasilar atelectasis with otherwise no acute disease. Abdomen/Pelvis CT 02/29/20 00:00 IMPRESSION: 1. History of recent colonic resection. On the images from the study, it appears that some portion of the right colon was removed. The remaining colon is not dilated. There is mild thickening in the rectosigmoid colon. There is mild thickening outside the distal colon in the left pelvis. 2. Suspected distal small bowel obstruction. Transition zone possibly identify in right lower quadrant. Very minimal thickening of the small bowel. However this is more likely due to adhesions. 3. Suspected metastatic bone disease in lower thoracic spine and the lumbar spine and sacrum. 4. Right lower lobe nodule more likely metastatic. Mild atelectasis left lower lobe. Head CT 02/29/20 00:00 IMPRESSION: Peripherally enhancing mass with surrounding edema at the level of the left occipital lobe compatible with metastatic disease. KUB X-Ray 03/01/20 00:00 IMPRESSION: Persistent appearance of multiple gas distended loops of bowel. Enteric tube terminating subdiaphragmatically within the left upper quadrant. A small focus of gas seen subjacent to the left hemidiaphragm likely represents residual post laparoscopic insufflation gas. Small Bowel X-Ray 03/01/20 00:00 IMPRESSION: Nonfilling of mid and distal loops of small bowel at five hours. The patient vomited large volume of contrast from the stomach. Delayed imaging to be acquired at two hours Assessment and Plan - Diagnosis (1) VICENTE (acute kidney injury) Is this a current diagnosis for this admission?: Yes Plan: Patient was oliguric yesterday. Urine output mild improvement. This was likely vancomycin induced placated by postsurgical hypotension. Vancomycin trough 26.5 down from 39.6. FeNa 0.15%. Patient was also on Lasix, hence FeNA may not be reliable. Will get FEUr Pending renal ultrasound. Hold vancomycin. Strict and outs. Monitor volume status and electrolytes. Replace electrolytes as needed. BMP tomorrow. Neurology consulted. Pending recommendations. (2) Ileus, postoperative Is this a current diagnosis for this admission?: Yes Plan: POD #1 status post laparotomy and revision of ileocolonic anastomosis and right hemicolectomy. Unfortunately patient is still not passing any flatus and has persistent abdominal distention. Surgery following. NG tube is out. (3) Hypotension Qualifiers: Hypotension type: hypotension due to hypovolemia Qualified Code(s): I95.89 - Other hypotension; E86.1 - Hypovolemia Is this a current diagnosis for this admission?: Yes Plan: Patient has low p.o. intake and excessive gastric drainage with worsening leukocytosis however afebrile. Is already on broad-spectrum IV antibiotics. Monitor vitals volume status. Hold antihypertensives if MAP <65 or symptomatic. Continue fluid resuscitation guided by volume status. (4) Status post colon resection Is this a current diagnosis for this admission?: Yes Plan: POD 2 status post 2nd laparotomy and revision of ileocolonic anastomosis and ri ght hemicolectomy. POD 10 status post ileocolectomy, with intermittent ileus. Secondary to perforated appendiceal metastasis from lung cancer. Advance diet as tolerated. Monitor his vitals. Encourage ambulation. Surgery on board. Recommendations noted. (5) Peritonitis with abscess of intestine Is this a current diagnosis for this admission?: Yes Plan: Secondary to perforated appendiceal metastasis. Abdominal fluid growing Enterobacter, Streptococcus, Peptostreptococcus and Bacteroides. Afebrile. Worsening leukocytosis. Day #6 IV vancomycin. Day #10 IV aztreonam. Day #10 IV metronidazole. Day #9/14 IV antibiotics. Infectious disease specialist consulted. Recommendation is IV antibiotics for 14 days post source control. (6) Lung cancer Qualifiers: Laterality: unspecified laterality Lung location: unspecified part of lung Qualified Code(s): C34.90 - Malignant neoplasm of unspecified part of unspecified bronchus or lung Is this a current diagnosis for this admission?: Yes Plan: Metastatic stage IV lung cancer. Perforated appendix turned out to be lung metastasis to abdomen. CT head is also positive for metastatic lesion. Oncology consult. Chemotherapy is planned once patient is discharged from the hospital. (7) HAIDER (obstructive sleep apnea) Is this a current diagnosis for this admission?: Yes Plan: Nocturnal BiPAP. Supplemental oxygen. (8) Obesity hypoventilation syndrome Is this a current diagnosis for this admission?: Yes Plan: Nocturnal BiPAP. Supplemental oxygen. (9) COPD exacerbation Is this a current diagnosis for this admission?: Yes Plan: Does not seem to be acutely exacerbated. History of COPD oxygen dependent on 2 L nasal cannula. Resume home meds. PRN duo nebs. PRN BiPAP. (10) Atrial fibrillation Qualifiers: Atrial fibrillation type: paroxysmal Qualified Code(s): I48.0 - Paroxysmal atrial fibrillation Is this a current diagnosis for this admission?: Yes Plan: Rate controlled. Status post ablation. On beta-blockers and Cardizem. Not anticoagulated, due to recent abdominal surgery. Home medication is Eliquis 5 mg p.o. twice daily. Continue Cardizem. Continue beta-blockers. Resume Eliquis once appropriate. Cardiology consulted recommendations noted. (11) Appendicitis Qualifiers: Appendicitis type: acute appendicitis Acute appendicitis type: with localized peritonitis Appendicitis gangrene presence: unspecified whether gangrene present Appendicitis perforation presence: with perforation Appendicitis abscess presence: with abscess Qualified Code(s): K35.33 - Acute appendicitis with perforation and localized peritonitis, with abscess Is this a current diagnosis for this admission?: Yes Plan: As above. Initially thought to be deep and started to return at to be metastatic lung cancer as per pathology report. Complicated perforated appendix status post exploratory laparotomy and hemicolectomy.
--- NOTE | 2020-03-04 15:14 | RADIOLOGY REPORT (SQ) ---
EXAM DESCRIPTION: U/S RETROPERITON (RENAL/AORTA) IMAGES COMPLETED DATE/TIME: 03/04/2020 2:14 pm REASON FOR STUDY: VICENTE COMPARISON: Acoustical interference from bowel gas largely obscures the right kidney. TECHNIQUE: Dynamic and static grayscale images acquired of the kidneys and bladder and recorded on P ACS. Additional selected color Doppler and spectral images recorded. LIMITATIONS: None. FINDINGS: RIGHT KIDNEY: Poorly seen. No gross mass or obstruction. LEFT KIDNEY: Normal size. Normal echogenicity. No mass or stones or hydronephrosis. BLADDER: Not seen, Ross catheter reportedly in place. OTHER FINDINGS: No other significant finding. IMPRESSION: 1. Poor evaluation of the right kidney. 2. Left kidney looks unremarkable. 3. Bladder not seen, decompressed by a Ross catheter. TECHNICAL DOCUMENTATION: JOB ID: [id number] 2010 [employer]- All Rights Reserved Reading location - IP/workstation name: [email or web address]
--- NOTE | 2020-03-04 15:51 | PDOC PROGRESS REPORT ---
Subjective Reason For Visit: RUPTURED APPENDIX,SEPSIS Patient had a better day, sat on commode and forwarded. Nasogastric tube came out last night and left out. Physical Exam Vital Signs: Temp Pulse Resp BP Pulse Ox 98.2 F 103 H 19 98/60 L 91 L 03/04/20 11:12 03/04/20 11:12 03/04/20 11:12 03/04/20 11:34 03/04/20 11:12 Intake & Output 03/03/20 03/04/20 03/05/20 06:59 06:59 06:59 Intake Total 4200 2682 1680 Output Total 5000 1500 350 Balance -800 1182 1330 Weight 115.9 kg 117.3 kg General appearance: PRESENT: no acute distress GI/Abdominal exam: PRESENT: other - Abdomen examined. Dressing removed and left open to air. Abdomen is soft and only minimally tender in areas Results Laboratory Results: 03/04/20 06:05 03/04/20 06:05 03/04/20 03/04/20 03/04/20 06:05 06:05 12:00 WBC 24.4 H RBC 3.04 L Hgb 9.7 L D Hct 28.7 L MCV 95 MCH 31.9 MCHC 33.8 RDW 14.7 H Plt Count 376 Sodium 133.6 L Potassium 3.7 Chloride 96 L Carbon Dioxide 29 Anion Gap 9 BUN 34 H Creatinine 2.93 H Est GFR ( Amer) 26 L Glucose 88 Calcium 8.4 Phosphorus 4.4 Magnesium 1.9 Urine Color CELESTINO Urine Appearance CLOUDY Urine pH 5.0 Ur Specific [place] 1.021 Urine Protein 30 H Urine Glucose (UA) NEGATIVE Urine Ketones NEGATIVE Urine Blood LARGE H Urine RBC (Auto) 79 02/21/20 02/21/20 02/21/20 16:15 19:29 19:29 CK-MB (CK-2) 1.34 Troponin I 1.170 0.926 NT-Pro-B Natriuret Pep 289 H 02/22/20 02/22/20 00:21 06:01 CK-MB (CK-2) 1.13 0.79 Troponin I 0.587 0.409 NT-Pro-B Natriuret Pep Impressions: Chest X-Ray 02/22/20 00:00 IMPRESSION: Minimal bibasilar atelectasis with otherwise no acute disease. Abdomen/Pelvis CT 02/29/20 00:00 IMPRESSION: 1. History of recent colonic resection. On the images from the study, it appears that some portion of the right colon was removed. The remaining colon is not dilated. There is mild thickening in the rectosigmoid colon. There is mild thickening outside the distal colon in the left pelvis. 2. Suspected distal small bowel obstruction. Transition zone possibly identify in right lower quadrant. Very minimal thickening of the small bowel. However this is more likely due to adhesions. 3. Suspected metastatic bone disease in lower thoracic spine and the lumbar spine and sacrum. 4. Right lower lobe nodule more likely metastatic. Mild atelectasis left lower lobe. Head CT 02/29/20 00:00 IMPRESSION: Peripherally enhancing mass with surrounding edema at the level of the left occipital lobe compatible with metastatic disease. KUB X-Ray 03/01/20 00:00 IMPRESSION: Persistent appearance of multiple gas distended loops of bowel. Enteric tube terminating subdiaphragmatically within the left upper quadrant. A small focus of gas seen subjacent to the left hemidiaphragm likely represents residual post laparoscopic insufflation gas. Small Bowel X-Ray 03/01/20 00:00 IMPRESSION: Nonfilling of mid and distal loops of small bowel at five hours. The patient vomited large volume of contrast from the stomach. Delayed imaging to be acquired at two hours Renal Ultrasound 03/04/20 00:00 IMPRESSION: 1. Poor evaluation of the right kidney. 2. Left kidney looks unremarkable. 3. Bladder not seen, decompressed by a Ross catheter. Assessment & Plan - Diagnosis (1) Status post colon resection Is this a current diagnosis for this admission?: Yes (2) COPD exacerbation Is this a current diagnosis for this admission?: Yes (3) S/P cecostomy Plan: Impression: Patient is 1/2-day status post takeback, exploratory laparotomy, completion colectomy with ileotransverse colostomy for anastomotic leak and distal bowel obstruction, doing well, with early return of bowel function Recommendations: 1. Continue increasing physical activity 2. Patient with rising creatinine; renal ultrasound performed this afternoon 3. Hopefully can advance diet tomorrow.
--- NOTE | 2020-03-04 16:55 | Progress Note ---
Provider Note Provider Note: CARDIOLOGY PROGRESS NOTE by Dr. Paris Vargas on 03/04/2020. SUBJECTIVE: The patient is in a lot of pain at the operative site. He still has not passed flatus. He remains in sinus rhythm. There is no anginal symptoms. There is no complaints of shortness of breath PND orthopnea or leg edema. His NG tube is out. PHYSICAL EXAMINATION: The patient is morbidly obese in distress due to postop pain. He will be getting his pain medications immediately. Selected Entries 03/04/20 11:12 Temperature 98.2 F Temperature Oral Source Pulse Rate 103 H Respiratory 19 Rate Blood Pressure 95/36 L Blood Pressure 55 Mean BP Location Left Arm BP Position Sitting O2 Sat by Pulse 91 L Oximetry Oxygen Flow 3.00 Rate Oxygen Delivery Nasal Cannula Method HEAD: Is atraumatic normocephalic. EYES: Pupils are equal round regular reactive light accommodation. ENT is negative NECK: Is supple. There is no JVD. Carotids are equal there is no bruits. There is no lymphadenopathy. There is no goiter. There is no accessory muscle respiration use. LUNGS: There is diminished air entry prolonged expiration. There is no rhonchi rales or wheezing. On percussion there is hyperresonance. HEART: S1-S2 is heard. There is no S3 gallop there is no S4 gallop. There is systolic murmur left sternal border and the apex. There is no rub. ABDOMEN: Is obese. Mildly distended. Bowel sounds are present but very weak.. The patient has an NG tube in situ which is draining fluid. Surgical dressing is dry and clean.. EXTREMITIES femorals are diminished there is no femoral bruits. Leg pulses are diminished. There is no pedal edema. There is no DVT or cellulitis. There is no calf tenderness. There is no cyanosis or clubbing. [employer] WORK[employer]: The patient is conscious awake oriented x3 with no focal deficit. PSYCHIATRIC: Patient judgment insight are intact his affect is normal. Labs- All tests 24 hr 03/03/20 03/04/20 03/04/20 16:32 06:05 06:05 WBC 24.4 H RBC 3.04 L Hgb 9.7 L D Hct 28.7 L MCV 95 MCH 31.9 MCHC 33.8 RDW 14.7 H Plt Count 376 Sodium 133.6 L Potassium 3.7 Chloride 96 L Carbon Dioxide 29 Anion Gap 9 BUN 34 H Creatinine 2.93 H Est GFR ( Amer) 26 L Est GFR (MDRD) Non-Af 22 L Glucose 88 POC Glucose 120 H Calcium 8.4 Phosphorus 4.4 Magnesium 1.9 Urine Color Urine Appearance Urine pH Ur Specific [place] Urine Protein Urine Glucose (UA) Urine Ketones Urine Blood Urine Nitrite (Reflex) Urine Bilirubin Urine Urobilinogen Leukocyte Esterase Rfl Urine RBC (Auto) Urine Bacteria (Auto) Urine WBC (Reflex) Squamous Epi Cells Auto Amorphous Sediment Auto Urine Mucus (Auto) Urine Creatinine Urine Sodium Urine Ascorbic Acid Time Trough Drawn Vancomycin Trough 03/04/20 03/04/20 03/04/20 06:05 12:00 12:00 WBC RBC Hgb Hct MCV MCH MCHC RDW Plt Count Sodium Potassium Chloride Carbon Dioxide Anion Gap BUN Creatinine Est GFR ( Amer) Est GFR (MDRD) Non-Af Glucose POC Glucose Calcium Phosphorus Magnesium Urine Color CELESTINO Urine Appearance CLOUDY Urine pH 5.0 Ur Specific [place] 1.021 Urine Protein 30 H Urine Glucose (UA) NEGATIVE Urine Ketones NEGATIVE Urine Blood LARGE H Urine Nitrite (Reflex) NEGATIVE Urine Bilirubin NEGATIVE Urine Urobilinogen NEGATIVE Leukocyte Esterase Rfl SMALL H Urine RBC (Auto) 79 Urine Bacteria (Auto) TRACE Urine WBC (Reflex) 25 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 Postop ileus secondary small bowel obstruction s/p revision of earlier cecal anastomosis and lysis of adhesions. But in view of the patient being on flecainide would recommend that the patient's flecainide be given through the NG tube and to keep the NG tube clamped for at least half an hour after the dose of flecainide. 2. Renal function is decreased. Recommend increasing hydration. 3. Acute appendicitis. S/p surgery. The patient has a phlegmon and an ruptured appendiceal abscess. Pathology report shows metastatic lung cancer in the appendicectomy specimen. Primary 4. No evidence of acute coronary syndrome. The patient has no anginal symptoms. The patient on 10/25/2019 has had a negative Cardiolite stress test. Also he has no known history of coronary artery disease. Elevated troponin I secondary to supply demand mismatch. This is resolved. 5. History of paroxysmal l atrial fibrillation: The patient had a brief run of recurrent atrial fibrillation with rapid ventricle response. This reverted back to sinus rhythm when the patient was given flecainide at an earlier time. No further recurrence of paroxysmal atrial fibrillation. 6. Hypertension: BP well controlled 7. Hyperlipidemia. 8. COPD: Without exacerbation. 9. Primary lung cancer with bony mets. This will be worked up by oncology. 10. Prior history of cardiomyopathy. The patient's echo in September 2019 showed LV ejection fraction 65 to 70%. Medications reviewed medical regimen and management plan discussed with attending provider. Medical decision making is a moderate complexity. 40 minutes spent as patient more than 50% time spent direct patient care. Will follow.
[2020-03-04] MEDS: NORMAL SALINE 1000 ML 1,000 ML IV PRN (20:00)
[2020-03-04] MEDS: MONTELUKAST SODIUM 10 MG TABLET NG SCH (21:43)
[2020-03-04] MEDS: ATORVASTATIN CALCIUM 20 MG TABLET NG SCH (21:43)
[2020-03-05] MEDS: METRONIDAZOLE 500 MG/NS RTU 500 MG/100 ML RTUPB IV SCH ×5 (00:35→23:53)
[2020-03-05] MEDS: HYDROMORPHONE HCL INJ/PF 2 MG/ML AMPULE IV PRN ×5 (00:35→14:15)
[2020-03-05] MEDS ORDERED: MAG HYDROX/AL HYDROX/SIMETH SUSP 30 ML UDCUP PO PRN (03:50)
[2020-03-05] MEDS ORDERED: METOPROLOL TARTRATE PF/INJ 5 MG/5 ML SDV IV ONE (05:30)
[2020-03-05] MEDS: AZTREONAM 1 GM in DEXTROSE 5%-WATER 50 ML IV SCH ×3 (05:32→21:17)
[2020-03-05] MEDS: HEPARIN SOD (PORCINE) 5,000 UNIT/ML 1 ML VIAL SUBCUT SCH ×3 (05:33→21:17)
[2020-03-05] MEDS: DILTIAZEM HCL 30 MG TABLET NG SCH ×3 (05:55→21:19)
[2020-03-05] MEDS ORDERED: CARVEDILOL 12.5 MG TABLET PO ONE (06:00)
[2020-03-05 06:11] LABS: ABSOLUTE EOSINOPHILS # (AUTO) 0.1 10^3/uL (0.0-0.6); ABSOLUTE LYMPHOCYTES (AUTO) 1.2 10^3/uL (0.5-4.7); ABSOLUTE MONOCYTES (AUTO) 1.4 10^3/uL (0.1-1.4); ABSOLUTE NEUT (AUTO) 16.1 10^3/uL (1.7-8.2); BASOPHILS % (AUTO) 0.3 % (0-2); EOSINOPHILS % (AUTO) 0.5 % (0-6); HEMATOCRIT 30.3 % (37.9-51.0); LYMPHOCYTES % (AUTO) 6.4 % (13-45); MEAN CORPUSCULAR HEMOGLOBIN 31.6 pg (27.0-33.4); MEAN CORPUSCULAR HGB CONC 33.1 g/dL (32.0-36.0); MEAN CORPUSCULAR VOLUME 96 fl (80-97); MONOCYTES % (AUTO) 7.2 % (3-13); PLATELET COUNT 461 10^3/uL (150-450); RED BLOOD COUNT 3.17 10^6/uL (4.35-5.55); SEGMENTED NEUTROPHILS % (AUTO) 85.6 % (42-78); TOTAL CELLS COUNTED % (AUTO) 100 %; WHITE BLOOD COUNT 18.8 10^3/uL (4.0-10.5)
[2020-03-05 06:27] LABS: VANCOMYCIN,TROUGH 13.7 ug/mL (5.0-20.0)
[2020-03-05 06:30] LABS: ALBUMIN 2.7 g/dL (3.5-5.0); ALKALINE PHOSPHATASE 161 U/L (38-126); ANION GAP 11 (5-19); ASPARTATE AMINO TRANSFERASE 43 U/L (17-59); BILIRUBIN,DIRECT 0.1 mg/dL (0.0-0.4); BILIRUBIN,TOTAL 0.6 mg/dL (0.2-1.3); BLOOD UREA NITROGEN 40 mg/dL (7-20); CALCIUM 9.1 mg/dL (8.4-10.2); CARBON DIOXIDE 30 mmol/L (22-30); CHLORIDE 95 mmol/L (98-107); GLUCOSE 104 mg/dL (75-110); POTASSIUM 3.5 mmol/L (3.6-5.0); TOTAL PROTEIN 5.5 g/dL (6.3-8.2)
[2020-03-05] MEDS: IPRATROPIUM BROMIDE 0.02% NEB 0.5 MG/2.5 ML AMPUL NEB SCH ×3 (07:57→21:00)
--- NOTE | 2020-03-05 08:45 | PDOC PROGRESS REPORT ---
Subjective Progress Note for:: 03/05/20 Subjective:: Patient states he is still confused due to pain meds. Passing gas, NG was removed. Wants Ross out. Was able to sit up on bedside commode yesterday. Family was allowed to visit yesterday. ROS: mild abdominal pain. No dyspnea. No fevers. Reason For Visit: RUPTURED APPENDIX,SEPSIS Physical Exam Vital Signs: Temp Pulse Resp BP Pulse Ox 97.3 F 95 18 96/50 L 96 03/05/20 07:32 03/05/20 07:59 03/05/20 07:59 03/05/20 07:32 03/05/20 07:59 Intake & Output 03/04/20 03/05/20 03/06/20 06:59 06:59 06:59 Intake Total 2682 1880 Output Total 1500 1325 Balance 1182 555 Weight 117.3 kg 117.5 kg General appearance: PRESENT: obese Head exam: PRESENT: normocephalic Eye exam: PRESENT: EOMI Respiratory exam: PRESENT: unlabored GI/Abdominal exam: PRESENT: distended, firm Extremities exam: ABSENT: pedal edema Neurological exam: PRESENT: alert, awake, oriented to person, oriented to place. ABSENT: oriented to time Psychiatric exam: PRESENT: appropriate affect Skin exam: PRESENT: normal color Results Laboratory Results: 03/05/20 05:51 03/05/20 05:51 03/04/20 03/05/20 03/05/20 12:00 05:51 05:51 WBC 18.8 H RBC 3.17 L Hgb 10.0 L Hct 30.3 L MCV 96 MCH 31.6 MCHC 33.1 RDW 15.0 H Plt Count 461 H Seg Neutrophils % 85.6 H Sodium 135.6 L Potassium 3.5 L Chloride 95 L Carbon Dioxide 30 Anion Gap 11 BUN 40 H Creatinine 1.71 H Est GFR ( Amer) 49 L Glucose 104 Calcium 9.1 Total Bilirubin 0.6 AST 43 Alkaline Phosphatase 161 H Total Protein 5.5 L Albumin 2.7 L Urine Color CELESTINO Urine Appearance CLOUDY Urine pH 5.0 Ur Specific [place] 1.021 Urine Protein 30 H Urine Glucose (UA) NEGATIVE Urine Ketones NEGATIVE Urine Blood LARGE H Urine RBC (Auto) 79 02/21/20 02/21/20 02/21/20 16:15 19:29 19:29 CK-MB (CK-2) 1.34 Troponin I 1.170 0.926 NT-Pro-B Natriuret Pep 289 H 02/22/20 02/22/20 00:21 06:01 CK-MB (CK-2) 1.13 0.79 Troponin I 0.587 0.409 NT-Pro-B Natriuret Pep Impressions: Chest X-Ray 02/22/20 00:00 IMPRESSION: Minimal bibasilar atelectasis with otherwise no acute disease. Abdomen/Pelvis CT 02/29/20 00:00 IMPRESSION: 1. History of recent colonic resection. On the images from the study, it appears that some portion of the right colon was removed. The remaining colon is not dilated. There is mild thickening in the rectosigmoid colon. There is mild thickening outside the distal colon in the left pelvis. 2. Suspected distal small bowel obstruction. Transition zone possibly identify in right lower quadrant. Very minimal thickening of the small bowel. However this is more likely due to adhesions. 3. Suspected metastatic bone disease in lower thoracic spine and the lumbar spine and sacrum. 4. Right lower lobe nodule more likely metastatic. Mild atelectasis left lower lobe. Head CT 02/29/20 00:00 IMPRESSION: Peripherally enhancing mass with surrounding edema at the level of the left occipital lobe compatible with metastatic disease. KUB X-Ray 03/01/20 00:00 IMPRESSION: Persistent appearance of multiple gas distended loops of bowel. Enteric tube terminating subdiaphragmatically within the left upper quadrant. A small focus of gas seen subjacent to the left hemidiaphragm likely represents residual post laparoscopic insufflation gas. Small Bowel X-Ray 03/01/20 00:00 IMPRESSION: Nonfilling of mid and distal loops of small bowel at five hours. The patient vomited large volume of contrast from the stomach. Delayed imaging to be acquired at two hours Renal Ultrasound 03/04/20 00:00 IMPRESSION: 1. Poor evaluation of the right kidney. 2. Left kidney looks unremarkable. 3. Bladder not seen, decompressed by a Ross catheter. Assessment & Plan - Diagnosis (1) Appendicitis Qualifiers: Appendicitis type: acute appendicitis Acute appendicitis type: with localized peritonitis Appendicitis gangrene presence: unspecified whether gangrene present Appendicitis perforation presence: with perforation Appendicitis abscess presence: with abscess Qualified Code(s): K35.33 - Acute appendicitis with perforation and localized peritonitis, with abscess Is this a current diagnosis for this admission?: Yes (2) Lung nodules Is this a current diagnosis for this admission?: Yes (3) Lung cancer Qualifiers: Laterality: right Lung location: lower lobe of lung Qualified Code(s): C34.31 - Malignant neoplasm of lower lobe, right bronchus or lung Is this a current diagnosis for this admission?: Yes Plan: Will try to start XRT to the brain this week while awaiting abdominal wound healing prior to starting chemo as outpatient. He would benefit from port place ment, once more stable. Await return of bowel function. - Time Time Spent with patient: 15-24 minutes - Plan Summary Plan Summary: I have a long discussion with patient's son yesterday. All questions were answered. He was surprised that this had not been found previously. I explained that patient told me that he had found the spot on his lung many months prior, but delayed work-up then COVID delayed biopsy. Family understands that this is not curable, but is treatable and prognosis will depend on how he responds to treatment, once started, but he must heal and get stronger before treatment can begin.
--- NOTE | 2020-03-05 10:55 | PDOC PROGRESS REPORT ---
Subjective Progress Note for:: 03/05/20 Reason For Visit: RUPTURED APPENDIX,SEPSIS Physical Exam Vital Signs: Temp Pulse Resp BP Pulse Ox 97.3 F 95 18 96/50 L 96 03/05/20 07:32 03/05/20 07:59 03/05/20 07:59 03/05/20 07:32 03/05/20 07:59 Intake & Output 03/04/20 03/05/20 03/06/20 06:59 06:59 06:59 Intake Total 2682 1880 100 Output Total 1500 1325 Balance 1182 555 100 Weight 117.3 kg 117.5 kg Results Laboratory Results: 03/05/20 05:51 03/05/20 05:51 03/04/20 03/05/20 03/05/20 12:00 05:51 05:51 WBC 18.8 H RBC 3.17 L Hgb 10.0 L Hct 30.3 L MCV 96 MCH 31.6 MCHC 33.1 RDW 15.0 H Plt Count 461 H Seg Neutrophils % 85.6 H Sodium 135.6 L Potassium 3.5 L Chloride 95 L Carbon Dioxide 30 Anion Gap 11 BUN 40 H Creatinine 1.71 H Est GFR ( Amer) 49 L Glucose 104 Calcium 9.1 Total Bilirubin 0.6 AST 43 Alkaline Phosphatase 161 H Total Protein 5.5 L Albumin 2.7 L Urine Color [place]LE[place]INO Urine Appearance CLOUDY Urine pH 5.0 Ur Specific [place] 1.021 Urine Protein 30 H Urine Glucose (UA) NEGATIVE Urine Ketones NEGATIVE Urine Blood LARGE H Urine RBC (Auto) 79 02/21/20 02/21/20 02/21/20 16:15 19:29 19:29 CK-MB (CK-2) 1.34 Troponin I 1.170 0.926 NT-Pro-B Natriuret Pep 289 H 02/22/20 02/22/20 00:21 06:01 CK-MB (CK-2) 1.13 0.79 Troponin I 0.587 0.409 NT-Pro-B Natriuret Pep Impressions: Chest X-Ray 02/22/20 00:00 IMPRESSION: Minimal bibasilar atelectasis with otherwise no acute disease. Abdomen/Pelvis CT 02/29/20 00:00 IMPRESSION: 1. History of recent colonic resection. On the images from the study, it appears that some portion of the right colon was removed. The remaining colon is not dilated. There is mild thickening in the rectosigmoid colon. There is mild thickening outside the distal colon in the left pelvis. 2. Suspected distal small bowel obstruction. Transition zone possibly identify in right lower quadrant. Very minimal thickening of the small bowel. However this is more likely due to adhesions. 3. Suspected metastatic bone disease in lower thoracic spine and the lumbar spine and sacrum. 4. Right lower lobe nodule more likely metastatic. Mild atelectasis left lower lobe. Head CT 02/29/20 00:00 IMPRESSION: Peripherally enhancing mass with surrounding edema at the level of the left occipital lobe compatible with metastatic disease. KUB X-Ray 03/01/20 00:00 IMPRESSION: Persistent appearance of multiple gas distended loops of bowel. Enteric tube terminating subdiaphragmatically within the left upper quadrant. A small focus of gas seen subjacent to the left hemidiaphragm likely represents residual post laparoscopic insufflation gas. Small Bowel X-Ray 03/01/20 00:00 IMPRESSION: Nonfilling of mid and distal loops of small bowel at five hours. The patient vomited large volume of contrast from the stomach. Delayed imaging to be acquired at two hours Renal Ultrasound 03/04/20 00:00 IMPRESSION: 1. Poor evaluation of the right kidney. 2. Left kidney looks unremarkable. 3. Bladder not seen, decompressed by a Ross catheter. Assessment & Plan - Diagnosis (1) Metastatic lung cancer (metastasis from lung to other site) Qualifiers: Laterality: unspecified laterality Qualified Code(s): C34.90 - Malignant neoplasm of unspecified part of unspecified bronchus or lung Is this a current diagnosis for this admission?: Yes - Plan Summary Plan Summary: This is a 69-year-old male status post re-exploratory laparotomy with right hemicolectomy. The patient reports midline abdominal pain. He denies any vomiting, but notes mild nausea. He reports that he is beginning to pass small amounts of flatus. His Ross catheter still in place. Plan to remove Ross today. Patient is sitting up, out of bed. I have encouraged ambulation today. Aggressive pulmonary toilet.
[2020-03-05] MEDS: FLECAINIDE ACETATE 100 MG TABLET NG SCH (10:59)
[2020-03-05] MEDS: ASPIRIN 81 MG TABLET, CHEWABLE NG SCH (10:59)
[2020-03-05] MEDS: POLYETHYLENE GLYCOL 3350 POWDER 17 GM/1 PACKET NG SCH (11:00)
[2020-03-05] MEDS: FLUTICASONE/UMECLIDIN/VILANTER 100-62.5-25 MCG/DOSE IH SCH (11:00)
[2020-03-05] MEDS: NORMAL SALINE 1000 ML 1,000 ML IV PRN ×2 (11:05→11:52)
[2020-03-05] MEDS: CARVEDILOL 12.5 MG TABLET NG SCH ×2 (11:06→21:16)
[2020-03-05] MEDS: FUROSEMIDE 20 MG TABLET PO SCH (11:06)
[2020-03-05] MEDS: LISINOPRIL 10 MG TABLET NG SCH (11:06)
[2020-03-05 11:51] LABS: PATH REVIEW PATHOLOGIST REVIEWED
[2020-03-05] MEDS: FAMOTIDINE INJ/PF 20 MG/2 ML SDV IV SCH ×2 (11:51→21:16)
[2020-03-05] MEDS ORDERED: HYDROMORPHONE HCL INJ/PF 2 MG/ML AMPULE IV PRN (14:40)
--- NOTE | 2020-03-05 16:51 | PDOC PROGRESS REPORT ---
Subjective Progress Note for:: 03/05/20 Subjective:: Mr. Adithya Diaz is 69 years old with past medical history of A. fib, CHF, hypertension, hyperlipidemia, COPD, sleep apnea, GERD, who was admitted on 02/22/2020 complaining of abdominal discomfort, nausea, vomiting, anorexia with fever and was found to have a perforated appendix, he is status post partial colectomy by surgery patient initially admitted to ICU and transferred to floor on 02/25/2020. 02/26/2020. No acute events overnight. Patient comfortably sitting up in distress, still complaining of mild abdominal pain otherwise tolerating clear liquids, passing flatus, has not had a bowel movement, denies any shortness of breath, chest pain, nausea, vomiting, diarrhea, constipation or any urinary symptoms. 02/27/2020. Patient complaining of excessive belching and nausea, is passing minimal flatus, has not had a bowel movement, complaining of abdominal d istention and feeling uncomfortable, denies any abdominal pain, shortness of breath, chills, fever, chest pain. 02/28/2020. No acute events overnight. Patient still complaining of some belching otherwise his nausea and abdominal pain are improving, patient is passing some flatus and has tolerated some clear liquids, denies any fever, chills, chest pain, diarrhea, constipation or any urinary symptoms. 02/29/2020. Patient complaining of not getting enough sleep last night, this morning patient having worsening abdominal distention and noted to have a lot of residual after NG tube was placed, patient is passing minimal flatus, has not had a bowel movement, denies any shortness of breath, chest pain, fever or chills. 03/01/2020. Patient is still having excessive residual from his NG tube however stating that he is passing more flatus and has had one small bowel movement, abdominal distention is improving, patient is ambulating and tolerating his p.o. intake, denies any chest pain, shortness of breath, fever, chills. 03/02/2020. No acute events overnight but unfortunately patient's SBO did not improve and he underwent status post revision of ileocolonic anastomosis and right hemicolectomy. Saw patient this morning before going to the OR, still have high residual and has not passed a bowel movement, passing minimal flatus. Complaining of abdominal distention and worsening shortness of breath. Denies any chest pain. shortness of breath. 03/03/2020. Saw patient this morning, complaining of neck pain and persistent abdominal distention, has not passed a bowel movement, is passing minimal flatus, feels groggy today could be due to Dilaudid, following commands and cooperative with physical examination. Denies any shortness of breath, fever, chills, chest pain. 03/04/2020. Patient reporting having a rough night last night, stating he was not able to sleep, was having neck and abdominal pain and was feeling very uncomfortable, this morning he is feeling much better, resting in his recliner, NG tube is out unfortunately patient has not passed any flatus since his rev ision surgery, his pressure been on the soft side and his urine output has not been adequate. Patient denies any nausea or vomiting, still complaining of persistent abdominal distention, denies any shortness of breath, chest pain or fever. 03/05/2020. Patient was seen on morning rounds. He is found sitting up to the bedside commode, comfortably, on room air. He reports that he continues to pass gas but has not yet passed stool. He is pleased that his Ross catheter has been removed. Otherwise, he has continued abdominal and back discomfort. He is frustrated by his pain medication regimen; feeling that the medication wears off too quickly, however, shortly after receiving the medication he was overly sedated. He denies fever, chills, chest pain, palpitations, dyspnea, orthopnea, vomiting. No other questions or concerns at this time. Reason For Visit: RUPTURED APPENDIX,SEPSIS Physical Exam Vital Signs: Temp Pulse Resp BP Pulse Ox 97.9 F 96 18 112/61 97 03/05/20 11:00 03/05/20 13:42 03/05/20 13:42 03/05/20 11:00 03/05/20 13:42 Intake & Output 03/04/20 03/05/20 03/06/20 06:59 06:59 06:59 Intake Total 2682 1880 1278 Output Total 1500 1325 275 Balance 5043 009 7173 Weight 117.3 kg 117.5 kg General appearance: PRESENT: no acute distress, cooperative, obese, well- developed, well-nourished Head exam: PRESENT: atraumatic, normocephalic Eye exam: PRESENT: conjunctiva pink, EOMI, PERRLA. ABSENT: scleral icterus Mouth exam: PRESENT: moist, tongue midline Respiratory exam: PRESENT: clear to auscultation anshul, symmetrical, unlabored. ABSENT: rales, rhonchi, wheezes Cardiovascular exam: PRESENT: RRR, +S1, +S2. ABSENT: diastolic murmur, rubs, systolic murmur Vascular exam: PRESENT: normal capillary refill GI/Abdominal exam: PRESENT: distended, hypoactive bowel sounds, soft, tenderness. ABSENT: guarding, mass, organolmegaly, rebound Rectal exam: PRESENT: deferred Extremities exam: PRESENT: full ROM. ABSENT: calf tenderness, clubbing, pedal edema Neurological exam: PRESENT: alert, awake, oriented to person, oriented to place, oriented to time, oriented to situation, CN II-XII grossly intact. ABSENT: motor sensory deficit Psychiatric exam: PRESENT: appropriate affect, normal mood. ABSENT: homicidal ideation, suicidal ideation Skin exam: PRESENT: dry, intact, warm. ABSENT: cyanosis, rash Results Laboratory Results: 03/05/20 05:51 03/05/20 05:51 03/05/20 03/05/20 05:51 05:51 WBC 18.8 H RBC 3.17 L Hgb 10.0 L Hct 30.3 L MCV 96 MCH 31.6 MCHC 33.1 RDW 15.0 H Plt Count 461 H Seg Neutrophils % 85.6 H Sodium 135.6 L Potassium 3.5 L Chloride 95 L Carbon Dioxide 30 Anion Gap 11 BUN 40 H Creatinine 1.71 H Est GFR ( Amer) 49 L Glucose 104 Calcium 9.1 Total Bilirubin 0.6 AST 43 Alkaline Phosphatase 161 H Total Protein 5.5 L Albumin 2.7 L 02/21/20 02/21/20 02/21/20 16:15 19:29 19:29 CK-MB (CK-2) 1.34 Troponin I 1.170 0.926 NT-Pro-B Natriuret Pep 289 H 02/22/20 02/22/20 00:21 06:01 CK-MB (CK-2) 1.13 0.79 Troponin I 0.587 0.409 NT-Pro-B Natriuret Pep Impressions: Chest X-Ray 02/22/20 00:00 IMPRESSION: Minimal bibasilar atelectasis with otherwise no acute disease. Abdomen/Pelvis CT 02/29/20 00:00 IMPRESSION: 1. History of recent colonic resection. On the images from the study, it appears that some portion of the right colon was removed. The remaining colon is not dilated. There is mild thickening in the rectosigmoid colon. There is mild thickening outside the distal colon in the left pelvis. 2. Suspected distal small bowel obstruction. Transition zone possibly identify in right lower quadrant. Very minimal thickening of the small bowel. However this is more likely due to adhesions. 3. Suspected metastatic bone disease in lower thoracic spine and the lumbar spine and sacrum. 4. Right lower lobe nodule more likely metastatic. Mild atelectasis left lower lobe. Head CT 02/29/20 00:00 IMPRESSION: Peripherally enhancing mass with surrounding edema at the level of the left occipital lobe compatible with metastatic disease. KUB X-Ray 03/01/20 00:00 IMPRESSION: Persistent appearance of multiple gas distended loops of bowel. Enteric tube terminating subdiaphragmatically within the left upper quadrant. A small focus of gas seen subjacent to the left hemidiaphragm likely represents residual post laparoscopic insufflation gas. Small Bowel X-Ray 03/01/20 00:00 IMPRESSION: Nonfilling of mid and distal loops of small bowel at five hours. The patient vomited large volume of contrast from the stomach. Delayed imaging to be acquired at two hours Renal Ultrasound 03/04/20 00:00 IMPRESSION: 1. Poor evaluation of the right kidney. 2. Left kidney looks unremarkable. 3. Bladder not seen, decompressed by a Ross catheter. Assessment and Plan - Diagnosis (1) VICENTE (acute kidney injury) Is this a current diagnosis for this admission?: Yes Plan: Improved. Increased urine output Creatinine 2.93-> 1.71 This was likely vancomycin induced placated by postsurgical hypotension. Vancomycin trough 26.5 down from 39.6. FeNa 0.15%. Patient was also on Lasix, hence FeNA may not be reliable. Will get FEUr Pending renal ultrasound. Hold vancomycin. Nephrology consulted. Appreciate their evaluation/recommendations. Strict and outs. Monitor volume status and electrolytes. Replace electrolytes as needed. BMP tomorrow. (2) Hypotension Qualifiers: Hypotension type: hypotension due to hypovolemia Qualified Code(s): I95.89 - Other hypotension; E86.1 - Hypovolemia Is this a current diagnosis for this admission?: Yes Plan: Patient has low p.o. intake and excessive gastric drainage with worsening leukocytosis however afebrile. Is already on broad-spectrum IV antibiotics. Monitor vitals volume status. Hold antihypertensives if MAP <65 or symptomatic. Continue fluid resuscitation guided by volume status. Defer medication regimen to cardiology; Dr. Sen is consulted. Appreciate his assistance. (3) Ileus, postoperative Is this a current diagnosis for this admission?: Yes Plan: POD #3 status post laparotomy and revision of ileocolonic anastomosis and right hemicolectomy. Unfortunately patient is still not passing stool and has persistent abdominal distention. He is passing flatus. Surgery following. NG tube is out. (4) Status post colon resection Is this a current diagnosis for this admission?: Yes Plan: POD 3 status post 2nd laparotomy and revision of ileocolonic anastomosis and right hemicolectomy. POD 12 status post ileocolectomy, with intermittent ileus. Secondary to perforated appendiceal metastasis from lung cancer. Advance diet as tolerated. Monitor his vitals. Encourage ambulation. Surgery on board. Recommendations noted. (5) Lung cancer Qualifiers: Laterality: unspecified laterality Lung location: unspecified part of lung Qualified Code(s): C34.90 - Malignant neoplasm of unspecified part of unspecified bronchus or lung Is this a current diagnosis for this admission?: Yes Plan: Metastatic stage IV lung cancer. Perforated appendix turned out to be lung metastasis to abdomen. CT head is also positive for metastatic lesion. Oncology consult. Chemotherapy is planned once patient is discharged from the hospital. Possible radiation treatments prior to d/c (6) Peritonitis with abscess of intestine Is this a current diagnosis for this admission?: Yes Plan: Secondary to perforated appendiceal metastasis. Abdominal fluid growing Enterobacter, Streptococcus, Peptostreptococcus and Bacteroides. Afebrile. Leukocytosis is improved today; WBC 20-> 14-> 30-> 24-> 18 Day #6 IV vancomycin; placed on hold r/t ATN/Vanc toxicity. Start oral Zyvoxx. Day #11 IV aztreonam. Day #11 IV metronidazole. Day #10/14 IV antibiotics. Infectious disease specialist consulted. Recommendation is IV antibiotics for 14 days post source control. (7) Obesity hypoventilation syndrome Is this a current diagnosis for this admission?: Yes Plan: Nocturnal BiPAP. Supplemental oxygen. (8) COPD exacerbation Is this a current diagnosis for this admission?: Yes Plan: Does not seem to be acutely exacerbated. History of COPD oxygen dependent on 2 L nasal cannula. Resume home meds. PRN duo nebs. PRN BiPAP. (9) Atrial fibrillation Qualifiers: Atrial fibrillation type: paroxysmal Qualified Code(s): I48.0 - Paroxysmal atrial fibrillation Is this a current diagnosis for this admission?: Yes Plan: Rate controlled. Status post ablation. On beta-blockers and Cardizem. Not anticoagulated, due to recent abdominal surgery. Home medication is Eliquis 5 mg p.o. twice daily. Continue Cardizem. Continue beta-blockers. Resume Eliquis once appropriate. Cardiology consulted recommendations noted. (10) Appendicitis Qualifiers: Appendicitis type: acute appendicitis Acute appendicitis type: with loca lized peritonitis Appendicitis gangrene presence: unspecified whether gangrene present Appendicitis perforation presence: with perforation Appendicitis abscess presence: with abscess Qualified Code(s): K35.33 - Acute appendicitis with perforation and localized peritonitis, with abscess Is this a current diagnosis for this admission?: Yes Plan: As above. Initially thought to be deep and started to return at to be metastatic lung ca ncer as per pathology report. Complicated perforated appendix status post exploratory laparotomy and hemicolectomy. (11) HAIDER (obstructive sleep apnea) Is this a current diagnosis for this admission?: Yes Plan: Nocturnal BiPAP. Supplemental oxygen. (12) Metastasis Qualifiers: Area of secondary neoplastic involvement: bone Qualified Code(s): C79.51 - Secondary malignant neoplasm of bone Is this a current diagnosis for this admission?: Yes Plan: As above. (13) Lung nodules Is this a current diagnosis for this admission?: Yes Plan: Oncology on board. Outpatient follow-up is recommended. (14) Elevated troponin Is this a current diagnosis for this admission?: Yes Plan: Trending down. Chest pain free. Although EKG did not demonstrate acute ischemic changes, his troponin was elevated. Therefore cardiology was consulted. Discussed this case with Dr. Vargas (cardiology) who feels that the elevated troponin is related with his sepsis and not due to an acute cardiac event. Cardiology is consulted; appreciate Dr. Sen's assistance. - Time Time Spent with patient: 35 or more minutes Medications reviewed and adjusted accordingly: Yes Anticipated discharge: Home with Homehealth
--- NOTE | 2020-03-05 17:18 | Progress Note ---
Provider Note Provider Note: CARDIOLOGY PROGRESS NOTE by Dr. Garrison has been on 03/05/2020. Subjective: The patient is developed acute renal failure. But he is asymptomatic. He is passing flatus. He has no abdominal pain he has no nausea vomiting. The patient had a short run of atrial fibrillation which converted to sinus rhythm with 1 dose of Cardizem 10 mg given intravenously by me. The patient denies any shortness of breath. There is no PND orthopnea or leg edema. The patient has no chest pain or discomfort. The patient is being followed by nephrology. PHYSICAL EXAMINATION: The patient is morbidly obese. In no acute distress. Selected Entries 03/05/20 03/05/20 03/05/20 13:42 14:00 18:13 Temperature 98.8 F Temperature Axillary Source Pulse Rate 124 H 80 Respiratory 18 18 Rate Blood Pressure 107/47 L Blood Pressure 67 Mean BP Location Left Arm BP Position Sitting O2 Sat by Pulse 92 Oximetry Oxygen Flow 3.00 Rate Oxygen Delivery Nasal Cannula Method HEAD: Is atraumatic normocephalic. EYES: Pupils are equal round regular reactive light accommodation. ENT is negative NECK: Is supple. There is no JVD. Carotids are equal there is no bruits. There is no lymphadenopathy. There is no goiter. There is no accessory muscle respiration use. LUNGS: There is diminished air entry prolonged expiration. There is no rhonchi rales or wheezing. On percussion there is hyperresonance. HEART: S1-S2 is heard. There is no S3 gallop there is no S4 gallop. There is systolic murmur left sternal border and the apex. There is no rub. ABDOMEN: Is obese. Mildly distended. Bowel sounds are present but very weak.. The patient has an NG tube in situ which is draining fluid. Surgical dressing is dry and clean.. EXTREMITIES femorals are diminished there is no femoral bruits. Leg pulses are diminished. There is no pedal edema. There is no DVT or cellulitis. There is no calf tenderness. There is no cyanosis or clubbing. COKEMAN: The patient is conscious awake oriented x3 with no focal deficit. PSYCHIATRIC: Patient judgment insight are intact his affect is normal. Labs- All tests 24 hr 03/03/20 03/05/20 03/05/20 05:38 05:51 05:51 WBC 18.8 H RBC 3.17 L Hgb 10.0 L Hct 30.3 L MCV 96 MCH 31.6 MCHC 33.1 RDW 15.0 H Plt Count 461 H Lymph % (Auto) 6.4 L [place] % (Auto) 7.2 Eos % (Auto) 0.5 Baso % (Auto) 0.3 Absolute Neuts (auto) 16.1 H Absolute Lymphs (auto) 1.2 Absolute Monos (auto) 1.4 Absolute Eos (auto) 0.1 Absolute Basos (auto) 0.0 Seg Neutrophils % 85.6 H Sodium Potassium Chloride Carbon Dioxide Anion Gap BUN Creatinine Est GFR ( Amer) Est GFR (MDRD) Non-Af Glucose Calcium Total Bilirubin Direct Bilirubin Neonat Total Bilirubin Neonat Direct Bilirubin Neonat Indirect Bili AST ALT Alkaline Phosphatase Total Protein Albumin Time Trough Drawn 0551 Vancomycin Trough 13.7 Slides for Path Review PATHOLOGIST REVIEWED 03/05/20 05:51 WBC RBC Hgb Hct MCV MCH MCHC RDW Plt Count Lymph % (Auto) [place] % (Auto) Eos % (Auto) Baso % (Auto) Absolute Neuts (auto) Absolute Lymphs (auto) Absolute Monos (auto) Absolute Eos (auto) Absolute Basos (auto) Seg Neutrophils % Sodium 135.6 L Potassium 3.5 L Chloride 95 L Carbon Dioxide 30 Anion Gap 11 BUN 40 H Creatinine 1.71 H Est GFR ( Amer) 49 L Est GFR (MDRD) Non-Af 40 L Glucose 104 Calcium 9.1 Total Bilirubin 0.6 Direct Bilirubin 0.1 Neonat Total Bilirubin Not Reportable Neonat Direct Bilirubin Not Reportable Neonat Indirect Bili Not Reportable AST 43 ALT 28 Alkaline Phosphatase 161 H Total Protein 5.5 L Albumin 2.7 L Time Trough Drawn Vancomycin Trough Slides for Path Review Abdomen/Pelvis CT 02/21/20 14:37 IMPRESSION: 1. Increased size of the right lower lobe pulmonary nodule measuring 2.1 cm, previously 1.6 cm. Malignancy is highy suspected. PET-CT or tissue sampling should be considered 2. Dilated appendix with significant pericecal inflammatory change compatible with acute appendicitis. No focal drainable collection. Recommend surgical consultation. 3. Innumerable lucent osseous lesions suggestive neoplasm, likely metastatic disease versus multiple myeloma. Findings discussed with Dr. Gamble At 1519 hours on 02/21/2020. Chest X-Ray 02/22/20 00:00 IMPRESSION: Minimal bibasilar atelectasis with otherwise no acute disease. KUB X-Ray 02/28/20 00:00 IMPRESSION: Ileus versus small-bowel obstruction. Abdomen/Pelvis CT 02/29/20 00:00 IMPRESSION: 1. History of recent colonic resection. On the images from the study, it appears that some portion of the right colon was removed. The remaining colon is not dilated. There is mild thickening in the rectosigmoid colon. There is mild thickening outside the distal colon in the left pelvis. 2. Suspected distal small bowel obstruction. Transition zone possibly identify in right lower quadrant. Very minimal thickening of the small bowel. However this is more likely due to adhesions. 3. Suspected metastatic bone disease in lower thoracic spine and the lumbar spine and sacrum. 4. Right lower lobe nodule more likely metastatic. Mild atelectasis left lower lobe. Head CT 02/29/20 00:00 IMPRESSION: Peripherally enhancing mass with surrounding edema at the level of the left occipital lobe compatible with metastatic disease. KUB X-Ray 02/29/20 08:07 IMPRESSION: 1. Interval placement of nasogastric tube since the prior study dated 02/28/2020 as above. KUB X-Ray 03/01/20 00:00 IMPRESSION: Persistent appearance of multiple gas distended loops of bowel. Enteric tube terminating subdiaphragmatically within the left upper quadrant. A small focus of gas seen subjacent to the left hemidiaphragm likely represents residual post laparoscopic insufflation gas. Small Bowel X-Ray 03/01/20 00:00 IMPRESSION: Nonfilling of mid and distal loops of small bowel at five hours. The patient vomited large volume of contrast from the stomach. Delayed imaging to be acquired at two hours Renal Ultrasound 03/04/20 00:00 IMPRESSION: 1. Poor evaluation of the right kidney. 2. Left kidney looks unremarkable. 3. Bladder not seen, decompressed by a Ross catheter. IMPRESSION/RECOMMENDATION: 1. 1 episode of proximal atrial fibrillation which was terminated and patient went into sinus rhythm after he received 10 mg of Cardizem Integrilin intravenously x1. Continue flecainide. 2. Acute renal failure secondary to fever infection, tachycardia, vancomycin toxicity and multiple contrast load. Recommend continue hydration. 3. Acute appendicitis. S/p surgery. The patient has a phlegmon and an ruptured appendiceal abscess. Pathology report shows metastatic lung cancer in the appendicectomy specimen. Primary 4. No evidence of acute coronary syndrome. The patient has no anginal symptoms. The patient on 10/25/2019 has had a negative Cardiolite stress test. Also he has no known history of coronary artery disease. Elevated troponin I secondary to supply demand mismatch. This is resolved. 5. History of paroxysmal l atrial fibrillation: The patient had a brief run of recurrent atrial fibrillation with rapid ventricle response. This reverted back to sinus rhythm when the patient was given flecainide at an earlier time. No further recurrence of paroxysmal atrial fibrillation. 6. Hypertension: BP well controlled 7. Hyperlipidemia. 8. COPD: Without exacerbation. 9. Primary lung cancer with bony mets. This will be worked up by oncology. 10. Prior history of cardiomyopathy. The patient's echo in September 2019 showed LV ejection fraction 65 to 70%. 1. Postop ileus resolved. Patient passing flatus and is taking p.o. without nausea vomiting. Medications reviewed medical regimen and management plan discussed with attending provider. Medical decision making is a moderate complexity. 40 minutes spent as patient more than 50% time spent direct patient care. Will follow.
[2020-03-05] MEDS: OXYCODONE-ACETAMINOPHEN 5-325 MG TABLET PO PRN (17:43)
[2020-03-05] MEDS: DOCUSATE SODIUM 100 MG CAPSULE PO SCH (17:43)
[2020-03-05] MEDS ORDERED: DILTIAZEM HCL INJ 25 MG/5 ML VIAL IV ONE (17:49)
--- NOTE | 2020-03-05 21:14 | PDOC CONSULTATION ---
Consultation Consult Date: 03/05/20 Provider Consulted: CINDY ORNELAS Consult reason:: VICENTE History of Present Illness Admission Date/PCP: 02/21/20 16:04 ETELVINA IBRAHIM MD History of Present Illness: EDINSON BLOCK is a 69 year old male with the past medical history significant for chronic CHF, hypertension, atrial fibrillation post ablation, not requiring rhythm, rate control or anticoagulant, COPD, HAIDER on BiPAP, and known lung nodules without completed work-up due to COVID 19 delays who presented to the emergency department on 02/20 with a complaint of 4 days of progressively worsening abdominal discomfort, nausea, vomiting, anorexia, not feeling well and a low-grade fever. When in the ED it was found that he had a fever, tachycardia, WBCs 20.5 with left-sided shift, and CT imaging demonstrating dilated appendix with significant pericecal inflammatory changes compatible with acute appendicitis, increased size of the pulmonary nodules. He had also been found to have possible mets to the bone. His troponin was elevated to greater than one. Bp was also found to be low/low end of normal. He was deemed to be septic.. He was admitted, seen by surgery. It was determined that he needed an appendectomy and possible partial colectomy. Before that happened he had to be seen by car diology and determined whether he was stable. The NSTEMI was determined to be secondary to his low bp. He then had an appendectomy w/ partial right sided colectomy due to some ischemia. For the next several days he did not have a bowel movement. On the initial consult by oncology it was determined that a biopsy of the lungs would be done when he was more stable. On 02/24 he had some A-fib that was controlled with cardiazem. The biopsy of his colon came back on 02/26 and was determined to be mets from his lungs to his colon. He was seen by oncology for the second time. They recommend a head CT. Currently going to hold off on chemo. Possible radiation therapy. The whole time he had an NG tube for the bowels. On 02/27 he continued to not have bowel movements but did have nausea vomiting. KUB showed an illeus. Had a CT with contrast of his abdomen and head. The head CT did show a possible mets to the brain. Abdomen CT continued to show dilation of the bowels. He was also started on more antibiotics including Vancomycin On 03/01 he had a KUB with oral contrast to confirm it. On 03/02 he had exploratory surgery and more resection of his bowels. He also had hypotension that day. He was started on normal saline On 03/03 the creatinine increased to 2.0 and vanc trough was 39.6. On 03/04 it was 2.9. On 03/05 his creatinine was 1.7. He continues to have no bowel movements. Continues on normal saline. No longer has the smith or NG tube today. He continues to burp, have acid reflux with no bowel movements. Past Medical History Cardiac Medical History: Reports: Atrial Fibrillation, Hyperlipidemia Pulmonary Medical History: Reports: Chronic Obstructive Pulmonary Disease (COPD), Sleep Apnea - Patient uses a BiPAP at night. Denies: Tuberculosis EENT Medical History: Reports: None Neurological Medical History: Reports: None Endocrine Medical History: Reports: Obesity Denies: Diabetes Mellitus Type 2, Hypothyroidism Complications of Diabetes: Reports: None Renal/ Medical History: Reports: None Malignancy Medical History: Reports: Other - new Dx lung nodules w/ bone mets GI Medical History: Reports: Gastroesophageal Reflux Disease Skin Medical History: Reports: None Psychiatric Medical History: Reports: None Denies: Depression - Unable to assess, Pt intubated & sedated Traumatic Medical History: Reports: None Infectious Medical History: Reports: None Past Surgical History Past Surgical History: Reports: Cardiac Catheterization - ablasion February 2014, Cholecystectomy - Cholecystectomy complicated requiring liver resection. Social History Lives with: Family Smoking Status: Former Smoker Frequency of Alcohol Use: None Hx Recreational Drug Use: No Hx Prescription Drug Abuse: No - Advance Directive Resuscitation Status: Full Code Family History Parental Family History Reviewed: Yes Children Family History Reviewed: Yes Sibling(s) Family History Reviewed.: Yes Medication/Allergy Home Medications: Furosemide [Lasix 40 mg Tablet] 40 mg PO QAM #30 tablet 06/20/13 Lisinopril [Prinivil 10 mg Tablet] 10 mg PO DAILY #30 tablet 06/20/13 Spironolactone 25 mg PO DAILY #30 tablet 06/20/13 Carvedilol [Coreg 12.5 mg Tablet] 12.5 mg PO Q12 10/30/14 Montelukast Sodium [Singulair 10 mg Tablet] 10 mg PO QHS #30 tablet 11/03/14 Aspirin [Ecotrin 81 mg EC Tablet] 81 mg PO DAILY 02/21/20 Atorvastatin Calcium [Lipitor 20 mg Tablet] 20 mg PO QHS 02/21/20 Cyanocobalamin (Vitamin B-12) [Vitamin B-12 1000 Mcg Tablet] 2,000 mcg PO BID 02/21/20 Diclofenac Sodium 2 gm TOP QIDP PRN 02/21/20 Docusate Sodium [Colace 100 mg Capsule] 100 mg PO DAILY 02/21/20 Flecainide Acetate [Tambocor 100 mg Tablet] 100 mg PO DAILY 02/21/20 Hydrocodone/Acetaminophen [[place] 5-325 mg Tablet] 1 tab PO Q6HP PRN MDD filled 02/16 for 5 day supply 02/21/20 [place]-3 Fatty Acids/Fish Oil [[place] 3 Fish Oil Softgel] 1 each PO BID 02/21/20 Tizanidine HCl 4 mg PO Q8HP PRN 02/21/20 Allergies/Adverse Reactions: Penicillins Allergy (Severe, Verified 06/16/13 08:53) Anaphylaxis Tetanus Vaccines and Toxoid [Tetanus] Allergy (Severe, Verified 06/16/13 08:53) Anaphylaxis Review of Systems Constitutional: PRESENT: anorexia, chills, fever(s), weakness Eyes: ABSENT: visual disturbances Nose, Mouth, and Throat: ABSENT: headache(s) Cardiovascular: ABSENT: chest pain, dyspnea on exertion, edema, orthropnea, palpitations Respiratory: PRESENT: dyspnea. ABSENT: cough, sputum Gastrointestinal: PRESENT: abdominal pain, bloating, constipation, heartburn, nausea, vomiting. ABSENT: diarrhea Genitourinary: ABSENT: difficulty urinating, dysuria Neurological: ABSENT: confusion, dizziness, tingling, weakness Psychiatric: ABSENT: anxiety, depression Physical Exam Vital Signs: Temp Pulse Resp BP Pulse Ox 97.9 F 96 18 112/61 97 03/05/20 11:00 03/05/20 13:42 03/05/20 13:42 03/05/20 11:00 03/05/20 13:42 Intake & Output 03/04/20 03/05/20 03/06/20 06:59 06:59 06:59 Intake Total 2682 7730 1278 Output Total 1500 1325 275 Balance 6089 626 3194 Weight 117.3 kg 117.5 kg General appearance: PRESENT: mild distress, obese, well-developed, well- nourished, other - -patient was burping the whole time Mouth exam: PRESENT: moist, neck supple Neck exam: ABSENT: JVD, tracheal deviation Respiratory exam: PRESENT: crackles. ABSENT: clear to auscultation anshul, rales, wheezes Cardiovascular exam: PRESENT: RRR, +S1, +S2 GI/Abdominal exam: PRESENT: diminished bowel sounds, distended, firm, hypoactive bowel sounds, tenderness. ABSENT: soft Extremities exam: ABSENT: pedal edema, +1 edema, +2 edema Musculoskeletal exam: PRESENT: normal inspection. ABSENT: deformity, tenderness Neurological exam: PRESENT: alert, awake, oriented to person, oriented to place, oriented to time, oriented to situation Psychiatric exam: PRESENT: appropriate affect, normal mood Skin exam: PRESENT: dry, intact, warm Results Laboratory Results: 03/05/20 05:51 03/05/20 05:51 03/05/20 03/05/20 05:51 05:51 WBC 18.8 H RBC 3.17 L Hgb 10.0 L Hct 30.3 L MCV 96 MCH 31.6 MCHC 33.1 RDW 15.0 H Plt Count 461 H Seg Neutrophils % 85.6 H Sodium 135.6 L Potassium 3.5 L Chloride 95 L Carbon Dioxide 30 Anion Gap 11 BUN 40 H Creatinine 1.71 H Est GFR ( Amer) 49 L Glucose 104 Calcium 9.1 Total Bilirubin 0.6 AST 43 Alkaline Phosphatase 161 H Total Protein 5.5 L Albumin 2.7 L 02/21/20 02/21/20 02/21/20 16:15 19:29 19:29 CK-MB (CK-2) 1.34 Troponin I 1.170 0.926 NT-Pro-B Natriuret Pep 289 H 02/22/20 02/22/20 00:21 06:01 CK-MB (CK-2) 1.13 0.79 Troponin I 0.587 0.409 NT-Pro-B Natriuret Pep Impressions: Chest X-Ray 02/22/20 00:00 IMPRESSION: Minimal bibasilar atelectasis with otherwise no acute disease. Abdomen/Pelvis CT 02/29/20 00:00 IMPRESSION: 1. History of recent colonic resection. On the images from the study, it appears that some portion of the right colon was removed. The remaining colon is not dilated. There is mild thickening in the rectosigmoid colon. There is mild thickening outside the distal colon in the left pelvis. 2. Suspected distal small bowel obstruction. Transition zone possibly identify in right lower quadrant. Very minimal thickening of the small bowel. However this is more likely due to adhesions. 3. Suspected metastatic bone disease in lower thoracic spine and the lumbar spine and sacrum. 4. Right lower lobe nodule more likely metastatic. Mild atelectasis left lower lobe. Head CT 02/29/20 00:00 IMPRESSION: Peripherally enhancing mass with surrounding edema at the level of the left occipital lobe compatible with metastatic disease. KUB X-Ray 03/01/20 00:00 IMPRESSION: Persistent appearance of multiple gas distended loops of bowel. Enteric tube terminating subdiaphragmatically within the left upper quadrant. A small focus of gas seen subjacent to the left hemidiaphragm likely represents residual post laparoscopic insufflation gas. Small Bowel X-Ray 03/01/20 00:00 IMPRESSION: Nonfilling of mid and distal loops of small bowel at five hours. The patient vomited large volume of contrast from the stomach. Delayed imaging to be acquired at two hours Renal Ultrasound 03/04/20 00:00 IMPRESSION: 1. Poor evaluation of the right kidney. 2. Left kidney looks unremarkable. 3. Bladder not seen, decompressed by a Smith catheter. Assessment & Plan - Diagnosis (1) VICENTE (acute kidney injury) Is this a current diagnosis for this admission?: Yes Plan: nonoliguric, due to ATN from vancomycin toxicity, contrast from the CTs, hypote nsion. Continue on normal saline at 100mL an hour, decrease furosemide to 20mg qd. Continue off vanc if it is not needed. If creatinine does not improve more than the lisinopril will need to be removed. He also may need the smith catheter placed back in. (2) Hypotension Qualifiers: Hypotension type: hypotension due to hypovolemia Qualified Code(s): I95.89 - Other hypotension; E86.1 - Hypovolemia Is this a current diagnosis for this admission?: Yes Plan: looks to related to hypovolemia from blood loss and lack of fluid intake. Also possible affect of sepsis. Continue on normal saline at 100mL an hour. (3) Appendicitis Qualifiers: Appendicitis type: acute appendicitis Acute appendicitis type: with localized peritonitis Appendicitis gangrene presence: unspecified whether gangrene present Appendicitis perforation presence: with perforation Appendicitis abscess presence: with abscess Qualified Code(s): K35.33 - Acute appendicitis with perforation and localized peritonitis, with abscess Is this a current diagnosis for this admission?: Yes Plan: continue on current antibiotics and adjusting them per renal function. (4) Cecostomy status Plan: per surgery (5) Ileus, postoperative Is this a current diagnosis for this admission?: Yes Plan: per surgery (6) Metastatic lung cancer (metastasis from lung to other site) Qualifiers: Laterality: unspecified laterality Qualified Code(s): C34.90 - Malignant neoplasm of unspecified part of unspecified bronchus or lung Is this a current diagnosis for this admission?: Yes Plan: per oncology (7) Peritonitis with abscess of intestine Is this a current diagnosis for this admission?: Yes Plan: continue on current antibiotics and adjusting them per renal function. (8) HAIDER (obstructive sleep apnea) Is this a current diagnosis for this admission?: Yes Plan: on bipap at night (9) Atrial fibrillation Qualifiers: Atrial fibrillation type: paroxysmal Qualified Code(s): I48.0 - Paroxysmal atrial fibrillation Is this a current diagnosis for this admission?: Yes Plan: on cardiazem, per Dr. Sen (10) Elevated troponin Is this a current diagnosis for this admission?: Yes Plan: per Dr. Sen (11) COPD exacerbation Is this a current diagnosis for this admission?: Yes Plan: on oxygen, breathing treatments.
[2020-03-05] MEDS: OXYCODONE HCL SR 10 MG TABLET PO SCH (21:16)
[2020-03-05] MEDS: ATORVASTATIN CALCIUM 20 MG TABLET NG SCH (21:16)
[2020-03-05] MEDS: MONTELUKAST SODIUM 10 MG TABLET NG SCH (21:16)
[2020-03-05] MEDS: LINEZOLID 600 MG TABLET PO SCH (21:37)
[2020-03-06] MEDS: NORMAL SALINE 1000 ML 1,000 ML IV PRN ×2 (03:25→14:25)
[2020-03-06] MEDS: METRONIDAZOLE 500 MG/NS RTU 500 MG/100 ML RTUPB IV SCH (05:56)
[2020-03-06] MEDS: DILTIAZEM HCL 30 MG TABLET NG SCH ×3 (05:56→22:46)
[2020-03-06] MEDS: AZTREONAM 1 GM in DEXTROSE 5%-WATER 50 ML IV SCH (05:56)
[2020-03-06] MEDS: HEPARIN SOD (PORCINE) 5,000 UNIT/ML 1 ML VIAL SUBCUT SCH ×3 (06:01→22:58)
[2020-03-06 07:19] LABS: HEMATOCRIT 25.6 % (37.9-51.0); HEMOGLOBIN 8.5 g/dL (13.5-17.0); MEAN CORPUSCULAR HEMOGLOBIN 31.9 pg (27.0-33.4); MEAN CORPUSCULAR HGB CONC 33.2 g/dL (32.0-36.0); MEAN CORPUSCULAR VOLUME 96 fl (80-97); PLATELET COUNT 412 10^3/uL (150-450); RED BLOOD COUNT 2.67 10^6/uL (4.35-5.55); RED CELL DISTRIBUTION WIDTH 14.9 % (11.5-14.0); WHITE BLOOD COUNT 13.2 10^3/uL (4.0-10.5)
[2020-03-06 07:49] LABS: ANION GAP 9 (5-19); BLOOD UREA NITROGEN 38 mg/dL (7-20); CALCIUM 8.7 mg/dL (8.4-10.2); CARBON DIOXIDE 27 mmol/L (22-30); CHLORIDE 101 mmol/L (98-107); GLUCOSE 93 mg/dL (75-110); POTASSIUM 3.8 mmol/L (3.6-5.0)
[2020-03-06] MEDS: IPRATROPIUM BROMIDE 0.02% NEB 0.5 MG/2.5 ML AMPUL NEB SCH ×3 (07:52→19:31)
--- NOTE | 2020-03-06 09:06 | PDOC PROGRESS REPORT ---
Subjective Progress Note for:: 03/06/20 Subjective:: Patient states that he is feeling much better today. Pain medications have been adjusted and he is thinking more clearly. He is passing flatus. He has not seen anyone from radiation oncology. He has many questions. Reason For Visit: RUPTURED APPENDIX,SEPSIS Physical Exam Vital Signs: Temp Pulse Resp BP Pulse Ox 97.5 F 133 H 20 139/50 H 90 L 03/06/20 08:00 03/06/20 08:00 03/06/20 08:00 03/06/20 08:00 03/06/20 07:52 Intake & Output 03/05/20 03/06/20 03/07/20 06:59 06:59 06:59 Intake Total 1880 2478 Output Total 1325 275 Balance 555 2203 Weight 117.5 kg 116.4 kg General appearance: PRESENT: no acute distress, obese Head exam: PRESENT: normocephalic Eye exam: PRESENT: EOMI Respiratory exam: PRESENT: unlabored GI/Abdominal exam: PRESENT: firm, hypoactive bowel sounds Extremities exam: ABSENT: pedal edema Neurological exam: PRESENT: alert, awake Psychiatric exam: PRESENT: appropriate affect Skin exam: PRESENT: normal color Results Laboratory Results: 03/06/20 06:25 03/06/20 06:25 03/06/20 03/06/20 06:25 06:25 WBC 13.2 H RBC 2.67 L Hgb 8.5 L Hct 25.6 L MCV 96 MCH 31.9 MCHC 33.2 RDW 14.9 H Plt Count 412 Sodium 136.7 L Potassium 3.8 Chloride 101 Carbon Dioxide 27 Anion Gap 9 BUN 38 H Creatinine 0.90 Est GFR ( Amer) > 60 Glucose 93 Calcium 8.7 02/21/20 02/21/20 02/21/20 16:15 19:29 19:29 CK-MB (CK-2) 1.34 Troponin I 1.170 0.926 NT-Pro-B Natriuret Pep 289 H 02/22/20 02/22/20 00:21 06:01 CK-MB (CK-2) 1.13 0.79 Troponin I 0.587 0.409 NT-Pro-B Natriuret Pep Impressions: Chest X-Ray 02/22/20 00:00 IMPRESSION: Minimal bibasilar atelectasis with otherwise no acute disease. Abdomen/Pelvis CT 02/29/20 00:00 IMPRESSION: 1. History of recent colonic resection. On the images from the study, it appears that some portion of the right colon was removed. The remaining colon is not dilated. There is mild thickening in the rectosigmoid colon. There is mild thickening outside the distal colon in the left pelvis. 2. Suspected distal small bowel obstruction. Transition zone possibly identify in right lower quadrant. Very minimal thickening of the small bowel. However this is more likely due to adhesions. 3. Suspected metastatic bone disease in lower thoracic spine and the lumbar spine and sacrum. 4. Right lower lobe nodule more likely metastatic. Mild atelectasis left lower lobe. Head CT 02/29/20 00:00 IMPRESSION: Peripherally enhancing mass with surrounding edema at the level of the left occipital lobe compatible with metastatic disease. KUB X-Ray 03/01/20 00:00 IMPRESSION: Persistent appearance of multiple gas distended loops of bowel. Enteric tube terminating subdiaphragmatically within the left upper quadrant. A small focus of gas seen subjacent to the left hemidiaphragm likely represents residual post laparoscopic insufflation gas. Small Bowel X-Ray 03/01/20 00:00 IMPRESSION: Nonfilling of mid and distal loops of small bowel at five hours. The patient vomited large volume of contrast from the stomach. Delayed imaging to be acquired at two hours Renal Ultrasound 03/04/20 00:00 IMPRESSION: 1. Poor evaluation of the right kidney. 2. Left kidney looks unremarkable. 3. Bladder not seen, decompressed by a Ross catheter. Assessment & Plan - Diagnosis (1) Appendicitis Qualifiers: Appendicitis type: acute appendicitis Acute appendicitis type: with locali zed peritonitis Appendicitis gangrene presence: unspecified whether gangrene present Appendicitis perforation presence: with perforation Appendicitis abscess presence: with abscess Qualified Code(s): K35.33 - Acute appendicitis with perforation and localized peritonitis, with abscess Is this a current diagnosis for this admission?: Yes (2) Lung nodules Is this a current diagnosis for this admission?: Yes (3) Lung cancer Qualifiers: Laterality: right Lung location: lower lobe of lung Qualified Code(s): C34.31 - Malignant neoplasm of lower lobe, right bronchus or lung Is this a current diagnosis for this admission?: Yes Plan: I answered all of his questions. Plan is for radiation to the brain to start DELANO while awaiting recovery from surgery. Then, plan to start chemo as an outpatient. He will need a port place. I discussed his care with Dr. Rowell this morning. Radiation Oncology has been consulted. - Time Time Spent with patient: 15-24 minutes
--- NOTE | 2020-03-06 09:09 | PDOC PROGRESS REPORT ---
Subjective Progress Note for:: 03/06/20 Reason For Visit: RUPTURED APPENDIX,SEPSIS Physical Exam Vital Signs: Temp Pulse Resp BP Pulse Ox 97.5 F 133 H 20 139/50 H 90 L 03/06/20 08:00 03/06/20 08:00 03/06/20 08:00 03/06/20 08:00 03/06/20 07:52 Intake & Output 03/05/20 03/06/20 03/07/20 06:59 06:59 06:59 Intake Total 1880 2478 Output Total 1325 275 Balance 555 2203 Weight 117.5 kg 116.4 kg Results Laboratory Results: 03/06/20 06:25 03/06/20 06:25 03/06/20 03/06/20 06:25 06:25 WBC 13.2 H RBC 2.67 L Hgb 8.5 L Hct 25.6 L MCV 96 MCH 31.9 MCHC 33.2 RDW 14.9 H Plt Count 412 Sodium 136.7 L Potassium 3.8 Chloride 101 Carbon Dioxide 27 Anion Gap 9 BUN 38 H Creatinine 0.90 Est GFR ( Amer) > 60 Glucose 93 Calcium 8.7 02/21/20 02/21/20 02/21/20 16:15 19:29 19:29 CK-MB (CK-2) 1.34 Troponin I 1.170 0.926 NT-Pro-B Natriuret Pep 289 H 02/22/20 02/22/20 00:21 06:01 CK-MB (CK-2) 1.13 0.79 Troponin I 0.587 0.409 NT-Pro-B Natriuret Pep Impressions: Chest X-Ray 02/22/20 00:00 IMPRESSION: Minimal bibasilar atelectasis with otherwise no acute disease. Abdomen/Pelvis CT 02/29/20 00:00 IMPRESSION: 1. History of recent colonic resection. On the images from the study, it appears that some portion of the right colon was removed. The remaining colon is not dilated. There is mild thickening in the rectosigmoid colon. There is mild thickening outside the distal colon in the left pelvis. 2. Suspected distal small bowel obstruction. Transition zone possibly identify in right lower quadrant. Very minimal thickening of the small bowel. However this is more likely due to adhesions. 3. Suspected metastatic bone disease in lower thoracic spine and the lumbar spine and sacrum. 4. Right lower lobe nodule more likely metastatic. Mild atelectasis left lower lobe. Head CT 02/29/20 00:00 IMPRESSION: Peripherally enhancing mass with surrounding edema at the level of the left occipital lobe compatible with metastatic disease. KUB X-Ray 03/01/20 00:00 IMPRESSION: Persistent appearance of multiple gas distended loops of bowel. Enteric tube terminating subdiaphragmatically within the left upper quadrant. A small focus of gas seen subjacent to the left hemidiaphragm likely represents residual post laparoscopic insufflation gas. Small Bowel X-Ray 03/01/20 00:00 IMPRESSION: Nonfilling of mid and distal loops of small bowel at five hours. The patient vomited large volume of contrast from the stomach. Delayed imaging to be acquired at two hours Renal Ultrasound 03/04/20 00:00 IMPRESSION: 1. Poor evaluation of the right kidney. 2. Left kidney looks unremarkable. 3. Bladder not seen, decompressed by a Ross catheter. Assessment & Plan - Diagnosis (1) Metastatic lung cancer (metastasis from lung to other site) Qualifiers: Laterality: unspecified laterality Qualified Code(s): C34.90 - Malignant neoplasm of unspecified part of unspecified bronchus or lung Is this a current diagnosis for this admission?: Yes - Plan Summary Plan Summary: This is a 69-year-old male status post re-exploratory laparotomy with right hemicolectomy (for anastomotic leak) due to metastatic lung cancer. The patient reports midline abdominal pain, that is relieved with medication. He denies any nausea or vomiting. He reports continuing to pass flatus. Will advance to clear liquids. I have encouraged ambulation again today. Aggressive pulmonary toilet.
[2020-03-06] MEDS ORDERED: FUROSEMIDE 20 MG TABLET PO SCH (10:00)
[2020-03-06] MEDS: OXYCODONE HCL SR 10 MG TABLET PO SCH ×2 (10:38→22:45)
[2020-03-06] MEDS: CARVEDILOL 12.5 MG TABLET NG SCH ×2 (10:39→22:46)
[2020-03-06] MEDS: FLECAINIDE ACETATE 100 MG TABLET NG SCH (10:39)
[2020-03-06] MEDS: DOCUSATE SODIUM 100 MG CAPSULE PO SCH ×2 (10:39→17:15)
[2020-03-06] MEDS: LISINOPRIL 10 MG TABLET NG SCH (10:39)
[2020-03-06] MEDS: LINEZOLID 600 MG TABLET PO SCH ×2 (10:40→22:46)
[2020-03-06] MEDS: LIDOCAINE 5% (700 MG) TRANSDERMAL ADH..PATCH TP SCH (10:40)
[2020-03-06] MEDS: FLUTICASONE/UMECLIDIN/VILANTER 100-62.5-25 MCG/DOSE IH SCH (10:40)
[2020-03-06] MEDS: ASPIRIN 81 MG TABLET, CHEWABLE NG SCH (10:40)
[2020-03-06] MEDS: POLYETHYLENE GLYCOL 3350 POWDER 17 GM/1 PACKET NG SCH (10:40)
[2020-03-06] MEDS: FAMOTIDINE INJ/PF 20 MG/2 ML SDV IV SCH ×2 (10:40→22:46)
--- NOTE | 2020-03-06 10:48 | RADIOLOGY REPORT (SQ) ---
EXAM DESCRIPTION: KUB/ABDOMEN (SINGLE VIEW) IMAGES COMPLETED DATE/TIME: 03/06/2020 10:20 am REASON FOR STUDY: distention COMPARISON: 03/01/2020 NUMBER OF VIEWS: One view. TECHNIQUE: Supine radiographic image of the abdomen acquired. LIMITATIONS: None. FINDINGS: Interval removal of the nasogastric tube. Gas-filled loops of nondilated large and small bowel. IMPRESSION: Postoperative ileus. TECHNICAL DOCUMENTATION: JOB ID: [id number] [employer]- All Rights Reserved Reading location - IP/workstation name: [email or web address]
--- NOTE | 2020-03-06 14:55 | Progress Note ---
Provider Note Provider Note: CARDIOLOGY PROGRESS NOTE by Dr. Paris Vargas on 03/06/2020. SUBJECTIVE: There is no further episodes of paroxysmal atrial fibrillation. The patient is passing flatus and had a bowel movement. There is no nausea vomiting. His renal function is back to normal. There is no ventricle arrhythmia seen on the monitor. The patient denies chest pain or discomfort and there is no shortness of breath. There is no PND orthopnea. The patient is ambulating in the room and to a certain extent in the hallway. PHYSICAL EXAMINATION: The patient is morbidly obese. In no acute distress Selected Entries 03/06/20 03/06/20 12:00 14:35 Temperature 97.6 F Temperature Oral Source Pulse Rate 70 Respiratory 16 Rate Blood Pressure 121/50 L [Right 1] Blood Pressure 73 Mean [Right 1] Blood Pressure Supine Position [Right 1] Oxygen Delivery Nasal Cannula Method ( includes room air) Oxygen Flow 3 Rate HEAD: Is atraumatic normocephalic. EYES: Pupils are equal round regular reactive light accommodation. ENT is negative NECK: Is supple. There is no JVD. Carotids are equal there is no bruits. There is no lymphadenopathy. There is no goiter. There is no accessory muscle respiration use. LUNGS: There is diminished air entry prolonged expiration. There is no rhonchi rales or wheezing. On percussion there is hyperresonance. HEART: S1-S2 is heard. There is no S3 gallop there is no S4 gallop. There is systolic murmur left sternal border and the apex. There is no rub. ABDOMEN: Is obese. Mildly distended. Bowel sounds are present but very weak.. The patient has an NG tube in situ which is draining fluid. Surgical dressing is dry and clean.. EXTREMITIES femorals are diminished there is no femoral bruits. Leg pulses are diminished. There is no pedal edema. There is no DVT or cellulitis. There is no calf tenderness. There is no cyanosis or clubbing. DESIGN MAKER: The patient is conscious awake oriented x3 with no focal deficit. PSYCHIATRIC: Patient judgment insight are intact his affect is normal. Labs- All tests 24 hr 03/06/20 03/06/20 06:25 06:25 WBC 13.2 H RBC 2.67 L Hgb 8.5 L Hct 25.6 L MCV 96 MCH 31.9 MCHC 33.2 RDW 14.9 H Plt Count 412 Sodium 136.7 L Potassium 3.8 Chloride 101 Carbon Dioxide 27 Anion Gap 9 BUN 38 H Creatinine 0.90 Est GFR ( Amer) > 60 Est GFR (MDRD) Non-Af > 60 Glucose 93 Calcium 8.7 Abdomen/Pelvis CT 02/21/20 14:37 IMPRESSION: 1. Increased size of the right lower lobe pulmonary nodule measuring 2.1 cm, previously 1.6 cm. Malignancy is highy suspected. PET-CT or tissue sampling should be considered 2. Dilated appendix with significant pericecal inflammatory change compatible with acute appendicitis. No focal drainable collection. Recommend surgical consultation. 3. Innumerable lucent osseous lesions suggestive neoplasm, likely metastatic disease versus multiple myeloma. Findings discussed with Dr. Gamble At 1519 hours on 02/21/2020. Chest X-Ray 02/22/20 00:00 IMPRESSION: Minimal bibasilar atelectasis with otherwise no acute disease. KUB X-Ray 02/28/20 00:00 IMPRESSION: Ileus versus small-bowel obstruction. Abdomen/Pelvis CT 02/29/20 00:00 IMPRESSION: 1. History of recent colonic resection. On the images from the study, it appears that some portion of the right colon was removed. The remaining colon is not dilated. There is mild thickening in the rectosigmoid colon. There is mild thickening outside the distal colon in the left pelvis. 2. Suspected distal small bowel obstruction. Transition zone possibly identify in right lower quadrant. Very minimal thickening of the small bowel. However this is more likely due to adhesions. 3. Suspected metastatic bone disease in lower thoracic spine and the lumbar spine and sacrum. 4. Right lower lobe nodule more likely metastatic. Mild atelectasis left lower lobe. Head CT 02/29/20 00:00 IMPRESSION: Peripherally enhancing mass with surrounding edema at the level of the left occipital lobe compatible with metastatic disease. KUB X-Ray 02/29/20 08:07 IMPRESSION: 1. Interval placement of nasogastric tube since the prior study dated 02/28/2020 as above. KUB X-Ray 03/01/20 00:00 IMPRESSION: Persistent appearance of multiple gas distended loops of bowel. Enteric tube terminating subdiaphragmatically within the left upper quadrant. A small focus of gas seen subjacent to the left hemidiaphragm likely represents residual post laparoscopic insufflation gas. Small Bowel X-Ray 03/01/20 00:00 IMPRESSION: Nonfilling of mid and distal loops of small bowel at five hours. The patient vomited large volume of contrast from the stomach. Delayed imaging to be acquired at two hours Renal Ultrasound 03/04/20 00:00 IMPRESSION: 1. Poor evaluation of the right kidney. 2. Left kidney looks unremarkable. 3. Bladder not seen, decompressed by a Ross catheter. KUB X-Ray 03/06/20 00:00 IMPRESSION: Postoperative ileus. IMPRESSION/RECOMMENDATION: 1. Paroxysmal atrial fibrillation. No further episodes of recurrent episodes of atrial fibrillation.. Continue flecainide. 2. Acute renal failure secondary to fever infection, tachycardia, vancomycin toxicity and multiple contrast load. Renal function now is back to normal with a GFR greater than 60. 3. Acute appendicitis. S/p surgery. The patient has a phlegmon and an ruptured appendiceal abscess. Pathology report shows metastatic lung cancer in the appendicectomy specimen. Primary 4. No evidence of acute coronary syndrome. The patient has no anginal symptoms. The patient on 10/25/2019 has had a negative Cardiolite stress test. Also he has no known history of coronary artery disease. Elevated troponin I secondary to supply demand mismatch. This is resolved. 5. History of paroxysmal l atrial fibrillation: The patient had a brief run of recurrent atrial fibrillation with rapid ventricle response. This reverted back to sinus rhythm when the patient was given flecainide at an earlier time. No further recurrence of paroxysmal atrial fibrillation. 6. Hypertension: BP well controlled 7. Hyperlipidemia. 8. COPD: Without exacerbation. 9. Primary lung cancer with bony mets. This will be worked up by oncology. 10. Prior history of cardiomyopathy. The patient's echo in September 2019 showed LV ejection fraction 65 to 70%. 1. Postop ileus resolved. Patient passing flatus and is taking p.o. without nausea vomiting. Medications reviewed medical regimen and management plan discussed with attending provider. Medical decision making is a moderate complexity. 40 minutes spent as patient more than 50% time spent direct patient care. Will follow.
--- NOTE | 2020-03-06 15:13 | PDOC PROGRESS REPORT ---
Subjective Progress Note for:: 03/06/20 Subjective:: Mr. Adithya Diaz is 69 years old with past medical history of A. fib, CHF, hypertension, hyperlipidemia, COPD, sleep apnea, GERD, who was admitted on 02/22/2020 complaining of abdominal discomfort, nausea, vomiting, anorexia with fever and was found to have a perforated appendix, he is status post partial colectomy by surgery patient initially admitted to ICU and transferred to floor on 02/25/2020. Patient was seen on morning rounds. He is found resting in bed, comfortably, on supplemental oxygen via nasal cannula. He is somewhat sleepy this morning; states that he is getting ready to take a nap. He reports that he continues to pass flatus but has not yet had a bowel movement. Otherwise, his pain is much improved. He tells me that he feels that his pain is adequately controlled without the disorientation/sedation that was associated with his Dilaudid. He is very hopeful that he will continue to improve and be able to discharge directly home in the near future. Otherwise, he has no new questions or concerns today. He denies fever, chills, chest pain, palpitations, dyspnea, orthopnea, cough, nausea and vomiting. No concerns per nursing. Reason For Visit: RUPTURED APPENDIX,SEPSIS Physical Exam Vital Signs: Temp Pulse Resp BP Pulse Ox 97.6 F 67 16 121/50 L 97 03/06/20 12:00 03/06/20 14:35 03/06/20 14:35 03/06/20 12:00 03/06/20 14:35 Intake & Output 03/05/20 03/06/20 03/07/20 06:59 06:59 06:59 Intake Total 1880 2478 1500 Output Total 1325 275 Balance 555 2203 1500 Weight 117.5 kg 116.4 kg General appearance: PRESENT: no acute distress, cooperative, morbidly obese, well-developed, well-nourished Head exam: PRESENT: atraumatic, normocephalic Eye exam: PRESENT: conjunctiva pink, EOMI, PERRLA. ABSENT: scleral icterus Mouth exam: PRESENT: moist, tongue midline Neck exam: ABSENT: carotid bruit, JVD, lymphadenopathy, thyromegaly Respiratory exam: PRESENT: clear to auscultation anshul, symmetrical, unlabored, other - Omental oxygen by nasal cannula. ABSENT: rales, rhonchi, wheezes Cardiovascular exam: PRESENT: RRR, +S1, +S2. ABSENT: diastolic murmur, rubs, systolic murmur Vascular exam: PRESENT: normal capillary refill GI/Abdominal exam: PRESENT: distended, hypoactive bowel sounds, soft, tenderness. ABSENT: guarding, mass, organolmegaly, rebound Rectal exam: PRESENT: deferred Extremities exam: PRESENT: full ROM. ABSENT: calf tenderness, clubbing, pedal edema Neurological exam: PRESENT: alert, awake, oriented to person, oriented to place, oriented to time, oriented to situation, CN II-XII grossly intact. ABSENT: motor sensory deficit Psychiatric exam: PRESENT: appropriate affect, normal mood. ABSENT: homicidal ideation, suicidal ideation Skin exam: PRESENT: dry, intact, warm. ABSENT: cyanosis, rash Results Laboratory Results: 03/06/20 06:25 03/06/20 06:25 03/06/20 03/06/20 06:25 06:25 WBC 13.2 H RBC 2.67 L Hgb 8.5 L Hct 25.6 L MCV 96 MCH 31.9 MCHC 33.2 RDW 14.9 H Plt Count 412 Sodium 136.7 L Potassium 3.8 Chloride 101 Carbon Dioxide 27 Anion Gap 9 BUN 38 H Creatinine 0.90 Est GFR ( Amer) > 60 Glucose 93 Calcium 8.7 02/21/20 02/21/20 02/21/20 16:15 19:29 19:29 CK-MB (CK-2) 1.34 Troponin I 1.170 0.926 NT-Pro-B Natriuret Pep 289 H 02/22/20 02/22/20 00:21 06:01 CK-MB (CK-2) 1.13 0.79 Troponin I 0.587 0.409 NT-Pro-B Natriuret Pep Impressions: Chest X-Ray 02/22/20 00:00 IMPRESSION: Minimal bibasilar atelectasis with otherwise no acute disease. Abdomen/Pelvis CT 02/29/20 00:00 IMPRESSION: 1. History of recent colonic resection. On the images from the study, it appears that some portion of the right colon was removed. The remaining colon is not dilated. There is mild thickening in the rectosigmoid colon. There is mild thickening outside the distal colon in the left pelvis. 2. Suspected distal small bowel obstruction. Transition zone possibly identify in right lower quadrant. Very minimal thickening of the small bowel. However this is more likely due to adhesions. 3. Suspected metastatic bone disease in lower thoracic spine and the lumbar spine and sacrum. 4. Right lower lobe nodule more likely metastatic. Mild atelectasis left lower lobe. Head CT 02/29/20 00:00 IMPRESSION: Peripherally enhancing mass with surrounding edema at the level of the left occipital lobe compatible with metastatic disease. Small Bowel X-Ray 03/01/20 00:00 IMPRESSION: Nonfilling of mid and distal loops of small bowel at five hours. The patient vomited large volume of contrast from the stomach. Delayed imaging to be acquired at two hours Renal Ultrasound 03/04/20 00:00 IMPRESSION: 1. Poor evaluation of the right kidney. 2. Left kidney looks unremarkable. 3. Bladder not seen, decompressed by a Ross catheter. KUB X-Ray 03/06/20 00:00 IMPRESSION: Postoperative ileus. Assessment and Plan - Diagnosis (1) VICENTE (acute kidney injury) Is this a current diagnosis for this admission?: Yes Plan: Resolved Increased urine output Creatinine 2.93-> 1.71-> 0.90 This was likely vancomycin induced placated by postsurgical hypotension. Vancomycin trough 26.5 down from 39.6. FeNa 0.15%. Patient was also on Lasix, hence FeNA may not be reliable. Will get FEUr Renal ultrasound had poor evaluation of the right kidney, unremarkable left kidney. Discontinued vancomycin. Nephrology consulted. Appreciate their evaluation/recommendations. Strict and outs. Monitor volume status and electrolytes. Replace electrolytes as needed. Follow-up chemistry. (2) Ileus, postoperative Is this a current diagnosis for this admission?: Yes Plan: POD #4 status post laparotomy and revision of ileocolonic anastomosis and right hemicolectomy. Unfortunately patient is still not passing stool and has persistent abdominal distention. He is passing flatus. Surgery following. NG tube is out. Encourage ambulation. (3) Hypotension Qualifiers: Hypotension type: hypotension due to hypovolemia Qualified Code(s): I95.89 - Other hypotension; E86.1 - Hypovolemia Is this a current diagnosis for this admission?: Yes Plan: Improved blood pressure; 121/50. Patient has low p.o. intake and excessive gastric drainage with worsening leukocytosis however afebrile. Is already on broad-spectrum IV antibiotics. Monitor vitals volume status. Hold antihypertensives if MAP <65 or symptomatic. Continue fluid resuscitation guided by volume status. Defer medication regimen to cardiology; Dr. Sen is consulted. Appreciate his assistance. (4) Status post colon resection Is this a current diagnosis for this admission?: Yes Plan: POD 4 status post 2nd laparotomy and revision of ileocolonic anastomosis and right hemicolectomy. POD 13 status post ileocolectomy, with intermittent ileus. Secondary to perforated appendiceal metastasis from lung cancer. Diet per surgery. Encourage ambulation. Primary management per surgery; recommendations noted. (5) Lung cancer Qualifiers: Laterality: unspecified laterality Lung location: unspecified part of lung Qualified Code(s): C34.90 - Malignant neoplasm of unspecified part of unspecified bronchus or lung Is this a current diagnosis for this admission?: Yes Plan: Metastatic stage IV lung cancer. Perforated appendix turned out to be lung metastasis to abdomen. CT head is also positive for metastatic lesion. Oncology consult. Chemotherapy is planned once patient is discharged from the hospital. Possible radiation treatments prior to d/c (6) Peritonitis with abscess of intestine Is this a current diagnosis for this admission?: Yes Plan: Secondary to perforated appendiceal metastasis. Abdominal fluid growing Enterobacter, Streptococcus, Peptostreptococcus and Bacteroides. Afebrile. Leukocytosis is improved today; WBC 20-> 14-> 30-> 24-> 18-> 13 Day #6 IV vancomycin; placed on hold r/t ATN/Vanc toxicity. Start oral Zyvoxx. Day #2 Day #12 IV aztreonam. Day #12 IV metronidazole. Day #11/14 IV antibiotics. Infectious disease specialist consulted. Recommendation is IV antibiotics for 14 days post source control. (7) Obesity hypoventilation syndrome Is this a current diagnosis for this admission?: Yes Plan: Nocturnal BiPAP. Supplemental oxygen. (8) COPD exacerbation Is this a current diagnosis for this admission?: Yes Plan: Does not seem to be acutely exacerbated. History of COPD oxygen dependent on 2 L nasal cannula. Resume home meds. PRN duo nebs. PRN BiPAP. (9) Atrial fibrillation Qualifiers: Atrial fibrillation type: paroxysmal Qualified Code(s): I48.0 - Paroxysmal atrial fibrillation Is this a current diagnosis for this admission?: Yes Plan: Rate controlled. Status post ablation. On beta-blockers and Cardizem. Not anticoagulated, due to recent abdominal surgery. Home medication is Eliquis 5 mg p.o. twice daily. Continue Cardizem. Continue beta-blockers. Resume Eliquis once appropriate. Cardiology consulted recommendations noted. (10) Appendicitis Qualifiers: Appendicitis type: acute appendicitis Acute appendicitis type: with localized peritonitis Appendicitis gangrene presence: unspecified whether gangrene present Appendicitis perforation presence: with perforation Appendicitis abscess presence: with abscess Qualified Code(s): K35.33 - Acute appendicitis with perforation and localized peritonitis, with abscess Is this a current diagnosis for this admission?: Yes Plan: As above. Initially thought to be deep and started to return at to be metastatic lung cancer as per pathology report. Complicated perforated appendix status post exploratory laparotomy and hemicolectomy. (11) HAIDER (obstructive sleep apnea) Is this a current diagnosis for this admission?: Yes Plan: Nocturnal BiPAP. Supplemental oxygen. (12) Metastasis Qualifiers: Area of secondary neoplastic involvement: bone Qualified Code(s): C79.51 - Secondary malignant neoplasm of bone Is this a current diagnosis for this admission?: Yes Plan: As above. (13) Lung nodules Is this a current diagnosis for this admission?: Yes Plan: Oncology on board. Outpatient follow-up is recommended. (14) Elevated troponin Is this a current diagnosis for this admission?: Yes Plan: Trending down. Chest pain free. Although EKG did not demonstrate acute ischemic changes, his troponin was elevated. Therefore cardiology was consulted. Discussed this case with Dr. Vargas (cardiology) who feels that the elevated troponin is related with his sepsis and not due to an acute cardiac event. Cardiology is consulted; appreciate Dr. Sen's assistance. - Time Time Spent with patient: 35 or more minutes Medications reviewed and adjusted accordingly: Yes Anticipated discharge: Home with Homehealth
--- NOTE | 2020-03-06 15:53 | PDOC PROGRESS REPORT ---
Subjective Progress Note for:: 03/06/20 Subjective:: Patient was seen sitting up at the edge of his bed. At the time he claims to be doing much better. His only complaint is how much he has to get up to use the restroom and even then he does not feel he is completely emptying his bladder. He does not want to have another smith placed. Still working on having a bowel movement. Reason For Visit: RUPTURED APPENDIX,SEPSIS Physical Exam Vital Signs: Temp Pulse Resp BP Pulse Ox 97.6 F 67 16 121/50 L 97 03/06/20 12:00 03/06/20 14:35 03/06/20 14:35 03/06/20 12:00 03/06/20 14:35 Intake & Output 03/05/20 03/06/20 03/07/20 06:59 06:59 06:59 Intake Total 1880 2478 1500 Output Total 1325 275 Balance 555 2203 1500 Weight 117.5 kg 116.4 kg General appearance: PRESENT: no acute distress, well-developed, well-nourished Mouth exam: PRESENT: moist, neck supple Neck exam: ABSENT: JVD, tracheal deviation Respiratory exam: PRESENT: clear to auscultation anshul. ABSENT: crackles, rales, wheezes Cardiovascular exam: PRESENT: RRR, +S1, +S2 GI/Abdominal exam: PRESENT: firm, tenderness. ABSENT: soft Extremities exam: PRESENT: pedal edema, +2 edema. ABSENT: tenderness Neurological exam: PRESENT: alert, awake, oriented to person, oriented to place, oriented to time, oriented to situation Skin exam: PRESENT: dry, intact, warm. ABSENT: cyanosis Results Laboratory Results: 03/06/20 06:25 03/06/20 06:25 03/06/20 03/06/20 06:25 06:25 WBC 13.2 H RBC 2.67 L Hgb 8.5 L Hct 25.6 L MCV 96 MCH 31.9 MCHC 33.2 RDW 14.9 H Plt Count 412 Sodium 136.7 L Potassium 3.8 Chloride 101 Carbon Dioxide 27 Anion Gap 9 BUN 38 H Creatinine 0.90 Est GFR ( Amer) > 60 Glucose 93 Calcium 8.7 02/21/20 02/21/20 02/21/20 16:15 19:29 19:29 CK-MB (CK-2) 1.34 Troponin I 1.170 0.926 NT-Pro-B Natriuret Pep 289 H 02/22/20 02/22/20 00:21 06:01 CK-MB (CK-2) 1.13 0.79 Troponin I 0.587 0.409 NT-Pro-B Natriuret Pep Impressions: Chest X-Ray 02/22/20 00:00 IMPRESSION: Minimal bibasilar atelectasis with otherwise no acute disease. Abdomen/Pelvis CT 02/29/20 00:00 IMPRESSION: 1. History of recent colonic resection. On the images from the study, it appears that some portion of the right colon was removed. The remaining colon is not dilated. There is mild thickening in the rectosigmoid colon. There is mild thickening outside the distal colon in the left pelvis. 2. Suspected distal small bowel obstruction. Transition zone possibly identify in right lower quadrant. Very minimal thickening of the small bowel. However this is more likely due to adhesions. 3. Suspected metastatic bone disease in lower thoracic spine and the lumbar spine and sacrum. 4. Right lower lobe nodule more likely metastatic. Mild atelectasis left lower lobe. Head CT 02/29/20 00:00 IMPRESSION: Peripherally enhancing mass with surrounding edema at the level of the left occipital lobe compatible with metastatic disease. Small Bowel X-Ray 03/01/20 00:00 IMPRESSION: Nonfilling of mid and distal loops of small bowel at five hours. The patient vomited large volume of contrast from the stomach. Delayed imaging to be acquired at two hours Renal Ultrasound 03/04/20 00:00 IMPRESSION: 1. Poor evaluation of the right kidney. 2. Left kidney looks unremarkable. 3. Bladder not seen, decompressed by a Smith catheter. KUB X-Ray 03/06/20 00:00 IMPRESSION: Postoperative ileus. Assessment & Plan - Diagnosis (1) VICENTE (acute kidney injury) Is this a current diagnosis for this admission?: Yes Plan: nonoliguric, looks to have recovered. At this time will stop the fluids due to the swelling. Increase furosemide to 20mg BID and add flomax for better passing of his urine. Looks to be describing bph like symptoms. (2) Hypotension Qualifiers: Hypotension type: hypotension due to hypovolemia Qualified Code(s): I95.89 - Other hypotension; E86.1 - Hypovolemia Is this a current diagnosis for this admission?: Yes Plan: resolved (3) Appendicitis Qualifiers: Appendicitis type: acute appendicitis Acute appendicitis type: with localized peritonitis Appendicitis gangrene presence: unspecified whether gangrene present Appendicitis perforation presence: with perforation Appendicitis abscess presence: with abscess Qualified Code(s): K35.33 - Acute appendicitis with perforation and localized peritonitis, with abscess Is this a current diagnosis for this admission?: Yes Plan: antibiotics look to be properly dosed per kidney function (4) Cecostomy status Plan: per surgery (5) Ileus, postoperative Is this a current diagnosis for this admission?: Yes Plan: per surgery (6) Metastatic lung cancer (metastasis from lung to other site) Qualifiers: Laterality: unspecified laterality Qualified Code(s): C34.90 - Malignant neoplasm of unspecified part of unspecified bronchus or lung Is this a current diagnosis for this admission?: Yes Plan: per oncology (7) Peritonitis with abscess of intestine Is this a current diagnosis for this admission?: Yes Plan: antibiotics look to be properly dosed per kidney function (8) HAIDER (obstructive sleep apnea) Is this a current diagnosis for this admission?: Yes Plan: on bipap at night (9) Atrial fibrillation Qualifiers: Atrial fibrillation type: paroxysmal Qualified Code(s): I48.0 - Paroxysmal atrial fibrillation Is this a current diagnosis for this admission?: Yes Plan: was on cardiazem, management per cardiology (10) Elevated troponin Is this a current diagnosis for this admission?: Yes Plan: per cardiology (11) COPD exacerbation Is this a current diagnosis for this admission?: Yes Plan: stable
[2020-03-06] MEDS: OXYCODONE-ACETAMINOPHEN 5-325 MG TABLET PO PRN (17:15)
[2020-03-06] MEDS: TAMSULOSIN HCL 0.4 MG CAP.SR.24H PO SCH (17:15)
[2020-03-06] MEDS: FUROSEMIDE 20 MG TABLET PO SCH (17:15)
[2020-03-06] MEDS: MONTELUKAST SODIUM 10 MG TABLET NG SCH (22:45)
[2020-03-06] MEDS: ATORVASTATIN CALCIUM 20 MG TABLET NG SCH (22:45)
[2020-03-07] MEDS: OXYCODONE-ACETAMINOPHEN 5-325 MG TABLET PO PRN ×2 (04:05→16:09)
[2020-03-07] MEDS: HEPARIN SOD (PORCINE) 5,000 UNIT/ML 1 ML VIAL SUBCUT SCH ×3 (05:23→21:28)
[2020-03-07] MEDS: DILTIAZEM HCL 30 MG TABLET NG SCH ×3 (05:23→21:36)
[2020-03-07 08:24] LABS: MEAN CORPUSCULAR HEMOGLOBIN 31.6 pg (27.0-33.4); MEAN CORPUSCULAR HGB CONC 33.3 g/dL (32.0-36.0); MEAN CORPUSCULAR VOLUME 95 fl (80-97); PLATELET COUNT 358 10^3/uL (150-450); RED BLOOD COUNT 2.53 10^6/uL (4.35-5.55); RED CELL DISTRIBUTION WIDTH 14.6 % (11.5-14.0); WHITE BLOOD COUNT 10.2 10^3/uL (4.0-10.5)
[2020-03-07] MEDS: IPRATROPIUM BROMIDE 0.02% NEB 0.5 MG/2.5 ML AMPUL NEB SCH ×3 (08:29→20:13)
[2020-03-07 08:44] LABS: BLOOD UREA NITROGEN 20 mg/dL (7-20); CALCIUM 8.4 mg/dL (8.4-10.2); GLUCOSE 99 mg/dL (75-110); POTASSIUM 3.7 mmol/L (3.6-5.0)
[2020-03-07 08:49] LABS: CARBON DIOXIDE 28 mmol/L (22-30); CHLORIDE 103 mmol/L (98-107)
[2020-03-07 08:57] LABS: ANION GAP 3 (5-19)
[2020-03-07] MEDS: LISINOPRIL 10 MG TABLET NG SCH (09:44)
[2020-03-07] MEDS: CARVEDILOL 12.5 MG TABLET NG SCH ×2 (09:44→21:36)
[2020-03-07] MEDS: DOCUSATE SODIUM 100 MG CAPSULE PO SCH ×2 (09:44→17:14)
[2020-03-07] MEDS: POLYETHYLENE GLYCOL 3350 POWDER 17 GM/1 PACKET NG SCH (09:45)
[2020-03-07] MEDS: ASPIRIN 81 MG TABLET, CHEWABLE NG SCH (09:45)
[2020-03-07] MEDS: OXYCODONE HCL SR 10 MG TABLET PO SCH ×2 (09:45→21:36)
[2020-03-07] MEDS: FUROSEMIDE 20 MG TABLET PO SCH ×2 (09:45→17:14)
[2020-03-07] MEDS: FLUTICASONE/UMECLIDIN/VILANTER 100-62.5-25 MCG/DOSE IH SCH (09:45)
[2020-03-07] MEDS: LINEZOLID 600 MG TABLET PO SCH (09:46)
[2020-03-07] MEDS: LIDOCAINE 5% (700 MG) TRANSDERMAL ADH..PATCH TP SCH (09:46)
[2020-03-07] MEDS: FLECAINIDE ACETATE 100 MG TABLET NG SCH (09:46)
[2020-03-07] MEDS: FAMOTIDINE INJ/PF 20 MG/2 ML SDV IV SCH ×2 (09:48→21:37)
--- NOTE | 2020-03-07 11:52 | PDOC PROGRESS REPORT ---
Subjective Progress Note for:: 03/07/20 Reason For Visit: RUPTURED APPENDIX,SEPSIS Patient is sitting up in chair, having flatus but no stool. Is on liquids. Physical Exam Vital Signs: Temp Pulse Resp BP Pulse Ox 97.9 F 74 14 137/75 H 96 03/07/20 08:10 03/07/20 08:29 03/07/20 08:29 03/07/20 08:10 03/07/20 08:29 Intake & Output 03/06/20 03/07/20 03/08/20 06:59 06:59 06:59 Intake Total 2478 2908 Output Total 275 260 Balance 2203 2648 Weight 116.4 kg 122.7 kg General appearance: PRESENT: no acute distress GI/Abdominal exam: PRESENT: other - Dressing removed; rajesh intact abdomen soft Results Laboratory Results: 03/07/20 07:48 03/07/20 07:48 03/07/20 03/07/20 07:48 07:48 WBC 10.2 RBC 2.53 L Hgb 8.0 L Hct 24.0 L MCV 95 MCH 31.6 MCHC 33.3 RDW 14.6 H Plt Count 358 Sodium 133.5 L Potassium 3.7 Chloride 103 Carbon Dioxide 28 Anion Gap 3 L BUN 20 Creatinine 0.83 Est GFR ( Amer) > 60 Glucose 99 Calcium 8.4 02/21/20 02/21/20 02/21/20 16:15 19:29 19:29 CK-MB (CK-2) 1.34 Troponin I 1.170 0.926 NT-Pro-B Natriuret Pep 289 H 02/22/20 02/22/20 00:21 06:01 CK-MB (CK-2) 1.13 0.79 Troponin I 0.587 0.409 NT-Pro-B Natriuret Pep Impressions: Chest X-Ray 02/22/20 00:00 IMPRESSION: Minimal bibasilar atelectasis with otherwise no acute disease. Abdomen/Pelvis CT 02/29/20 00:00 IMPRESSION: 1. History of recent colonic resection. On the images from the study, it appears that some portion of the right colon was removed. The remaining colon is not dilated. There is mild thickening in the rectosigmoid colon. There is mild thickening outside the distal colon in the left pelvis. 2. Suspected distal small bowel obstruction. Transition zone possibly identify in right lower quadrant. Very minimal thickening of the small bowel. However this is more likely due to adhesions. 3. Suspected metastatic bone disease in lower thoracic spine and the lumbar spine and sacrum. 4. Right lower lobe nodule more likely metastatic. Mild atelectasis left lower lobe. Head CT 02/29/20 00:00 IMPRESSION: Peripherally enhancing mass with surrounding edema at the level of the left occipital lobe compatible with metastatic disease. Small Bowel X-Ray 03/01/20 00:00 IMPRESSION: Nonfilling of mid and distal loops of small bowel at five hours. The patient vomited large volume of contrast from the stomach. Delayed imaging to be acquired at two hours Renal Ultrasound 03/04/20 00:00 IMPRESSION: 1. Poor evaluation of the right kidney. 2. Left kidney looks unremarkable. 3. Bladder not seen, decompressed by a Ross catheter. KUB X-Ray 03/06/20 00:00 IMPRESSION: Postoperative ileus. Assessment & Plan - Diagnosis (1) Status post colon resection Is this a current diagnosis for this admission?: Yes Plan: Impression: Patient 1 week status post reexploration, right colectomy ileotransverse colostomy, making slow progress, ileus resolving; patient needs to be more active physically. Recommendations: 1. Patient to get up and ambulate. This was discussed with nursing staff 2. Keep on full liquids for now. (2) COPD exacerbation Is this a current diagnosis for this admission?: Yes
--- NOTE | 2020-03-07 12:10 | Progress Note ---
Provider Note Provider Note: CARDIOLOGY PROGRESS NOTE by Dr. Paris Vargas on 03/07/2020. SUBJECTIVE: There is no further episodes of atrial fibrillation or flutter. There is no chest pain. There is no shortness of breath. There is no PND orthopnea. There is no nausea or vomiting and is tolerating diet. He is passing flatus which is still constipated and he had to have a bowel movement. PHYSICAL EXAMINATION: The patient is morbidly obese. In no acute distress. Selected Entries 03/07/20 08:10 Temperature 97.9 F Temperature Oral Source Pulse Rate 93 Respiratory 22 H Rate Blood Pressure 137/75 H Blood Pressure 95 Mean BP Location Left Arm BP Position Supine O2 Sat by Pulse 97 Oximetry Oxygen Flow 3 Rate HEAD: Is atraumatic normocephalic. EYES: Pupils are equal round regular reactive light accommodation. ENT is negative NECK: Is supple. There is no JVD. Carotids are equal there is no bruits. There is no lymphadenopathy. There is no goiter. There is no accessory muscle respiration use. LUNGS: There is diminished air entry prolonged expiration. There is no rhonchi rales or wheezing. On percussion there is hyperresonance. HEART: S1-S2 is heard. There is no S3 gallop there is no S4 gallop. There is systolic murmur left sternal border and the apex. There is no rub. ABDOMEN: Is obese. Mildly distended. Bowel sounds are present but very weak.. The patient has an NG tube in situ which is draining fluid. Surgical dressing is dry and clean.. EXTREMITIES femorals are diminished there is no femoral bruits. Leg pulses are diminished. There is no pedal edema. There is no DVT or cellulitis. There is no calf tenderness. There is no cyanosis or clubbing. ADMINISTRATOR PESTICIDE: The patient is conscious awake oriented x3 with no focal deficit. PSYCHIATRIC: Patient judgment insight are intact his affect is normal. Labs- All tests 24 hr 03/07/20 03/07/20 07:48 07:48 WBC 10.2 RBC 2.53 L Hgb 8.0 L Hct 24.0 L MCV 95 MCH 31.6 MCHC 33.3 RDW 14.6 H Plt Count 358 Sodium 133.5 L Potassium 3.7 Chloride 103 Carbon Dioxide 28 Anion Gap 3 L BUN 20 Creatinine 0.83 Est GFR ( Amer) > 60 Est GFR (MDRD) Non-Af > 60 Glucose 99 Calcium 8.4 Abdomen/Pelvis CT 02/21/20 14:37 IMPRESSION: 1. Increased size of the right lower lobe pulmonary nodule measuring 2.1 cm, previously 1.6 cm. Malignancy is highy suspected. PET-CT or tissue sampling should be considered 2. Dilated appendix with significant pericecal inflammatory change compatible with acute appendicitis. No focal drainable collection. Recommend surgical consultation. 3. Innumerable lucent osseous lesions suggestive neoplasm, likely metastatic disease versus multiple myeloma. Findings discussed with Dr. Gamble At 1519 hours on 02/21/2020. Chest X-Ray 02/22/20 00:00 IMPRESSION: Minimal bibasilar atelectasis with otherwise no acute disease. KUB X-Ray 02/28/20 00:00 IMPRESSION: Ileus versus small-bowel obstruction. Abdomen/Pelvis CT 02/29/20 00:00 IMPRESSION: 1. History of recent colonic resection. On the images from the study, it appears that some portion of the right colon was removed. The remaining colon is not dilated. There is mild thickening in the rectosigmoid colon. There is mild thickening outside the distal colon in the left pelvis. 2. Suspected distal small bowel obstruction. Transition zone possibly identify in right lower quadrant. Very minimal thickening of the small bowel. However this is more likely due to adhesions. 3. Suspected metastatic bone disease in lower thoracic spine and the lumbar spine and sacrum. 4. Right lower lobe nodule more likely metastatic. Mild atelectasis left lower lobe. Head CT 02/29/20 00:00 IMPRESSION: Peripherally enhancing mass with surrounding edema at the level of the left occipital lobe compatible with metastatic disease. KUB X-Ray 02/29/20 08:07 IMPRESSION: 1. Interval placement of nasogastric tube since the prior study dated 02/28/2020 as above. KUB X-Ray 03/01/20 00:00 IMPRESSION: Persistent appearance of multiple gas distended loops of bowel. Enteric tube terminating subdiaphragmatically within the left upper quadrant. A small focus of gas seen subjacent to the left hemidiaphragm likely represents residual post laparoscopic insufflation gas. Small Bowel X-Ray 03/01/20 00:00 IMPRESSION: Nonfilling of mid and distal loops of small bowel at five hours. The patient vomited large volume of contrast from the stomach. Delayed imaging to be acquired at two hours Renal Ultrasound 03/04/20 00:00 IMPRESSION: 1. Poor evaluation of the right kidney. 2. Left kidney looks unremarkable. 3. Bladder not seen, decompressed by a Ross catheter. KUB X-Ray 03/06/20 00:00 IMPRESSION: Postoperative ileus. IMPRESSION/RECOMMENDATION: 1. Paroxysmal atrial fibrillation. No further episodes of recurrent episodes of atrial fibrillation.. Continue flecainide. 2. Acute renal failure secondary to fever infection, tachycardia, vancomycin toxicity and multiple contrast load. Renal function now is back to normal with a GFR greater than 60. 3. Acute appendicitis. S/p surgery. The patient has a phlegmon and an ruptured appendiceal abscess. Pathology report shows metastatic lung cancer in the appendicectomy specimen. Primary 4. No evidence of acute coronary syndrome. The patient has no anginal symptoms. The patient on 10/25/2019 has had a negative Cardiolite stress test. Also he has no known history of coronary artery disease. Elevated troponin I secondary to supply demand mismatch. This is resolved. 5. History of paroxysmal l atrial fibrillation: The patient had a brief run of recurrent atrial fibrillation with rapid ventricle response. This reverted back to sinus rhythm when the patient was given flecainide at an earlier time. No further recurrence of paroxysmal atrial fibrillation. 6. Hypertension: BP well controlled 7. Hyperlipidemia. 8. COPD: Without exacerbation. 9. Primary lung cancer with bony mets. This will be worked up by oncology. 10. Prior history of cardiomyopathy. The patient's echo in September 2019 showed LV ejection fraction 65 to 70%. 1. Postop ileus resolved. Patient passing flatus and is taking p.o. without nausea vomiting. Medications reviewed medical regimen and management plan discussed with attending provider. Medical decision making is a moderate complexity. 40 minutes spent as patient more than 50% time spent direct patient care. Will follow.
--- NOTE | 2020-03-07 13:09 | PDOC PROGRESS REPORT ---
Subjective Progress Note for:: 03/07/20 Subjective:: Patient was seen sitting in his chair in his room He continues to pass flatulents but has not had a bowel movement. Currently he is on liquids because of that. He claims that urine out put has increased since starting flomax. Reason For Visit: RUPTURED APPENDIX,SEPSIS Physical Exam Vital Signs: Temp Pulse Resp BP Pulse Ox 97.2 F 57 L 18 110/50 L 97 03/07/20 12:00 03/07/20 12:00 03/07/20 12:00 03/07/20 12:00 03/07/20 12:00 Intake & Output 03/06/20 03/07/20 03/08/20 06:59 06:59 06:59 Intake Total 2478 2908 Output Total 275 260 Balance 2203 2648 Weight 116.4 kg 122.7 kg General appearance: PRESENT: no acute distress, well-developed, well-nourished Mouth exam: PRESENT: moist, neck supple Neck exam: ABSENT: JVD, tracheal deviation Respiratory exam: PRESENT: clear to auscultation anshul. ABSENT: crackles, rales, rhonchi, wheezes Cardiovascular exam: PRESENT: RRR, +S1, +S2 GI/Abdominal exam: PRESENT: firm, tenderness. ABSENT: soft Extremities exam: PRESENT: pedal edema, +2 edema. ABSENT: tenderness Musculoskeletal exam: PRESENT: normal inspection. ABSENT: tenderness Neurological exam: PRESENT: alert, awake, oriented to person, oriented to place, oriented to time, oriented to situation Skin exam: PRESENT: dry, intact, warm. ABSENT: cyanosis Results Laboratory Results: 03/07/20 07:48 03/07/20 07:48 03/07/20 03/07/20 07:48 07:48 WBC 10.2 RBC 2.53 L Hgb 8.0 L Hct 24.0 L MCV 95 MCH 31.6 MCHC 33.3 RDW 14.6 H Plt Count 358 Sodium 133.5 L Potassium 3.7 Chloride 103 Carbon Dioxide 28 Anion Gap 3 L BUN 20 Creatinine 0.83 Est GFR ( Amer) > 60 Glucose 99 Calcium 8.4 02/21/20 02/21/20 02/21/20 16:15 19:29 19:29 CK-MB (CK-2) 1.34 Troponin I 1.170 0.926 NT-Pro-B Natriuret Pep 289 H 02/22/20 02/22/20 00:21 06:01 CK-MB (CK-2) 1.13 0.79 Troponin I 0.587 0.409 NT-Pro-B Natriuret Pep Impressions: Chest X-Ray 02/22/20 00:00 IMPRESSION: Minimal bibasilar atelectasis with otherwise no acute disease. Abdomen/Pelvis CT 02/29/20 00:00 IMPRESSION: 1. History of recent colonic resection. On the images from the study, it appears that some portion of the right colon was removed. The remaining colon is not dilated. There is mild thickening in the rectosigmoid colon. There is mild thickening outside the distal colon in the left pelvis. 2. Suspected distal small bowel obstruction. Transition zone possibly identify in right lower quadrant. Very minimal thickening of the small bowel. However this is more likely due to adhesions. 3. Suspected metastatic bone disease in lower thoracic spine and the lumbar spine and sacrum. 4. Right lower lobe nodule more likely metastatic. Mild atelectasis left lower lobe. Head CT 02/29/20 00:00 IMPRESSION: Peripherally enhancing mass with surrounding edema at the level of the left occipital lobe compatible with metastatic disease. Small Bowel X-Ray 03/01/20 00:00 IMPRESSION: Nonfilling of mid and distal loops of small bowel at five hours. The patient vomited large volume of contrast from the stomach. Delayed imaging to be acquired at two hours Renal Ultrasound 03/04/20 00:00 IMPRESSION: 1. Poor evaluation of the right kidney. 2. Left kidney looks unremarkable. 3. Bladder not seen, decompressed by a Ross catheter. KUB X-Ray 03/06/20 00:00 IMPRESSION: Postoperative ileus. Assessment & Plan - Diagnosis (1) VICENTE (acute kidney injury) Is this a current diagnosis for this admission?: Yes Plan: nonoliguric, looks to have recovered. Currently off fluids, on furosemide and flomax. Advised on needing to monitor urine output better. Need better Is&Os to make sure he is not retaining fluid. (2) Hypotension Qualifiers: Hypotension type: hypotension due to hypovolemia Qualified Code(s): I95.89 - Other hypotension; E86.1 - Hypovolemia Is this a current diagnosis for this admission?: Yes Plan: resolved (3) Appendicitis Qualifiers: Appendicitis type: acute appendicitis Acute appendicitis type: with localized peritonitis Appendicitis gangrene presence: unspecified whether gangrene present Appendicitis perforation presence: with perforation Appendicitis abscess presence: with abscess Qualified Code(s): K35.33 - Acute appendicitis with perforation and localized peritonitis, with abscess Is this a current diagnosis for this admission?: Yes Plan: antibiotics look to be properly dosed per kidney function (4) Cecostomy status Plan: per surgery (5) Ileus, postoperative Is this a current diagnosis for this admission?: Yes Plan: per surgery (6) Metastatic lung cancer (metastasis from lung to other site) Qualifiers: Laterality: unspecified laterality Qualified Code(s): C34.90 - Malignant neoplasm of unspecified part of unspecified bronchus or lung Is this a current diagnosis for this admission?: Yes Plan: per oncology (7) Peritonitis with abscess of intestine Is this a current diagnosis for this admission?: Yes Plan: antibiotics look to be properly dosed per kidney function (8) HAIDER (obstructive sleep apnea) Is this a current diagnosis for this admission?: Yes Plan: on bipap at night (9) Atrial fibrillation Qualifiers: Atrial fibrillation type: paroxysmal Qualified Code(s): I48.0 - Paroxysmal atrial fibrillation Is this a current diagnosis for this admission?: Yes Plan: was on cardiazem, management per cardiology (10) Elevated troponin Is this a current diagnosis for this admission?: Yes Plan: per cardiology (11) COPD exacerbation Is this a current diagnosis for this admission?: Yes Plan: stable
[2020-03-07] MEDS ORDERED: MAGNESIUM HYDROXIDE SUSP 30 ML UDCUP PO PRN (16:25)
[2020-03-07] MEDS ORDERED: OXYCODONE-ACETAMINOPHEN 5-325 MG TABLET PO PRN (16:25)
[2020-03-07] MEDS: TAMSULOSIN HCL 0.4 MG CAP.SR.24H PO SCH (17:14)
--- NOTE | 2020-03-07 17:28 | PDOC PROGRESS REPORT ---
Subjective Progress Note for:: 03/07/20 Subjective:: Mr. Adithya Diaz is 69 years old with past medical history of A. fib, CHF, hypertension, hyperlipidemia, COPD, sleep apnea, GERD, who was admitted on 02/22/2020 complaining of abdominal discomfort, nausea, vomiting, anorexia with fever and was found to have a perforated appendix, he is status post partial colectomy by surgery patient initially admitted to ICU and transferred to floor on 02/25/2020. Patient was seen on afternoon rounds. He is found sitting up to the recliner, comfortably, on supplemental oxygen via nasal cannula. Tells me that he is feeling well today; very happy with his current pain medication regimen. He reports very little breakthrough pain. He is concerned that opiates have caused increased constipation in the past. He is encouraged to drink plenty of water, take his daily Colace and MiraLAX, and to ambulate as much as possible. Still no bowel movement. Otherwise, he has no new questions or concerns today. He denies fever, chills, chest pain, palpitations, dyspnea, orthopnea, cough, nausea and vomiting. No concerns per nursing. Reason For Visit: RUPTURED APPENDIX,SEPSIS Physical Exam Vital Signs: Temp Pulse Resp BP Pulse Ox 97.4 F 59 L 20 136/61 H 99 03/07/20 16:00 03/07/20 16:00 03/07/20 16:00 03/07/20 16:00 03/07/20 16:00 Intake & Output 03/06/20 03/07/20 03/08/20 06:59 06:59 06:59 Intake Total 2478 2908 Output Total 897 251 0595 Balance 2203 2648 -1000 Weight 116.4 kg 122.7 kg General appearance: PRESENT: no acute distress, cooperative, morbidly obese, well-developed, well-nourished Head exam: PRESENT: atraumatic, normocephalic Eye exam: PRESENT: conjunctiva pink, EOMI, PERRLA. ABSENT: scleral icterus Mouth exam: PRESENT: moist, tongue midline Respiratory exam: PRESENT: clear to auscultation anshul, symmetrical, unlabored, other - Supplemental oxygen via nasal cannula. ABSENT: rales, rhonchi, wheezes Cardiovascular exam: PRESENT: RRR. ABSENT: diastolic murmur, rubs, systolic murmur Vascular exam: PRESENT: normal capillary refill GI/Abdominal exam: PRESENT: distended, firm, hypoactive bowel sounds, normal bowel sounds, tenderness. ABSENT: guarding, mass, organolmegaly, rebound Rectal exam: PRESENT: deferred Extremities exam: PRESENT: full ROM. ABSENT: calf tenderness, clubbing, pedal edema Musculoskeletal exam: PRESENT: ambulatory Neurological exam: PRESENT: alert, awake, oriented to person, oriented to place, oriented to time, oriented to situation, CN II-XII grossly intact. ABSENT: motor sensory deficit Psychiatric exam: PRESENT: appropriate affect, normal mood. ABSENT: homicidal ideation, suicidal ideation Skin exam: PRESENT: dry, intact, warm. ABSENT: cyanosis, rash Results Laboratory Results: 03/07/20 07:48 03/07/20 07:48 03/07/20 03/07/20 07:48 07:48 WBC 10.2 RBC 2.53 L Hgb 8.0 L Hct 24.0 L MCV 95 MCH 31.6 MCHC 33.3 RDW 14.6 H Plt Count 358 Sodium 133.5 L Potassium 3.7 Chloride 103 Carbon Dioxide 28 Anion Gap 3 L BUN 20 Creatinine 0.83 Est GFR ( Amer) > 60 Glucose 99 Calcium 8.4 02/21/20 02/21/20 02/21/20 16:15 19:29 19:29 CK-MB (CK-2) 1.34 Troponin I 1.170 0.926 NT-Pro-B Natriuret Pep 289 H 02/22/20 02/22/20 00:21 06:01 CK-MB (CK-2) 1.13 0.79 Troponin I 0.587 0.409 NT-Pro-B Natriuret Pep Impressions: Chest X-Ray 02/22/20 00:00 IMPRESSION: Minimal bibasilar atelectasis with otherwise no acute disease. Abdomen/Pelvis CT 02/29/20 00:00 IMPRESSION: 1. History of recent colonic resection. On the images from the study, it appears that some portion of the right colon was removed. The remaining colon is not dilated. There is mild thickening in the rectosigmoid colon. There is mild thickening outside the distal colon in the left pelvis. 2. Suspected distal small bowel obstruction. Transition zone possibly identify in right lower quadrant. Very minimal thickening of the small bowel. However this is more likely due to adhesions. 3. Suspected metastatic bone disease in lower thoracic spine and the lumbar spine and sacrum. 4. Right lower lobe nodule more likely metastatic. Mild atelectasis left lower lobe. Head CT 02/29/20 00:00 IMPRESSION: Peripherally enhancing mass with surrounding edema at the level of the left occipital lobe compatible with metastatic disease. Small Bowel X-Ray 03/01/20 00:00 IMPRESSION: Nonfilling of mid and distal loops of small bowel at five hours. The patient vomited large volume of contrast from the stomach. Delayed imaging to be acquired at two hours Renal Ultrasound 03/04/20 00:00 IMPRESSION: 1. Poor evaluation of the right kidney. 2. Left kidney looks unremarkable. 3. Bladder not seen, decompressed by a Ross catheter. KUB X-Ray 03/06/20 00:00 IMPRESSION: Postoperative ileus. Assessment and Plan - Diagnosis (1) VICENTE (acute kidney injury) Is this a current diagnosis for this admission?: Yes Plan: Resolved Increased urine output Creatinine 2.93-> 1.71-> 0.90 This was likely vancomycin induced placated by postsurgical hypotension. Vancomycin trough 26.5 down from 39.6. FeNa 0.15%. Patient was also on Lasix, hence FeNA may not be reliable. Will get FEUr Renal ultrasound had poor evaluation of the right kidney, unremarkable left kidney. Discontinued vancomycin. Nephrology consulted. Appreciate their evaluation/recommendations. Strict and outs. Monitor volume status and electrolytes. Replace electrolytes as needed. Follow-up chemistry. (2) Ileus, postoperative Is this a current diagnosis for this admission?: Yes Plan: POD #5 status post laparotomy and revision of ileocolonic anastomosis and right hemicolectomy. Unfortunately patient is still not passing stool and has persistent abdominal distention. He is passing flatus. Surgery following. NG tube is out. Encourage ambulation. Twice daily Colace, MiraLAX daily, milk of mag twice daily. (3) Hypotension Qualifiers: Hypotension type: hypotension due to hypovolemia Qualified Code(s): I95.89 - Other hypotension; E86.1 - Hypovolemia Is this a current diagnosis for this admission?: Yes Plan: Resolved. Patient has low p.o. intake and excessive gastric drainage with worsening leukocytosis however afebrile. Is already on broad-spectrum IV antibiotics. Monitor vitals volume status. Hold antihypertensives if MAP <65 or symptomatic. Continue fluid resuscitation guided by volume status. Defer medication regimen to cardiology; Dr. Sen is consulted. Appreciate his assistance. (4) Status post colon resection Is this a current diagnosis for this admission?: Yes Plan: POD 5 status post 2nd laparotomy and revision of ileocolonic anastomosis and right hemicolectomy. POD 14 status post ileocolectomy, with intermittent ileus. Secondary to perforated appendiceal metastasis from lung cancer. Diet per surgery. Encourage ambulation. Primary management per surgery; recommendations noted. (5) Lung cancer Qualifiers: Laterality: unspecified laterality Lung location: unspecified part of lung Qualified Code(s): C34.90 - Malignant neoplasm of unspecified part of unspecified bronchus or lung Is this a current diagnosis for this admission?: Yes Plan: Metastatic stage IV lung cancer. Perforated appendix turned out to be lung metastasis to abdomen. CT head is also positive for metastatic lesion. Oncology consult. Chemotherapy is planned once patient is discharged from the hospital. Possible radiation treatments prior to d/c (6) Peritonitis with abscess of intestine Is this a current diagnosis for this admission?: Yes Plan: Secondary to perforated appendiceal metastasis. Abdominal fluid growing Enterobacter, Streptococcus, Peptostreptococcus and Bacteroides. Afebrile. Leukocytosis is improved today; WBC 20-> 14-> 30-> 24-> 18-> 13 Day #6 IV vancomycin; placed on hold r/t ATN/Vanc toxicity. Oral Zyvox discontinued on day #3 per infectious disease recommendations. Start ertapenem. Day #13 IV aztreonam. Day #13 IV metronidazole. Day #13 /14 IV antibiotics. Infectious disease specialist consulted. Recommendation is IV antibiotics for 1 4 days post source control. Due to hold on vancomycin, total course of antibiotics may be extended. Awaiting Dr. Novoa's formal recommendations. (7) Obesity hypoventilation syndrome Is this a current diagnosis for this admission?: Yes Plan: Nocturnal BiPAP. Supplemental oxygen. (8) COPD exacerbation Is this a current diagnosis for this admission?: Yes Plan: Does not seem to be acutely exacerbated. History of COPD oxygen dependent on 2 L nasal cannula. Resume home meds. PRN duo nebs. PRN BiPAP. (9) Atrial fibrillation Qualifiers: Atrial fibrillation type: paroxysmal Qualified Code(s): I48.0 - Paroxysmal atrial fibrillation Is this a current diagnosis for this admission?: Yes Plan: Rate controlled. Status post ablation. On beta-blockers and Cardizem. Not anticoagulated, due to recent abdominal surgery. Home medication is Eliquis 5 mg p.o. twice daily. Continue Cardizem. Continue beta-blockers. Resume Eliquis once appropriate. Cardiology consulted recommendations noted. (10) Appendicitis Qualifiers: Appendicitis type: acute appendicitis Acute appendicitis type: with localized peritonitis Appendicitis gangrene presence: unspecified whether gangrene present Appendicitis perforation presence: with perforation Appendicitis abscess presence: with abscess Qualified Code(s): K35.33 - Acute appendicitis with perforation and localized peritonitis, with abscess Is this a current diagnosis for this admission?: Yes Plan: As above. Initially thought to be deep and started to return at to be metastatic lung cancer as per pathology report. Complicated perforated appendix status post exploratory laparotomy and hemicolectomy. (11) HAIDER (obstructive sleep apnea) Is this a current diagnosis for this admission?: Yes Plan: Nocturnal BiPAP. Supplemental oxygen. (12) Metastasis Qualifiers: Area of secondary neoplastic involvement: bone Qualified Code(s): C79.51 - Secondary malignant neoplasm of bone Is this a current diagnosis for this admission?: Yes Plan: As above. (13) Lung nodules Is this a current diagnosis for this admission?: Yes Plan: Oncology on board. Outpatient follow-up is recommended. (14) Elevated troponin Is this a current diagnosis for this admission?: Yes Plan: Trending down. Chest pain free. Although EKG did not demonstrate acute ischemic changes, his troponin was elevated. Therefore cardiology was consulted. Discussed this case with Dr. Vargas (cardiology) who feels that the elevated troponin is related with his sepsis and not due to an acute cardiac event. Cardiology is consulted; appreciate Dr. Sen's assistance. - Time Time Spent with patient: 25-34 minutes Medications reviewed and adjusted accordingly: Yes Anticipated discharge: Home with Homehealth
--- NOTE | 2020-03-07 18:26 | Progress Note ---
Provider Note Provider Note: [facility] Telephone Advice Consultation Chart reviewed. Patient is a 69-year-old man with CHF, COPD, HAIDER, hypertension, atrial fibrillation s/p ablation and pulmonary nodules who was admitted on 02/20 due to fever, chills, abdominal pain x 4 days. In the ED, he had a CT scan of abdomen and pelvis that demonstrated acute appendicitis with significant pericecal inflammation, also pulmonary nodules and bone lesions. He was evaluated by surgery, cleared by cardiology and was taken to the OR for partial right colon resection with ileo right colon anastomosis. The surgery was complex as it started as laparoscopic and was transitioned to open for better approach as there was an abscess and significant amount of pus. Peritoneal fluid cultures were positive for colonic haylee including Enterobacter cloacae, Bacteroides spp, Streptococcus salivarius, Peptostreptococcus. Blood cultures from 02/20 and 02/21 are negative. Patient has a remote history of penicillin allergy (anaphylaxis) for which levofloxacin was started, this was transitioned to meropenem to avoid further cardiac complications. There was hypotension but probably not related to meropenem. A decision was made by primary team to start patient on aztreonam and metronidazole. He was briefly in the ICU, he extubated himself, he was transferred to floor. Vancomycin was added for Gram positive coverage. He had an VICENTE due to vancomycin, although this has resolved by now. He is currently on vancomycin, aztreonam and metronidazole. He has been doing well, overall improving but has not had a BM yet. He did have a second visit to the OR on 03/02 for exploratory laparotomy and lysis of adhesions with revision of the ileocolonic anastomosis and completion of right hemicolectomy. Antibiotic therapy was changed to linezolid. ID reconsulted for guidance in terms of antibiotic therapy and duration. PMH: CHF HAIDER HTN A fib s/p ablation COPD Pulmonary nodules Allergies Penicillins Allergy (Severe, Verified 06/16/13 08:53) Anaphylaxis Tetanus Vaccines and Toxoid [Tetanus] Allergy (Severe, Verified 06/16/13 08:53) Anaphylaxis Medications: Carvedilol [Coreg 12.5 mg Tablet] 12.5 mg PO Q12 10/30/14 Aspirin [Ecotrin 81 mg EC Tablet] 81 mg PO DAILY 02/21/20 Atorvastatin Calcium [Lipitor 20 mg Tablet] 20 mg PO QHS 02/21/20 Cyanocobalamin (Vitamin B-12) [Vitamin B-12 1000 Mcg Tablet] 2,000 mcg PO BID 02/21/20 Diclofenac Sodium 2 gm TOP QIDP PRN 02/21/20 Docusate Sodium [Colace 100 mg Capsule] 100 mg PO DAILY 02/21/20 Flecainide Acetate [Tambocor 100 mg Tablet] 100 mg PO DAILY 02/21/20 Hydrocodone/Acetaminophen [[place] 5-325 mg Tablet] 1 tab PO Q6HP PRN MDD filled 02/16 for 5 day supply 02/21/20 [place]-3 Fatty Acids/Fish Oil [[place] 3 Fish Oil Softgel] 1 each PO BID 02/21/20 Tizanidine HCl 4 mg PO Q8HP PRN 02/21/20 Vital Signs: Temp Pulse Resp BP Pulse Ox 97.4 F 59 L 20 136/61 H 99 03/07/20 16:00 03/07/20 16:00 03/07/20 16:00 03/07/20 16:00 03/07/20 16:00 Intake & Output 03/06/20 03/07/20 03/08/20 06:59 06:59 06:59 Intake Total 2478 2908 Output Total 480 743 0429 Balance 2203 2648 -1000 Weight 116.4 kg 122.7 kg Weight/Height Weight 122.7 kg Height 5 ft 7 in Laboratories: 03/07/20 07:48 03/07/20 07:48 MCV 95 fl (80-97) 03/07/20 07:48 MCH 31.6 pg (27.0-33.4) 03/07/20 07:48 MCHC 33.3 g/dL (32.0-36.0) 03/07/20 07:48 RDW 14.6 % (11.5-14.0) H 03/07/20 07:48 Seg Neutrophils % 85.6 % (42-78) H 03/05/20 05:51 Retic Count (auto) 1.99 % (0.66-2.85) 02/22/20 06:01 Carbonic Acid 1.08 mmol/L (1.05-1.35) 02/22/20 08:35 HCO3/H2CO3 Ratio 22:1 02/22/20 08:35 ABG pH 7.45 (7.35-7.45) 02/22/20 08:35 ABG pCO2 35.8 mmHg (35-45) 02/22/20 08:35 ABG pO2 71.3 mmHg (80-100) L 02/22/20 08:35 ABG HCO3 24.1 mmol/L (20-24) H 02/22/20 08:35 ABG O2 Saturation 95.1 % (94-98) 02/22/20 08:35 ABG Base Excess 0.5 mmol/L 02/22/20 08:35 VBG pH 7.48 (7.30-7.42) H 02/21/20 12:39 VBG pCO2 29.6 mmHg (35-63) L 02/21/20 12:39 VBG HCO3 21.7 mmol/L (20-32) 02/21/20 12:39 VBG Base Excess -0.8 mmol/L 02/21/20 12:39 FiO2 30% 02/22/20 08:35 Chloride 103 mmol/L (98-107) 03/07/20 07:48 Carbon Dioxide 28 mmol/L (22-30) 03/07/20 07:48 Anion Gap 3 (5-19) L 03/07/20 07:48 Est GFR ( Amer) > 60 (>60) 03/07/20 07:48 Glucose 99 mg/dL (75-110) 03/07/20 07:48 Lactic Acid 1.0 mmol/L (0.7-2.1) 02/22/20 08:55 Calcium 8.4 mg/dL (8.4-10.2) 03/07/20 07:48 Phosphorus 4.4 mg/dL (2.5-4.5) 03/04/20 06:05 Magnesium 1.9 mg/dL (1.6-2.3) 03/04/20 06:05 Iron 13.5 ug/dL (49-181) L 02/22/20 06:01 TIBC 229 ug/dL (250-450) L 02/22/20 06:01 % Saturation 6 % 02/22/20 06:01 Transferrin 154.21 mg/dL (206.00-381.00) L 02/22/20 06:01 Ferritin 810.00 ng/mL (17.9-464.0) H 02/22/20 06:01 Total Bilirubin 0.6 mg/dL (0.2-1.3) 03/05/20 05:51 AST 43 U/L (17-59) 03/05/20 05:51 Alkaline Phosphatase 161 U/L (38-126) H 03/05/20 05:51 Ammonia < 8.7 umol/L (9-33) L 02/22/20 08:55 Total Protein 5.5 g/dL (6.3-8.2) L 03/05/20 05:51 Albumin 2.7 g/dL (3.5-5.0) L 03/05/20 05:51 Prostate Specific Ag 4.840 ng/mL (<4.00) H 02/22/20 08:55 Vitamin B12 975.0 pg/mL (239-931) H 02/22/20 06:01 Folate 13.30 ng/mL (>2.76) 02/22/20 06:01 TSH 1.32 uIU/mL (0.47-4.68) 02/22/20 06:01 Urine Color CELE[place] 03/04/20 12:00 Urine Appearance CLOUDY 03/04/20 12:00 Urine pH 5.0 (5.0-9.0) 03/04/20 12:00 Ur Specific [place] 1.021 03/04/20 12:00 Urine Protein 30 mg/dL (NEGATIVE) H 03/04/20 12:00 Urine Glucose (UA) NEGATIVE mg/dL (NEGATIVE) 03/04/20 12:00 Urine Ketones NEGATIVE mg/dL (NEGATIVE) 03/04/20 12:00 Urine Blood LARGE (NEGATIVE) H 03/04/20 12:00 Urine Nitrite NEGATIVE (NEGATIVE) 02/21/20 14:40 Ur Leukocyte Esterase NEGATIVE (NEGATIVE) 02/21/20 14:40 Urine WBC (Auto) 1 /HPF 02/21/20 14:40 Urine RBC (Auto) 79 /HPF 03/04/20 12:00 02/21/20 02/21/20 02/21/20 16:15 19:29 19:29 CK-MB (CK-2) 1.34 Troponin I 1.170 0.926 NT-Pro-B Natriuret Pep 289 H 02/22/20 02/22/20 00:21 06:01 CK-MB (CK-2) 1.13 0.79 Troponin I 0.587 0.409 NT-Pro-B Natriuret Pep Microbiology: Blood cultures: 02/20 NGTD 02/21 NGTD Peritoneal fluid cultures: 02/20 Enterobacter cloacae, Bacteroides, Peptostreptococcus, Streptococcus salivarius Radiology: Chest X-Ray 02/22/20 00:00 IMPRESSION: Minimal bibasilar atelectasis with otherwise no acute disease. Abdomen/Pelvis CT 02/29/20 00:00 IMPRESSION: 1. History of recent colonic resection. On the images from the study, it appears that some portion of the right colon was removed. The remaining colon is not dilated. There is mild thickening in the rectosigmoid colon. There is mild thickening outside the distal colon in the left pelvis. 2. Suspected distal small bowel obstruction. Transition zone possibly identify in right lower quadrant. Very minimal thickening of the small bowel. However this is more likely due to adhesions. 3. Suspected metastatic bone disease in lower thoracic spine and the lumbar spine and sacrum. 4. Right lower lobe nodule more likely metastatic. Mild atelectasis left lower lobe. Head CT 02/29/20 00:00 IMPRESSION: Peripherally enhancing mass with surrounding edema at the level of the left occipital lobe compatible with metastatic disease. Small Bowel X-Ray 03/01/20 00:00 IMPRESSION: Nonfilling of mid and distal loops of small bowel at five hours. The patient vomited large volume of contrast from the stomach. Delayed imaging to be acquired at two hours Renal Ultrasound 03/04/20 00:00 IMPRESSION: 1. Poor evaluation of the right kidney. 2. Left kidney looks unremarkable. 3. Bladder not seen, decompressed by a Ross catheter. KUB X-Ray 03/06/20 00:00 IMPRESSION: Postoperative ileus. Assessment and Recommendations: Patient with acute appendicitis and perforation complicated with peritonitis due to colonic haylee including Enterobacter cloacae, Bacteroides, Peptostreptococcus and Streptococcus salivarius. He has had surgery x 2 and has been clinically improving. He did have an atrial fibrillation decompensation with RVR which was controlled. Leukocytosis has resolved. There has been good source control. Will recommend to change therapy to ertapenem to simplify the regimen. This will cover all the organisms isolated. A 2 week course from last surgery would be recommended. Can do ertapenem while inpatient and if ready to be discharged, can transition to Bactrim DS BID + metronidazole 500 mg po bid to complete 2 weeks. EOT expected to be 03/16/2020. Please call if questions. Catalina Novoa MD [facility] [phone]
[2020-03-07] MEDS: ATORVASTATIN CALCIUM 20 MG TABLET NG SCH (21:36)
[2020-03-07] MEDS: MONTELUKAST SODIUM 10 MG TABLET NG SCH (21:36)
[2020-03-07] MEDS: ERTAPENEM SODIUM 1 GM in NORMAL SALINE 50 ML IV SCH (21:37)
[2020-03-08] MEDS: OXYCODONE-ACETAMINOPHEN 5-325 MG TABLET PO PRN (01:50)
[2020-03-08] MEDS: HEPARIN SOD (PORCINE) 5,000 UNIT/ML 1 ML VIAL SUBCUT SCH ×3 (05:11→21:42)
[2020-03-08] MEDS: DILTIAZEM HCL 30 MG TABLET NG SCH ×3 (05:13→21:41)
[2020-03-08] MEDS ORDERED: LORAZEPAM 1 MG TABLET PO PRN (07:57)
--- NOTE | 2020-03-08 08:02 | PDOC PROGRESS REPORT ---
Subjective Progress Note for:: 03/08/20 Subjective:: Patient still complaining of abdominal pain such that he is not able to sleep well or walk. He is able to transfer to chair. His stomach is "rumbling" and he is tolerating clear liquids without nausea. However, no BMs. He is taking OxyContin BID with PRN percocet, but states that the percocet last night did not help. Radiation therapy still has not been started. ROS: No dyspnea. Some urinary discomfort, but Ross has been removed. Reason For Visit: RUPTURED APPENDIX,SEPSIS Physical Exam Vital Signs: Temp Pulse Resp BP Pulse Ox 97.5 F 73 11 L 143/54 H 99 03/08/20 03:28 03/08/20 03:28 03/08/20 04:09 03/08/20 03:28 03/08/20 05:22 Intake & Output 03/07/20 03/08/20 03/09/20 06:59 06:59 06:59 Intake Total 2908 532 Output Total 260 2300 Balance 2648 -1768 Weight 122.7 kg 120.9 kg General appearance: PRESENT: no acute distress, obese Head exam: PRESENT: normocephalic Eye exam: PRESENT: EOMI Respiratory exam: PRESENT: unlabored GI/Abdominal exam: PRESENT: distended, firm Extremities exam: ABSENT: pedal edema Neurological exam: PRESENT: alert, awake Psychiatric exam: PRESENT: appropriate affect Skin exam: PRESENT: normal color Results Laboratory Results: 03/07/20 07:48 03/07/20 07:48 03/07/20 03/07/20 07:48 07:48 WBC 10.2 RBC 2.53 L Hgb 8.0 L Hct 24.0 L MCV 95 MCH 31.6 MCHC 33.3 RDW 14.6 H Plt Count 358 Sodium 133.5 L Potassium 3.7 Chloride 103 Carbon Dioxide 28 Anion Gap 3 L BUN 20 Creatinine 0.83 Est GFR ( Amer) > 60 Glucose 99 Calcium 8.4 02/21/20 02/21/20 02/21/20 16:15 19:29 19:29 CK-MB (CK-2) 1.34 Troponin I 1.170 0.926 NT-Pro-B Natriuret Pep 289 H 02/22/20 02/22/20 00:21 06:01 CK-MB (CK-2) 1.13 0.79 Troponin I 0.587 0.409 NT-Pro-B Natriuret Pep Impressions: Chest X-Ray 02/22/20 00:00 IMPRESSION: Minimal bibasilar atelectasis with otherwise no acute disease. Abdomen/Pelvis CT 02/29/20 00:00 IMPRESSION: 1. History of recent colonic resection. On the images from the study, it appears that some portion of the right colon was removed. The remaining colon is not dilated. There is mild thickening in the rectosigmoid colon. There is mild thickening outside the distal colon in the left pelvis. 2. Suspected distal small bowel obstruction. Transition zone possibly identify in right lower quadrant. Very minimal thickening of the small bowel. However this is more likely due to adhesions. 3. Suspected metastatic bone disease in lower thoracic spine and the lumbar spine and sacrum. 4. Right lower lobe nodule more likely metastatic. Mild atelectasis left lower lobe. Head CT 02/29/20 00:00 IMPRESSION: Peripherally enhancing mass with surrounding edema at the level of the left occipital lobe compatible with metastatic disease. Small Bowel X-Ray 03/01/20 00:00 IMPRESSION: Nonfilling of mid and distal loops of small bowel at five hours. The patient vomited large volume of contrast from the stomach. Delayed imaging to be acquired at two hours Renal Ultrasound 03/04/20 00:00 IMPRESSION: 1. Poor evaluation of the right kidney. 2. Left kidney looks unremarkable. 3. Bladder not seen, decompressed by a Ross catheter. KUB X-Ray 03/06/20 00:00 IMPRESSION: Postoperative ileus. Assessment & Plan - Diagnosis (1) Appendicitis Qualifiers: Appendicitis type: acute appendicitis Acute appendicitis type: with localized peritonitis Appendicitis gangrene presence: unspecified whether gangrene present Appendicitis perforation presence: with perforation Appendicitis abscess presence: with abscess Qualified Code(s): K35.33 - Acute appendicitis with perforation and localized peritonitis, with abscess Is this a current diagnosis for this admission?: Yes (2) Lung nodules Is this a current diagnosis for this admission?: Yes (3) Lung cancer Qualifiers: Laterality: right Lung location: lower lobe of lung Qualified Code(s): C34.31 - Malignant neoplasm of lower lobe, right bronchus or lung Is this a current diagnosis for this admission?: Yes Plan: I will try again to get radiation started on his brain. I was told that because of "staffing issues" this could not be started earlier this week. Await return of bowel function. Please call over the weekend if needed. - Time Time Spent with patient: 15-24 minutes
[2020-03-08] MEDS: IPRATROPIUM BROMIDE 0.02% NEB 0.5 MG/2.5 ML AMPUL NEB SCH ×3 (08:32→21:18)
[2020-03-08] MEDS: DOCUSATE SODIUM 100 MG CAPSULE PO SCH ×2 (09:20→17:50)
[2020-03-08] MEDS: CARVEDILOL 12.5 MG TABLET NG SCH ×2 (09:23→21:41)
[2020-03-08] MEDS: FUROSEMIDE 20 MG TABLET PO SCH ×2 (09:24→17:50)
[2020-03-08] MEDS: OXYCODONE HCL SR 10 MG TABLET PO SCH ×2 (09:24→21:41)
[2020-03-08] MEDS: LISINOPRIL 10 MG TABLET NG SCH (09:25)
[2020-03-08] MEDS: POLYETHYLENE GLYCOL 3350 POWDER 17 GM/1 PACKET NG SCH (09:26)
[2020-03-08] MEDS: FAMOTIDINE INJ/PF 20 MG/2 ML SDV IV SCH ×2 (09:28→21:41)
--- NOTE | 2020-03-08 09:59 | PDOC PROGRESS REPORT ---
Subjective Reason For Visit: RUPTURED APPENDIX,SEPSIS Physical Exam Vital Signs: Temp Pulse Resp BP Pulse Ox 97.5 F 71 18 143/54 H 98 03/08/20 03:28 03/08/20 08:32 03/08/20 08:32 03/08/20 03:28 03/08/20 08:32 Intake & Output 03/07/20 03/08/20 03/09/20 06:59 06:59 06:59 Intake Total 2908 532 Output Total 260 2300 Balance 2648 -1768 Weight 122.7 kg 120.9 kg Results Laboratory Results: 03/07/20 07:48 03/07/20 07:48 02/21/20 02/21/20 02/21/20 16:15 19:29 19:29 CK-MB (CK-2) 1.34 Troponin I 1.170 0.926 NT-Pro-B Natriuret Pep 289 H 02/22/20 02/22/20 00:21 06:01 CK-MB (CK-2) 1.13 0.79 Troponin I 0.587 0.409 NT-Pro-B Natriuret Pep Impressions: Chest X-Ray 02/22/20 00:00 IMPRESSION: Minimal bibasilar atelectasis with otherwise no acute disease. Abdomen/Pelvis CT 02/29/20 00:00 IMPRESSION: 1. History of recent colonic resection. On the images from the study, it appears that some portion of the right colon was removed. The remaining colon is not dilated. There is mild thickening in the rectosigmoid colon. There is mild thickening outside the distal colon in the left pelvis. 2. Suspected distal small bowel obstruction. Transition zone possibly identify in right lower quadrant. Very minimal thickening of the small bowel. However this is more likely due to adhesions. 3. Suspected metastatic bone disease in lower thoracic spine and the lumbar spine and sacrum. 4. Right lower lobe nodule more likely metastatic. Mild atelectasis left lower lobe. Head CT 02/29/20 00:00 IMPRESSION: Peripherally enhancing mass with surrounding edema at the level of the left occipital lobe compatible with metastatic disease. Small Bowel X-Ray 03/01/20 00:00 IMPRESSION: Nonfilling of mid and distal loops of small bowel at five hours. The patient vomited large volume of contrast from the stomach. Delayed imaging to be acquired at two hours Renal Ultrasound 03/04/20 00:00 IMPRESSION: 1. Poor evaluation of the right kidney. 2. Left kidney looks unremarkable. 3. Bladder not seen, decompressed by a Ross catheter. KUB X-Ray 03/06/20 00:00 IMPRESSION: Postoperative ileus. Assessment & Plan - Diagnosis (1) Metastatic lung cancer (metastasis from lung to other site) Qualifiers: Laterality: unspecified laterality Qualified Code(s): C34.90 - Malignant neoplasm of unspecified part of unspecified bronchus or lung Is this a current diagnosis for this admission?: Yes - Plan Summary Plan Summary: This is a 69-year-old male status post re-exploratory laparotomy with right hem icolectomy (for anastomotic leak) due to metastatic lung cancer. The patient reports midline abdominal pain, that is relieved with medication. He denies any nausea or vomiting. He reports continuing to pass small amounts of flatus. No bowel movement. Will advance to full liquids. I have encouraged ambulation again today. Aggressive pulmonary toilet.
[2020-03-08] MEDS ORDERED: ERTAPENEM SODIUM 0.5 GM in NORMAL SALINE 50 ML IV SCH (10:00)
[2020-03-08] MEDS: LIDOCAINE 5% (700 MG) TRANSDERMAL ADH..PATCH TP SCH (11:40)
[2020-03-08] MEDS: FLUTICASONE/UMECLIDIN/VILANTER 100-62.5-25 MCG/DOSE IH SCH (11:42)
[2020-03-08] MEDS: FLECAINIDE ACETATE 100 MG TABLET NG SCH (11:43)
[2020-03-08] MEDS: ASPIRIN 81 MG TABLET, CHEWABLE NG SCH (11:43)
--- NOTE | 2020-03-08 13:23 | RADIOLOGY REPORT (SQ) ---
EXAM DESCRIPTION: KUB/ABDOMEN (SINGLE VIEW) IMAGES COMPLETED DATE/TIME: 03/08/2020 1:03 pm REASON FOR STUDY: distention COMPARISON: 03/06/2020 NUMBER OF VIEWS: One view. TECHNIQUE: Supine radiographic image of the abdomen acquired. LIMITATIONS: None. FINDINGS: BOWEL GAS PATTERN: Gas-filled loops of predominantly large bowel. No bowel distention. CALCIFICATIONS: No suspicious calcifications. SOFT TISSUES: No gross mass or suggestion of organomegaly. HARDWARE: None in the abdomen. BONES: No acute fracture. No worrisome bone lesions. OTHER: No other significant finding. IMPRESSION: Bowel gas. No obstruction. TECHNICAL DOCUMENTATION: JOB ID: [id number] 2010 [employer]- All Rights Reserved Reading location - IP/workstation name: [email or web address]
[2020-03-08] MEDS ORDERED: NORMAL SALINE 1000 ML 1,000 ML IV PRN (15:18)
--- NOTE | 2020-03-08 15:24 | PDOC PROGRESS REPORT ---
Subjective Progress Note for:: 03/08/20 Subjective:: Patient was seen sitting up in his chair at the time of examination. He still has not had a bowel movement at this time. He is starting to go back to having bloating and nausea. He himself has cut back on his fluid intake. Urine output was 2,300mL yesterday. He claims that possible more because he was not always able to collect the urine in his urinal. He did just get fitted for a mask for his radiation therapy. Reason For Visit: RUPTURED APPENDIX,SEPSIS Physical Exam Vital Signs: Temp Pulse Resp BP Pulse Ox 97.5 F 71 18 143/54 H 98 03/08/20 03:28 03/08/20 08:32 03/08/20 08:32 03/08/20 03:28 03/08/20 08:32 Intake & Output 03/07/20 03/08/20 03/09/20 06:59 06:59 06:59 Intake Total 2908 532 Output Total 260 2300 Balance 2648 -1768 Weight 122.7 kg 120.9 kg 120.9 kg General appearance: PRESENT: no acute distress, well-developed, well-nourished Mouth exam: PRESENT: moist, neck supple Neck exam: ABSENT: JVD, tracheal deviation Respiratory exam: PRESENT: clear to auscultation anshul. ABSENT: crackles, rales, wheezes Cardiovascular exam: PRESENT: RRR, +S1, +S2 GI/Abdominal exam: PRESENT: firm, tenderness. ABSENT: soft Extremities exam: PRESENT: pedal edema, +1 edema. ABSENT: tenderness, +2 edema Musculoskeletal exam: PRESENT: normal inspection. ABSENT: tenderness Neurological exam: PRESENT: alert, awake, oriented to person, oriented to place, oriented to time, oriented to situation Skin exam: PRESENT: dry, intact, warm. ABSENT: cyanosis Results Laboratory Results: 03/07/20 07:48 03/07/20 07:48 02/21/20 02/21/20 02/21/20 16:15 19:29 19:29 CK-MB (CK-2) 1.34 Troponin I 1.170 0.926 NT-Pro-B Natriuret Pep 289 H 02/22/20 02/22/20 00:21 06:01 CK-MB (CK-2) 1.13 0.79 Troponin I 0.587 0.409 NT-Pro-B Natriuret Pep Impressions: Chest X-Ray 02/22/20 00:00 IMPRESSION: Minimal bibasilar atelectasis with otherwise no acute disease. Abdomen/Pelvis CT 02/29/20 00:00 IMPRESSION: 1. History of recent colonic resection. On the images from the study, it appears that some portion of the right colon was removed. The remaining colon is not dilated. There is mild thickening in the rectosigmoid colon. There is mild thickening outside the distal colon in the left pelvis. 2. Suspected distal small bowel obstruction. Transition zone possibly identify in right lower quadrant. Very minimal thickening of the small bowel. However this is more likely due to adhesions. 3. Suspected metastatic bone disease in lower thoracic spine and the lumbar spine and sacrum. 4. Right lower lobe nodule more likely metastatic. Mild atelectasis left lower lobe. Head CT 02/29/20 00:00 IMPRESSION: Peripherally enhancing mass with surrounding edema at the level of the left occipital lobe compatible with metastatic disease. Small Bowel X-Ray 03/01/20 00:00 IMPRESSION: Nonfilling of mid and distal loops of small bowel at five hours. The patient vomited large volume of contrast from the stomach. Delayed imaging to be acquired at two hours Renal Ultrasound 03/04/20 00:00 IMPRESSION: 1. Poor evaluation of the right kidney. 2. Left kidney looks unremarkable. 3. Bladder not seen, decompressed by a Ross catheter. KUB X-Ray 03/08/20 00:00 IMPRESSION: Bowel gas. No obstruction. Assessment & Plan - Diagnosis (1) VICENTE (acute kidney injury) Is this a current diagnosis for this admission?: Yes Plan: resolved, will start normal saline at 40mL an hour to help keep him hydrated to prevent an VICENTE. Continue on furosemide to help keep the urination up. Depending on his PO intake and urine output the normal saline may need to be increased. (2) Hypotension Qualifiers: Hypotension type: hypotension due to hypovolemia Qualified Code(s): I95.89 - Other hypotension; E86.1 - Hypovolemia Is this a current diagnosis for this admission?: Yes Plan: resolved (3) Appendicitis Qualifiers: Appendicitis type: acute appendicitis Acute appendicitis type: with localized peritonitis Appendicitis gangrene presence: unspecified whether gangrene present Appendicitis perforation presence: with perforation Appendicitis abscess presence: with abscess Qualified Code(s): K35.33 - Acute appendicitis with perforation and localized peritonitis, with abscess Is this a current diagnosis for this admission?: Yes Plan: antibiotics look to be properly dosed per kidney function (4) Cecostomy status Plan: per surgery (5) Ileus, postoperative Is this a current diagnosis for this admission?: Yes Plan: per surgery (6) Metastatic lung cancer (metastasis from lung to other site) Qualifiers: Laterality: unspecified laterality Qualified Code(s): C34.90 - Malignant neoplasm of unspecified part of unspecified bronchus or lung Is this a current diagnosis for this admission?: Yes Plan: per oncology (7) Peritonitis with abscess of intestine Is this a current diagnosis for this admission?: Yes Plan: antibiotics look to be properly dosed per kidney function (8) HAIDER (obstructive sleep apnea) Is this a current diagnosis for this admission?: Yes Plan: on bipap at night (9) Atrial fibrillation Qualifiers: Atrial fibrillation type: paroxysmal Qualified Code(s): I48.0 - Paroxysmal atrial fibrillation Is this a current diagnosis for this admission?: Yes Plan: was on cardiazem, management per cardiology (10) Elevated troponin Is this a current diagnosis for this admission?: Yes Plan: per cardiology (11) COPD exacerbation Is this a current diagnosis for this admission?: Yes Plan: stable
--- NOTE | 2020-03-08 16:44 | PDOC PROGRESS REPORT ---
Subjective Progress Note for:: 03/08/20 Subjective:: Mr. Adithya Diaz is 69 years old with past medical history of A. fib, CHF, hypertension, hyperlipidemia, COPD, sleep apnea, GERD, who was admitted on 02/22/2020 complaining of abdominal discomfort, nausea, vomiting, anorexia with fever and was found to have a perforated appendix, he is status post partial colectomy by surgery patient initially admitted to ICU and transferred to floor on 02/25/2020. Patient was seen on morning rounds. He is found sitting up to the recliner, comfortably, on room air. Still no bowel movement; increased distention/discomfort and decreased appetite. Reports he is passing flatus. Otherwise, he denies fever, chills, chest pain, palpitations, dyspnea, orthopnea, cough, nausea and vomiting. He has no other questions or concerns. No concerns per nursing. Reason For Visit: RUPTURED APPENDIX,SEPSIS Physical Exam Vital Signs: Temp Pulse Resp BP Pulse Ox 97.5 F 71 18 143/54 H 98 03/08/20 03:28 03/08/20 08:32 03/08/20 08:32 03/08/20 03:28 03/08/20 08:32 Intake & Output 03/07/20 03/08/20 03/09/20 06:59 06:59 06:59 Intake Total 2908 532 Output Total 260 2300 Balance 2648 -1768 Weight 122.7 kg 120.9 kg 120.9 kg General appearance: PRESENT: no acute distress, cooperative, morbidly obese, well-developed, well-nourished Head exam: PRESENT: atraumatic, normocephalic Eye exam: PRESENT: conjunctiva pink, EOMI, PERRLA. ABSENT: scleral icterus Mouth exam: PRESENT: moist, tongue midline Respiratory exam: PRESENT: clear to auscultation anshul, symmetrical, unlabored, other - room air. ABSENT: rales, rhonchi, wheezes Cardiovascular exam: PRESENT: RRR. ABSENT: diastolic murmur, rubs, systolic murmur GI/Abdominal exam: PRESENT: distended, firm, hypoactive bowel sounds, tenderness. ABSENT: guarding, mass, organolmegaly, rebound Rectal exam: PRESENT: deferred Gentrourinary exam: ABSENT: indwelling catheter Extremities exam: PRESENT: full ROM. ABSENT: calf tenderness, clubbing, pedal edema Neurological exam: PRESENT: alert, awake, oriented to person, oriented to place, oriented to time, oriented to situation, CN II-XII grossly intact. ABSENT: motor sensory deficit Psychiatric exam: PRESENT: appropriate affect, normal mood. ABSENT: homicidal ideation, suicidal ideation Skin exam: PRESENT: dry, intact, warm. ABSENT: cyanosis, rash Results Laboratory Results: 03/07/20 07:48 03/07/20 07:48 02/21/20 02/21/20 02/21/20 16:15 19:29 19:29 CK-MB (CK-2) 1.34 Troponin I 1.170 0.926 NT-Pro-B Natriuret Pep 289 H 02/22/20 02/22/20 00:21 06:01 CK-MB (CK-2) 1.13 0.79 Troponin I 0.587 0.409 NT-Pro-B Natriuret Pep Impressions: Chest X-Ray 02/22/20 00:00 IMPRESSION: Minimal bibasilar atelectasis with otherwise no acute disease. Abdomen/Pelvis CT 02/29/20 00:00 IMPRESSION: 1. History of recent colonic resection. On the images from the study, it appears that some portion of the right colon was removed. The remaining colon is not dilated. There is mild thickening in the rectosigmoid colon. There is mild thickening outside the distal colon in the left pelvis. 2. Suspected distal small bowel obstruction. Transition zone possibly identify in right lower quadrant. Very minimal thickening of the small bowel. However this is more likely due to adhesions. 3. Suspected metastatic bone disease in lower thoracic spine and the lumbar spine and sacrum. 4. Right lower lobe nodule more likely metastatic. Mild atelectasis left lower lobe. Head CT 02/29/20 00:00 IMPRESSION: Peripherally enhancing mass with surrounding edema at the level of the left occipital lobe compatible with metastatic disease. Small Bowel X-Ray 03/01/20 00:00 IMPRESSION: Nonfilling of mid and distal loops of small bowel at five hours. The patient vomited large volume of contrast from the stomach. Delayed imaging to be acquired at two hours Renal Ultrasound 03/04/20 00:00 IMPRESSION: 1. Poor evaluation of the right kidney. 2. Left kidney looks unremarkable. 3. Bladder not seen, decompressed by a Ross catheter. KUB X-Ray 03/08/20 00:00 IMPRESSION: Bowel gas. No obstruction. Assessment and Plan - Diagnosis (1) Ileus, postoperative Is this a current diagnosis for this admission?: Yes Plan: POD #6 status post laparotomy and revision of ileocolonic anastomosis and right hemicolectomy. Unfortunately patient is still not passing stool and has persistent abdominal distention. He is passing flatus. Surgery following. NG tube is out. Encourage ambulation. Twice daily Colace, MiraLAX daily, milk of mag twice daily. (2) Peritonitis with abscess of intestine Is this a current diagnosis for this admission?: Yes Plan: Secondary to perforated appendiceal metastasis. Abdominal fluid growing Enterobacter, Streptococcus, Peptostreptococcus and Bacteroides. Afebrile. Leukocytosis is improved today; WBC 20-> 14-> 30-> 24-> 18-> 13 Received a total of: Vancomycin x 6 days, then oral Zyvox x3 days Combined with IV aztreonam and metronidazole x12 days Have discontinued all of the above and started IV Ertapenem per ID's r ecommendations. EOT 03/16/20 Can transition to p.o Bactrim DS BID and metronidazole 500 mg BID at discharge to complete antibiotic course. (3) VICENTE (acute kidney injury) Is this a current diagnosis for this admission?: Yes Plan: Resolved Increased urine output Creatinine 2.93-> 1.71-> 0.90 This was likely vancomycin induced placated by postsurgical hypotension. Vancomycin trough 26.5 down from 39.6. FeNa 0.15%. Patient was also on Lasix, hence FeNA may not be reliable. Will isabela FEDavid Renal ultrasound had poor evaluation of the right kidney, unremarkable left kidney. Discontinued vancomycin. Nephrology consulted. Appreciate their evaluation/recommendations. Strict and outs. Monitor volume status and electrolytes. Replace electrolytes as needed. Gentle IVF. Monitor chemistry. (4) Hypotension Qualifiers: Hypotension type: hypotension due to hypovolemia Qualified Code(s): I95.89 - Other hypotension; E86.1 - Hypovolemia Is this a current diagnosis for this admission?: Yes Plan: Resolved. Patient has low p.o. intake and excessive gastric drainage with worsening leukocytosis however afebrile. Is already on broad-spectrum IV antibiotics. Monitor vitals volume status. Hold antihypertensives if MAP <65 or symptomatic. Continue fluid resuscitation guided by volume status. Defer medication regimen to cardiology; Dr. Sen is consulted. Appreciate his assistance. (5) Status post colon resection Is this a current diagnosis for this admission?: Yes Plan: POD 6 status post 2nd laparotomy and revision of ileocolonic anastomosis and right hemicolectomy. POD 15 status post ileocolectomy, with intermittent ileus. Secondary to perforated appendiceal metastasis from lung cancer. Diet per surgery. Encourage ambulation. Primary management per surgery; recommendations noted. (6) Lung cancer Qualifiers: Laterality: unspecified laterality Lung location: unspecified part of lung Qualified Code(s): C34.90 - Malignant neoplasm of unspecified part of unspecified bronchus or lung Is this a current diagnosis for this admission?: Yes Plan: Metastatic stage IV lung cancer. Perforated appendix turned out to be lung metastasis to abdomen. CT head is also positive for metastatic lesion. Oncology consult. Chemotherapy is planned once patient is discharged from the hospital. Fitted for radiation treatments today (7) Obesity hypoventilation syndrome Is this a current diagnosis for this admission?: Yes Plan: Nocturnal BiPAP. Supplemental oxygen. (8) COPD exacerbation Is this a current diagnosis for this admission?: Yes Plan: Stable and without exacerbated. History of COPD oxygen dependent on 2 L nasal cannula. Resume home meds. PRN duo nebs. PRN BiPAP. (9) Atrial fibrillation Qualifiers: Atrial fibrillation type: paroxysmal Qualified Code(s): I48.0 - Paroxysmal atrial fibrillation Is this a current diagnosis for this admission?: Yes Plan: Rate controlled. Status post ablation. On beta-blockers and Cardizem. Not anticoagulated, due to recent abdominal surgery. Home medication is Eliquis 5 mg p.o. twice daily. Continue Cardizem. Continue beta-blockers. Resume Eliquis once appropriate. Cardiology consulted recommendations noted. (10) Appendicitis Qualifiers: Appendicitis type: acute appendicitis Acute appendicitis type: with localized peritonitis Appendicitis gangrene presence: unspecified whether gangrene present Appendicitis perforation presence: with perforation Appendicitis abscess presence: with abscess Qualified Code(s): K35.33 - Acute appendicitis with perforation and localized peritonitis, with abscess Is this a current diagnosis for this admission?: Yes Plan: As above. Initially thought to be deep and started to return at to be metastatic lung cancer as per pathology report. Complicated perforated appendix status post exploratory laparotomy and hemicolectomy. (11) HAIDER (obstructive sleep apnea) Is this a current diagnosis for this admission?: Yes Plan: Nocturnal BiPAP. Supplemental oxygen. (12) Metastasis Qualifiers: Area of secondary neoplastic involvement: bone Qualified Code(s): C79.51 - Secondary malignant neoplasm of bone Is this a current diagnosis for this admission?: Yes Plan: As above. (13) Lung nodules Is this a current diagnosis for this admission?: Yes Plan: Oncology on board. Outpatient follow-up is recommended. (14) Elevated troponin Is this a current diagnosis for this admission?: Yes Plan: Trending down. Chest pain free. Although EKG did not demonstrate acute ischemic changes, his troponin was elevated. Therefore cardiology was consulted. Discussed this case with Dr. Vargas (cardiology) who feels that the elevated troponin is related with his sepsis and not due to an acute cardiac event. Cardiology is consulted; appreciate Dr. Sen's assistance. - Time Time Spent with patient: 25-34 minutes Medications reviewed and adjusted accordingly: Yes Anticipated discharge: Home with Homehealth
[2020-03-08] MEDS: TAMSULOSIN HCL 0.4 MG CAP.SR.24H PO SCH (17:50)
--- NOTE | 2020-03-08 19:18 | Progress Note ---
Provider Note Provider Note: CARDIOLOGY PROGRESS NOTE by Dr. Paris Vargas on 03/08/2020. SUBJECTIVE: The patient is no recurrence of atrial fibrillation or flutter. He denies any chest pain or discomfort. There is no shortness of breath. Although his abdomen seems to be distended he is passing flatus there is had a bowel movement. His KUB shows gas in the bowel but no evidence of obstruction. There is no leg edema. There is no PND orthopnea. There is no TIA CVA symptoms. PHYSICAL EXAMINATION: The patient is morbidly obese. In no acute distress. Selected Entries 03/08/20 17:51 Temperature 98.0 F Temperature Oral Source Pulse Rate 77 Respiratory 19 Rate Blood Pressure 155/75 H Blood Pressure 101 Mean BP Location Right Arm BP Position Sitting O2 Sat by Pulse 94 Oximetry Oxygen Delivery Room Air Method HEAD: Is atraumatic normocephalic. EYES: Pupils are equal round regular reactive light accommodation. ENT is negative NECK: Is supple. There is no JVD. Carotids are equal there is no bruits. There is no lymphadenopathy. There is no goiter. There is no accessory muscle respiration use. LUNGS: There is diminished air entry prolonged expiration. There is no rhonchi rales or wheezing. On percussion there is hyperresonance. HEART: S1-S2 is heard. There is no S3 gallop there is no S4 gallop. There is systolic murmur left sternal border and the apex. There is no rub. ABDOMEN: Is obese. Mildly distended. Bowel sounds are present but very weak.. The patient has an NG tube in situ which is draining fluid. Surgical dressing is dry and clean.. EXTREMITIES femorals are diminished there is no femoral bruits. Leg pulses are diminished. There is no pedal edema. There is no DVT or cellulitis. There is no calf tenderness. There is no cyanosis or clubbing. PHOTO PRODUCER: The patient is conscious awake oriented x3 with no focal deficit. PSYCHIATRIC: Patient judgment insight are intact his affect is normal. Abdomen/Pelvis CT 02/21/20 14:37 IMPRESSION: 1. Increased size of the right lower lobe pulmonary nodule me asuring 2.1 cm, previously 1.6 cm. Malignancy is highy suspected. PET-CT or tissue sampling should be considered 2. Dilated appendix with significant pericecal inflammatory change compatible with acute appendicitis. No focal drainable collection. Recommend surgical consultation. 3. Innumerable lucent osseous lesions suggestive neoplasm, likely metastatic disease versus multiple myeloma. Findings discussed with Dr. Gamble At 1519 hours on 02/21/2020. Chest X-Ray 02/22/20 00:00 IMPRESSION: Minimal bibasilar atelectasis with otherwise no acute disease. KUB X-Ray 02/28/20 00:00 IMPRESSION: Ileus versus small-bowel obstruction. Abdomen/Pelvis CT 02/29/20 00:00 IMPRESSION: 1. History of recent colonic resection. On the images from the study, it appears that some portion of the right colon was removed. The remaining colon is not dilated. There is mild thickening in the rectosigmoid colon. There is mild thickening outside the distal colon in the left pelvis. 2. Suspected distal small bowel obstruction. Transition zone possibly identify in right lower quadrant. Very minimal thickening of the small bowel. However this is more likely due to adhesions. 3. Suspected metastatic bone disease in lower thoracic spine and the lumbar spine and sacrum. 4. Right lower lobe nodule more likely metastatic. Mild atelectasis left lower lobe. Head CT 02/29/20 00:00 IMPRESSION: Peripherally enhancing mass with surrounding edema at the level of the left occipital lobe compatible with metastatic disease. KUB X-Ray 02/29/20 08:07 IMPRESSION: 1. Interval placement of nasogastric tube since the prior study dated 02/28/2020 as above. KUB X-Ray 03/01/20 00:00 IMPRESSION: Persistent appearance of multiple gas distended loops of bowel. Enteric tube terminating subdiaphragmatically within the left upper quadrant. A small focus of gas seen subjacent to the left hemidiaphragm likely represents residual post laparoscopic insufflation gas. Small Bowel X-Ray 03/01/20 00:00 IMPRESSION: Nonfilling of mid and distal loops of small bowel at five hours. The patient vomited large volume of contrast from the stomach. Delayed imaging to be acquired at two hours Renal Ultrasound 03/04/20 00:00 IMPRESSION: 1. Poor evaluation of the right kidney. 2. Left kidney looks unremarkable. 3. Bladder not seen, decompressed by a Ross catheter. KUB X-Ray 03/06/20 00:00 IMPRESSION: Postoperative ileus. KUB X-Ray 03/08/20 00:00 IMPRESSION: Bowel gas. No obstruction. IMPRESSION/RECOMMENDATION: 1. Paroxysmal atrial fibrillation. No further episodes of recurrent episodes of atrial fibrillation.. Continue flecainide. 2. Acute renal failure secondary to fever infection, tachycardia, vancomycin toxicity and multiple contrast load. Renal function now is back to normal with a GFR greater than 60. 3. Acute appendicitis. S/p surgery. The patient has a phlegmon and an ruptured appendiceal abscess. Pathology report shows metastatic lung cancer in the appendicectomy specimen. Primary 4. No evidence of acute coronary syndrome. The patient has no anginal symptoms. The patient on 10/25/2019 has had a negative Cardiolite stress test. Also he has no known history of coronary artery disease. Elevated troponin I secondary to supply demand mismatch. This is resolved. 5. History of paroxysmal l atrial fibrillation: The patient had a brief run of recurrent atrial fibrillation with rapid ventricle response. This reverted back to sinus rhythm when the patient was given flecainide at an earlier time. No further recurrence of paroxysmal atrial fibrillation. 6. Hypertension: BP well controlled 7. Hyperlipidemia. 8. COPD: Without exacerbation. 9. Primary lung cancer with bony mets. This will be worked up by oncology. 10. Prior history of cardiomyopathy. The patient's echo in September 2019 showed LV ejection fraction 65 to 70%. 1. Postop ileus resolved. Patient passing flatus and is taking p.o. without nausea vomiting. Medications reviewed medical regimen and management plan discussed with attending provider. Medical decision making is a moderate complexity. 40 minutes spent as patient more than 50% time spent direct patient care. Will follow.
[2020-03-08] MEDS: ATORVASTATIN CALCIUM 20 MG TABLET NG SCH (21:42)
[2020-03-08] MEDS: MONTELUKAST SODIUM 10 MG TABLET NG SCH (21:42)
[2020-03-08] MEDS: ERTAPENEM SODIUM 1 GM in NORMAL SALINE 50 ML IV SCH (21:51)
[2020-03-09 04:49] LABS: ANION GAP 7 (5-19); BLOOD UREA NITROGEN 10 mg/dL (7-20); CALCIUM 8.5 mg/dL (8.4-10.2); CARBON DIOXIDE 25 mmol/L (22-30); CHLORIDE 103 mmol/L (98-107); GLUCOSE 96 mg/dL (75-110); POTASSIUM 3.8 mmol/L (3.6-5.0)
[2020-03-09 04:52] LABS: HEMATOCRIT 26.4 % (37.9-51.0); HEMOGLOBIN 8.8 g/dL (13.5-17.0); MEAN CORPUSCULAR HEMOGLOBIN 32.1 pg (27.0-33.4); MEAN CORPUSCULAR HGB CONC 33.4 g/dL (32.0-36.0); MEAN CORPUSCULAR VOLUME 96 fl (80-97); RED BLOOD COUNT 2.75 10^6/uL (4.35-5.55); RED CELL DISTRIBUTION WIDTH 14.9 % (11.5-14.0); WHITE BLOOD COUNT 13.6 10^3/uL (4.0-10.5)
[2020-03-09 05:08] LABS: PLATELET COUNT 345 10^3/uL (150-450)
[2020-03-09] MEDS: DILTIAZEM HCL 30 MG TABLET NG SCH (05:22)
[2020-03-09] MEDS: HEPARIN SOD (PORCINE) 5,000 UNIT/ML 1 ML VIAL SUBCUT SCH ×3 (05:22→22:06)
--- NOTE | 2020-03-09 07:52 | PDOC PROGRESS REPORT ---
Subjective Progress Note for:: 03/09/20 Subjective:: passing multiple bm's Reason For Visit: RUPTURED APPENDIX,SEPSIS Physical Exam Vital Signs: Temp Pulse Resp BP Pulse Ox 97.8 F 69 14 118/47 L 96 03/09/20 03:16 03/09/20 07:00 03/09/20 04:30 03/09/20 03:16 03/09/20 03:16 Intake & Output 03/08/20 03/09/20 03/10/20 06:59 06:59 06:59 Intake Total 532 1210 Output Total 2300 600 Balance -1768 610 Weight 120.9 kg 118.3 kg General appearance: PRESENT: no acute distress Head exam: PRESENT: normocephalic Eye exam: PRESENT: EOMI Ear exam: PRESENT: normal external ear exam Mouth exam: PRESENT: moist Teeth exam: PRESENT: poor dentation Neck exam: PRESENT: full ROM Respiratory exam: PRESENT: clear to auscultation anshul Cardiovascular exam: PRESENT: RRR Pulses: PRESENT: normal radial pulses, normal femoral pulses Breast: PRESENT: Normal GI/Abdominal exam: PRESENT: soft, other - wound clean Rectal exam: PRESENT: deferred Musculoskeletal exam: PRESENT: full ROM Neurological exam: PRESENT: alert, awake, oriented to person, oriented to place Psychiatric exam: PRESENT: appropriate affect Skin exam: PRESENT: dry Results Laboratory Results: 03/09/20 04:03 03/09/20 04:03 03/09/20 03/09/20 04:03 04:03 WBC 13.6 H RBC 2.75 L Hgb 8.8 L Hct 26.4 L MCV 96 MCH 32.1 MCHC 33.4 RDW 14.9 H Plt Count 345 Sodium 134.6 L Potassium 3.8 Chloride 103 Carbon Dioxide 25 Anion Gap 7 BUN 10 Creatinine 0.69 Est GFR ( Amer) > 60 Glucose 96 Calcium 8.5 02/21/20 02/21/20 02/21/20 16:15 19:29 19:29 CK-MB (CK-2) 1.34 Troponin I 1.170 0.926 NT-Pro-B Natriuret Pep 289 H 02/22/20 02/22/20 00:21 06:01 CK-MB (CK-2) 1.13 0.79 Troponin I 0.587 0.409 NT-Pro-B Natriuret Pep Impressions: Chest X-Ray 02/22/20 00:00 IMPRESSION: Minimal bibasilar atelectasis with otherwise no acute disease. Abdomen/Pelvis CT 02/29/20 00:00 IMPRESSION: 1. History of recent colonic resection. On the images from the study, it appears that some portion of the right colon was removed. The remaining colon is not dilated. There is mild thickening in the rectosigmoid colon. There is mild thickening outside the distal colon in the left pelvis. 2. Suspected distal small bowel obstruction. Transition zone possibly identify in right lower quadrant. Very minimal thickening of the small bowel. However this is more likely due to adhesions. 3. Suspected metastatic bone disease in lower thoracic spine and the lumbar spine and sacrum. 4. Right lower lobe nodule more likely metastatic. Mild atelectasis left lower lobe. Head CT 02/29/20 00:00 IMPRESSION: Peripherally enhancing mass with surrounding edema at the level of the left occipital lobe compatible with metastatic disease. Small Bowel X-Ray 03/01/20 00:00 IMPRESSION: Nonfilling of mid and distal loops of small bowel at five hours. The patient vomited large volume of contrast from the stomach. Delayed imaging to be acquired at two hours Renal Ultrasound 03/04/20 00:00 IMPRESSION: 1. Poor evaluation of the right kidney. 2. Left kidney looks unremarkable. 3. Bladder not seen, decompressed by a Ross catheter. KUB X-Ray 03/08/20 00:00 IMPRESSION: Bowel gas. No obstruction. Assessment & Plan - Plan Summary Plan Summary: pt now with return of bowel function will need portacath for chemo prior to discharge will plan on port in am.
[2020-03-09] MEDS: IPRATROPIUM BROMIDE 0.02% NEB 0.5 MG/2.5 ML AMPUL NEB SCH ×3 (08:06→20:23)
[2020-03-09] MEDS: CARVEDILOL 12.5 MG TABLET NG SCH ×2 (10:13→22:06)
[2020-03-09] MEDS: FLUTICASONE/UMECLIDIN/VILANTER 100-62.5-25 MCG/DOSE IH SCH (10:13)
[2020-03-09] MEDS: FUROSEMIDE 20 MG TABLET PO SCH (10:14)
[2020-03-09] MEDS: DOCUSATE SODIUM 100 MG CAPSULE PO SCH (10:14)
[2020-03-09] MEDS: OXYCODONE HCL SR 10 MG TABLET PO SCH ×2 (10:14→22:05)
[2020-03-09] MEDS: POLYETHYLENE GLYCOL 3350 POWDER 17 GM/1 PACKET NG SCH (10:15)
[2020-03-09] MEDS: FAMOTIDINE INJ/PF 20 MG/2 ML SDV IV SCH ×2 (10:15→22:06)
[2020-03-09] MEDS: FLECAINIDE ACETATE 100 MG TABLET NG SCH (10:15)
[2020-03-09] MEDS: LISINOPRIL 10 MG TABLET NG SCH (10:15)
[2020-03-09] MEDS: ASPIRIN 81 MG TABLET, CHEWABLE NG SCH (10:15)
[2020-03-09] MEDS: LIDOCAINE 5% (700 MG) TRANSDERMAL ADH..PATCH TP SCH (10:15)
--- NOTE | 2020-03-09 10:46 | PDOC PROGRESS REPORT ---
Subjective Progress Note for:: 03/09/20 Subjective:: Patient doing well this morning, was having a bowel movement, plan for port placement tomorrow. Getting stronger. Reason For Visit: RUPTURED APPENDIX,SEPSIS Physical Exam Vital Signs: Temp Pulse Resp BP Pulse Ox 97.8 F 70 16 153/54 H 94 03/09/20 03:16 03/09/20 08:05 03/09/20 08:05 03/09/20 07:48 03/09/20 08:05 Intake & Output 03/08/20 03/09/20 03/10/20 06:59 06:59 06:59 Intake Total 532 1210 524 Output Total 2300 600 Balance -1768 610 524 Weight 120.9 kg 118.3 kg General appearance: PRESENT: no acute distress, well-developed, well-nourished Head exam: PRESENT: atraumatic, normocephalic Eye exam: PRESENT: conjunctiva pink, EOMI, PERRLA. ABSENT: scleral icterus Ear exam: PRESENT: normal external ear exam Mouth exam: PRESENT: moist, tongue midline Neck exam: ABSENT: carotid bruit, JVD, lymphadenopathy, thyromegaly Respiratory exam: PRESENT: clear to auscultation anshul. ABSENT: rales, rhonchi, wheezes Cardiovascular exam: PRESENT: RRR. ABSENT: diastolic murmur, rubs, systolic murmur Pulses: PRESENT: normal dorsalis pedis pul Vascular exam: PRESENT: normal capillary refill GI/Abdominal exam: PRESENT: normal bowel sounds, soft. ABSENT: distended, guarding, mass, organolmegaly, rebound, tenderness Rectal exam: PRESENT: deferred Extremities exam: PRESENT: full ROM. ABSENT: calf tenderness, clubbing, pedal edema Neurological exam: PRESENT: alert, awake, oriented to person, oriented to place, oriented to time, oriented to situation, CN II-XII grossly intact. ABSENT: motor sensory deficit Psychiatric exam: PRESENT: appropriate affect, normal mood. ABSENT: homicidal ideation, suicidal ideation Skin exam: PRESENT: dry, intact, warm. ABSENT: cyanosis, rash Results Laboratory Results: 03/09/20 04:03 03/09/20 04:03 03/09/20 03/09/20 04:03 04:03 WBC 13.6 H RBC 2.75 L Hgb 8.8 L Hct 26.4 L MCV 96 MCH 32.1 MCHC 33.4 RDW 14.9 H Plt Count 345 Sodium 134.6 L Potassium 3.8 Chloride 103 Carbon Dioxide 25 Anion Gap 7 BUN 10 Creatinine 0.69 Est GFR ( Amer) > 60 Glucose 96 Calcium 8.5 02/21/20 02/21/20 02/21/20 16:15 19:29 19:29 CK-MB (CK-2) 1.34 Troponin I 1.170 0.926 NT-Pro-B Natriuret Pep 289 H 02/22/20 02/22/20 00:21 06:01 CK-MB (CK-2) 1.13 0.79 Troponin I 0.587 0.409 NT-Pro-B Natriuret Pep Impressions: Chest X-Ray 02/22/20 00:00 IMPRESSION: Minimal bibasilar atelectasis with otherwise no acute disease. Abdomen/Pelvis CT 02/29/20 00:00 IMPRESSION: 1. History of recent colonic resection. On the images from the study, it appears that some portion of the right colon was removed. The remaining colon is not dilated. There is mild thickening in the rectosigmoid colon. There is mild thickening outside the distal colon in the left pelvis. 2. Suspected distal small bowel obstruction. Transition zone possibly identify in right lower quadrant. Very minimal thickening of the small bowel. However this is more likely due to adhesions. 3. Suspected metastatic bone disease in lower thoracic spine and the lumbar spine and sacrum. 4. Right lower lobe nodule more likely metastatic. Mild atelectasis left lower lobe. Head CT 02/29/20 00:00 IMPRESSION: Peripherally enhancing mass with surrounding edema at the level of the left occipital lobe compatible with metastatic disease. Small Bowel X-Ray 03/01/20 00:00 IMPRESSION: Nonfilling of mid and distal loops of small bowel at five hours. The patient vomited large volume of contrast from the stomach. Delayed imaging to be acquired at two hours Renal Ultrasound 03/04/20 00:00 IMPRESSION: 1. Poor evaluation of the right kidney. 2. Left kidney looks unremarkable. 3. Bladder not seen, decompressed by a Ross catheter. KUB X-Ray 03/08/20 00:00 IMPRESSION: Bowel gas. No obstruction. Assessment & Plan - Diagnosis (1) Metastatic lung cancer (metastasis from lung to other site) Qualifiers: Laterality: unspecified laterality Qualified Code(s): C34.90 - Malignant neoplasm of unspecified part of unspecified bronchus or lung Is this a current diagnosis for this admission?: Yes Plan: Plan for port placement tomorrow, patient getting stronger and hopeful initiation of chemotherapy within the next 1 to 2 weeks. I gave appointment information to nursing, if patient goes over the weekend will need to call for appointment on Thursday. - Time Time Spent with patient: 15-24 minutes
--- NOTE | 2020-03-09 13:48 | PDOC PROGRESS REPORT ---
Subjective Progress Note for:: 03/09/20 Subjective:: Mr. Adithya Diaz is 69 years old with past medical history of A. fib, CHF, hypertension, hyperlipidemia, COPD, sleep apnea, GERD, who was admitted on 02/22/2020 complaining of abdominal discomfort, nausea, vomiting, anorexia with fever and was found to have a perforated appendix, he is status post partial colectomy by surgery patient initially admitted to ICU and transferred to floor on 02/25/2020. Patient was seen on morning rounds. He is found sitting up to the edge of the bed, comfortably, on room air. He reports multiple loose stools overnight. He reports waking in the night, quite disoriented and becoming tangled in his IV line. He reports that he is having increased urine frequency; thinks this may be due to his furosemide and IV fluids; asked to have them adjusted. Otherwise, he is feeling well and hopeful to discharge home soon. He denies fever, chills, chest pain, palpitations, dyspnea, orthopnea, cough, nausea and vomiting. He has no other questions or concerns. No concerns per nursing. Reason For Visit: RUPTURED APPENDIX,SEPSIS Physical Exam Vital Signs: Temp Pulse Resp BP Pulse Ox 97.4 F 75 16 140/58 H 97 03/09/20 11:27 03/09/20 11:27 03/09/20 11:27 03/09/20 11:27 03/09/20 11:27 Intake & Output 03/08/20 03/09/20 03/10/20 06:59 06:59 06:59 Intake Total 532 1210 1179 Output Total 2300 600 Balance -9572 960 6921 Weight 120.9 kg 118.3 kg General appearance: PRESENT: no acute distress, cooperative, obese, well- developed, well-nourished Head exam: PRESENT: atraumatic, normocephalic Eye exam: PRESENT: conjunctiva pink, EOMI, PERRLA. ABSENT: scleral icterus Mouth exam: PRESENT: moist, tongue midline Respiratory exam: PRESENT: clear to auscultation anshul, symmetrical, unlabored, other - room air. ABSENT: rales, rhonchi, wheezes Cardiovascular exam: PRESENT: RRR. ABSENT: diastolic murmur, rubs, systolic murmur Vascular exam: PRESENT: normal capillary refill GI/Abdominal exam: PRESENT: normal bowel sounds, soft, tenderness. ABSENT: distended, guarding, mass, organolmegaly, rebound Rectal exam: PRESENT: deferred Extremities exam: PRESENT: full ROM. ABSENT: calf tenderness, clubbing, pedal edema Neurological exam: PRESENT: alert, awake, oriented to person, oriented to place, oriented to time, oriented to situation, CN II-XII grossly intact. ABSENT: motor sensory deficit Psychiatric exam: PRESENT: appropriate affect, normal mood. ABSENT: homicidal ideation, suicidal ideation Skin exam: PRESENT: dry, intact, warm. ABSENT: cyanosis, rash Results Laboratory Results: 03/09/20 04:03 03/09/20 04:03 03/09/20 03/09/20 04:03 04:03 WBC 13.6 H RBC 2.75 L Hgb 8.8 L Hct 26.4 L MCV 96 MCH 32.1 MCHC 33.4 RDW 14.9 H Plt Count 345 Sodium 134.6 L Potassium 3.8 Chloride 103 Carbon Dioxide 25 Anion Gap 7 BUN 10 Creatinine 0.69 Est GFR ( Amer) > 60 Glucose 96 Calcium 8.5 02/21/20 02/21/20 02/21/20 16:15 19:29 19:29 CK-MB (CK-2) 1.34 Troponin I 1.170 0.926 NT-Pro-B Natriuret Pep 289 H 02/22/20 02/22/20 00:21 06:01 CK-MB (CK-2) 1.13 0.79 Troponin I 0.587 0.409 NT-Pro-B Natriuret Pep Impressions: Chest X-Ray 02/22/20 00:00 IMPRESSION: Minimal bibasilar atelectasis with otherwise no acute disease. Abdomen/Pelvis CT 02/29/20 00:00 IMPRESSION: 1. History of recent colonic resection. On the images from the study, it appears that some portion of the right colon was removed. The remaining colon is not dilated. There is mild thickening in the rectosigmoid colon. There is mild thickening outside the distal colon in the left pelvis. 2. Suspected distal small bowel obstruction. Transition zone possibly identify in right lower quadrant. Very minimal thickening of the small bowel. However this is more likely due to adhesions. 3. Suspected metastatic bone disease in lower thoracic spine and the lumbar spine and sacrum. 4. Right lower lobe nodule more likely metastatic. Mild atelectasis left lower lobe. Head CT 02/29/20 00:00 IMPRESSION: Peripherally enhancing mass with surrounding edema at the level of the left occipital lobe compatible with metastatic disease. Small Bowel X-Ray 03/01/20 00:00 IMPRESSION: Nonfilling of mid and distal loops of small bowel at five hours. The patient vomited large volume of contrast from the stomach. Delayed imaging to be acquired at two hours Renal Ultrasound 03/04/20 00:00 IMPRESSION: 1. Poor evaluation of the right kidney. 2. Left kidney looks unremarkable. 3. Bladder not seen, decompressed by a Ross catheter. KUB X-Ray 03/08/20 00:00 IMPRESSION: Bowel gas. No obstruction. Assessment and Plan - Diagnosis (1) Ileus, postoperative Is this a current diagnosis for this admission?: Yes Plan: Improved; multiple bowel movements overnight. POD #7 status post laparotomy and revision of ileocolonic anastomosis and right hemicolectomy. Surgery following. Tolerating full liquid diet. Encourage ambulation. Daily Colace, MiraLAX daily, milk of mag twice daily. (2) Peritonitis with abscess of intestine Is this a current diagnosis for this admission?: Yes Plan: Secondary to perforated appendiceal metastasis. Abdominal fluid growing Enterobacter, Streptococcus, Peptostreptococcus and Bacteroides. Afebrile. Leukocytosis is improved today; WBC 20-> 14-> 30-> 24-> 18-> 13 Received a total of: Vancomycin x 6 days, then oral Zyvox x3 days Combined with IV aztreonam and metronidazole x12 days Have discontinued all of the above and started IV Ertapenem per ID's recommendations. EOT 03/16/20 Can transition to p.o Bactrim DS BID and metronidazole 500 mg BID at discharge to complete antibiotic course. (3) VICENTE (acute kidney injury) Is this a current diagnosis for this admission?: Yes Plan: Resolved Increased urine output Creatinine 2.93-> 1.71-> 0.90 This was likely vancomycin induced placated by postsurgical hypotension. Vancomycin trough 26.5 down from 39.6. FeNa 0.15%. Patient was also on Lasix, hence FeNA may not be reliable. Will isabela Alcala Renal ultrasound had poor evaluation of the right kidney, unremarkable left kidney. Discontinued vancomycin. Nephrology consulted. Appreciate their evaluation/recommendations. Strict and outs. Monitor volume status and electrolytes. Replace electrolytes as needed. Monitor chemistry. (4) Hypotension Qualifiers: Hypotension type: hypotension due to hypovolemia Qualified Code(s): I95.89 - Other hypotension; E86.1 - Hypovolemia Is this a current diagnosis for this admission?: Yes Plan: Resolved. Monitor vitals volume status. Hold antihypertensives if MAP <65 or symptomatic. Medication regimen per cardiology; Dr. Sen is consulted. Appreciate his assistance. Cardiology now signing off. (5) Status post colon resection Is this a current diagnosis for this admission?: Yes Plan: POD 7 status post 2nd laparotomy and revision of ileocolonic anastomosis and right hemicolectomy. POD 16 status post ileocolectomy, with intermittent ileus. Secondary to perforated appendiceal metastasis from lung cancer. Diet per surgery. Encourage ambulation. Primary management per surgery; recommendations noted. (6) Lung cancer Qualifiers: Laterality: unspecified laterality Lung location: unspecified part of lung Qualified Code(s): C34.90 - Malignant neoplasm of unspecified part of unspecified bronchus or lung Is this a current diagnosis for this admission?: Yes Plan: Metastatic stage IV lung cancer. Perforated appendix turned out to be lung metastasis to abdomen. CT head is also positive for metastatic lesion. Oncology consult. Chemotherapy is planned once patient is discharged from the hospital. Fitted for radiation treatments Port to be placed by surgery tomorrow. Discussed with Dr. Johnson today, may be discharged from his perspective w/ follow up appointment next week. (7) Obesity hypoventilation syndrome Is this a current diagnosis for this admission?: Yes Plan: Nocturnal BiPAP. Supplemental oxygen. (8) COPD exacerbation Is this a current diagnosis for this admission?: Yes Plan: Stable and without exacerbated. History of COPD oxygen dependent on 2 L nasal cannula. Resume home meds. PRN duo nebs. PRN BiPAP. (9) Atrial fibrillation Qualifiers: Atrial fibrillation type: paroxysmal Qualified Code(s): I48.0 - Paroxysmal atrial fibrillation Is this a current diagnosis for this admission?: Yes Plan: Rate controlled. Status post ablation. On beta-blockers and Cardizem. Not anticoagulated, due to recent abdominal surgery. Home medication is Eliquis 5 mg p.o. twice daily. Continue Cardizem. Continue beta-blockers. Resume Eliquis once appropriate. Cardiology consulted recommendations noted. (10) Appendicitis Qualifiers: Appendicitis type: acute appendicitis Acute appendicitis type: with localized peritonitis Appendicitis gangrene presence: unspecified whether gangrene present Appendicitis perforation presence: with perforation Appendicitis abscess presence: with abscess Qualified Code(s): K35.33 - Acute appendicitis with perforation and localized peritonitis, with abscess Is this a current diagnosis for this admission?: Yes Plan: As above. Initially thought to be deep and started to return at to be metastatic lung cancer as per pathology report. Complicated perforated appendix status post exploratory laparotomy and hemicolectomy. (11) HAIDER (obstructive sleep apnea) Is this a current diagnosis for this admission?: Yes Plan: Nocturnal BiPAP. Supplemental oxygen. (12) Metastasis Qualifiers: Area of secondary neoplastic involvement: bone Qualified Code(s): C79.51 - Secondary malignant neoplasm of bone Is this a current diagnosis for this admission?: Yes Plan: As above. (13) Lung nodules Is this a current diagnosis for this admission?: Yes Plan: Oncology on board. Outpatient follow-up is recommended. (14) Elevated troponin Is this a current diagnosis for this admission?: Yes Plan: Trending down. Chest pain free. Although EKG did not demonstrate acute ischemic changes, his troponin was elevated. Therefore cardiology was consulted. Discussed this case with Dr. Vargas (cardiology) who feels that the elevated troponin is related with his sepsis and not due to an acute cardiac event. Cardiology is consulted; appreciate Dr. Sen's assistance. - Time Time Spent with patient: 35 or more minutes Medications reviewed and adjusted accordingly: Yes Anticipated discharge: Home with Homehealth Within: within 72 hours
[2020-03-09] MEDS: TAMSULOSIN HCL 0.4 MG CAP.SR.24H PO SCH (17:28)
[2020-03-09] MEDS: OXYCODONE-ACETAMINOPHEN 5-325 MG TABLET PO PRN (20:26)
[2020-03-09] MEDS: ATORVASTATIN CALCIUM 20 MG TABLET NG SCH (22:04)
[2020-03-09] MEDS: MONTELUKAST SODIUM 10 MG TABLET NG SCH (22:04)
[2020-03-09] MEDS: ERTAPENEM SODIUM 1 GM in NORMAL SALINE 50 ML IV SCH (22:06)
[2020-03-09] MEDS: FLECAINIDE ACETATE 100 MG TABLET PO SCH (22:07)
[2020-03-09] MEDS ORDERED: TRAZODONE HCL 50 MG TABLET PO ONE (23:00)
--- NOTE | 2020-03-09 23:23 | Progress Note ---
Provider Note Provider Note: CARDIOLOGY PROGRESS NOTE by Dr. Paris Vargas on 03/09/2020. SUBJECTIVE: The patient remains in sinus rhythm with no recurrence of atrial fibrillation. The patient is passing flatus and he has no nausea or vomiting. There is no abdominal pain. He denies any TIA CVA symptoms. The patient's cardiac status status seems to be stable. PHYSICAL EXAMINATION: The patient is morbidly obese. In no acute distress. Selected Entries 03/09/20 11:27 Temperature 97.4 F Temperature Axillary Source Pulse Rate 75 Respiratory 16 Rate Blood Pressure 140/58 H Blood Pressure 85 Mean BP Location Right Arm BP Position Sitting O2 Sat by Pulse 97 Oximetry Oxygen Delivery Room Air Method HEAD: Is atraumatic normocephalic. EYES: Pupils are equal round regular reactive light accommodation. ENT is negative NECK: Is supple. There is no JVD. Carotids are equal there is no bruits. There is no lymphadenopathy. There is no goiter. There is no accessory muscle respiration use. LUNGS: There is diminished air entry prolonged expiration. There is no rhonchi rales or wh eezing. On percussion there is hyperresonance. HEART: S1-S2 is heard. There is no S3 gallop there is no S4 gallop. There is systolic murmur left sternal border and the apex. There is no rub. ABDOMEN: Is obese. Mildly distended. Bowel sounds are present but very weak.. The patient has an NG tube in situ which is draining fluid. Surgical dressing is dry and clean.. EXTREMITIES femorals are diminished there is no femoral bruits. Leg pulses are diminished. There is no pedal edema. There is no DVT or cellulitis. There is no calf tenderness. There is no cyanosis or clubbing. 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 PSYCHIATRIC: Patient judgment insight are intact his affect is normal. Labs- All tests 24 hr 03/09/20 03/09/20 03/09/20 04:03 04:03 11:27 WBC 13.6 H RBC 2.75 L Hgb 8.8 L Hct 26.4 L MCV 96 MCH 32.1 MCHC 33.4 RDW 14.9 H Plt Count 345 Sodium 134.6 L Potassium 3.8 Chloride 103 Carbon Dioxide 25 Anion Gap 7 BUN 10 Creatinine 0.69 Est GFR ( Amer) > 60 Est GFR (MDRD) Non-Af > 60 Glucose 96 POC Glucose 120 H Calcium 8.5 Abdomen/Pelvis CT 02/21/20 14:37 IMPRESSION: 1. Increased size of the right lower lobe pulmonary nodule measuring 2.1 cm, previously 1.6 cm. Malignancy is highy suspected. PET-CT or tissue sampling should be considered 2. Dilated appendix with significant pericecal inflammatory change compatible with acute appendicitis. No focal drainable collection. Recommend surgical consultation. 3. Innumerable lucent osseous lesions suggestive neoplasm, likely metastatic disease versus multiple myeloma. Findings discussed with Dr. Gamble At 1519 hours on 02/21/2020. Chest X-Ray 02/22/20 00:00 IMPRESSION: Minimal bibasilar atelectasis with otherwise no acute disease. KUB X-Ray 02/28/20 00:00 IMPRESSION: Ileus versus small-bowel obstruction. Abdomen/Pelvis CT 02/29/20 00:00 IMPRESSION: 1. History of recent colonic resection. On the images from the study, it appears that some portion of the right colon was removed. The remaining colon is not dilated. There is mild thickening in the rectosigmoid colon. There is mild thickening outside the distal colon in the left pelvis. 2. Suspected distal small bowel obstruction. Transition zone possibly identify in right lower quadrant. Very minimal thickening of the small bowel. However this is more likely due to adhesions. 3. Suspected metastatic bone disease in lower thoracic spine and the lumbar spine and sacrum. 4. Right lower lobe nodule more likely metastatic. Mild atelectasis left lower lobe. Head CT 02/29/20 00:00 IMPRESSION: Peripherally enhancing mass with surrounding edema at the level of the left occipital lobe compatible with metastatic disease. KUB X-Ray 02/29/20 08:07 IMPRESSION: 1. Interval placement of nasogastric tube since the prior study dated 02/28/2020 as above. KUB X-Ray 03/01/20 00:00 IMPRESSION: Persistent appearance of multiple gas distended loops of bowel. Enteric tube terminating subdiaphragmatically within the left upper quadrant. A small focus of gas seen subjacent to the left hemidiaphragm likely represents residual post laparoscopic insufflation gas. Small Bowel X-Ray 03/01/20 00:00 IMPRESSION: Nonfilling of mid and distal loops of small bowel at five hours. The patient vomited large volume of contrast from the stomach. Delayed imaging to be acquired at two hours Renal Ultrasound 03/04/20 00:00 IMPRESSION: 1. Poor evaluation of the right kidney. 2. Left kidney looks unremarkable. 3. Bladder not seen, decompressed by a Ross catheter. KUB X-Ray 03/06/20 00:00 IMPRESSION: Postoperative ileus. KUB X-Ray 03/08/20 00:00 IMPRESSION: Bowel gas. No obstruction. IMPRESSION/RECOMMENDATION: 1. Paroxysmal atrial fibrillation. No further episodes of recurrent episodes of atrial fibrillation.. Continue flecainide. 2. Acute renal failure secondary to fever infection, tachycardia, vancomycin toxicity and multiple contrast load. Renal function now is back to normal with a GFR greater than 60. 3. Acute appendicitis. S/p surgery. The patient has a phlegmon and an ruptured appendiceal abscess. Pathology report shows metastatic lung cancer in the appendicectomy specimen. Primary 4. No evidence of acute coronary syndrome. The patient has no anginal symptoms. The patient on 10/25/2019 has had a negative Cardiolite stress test. Also he has no known history of coronary artery disease. Elevated troponin I secondary to supply demand mismatch. This is resolved. 5. History of paroxysmal l atrial fibrillation: The patient with no further recurrences of atrial fibrillation. Will change the flecainide to 50 mg p.o. every 12 hours. We will stop the patient's plain Cardizem. Continue the patient's beta-roel. 6. Hypertension: BP well controlled 7. Hyperlipidemia. 8. COPD: Without exacerbation. 9. Primary lung cancer with bony mets. This will be worked up by oncology. 10. Prior history of cardiomyopathy. The patient's echo in September 2019 showed LV ejection fraction 65 to 70%. 1. Postop ileus resolved. Patient passing flatus and is taking p.o. without nausea vomiting. Medications reviewed medical regimen and management plan discussed with attending provider. Medical decision making is a moderate complexity. 40 minutes spent as patient more than 50% time spent direct patient care. Cardiac status is stable. We will sign off and follow the patient in the office.
[2020-03-10] MEDS: HEPARIN SOD (PORCINE) 5,000 UNIT/ML 1 ML VIAL SUBCUT SCH ×2 (05:47→13:09)
[2020-03-10] MEDS ORDERED: FENTANYL CITRATE INJ/PF 100 MCG/2 ML AMPUL ONE (05:56)
[2020-03-10] MEDS ORDERED: MIDAZOLAM 2 MG/2 ML INJ ONE (05:57)
[2020-03-10] MEDS ORDERED: ONDANSETRON HCL INJ/PF 4 MG/2 ML SDV ONE (05:57)
[2020-03-10] MEDS ORDERED: PROPOFOL INJ 200 MG/20 ML VIAL IV ONE (05:57)
[2020-03-10] MEDS ORDERED: BUPIVACAINE HCL 0.25% /EPINEPHRINE INJ/PF 30 ML SDV ONE (07:32)
[2020-03-10] MEDS ORDERED: FUROSEMIDE 40 MG TABLET PO SCH (08:00)
[2020-03-10] MEDS: IPRATROPIUM BROMIDE 0.02% NEB 0.5 MG/2.5 ML AMPUL NEB SCH ×2 (08:13→14:46)
[2020-03-10] MEDS ORDERED: DOCUSATE SODIUM 100 MG CAPSULE PO SCH (10:00)
[2020-03-10] MEDS ORDERED: BUPIVACAINE INJ/PF LIPOSOME/PF 266 MG/20 ML SDV ONE (10:37)
[2020-03-10] MEDS ORDERED: MEPERIDINE HCL/PF INJ 25 MG/1 ML DISP.SYRIN IV PRN (11:32)
[2020-03-10] MEDS ORDERED: PROMETHAZINE HCL INJ 25 MG/1 ML VIAL IV PRN (11:32)
[2020-03-10] MEDS ORDERED: DIPHENHYDRAMINE HCL 50 MG/ML VIAL IV PRN (11:32)
[2020-03-10] MEDS ORDERED: FENTANYL CITRATE INJ/PF 100 MCG/2 ML AMPUL IV PRN ×2 (11:32)
[2020-03-10] MEDS ORDERED: LIDOCAINE 1% INJ-PF (10 MG/ML) 30 ML SDV ONE (11:39)
--- NOTE | 2020-03-10 12:06 | EKG REPORT ---
SEVERITY:- ABNORMAL ECG - SINUS RHYTHM NONSPECIFIC INTRAVENTRICULAR CONDUCTION DELAY : Confirmed by: Paris Vargas MD 10-Mar-2020 12:06:02
--- NOTE | 2020-03-10 12:49 | RADIOLOGY REPORT (SQ) ---
EXAM DESCRIPTION: CHEST SINGLE VIEW IMAGES COMPLETED DATE/TIME: 03/10/2020 12:28 pm REASON FOR STUDY: POST OP COMPARISON: 02/22/2020 TECHNIQUE: Single frontal radiographic view of the chest acquired. NUMBER OF VIEWS: One view. LIMITATIONS: None. FINDINGS: LUNGS AND PLEURA: No pneumothorax. No consolidation or pleural effusion. MEDIASTINUM AND HILAR STRUCTURES: Stable. HEART AND VASCULAR STRUCTURES: Stable. BONES: No acute findings. HARDWARE: New left-sided chest port in expected position. case monitor. OTHER: No other significant finding. IMPRESSION: No pneumothorax. No consolidation or pleural effusion..New left-sided chest port in expe cted position. TECHNICAL DOCUMENTATION: JOB ID: [id number] [place]-72 2010 [employer]- All Rights Reserved Reading location - IP/workstation name: [email or web address]
[2020-03-10] MEDS: FLECAINIDE ACETATE 100 MG TABLET PO SCH (13:03)
[2020-03-10] MEDS: CARVEDILOL 12.5 MG TABLET NG SCH (13:03)
[2020-03-10] MEDS: OXYCODONE HCL SR 10 MG TABLET PO SCH (13:04)
[2020-03-10] MEDS: FAMOTIDINE INJ/PF 20 MG/2 ML SDV IV SCH (13:05)
[2020-03-10] MEDS: LIDOCAINE 5% (700 MG) TRANSDERMAL ADH..PATCH TP SCH (13:05)
[2020-03-10] MEDS: FLUTICASONE/UMECLIDIN/VILANTER 100-62.5-25 MCG/DOSE IH SCH (13:05)
[2020-03-10] MEDS: ASPIRIN 81 MG TABLET, CHEWABLE NG SCH (13:05)
[2020-03-10] MEDS: LISINOPRIL 10 MG TABLET NG SCH (13:05)
--- NOTE | 2020-03-10 13:07 | Operative Report ---
Nonrecallable Operative Report DATE OF SURGERY: 03/10/20 PREOPERATIVE DIAGNOSIS: Metastatic lung cancer POSTOPERATIVE DIAGNOSIS: Metastatic lung cancer OPERATION: Port-A-Cath placement left chest SURGEON: LEIGH WARREN ANESTHESIA: LMAC TISSUE REMOVED OR ALTERED: None COMPLICATIONS: None ESTIMATED BLOOD LOSS: 5 cc INTRAOPERATIVE FINDINGS: See note PROCEDURE: Patient was brought to the operating awake alert stable condition placed in the upper table supine position and given IV sedation the left chest was prepped and draped in usual sterile fashion. Using a 22-gauge needle we anesthetized the skin underneath the left clavicle and then obtained access to the left subclavian vein. The finding needle was removed and then using a 16-gauge needle the left subclavian vein was punctured through the needle a wire was placed into the superior vena cava confirmed on fluoroscopy. The needle was removed. A using an 11 blade a small skin kamla was made and then the dilator introducer was placed over the wire into the superior vena cava the dilator was removed and the catheter was placed through the introducer moved into position and the introducer was torn away. Good position was confirmed by fluoroscopy. A small incision was made on the left anterior chest just above the left nipple after the skin was anesthetized with 1% lidocaine plain. The incision was made with a 15 blade and a small pocket was made for the port. The tunnel maker supplied with a kit was utilized to tunnel the catheter from the subclavian stick site to the port site. The catheter was attached to the port was placed into the pocket irrigated and flushed well and then the pocket was closed with interrupted 3-0 Vicryl in the subcu and the skin was closed with intracuticular 4-0 Monocryl. Good position was confirmed with fluoroscopy the port was heparinized with a heparinized saline solution withdrew and flushed easily. Steri-Strips were applied to complete the procedure. The patient was then transferred to recovery in stable condition and confirmatory chest x-ray revealed good position. Estimated blood loss was less than 5 cc sponge and needle counts were correct x2.
[2020-03-10] MEDS: POLYETHYLENE GLYCOL 3350 POWDER 17 GM/1 PACKET NG SCH (13:09)
--- NOTE | 2020-03-10 14:01 | RADIOLOGY REPORT (SQ) ---
EXAM DESCRIPTION: INJECT VENOUS ACCESS DEVICE IMAGES COMPLETED DATE/TIME: 03/10/2020 12:28 pm REASON FOR STUDY: PORT A CATH; LEFT SIDE COMPARISON: Chest films 03/10/2020 FLUOROSCOPY TIME: 1 minutes 7 digital fluoroscopic images saved to PACS. TECHNIQUE: Intra-operative images acquired during surgical procedure to evaluate progress. NUMBER OF IMAGES: 7 digital fluoroscopic images LIMITATIONS: None. FINDINGS: Intra procedural imaging and fluoro during placement of a left-sided permanent central saman e with the tip in the superior vena cava. Please see the operative report for further details IMPRESSION: IMAGE(S) OBTAINED DURING PROCEDURE. COMMENT: Quality ID [id number]: Final reports for procedures using fluoroscopy that document radiation exp osure indices, or exposure time and number of fluorographic images (if radiation exposure indices are not available) Please consult full operative report of the attending physician for description of the procedure. TECHNICAL DOCUMENTATION: JOB ID: [id number] 2010 [email or web address]- All Rights Reserved Reading location - IP/workstation name: [email or web address]
[2020-03-10 15:46] VITALS: BP 157/71
--- NOTE | 2020-03-11 08:14 | PDOC DISCHARGE SUMMARY ---
Impression - Admit/DC Date/PCP Admission Date/Primary Care Provider: 02/21/20 16:04 ETELVINA WANG MD Discharge Date: 03/10/20 - Discharge Diagnosis (1) Ileus, postoperative Is this a current diagnosis for this admission?: Yes (2) Peritonitis with abscess of intestine Is this a current diagnosis for this admission?: Yes (3) VICENTE (acute kidney injury) Is this a current diagnosis for this admission?: Yes (4) Hypotension Is this a current diagnosis for this admission?: Yes (5) Status post colon resection Is this a current diagnosis for this admission?: Yes (6) Lung cancer Is this a current diagnosis for this admission?: Yes (7) Obesity hypoventilation syndrome Is this a current diagnosis for this admission?: Yes (8) COPD exacerbation Is this a current diagnosis for this admission?: Yes (9) Atrial fibrillation Is this a current diagnosis for this admission?: Yes (10) Appendicitis Is this a current diagnosis for this admission?: Yes (11) HAIDER (obstructive sleep apnea) Is this a current diagnosis for this admission?: Yes (12) Metastasis Is this a current diagnosis for this admission?: Yes (13) Lung nodules Is this a current diagnosis for this admission?: Yes (14) Elevated troponin Is this a current diagnosis for this admission?: Yes - Additional Information Resuscitation Status: Full Code Discharge Diet: Cardiac, Other (Comments) Discharge Activity: Activity As Tolerated, Balance Activity w/Rest, Slowly Increase Activity, Supervised Activity Referrals: [facility] [Provider Group] (Dev Wang NP) [facility] [Outside] DEVANTE MILLER MD [ACTIVE STAFF] - (Follow up with Dr. Miller early next week.) LEIGH WARREN MD [ACTIVE STAFF] - (Follow up within 7-10 days.) SKYLER RUIZ MD [ACTIVE STAFF] - (Follow up within 4-6 weeks.) Prescriptions: Sulfamethoxazole/Trimethoprim [Bactrim Ds Tablet] 1 each PO BID #12 tablet Tamsulosin HCl [Flomax 0.4 mg Cap.sr] 0.4 mg PO PCSUPPER #30 cap.sr.24h Metronidazole 500 mg PO BID #12 tablet Oxycodone HCl [Oxycodone HCl ER] 10 mg PO Q12 #14 tab.er.12h Oxycodone HCl/Acetaminophen [Percocet 5-325 mg Tablet] 1 tab PO Q6HP PRN #15 tab PRN Reason: Fluticasone/Umeclidin/Vilanter [Trelegy 100-62.5-25 Mcg Ellipta 14 Dose/Dpi] 1 inh IH DAILY #1 inhaler Home Medications: Furosemide [Lasix 40 mg Tablet] 40 mg PO QAM #30 tablet 06/20/13 Lisinopril [Prinivil 10 mg Tablet] 10 mg PO DAILY #30 tablet 06/20/13 Carvedilol [Coreg 12.5 mg Tablet] 12.5 mg PO Q12 10/30/14 Montelukast Sodium [Singulair 10 mg Tablet] 10 mg PO QHS #30 tablet 11/03/14 Aspirin [Ecotrin 81 mg EC Tablet] 81 mg PO DAILY 02/21/20 Atorvastatin Calcium [Lipitor 20 mg Tablet] 20 mg PO QHS 02/21/20 Cyanocobalamin (Vitamin B-12) [Vitamin B-12 1000 mcg Tablet] 2,000 mcg PO BID 02/21/20 Flecainide Acetate [Tambocor 100 mg Tablet] 100 mg PO DAILY 02/21/20 [place]-3 Fatty Acids/Fish Oil [[place] 3 Fish Oil Softgel] 1 each PO BID 02/21/20 Acetaminophen [Tylenol 650 mg Supp] 650 mg MA Q4HP PRN supp.rect 03/10/20 Docusate Sodium [Colace 100 mg Capsule] 200 mg PO DAILY capsule 03/10/20 Fluticasone/Umeclidin/Vilanter [Trelegy 100-62.5-25 Mcg Ellipta 14 Dose/Dpi] 1 inh IH DAILY #1 inhaler 03/10/20 Metronidazole 500 mg PO BID #12 tablet 03/10/20 Oxycodone HCl [Oxycodone HCl ER] 10 mg PO Q12 #14 tab.er.12h 03/10/20 Oxycodone HCl/Acetaminophen [Percocet 5-325 mg Tablet] 1 tab PO Q6HP PRN #15 tab 03/10/20 Polyethylene Glycol 3350 [Miralax Powder 17 gm/Packet] 17 gm NG DAILY powd.pack 03/10/20 Sulfamethoxazole/Trimethoprim [Bactrim Ds Tablet] 1 each PO BID #12 tablet 03/10/20 Tamsulosin HCl [Flomax 0.4 mg Cap.sr] 0.4 mg PO PCSUPPER #30 cap.sr.24h 03/10/20 History of Present Illiness History of Present Illness: EDINSON BLOCK is a 69 year old male with the past medical history significant for chronic CHF, hypertension, atrial fibrillation post ablation (not requiring rhythm/rate control or anticoagulant), COPD, HAIDER (BiPAP nightly), and known lung nodules without completed work-up due to COVID 19 delays who presented to the emergency department today with a complaint of 4 days of progressively worsening abdominal discomfort, nausea, vomiting, anorexia, with generalized sense of unwellness and low-grade temperature. Evaluation emergency department revealed fever (100.4), tachycardia (HR 117), tachypnea (RR 26), leukocytosis (WBCs 20.5 with left-sided shift), and CT imaging demonstrating dilated appendix with significant pericecal inflammatory changes compatible with acute appendicitis, increased size of the pulmonary nodules; malignancy highly suspected. Numerous lucent osseous lesions suggestive of neoplasm; metastatic disease versus multiple myeloma. Patient has been provided IV fluids, IV Levaquin and metronidazole. He has been referred to the surgical service for operative management of his acute sinusitis. Cardiology has been consulted related to elevated troponin of 1.17. Oncology consulted to assist with the metastatic work-up. He is referred to the hospitalist service for admission and management of the above-stated complaints findings. Hospital Course Hospital Course: (1) Ileus, postoperative Resolved; has now hasd multiple bowel movements s/p laparotomy and revision of ileocolonic anastomosis and right hemicolectomy. Surgery has cleared patient for discharge with a 7-10 day follow up. Continue full liquid diet, may advanced to soft diet as tolerated. Encouraged frequent ambulation Continue daily colace and MiraLAX (2) Peritonitis with abscess of intestine Secondary to perforated appendiceal metastasis. Abdominal fluid growing Enterobacter, Streptococcus, Peptostreptococcus and Bacteroides. Afebrile. Leukocytosis is improved today; WBC 20-> 14-> 30-> 24-> 18-> 13 Received a total of: Vancomycin x 6 days, then oral Zyvox x3 days Combined with IV aztreonam and metronidazole x12 days Discontinued all of the above and placed on IV Ertapenem per ID's recommendations x4 days. Transition to p.o Bactrim DS BID and metronidazole 500 mg BID at discharge to complete antibiotic course. (3) VICENTE (acute kidney injury) Resolved Adequate urine output Creatinine 2.93-> 1.71-> 0.90 This was likely vancomycin induced placated by postsurgical hypotension. Vancomycin trough 26.5 down from 39.6. FeNa 0.15%. Patient was also on Lasix, hence FeNA may not be reliable. Will get FEUr Renal ultrasound had poor evaluation of the right kidney, unremarkable left kidney. Discontinued vancomycin. Nephrology consulted. Appreciate their evaluation/recommendations. (4) Hypotension Resolved. Medication regimen per cardiology; Dr. Sen is consulted. Appreciate his assistance. (5) Status post colon resection s/p 2nd laparotomy and revision of ileocolonic anastomosis and right hemicolectomy. s/p ileocolectomy, with intermittent ileus. Secondary to perforated appendiceal metastasis from lung cancer. Primary management per surgery; recommendations noted. Follow up in 7-10 days for staple removal. (6) Lung cancer Metastatic stage IV lung cancer. Perforated appendix turned out to be lung metastasis to abdomen. CT head is also positive for metastatic lesion. Oncology consult. Chemotherapy is planned once patient is discharged from the hospital. Radiation treatments to be arranged as outpatient. Port-a-cath has been placed. Follow up with Dr. Miller early next week. (7) Obesity hypoventilation syndrome (8) COPD exacerbation Stable and without exacerbated. History of COPD oxygen dependent on 2 L nasal cannula. Resume home meds. (9) Atrial fibrillation Rate controlled. Status post ablation. On beta-blockers and Cardizem. Not anticoagulated, due to recent abdominal surgery. Home medication is Eliquis 5 mg p.o. twice daily. Continue Cardizem. Continue beta-blockers. Resume Eliquis once cleared by Heme/Onc and Surgery. (10) Appendicitis As above. Initially thought to be deep and started to return at to be metastatic lung cancer as per pathology report. Complicated perforated appendix status post exploratory laparotomy and hemicolectomy. (11) HAIDER (obstructive sleep apnea) (12) Metastasis As above. (13) Lung nodules Outpatient follow-up is recommended. (14) Elevated troponin Down trend, no longer following. Chest pain free. Although EKG did not demonstrate acute ischemic changes, his troponin was elevated. Therefore cardiology was consulted. Discussed this case with Dr. Ruiz (cardiology) who feels that the elevated troponin is related with his sepsis and not due to an acute cardiac event. Cardiology was consulted; appreciate Dr. Sen's assistance. Physical Exam Vital Signs: Temp Pulse Resp BP Pulse Ox 98.0 F 91 15 157/71 H 94 03/10/20 15:43 03/10/20 15:43 03/10/20 15:43 03/10/20 15:43 03/10/20 15:43 Intake & Output 03/10/20 03/11/20 03/12/20 06:59 06:59 06:59 Intake Total 3515 600 Output Total 25 Balance 3515 575 Weight 120 kg General appearance: PRESENT: no acute distress, cooperative, morbidly obese, well-developed, well-nourished Head exam: PRESENT: atraumatic, normocephalic Eye exam: PRESENT: conjunctiva pink, EOMI, PERRLA. ABSENT: scleral icterus Mouth exam: PRESENT: moist, tongue midline Respiratory exam: PRESENT: clear to auscultation anshul, symmetrical, unlabored. ABSENT: rales, rhonchi, wheezes Cardiovascular exam: PRESENT: RRR, +S1, +S2. ABSENT: diastolic murmur, rubs, systolic murmur Vascular exam: PRESENT: normal capillary refill GI/Abdominal exam: PRESENT: normal bowel sounds, soft, tenderness. ABSENT: distended, guarding, mass, organolmegaly, rebound Rectal exam: PRESENT: deferred Extremities exam: PRESENT: full ROM. ABSENT: calf tenderness, clubbing, pedal edema Musculoskeletal exam: PRESENT: ambulatory Neurological exam: PRESENT: alert, awake, oriented to person, oriented to place, oriented to time, oriented to situation, CN II-XII grossly intact. ABSENT: motor sensory deficit Psychiatric exam: PRESENT: appropriate affect, normal mood. ABSENT: homicidal ideation, suicidal ideation Skin exam: PRESENT: dry, intact, warm. ABSENT: cyanosis, rash Results Laboratory Results: WBC 13.6 10^3/uL (4.0-10.5) H 03/09/20 04:03 RBC 2.75 10^6/uL (4.35-5.55) L 03/09/20 04:03 Hgb 8.8 g/dL (13.5-17.0) L 03/09/20 04:03 Hct 26.4 % (37.9-51.0) L 03/09/20 04:03 MCV 96 fl (80-97) 03/09/20 04:03 MCH 32.1 pg (27.0-33.4) 03/09/20 04:03 MCHC 33.4 g/dL (32.0-36.0) 03/09/20 04:03 RDW 14.9 % (11.5-14.0) H 03/09/20 04:03 Plt Count 345 10^3/uL (150-450) 03/09/20 04:03 Lymph % (Auto) 6.4 % (13-45) L 03/05/20 05:51 [place] % (Auto) 7.2 % (3-13) 03/05/20 05:51 Eos % (Auto) 0.5 % (0-6) 03/05/20 05:51 Baso % (Auto) 0.3 % (0-2) 03/05/20 05:51 Reticulocyte # 0.066 10^6/uL (0.028-0.122) 02/22/20 06:01 Absolute Neuts (auto) 16.1 10^3/uL (1.7-8.2) H 03/05/20 05:51 Absolute Lymphs (auto) 1.2 10^3/uL (0.5-4.7) 03/05/20 05:51 Absolute Monos (auto) 1.4 10^3/uL (0.1-1.4) 03/05/20 05:51 Absolute Eos (auto) 0.1 10^3/uL (0.0-0.6) 03/05/20 05:51 Absolute Basos (auto) 0.0 10^3/uL (0.0-0.2) 03/05/20 05:51 Total Counted 100 02/29/20 06:36 Seg Neutrophils % 85.6 % (42-78) H 03/05/20 05:51 Seg Neuts % (Manual) 77 % (42-78) 02/29/20 06:36 Band Neutrophils % 1 % (3-5) L 02/29/20 06:36 Lymphocytes % (Manual) 15 % (13-45) 02/29/20 06:36 Atypical Lymphs % 1 % (0) 02/29/20 06:36 Monocytes % (Manual) 5 % (3-13) 02/29/20 06:36 Eosinophils % (Manual) 1 % (0-6) 02/29/20 06:36 Basophils % (Manual) 0 % (0-2) 02/29/20 06:36 Abs Neuts (Manual) 9.8 10^3/uL (1.7-8.2) H 02/29/20 06:36 Abs Lymphs (Manual) 2.0 10^3/uL (0.5-4.7) 02/29/20 06:36 Abs Monocytes (Manual) 0.6 10^3/uL (0.1-1.4) 02/29/20 06:36 Absolute Eos (Manual) 0.1 10^3/uL (0.0-0.6) 02/29/20 06:36 Abs Basophils (Manual) 0.0 10^3/uL (0.0-0.2) 02/29/20 06:36 Toxic Granulation SLIGHT 02/27/20 14:47 Large Platelets PRESENT 02/21/20 12:39 Giant Platelets PRESENT 02/29/20 06:36 Platelet Comment ADEQUATE 02/29/20 06:36 Polychromasia 1+ 02/29/20 06:36 Anisocytosis SLIGHT 02/29/20 06:36 Microcytosis Not Reportable 02/27/20 14:47 Tear Drop Cells SLIGHT 02/29/20 06:36 Ovalocytes SLIGHT 02/21/20 16:58 Helmet Cells SLIGHT 02/29/20 06:36 RBC Morph Comment NORMO-CYTIC/CHROMIC 02/27/20 05:05 Retic Count (auto) 1.99 % (0.66-2.85) 02/22/20 06:01 PT 15.5 SEC (11.4-15.4) H 02/21/20 12:39 INR 1.22 02/21/20 12:39 Carbonic Acid 1.08 mmol/L (1.05-1.35) 02/22/20 08:35 HCO3/H2CO3 Ratio 22:1 02/22/20 08:35 ABG pH 7.45 (7.35-7.45) 02/22/20 08:35 ABG pCO2 35.8 mmHg (35-45) 02/22/20 08:35 ABG pO2 71.3 mmHg (80-100) L 02/22/20 08:35 ABG HCO3 24.1 mmol/L (20-24) H 02/22/20 08:35 ABG Total CO2 25.2 mmol/L (23-27) 02/22/20 08:35 ABG O2 Saturation 95.1 % (94-98) 02/22/20 08:35 ABG Base Excess 0.5 mmol/L 02/22/20 08:35 VBG pH 7.48 (7.30-7.42) H 02/21/20 12:39 VBG pCO2 29.6 mmHg (35-63) L 02/21/20 12:39 VBG HCO3 21.7 mmol/L (20-32) 02/21/20 12:39 VBG Base Excess -0.8 mmol/L 02/21/20 12:39 FiO2 30% 02/22/20 08:35 Sodium 134.6 mmol/L (137-145) L 03/09/20 04:03 Potassium 3.8 mmol/L (3.6-5.0) 03/09/20 04:03 Chloride 103 mmol/L (98-107) 03/09/20 04:03 Carbon Dioxide 25 mmol/L (22-30) 03/09/20 04:03 Anion Gap 7 (5-19) 03/09/20 04:03 BUN 10 mg/dL (7-20) 03/09/20 04:03 Creatinine 0.69 mg/dL (0.52-1.25) 03/09/20 04:03 Est GFR ( Amer) > 60 (>60) 03/09/20 04:03 Est GFR (MDRD) Non-Af > 60 (>60) 03/09/20 04:03 Glucose 96 mg/dL (75-110) 03/09/20 04:03 POC Glucose 95 mg/dL (70-110) 03/10/20 06:19 Lactic Acid 1.0 mmol/L (0.7-2.1) 02/22/20 08:55 Calcium 8.5 mg/dL (8.4-10.2) 03/09/20 04:03 Phosphorus 4.4 mg/dL (2.5-4.5) 03/04/20 06:05 Magnesium 1.9 mg/dL (1.6-2.3) 03/04/20 06:05 Iron 13.5 ug/dL (49-181) L 02/22/20 06:01 TIBC 229 ug/dL (250-450) L 02/22/20 06:01 % Saturation 6 % 02/22/20 06:01 Transferrin 154.21 mg/dL (206.00-381.00) L 02/22/20 06:01 Ferritin 810.00 ng/mL (17.9-464.0) H 02/22/20 06:01 Total Bilirubin 0.6 mg/dL (0.2-1.3) 03/05/20 05:51 Direct Bilirubin 0.1 mg/dL (0.0-0.4) 03/05/20 05:51 Neonat Total Bilirubin Not Reportable 03/05/20 05:51 Neonat Direct Bilirubin Not Reportable 03/05/20 05:51 Neonat Indirect Bili Not Reportable 03/05/20 05:51 AST 43 U/L (17-59) 03/05/20 05:51 ALT 28 U/L (<50) 03/05/20 05:51 Alkaline Phosphatase 161 U/L (38-126) H 03/05/20 05:51 Total Alk Phosphatase 169 IU/L (39-117) H 02/22/20 08:55 Alk Phos Iso-Intestine 0 % (0-18) 02/22/20 08:55 Alk Phos Iso-Bone 28 % (12-68) 02/22/20 08:55 Alk Phos Iso-Liver 72 % (13-88) 02/22/20 08:55 Ammonia < 8.7 umol/L (9-33) L 02/22/20 08:55 CK-MB (CK-2) 0.79 ng/mL (<4.55) 02/22/20 06:01 Troponin I 0.409 ng/mL 02/22/20 06:01 NT-Pro-B Natriuret Pep 289 pg/mL (<125) H 02/21/20 19:29 Total Protein 5.5 g/dL (6.3-8.2) L 03/05/20 05:51 Albumin 2.7 g/dL (3.5-5.0) L 03/05/20 05:51 Prostate Specific Ag 4.840 ng/mL (<4.00) H 02/22/20 08:55 Vitamin B12 975.0 pg/mL (239-931) H 02/22/20 06:01 Folate 13.30 ng/mL (>2.76) 02/22/20 06:01 TSH 1.32 uIU/mL (0.47-4.68) 02/22/20 06:01 Random Cortisol 4.84 ug/dL (None Established) 02/22/20 08:55 Urine Color CELESTINO 03/04/20 12:00 Urine Appearance CLOUDY 03/04/20 12:00 Urine pH 5.0 (5.0-9.0) 03/04/20 12:00 Ur Specific [place] 1.021 03/04/20 12:00 Urine Protein 30 mg/dL (NEGATIVE) H 03/04/20 12:00 Urine Glucose (UA) NEGATIVE mg/dL (NEGATIVE) 03/04/20 12:00 Urine Ketones NEGATIVE mg/dL (NEGATIVE) 03/04/20 12:00 Urine Blood LARGE (NEGATIVE) H 03/04/20 12:00 Urine Nitrite NEGATIVE (NEGATIVE) 02/21/20 14:40 Urine Nitrite (Reflex) NEGATIVE (NEGATIVE) 03/04/20 12:00 Urine Bilirubin NEGATIVE (NEGATIVE) 03/04/20 12:00 Urine Urobilinogen NEGATIVE mg/dL (<2.0) 03/04/20 12:00 Ur Leukocyte Esterase NEGATIVE (NEGATIVE) 02/21/20 14:40 Leukocyte Esterase Rfl SMALL (NEGATIVE) H 03/04/20 12:00 Urine WBC (Auto) 1 /HPF 02/21/20 14:40 Urine RBC (Auto) 79 /HPF 03/04/20 12:00 Urine Bacteria (Auto) TRACE /HPF 03/04/20 12:00 Urine WBC (Reflex) 25 /HPF 03/04/20 12:00 Squamous Epi Cells Auto 4 /HPF 03/04/20 12:00 Amorphous Sediment Auto TRACE /HPF 03/04/20 12:00 Urine Mucus (Auto) OCC /LPF 03/04/20 12:00 Urine Creatinine 332.0 mg/dL (22-328) H 03/04/20 12:00 Urine Sodium 22 mmol/L (30-90) L 03/04/20 12:00 Urine Ascorbic Acid NEGATIVE (NEGATIVE) 03/04/20 12:00 Time Trough Drawn 0551 03/05/20 05:51 Vancomycin Trough 13.7 ug/mL (5.0-20.0) 03/05/20 05:51 SARS-CoV-2 (PCR) NEGATIVE (NEGATIVE) 02/21/20 17:39 Slides for Path Review PATHOLOGIST REVIEWED 03/03/20 05:38 02/21/20 02/21/20 02/21/20 16:15 19:29 19:29 CK-MB (CK-2) 1.34 Troponin I 1.170 0.926 NT-Pro-B Natriuret Pep 289 H 02/22/20 02/22/20 00:21 06:01 CK-MB (CK-2) 1.13 0.79 Troponin I 0.587 0.409 NT-Pro-B Natriuret Pep Impressions: Abdomen/Pelvis CT 02/21/20 14:37 IMPRESSION: 1. Increased size of the right lower lobe pulmonary nodule measuring 2.1 cm, previously 1.6 cm. Malignancy is highy suspected. PET-CT or tissue sampling should be considered 2. Dilated appendix with significant pericecal inflammatory change compatible with acute appendicitis. No focal drainable collection. Recommend surgical consultation. 3. Innumerable lucent osseous lesions suggestive neoplasm, likely metastatic disease versus multiple myeloma. Findings discussed with Dr. Gamble At 1519 hours on 02/21/2020. Chest X-Ray 02/22/20 00:00 IMPRESSION: Minimal bibasilar atelectasis with otherwise no acute disease. KUB X-Ray 02/28/20 00:00 IMPRESSION: Ileus versus small-bowel obstruction. Abdomen/Pelvis CT 02/29/20 00:00 IMPRESSION: 1. History of recent colonic resection. On the images from the study, it appears that some portion of the right colon was removed. The remaining colon is not dilated. There is mild thickening in the rectosigmoid colon. There is mild thickening outside the distal colon in the left pelvis. 2. Suspected distal small bowel obstruction. Transition zone possibly identify in right lower quadrant. Very minimal thickening of the small bowel. However this is more likely due to adhesions. 3. Suspected metastatic bone disease in lower thoracic spine and the lumbar spine and sacrum. 4. Right lower lobe nodule more likely metastatic. Mild atelectasis left lower lobe. Head CT 02/29/20 00:00 IMPRESSION: Peripherally enhancing mass with surrounding edema at the level of the left occipital lobe compatible with metastatic disease. KUB X-Ray 02/29/20 08:07 IMPRESSION: 1. Interval placement of nasogastric tube since the prior study dated 02/28/2020 as above. KUB X-Ray 03/01/20 00:00 IMPRESSION: Persistent appearance of multiple gas distended loops of bowel. Enteric tube terminating subdiaphragmatically within the left upper quadrant. A small focus of gas seen subjacent to the left hemidiaphragm likely represents residual post laparoscopic insufflation gas. Small Bowel X-Ray 03/01/20 00:00 IMPRESSION: Nonfilling of mid and distal loops of small bowel at five hours. The patient vomited large volume of contrast from the stomach. Delayed imaging to be acquired at two hours Renal Ultrasound 03/04/20 00:00 IMPRESSION: 1. Poor evaluation of the right kidney. 2. Left kidney looks unremarkable. 3. Bladder not seen, decompressed by a Ross catheter. KUB X-Ray 03/06/20 00:00 IMPRESSION: Postoperative ileus. KUB X-Ray 03/08/20 00:00 IMPRESSION: Bowel gas. No obstruction. Chest X-Ray 03/10/20 00:00 IMPRESSION: No pneumothorax. No consolidation or pleural effusion..New left- sided chest port in expected position. Venous Access Device Injection 03/10/20 00:00 IMPRESSION: IMAGE(S) OBTAINED DURING PROCEDURE. Plan Plan of Treatment: The patient is discharged home, in stable condition, to the care of family members with home health services arranged. He is advised to follow-up with his primary care provider within 1 week, with Dr. Miller at the beginning of next week with Dr. Warren in 7 to 10 days, and with Dr. Ruiz in 4 to 6 weeks. Defer resumption of Eliquis to Heme/Onc and Surgery. He is to complete an additional 6 days of Bactrim DS and metronidazole for completion of his antibiotic course. He is encouraged to take his other medications as prescribed. Continue pulmonary toilet at home with incentive spirometer, flutter valve, and frequent ambulation. Return to the emergency department as needed for concerning symptoms. Time Spent: Greater than 30 Minutes Stroke Is this a Stroke Patient?: No Acute Heart Failure - Is this a Heart Failure Patient?: No
== END 2020-03-10 17:14 | disposition home health service (06) | DRG 853 ==
LOC: ER 11:34 → EH 16:04 → ICU 23:14 → 5 02-25 12:32 → ICU 02-25 12:44 → 5 02-25 13:19
PROVIDERS: ADMIT Internal Medicine Critical Care Medicine; ATTEND Registered Nurse
PROC: 0DBH0ZZ Excision of Cecum, Open Approach (ICD-10-PCS; 2020-02-21)
PROC: 0D1B0ZK Bypass Ileum to Ascending Colon, Open Approach (ICD-10-PCS; 2020-02-21)
PROC: 5A1945Z Respiratory Ventilation, 24-96 Consecutive Hours (ICD-10-PCS; 2020-02-21)
PROC: 5A09557 Assistance with Respiratory Ventilation, Greater than 96 Consecutive Hours, Continuous Positive Airway Pressure (ICD-10-PCS; 2020-02-23)
PROC: 0DTF0ZZ Resection of Right Large Intestine, Open Approach (ICD-10-PCS; principal; 2020-03-02 10:30)
PROC: 02HV33Z Insertion of Infusion Device into Superior Vena Cava, Percutaneous Approach (ICD-10-PCS; 2020-03-10)
DX: A41.89 Other specified sepsis (principal); N17.0 Acute kidney failure with tubular necrosis; K35.33 Acute appendicitis with perforation, localized peritonitis, and gangrene, with abscess; I21.A1 Myocardial infarction type 2; R65.21 Severe sepsis with septic shock; K56.7 Ileus, unspecified; E66.2 Morbid (severe) obesity with alveolar hypoventilation; C79.89 Secondary malignant neoplasm of other specified sites; C79.51 Secondary malignant neoplasm of bone; C78.5 Secondary malignant neoplasm of large intestine and rectum; Q44.7 Other congenital malformations of liver; K91.89 Other postprocedural complications and disorders of digestive system; C34.31 Malignant neoplasm of lower lobe, right bronchus or lung; B95.5 Unspecified streptococcus as the cause of diseases classified elsewhere; B96.6 Bacteroides fragilis [B. fragilis] as the cause of diseases classified elsewhere; E78.5 Hyperlipidemia, unspecified; I95.89 Other hypotension; E86.1 Hypovolemia; K21.9 Gastro-esophageal reflux disease without esophagitis; I48.0 Paroxysmal atrial fibrillation; T36.8X5A Adverse effect of other systemic antibiotics, initial encounter; Y92.9 Unspecified place or not applicable; Y83.6 Removal of other organ (partial) (total) as the cause of abnormal reaction of the patient, or of later complication, without mention of misadventure at the time of the procedure; E83.42 Hypomagnesemia; I10 Essential (primary) hypertension; J44.9 Chronic obstructive pulmonary disease, unspecified; Z90.49 Acquired absence of other specified parts of digestive tract; Z79.899 Other long term (current) drug therapy; Z78.1 Physical restraint status; Z03.818 Encounter for observation for suspected exposure to other biological agents ruled out; Z99.81 Dependence on supplemental oxygen; Z87.891 Personal history of nicotine dependence; Z88.0 Allergy status to penicillin; Z88.7 Allergy status to serum and vaccine; Z79.82 Long term (current) use of aspirin
CPT/HCPCS: 00532; 00790; 36415; 36598; 70460; 71045; 74018; 74176; 74177; 74250; 76770; 80048; 80053; 80076; 80202; 81001; 82140; 82533; 82553; 82565; 82570; 82607; 82728; 82746; 82803; 82962; 83540; 83550; 83605; 83735; 83880; 84080; 84100; 84153; 84300; 84443; 84466; 84484; 85025; 85027; 85045; 85610; 87040; 87070; 87075; 87077; 87086; 87186; 87205; 87635; 88307; 88341; 88342; 93005; 93010; 93306; 94002; 94003; 94640; 94660; 94667; 94799; 99140; 99221; 99291; 99292; C1788; C1887; C9113; C9290; C9803; J0330; J0360; J1100; J1170; J1335; J1642; J1644; J1720; J1940; J1956; J2185; J2250; J2270; J2370; J2405; J2704; J2800; J3010; J3230; J3370; J3475; J3480; J3490; J7030; J7060; J7120; J7620; P9041; Q9967; S0028

== ENCOUNTER 2020-04-27 13:17 | Inpatient (IN) | payer MEDICARE, MEDICAID, OTHER ==
--- NOTE | 2020-04-27 13:48 | ER Document Report ---
ED Medical Screen (RME) - General Chief Complaint: Vomiting Stated Complaint: ABDOMINAL PAIN Time Seen by Provider: 04/27/20 13:33 Primary Care Provider: SHANNON MENDOZA FNP-C [Primary Care Provider] - Follow up as needed Mode of Arrival: Wheelchair Information source: Patient, Relative Notes: Patient is a 69-year-old male who was sent over by his primary care doctor with possibility of a bowel obstruction. Patient has had a significant past medical history recently back the first part of this year patient was diagnosed with lung cancer with mets to the bone and brain. He had a ruptured appendix at the time of first admission when they found that he had the stage IV lung cancer. Patient also had a small bowel obstruction around the same time. Is been a pproximately 1 week since he has had a last bowel movement he is having increased discomfort and pain. Patient also has been taking morphine for pain control and which she is not used to taking. Physical exam: Patient is a well-nourished frail-appearing 69-year-old male who appears uncomfortable. Cardiac: Regular rate and rhythm without murmurs. Lungs: Bilateral breath sounds of breath sounds heart rate increased throughout and appear hyperactive. Patient has inspiratory expiratory rhonchi. Abdomen: In a sitting position patient has moderately distended he is tympanitic in the upper quadrants to percussion diffuse tenderness is noted. Examination of the belly in a sitting position does show a well-healed incisional scar. I have greeted and performed a rapid initial assessment of this patient. A comprehensive ED assessment and evaluation of the patient, analysis of test results and completion of the medical decision making process will be conducted by additional ED providers. Dictation of this chart was performed using voice recognition software; therefore, there may be some unintended grammatical errors. TRAVEL OUTSIDE OF THE [place] IN LAST 30 DAYS: No - Related Data Allergies/Adverse Reactions: Penicillins Allergy (Severe, Verified 06/16/13 08:53) Anaphylaxis Tetanus Vaccines and Toxoid [Tetanus] Allergy (Severe, Verified 06/16/13 08:53) Anaphylaxis Past Medical History - Past Medical History Cardiac Medical History: Reports: Hx Atrial Fibrillation, Hx Congestive Heart Failure, Hx Hypercholesterolemia, Hx Hypertension Pulmonary Medical History: Reports: Hx COPD, Hx Sleep Apnea - Patient uses a BiPAP at night. Denies: Hx Tuberculosis Endocrine Medical History: Denies: Hx Diabetes Mellitus Type 2, Hx Hypothyroidism GI Medical History: Reports: Hx Gastroesophageal Reflux Disease Psychiatric Medical History: Denies: Hx Depression - Unable to assess, Pt intubated & sedated Past Surgical History: Reports: Hx Cardiac Catheterization - ablasion February 2014, Hx Cholecystectomy - Cholecystectomy complicated requiring liver resection. Physical Exam - Vital signs Vitals: Temp Pulse Resp BP Pulse Ox 98.0 F 92 20 144/80 H 95 04/27/20 13:21 04/27/20 13:21 04/27/20 13:21 04/27/20 13:21 04/27/20 13:21 Course - Vital Signs Vital signs: Temp Pulse Resp BP Pulse Ox 98.0 F 92 20 144/80 H 95 04/27/20 13:21 04/27/20 13:21 04/27/20 13:21 04/27/20 13:21 04/27/20 13:21 Doctor's Discharge - Discharge Referrals: SHANNON MENDOZA, CHART CALCULATOR-C [Primary Care Provider] - Follow up as needed
[2020-04-27 14:12] LABS: ABSOLUTE BASOPHILS # (AUTO) 0.1 10^3/uL (0.0-0.2); ABSOLUTE LYMPHOCYTES (AUTO) 2.3 10^3/uL (0.5-4.7); BASOPHILS % (AUTO) 0.5 % (0-2); EOSINOPHILS % (AUTO) 0.3 % (0-6); HEMATOCRIT 28.1 % (37.9-51.0); HEMOGLOBIN 9.1 g/dL (13.5-17.0); LYMPHOCYTES % (AUTO) 20.4 % (13-45); MEAN CORPUSCULAR HGB CONC 32.3 g/dL (32.0-36.0); MEAN CORPUSCULAR VOLUME 90 fl (80-97); MONOCYTES % (AUTO) 8.6 % (3-13); PLATELET COUNT 276 10^3/uL (150-450); RED BLOOD COUNT 3.13 10^6/uL (4.35-5.55); RED CELL DISTRIBUTION WIDTH 15.4 % (11.5-14.0); SEGMENTED NEUTROPHILS % (AUTO) 70.2 % (42-78); TOTAL CELLS COUNTED % (AUTO) 100 %; WHITE BLOOD COUNT 11.3 10^3/uL (4.0-10.5)
[2020-04-27 14:28] LABS: ALBUMIN 3.4 g/dL (3.5-5.0); ALKALINE PHOSPHATASE 434 U/L (38-126); ANION GAP 9 (5-19); ASPARTATE AMINO TRANSFERASE 30 U/L (17-59); BILIRUBIN,DIRECT 0.4 mg/dL (0.0-0.4); BILIRUBIN,TOTAL 1.2 mg/dL (0.2-1.3); BLOOD UREA NITROGEN 18 mg/dL (7-20); CALCIUM 9.8 mg/dL (8.4-10.2); CARBON DIOXIDE 27 mmol/L (22-30); CHLORIDE 95 mmol/L (98-107); GLUCOSE 96 mg/dL (75-110); POTASSIUM 3.7 mmol/L (3.6-5.0)
--- NOTE | 2020-04-27 16:43 | RADIOLOGY REPORT (SQ) ---
EXAM DESCRIPTION: CT ABD/PELVIS NO ORAL OR IV IMAGES COMPLETED DATE/TIME: 04/27/2020 4:20 pm REASON FOR STUDY: obstruction COMPARISON: 02/29/2020 TECHNIQUE: CT scan of the abdomen and pelvis performed without intravenous or oral contrast. Images reviewed with lung, soft tissue, and bone windows. Reconstructed coronal and sagittal MPR images revi ewed. All images stored on PACS. All CT scanners at this facility use dose modulation, iterative reconstruction, and/or weight based d osing when appropriate to reduce radiation dose to as low as reasonably achievable (ALARA). [facility]: Dose Right [facility]: CareDose [facility]: Dose Right [facility]: Teradose 4D [facility]: [employer] RADIATION DOSE: mGy. LIMITATIONS: None. FINDINGS: LOWER CHEST: Increased size of the right lower lobe pulmonary nodule measuring 2.6 cm, pre viously 2.1 cm. Additional multifocal subcentimeter centrilobular opacities within the right lower l obe, new from prior. Coronary atherosclerosis. NON-CONTRASTED LIVER, SPLEEN, ADRENALS: Evaluation limited by lack of IV contrast. No identified sign ificant masses. PANCREAS: No masses. No peripancreatic inflammatory changes. GALLBLADDER: Surgically absent. RIGHT KIDNEY AND URETER: No suspicious masses. Assessment limited by lack of IV contrast. Exophytic upper pole cyst. No significant calcifications. No hydronephrosis or hydroureter. LEFT KIDNEY AND URETER: No suspicious masses. Assessment limited by lack of IV contrast. Exophytic l ower pole lesion, likely cyst but too small characterize. No significant calcifications. No hydron ephrosis or hydroureter. AORTA AND RETROPERITONEUM: Aortoiliac atherosclerosis without aneurysm. No retroperitoneal mass, ezekiel nopathy or hemorrhage. BOWEL AND PERITONEAL CAVITY: Multiple loops of dilated small bowel within the left and central abdome n measuring up to 4.0 cm with associated gas fluid levels. There is transition point with decompress ed bowel within the right hemiabdomen. Transition point likely series 3, image 48 -56. There is shilpa e mild associated mesenteric inflammatory change within this region. Additional mild mesenteric stra nding and nodularity along the anterior abdominal wall possibly edema or carcinomatosis. No evidence of free intraperitoneal gas. Moderate gas is stool noted throughout the colon. Postsurgical change s within the pericecal region. APPENDIX: Surgically absent. PELVIS, BLADDER, AND ABDOMINAL WALL:Unremarkable urinary bladder. Prostatomegaly with scattered pros tatic calcifications. Prostate measures 5.8 cm. Left inguinal fat containing hernia. BONES: Progression of multiple compression deformities including T8, T12 and L2. There are multiple lucent lesions throughout the visualized spine and axial skeleton. Innumerable lytic lesions through out the sacrum and bilateral ilium. For reference there is a large lytic lesion involving the left i liac wing measuring approximately 5.6 by 3.7 cm (series 3, image 62). OTHER: No other significant finding. IMPRESSION: 1. Patient status post appendectomy with findings compatible small bowel obstruction and transition point within the right lower quadrant. Associated mild mid abdomen and right lower quadr ant mesenteric stranding. No evidence of perforation. 2. Increased size of the right lower lobe pulmonary nodule measuring 2.6 cm compatible with malignanc y. Additional new subcentimeter centrilobular opacities within the right lower lobe possibly metastat ic disease or infectious/ inflammatory. 3. Innumerable bony metastatic disease with progression of multiple pathologic compression deformiti es including T8, T12 and L2. 4. Additional incidental findings as above. Findings conveyed to Dr. Romero at 1633 hours on 04/27/2020. COMMENT: Quality ID # [id number]: Final reports with documentation of one or more dose reduction techniques (e.g., Automated exposure control, adjustment of the mA and/or kV according to patient size, use of iterative reconstruction technique) TECHNICAL DOCUMENTATION: JOB ID: [id number] 2010 [employer]- All Rights Reserved Reading location - IP/workstation name: [email or web address]
--- NOTE | 2020-04-27 17:23 | ER Document Report ---
ED GI/ - General Chief Complaint: Vomiting Stated Complaint: ABDOMINAL PAIN Time Seen by Provider: 04/27/20 13:33 Primary Care Provider: SAHNNON MENDOZA FNP-C [Primary Care Provider] - Follow up as needed Mode of Arrival: Wheelchair Information source: Patient, Relative - Notes: This 69-year-old man presents to the emergency department history of appendecto my in February of this year and then a follow-up small bowel obstruction, found to have lung cancer with multiple metastasis, stage IV. He presents today with a one-week history of no bowel movement. He is using oral morphine for pain. He is taking Colace as a stool softener. Patient complains of pain and nausea and episodic vomiting. He has not started chemotherapy, has had some radiation therapy for the brain metastasis. TRAVEL OUTSIDE OF THE [place] IN LAST 30 DAYS: No - Related Data Allergies/Adverse Reactions: Penicillins Allergy (Severe, Verified 06/16/13 08:53) Anaphylaxis Tetanus Vaccines and Toxoid [Tetanus] Allergy (Severe, Verified 06/16/13 08:53) Anaphylaxis Past Medical History - General Information source: Patient, Relative - Social History Smoking Status: Unknown if Ever Smoked Family History: Reviewed & Not Pertinent Patient has homicidal ideation: No - Past Medical History Cardiac Medical History: Reports: Hx Atrial Fibrillation, Hx Congestive Heart Failure, Hx Hypercholesterolemia, Hx Hypertension Pulmonary Medical History: Reports: Hx COPD, Hx Sleep Apnea - Patient uses a BiP AP at night. Denies: Hx Tuberculosis Endocrine Medical History: Denies: Hx Diabetes Mellitus Type 2, Hx Hypothyroidism GI Medical History: Reports: Hx Gastroesophageal Reflux Disease Psychiatric Medical History: Denies: Hx Depression - Unable to assess, Pt intubated & sedated Past Surgical History: Reports: Hx Cardiac Catheterization - ablasion February 2014, Hx Cholecystectomy - Cholecystectomy complicated requiring liver resection. Review of Systems - Review of Systems Notes: Constitutional: Negative for fever. HENT: Negative for sore throat. Eyes: Negative for visual changes. Cardiovascular: Negative for chest pain. Respiratory: Negative for shortness of breath. Gastrointestinal: + Distention + abdominal pain + nausea and vomiting. Genitourinary: Negative for dysuria. Musculoskeletal: Negative for back pain. Skin: Negative for rash. Neurological: Negative for headaches, weakness or numbness. 10 point ROS negative except as marked above and in HPI. Physical Exam - Vital signs Vitals: Temp Pulse Resp BP Pulse Ox 98.0 F 92 20 144/80 H 95 04/27/20 13:21 04/27/20 13:21 04/27/20 13:21 04/27/20 13:21 04/27/20 13:21 - Notes Notes: PHYSICAL EXAMINATION: Physical Exam: General: Alert responsive 69-year-old man in moderate distress secondary to abdominal pain HEENT: NC/AT, pupils equal round and reactive to light, MM moist,nares clear, oropharynx clear, airway patent Neck: supple, no adenopathy, no masses. Good range of motion Lungs: clear, no wheezing, no rales no rhonchi CVS: Regular rate and rhythm no murmur gallop or rub Abdomen: Firm, distended, decreased bowel sounds, diffuse tenderness, no masses, and no rebound. Ext: No edema, clubbing or cyanosis. Neuro: Alert and responsive, moving all 4 extremities on command, cranial nerves intact, no focal findings Skin: Intact no open lesions, no rash PSYCH: Normal mood, normal affect. Course - Re-evaluation Re-evalutation: 04/27/20 17:[address] scan report as well as the laboratory data, patient does have a transition point in the right lower quadrant distended abdomen with decreased bowel sounds and nausea. There are multiple metastasis noted in the spine and there is stranding noted in the mesentery. I discussed this patient with Dr. Dockery, surgery operations intelligence, he has requested oral contrast CT scan, he commented that the contrast needs to be in the GI tract for 2 hours prior to scanning. After this study has been done, he will see the patient for further evaluation. 04/27/20 21:[address] scan with contrast reveals ileus with partial small bowel obstruction. Since returning from CT the patient is passing gas the abdomen is softer and he is more comfortable. I discussion with the general surgeon , he suggests a medical admission for opiate induced constipation and mag citrate from above with enemas from below for relief. The surgeon is on his way to do a case however will complete his documentation soon thereafter. 04/27/20 21:57 I have contacted the hospitalist, , he will admit the patient to the IMCU, narcotic induced bowel syndrome, atrial fibrillation with RVR. - Vital Signs Vital signs: Temp Pulse Resp BP Pulse Ox 98.0 F 92 15 158/78 H 98 04/27/20 13:21 04/27/20 13:21 04/27/20 21:13 04/27/20 21:13 04/27/20 21:13 - Laboratory Result Diagrams: 04/27/20 13:51 04/27/20 13:51 Laboratory results interpreted by me: 04/27/20 04/27/20 04/27/20 13:51 13:51 17:00 WBC 11.3 H RBC 3.13 L Hgb 9.1 L Hct 28.1 L RDW 15.4 H Sodium 130.9 L Chloride 95 L Alkaline Phosphatase 434 H Albumin 3.4 L Urine Ketones TRACE H Urine Urobilinogen 4.0 H - Diagnostic Test Radiology reviewed: Pending, Image reviewed, Reports reviewed Radiology results interpreted by me: 04/27/20 21:24 CT abdomen and pelvis with IV contrast: Small bowel obstruction, metastatic disease related to the lung cancer. CT of the abdomen and pelvis with contrast only. Prominence of small bowel urinary seen on the right mid mesentery in the likely transition point at the right lower quadrant near the anastomosis with questionable ileus versus small bowel can be raised. 04/27/20 21:36 Discharge - Discharge Clinical Impression: Narcotic bowel syndrome, Partial obstruction of small intestine, Atrial fibrillation with RVR Abdominal pain Qualifiers: Abdominal location: unspecified location Qualified Code(s): R10.9 - Unspecified abdominal pain Condition: Good Disposition: ADMITTED INPATIENT Admitting Provider: Massimo (Hospitalist) Unit Admitted: IMCU Referrals: SHANNON MENDOZA FNP-C [Primary Care Provider] - Follow up as needed
[2020-04-27] MEDS ORDERED: ONDANSETRON HCL INJ/PF 4 MG/2 ML SDV IV ONE (17:33)
[2020-04-27] MEDS ORDERED: HYDROMORPHONE HCL INJ/PF 2 MG/ML AMPULE IV ONE (17:33)
[2020-04-27 17:38] LABS: APPEARANCE,URINE CLEAR; BILIRUBIN,URINE NEGATIVE (NEGATIVE); COLOR,URINE YELLOW; GLUCOSE, URINE NEGATIVE (NEGATIVE); KETONES,URINE TRACE mg/dL (NEGATIVE); LEUKOCYTE ESTERASE,URINE NEGATIVE (NEGATIVE); NITRITE,URINE NEGATIVE (NEGATIVE); PROTEIN,URINE NEGATIVE (NEGATIVE); URINE SPECIFIC GRAVITY 1.016
[2020-04-27] MEDS ORDERED: NORMAL SALINE 1000 ML 1,000 ML IV ONE (17:38)
[2020-04-27] MEDS ORDERED: DILTIAZEM HCL INJ 25 MG/5 ML VIAL IV ONE (18:45)
--- NOTE | 2020-04-27 20:42 | RADIOLOGY REPORT (SQ) ---
CT ABDOMEN AND PELVIS WITHOUT INTRAVENOUS CONTRAST: 04/27/2020 7:34 PM CDT HISTORY: 79-year old with concern for small bowel. COMPARISON: CT of abdomen and pelvis from 04/27/2020 TECHNIQUE: Axial contiguous images were obtained from the lung bases to the proximal femurs without intravenous contrast administered. Oral contrast was also given to the patient. Sagittal and coronal reconstructions were also obtained and reviewed. This exam was performed according to our departmental dose-optimization program, which includes automated exposure control, adjustment of the mA and/or KV according to the patient's size and/or use of iterative reconstruction technique. FINDINGS: No focal consolidative airspace opacities are seen. No discrete pleural effusions are seen. There are subcentimeter small nodules noted within the right middle and upper lobe. There is a pleural-based nodule at the right lower lobe measuring up to 2.0 x 1.5 cm. Small hiatal hernia is present. Evaluation of the solid organs is limited by the lack of intravenous contrast. The visualized hepatic parenchyma is unremarkable. The gallbladder is surgically absent. The spleen and pancreas are normal in contour. The bilateral adrenal glands appear unremarkable. There is mild to moderate right and mild left hydronephrosis present.. The urinary bladder is mildly distended, and appears grossly unremarkable. The stomach is not well distended. There several dilated and prominent loops of small bowel at the mid abdomen. There may be a transition point at the right lower pelvis possibly at the anastomosis site. No pericolonic inflammatory stranding is seen. There are multiple diverticula seen within the sigmoid and descending colon, without evidence to suggest diverticulitis. There are post surgical changes seen at the right lower pelvis. There are small bilateral inguinal hernias containing fat. There are stranding at the right anterior abdominal wall. There is no evidence of pneumoperitoneum. There is some stranding at the right mid abdomen within the mesentery.. The aorta and IVC appear normal in size. No significantly enlarged lymph nodes are seen in the abdomen or pelvis. There is patchy lytic changes within the sacrum, thoracic spine, and lumbar spine concerning for metastatic disease. This is most pronounced at the sacrum and T8.. Multilevel degenerative changes are seen within the lumbar spine. IMPRESSION: There is prominence of the small bowel with stranding seen at the right mid mesentery and a likely transition point at the right lower quadrant of the abdomen. This may be near the anastomosis site or more centrally. This could represent evidence of an ileus or developing small bowel obstruction. There are multiple nodules at the right lung base which are predominantly subcentimeter. There is a pleural-based nodule measuring at least 2.0 cm. This is concerning for malignancy. There are patchy lytic changes within the bones concerning for metastatic disease.
[2020-04-27] MEDS ORDERED: MAGNESIUM CITRATE 296 ML BOTTLE PO ONE (21:13)
[2020-04-27] MEDS ORDERED: MAG HYDROX/AL HYDROX/SIMETH SUSP 30 ML UDCUP PO PRN (21:58)
[2020-04-27] MEDS ORDERED: GUAIFENESIN SYRP 200 MG/10 ML UDC PO PRN (22:05)
[2020-04-27] MEDS ORDERED: MELATONIN 5 MG TABLET PO PRN (22:05)
[2020-04-27] MEDS ORDERED: ACETAMINOPHEN 325 MG TABLET PO PRN (22:05)
[2020-04-27] MEDS ORDERED: DILTIAZEM HCL/D5W 125 MG/125 ML RTUINJ IV PRN (22:12)
--- NOTE | 2020-04-27 23:15 | PDOC CONSULTATION ---
Consultation Consult Date: 04/27/20 Provider Consulted: FRANCISCA CANDELARIO Consult reason:: Small bowel obstruction on CAT scan and constipation for several days History of Present Illness Admission Date/PCP: 04/27/20 22:07 LALA MCCRARY Patient complains of: Abdominal discomfort, distention, and constipation for several days History of Present Illness: EDINSON BLOCK is a 69 year old male who presents to the emergency room somewhat confused and unable to provide a history, therefore this was obtained from his . According to the , the patient had an appendectomy back in February 2020, 2 weeks postoperatively the patient developed a small bowel obstruction and underwent expiratory laparotomy with bowel resection. During the same hospitalization the patient was found to have lung cancer stage IV with metastases within the abdomen, bones, and brain. Since then he has undergone radiation therapy, is in the process of starting chemotherapy, and has been started on high doses of opioids (MS Contin) because of his metastasis induced pain. The patient presents to the emergency room complaining of constipation for several days, flatus present, nausea and vomiting today, and increased abdominal girth. CT scan of the abdomen pelvis with IV and oral contrast was IV and oral contrast. This CAT scan demonstrated slightly distended small bowel loops, contrast in the right colon, large amount of gas in the colon, narrowing of the terminal ileum, as per possible developing small bowel obstruction or partial, chronic small bowel obstruction. 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 Denies: Hemorrhagic CVA, Ischemic CVA, Seizures Endocrine Medical History: Denies: Diabetes Mellitus Type 1, Diabetes Mellitus Type 2, Hyperthyroidism, Hypothyroidism Renal/ Medical History: Reports: Other - Benign prostatic hyperplasia Denies: Chronic Kidney Disease, Nephrolithiasis Malignancy Medical History: Reports: Lung Cancer GI Medical History: Reports: Gastroesophageal Reflux Disease Denies: Cirrhosis, Hepatitis, Peptic Ulcer Disease Musculoskeltal Medical History: Denies: Arthritis, Gout Skin Medical History: Denies: Eczema, Psoriasis Psychiatric Medical History: Denies: Alcohol Dependency, Depression - Unable to assess, Pt intubated & sedated, Substance Abuse, Tobacco Dependency Traumatic Medical History: Reports: None Hematology: Denies: Anemia, Bleeding Tendencies Infectious Medical History: Reports: None Past Surgical History Past Surgical History: Reports: Appendectomy, Cardiac Catheterization - ablasion for rapid rate atrial fibrillation February 2014, Cholecystectomy - Cholecystectomy complicated requiring liver resection., Other - Right hemicolectomy Social History Lives with: Spouse/Significant other Smoking Status: Former Smoker Electronic Cigarette use?: No Frequency of Alcohol Use: None Hx Recreational Drug Use: No Drugs: None Hx Prescription Drug Abuse: No - Advance Directive Resuscitation Status: Full Code Family History Family History: Hypertension, Malignancy. denies: CAD, DM Parental Family History Reviewed: No Children Family History Reviewed: No Sibling(s) Family History Reviewed.: No Medication/Allergy Home Medications: Furosemide [Lasix 40 mg Tablet] 40 mg PO QAM #30 tablet 06/20/13 Lisinopril [Prinivil 10 mg Tablet] 10 mg PO DAILY #30 tablet 06/20/13 Carvedilol [Coreg 12.5 mg Tablet] 12.5 mg PO Q12 10/30/14 Montelukast Sodium [Singulair 10 mg Tablet] 10 mg PO QHS #30 tablet 11/03/14 Aspirin [Ecotrin 81 mg EC Tablet] 81 mg PO DAILY 02/21/20 Atorvastatin Calcium [Lipitor 20 mg Tablet] 20 mg PO QHS 02/21/20 Cyanocobalamin (Vitamin B-12) [Vitamin B-12 1000 mcg Tablet] 2,000 mcg PO BID 02/21/20 Flecainide Acetate [Tambocor 100 mg Tablet] 100 mg PO DAILY 02/21/20 Penrose-3 Fatty Acids/Fish Oil [Penrose 3 Fish Oil Softgel] 1 each PO BID 02/21/20 Acetaminophen [Tylenol 650 mg Supp] 650 mg [place] Q4HP PRN supp.rect 03/10/20 Docusate Sodium [Colace 100 mg Capsule] 200 mg PO DAILY capsule 03/10/20 Fluticasone/Umeclidin/Vilanter [Trelegy 100-62.5-25 Mcg Ellipta 14 Dose/Dpi] 1 inh IH DAILY #1 inhaler 03/10/20 Metronidazole 500 mg PO BID #12 tablet 03/10/20 Oxycodone HCl [Oxycodone HCl ER] 10 mg PO Q12 #14 tab.er.12h 03/10/20 Oxycodone HCl/Acetaminophen [Percocet 5-325 mg Tablet] 1 tab PO Q6HP PRN #15 tab 03/10/20 Polyethylene Glycol 3350 [Miralax Powder 17 gm/Packet] 17 gm NG DAILY powd.pack 03/10/20 Sulfamethoxazole/Trimethoprim [Bactrim Ds Tablet] 1 each PO BID #12 tablet 03/10/20 Tamsulosin HCl [Flomax 0.4 mg Cap.sr] 0.4 mg PO PCSUPPER #30 cap.sr.24h 03/10/20 Allergies/Adverse Reactions: Penicillins Allergy (Severe, Verified 06/16/13 08:53) Anaphylaxis Tetanus Vaccines and Toxoid [Tetanus] Allergy (Severe, Verified 06/16/13 08:53) Anaphylaxis Physical Exam Vital Signs: Temp Pulse Resp BP Pulse Ox 98.0 F 92 15 158/78 H 98 04/27/20 13:21 04/27/20 13:21 04/27/20 21:13 04/27/20 21:13 04/27/20 21:13 Intake & Output 04/26/20 04/27/20 04/28/20 06:59 06:59 06:59 Weight 93.894 kg General appearance: PRESENT: disheveled, mild distress, morbidly obese, other - Patient is somewhat confused and unable to provide a history, he is very forgetful and has no recollection of the events which occurred in the past few days Head exam: PRESENT: atraumatic Eye exam: PRESENT: EOMI Ear exam: PRESENT: normal external ear exam Mouth exam: PRESENT: dry mucosa, neck supple Teeth exam: PRESENT: poor dentation Neck exam: PRESENT: full ROM Respiratory exam: PRESENT: clear to auscultation anshul, rhonchi Cardiovascular exam: PRESENT: irregular rhythm, RRR Vascular exam: PRESENT: normal capillary refill GI/Abdominal exam: PRESENT: normal bowel sounds, soft, other - Not tender, slightly distended, well-healing midline laparotomy incision Rectal exam: PRESENT: deferred Gentrourinary exam: PRESENT: other - Food Extremities exam: PRESENT: full ROM - Wrist Musculoskeletal exam: PRESENT: full ROM Neurological exam: PRESENT: alert, awake, CN II-XII grossly intact Psychiatric exam: PRESENT: depressed, other - Confused, poor recollection of events Focused psych exam: PRESENT: restlessness Skin exam: PRESENT: warm Results Laboratory Results: 04/27/20 13:51 04/27/20 13:51 04/27/20 04/27/20 04/27/20 13:51 13:51 13:51 WBC 11.3 H RBC 3.13 L Hgb 9.1 L Hct 28.1 L MCV 90 MCH 29.0 MCHC 32.3 RDW 15.4 H Plt Count 276 Seg Neutrophils % 70.2 Sodium 130.9 L Potassium 3.7 Chloride 95 L Carbon Dioxide 27 Anion Gap 9 BUN 18 Creatinine 0.73 Est GFR ( Amer) > 60 Glucose 96 Lactic Acid 1.1 Calcium 9.8 Total Bilirubin 1.2 AST 30 Alkaline Phosphatase 434 H Total Protein 7.0 Albumin 3.4 L Urine Color Urine Appearance Urine pH Ur Specific [employer] Urine Protein Urine Glucose (UA) Urine Ketones Urine Blood Urine Nitrite Ur Leukocyte Esterase Urine WBC (Auto) Urine RBC (Auto) 04/27/20 17:00 WBC RBC Hgb Hct MCV MCH MCHC RDW Plt Count Seg Neutrophils % Sodium Potassium Chloride Carbon Dioxide Anion Gap BUN Creatinine Est GFR ( Amer) Glucose Lactic Acid Calcium Total Bilirubin AST Alkaline Phosphatase Total Protein Albumin Urine Color YELLOW Urine Appearance CLEAR Urine pH 5.0 Ur Specific [employer] 1.016 Urine Protein NEGATIVE Urine Glucose (UA) NEGATIVE Urine Ketones TRACE H Urine Blood NEGATIVE Urine Nitrite NEGATIVE Ur Leukocyte Esterase NEGATIVE Urine WBC (Auto) 1 Urine RBC (Auto) 1 Impressions: Abdomen/Pelvis CT 04/27/20 17:32 IMPRESSION: There is prominence of the small bowel with stranding seen at the right mid mesentery and a likely transition point at the right lower quadrant of the abdomen. This may be near the anastomosis site or more centrally. This could represent evidence of an ileus or developing small bowel obstruction. There are multiple nodules at the right lung base which are predominantly subcentimeter. There is a pleural-based nodule measuring at least 2.0 cm. This is concerning for malignancy. There are patchy lytic changes within the bones concerning for metastatic disease. Assessment & Plan - Diagnosis (1) Therapeutic opioid induced constipation Is this a current diagnosis for this admission?: Yes (2) Partial small bowel obstruction Is this a current diagnosis for this admission?: Yes (3) Metastatic lung cancer (metastasis from lung to other site) Qualifiers: Laterality: unspecified laterality Qualified Code(s): C34.90 - Malignant ne oplasm of unspecified part of unspecified bronchus or lung - Plan Summary Plan Summary: Assessment: By review of the symptoms, physical exam, and CT scan findings I do not believe the patient suffers from an acute small bowel obstruction. Rather, I believe the patient suffers either from opioid induced constipation versus chronic partial mechanical small bowel obstruction due to narrowing of the bowel which is worsened by the use of opioids Remaining blood work within normal limits Atrial fibrillation Stage IV lung cancer with bone, brain, intraperitoneal metastasis Opioid dependent Plan: No acute general surgery intervention at this time I recommend that the patient receive either oral cathartics such as magnesium citrate or enemas such as tap water enema versus Fleet enemas in the attempt to stimulate intestine However, occasionally due to the chronic use of narcotics patients do not respond to the above measures I will follow the patient 1 more day to monitor the resolution of his constipation
[2020-04-27] MEDS: ONDANSETRON HCL INJ/PF 4 MG/2 ML SDV IV PRN (23:34)
[2020-04-27] MEDS: ENOXAPARIN SODIUM INJ 100 MG/1 ML DISP.SYRIN SUBCUT SCH (23:35)
[2020-04-27] MEDS: METOCLOPRAMIDE HCL 10 MG TABLET PO SCH (23:35)
[2020-04-27] MEDS: MORPHINE SULFATE IR 15 MG TABLET PO PRN (23:35)
[2020-04-28] MEDS: MORPHINE SULFATE SR 30 MG TABLET PO SCH ×3 (00:23→22:02)
--- NOTE | 2020-04-28 04:10 | PDOC H&P ---
History of Present Illness Admission Date/PCP: 04/27/2020 22:22 LALA MCCRARY Patient complains of: Abdominal pain History of Present Illness: EDINSON BLOCK is a 69 year old male who presented to the emergency room with a one-week history of abdominal pain. He admits gradually worsening generalized crampy/pressure abdominal pain over the course of the last week becoming severe today. Pain has been accompanied by episodic nausea with vomiting and has been associated with constipation. He denies other associated or accompanying signs and symptoms. He admits prior similar symptoms with his recent small bowel obstruction. He is taking narcotic pain medication for control of his stage IV lung cancer pain symptoms. He has not identified any additional aggravating or ameliorating factors for his abdominal pain. In the emergency room he was found to have an early small bowel obstruction versus ileus which clinically resolved after the oral contrast given for the CT scan. He was also noted to have atrial fibrillation with a rapid ventricular response in the 140s. Patient was subsequently admitted hospital for further evaluation and treatment after being evaluated by the surgicalist service who plans to follow the patient. 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 Denies: Hemorrhagic CVA, Ischemic CVA, Seizures Endocrine Medical History: Denies: Diabetes Mellitus Type 1, Diabetes Mellitus Type 2, Hyperthyroidism, Hypothyroidism Renal/ Medical History: Reports: Other - Benign prostatic hyperplasia Denies: Chronic Kidney Disease, Nephrolithiasis Malignancy Medical History: Reports: Lung Cancer GI Medical History: Reports: Gastroesophageal Reflux Disease Denies: Cirrhosis, Hepatitis, Peptic Ulcer Disease Musculoskeltal Medical History: Denies: Arthritis, Gout Skin Medical History: Denies: Eczema, Psoriasis Psychiatric Medical History: Denies: Alcohol Dependency, Substance Abuse, Tobacco Dependency Traumatic Medical History: Reports: None Hematology: Denies: Anemia, Bleeding Tendencies Infectious Medical History: Reports: None Past Surgical History Past Surgical History: Reports: Appendectomy, Cardiac Catheterization - ablasion for rapid rate atrial fibrillation February 2014, Cholecystectomy - Cholecystectomy complicated requiring liver resection., Other - Right hemicolectomy Social History Information Source: Patient Lives with: Spouse/Significant other Smoking Status: Former Smoker Electronic Cigarette use?: No Frequency of Alcohol Use: None Hx Recreational Drug Use: No Drugs: None Hx Prescription Drug Abuse: No - Advance Directive Resuscitation Status: Full Code Surrogate healthcare decision maker:: Brady Emily Family History Family History: CAD. denies: DM, Hypertension, Malignancy Parental Family History Reviewed: Yes Children Family History Reviewed: No Sibling(s) Family History Reviewed.: Yes Medication/Allergy Home Medications: Furosemide [Lasix 40 mg Tablet] 40 mg PO QAM #30 tablet 06/20/13 Lisinopril [Prinivil 10 mg Tablet] 10 mg PO DAILY #30 tablet 06/20/13 Carvedilol [Coreg 12.5 mg Tablet] 12.5 mg PO Q12 10/30/14 Montelukast Sodium [Singulair 10 mg Tablet] 10 mg PO QHS #30 tablet 11/03/14 Aspirin [Ecotrin 81 mg EC Tablet] 81 mg PO DAILY 02/21/20 Atorvastatin Calcium [Lipitor 20 mg Tablet] 20 mg PO QHS 02/21/20 Cyanocobalamin (Vitamin B-12) [Vitamin B-12 1000 mcg Tablet] 2,000 mcg PO BID 02/21/20 Flecainide Acetate [Tambocor 100 mg Tablet] 100 mg PO DAILY 02/21/20 [place]-3 Fatty Acids/Fish Oil [[place] 3 Fish Oil Softgel] 1 each PO BID 02/21/20 Acetaminophen [Tylenol 650 mg Supp] 650 mg HI Q4HP PRN supp.rect 03/10/20 Docusate Sodium [Colace 100 mg Capsule] 200 mg PO DAILY capsule 03/10/20 Fluticasone/Umeclidin/Vilanter [Trelegy 100-62.5-25 Mcg Ellipta 14 Dose/Dpi] 1 inh IH DAILY #1 inhaler 03/10/20 Metronidazole 500 mg PO BID #12 tablet 03/10/20 Oxycodone HCl [Oxycodone HCl ER] 10 mg PO Q12 #14 tab.er.12h 03/10/20 Oxycodone HCl/Acetaminophen [Percocet 5-325 mg Tablet] 1 tab PO Q6HP PRN #15 tab 03/10/20 Polyethylene Glycol 3350 [Miralax Powder 17 gm/Packet] 17 gm NG DAILY powd.pack 03/10/20 Sulfamethoxazole/Trimethoprim [Bactrim Ds Tablet] 1 each PO BID #12 tablet 03/10/20 Tamsulosin HCl [Flomax 0.4 mg Cap.sr] 0.4 mg PO PCSUPPER #30 cap.sr.24h 03/10/20 Allergies/Adverse Reactions: Penicillins Allergy (Severe, Verified 06/16/13 08:53) Anaphylaxis Tetanus Vaccines and Toxoid [Tetanus] Allergy (Severe, Verified 06/16/13 08:53) Anaphylaxis Review of Systems Constitutional: ABSENT: chills, fever(s) Eyes: ABSENT: visual disturbances, other - Eye pain Ears: ABSENT: hearing changes, other - Ear pain Nose, Mouth, and Throat: ABSENT: headache(s), sore throat Cardiovascular: ABSENT: chest pain, palpitations Respiratory: ABSENT: cough, dyspnea Gastrointestinal: PRESENT: as per HPI, abdominal pain, constipation, nausea, vomiting. ABSENT: diarrhea, hematemesis Genitourinary: ABSENT: dysuria, hematuria Musculoskeletal: ABSENT: back pain, joint swelling Integumentary: ABSENT: pruritus, rash Neurological: ABSENT: confusion, convulsions, focal weakness, memory loss, syncope Psychiatric: ABSENT: anxiety, depression Endocrine: ABSENT: cold intolerance, heat intolerance Hematologic/Lymphatic: ABSENT: easy bleeding, easy bruising Allergic/Immunologic: ABSENT: seasonal rhinorrhea Physical Exam Vital Signs: Temp Pulse Resp BP Pulse Ox 98.0 F 92 15 158/78 H 98 04/27/20 13:21 04/27/20 13:21 04/27/20 21:13 04/27/20 21:13 04/27/20 21:13 Intake & Output 04/25/20 04/26/20 04/27/20 23:59 23:59 23:59 Weight 93.894 kg General appearance: PRESENT: cooperative, mild distress - Secondary to abdominal discomfort Head exam: PRESENT: atraumatic, normocephalic Eye exam: PRESENT: conjunctiva pink. ABSENT: conjunctival injection, scleral icterus Ear exam: PRESENT: normal external ear exam. ABSENT: bleeding, drainage Mouth exam: PRESENT: dry mucosa, neck supple Neck exam: ABSENT: thyromegaly, tracheal deviation Respiratory exam: PRESENT: clear to auscultation anshul, symmetrical, unlabored Cardiovascular exam: PRESENT: irregular rhythm - Irregularly irregular rate and rhythm, tachycardia - 140s. ABSENT: clicks, gallop, rubs Pulses: PRESENT: normal radial pulses, normal dorsalis pedis pul Vascular exam: PRESENT: normal capillary refill. ABSENT: pallor GI/Abdominal exam: PRESENT: distended - Moderate gaseous distention, hypoactive bowel sounds, tenderness - Mild generalized tenderness to palpation Rectal exam: PRESENT: deferred Extremities exam: ABSENT: joint swelling, pedal edema Musculoskeletal exam: ABSENT: deformity, dislocation Neurological exam: PRESENT: alert, oriented to person, oriented to place, oriented to time, oriented to situation, CN II-XII grossly intact. ABSENT: motor sensory deficit Psychiatric exam: PRESENT: appropriate affect, normal mood Skin exam: PRESENT: dry, intact, warm. ABSENT: jaundice, rash, urticaria Results Laboratory Results: 04/27/20 13:51 04/27/20 13:51 04/27/20 04/27/20 04/27/20 13:51 13:51 13:51 WBC 11.3 H RBC 3.13 L Hgb 9.1 L Hct 28.1 L MCV 90 MCH 29.0 MCHC 32.3 RDW 15.4 H Plt Count 276 Seg Neutrophils % 70.2 Sodium 130.9 L Potassium 3.7 Chloride 95 L Carbon Dioxide 27 Anion Gap 9 BUN 18 Creatinine 0.73 Est GFR ( Amer) > 60 Glucose 96 Lactic Acid 1.1 Calcium 9.8 Total Bilirubin 1.2 AST 30 Alkaline Phosphatase 434 H Total Protein 7.0 Albumin 3.4 L Urine Color Urine Appearance Urine pH Ur Specific [place] Urine Protein Urine Glucose (UA) Urine Ketones Urine Blood Urine Nitrite Ur Leukocyte Esterase Urine WBC (Auto) Urine RBC (Auto) 04/27/20 17:00 WBC RBC Hgb Hct MCV MCH MCHC RDW Plt Count Seg Neutrophils % Sodium Potassium Chloride Carbon Dioxide Anion Gap BUN Creatinine Est GFR ( Amer) Glucose Lactic Acid Calcium Total Bilirubin AST Alkaline Phosphatase Total Protein Albumin Urine Color YELLOW Urine Appearance CLEAR Urine pH 5.0 Ur Specific [place] 1.016 Urine Protein NEGATIVE Urine Glucose (UA) NEGATIVE Urine Ketones TRACE H Urine Blood NEGATIVE Urine Nitrite NEGATIVE Ur Leukocyte Esterase NEGATIVE Urine WBC (Auto) 1 Urine RBC (Auto) 1 Impressions: Abdomen/Pelvis CT 04/27/20 17:32 IMPRESSION: There is prominence of the small bowel with stranding seen at the right mid mesentery and a likely transition point at the right lower quadrant of the abdomen. This may be near the anastomosis site or more centrally. This could represent evidence of an ileus or developing small bowel obstruction. There are multiple nodules at the right lung base which are predominantly subcentimeter. There is a pleural-based nodule measuring at least 2.0 cm. This is concerning for malignancy. There are patchy lytic changes within the bones concerning for metastatic disease. Assessment and Plan - Diagnosis (1) Atrial fibrillation with RVR Is this a current diagnosis for this admission?: Yes (2) Partial obstruction of small intestine Is this a current diagnosis for this admission?: Yes (3) Abdominal pain Qualifiers: Abdominal location: generalized Qualified Code(s): R10.84 - Generalized abdominal pain Is this a current diagnosis for this admission?: Yes (4) Narcotic bowel syndrome Is this a current diagnosis for this admission?: Yes (5) Metastatic lung cancer (metastasis from lung to other site) Qualifiers: Laterality: unspecified laterality Qualified Code(s): C34.90 - Malignant neoplasm of unspecified part of unspecified bronchus or lung Is this a current diagnosis for this admission?: Yes - Plan Summary Summary: Patient will be admitted to the medical floor he will receive routine supportive and symptomatic cares. He will be given soapsuds enemas and will also receive magnesium citrate orally to try to alleviate his constipation. He will be followed by the surgicalist service in consultation. He will receive Ativan 1 mg IV every 4 hours as needed for anxiety or restlessness. His oral pain control will be changed from OxyContin to MS Contin 30 mg every 12 hours and he will also receive MSIR 15 mg every 4 hours as needed for breakthrough pain. He will be continued on his usual medications, as appropriate, once his medication list has been verified and reconciled. CBCs, metabolic profiles and additional laboratory and/or radiographic evaluations will be obtained as needed. Patient will be treated with a Cardizem infusion after a bolus dose as well as initia tion of Lovenox therapy for prevention of atrial fibrillation induced embolization. Patient will be on a cardiac diet. - Time Time Spent with patient: 15-24 minutes Medications reviewed and adjusted accordingly: Yes Anticipated Discharge Disposition: Home with Home Health Anticipated Discharge Timeframe: within 72 hours - Inpatient Certification Based on my medical assessment, after consideration of the patient's comorbidities, presenting symptoms, or acuity I expect that the services needed warrant INPATIENT care.: Yes I certify that my determination is in accordance with my understanding of Medicare's requirements for reasonable and necessary INPATIENT services [42 CFR 412.3e].: Yes Medical Necessity: Need Close Monitoring Due to Risk of Patient Decompensation, Need For Continuous Telemetry Monitoring
[2020-04-28] MEDS: PANTOPRAZOLE SODIUM 40 MG TABLET.DR PO SCH ×2 (05:29→18:33)
[2020-04-28 05:34] LABS: HEMATOCRIT 29.2 % (37.9-51.0); HEMOGLOBIN 9.6 g/dL (13.5-17.0); MEAN CORPUSCULAR HGB CONC 32.7 g/dL (32.0-36.0); MEAN CORPUSCULAR VOLUME 89 fl (80-97); PLATELET COUNT 281 10^3/uL (150-450); RED CELL DISTRIBUTION WIDTH 15.3 % (11.5-14.0); WHITE BLOOD COUNT 12.8 10^3/uL (4.0-10.5)
[2020-04-28 05:55] LABS: ALBUMIN 3.2 g/dL (3.5-5.0); ALKALINE PHOSPHATASE 402 U/L (38-126); ANION GAP 9 (5-19); ASPARTATE AMINO TRANSFERASE 32 U/L (17-59); BILIRUBIN,DIRECT 0.5 mg/dL (0.0-0.4); BLOOD UREA NITROGEN 16 mg/dL (7-20); CALCIUM 9.7 mg/dL (8.4-10.2); CARBON DIOXIDE 30 mmol/L (22-30); CHLORIDE 94 mmol/L (98-107); GLUCOSE 84 mg/dL (75-110); POTASSIUM 3.6 mmol/L (3.6-5.0); TOTAL PROTEIN 6.8 g/dL (6.3-8.2)
[2020-04-28] MEDS: MORPHINE SULFATE IR 15 MG TABLET PO PRN ×3 (06:15→23:47)
[2020-04-28] MEDS: ONDANSETRON HCL INJ/PF 4 MG/2 ML SDV IV PRN (06:18)
[2020-04-28 06:44] LABS: APPEARANCE,URINE CLEAR; BILIRUBIN,URINE NEGATIVE (NEGATIVE); COLOR,URINE YELLOW; GLUCOSE, URINE NEGATIVE (NEGATIVE); KETONES,URINE 20 mg/dL (NEGATIVE); LEUKOCYTE ESTERASE,URINE NEGATIVE (NEGATIVE); NITRITE,URINE NEGATIVE (NEGATIVE); PROTEIN,URINE NEGATIVE (NEGATIVE); URINE SPECIFIC GRAVITY 1.019
[2020-04-28] MEDS: DOCUSATE SODIUM 100 MG/10 ML UDC PO SCH ×2 (09:53→18:33)
[2020-04-28] MEDS: ENOXAPARIN SODIUM INJ 100 MG/1 ML DISP.SYRIN SUBCUT SCH (09:54)
[2020-04-28] MEDS: MAGNESIUM CITRATE 296 ML BOTTLE PO SCH (09:54)
[2020-04-28] MEDS: METOCLOPRAMIDE HCL 10 MG TABLET PO SCH ×4 (09:54→22:02)
--- NOTE | 2020-04-28 13:35 | PDOC PROGRESS REPORT ---
Subjective Progress Note for:: 04/28/20 Subjective:: Patient comfortable, more awake, responds appropriately to questions and has had a stool this am; he reports flatus Reason For Visit: ATRIAL FIBRILLATION WITH RAPID VENTRICULAR Physical Exam Vital Signs: Temp Pulse Resp BP Pulse Ox 97.3 F 96 13 135/70 H 97 04/28/20 11:07 04/28/20 11:07 04/28/20 11:07 04/28/20 11:07 04/28/20 11:07 Intake & Output 04/27/20 04/28/20 04/29/20 06:59 06:59 06:59 Intake Total 1000 Output Total 200 Balance 800 Weight 92.1 kg General appearance: PRESENT: no acute distress, other - Lightly obtunded but arousable and answers appropriately to questions Head exam: PRESENT: atraumatic Respiratory exam: PRESENT: clear to auscultation anshul Cardiovascular exam: PRESENT: irregular rhythm GI/Abdominal exam: PRESENT: normal bowel sounds, soft, other - Obese, not tender, Results Laboratory Results: 04/28/20 04:27 04/28/20 04:27 04/27/20 04/27/20 04/27/20 13:51 13:51 13:51 WBC 11.3 H RBC 3.13 L Hgb 9.1 L Hct 28.1 L MCV 90 MCH 29.0 MCHC 32.3 RDW 15.4 H Plt Count 276 Seg Neutrophils % 70.2 Sodium 130.9 L Potassium 3.7 Chloride 95 L Carbon Dioxide 27 Anion Gap 9 BUN 18 Creatinine 0.73 Est GFR ( Amer) > 60 Glucose 96 Lactic Acid 1.1 Calcium 9.8 Magnesium Total Bilirubin 1.2 AST 30 Alkaline Phosphatase 434 H Total Protein 7.0 Albumin 3.4 L TSH Urine Color Urine Appearance Urine pH Ur Specific [place] Urine Protein Urine Glucose (UA) Urine Ketones Urine Blood Urine Nitrite Ur Leukocyte Esterase Urine WBC (Auto) Urine RBC (Auto) 04/27/20 04/28/20 04/28/20 17:00 04:26 04:27 WBC 12.8 H RBC 3.30 L Hgb 9.6 L Hct 29.2 L MCV 89 MCH 29.0 MCHC 32.7 RDW 15.3 H Plt Count 281 Seg Neutrophils % Sodium Potassium Chloride Carbon Dioxide Anion Gap BUN Creatinine Est GFR ( Amer) Glucose Lactic Acid Calcium Magnesium Total Bilirubin AST Alkaline Phosphatase Total Protein Albumin TSH 3.82 Urine Color YELLOW Urine Appearance CLEAR Urine pH 5.0 Ur Specific [place] 1.016 Urine Protein NEGATIVE Urine Glucose (UA) NEGATIVE Urine Ketones TRACE H Urine Blood NEGATIVE Urine Nitrite NEGATIVE Ur Leukocyte Esterase NEGATIVE Urine WBC (Auto) 1 Urine RBC (Auto) 1 04/28/20 04/28/20 04:27 05:58 WBC RBC Hgb Hct MCV MCH MCHC RDW Plt Count Seg Neutrophils % Sodium 133.4 L Potassium 3.6 Chloride 94 L Carbon Dioxide 30 Anion Gap 9 BUN 16 Creatinine 0.72 Est GFR ( Amer) > 60 Glucose 84 Lactic Acid Calcium 9.7 Magnesium 1.9 Total Bilirubin 1.0 AST 32 Alkaline Phosphatase 402 H Total Protein 6.8 Albumin 3.2 L TSH Urine Color YELLOW Urine Appearance CLEAR Urine pH 5.0 Ur Specific [place] 1.019 Urine Protein NEGATIVE Urine Glucose (UA) NEGATIVE Urine Ketones 20 H Urine Blood SMALL H Urine Nitrite NEGATIVE Ur Leukocyte Esterase NEGATIVE Urine WBC (Auto) 1 Urine RBC (Auto) Impressions: Abdomen/Pelvis CT 04/27/20 17:32 IMPRESSION: There is prominence of the small bowel with stranding seen at the right mid mesentery and a likely transition point at the right lower quadrant of the abdomen. This may be near the anastomosis site or more centrally. This could represent evidence of an ileus or developing small bowel obstruction. There are multiple nodules at the right lung base which are predominantly subcentimeter. There is a pleural-based nodule measuring at least 2.0 cm. This is concerning for malignancy. There are patchy lytic changes within the bones concerning for metastatic disease. Assessment & Plan - Diagnosis (1) Therapeutic opioid induced constipation Is this a current diagnosis for this admission?: Yes (2) Partial small bowel obstruction Is this a current diagnosis for this admission?: Yes (3) Metastatic lung cancer (metastasis from lung to other site) Qualifiers: Laterality: unspecified laterality Qualified Code(s): C34.90 - Malignant neoplasm of unspecified part of unspecified bronchus or lung - Time Anticipated Discharge Disposition: Home, Self Care Anticipated Discharge Timeframe: As per primary care physician - Plan Summary Plan Summary: Assessment: Hospital day #2 Patient mental status has much improved since his oral morphine dose has been de creased Patient bowel function has returned, he reports one stool this morning and passing flatus Plan: I am recommending to continue the bowel regimen with Nexium citrate daily and a liquid diet until his bowel function normalizes I am recommending to decrease as much as possible the dose of oral narcotics to avoid opioid-induced constipation The patient should be on a fiber diet as well as stool softeners to prevent constipation I am signing off. Please call me back if the patient clinical condition deteriorates or with questions.
--- NOTE | 2020-04-28 14:15 | EKG REPORT ---
SEVERITY:- ABNORMAL ECG - ATRIAL FIBRILLATION PROBABLE ANTEROSEPTAL INFARCT, OLD ST DEPRESSION, PROBABLY RATE RELATED PROLONGED QT INTERVAL : Confirmed by: Raghu Schilling 28-Apr-2020 14:14:12
[2020-04-28] MEDS ORDERED: ALBUTEROL SULFATE HFA (90 MCG/PUFF) 8 GM MDI (1 MDI/ER DISP) IH PRN (19:37)
--- NOTE | 2020-04-28 19:49 | PDOC PROGRESS REPORT ---
Subjective Progress Note for:: 04/28/20 Subjective:: Patient was seen and examined at bedside. Abdominal pain less but he continues to vomit. Denies any chest pain shortness of breath. Patient is a bit drowsy but conversant Reason For Visit: ATRIAL FIBRILLATION WITH RAPID VENTRICULAR Physical Exam Vital Signs: Temp Pulse Resp BP Pulse Ox 97.9 F 93 17 122/65 93 04/28/20 16:21 04/28/20 16:21 04/28/20 16:21 04/28/20 16:21 04/28/20 16:21 Intake & Output 04/27/20 04/28/20 04/29/20 06:59 06:59 06:59 Intake Total 1000 Output Total 200 Balance 800 Weight 92.1 kg General appearance: PRESENT: no acute distress, cooperative, other - He is very drowsy but arousable, conversant but frequently fades in and out Head exam: PRESENT: atraumatic, normocephalic Eye exam: PRESENT: EOMI, PERRLA Mouth exam: PRESENT: moist Neck exam: PRESENT: full ROM Respiratory exam: PRESENT: clear to auscultation anshul, symmetrical, unlabored Cardiovascular exam: PRESENT: RRR, +S1, +S2 - Normal Vascular exam: PRESENT: normal capillary refill GI/Abdominal exam: PRESENT: diminished bowel sounds, distended, soft, other. ABSENT: guarding, rebound, tenderness Neurological exam: PRESENT: awake, other - Awake but not fully alert forgetful Results Laboratory Results: 04/28/20 04:27 04/28/20 04:27 04/28/20 04/28/20 04/28/20 04:26 04:27 04:27 WBC 12.8 H RBC 3.30 L Hgb 9.6 L Hct 29.2 L MCV 89 MCH 29.0 MCHC 32.7 RDW 15.3 H Plt Count 281 Sodium 133.4 L Potassium 3.6 Chloride 94 L Carbon Dioxide 30 Anion Gap 9 BUN 16 Creatinine 0.72 Est GFR ( Amer) > 60 Glucose 84 Calcium 9.7 Magnesium 1.9 Total Bilirubin 1.0 AST 32 Alkaline Phosphatase 402 H Total Protein 6.8 Albumin 3.2 L TSH 3.82 Urine Color Urine Appearance Urine pH Ur Specific [place] Urine Protein Urine Glucose (UA) Urine Ketones Urine Blood Urine Nitrite Ur Leukocyte Esterase Urine WBC (Auto) 04/28/20 05:58 WBC RBC Hgb Hct MCV MCH MCHC RDW Plt Count Sodium Potassium Chloride Carbon Dioxide Anion Gap BUN Creatinine Est GFR ( Amer) Glucose Calcium Magnesium Total Bilirubin AST Alkaline Phosphatase Total Protein Albumin TSH Urine Color YELLOW Urine Appearance CLEAR Urine pH 5.0 Ur Specific [place] 1.019 Urine Protein NEGATIVE Urine Glucose (UA) NEGATIVE Urine Ketones 20 H Urine Blood SMALL H Urine Nitrite NEGATIVE Ur Leukocyte Esterase NEGATIVE Urine WBC (Auto) 1 Impressions: Abdomen/Pelvis CT 04/27/20 17:32 IMPRESSION: There is prominence of the small bowel with stranding seen at the right mid mesentery and a likely transition point at the right lower quadrant of the abdomen. This may be near the anastomosis site or more centrally. This could represent evidence of an ileus or developing small bowel obstruction. There are multiple nodules at the right lung base which are predominantly subcentimeter. There is a pleural-based nodule measuring at least 2.0 cm. This is concerning for malignancy. There are patchy lytic changes within the bones concerning for metastatic disease. Assessment and Plan - Diagnosis (1) Abdominal pain Qualifiers: Abdominal location: generalized Qualified Code(s): R10.84 - Generalized abdominal pain Is this a current diagnosis for this admission?: Yes Plan: -Came in with abdominal pain 1 week duration -He has a history of chronic opioid use secondary to stage IV lung cancer -CT scan of the abdomen done in the ED showed ileus versus developing small bowel obstruction -Likely able to move his bowels after enema and mag citrate -Likely secondary to opioid induced -Urinary following recommended to continue magnesium citrate and enema. ok clear liquid diet -Continue to monitor (2) Atrial fibrillation with RVR Is this a current diagnosis for this admission?: Yes Plan: -Known history of A. fib came in and RVR -Started on Cardizem drip. Rate improved -Doomed his oral medications flecainide and apixaban now that he is on a clear liquid diet (3) Constipation Qualifiers: Constipation type: drug induced constipation Qualified Code(s): K59.03 - Drug induced constipation Is this a current diagnosis for this admission?: Yes Plan: -Patient is on morphine at home secondary to stage IV lung cancer -According to his he would have a bowel movement every 4 to 5 days -Was on docusate and senna at home -We will continue mag citrate and enema during this admission -Consider methyl naltrexone if he does not improve (4) Metastatic lung cancer (metastasis from lung to other site) Qualifiers: Laterality: unspecified laterality Qualified Code(s): C34.90 - Malignant neoplasm of unspecified part of unspecified bronchus or lung Is this a current diagnosis for this admission?: Yes Plan: -Dr. Chandler is following him outpatient. According to the he is still undergoing treatment for stage IV metastatic lung cancer -We will continue his pain medications as he needs this for metastatic lung cancer (5) Leukocytosis Qualifiers: Leukocytosis type: unspecified Qualified Code(s): D72.829 - Elevated white blood cell count, unspecified Is this a current diagnosis for this admission?: Yes Plan: -Mild 12.8, likely reactive from vomiting -No indication for antibiotics for now we will continue to monitor - Plan Summary Summary: . - Time Time Spent with patient: 15-24 minutes Anticipated Discharge Disposition: Home, Self Care Anticipated Discharge Timeframe: To be determined - Inpatient Certification Based on my medical assessment, after consideration of the patient's comorbidities, presenting symptoms, or acuity I expect that the services needed warrant INPATIENT care.: Yes I certify that my determination is in accordance with my understanding of Medicare's requirements for reasonable and necessary INPATIENT services [42 CFR 412.3e].: Yes Medical Necessity: Risk of Complication if Not Cared For in Hospital
[2020-04-28] MEDS: RINGERS SOLUTION,LACTATED 1,000 ML IV PRN (22:06)
[2020-04-29] MEDS: LORAZEPAM INJ 2 MG/1 ML VIAL IV PRN ×2 (00:45→21:37)
[2020-04-29] MEDS: PANTOPRAZOLE SODIUM 40 MG TABLET.DR PO SCH ×2 (05:40→17:29)
[2020-04-29] MEDS ORDERED: PANTOPRAZOLE SODIUM 20 MG TABLET.DR PO SCH (06:00)
[2020-04-29] MEDS ORDERED: ALBUTEROL SULFATE 0.083% NEB 2.5 MG/3 ML AMPUL NEB PRN (08:52)
[2020-04-29] MEDS: METOCLOPRAMIDE HCL 10 MG TABLET PO SCH ×3 (09:07→16:00)
[2020-04-29] MEDS: RINGERS SOLUTION,LACTATED 1,000 ML IV PRN ×2 (09:08→20:12)
[2020-04-29 09:36] LABS: ALBUMIN 3.3 g/dL (3.5-5.0); ALKALINE PHOSPHATASE 408 U/L (38-126); ANION GAP 8 (5-19); ASPARTATE AMINO TRANSFERASE 28 U/L (17-59); BILIRUBIN,DIRECT 0.2 mg/dL (0.0-0.4); BILIRUBIN,TOTAL 0.8 mg/dL (0.2-1.3); BLOOD UREA NITROGEN 11 mg/dL (7-20); CALCIUM 9.5 mg/dL (8.4-10.2); CARBON DIOXIDE 31 mmol/L (22-30); CHLORIDE 94 mmol/L (98-107); GLUCOSE 108 mg/dL (75-110); POTASSIUM 3.3 mmol/L (3.6-5.0); TOTAL PROTEIN 7.1 g/dL (6.3-8.2)
[2020-04-29] MEDS ORDERED: APIXABAN 5 MG TABLET PO SCH (10:00)
[2020-04-29] MEDS ORDERED: ASPIRIN 81 MG TABLET, ENT COATED PO SCH (10:00)
[2020-04-29] MEDS ORDERED: LISINOPRIL 10 MG TABLET PO SCH (10:00)
[2020-04-29] MEDS ORDERED: FLECAINIDE ACETATE 100 MG TABLET PO SCH (10:00)
[2020-04-29] MEDS ORDERED: CARVEDILOL 12.5 MG TABLET PO SCH (10:00)
[2020-04-29] MEDS: DOCUSATE SODIUM 100 MG/10 ML UDC PO SCH (11:38)
[2020-04-29] MEDS: MAGNESIUM CITRATE 296 ML BOTTLE PO SCH (11:39)
[2020-04-29] MEDS: MORPHINE SULFATE SR 30 MG TABLET PO SCH (11:39)
[2020-04-29] MEDS: ONDANSETRON HCL INJ/PF 4 MG/2 ML SDV IV PRN ×2 (12:46→16:23)
[2020-04-29] MEDS: POTASSI CL 20 MEQ/50 ML RIDER 20 MEQ/50 ML RTUPB IV SCH ×2 (13:31→16:01)
[2020-04-29] MEDS ORDERED: PHARMACY COMMUNICATION ORDER MC NR (14:30)
[2020-04-29] MEDS ORDERED: ACETAMINOPHEN 325 MG TABLET NG PRN (14:30)
[2020-04-29] MEDS ORDERED: MAG HYDROX/AL HYDROX/SIMETH SUSP 30 ML UDCUP NG PRN (17:00)
[2020-04-29] MEDS ORDERED: GUAIFENESIN SYRP 200 MG/10 ML UDC NG PRN (17:00)
[2020-04-29] MEDS ORDERED: MELATONIN 5 MG TABLET NG PRN (17:00)
[2020-04-29] MEDS ORDERED: MORPHINE SULFATE IR 15 MG TABLET NG PRN (17:00)
[2020-04-29] MEDS ORDERED: SODIUM CHLORIDE NASAL SPRAY 44 ML NASL PRN (17:56)
[2020-04-29] MEDS ORDERED: HYDROMORPHONE HCL INJ/PF 2 MG/ML AMPULE IV PRN (18:21)
--- NOTE | 2020-04-29 18:55 | RADIOLOGY REPORT (SQ) ---
EXAM DESCRIPTION: KUB/ABDOMEN (SINGLE VIEW) IMAGES COMPLETED DATE/TIME: 04/29/2020 3:46 pm REASON FOR STUDY: Check Placement of NG Tube COMPARISON: None. NUMBER OF VIEWS: One view. TECHNIQUE: Supine radiographic image of the abdomen acquired. LIMITATIONS: None. FINDINGS: BOWEL GAS PATTERN: Gas-filled stacked loops of small bowel and moderate distention of the gastric lumen. CALCIFICATIONS: No suspicious calcifications. SOFT TISSUES: No gross mass or suggestion of organomegaly. HARDWARE: Esophagogastric tube tip and side-hole are below the diaphragm within the stomach. BONES: No acute fracture. No worrisome bone lesions. OTHER: No other significant finding. IMPRESSION: Esophagogastric tube tip and side-hole are within the stomach. Stacked gas-filled loops of small bowel suggestive of bowel obstruction versus ileus. TECHNICAL DOCUMENTATION: JOB ID: [id number] 2010 [employer]- All Rights Reserved Reading location - IP/workstation name: [email or web address]
--- NOTE | 2020-04-29 19:03 | PDOC PROGRESS REPORT ---
Subjective Progress Note for:: 04/29/20 Subjective:: Patient was seen and examined at bedside. He continues to vomit significant amount of greenish fluids. Minimal abdominal pain. Reason For Visit: ATRIAL FIBRILLATION WITH RAPID VENTRICULAR Physical Exam Vital Signs: Temp Pulse Resp BP Pulse Ox 97.8 F 91 13 142/72 H 94 04/29/20 15:33 04/29/20 15:33 04/29/20 15:33 04/29/20 15:33 04/29/20 15:33 Intake & Output 04/28/20 04/29/20 04/30/20 06:59 06:59 06:59 Intake Total 8183 381 6092 Output Total 200 180 Balance 962 636 3362 Weight 92.1 kg 93.8 kg General appearance: PRESENT: no acute distress Head exam: PRESENT: atraumatic, normocephalic Eye exam: PRESENT: EOMI, PERRLA Mouth exam: PRESENT: moist Neck exam: PRESENT: lymphadenopathy Respiratory exam: PRESENT: clear to auscultation anshul, symmetrical, unlabored Cardiovascular exam: PRESENT: RRR, +S1, +S2 Vascular exam: PRESENT: normal capillary refill GI/Abdominal exam: PRESENT: diminished bowel sounds, distended. ABSENT: guarding, rebound Rectal exam: PRESENT: deferred Musculoskeletal exam: PRESENT: full ROM Neurological exam: PRESENT: altered, awake Psychiatric exam: PRESENT: normal mood Results Laboratory Results: 04/28/20 04:27 04/29/20 09:05 04/29/20 09:05 Sodium 132.7 L Potassium 3.3 L Chloride 94 L Carbon Dioxide 31 H Anion Gap 8 BUN 11 Creatinine 0.69 Est GFR ( Amer) > 60 Glucose 108 Calcium 9.5 Total Bilirubin 0.8 AST 28 Alkaline Phosphatase 408 H Total Protein 7.1 Albumin 3.3 L Impressions: Abdomen/Pelvis CT 04/27/20 17:32 IMPRESSION: There is prominence of the small bowel with stranding seen at the right mid mesentery and a likely transition point at the right lower quadrant of the abdomen. This may be near the anastomosis site or more centrally. This could represent evidence of an ileus or developing small bowel obstruction. There are multiple nodules at the right lung base which are predominantly subcentimeter. There is a pleural-based nodule measuring at least 2.0 cm. This is concerning for malignancy. There are patchy lytic changes within the bones concerning for metastatic disease. Assessment and Plan - Diagnosis (1) Metastatic lung cancer (metastasis from lung to other site) Qualifiers: Laterality: unspecified laterality Qualified Code(s): C34.90 - Malignant neoplasm of unspecified part of unspecified bronchus or lung Is this a current diagnosis for this admission?: Yes Plan: -Dr. Chandler is following him outpatient. According to the he is still undergoing treatment for stage IV metastatic lung cancer -oral morphine switched to IV dilaudid. (2) Partial small bowel obstruction Is this a current diagnosis for this admission?: Yes Plan: -Came in with abdominal pain 1 week duration -He has a history of chronic opioid use secondary to stage IV lung cancer -CT scan of the abdomen done in the ED showed ileus versus developing small bowel obstruction -patient still has a lot of vomiting - discussed case with Dr. Dockery, in light if his stage IV lung cancer with brain metastases with limited life expectancy, undergoing surgery will be very high risk for him. I have discussed this with him and his . If they do decide to proceed with surgery, he would likely need to be transferred to a tertiary care center. I asked the as well if they are aware of hospice service and she said she is not. However, patient expressed that he for sure to stay home and be pain-free -NG tube placed drain to gravity (3) Abdominal pain Qualifiers: Abdominal location: generalized Qualified Code(s): R10.84 - Generalized abdominal pain Is this a current diagnosis for this admission?: Yes Plan: -Came in with abdominal pain 1 week duration - likely 2/2 bowel obstruction (4) Atrial fibrillation with RVR Is this a current diagnosis for this admission?: Yes Plan: -Known history of A. fib came in and RVR -Doomed his oral medications flecainide, carvedilol and apixaban now that he is on a clear liquid diet (5) Constipation Qualifiers: Constipation type: drug induced constipation Qualified Code(s): K59.03 - Drug induced constipation Is this a current diagnosis for this admission?: Yes (6) Leukocytosis Qualifiers: Leukocytosis type: unspecified Qualified Code(s): D72.829 - Elevated white blood cell count, unspecified Is this a current diagnosis for this admission?: Yes Plan: -Mild 12.8, likely reactive from vomiting -No indication for antibiotics for now we will continue to monitor - Plan Summary Summary: . - Time Time Spent with patient: 15-24 minutes Medications reviewed and adjusted accordingly: Yes Anticipated Discharge Disposition: Home, Self Care Anticipated Discharge Timeframe: To be determined - Inpatient Certification Medical Necessity: Need for Pain Control
[2020-04-29] MEDS: DOCUSATE SODIUM 100 MG/10 ML UDC NG SCH (20:27)
[2020-04-29] MEDS: APIXABAN 5 MG TABLET NG SCH (20:27)
[2020-04-29] MEDS: METOCLOPRAMIDE HCL 10 MG TABLET NG SCH (21:38)
[2020-04-30] MEDS: LORAZEPAM INJ 2 MG/1 ML VIAL IV PRN (04:01)
[2020-04-30] MEDS: RINGERS SOLUTION,LACTATED 1,000 ML IV PRN ×2 (05:27→15:00)
[2020-04-30 05:57] LABS: HEMATOCRIT 27.5 % (37.9-51.0); MEAN CORPUSCULAR HEMOGLOBIN 28.8 pg (27.0-33.4); MEAN CORPUSCULAR HGB CONC 32.7 g/dL (32.0-36.0); MEAN CORPUSCULAR VOLUME 88 fl (80-97); PLATELET COUNT 281 10^3/uL (150-450); RED BLOOD COUNT 3.13 10^6/uL (4.35-5.55); RED CELL DISTRIBUTION WIDTH 14.9 % (11.5-14.0); WHITE BLOOD COUNT 11.3 10^3/uL (4.0-10.5)
[2020-04-30 06:24] LABS: ALBUMIN 2.8 g/dL (3.5-5.0); ALKALINE PHOSPHATASE 357 U/L (38-126); ANION GAP 8 (5-19); ASPARTATE AMINO TRANSFERASE 26 U/L (17-59); BILIRUBIN,DIRECT 0.3 mg/dL (0.0-0.4); BILIRUBIN,TOTAL 0.8 mg/dL (0.2-1.3); BLOOD UREA NITROGEN 11 mg/dL (7-20); CARBON DIOXIDE 29 mmol/L (22-30); CHLORIDE 95 mmol/L (98-107); GLUCOSE 80 mg/dL (75-110); POTASSIUM 3.7 mmol/L (3.6-5.0); TOTAL PROTEIN 6.1 g/dL (6.3-8.2)
[2020-04-30] MEDS: PANTOPRAZOLE SODIUM 40 MG VIAL IV SCH (09:52)
[2020-04-30] MEDS: DOCUSATE SODIUM 100 MG/10 ML UDC NG SCH ×2 (09:52→18:02)
[2020-04-30] MEDS: MAGNESIUM CITRATE 296 ML BOTTLE NG SCH (09:52)
[2020-04-30] MEDS: METOCLOPRAMIDE HCL 10 MG TABLET NG SCH ×4 (09:53→22:26)
[2020-04-30] MEDS: APIXABAN 5 MG TABLET NG SCH ×2 (09:53→18:02)
[2020-04-30] MEDS: ASPIRIN 81 MG TABLET, CHEWABLE NG SCH (09:53)
[2020-04-30] MEDS: FLECAINIDE ACETATE 100 MG TABLET NG SCH (09:55)
[2020-04-30] MEDS ORDERED: LISINOPRIL 10 MG TABLET NG SCH (10:00)
[2020-04-30] MEDS ORDERED: CARVEDILOL 12.5 MG TABLET NG SCH (10:00)
--- NOTE | 2020-04-30 11:07 | CDI QUERY ---
CDI Query CDI Review: Dear Provider, Please further specify type A FIB, if possible and document in progress notes / D/C summary. PAROXYSMAL? PERSISTENT? OTHER? Thanks, Vivi Cifuentes, CDI [phone]
[2020-04-30 11:40] LABS: APPEARANCE,URINE SLIGHTLY-CLOUDY; BILIRUBIN,URINE NEGATIVE (NEGATIVE); COLOR,URINE YELLOW; GLUCOSE, URINE NEGATIVE (NEGATIVE); KETONES,URINE 20 mg/dL (NEGATIVE); LEUKOCYTE ESTERASE,URINE TRACE (NEGATIVE); NITRITE,URINE NEGATIVE (NEGATIVE); PROTEIN,URINE NEGATIVE (NEGATIVE); URINE SPECIFIC GRAVITY 1.014
[2020-04-30] MEDS: HYDROMORPHONE HCL INJ/PF 2 MG/ML AMPULE IV PRN ×2 (14:59→20:16)
--- NOTE | 2020-04-30 15:11 | PDOC PROGRESS REPORT ---
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 Imaging studies showed findings concerning for bowel obstruction. Dr. Dockery was consulted and he was given mag citrate with enema. He was able to have a bowel movement but continue to vomit repeatedly. NGT was placed 04/29 which drained billous fluid. Oral pain medications switched to IV dilaudid. Dr. Dockery signed off on the case. recommends to continue mag citrate. He does not think he will be a good candidate for surgery in light of brain mets, recent surgery and metastatic lung ca. Reason For Visit: ATRIAL FIBRILLATION WITH RAPID VENTRICULAR Physical Exam Vital Signs: Temp Pulse Resp BP Pulse Ox 97.6 F 102 H 25 H 159/71 H 96 04/30/20 11:20 04/30/20 11:20 04/30/20 11:20 04/30/20 11:20 04/30/20 11:20 Intake & Output 04/29/20 04/30/20 05/01/20 06:59 06:59 06:59 Intake Total 908 3943 Output Total 180 1325 Balance 728 2618 Weight 93.8 kg 93.7 kg 93.7 kg General appearance: PRESENT: cooperative, mild distress, other - mildly in pain Head exam: PRESENT: atraumatic, normocephalic Eye exam: PRESENT: EOMI, PERRLA Mouth exam: PRESENT: moist Neck exam: PRESENT: full ROM Respiratory exam: PRESENT: clear to auscultation anshul, symmetrical, unlabored Cardiovascular exam: PRESENT: RRR, +S1, +S2 GI/Abdominal exam: PRESENT: diminished bowel sounds, distended, soft. ABSENT: rebound, tenderness Extremities exam: ABSENT: +1 edema, +2 edema Musculoskeletal exam: PRESENT: full ROM Neurological exam: PRESENT: alert, awake, oriented to person, oriented to place Psychiatric exam: PRESENT: normal mood Results Laboratory Results: 04/30/20 05:15 04/30/20 05:15 04/30/20 04/30/20 04/30/20 05:15 05:15 11:20 WBC 11.3 H RBC 3.13 L Hgb 9.0 L Hct 27.5 L MCV 88 MCH 28.8 MCHC 32.7 RDW 14.9 H Plt Count 281 Sodium 132.2 L Potassium 3.7 Chloride 95 L Carbon Dioxide 29 Anion Gap 8 BUN 11 Creatinine 0.66 Est GFR ( Amer) > 60 Glucose 80 Calcium 9.0 Total Bilirubin 0.8 AST 26 Alkaline Phosphatase 357 H Total Protein 6.1 L Albumin 2.8 L Urine Color YELLOW Urine Appearance SLIGHTLY-CLOUDY Urine pH 7.0 Ur Specific [place] 1.014 Urine Protein NEGATIVE Urine Glucose (UA) NEGATIVE Urine Ketones 20 H Urine Blood SMALL H Urine Nitrite NEGATIVE Ur Leukocyte Esterase TRACE H Urine WBC (Auto) 3 Urine RBC (Auto) 3 Impressions: Abdomen/Pelvis CT 04/27/20 17:32 IMPRESSION: There is prominence of the small bowel with stranding seen at the right mid mesentery and a likely transition point at the right lower quadrant of the abdomen. This may be near the anastomosis site or more centrally. This could represent evidence of an ileus or developing small bowel obstruction. There are multiple nodules at the right lung base which are predominantly subcentimeter. There is a pleural-based nodule measuring at least 2.0 cm. This is concerning for malignancy. There are patchy lytic changes within the bones concerning for metastatic disease. KUB X-Ray 04/29/20 14:16 IMPRESSION: Esophagogastric tube tip and side-hole are within the stomach. Stacked gas-filled loops of small bowel suggestive of bowel obstruction versus ileus. Assessment and Plan - Diagnosis (1) Partial small bowel obstruction Is this a current diagnosis for this admission?: Yes Plan: -Came in with abdominal pain 1 week duration -He has a history of chronic opioid use secondary to stage IV lung cancer -CT scan of the abdomen done in the ED showed ileus versus developing small bowel obstruction -patient still has a lot of vomiting - discussed case with Dr. Dockery, in light if his stage IV lung cancer with brain metastases with limited life expectancy, undergoing surgery will be very high risk for him. I have discussed this with him and his . If they do decide to proceed with surgery, he would likely need to be transferred to a tertiary care center. I asked the as well if they are aware of hospice service and she said she is not. However, patient expressed that he for sure to stay home and be pain-free -NG pulled out (2) Metastatic lung cancer (metastasis from lung to other site) Qualifiers: Laterality: unspecified laterality Qualified Code(s): C34.90 - Malignant neoplasm of unspecified part of unspecified bronchus or lung Is this a current diagnosis for this admission?: Yes Plan: -Dr. Chandler is following him outpatient. According to the he is still undergoing treatment for stage IV metastatic lung cancer -oral morphine switched to IV dilaudid. - patient needs outpatient palliative (3) Atrial fibrillation with RVR Is this a current diagnosis for this admission?: Yes Plan: -Known history of Persistent atrial fibrillation came in RVR -resumed his oral medications flecainide, carvedilol and apixaban now that he is on a clear liquid diet (4) Constipation Qualifiers: Constipation type: drug induced constipation Qualified Code(s): K59.03 - Drug induced constipation Is this a current diagnosis for this admission?: Yes Plan: -Patient is on morphine at home secondary to stage IV lung cancer -According to his he would have a bowel movement every 4 to 5 days -Was on docusate and senna at home -We will continue mag citrate and enema during this admission -Consider methyl naltrexone if he does not improve (5) Leukocytosis Qualifiers: Leukocytosis type: unspecified Qualified Code(s): D72.829 - Elevated white blood cell count, unspecified Is this a current diagnosis for this admission?: Yes Plan: -Mild 12.8, likely reactive from vomiting -No indication for antibiotics for now we will continue to monitor (6) Abdominal pain Qualifiers: Abdominal location: generalized Qualified Code(s): R10.84 - Generalized abdominal pain Is this a current diagnosis for this admission?: Yes Plan: -Came in with abdominal pain 1 week duration - likely 2/2 bowel obstruction - Plan Summary Summary: . - Time Anticipated Discharge Disposition: to be determined Anticipated Discharge Timeframe: to be determined - Inpatient Certification Medical Necessity: Risk of Complication if Not Cared For in Hospital, Other
[2020-05-01] MEDS: HYDROMORPHONE HCL INJ/PF 2 MG/ML AMPULE IV PRN ×8 (00:34→23:50)
[2020-05-01] MEDS: RINGERS SOLUTION,LACTATED 1,000 ML IV PRN ×2 (04:46→17:51)
--- NOTE | 2020-05-01 08:49 | PDOC CONSULTATION ---
Consultation Consult Date: 05/01/20 Provider Consulted: DEVANTE BUENO Consult reason:: Hematology/Oncology consultation was requested for patient with metastatic lung cancer and bowel obstruction. History of Present Illness Admission Date/PCP: 04/27/20 22:07 LALA MCCRARY History of Present Illness: EDINSON BLOCK is a 69 year old male who underwent appendectomy on 03/02/2020 and was found to have metastatic lung cancer causing perforated appendix and partial small bowel obstructions. He was also found to have brain mets. He completed whole brain radiation therapy on 03/26/2020 and was scheduled to start his chemotherapy with keytruda/carboplatin/alimta. However, he has NOT yet received his first cycle due to financial documents. He was admitted again 04/27/2020 with partial bowel obstruction and has been treated with NG tube and laxatives. This morning, he states that he needs to get up out of bed and move around more, as this helps his pain. He states that his was not giving him enough laxatives and his pain medication caused constipation. He is still complaining of pain with movement only. Pain is in his abdomen and side. He is also having some increased difficulty breathing. 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 Denies: Hemorrhagic CVA, Ischemic CVA, Seizures Endocrine Medical History: Denies: Diabetes Mellitus Type 1, Diabetes Mellitus Type 2, Hyperthyroidism, Hypothyroidism Renal/ Medical History: Reports: Other - Benign prostatic hyperplasia Denies: Chronic Kidney Disease, Nephrolithiasis Malignancy Medical History: Reports: Lung Cancer GI Medical History: Reports: Gastroesophageal Reflux Disease Denies: Cirrhosis, Hepatitis, Peptic Ulcer Disease Musculoskeltal Medical History: Denies: Arthritis, Gout Skin Medical History: Denies: Eczema, Psoriasis Psychiatric Medical History: Denies: Alcohol Dependency, Depression, Substance Abuse, Tobacco Dependency Traumatic Medical History: Reports: None Hematology: Denies: Anemia, Bleeding Tendencies Infectious Medical History: Reports: None Past Surgical History Past Surgical History: Reports: Appendectomy, Cardiac Catheterization - ablasion for rapid rate atrial fibrillation February 2014, Cholecystectomy - Cholecystectomy complicated requiring liver resection., Other - Right hemicolectomy Social History Lives with: Spouse/Significant other Smoking Status: Former Smoker Electronic Cigarette use?: No Last Time Smoked: 2012 Frequency of Alcohol Use: None Hx Recreational Drug Use: No Drugs: None Hx Prescription Drug Abuse: No - Advance Directive Resuscitation Status: Full Code Family History Family History: CAD. denies: DM, Hypertension, Malignancy Parental Family History Reviewed: Yes Children Family History Reviewed: No Sibling(s) Family History Reviewed.: Yes Medication/Allergy Home Medications: Lisinopril [Prinivil 10 mg Tablet] 10 mg PO DAILY #30 tablet 06/20/13 Carvedilol [Coreg 12.5 mg Tablet] 12.5 mg PO DAILY 10/30/14 Aspirin [Ecotrin 81 mg EC Tablet] 81 mg PO DAILY 02/21/20 Atorvastatin Calcium [Lipitor 20 mg Tablet] 20 mg PO QAM 02/21/20 Flecainide Acetate [Tambocor 100 mg Tablet] 150 mg PO DAILY 02/21/20 Docusate Sodium [Colace 100 mg Capsule] 200 mg PO DAILY capsule 03/10/20 Albuterol Sulfate [Albuterol Sulfate Hfa] 2 puff IH Q4HP PRN 04/28/20 Apixaban [Eliquis 5 mg Tablet] 5 mg PO BID 04/28/20 Clonazepam [Klonopin] 0.5 mg PO BIDP PRN 04/28/20 Cyanocobalamin (Vitamin B-12) [Vitamin B12] 2,500 mcg PO DAILY 04/28/20 Folic Acid [Folvite 1 mg Tablet] 1 mg PO DAILY 04/28/20 Furosemide [Lasix 40 mg Tablet] 40 mg PO QAMP PRN 04/28/20 Morphine Sulfate [Morphine Ir 15 mg Tablet] 15 mg PO Q4HP PRN 04/28/20 Morphine Sulfate [Ms Contin] 15 mg PO Q12 04/28/20 Omeprazole 20 mg PO DAILY 04/28/20 Ondansetron HCl [Zofran 8 mg Tablet] 8 mg PO Q8HP PRN 04/28/20 Promethazine HCl [Phenergan 25 mg Tablet] 25 mg PO Q6HP PRN 04/28/20 Sennosides/Docusate Sodium [Stool Softener-Laxative Tablet] 1 tab PO BID 04/28/20 Allergies/Adverse Reactions: Penicillins Allergy (Severe, Verified 06/16/13 08:53) Anaphylaxis Tetanus Vaccines and Toxoid [Tetanus] Allergy (Severe, Verified 06/16/13 08:53) Anaphylaxis Review of Systems Constitutional: ABSENT: fever(s), headache(s) Eyes: PRESENT: visual disturbances Ears: ABSENT: hearing changes Nose, Mouth, and Throat: ABSENT: sore throat Cardiovascular: ABSENT: chest pain Respiratory: PRESENT: dyspnea Gastrointestinal: PRESENT: abdominal pain, constipation, nausea, vomiting Genitourinary: ABSENT: dysuria Musculoskeletal: PRESENT: back pain Integumentary: ABSENT: rash Neurological: PRESENT: confusion Hematologic/Lymphatic: ABSENT: easy bleeding Physical Exam Vital Signs: Temp Pulse Resp BP Pulse Ox 97.6 F 124 H 22 H 155/72 H 94 04/30/20 23:03 05/01/20 02:00 04/30/20 23:03 04/30/20 23:03 04/30/20 23:03 Intake & Output 04/30/20 05/01/20 05/02/20 06:59 06:59 06:59 Intake Total 3943 2310 Output Total 1325 275 Balance 2618 2035 Weight 93.7 kg 94.1 kg General appearance: PRESENT: no acute distress, well-developed, well-nourished Exam: 69 year old male. Head exam: PRESENT: normocephalic Eye exam: PRESENT: EOMI, PERRLA Mouth exam: PRESENT: tongue midline Neck exam: ABSENT: lymphadenopathy, tenderness Respiratory exam: PRESENT: clear to auscultation anshul, unlabored Cardiovascular exam: PRESENT: RRR, tachycardia GI/Abdominal exam: PRESENT: hypoactive bowel sounds, soft, tenderness Extremities exam: ABSENT: pedal edema Neurological exam: PRESENT: alert, awake Psychiatric exam: PRESENT: appropriate affect Skin exam: PRESENT: normal color Results Laboratory Results: 04/30/20 05:15 04/30/20 05:15 04/30/20 11:20 Urine Color YELLOW Urine Appearance SLIGHTLY-CLOUDY Urine pH 7.0 Ur Specific [place] 1.014 Urine Protein NEGATIVE Urine Glucose (UA) NEGATIVE Urine Ketones 20 H Urine Blood SMALL H Urine Nitrite NEGATIVE Ur Leukocyte Esterase TRACE H Urine WBC (Auto) 3 Urine RBC (Auto) 3 Impressions: Abdomen/Pelvis CT 04/27/20 17:32 IMPRESSION: There is prominence of the small bowel with stranding seen at the right mid mesentery and a likely transition point at the right lower quadrant of the abdomen. This may be near the anastomosis site or more centrally. This could represent evidence of an ileus or developing small bowel obstruction. There are multiple nodules at the right lung base which are predominantly subcentimeter. There is a pleural-based nodule measuring at least 2.0 cm. This is concerning for malignancy. There are patchy lytic changes within the bones concerning for metastatic disease. KUB X-Ray 04/29/20 14:16 IMPRESSION: Esophagogastric tube tip and side-hole are within the stomach. Stacked gas-filled loops of small bowel suggestive of bowel obstruction versus ileus. Status: Image reviewed by me Assessment & Plan - Diagnosis (1) Pain, cancer Is this a current diagnosis for this admission?: Yes Plan: He was taking MS Contin in addition to MSIR. He is currently not receiving any long-acting pain medications. I believe he still needs something more for pain. Sadly, all narcotics can worsen constipation, but pain meeds to be treated. I will add Duragesic 25 mcg patch instead of the MS Contin. (2) Metastatic lung cancer (metastasis from lung to other site) Qualifiers: Laterality: unspecified laterality Qualified Code(s): C34.90 - Malignant neoplasm of unspecified part of unspecified bronchus or lung Is this a current diagnosis for this admission?: Yes Plan: He still needs to start chemotherapy DELANO. I will discuss with administration to see if we cannot start this now. Patient would still like to try some treatment for his cancer before consenting to Hospice Care. (3) Partial obstruction of small intestine Is this a current diagnosis for this admission?: Yes Plan: I would continue Reglan QID regularly as well as adding Senna-S 2 tabs BID and use MagCit daily PRN if no BMs as outpatient. I agree with MagCit daily for now. Need to re-enforce that he needs to take laxatives EVERY DAY. - Plan Summary Plan Summary: Patient was discussed with Dr. Lockhart. Thank you for this consult
[2020-05-01] MEDS: METOCLOPRAMIDE HCL 10 MG TABLET NG SCH ×4 (08:54→23:49)
[2020-05-01] MEDS: PANTOPRAZOLE SODIUM 40 MG VIAL IV SCH (09:55)
[2020-05-01] MEDS: ASPIRIN 81 MG TABLET, CHEWABLE NG SCH (09:56)
[2020-05-01] MEDS: APIXABAN 5 MG TABLET NG SCH ×2 (09:56→17:47)
[2020-05-01] MEDS: MAGNESIUM CITRATE 296 ML BOTTLE NG SCH (09:57)
[2020-05-01] MEDS: DOCUSATE SODIUM 100 MG/10 ML UDC NG SCH ×2 (09:57→17:47)
[2020-05-01] MEDS ORDERED: FENTANYL 25 MCG/HR PATCH.TD72 TD SCH (10:00)
[2020-05-01] MEDS: FLECAINIDE ACETATE 100 MG TABLET NG SCH (11:23)
[2020-05-01 13:21] LABS: HEMATOCRIT 26.6 % (37.9-51.0); HEMOGLOBIN 8.7 g/dL (13.5-17.0); MEAN CORPUSCULAR HEMOGLOBIN 29.4 pg (27.0-33.4); MEAN CORPUSCULAR HGB CONC 32.7 g/dL (32.0-36.0); MEAN CORPUSCULAR VOLUME 90 fl (80-97); PLATELET COUNT 257 10^3/uL (150-450); RED BLOOD COUNT 2.96 10^6/uL (4.35-5.55); RED CELL DISTRIBUTION WIDTH 15.2 % (11.5-14.0); WHITE BLOOD COUNT 10.1 10^3/uL (4.0-10.5)
[2020-05-01 14:27] LABS: AMORPHOUS SEDIMENT,URINE 2+ /HPF; APPEARANCE,URINE CLOUDY; BILIRUBIN,URINE NEGATIVE (NEGATIVE); COLOR,URINE YELLOW; GLUCOSE, URINE NEGATIVE (NEGATIVE); KETONES,URINE TRACE mg/dL (NEGATIVE); LEUKOCYTE ESTERASE,URINE NEGATIVE (NEGATIVE); NITRITE,URINE NEGATIVE (NEGATIVE); PROTEIN,URINE NEGATIVE (NEGATIVE); URINE SPECIFIC GRAVITY 1.009
[2020-05-01 15:09] LABS: ALBUMIN 2.8 g/dL (3.5-5.0); ALKALINE PHOSPHATASE 361 U/L (38-126); ANION GAP 6 (5-19); ASPARTATE AMINO TRANSFERASE 30 U/L (17-59); BILIRUBIN,DIRECT 0.3 mg/dL (0.0-0.4); BILIRUBIN,TOTAL 0.9 mg/dL (0.2-1.3); BLOOD UREA NITROGEN 10 mg/dL (7-20); CARBON DIOXIDE 30 mmol/L (22-30); CHLORIDE 97 mmol/L (98-107); GLUCOSE 86 mg/dL (75-110); POTASSIUM 3.9 mmol/L (3.6-5.0)
[2020-05-01] MEDS: ONDANSETRON HCL INJ/PF 4 MG/2 ML SDV IV PRN (16:35)
--- NOTE | 2020-05-01 21:14 | PDOC PROGRESS REPORT ---
Subjective Progress Note for:: 05/01/20 Subjective:: In and examined at bedside. No more vomiting since yesterday. One episode of bowel movement today. Complaining of pain in the abdomen. Afebrile tolerating oral diet Reason For Visit: ATRIAL FIBRILLATION WITH RAPID VENTRICULAR Physical Exam Vital Signs: Temp Pulse Resp BP Pulse Ox 97.7 F 102 H 18 156/84 H 93 05/01/20 20:29 05/01/20 20:29 05/01/20 20:29 05/01/20 20:29 05/01/20 20:29 Intake & Output 04/30/20 05/01/20 05/02/20 06:59 06:59 06:59 Intake Total 3943 2310 1120 Output Total 1325 275 782 Balance 2618 2035 338 Weight 93.7 kg 94.1 kg General appearance: PRESENT: no acute distress, other - In pain Head exam: PRESENT: atraumatic, normocephalic Eye exam: PRESENT: EOMI, PERRLA Mouth exam: PRESENT: moist Neck exam: PRESENT: full ROM Respiratory exam: PRESENT: clear to auscultation anshul, symmetrical, unlabored Cardiovascular exam: PRESENT: RRR, +S1, +S2 Pulses: PRESENT: normal carotid pulses, normal radial pulses GI/Abdominal exam: PRESENT: distended, normal bowel sounds, soft. ABSENT: gua rding, rebound Rectal exam: PRESENT: deferred Extremities exam: PRESENT: full ROM. ABSENT: +2 edema Musculoskeletal exam: PRESENT: full ROM Neurological exam: PRESENT: alert, awake, oriented to person, oriented to place, oriented to time Psychiatric exam: PRESENT: normal mood Results Laboratory Results: 05/01/20 06:00 05/01/20 14:20 05/01/20 05/01/20 05/01/20 06:00 14:00 14:20 WBC 10.1 RBC 2.96 L Hgb 8.7 L Hct 26.6 L MCV 90 MCH 29.4 MCHC 32.7 RDW 15.2 H Plt Count 257 Sodium 133.0 L Potassium 3.9 Chloride 97 L Carbon Dioxide 30 Anion Gap 6 BUN 10 Creatinine 0.64 Est GFR ( Amer) > 60 Glucose 86 Calcium 9.0 Total Bilirubin 0.9 AST 30 Alkaline Phosphatase 361 H Total Protein 6.0 L Albumin 2.8 L Urine Color YELLOW Urine Appearance CLOUDY Urine pH 7.0 Ur Specific [place] 1.009 Urine Protein NEGATIVE Urine Glucose (UA) NEGATIVE Urine Ketones TRACE H Urine Blood NEGATIVE Urine Nitrite NEGATIVE Ur Leukocyte Esterase NEGATIVE Urine WBC (Auto) 1 Urine RBC (Auto) 2 Impressions: Abdomen/Pelvis CT 04/27/20 17:32 IMPRESSION: There is prominence of the small bowel with stranding seen at the right mid mesentery and a likely transition point at the right lower quadrant of the abdomen. This may be near the anastomosis site or more centrally. This could represent evidence of an ileus or developing small bowel obstruction. There are multiple nodules at the right lung base which are predominantly subcentimeter. There is a pleural-based nodule measuring at least 2.0 cm. This is concerning for malignancy. There are patchy lytic changes within the bones concerning for metastatic disease. KUB X-Ray 04/29/20 14:16 IMPRESSION: Esophagogastric tube tip and side-hole are within the stomach. Stacked gas-filled loops of small bowel suggestive of bowel obstruction versus ileus. Assessment and Plan - Diagnosis (1) Partial small bowel obstruction Is this a current diagnosis for this admission?: Yes Plan: -Came in with abdominal pain 1 week duration -He has a history of chronic opioid use secondary to stage IV lung cancer -CT scan of the abdomen done in the ED showed ileus versus developing small bowel obstruction - discussed case with Dr. Dockery, in light if his stage IV lung cancer with brain metastases with limited life expectancy, undergoing surgery will be very high risk for him. I have discussed this with him and his . If they do decide to proceed with surgery, he would likely need to be transferred to a tertiary care center. I asked the as well if they are aware of hospice service and she said she is not. However, patient expressed that he for sure to stay home and be pain-free -on magcit, senna currently has bowel movement - reglan for nausea (2) Abdominal pain Qualifiers: Abdominal location: generalized Qualified Code(s): R10.84 - Generalized abdominal pain Is this a current diagnosis for this admission?: Yes Plan: -Came in with abdominal pain 1 week duration - likely 2/2 bowel obstruction due to chronic opioid use - on magcit and senna - enema if no bowel movement despite (3) Metastatic lung cancer (metastasis from lung to other site) Qualifiers: Laterality: unspecified laterality Qualified Code(s): C34.90 - Malignant neoplasm of unspecified part of unspecified bronchus or lung Is this a current diagnosis for this admission?: Yes Plan: -Dr. Chandler is following him outpatient. According to the he is still undergoing treatment for stage IV metastatic lung cancer -oral morphine switched to IV dilaudid, started on duragesic per Dr. Miller - to start chemo tomorrow - patient needs outpatient palliative - Onc following (4) Atrial fibrillation with RVR Is this a current diagnosis for this admission?: Yes Plan: -Known history of Persistent atrial fibrillation came in RVR -resumed his oral medications flecainide, carvedilol and apixaban now that he is on a clear liquid diet (5) Constipation Qualifiers: Constipation type: drug induced constipation Qualified Code(s): K59.03 - Drug induced constipation Is this a current diagnosis for this admission?: Yes Plan: -Patient is on morphine at home secondary to stage IV lung cancer -According to his he would have a bowel movement every 4 to 5 days -Was on docusate and senna at home -We will continue mag citrate, senna -Consider methyl naltrexone if he does not improve (6) Leukocytosis Qualifiers: Leukocytosis type: unspecified Qualified Code(s): D72.829 - Elevated white blood cell count, unspecified Is this a current diagnosis for this admission?: Yes - Plan Summary Summary: . - Time Time Spent with patient: 15-24 minutes Medications reviewed and adjusted accordingly: Yes Anticipated Discharge Disposition: to be determined Anticipated Discharge Timeframe: to be determined - Inpatient Certification Medical Necessity: Need for Pain Control
[2020-05-01] MEDS: SENNOSIDES/DOCUSATE 8.6-50 MG 1 EACH TABLET PO SCH (23:49)
[2020-05-02] MEDS: HYDROMORPHONE HCL INJ/PF 2 MG/ML AMPULE IV PRN ×7 (03:10→23:10)
[2020-05-02] MEDS: RINGERS SOLUTION,LACTATED 1,000 ML IV PRN ×2 (06:07→19:07)
[2020-05-02 06:34] LABS: HEMATOCRIT 32.2 % (37.9-51.0); HEMOGLOBIN 10.3 g/dL (13.5-17.0); MEAN CORPUSCULAR HEMOGLOBIN 28.5 pg (27.0-33.4); MEAN CORPUSCULAR HGB CONC 31.9 g/dL (32.0-36.0); MEAN CORPUSCULAR VOLUME 89 fl (80-97); PLATELET COUNT 330 10^3/uL (150-450); RED BLOOD COUNT 3.61 10^6/uL (4.35-5.55); RED CELL DISTRIBUTION WIDTH 15.5 % (11.5-14.0); WHITE BLOOD COUNT 15.9 10^3/uL (4.0-10.5)
[2020-05-02 06:53] LABS: APPEARANCE,URINE SLIGHTLY-CLOUDY; BILIRUBIN,URINE NEGATIVE (NEGATIVE); COLOR,URINE YELLOW; GLUCOSE, URINE NEGATIVE (NEGATIVE); KETONES,URINE 20 mg/dL (NEGATIVE); LEUKOCYTE ESTERASE,URINE TRACE (NEGATIVE); NITRITE,URINE NEGATIVE (NEGATIVE); PROTEIN,URINE NEGATIVE (NEGATIVE); URINE SPECIFIC GRAVITY 1.018
[2020-05-02] MEDS: METOCLOPRAMIDE HCL 10 MG TABLET NG SCH ×4 (08:56→23:10)
[2020-05-02] MEDS: PANTOPRAZOLE SODIUM 40 MG VIAL IV SCH (09:43)
[2020-05-02] MEDS: DOCUSATE SODIUM 100 MG/10 ML UDC NG SCH ×2 (09:45→17:28)
[2020-05-02] MEDS: ASPIRIN 81 MG TABLET, CHEWABLE NG SCH (09:46)
[2020-05-02] MEDS: FLECAINIDE ACETATE 100 MG TABLET NG SCH (09:46)
[2020-05-02] MEDS: APIXABAN 5 MG TABLET NG SCH ×2 (09:46→17:28)
[2020-05-02] MEDS: MAGNESIUM CITRATE 296 ML BOTTLE NG SCH (09:46)
--- NOTE | 2020-05-02 10:44 | PDOC PROGRESS REPORT ---
Subjective Progress Note for:: 05/02/20 Subjective:: Patient complaining of continued pain today. Still having some nausea. Bowels are moving. However, he states that he does not believe he is strong enough to go through any surgery or any treatment, including chemotherapy. He wants to go home and focus on pain control. I also discussed this with his . She knows that he has been depressed and feeling very poorly. She agrees that he is not strong enough to proceed with aggressive treatment. She requests Hospice support. Reason For Visit: ATRIAL FIBRILLATION WITH RAPID VENTRICULAR Physical Exam Vital Signs: Temp Pulse Resp BP Pulse Ox 97.9 F 111 H 18 162/77 H 91 L 05/02/20 07:55 05/02/20 07:55 05/02/20 07:55 05/02/20 07:55 05/02/20 07:55 Intake & Output 05/01/20 05/02/20 05/03/20 06:59 06:59 06:59 Intake Total 2310 2661 Output Total 275 1382 Balance 2035 1279 Weight 94.1 kg 94.1 kg General appearance: PRESENT: no acute distress Head exam: PRESENT: normocephalic Eye exam: PRESENT: EOMI Respiratory exam: PRESENT: unlabored GI/Abdominal exam: PRESENT: distended, firm, tenderness Extremities exam: ABSENT: pedal edema Neurological exam: PRESENT: alert, awake, oriented to person, oriented to place, oriented to situation Psychiatric exam: PRESENT: appropriate affect, depressed Skin exam: PRESENT: normal color Results Laboratory Results: 05/02/20 06:10 05/01/20 14:20 05/01/20 05/01/20 05/01/20 06:00 14:00 14:20 WBC 10.1 RBC 2.96 L Hgb 8.7 L Hct 26.6 L MCV 90 MCH 29.4 MCHC 32.7 RDW 15.2 H Plt Count 257 Sodium 133.0 L Potassium 3.9 Chloride 97 L Carbon Dioxide 30 Anion Gap 6 BUN 10 Creatinine 0.64 Est GFR ( Amer) > 60 Glucose 86 Calcium 9.0 Total Bilirubin 0.9 AST 30 Alkaline Phosphatase 361 H Total Protein 6.0 L Albumin 2.8 L Urine Color YELLOW Urine Appearance CLOUDY Urine pH 7.0 Ur Specific [place] 1.009 Urine Protein NEGATIVE Urine Glucose (UA) NEGATIVE Urine Ketones TRACE H Urine Blood NEGATIVE Urine Nitrite NEGATIVE Ur Leukocyte Esterase NEGATIVE Urine WBC (Auto) 1 Urine RBC (Auto) 2 05/02/20 05/02/20 06:10 06:10 WBC 15.9 H RBC 3.61 L Hgb 10.3 L Hct 32.2 L MCV 89 MCH 28.5 MCHC 31.9 L RDW 15.5 H Plt Count 330 Sodium Potassium Chloride Carbon Dioxide Anion Gap BUN Creatinine Est GFR ( Amer) Glucose Calcium Total Bilirubin AST Alkaline Phosphatase Total Protein Albumin Urine Color YELLOW Urine Appearance SLIGHTLY-CLOUDY Urine pH 5.0 Ur Specific [place] 1.018 Urine Protein NEGATIVE Urine Glucose (UA) NEGATIVE Urine Ketones 20 H Urine Blood NEGATIVE Urine Nitrite NEGATIVE Ur Leukocyte Esterase TRACE H Urine WBC (Auto) 4 Urine RBC (Auto) 3 Impressions: Abdomen/Pelvis CT 04/27/20 17:32 IMPRESSION: There is prominence of the small bowel with stranding seen at the right mid mesentery and a likely transition point at the right lower quadrant of the abdomen. This may be near the anastomosis site or more centrally. This could represent evidence of an ileus or developing small bowel obstruction. There are multiple nodules at the right lung base which are predominantly subcentimeter. There is a pleural-based nodule measuring at least 2.0 cm. This is concerning for malignancy. There are patchy lytic changes within the bones concerning for metastatic disease. KUB X-Ray 04/29/20 14:16 IMPRESSION: Esophagogastric tube tip and side-hole are within the stomach. Stacked gas-filled loops of small bowel suggestive of bowel obstruction versus ileus. Assessment & Plan - Diagnosis (1) Pain, cancer Is this a current diagnosis for this admission?: Yes Plan: He has had no reaction to the duragesic. I will increase dose to 75 mcgs, as he has been receiving dliaudid quite frequently. May continue to titrate this dos e. Continue Dilaudid as well. (2) Metastatic lung cancer (metastasis from lung to other site) Qualifiers: Laterality: unspecified laterality Qualified Code(s): C34.90 - Malignant neoplasm of unspecified part of unspecified bronchus or lung Is this a current diagnosis for this admission?: Yes Plan: With partial SBO. Again, after further discussion, patient wishes to be DNR and go home with Hospice care. is in agreement. I will arrange. (3) Partial obstruction of small intestine Is this a current diagnosis for this admission?: Yes Plan: Continue aggressive laxatives. Patient not taking much in. Move toward comfort measures only. - Time Time Spent with patient: 15-24 minutes - Plan Summary Plan Summary: On discharge, would STOP all meds except comfort measures. No need for anticoagulation, etc. Patient was discussed with Dr. Dominique.
[2020-05-02] MEDS ORDERED: FENTANYL 75 MCG/HR PATCH.TD72 TD SCH (11:30)
[2020-05-02] MEDS: LORAZEPAM INJ 2 MG/1 ML VIAL IV PRN (13:29)
[2020-05-02 16:44] LABS: ALBUMIN 2.6 g/dL (3.5-5.0); ALKALINE PHOSPHATASE 347 U/L (38-126); ANION GAP 9 (5-19); ASPARTATE AMINO TRANSFERASE 28 U/L (17-59); BILIRUBIN,DIRECT 0.4 mg/dL (0.0-0.4); BILIRUBIN,TOTAL 0.7 mg/dL (0.2-1.3); BLOOD UREA NITROGEN 14 mg/dL (7-20); CALCIUM 8.4 mg/dL (8.4-10.2); CARBON DIOXIDE 29 mmol/L (22-30); CHLORIDE 95 mmol/L (98-107); GLUCOSE 79 mg/dL (75-110); TOTAL PROTEIN 5.8 g/dL (6.3-8.2)
--- NOTE | 2020-05-02 16:45 | PDOC PROGRESS REPORT ---
Subjective Progress Note for:: 05/02/20 Subjective:: The patient is quite sleepy. He still winces with pain when he moves. He has very coarse breath sounds. They have an almost gurgling quality. He is is at the bedside. Reason For Visit: ATRIAL FIBRILLATION WITH RAPID VENTRICULAR Physical Exam Vital Signs: Temp Pulse Resp BP Pulse Ox 97.7 F 108 H 19 165/77 H 91 L 05/02/20 15:51 05/02/20 15:51 05/02/20 15:51 05/02/20 15:51 05/02/20 15:51 Intake & Output 05/01/20 05/02/20 05/03/20 06:59 06:59 06:59 Intake Total 2310 2661 Output Total 275 1382 Balance 2035 1279 Weight 94.1 kg 94.1 kg General appearance: PRESENT: mild distress, well-developed Head exam: PRESENT: atraumatic, normocephalic Mouth exam: PRESENT: dry mucosa, tongue midline Respiratory exam: PRESENT: rhonchi - Bilaterally, symmetrical, unlabored. ABSENT: clear to auscultation anshul, rales, tachypnea, wheezes Cardiovascular exam: PRESENT: RRR, +S1, +S2 GI/Abdominal exam: PRESENT: distended - Slightly, soft. ABSENT: guarding, tenderness Rectal exam: PRESENT: deferred Gentrourinary exam: ABSENT: indwelling catheter Extremities exam: ABSENT: pedal edema Musculoskeletal exam: PRESENT: normal inspection. ABSENT: ambulatory - Due to pain in current clinical condition rather than neuromuscular deficit Neurological exam: PRESENT: awake, oriented to person. ABSENT: alert Psychiatric exam: PRESENT: other - Somnolent. ABSENT: agitated, anxious Results Laboratory Results: 05/02/20 06:10 05/02/20 05/02/20 06:10 06:10 WBC 15.9 H RBC 3.61 L Hgb 10.3 L Hct 32.2 L MCV 89 MCH 28.5 MCHC 31.9 L RDW 15.5 H Plt Count 330 Urine Color YELLOW Urine Appearance SLIGHTLY-CLOUDY Urine pH 5.0 Ur Specific [place] 1.018 Urine Protein NEGATIVE Urine Glucose (UA) NEGATIVE Urine Ketones 20 H Urine Blood NEGATIVE Urine Nitrite NEGATIVE Ur Leukocyte Esterase TRACE H Urine WBC (Auto) 4 Urine RBC (Auto) 3 Impressions: Abdomen/Pelvis CT 04/27/20 17:32 IMPRESSION: There is prominence of the small bowel with stranding seen at the right mid mesentery and a likely transition point at the right lower quadrant of the abdomen. This may be near the anastomosis site or more centrally. This could represent evidence of an ileus or developing small bowel obstruction. There are multiple nodules at the right lung base which are predominantly subcentimeter. There is a pleural-based nodule measuring at least 2.0 cm. This is concerning for malignancy. There are patchy lytic changes within the bones concerning for metastatic disease. KUB X-Ray 04/29/20 14:16 IMPRESSION: Esophagogastric tube tip and side-hole are within the stomach. Stacked gas-filled loops of small bowel suggestive of bowel obstruction versus ileus. Assessment and Plan - Diagnosis (1) Partial small bowel obstruction Is this a current diagnosis for this admission?: Yes Plan: Conservative therapy is being utilized due to his metastatic malignancy (lung a nd brain). He did have a nasogastric tube in place previously. He is quite uncomfortable and nursing reports he has not had much to take in by mouth and is occasionally nauseated. We will continue his supportive care as opposed to surgical intervention in light of the malignancy (2) Abdominal pain Qualifiers: Abdominal location: generalized Qualified Code(s): R10.84 - Generalized abdominal pain Is this a current diagnosis for this admission?: Yes Plan: Secondary to partial small bowel obstruction. Continue opiate therapy since it is being used for his malignancy. (3) Metastatic lung cancer (metastasis from lung to other site) Qualifiers: Laterality: unspecified laterality Qualified Code(s): C34.90 - Malignant neoplasm of unspecified part of unspecified bronchus or lung Is this a current diagnosis for this admission?: Yes Plan: The patient has metastatic lung cancer with brain metastases. The patient was seen by Dr. Chandler. He coughed up a blood clot earlier and has intermittent hemoptysis. The patient discussed with Dr. Chandler that he no longer wanted chemotherapy. I believe Dr. Chandler spoke with the patient's . We are going to graduate towards comfort measures. For the time being he will remain DO NOT RESUSCITATE. I believe the goal is home with hospice. (4) Longstanding persistent atrial fibrillation Is this a current diagnosis for this admission?: Yes Plan: The patient was on flecainide, carvedilol and he has not been able to take his medications. He has intermittent tachycardia likely from combination of the pain and inability to take oral medications. We will continue to monitor. (5) Constipation Qualifiers: Constipation type: drug induced constipation Qualified Code(s): K59.03 - Drug induced constipation Is this a current diagnosis for this admission?: Yes Plan: Secondary to opiate use treating his neoplasm related pain (6) Leukocytosis Qualifiers: Leukocytosis type: unspecified Qualified Code(s): D72.829 - Elevated white blood cell count, unspecified Is this a current diagnosis for this admission?: Yes Plan: Likely secondary to the bowel obstruction. We will continue to monitor. (7) Pain due to neoplasm Is this a current diagnosis for this admission?: Yes Plan: Continue aggressive pain management. - Plan Summary Summary: . - Time Time Spent with patient: 15-24 minutes Medications reviewed and adjusted accordingly: Yes Anticipated Discharge Disposition: Home with Hospice Anticipated Discharge Timeframe: within 48 hours
[2020-05-02] MEDS ORDERED: HYDRALAZINE HCL INJ/PF 20 MG/1 ML SDV IV PRN (17:24)
[2020-05-02] MEDS ORDERED: METOPROLOL TARTRATE PF/INJ 5 MG/5 ML SDV IV PRN (17:24)
[2020-05-02] MEDS: SENNOSIDES/DOCUSATE 8.6-50 MG 1 EACH TABLET PO SCH (23:05)
[2020-05-03] MEDS: HYDROMORPHONE HCL INJ/PF 2 MG/ML AMPULE IV PRN ×6 (02:43→20:37)
[2020-05-03 08:15] LABS: ALBUMIN 2.6 g/dL (3.5-5.0); ALKALINE PHOSPHATASE 362 U/L (38-126); ANION GAP 6 (5-19); ASPARTATE AMINO TRANSFERASE 31 U/L (17-59); BILIRUBIN,DIRECT 0.4 mg/dL (0.0-0.4); BILIRUBIN,TOTAL 0.8 mg/dL (0.2-1.3); BLOOD UREA NITROGEN 14 mg/dL (7-20); CALCIUM 8.5 mg/dL (8.4-10.2); CARBON DIOXIDE 29 mmol/L (22-30); CHLORIDE 96 mmol/L (98-107); GLUCOSE 75 mg/dL (75-110); POTASSIUM 4.1 mmol/L (3.6-5.0); TOTAL PROTEIN 5.7 g/dL (6.3-8.2)
[2020-05-03] MEDS: METOCLOPRAMIDE HCL 10 MG TABLET NG SCH ×3 (09:02→18:38)
[2020-05-03] MEDS: ONDANSETRON HCL INJ/PF 4 MG/2 ML SDV IV PRN (09:14)
[2020-05-03] MEDS: RINGERS SOLUTION,LACTATED 1,000 ML IV PRN ×3 (09:30→22:50)
[2020-05-03] MEDS: ASPIRIN 81 MG TABLET, CHEWABLE NG SCH (10:00)
[2020-05-03] MEDS: MAGNESIUM CITRATE 296 ML BOTTLE NG SCH (10:00)
[2020-05-03] MEDS: DOCUSATE SODIUM 100 MG/10 ML UDC NG SCH (10:01)
[2020-05-03] MEDS: FLECAINIDE ACETATE 100 MG TABLET NG SCH (10:01)
[2020-05-03] MEDS: APIXABAN 5 MG TABLET NG SCH (10:01)
[2020-05-03] MEDS: PANTOPRAZOLE SODIUM 40 MG VIAL IV SCH (10:05)
[2020-05-03] MEDS ORDERED: PHARMACY COMMUNICATION ORDER MC NR (12:00)
[2020-05-03] MEDS: LORAZEPAM INJ 2 MG/1 ML VIAL IV PRN ×2 (12:13→20:37)
--- NOTE | 2020-05-03 13:37 | RADIOLOGY REPORT (SQ) ---
EXAM DESCRIPTION: KUB/ABDOMEN (SINGLE VIEW) IMAGES COMPLETED DATE/TIME: 05/03/2020 1:11 pm REASON FOR STUDY: Check Placement of NG Tube COMPARISON: 04/29/2020 NUMBER OF VIEWS: One view. TECHNIQUE: Supine radiographic image of the abdomen acquired. LIMITATIONS: None. FINDINGS: BOWEL GAS PATTERN: There continue to be distended gas-filled loops of small bowel predomin antly on the left side of the abdomen. CALCIFICATIONS: No suspicious calcifications. SOFT TISSUES: No gross mass or suggestion of organomegaly. HARDWARE: None in the abdomen. BONES: NG tube is present in the fundus of the stomach. OTHER: No other significant finding. IMPRESSION: Small bowel obstruction. The NG tube is in the fundus of the stomach. TECHNICAL DOCUMENTATION: JOB ID: [id number] [email or web address]- All Rights Reserved Reading location - IP/workstation name: [email or web address]
--- NOTE | 2020-05-03 14:11 | PDOC DISCHARGE SUMMARY ---
Impression - Admit/DC Date/PCP Admission Date/Primary Care Provider: 04/27/20 22:07 LALA MCCRARY Discharge Date: 05/04/20 - Discharge Diagnosis (1) Metastatic lung cancer (metastasis from lung to other site) Is this a current diagnosis for this admission?: Yes - Assessment Summary: . - Additional Information Resuscitation Status: Do Not Resuscitate Discharge Diet: As Tolerated, Full Liquids Referrals: SHANNON MENDOZA FNP-C [Primary Care Provider] - Follow up as needed Prescriptions: Fentanyl [Duragesic 75 Mcg/Hr Transdermal Patch] 1 each TD Q3DAYS #3 patch.[id number] Lorazepam [Lorazepam Intensol] 2 mg PO Q4H PRN #20 ml PRN Reason: Morphine Sulfate 10 mg PO Q4H PRN #150 ml PRN Reason: For Pain Home Medications: Ondansetron HCl [Zofran 8 mg Tablet] 8 mg PO Q8HP PRN 04/28/20 Fentanyl [Duragesic 75 Mcg/Hr Transdermal Patch] 1 each TD Q3DAYS #3 patch.td72 05/03/20 Lorazepam [Lorazepam Intensol] 2 mg PO Q4H PRN #20 ml 05/03/20 Morphine Sulfate 10 mg PO Q4H PRN #150 ml 05/03/20 History of Present Illiness History of Present Illness: EDINSON BLOCK is a 69 year old male Hospital Course Hospital Course: The patient had a difficult hospital course. Because of his metastatic disease a conservative approach was taken. Nasogastric tube was placed to decompress the belly. He did get some relief. Because of discomfort with nausea he was limited with regard to oral medications. After several discussions it was felt that comfort care would be appropriate as the patient refused any further chemotherapy. He stated quite clearly to Dr. Chandler and to the hospitalists that he did not want any further treatment he just wants to go home and be comfortable. His honored these wishes. The patient was supposed to leave last night however transport was held up. Transport is arranged for early this morning and he will discharge as planned. All of the prescriptions were electronically sent yesterday. All of the medical equipment was delivered yesterday afternoon as well. Hospice will be providing care at home. Physical Exam Vital Signs: Temp Pulse Resp BP Pulse Ox 97.7 F 105 H 18 154/71 H 93 05/03/20 11:18 05/03/20 11:18 05/03/20 11:18 05/03/20 11:18 05/03/20 11:18 Intake & Output 05/02/20 05/03/20 05/04/20 06:59 06:59 06:59 Intake Total 2661 2052 1000 Output Total 1382 1200 Balance 4997 759 7165 Weight 94.1 kg 96.3 kg General appearance: PRESENT: mild distress - Mild to moderate distress Respiratory exam: PRESENT: clear to auscultation anshul - Anteriorly, symmetrical. ABSENT: rhonchi, wheezes Cardiovascular exam: PRESENT: tachycardia GI/Abdominal exam: PRESENT: distended, tenderness. ABSENT: soft - Abdomen is tense Results Laboratory Results: WBC 15.9 10^3/uL (4.0-10.5) H 05/02/20 06:10 RBC 3.61 10^6/uL (4.35-5.55) L 05/02/20 06:10 Hgb 10.3 g/dL (13.5-17.0) L 05/02/20 06:10 Hct 32.2 % (37.9-51.0) L 05/02/20 06:10 MCV 89 fl (80-97) 05/02/20 06:10 MCH 28.5 pg (27.0-33.4) 05/02/20 06:10 MCHC 31.9 g/dL (32.0-36.0) L 05/02/20 06:10 RDW 15.5 % (11.5-14.0) H 05/02/20 06:10 Plt Count 330 10^3/uL (150-450) 05/02/20 06:10 Lymph % (Auto) 20.4 % (13-45) 04/27/20 13:51 Thomas % (Auto) 8.6 % (3-13) 04/27/20 13:51 Eos % (Auto) 0.3 % (0-6) 04/27/20 13:51 Baso % (Auto) 0.5 % (0-2) 04/27/20 13:51 Absolute Neuts (auto) 8.0 10^3/uL (1.7-8.2) 04/27/20 13:51 Absolute Lymphs (auto) 2.3 10^3/uL (0.5-4.7) 04/27/20 13:51 Absolute Monos (auto) 1.0 10^3/uL (0.1-1.4) 04/27/20 13:51 Absolute Eos (auto) 0.0 10^3/uL (0.0-0.6) 04/27/20 13:51 Absolute Basos (auto) 0.1 10^3/uL (0.0-0.2) 04/27/20 13:51 Seg Neutrophils % 70.2 % (42-78) 04/27/20 13:51 Sodium 131.1 mmol/L (137-145) L 05/03/20 06:30 Potassium 4.1 mmol/L (3.6-5.0) 05/03/20 06:30 Chloride 96 mmol/L (98-107) L 05/03/20 06:30 Carbon Dioxide 29 mmol/L (22-30) 05/03/20 06:30 Anion Gap 6 (5-19) 05/03/20 06:30 BUN 14 mg/dL (7-20) 05/03/20 06:30 Creatinine 0.66 mg/dL (0.52-1.25) 05/03/20 06:30 Est GFR ( Amer) > 60 (>60) 05/03/20 06:30 Est GFR (MDRD) Non-Af > 60 (>60) 05/03/20 06:30 Glucose 75 mg/dL (75-110) 05/03/20 06:30 POC Glucose 92 mg/dL (70-110) 05/03/20 11:20 Lactic Acid 1.1 mmol/L (0.7-2.1) 04/27/20 13:51 Calcium 8.5 mg/dL (8.4-10.2) 05/03/20 06:30 Magnesium 1.9 mg/dL (1.6-2.3) 04/28/20 04:27 Total Bilirubin 0.8 mg/dL (0.2-1.3) 05/03/20 06:30 Direct Bilirubin 0.4 mg/dL (0.0-0.4) 05/03/20 06:30 Neonat Total Bilirubin Not Reportable 05/03/20 06:30 Neonat Direct Bilirubin Not Reportable 05/03/20 06:30 Neonat Indirect Bili Not Reportable 05/03/20 06:30 AST 31 U/L (17-59) 05/03/20 06:30 ALT 15 U/L (<50) 05/03/20 06:30 Alkaline Phosphatase 362 U/L (38-126) H 05/03/20 06:30 Total Protein 5.7 g/dL (6.3-8.2) L 05/03/20 06:30 Albumin 2.6 g/dL (3.5-5.0) L 05/03/20 06:30 TSH 3.82 uIU/mL (0.47-4.68) 04/28/20 04:26 Urine Color YELLOW 05/02/20 06:10 Urine Appearance SLIGHTLY-CLOUDY 05/02/20 06:10 Urine pH 5.0 (5.0-9.0) 05/02/20 06:10 Ur Specific Lyndon 1.018 05/02/20 06:10 Urine Protein NEGATIVE mg/dL (NEGATIVE) 05/02/20 06:10 Urine Glucose (UA) NEGATIVE mg/dL (NEGATIVE) 05/02/20 06:10 Urine Ketones 20 mg/dL (NEGATIVE) H 05/02/20 06:10 Urine Blood NEGATIVE (NEGATIVE) 05/02/20 06:10 Urine Nitrite NEGATIVE (NEGATIVE) 05/02/20 06:10 Urine Bilirubin NEGATIVE (NEGATIVE) 05/02/20 06:10 Urine Urobilinogen 2.0 mg/dL (<2.0) H 05/02/20 06:10 Ur Leukocyte Esterase TRACE (NEGATIVE) H 05/02/20 06:10 Urine WBC (Auto) 4 /HPF 05/02/20 06:10 Urine RBC (Auto) 3 /HPF 05/02/20 06:10 U Hyaline Cast (Auto) 1 /LPF 05/02/20 06:10 Urine Bacteria (Auto) 2+ /HPF 05/02/20 06:10 Squamous Epi Cells Auto <1 /HPF 05/02/20 06:10 Amorphous Sediment Auto 2+ /HPF 05/01/20 14:00 Urine Mucus (Auto) FEW /LPF 05/02/20 06:10 Urine Ascorbic Acid NEGATIVE (NEGATIVE) 05/02/20 06:10 COVID-19 Source NASOPHARYNGEAL 04/28/20 19:00 COVID-19 (ANJU) NOT DETECTED 04/28/20 19:00 Impressions: Abdomen/Pelvis CT 04/27/20 13:42 IMPRESSION: 1. Patient status post appendectomy with findings compatible small bowel obstruction and transition point within the right lower quadrant. Associated mild mid abdomen and right lower quadrant mesenteric stranding. No evidence of perforation. 2. Increased size of the right lower lobe pulmonary nodule measuring 2.6 cm compatible with malignancy. Additional new subcentimeter centrilobular opacities within the right lower lobe possibly metastatic disease or infectious/ inflammatory. 3. Innumerable bony metastatic disease with progression of multiple pathologic compression deformities including T8, T12 and L2. 4. Additional incidental findings as above. Findings conveyed to Dr. Romero at 1633 hours on 04/27/2020. Abdomen/Pelvis CT 04/27/20 17:32 IMPRESSION: There is prominence of the small bowel with stranding seen at the right mid mesentery and a likely transition point at the right lower quadrant of the abdomen. This may be near the anastomosis site or more centrally. This could represent evidence of an ileus or developing small bowel obstruction. There are multiple nodules at the right lung base which are predominantly subcentimeter. There is a pleural-based nodule measuring at least 2.0 cm. This is concerning for malignancy. There are patchy lytic changes within the bones concerning for metastatic disease. KUB X-Ray 04/29/20 14:16 IMPRESSION: Esophagogastric tube tip and side-hole are within the stomach. Stacked gas-filled loops of small bowel suggestive of bowel obstruction versus ileus. KUB X-Ray 05/03/20 11:54 IMPRESSION: Small bowel obstruction. The NG tube is in the fundus of the stomach. Plan Health Concerns: Metastatic lung cancer with brain lesion Bowel obstruction Plan of Treatment: Home with hospice services Time Spent: Less than 30 Minutes Stroke Is this a Stroke Patient?: No Acute Heart Failure - Is this a Heart Failure Patient?: No
--- NOTE | 2020-05-03 19:16 | ADVANCED CARE ---
- Diagnosis (1) Partial small bowel obstruction Diagnosis Current: Yes (2) Abdominal pain Diagnosis Current: Yes (3) Metastatic lung cancer (metastasis from lung to other site) Diagnosis Current: Yes (4) Longstanding persistent atrial fibrillation Diagnosis Current: Yes (5) Constipation Diagnosis Current: Yes (6) Leukocytosis Diagnosis Current: Yes (7) Pain due to neoplasm Diagnosis Current: Yes Attendance: Discussion was had on the with the patient's at the bedside as well as telephone discussion earlier today. Resuscitation Status: Do Not Resuscitate Discussion: Yesterday's discussion was particularly difficult. The patient was very clear about not wanting further chemotherapy and a desire to be made comfortable. His is certainly honoring his wishes but is upset and understandably so. We reviewed the differences between comfort only in the hospital as well as hospice care at home. The family does want the patient at home. She discussed it with her sons yesterday. They are opting for hospice at home. We have ordered all of the necessary durable medical equipment. I have sent prescriptions for liquid morphine, liquid lorazepam and fentanyl patches to [facility] [place] [address] He will be able to swallow the liquid or placed some liquid inside of his cheek and this will absorb as well. This is a very difficult time for the patient as well as his family. Care Planning Goals: All plans are in place for discharge to home today as medical equipment should be delivered at 230 this afternoon. Document(s) Completed: None Time Spent: 25 minutes
--- NOTE | 2020-05-03 19:16 | Progress Note ---
Provider Note Provider Note: Unfortunately the transport company is unable to transport the patient's afternoon. The soonest they would be able to pick the patient up is 1030 tonight. This is clearly not the time to transfer her patient the second the patient will stay here tonight and discharge tomorrow.
[2020-05-03] MEDS ORDERED: METOPROLOL TARTRATE PF/INJ 5 MG/5 ML SDV IV PRN (19:22)
--- NOTE | 2020-05-03 19:22 | PDOC PROGRESS REPORT ---
Subjective Progress Note for:: 05/03/20 Subjective:: The patient was arranged to be discharged today but due to transportation issues he will be remaining in the hospital. Reason For Visit: ATRIAL FIBRILLATION WITH RAPID VENTRICULAR Physical Exam Vital Signs: Temp Pulse Resp BP Pulse Ox 97.7 F 112 H 19 187/81 H 89 L 05/03/20 17:18 05/03/20 17:18 05/03/20 17:18 05/03/20 17:18 05/03/20 17:18 Intake & Output 05/02/20 05/03/20 05/04/20 06:59 06:59 06:59 Intake Total 2661 2052 2770 Output Total 1382 1200 900 Balance 2682 981 0309 Weight 94.1 kg 96.3 kg General appearance: PRESENT: cooperative - To the best of his ability considering his clinical condition, severe distress - Moderate to severe distress. He is actually opening his eyes and communicating today. The biggest issue is his abdomen., well-developed Head exam: PRESENT: atraumatic, normocephalic Ear exam: PRESENT: normal external ear exam. ABSENT: bleeding, drainage Mouth exam: PRESENT: dry mucosa, tongue midline Respiratory exam: PRESENT: clear to auscultation anshul, symmetrical, unlabored. ABSENT: tachypnea, wheezes Cardiovascular exam: PRESENT: RRR, +S1, +S2 GI/Abdominal exam: PRESENT: distended, hypoactive bowel sounds Rectal exam: PRESENT: deferred Gentrourinary exam: ABSENT: indwelling catheter Neurological exam: PRESENT: awake, oriented to person, oriented to place, oriented to situation. ABSENT: alert - He does open his eyes and tries to participate in the conversation but he is still somewhat sleepy. Psychiatric exam: PRESENT: other - Affect reflects his considerable pain. ABSENT: agitated, anxious Results Laboratory Results: 05/02/20 06:10 05/03/20 06:30 05/03/20 06:30 Sodium 131.1 L Potassium 4.1 Chloride 96 L Carbon Dioxide 29 Anion Gap 6 BUN 14 Creatinine 0.66 Est GFR ( Amer) > 60 Glucose 75 Calcium 8.5 Total Bilirubin 0.8 AST 31 Alkaline Phosphatase 362 H Total Protein 5.7 L Albumin 2.6 L Impressions: Abdomen/Pelvis CT 04/27/20 17:32 IMPRESSION: There is prominence of the small bowel with stranding seen at the right mid mesentery and a likely transition point at the right lower quadrant of the abdomen. This may be near the anastomosis site or more centrally. This could represent evidence of an ileus or developing small bowel obstruction. There are multiple nodules at the right lung base which are predominantly subcentimeter. There is a pleural-based nodule measuring at least 2.0 cm. This is concerning for malignancy. There are patchy lytic changes within the bones concerning for metastatic disease. KUB X-Ray 05/03/20 11:54 IMPRESSION: Small bowel obstruction. The NG tube is in the fundus of the stomach. Assessment and Plan - Diagnosis (1) Partial small bowel obstruction Is this a current diagnosis for this admission?: Yes Plan: As the patient will be going home on comfort his medications have been discontinued except for those related to pain and agitation. He will have morphine, lorazepam and acetaminophen available. We did place a nasogastric tube to try and decompress his abdomen as much as possible before discharge. Unfortunately the discharge is postponed and I do not wish to traumatize the patient any further since the nasogastric tube was pulled for the expected pickup time. It was helpful because it did remove over 500 mL of drainage. (2) Abdominal pain Qualifiers: Abdominal location: generalized Qualified Code(s): R10.84 - Generalized abdominal pain Is this a current diagnosis for this admission?: Yes Plan: From the small bowel obstruction. No further intervention as the patient will be going home on hospice. (3) Metastatic lung cancer (metastasis from lung to other site) Qualifiers: Laterality: unspecified laterality Qualified Code(s): C34.90 - Malignant neoplasm of unspecified part of unspecified bronchus or lung Is this a current diagnosis for this admission?: Yes Plan: Extremely unfortunate patient with brain metastases. He is going home on hospice. This is supported by oncology as well. (4) Longstanding persistent atrial fibrillation Is this a current diagnosis for this admission?: Yes Plan: No further cardiac medications at this time (5) Constipation Qualifiers: Constipation type: drug induced constipation Qualified Code(s): K59.03 - Drug induced constipation Is this a current diagnosis for this admission?: Yes Plan: No further intervention (6) Leukocytosis Qualifiers: Leukocytosis type: unspecified Qualified Code(s): D72.829 - Elevated white blood cell count, unspecified Is this a current diagnosis for this admission?: Yes Plan: No longer following laboratory studies (7) Pain due to neoplasm Is this a current diagnosis for this admission?: Yes Plan: Aggressive pain management at this time. - Plan Summary Summary: . - Time Time Spent with patient: 15-24 minutes Anticipated Discharge Disposition: Home with Home Health Anticipated Discharge Timeframe: within 24 hours
[2020-05-03] MEDS ORDERED: SENNOSIDES/DOCUSATE 8.6-50 MG 1 EACH TABLET NG SCH (22:00)
[2020-05-04] MEDS: LORAZEPAM INJ 2 MG/1 ML VIAL IV PRN ×2 (02:22→08:07)
[2020-05-04] MEDS: HYDROMORPHONE HCL INJ/PF 2 MG/ML AMPULE IV PRN ×2 (03:41→08:07)
[2020-05-04 04:09] VITALS: BP 139/72
== END 2020-05-04 08:15 | disposition hospice, home (50) | DRG 389 ==
LOC: ER 13:17 → EH 22:07 → 3W 04-28 01:15
PROVIDERS: ADMIT Emergency Medicine; ATTEND Hospitalist
DX: K56.600 Partial intestinal obstruction, unspecified as to cause (principal); C34.90 Malignant neoplasm of unspecified part of unspecified bronchus or lung; C79.89 Secondary malignant neoplasm of other specified sites; C79.31 Secondary malignant neoplasm of brain; I48.11 Longstanding persistent atrial fibrillation; K59.03 Drug induced constipation; G89.3 Neoplasm related pain (acute) (chronic); T40.605A Adverse effect of unspecified narcotics, initial encounter; I50.9 Heart failure, unspecified; I11.0 Hypertensive heart disease with heart failure; E78.00 Pure hypercholesterolemia, unspecified; J44.9 Chronic obstructive pulmonary disease, unspecified; K21.9 Gastro-esophageal reflux disease without esophagitis; Y92.018 Other place in single-family (private) house as the place of occurrence of the external cause; Z79.82 Long term (current) use of aspirin; Z79.891 Long term (current) use of opiate analgesic; Z79.51 Long term (current) use of inhaled steroids; Z79.899 Other long term (current) drug therapy; Z11.59 Encounter for screening for other viral diseases
CPT/HCPCS: 36415; 74018; 74176; 80053; 81001; 82962; 83605; 83735; 84443; 85025; 85027; 87070; 87635; 93005; 93010; 94660; 96374; 96375; 99285; C9113; C9803; J1170; J1642; J1650; J2060; J2405; J3480; J3490; J7030; J7120